=== PATIENT | male | born 1965 | race Caucasian/White ===

== ENCOUNTER 2016-07-10 09:14 | Observation (INO) | payer OTHER ==
[~2016-07-10] VITALS: Ht 188 cm; Wt 114.8 kg
[2016-07-10] VITALS (9 sets, daily range): BP systolic 126–158; BP diastolic 66–93; PULSE 65–82; RESP 17–20; TEMP 97.5–98.2; O2SAT 94–99
[~2016-07-10 09:14] MED LIST: ALBU0.63 NEB; CALC1CHW46 PO; CYTO5TAB PO; D 10CAP PO; DEPA500T3 PO; DIAZ5TAB PO; FLUT1INH7 INH; GABA800T PO; HUMUINJ5; IMIT100T PO; LEVO125T4 PO; LURA40 PO; METF1000 PO; METO100T PO; NEXI40CA PO; QUET50XR PO; SIMP50IN2 IM; SPIR50TA PO; TIZA4CAP3 PO; VENTAER INH; ZOLP10TA3 PO
--- NOTE | 2016-07-10 09:44 | PD ---
HPI Chief Complaint: Numbness/Tingling Time Seen by Provider: 09:42 Travel History International Travel<30 days: No Contact w/Intl Traveler<30days: No Traveled to known affect area: No History of Present Illness HPI 50-year-old male came to the emergency room with sudden onset history of dizziness since 7 AM, blurred vision and some left-sided facial numbness. Patient was here with his . No history of CVA or TIAs in the past. Patient is insulin-dependent diabetic and his blood glucose was 149 upon arrival. Speech was clear and patient was awake and answering questions appropriately. He says he felt like the room was spinning. No history of syncope. No history of chest pain. Patient has been nauseous. No history of vomiting. [facility] Past Medical History Narrative Medical List of his past medical, surgical, social and family history was reviewed from the nursing note. Arthritis: Yes Asthma: Yes Blood Disorders: No Bipolar Disorder: Yes Anxiety: Yes (BIPOLAR WITH PANIC ATTACKS AND SEVERE ANXIETY) Depression: Yes Heart Rhythm Problems: No Cancer: Yes (THYROID) Cardiac Catheterization: Yes (2006) Cardiovascular Problems: Yes High Cholesterol: Yes Chest Pain: No Congestive Heart Failure: No Diabetes: Yes Diminished Hearing: No Endocrine: Yes (HYPOALDOSTORISM) Gastrointestinal Disorders: Yes (GERD) GERD: Yes Genitourinary: No Headaches: Yes Hepatitis: No Hiatal Hernia: No Hypertension: Yes (SPORTS ASTHMA (RESOLVED)) Immune Disorder: No Implanted Vascular Access Dvce: Yes Musculoskeletal: Yes (LUMBAR FUSION/ NERVE STIM., ARTHRITIS) Neurologic: Yes (MIGRAINES) Psychiatric: Yes (CLAUSTROPHOBIC, BIPOLAR) Reproductive: No Respiratory: Yes (PNA) Myocardial Infarction: No Pneumonia: Yes Sleep Apnea: Yes (USES CPAP) Thyroid Disease: Yes (CANCER) Past Surgical History Abdominal Surgery: Yes (LAP CHOLECYSTECTOMY) AICD: No Body Medical Devices: LOWER BACK TITANIUM SCREWS AND RODS, SPINAL CORD STIMULATOR Cardiac Surgery: No Cholecystectomy: Yes Ear Surgery: No Endocrine Surgery: Yes (THYROIDECTOMY) Eye Surgery: No Genitourinary Surgery: Yes (2000 VASECTOMY) Gynecologic Surgery: Yes Insulin Pump: Yes Joint Replacement: No Neurologic Surgery: Yes (LUMBAR FUSION, SPINAL STIMULATOR IMPL.) Oral Surgery: No Pacemaker: No Thoracic Surgery: No Other Surgery: Yes (EX. SCAR FOOT, ARTHROSCOPY RIGHT KNEE, NEUROSTEM STENT IN AND REMOVED) Social History Alcohol Use: Yes (briefly ) Tobacco Use: No Substance Use: No Allergies-Medications (Allergen,Severity, Reaction): Coded Allergies: Calcium Channel Blockers (Verified Allergy, Mild, Edema, 07/10/16) Enalapril (Verified Allergy, Mild, Cough, 07/10/16) Questran (Verified Allergy, Mild, NAUSEA, 07/10/16) HMG-CoA Reductase Inhibitors (Verified Allergy, Unknown, enlarged liver, ) Comments List of his allergies reviewed from the nursing note. Reported Meds & Prescriptions Reported Meds & Active Scripts Active Reported Vitamin D3 (Cholecalciferol) 50,000 Unit Tab 50,000 Units PO Take 1 tablet (50,000 units) on Thursday and Thursday Morphine ER (Morphine Sulfate) 15 Mg Tab 15 Mg PO BID Pantoprazole (Pantoprazole Sodium) 40 Mg Tab 40 Mg PO DAILY Mobic (Meloxicam) 15 Mg Tab 15 Mg PO DAILY Take with food Seroquel (Quetiapine Fumarate) 25 Mg Tab 125 Mg PO HS Quetiapine (Quetiapine Fumarate) 25 Mg Tab 50-100 Mg PO DAILY IN THE AM Gabapentin 400 Mg Cap 800 Cap PO TID Albuterol Neb (Albuterol Sulfate) 0.63 Mg/3 Ml Neb 0.63 Mg NEB Q4HR NEB PRN Breo Ellipta Inh (Fluticasone/Vilanterol) 200-25 Mcg/Act Inh 1 Puff INH DAILY Use daily at the same time. Latuda (Lurasidone) 40 Mg Tab 40 Mg PO DAILY Spironolactone 50 Mg Tab 100 Mg PO BID Ventolin Hfa 18 GM Inh (Albuterol Sulfate) 90 Mcg/Act Aer 2 Puff INH Q4H PRN Chewable Calcium (Calcium Carbonate) 500 Mg Chw 500 Mg PO BID Depakote ER (Divalproex Sodium) 500 Mg Khanh 2,500 Mg PO HS Humulin R U-500 (Concentrate) Inj (Insulin Regular (Human) Concentrate Inj) 10, 000 Unit/20 Ml Vial VIA INSULIN PUMP Levothyroxine (Levothyroxine Sodium) 125 Mcg Tab 250 Mcg PO DAILY Cytomel (Liothyronine Sodium) 5 Mcg Tab 10 Mcg PO BID Metoprolol Tartrate 100 Mg Tab 200 Mg PO BID Simponi Autoinjector Inj (Golimumab) 50 Mg/0.5 Ml Syr 50 Mg IM Q30D Imitrex (Sumatriptan Succinate) 100 Mg Tab 100 Mg PO ONCE PRN If a satisfactory response has not been obtained at 2 hours, a second dose may be administered Zolpidem (Zolpidem Tartrate) 10 Mg Tab 10 Mg PO HS PRN Narrative Medication List of his home medications reviewed from the nursing note. Review of Systems Except as stated in HPI: all other systems reviewed are Neg Physical Exam Narrative GENERAL: Awake, alert, obese, moderate distress SKIN: Warm and dry. Pale HEAD: Atraumatic. Normocephalic. EYES: Pupils equal and round. No scleral icterus. No injection or drainage. ENT: No nasal bleeding or discharge. Mucous membranes pink and moist. Dry mucous membrane NECK: Trachea midline. No JVD. CARDIOVASCULAR: Regular rate and rhythm. No murmur appreciated. RESPIRATORY: No accessory muscle use. Clear to auscultation. Breath sounds equal bilaterally. GASTROINTESTINAL: Abdomen soft, non-tender, nondistended. Hepatic and splenic margins not palpable. MUSCULOSKELETAL: No obvious deformities. No clubbing. No cyanosis. No edema. NEUROLOGICAL: Awake and alert. No obvious cranial nerve deficits. Motor grossly within normal limits. Normal speech. NIH stroke score of 1 for some left-sided sensory deficit PSYCHIATRIC: Appropriate mood and affect; insight and judgment normal. Data Data Last Documented VS Orders Electrocardiogram (07/10/16 09:42) Prothrombin Time / Inr (Pt) (07/10/16 09:42) Complete Blood Count With Diff (07/10/16 09:42) Basic Metabolic Panel (Bmp) (07/10/16 09:42) Troponin I (07/10/16 09:42) Urinalysis - C+S If Indicated (07/10/16 09:42) Ct Brain W/O Iv Contrast(Rout) (07/10/16 09:42) Chest, Single Ap (07/10/16 09:42) Ecg Monitoring (07/10/16 09:42) Iv Access Insert/Monitor (07/10/16 09:42) Oximetry (07/10/16 09:42) Sodium Chloride 0.9% Flush (Ns Flush) (07/10/16 09:45) Sodium Chlorid 0.9% 500 Ml Inj (Ns 500 M (07/10/16 09:45) Type And Screen (07/10/16 09:43) Mri Brain W/O Contrast (07/10/16 ) Us Carotid Arteries Comp Bilat (07/10/16 ) Ondansetron Inj (Zofran Inj) (07/10/16 10:29) Aspirin Chew (Aspirin Chew) (07/10/16 11:45) Meclizine (Antivert) (07/10/16 12:00) Ondansetron Inj (Zofran Inj) (07/10/16 12:00) Admit Order (Ed Use Only) (07/10/16 12:02) Labs MDM Medical Decision Making Medical Screen Exam Complete: Yes Emergency Medical Condition: Yes Medical Record Reviewed: Yes Interpretation(s) Twelve-lead EKG was reviewed by me. Normal sinus rhythm, left axis deviation, low voltage, nonspecific ST-T wave changes. Heart rate of 77 bpm. Differential Diagnosis CVA, TIA, vertigo Narrative Course 11:50 AM based on his symptoms I initially contacted Dr. Paul from neurology. I did not feel the need to call it a stroke alert given the inconsistent findings on NIH stroke score. Patient had good peripheral vision bilaterally. However when I asked him to read the picture he said the picture was blurry. However when he covered his left eye he was able to identify objects and identify the picture clearly. By covering his left eye again when I asked him to read the sentences on the NIH stroke score card he was unable to read anything because he said it was blurry. Once again these symptoms have been very inconsistent with any kind of anatomical correlation with brain pathways. Dr. Paul agreed with this. He recommended 1 baby aspirin orally for now. MRI without contrast of the brain only and an ultrasound of the carotids. I called him back for ultrasound report. Patient has a spinal nerve stimulator which he has turned off. Currently waiting for MRI to be done and resulted. Admitted the patient to the hospitalist. Patient is still dizzy and nauseous and I have ordered meclizine and another dose of Zofran. 3:18 PM the MRI machine that's in this institution is incompatible with the neurostimulator that the patient has currently. I was told by the sewer and drain technician that the MRI machine that's in [facility] is the one that is compatible. Hence the patient is to be transferred to [place] to get the MRI done. I discussed the case with Dr. Rm who had initially admitted the patient here. I asked if from he was acceptable with the fact that patient gets admitted in [facility] at this point since he is still in the emergency room and there is not a bed available in this institution. He spoke with Dr. Velasco who also happens to be the patient's primary care doctor and he has accepted the patient in [facility]. Patient will not be transferred to [place] to get the MRI done and be admitted to there. Critical Care Narrative Aggregate critical care time was 30 minutes. Time to perform other separately billable procedures was not included in the critical care time. My time did not include minutes spent treating any other patients simultaneously or on activities that did not directly contribute to the patient's treatment. The services I provided to this patient were to treat and/or prevent clinically significant deterioration that could result in: Sudden onset of dizziness, TIA I provided critical care services requiring my management, as noted below: Chart data review, documentation time, medication orders and management, vital sign assessments/reviewing monitor data, ordering and reviewing lab tests, ordering and interpreting/reviewing x-rays and diagnostic studies, care of the patient and discussion of the patient with the admitting physicians. Procedures EKG Prior to Arrival: No Physician Communication Physician Communication Dr. Paul Diagnosis Primary Impression: TIA (transient ischemic attack) Qualified Code: G45.9 - Transient cerebral ischemia, unspecified type Additional Impression: Dizziness Admitting Information Admitting Physician Requests: Admit Scripts Ondansetron Odt 4 Mg Tab4 Mg SL Q6HR PRN (Nausea/Vomiting) #10 TAB Ref 0 Prov:Emmett Velasco MD PhD 07/11/16 Meclizine 25 Mg Tab25 Mg PO Q6HR PRN (DIZZINESS) #90 TAB Prov:Emmett Velasco MD PhD 07/11/[address] (Aspirin EC)81 Mg Tabdr81 Mg PO DAILY #31 TAB Prov:Emmett Velasco MD PhD 07/11/16 Disposition: 70 TRANSFER TO OTHER FACILITY Fabien García MD Jul 10, 2016 09:44 Blood Urea Nitrogen 15 MG/DL Creatinine 1.10 MG/DL Estimat Glomerular Filtration 71 ML/MIN Rate Random Glucose 150 MG/DL Calcium Level 9.2 MG/DL Troponin I LESS THAN 0.02 NG/ML Blood Type B POSITIVE Antibody Screen NEGATIVE MDM Medical Decision Making Medical Screen Exam Complete: Yes Emergency Medical Condition: Yes Medical Record Reviewed: Yes Interpretation(s) Twelve-lead EKG was reviewed by me. Normal sinus rhythm, left axis deviation, low voltage, nonspecific ST-T wave changes. Heart rate of 77 bpm. Differential Diagnosis CVA, TIA, vertigo Narrative Course 11:50 AM based on his symptoms I initially contacted Dr. Paul from neurology. I did not feel the need to call it a stroke alert given the inconsistent findings on NIH stroke score. Patient had good peripheral vision bilaterally. However when I asked him to read the picture he said the picture was blurry. However when he covered his left eye he was able to identify objects and identify the picture clearly. By covering his left eye again when I asked him to read the sentences on the NIH stroke score card he was unable to read anything because he said it was blurry. Once again these symptoms have been very inconsistent with any kind of anatomical correlation with brain pathways. Dr. Paul agreed with this. He recommended 1 baby aspirin orally for now. MRI without contrast of the brain only and an ultrasound of the carotids. I called him back for ultrasound report. Patient has a spinal nerve stimulator which she has turned off. Currently waiting for MRI to be done and resulted. Admitted the patient to the hospitalist. Patient is still dizzy and nauseous and I have ordered meclizine and another dose of Zofran. 3:18 PM the MRI machine that's in this institution is incompatible with the neurostimulator that the patient has currently. I was told by the sewer and drain technician that the MRI machine that's in [facility] is the one that is compatible. Hence the patient is to be transferred to [facility] to get the MRI done. I discussed the case with Dr. Rm who had initially admitted the patient here. I asked if from he was acceptable with the fact that patient gets admitted in [facility] at this point since he is still in the emergency room and there is not a bed available in this institution. He spoke with Dr. Velasco who also happens to be the patient's primary care doctor and he has accepted the patient in [facility]. Patient will not be transferred to [facility] to get the MRI done and be admitted to there. Critical Care Narrative Aggregate critical care time was 30 minutes. Time to perform other separately billable procedures was not included in the critical care time. My time did not include minutes spent treating any other patients simultaneously or on activities that did not directly contribute to the patient's treatment. The services I provided to this patient were to treat and/or prevent clinically significant deterioration that could result in: Sudden onset of dizziness, TIA I provided critical care services requiring my management, as noted below: Chart data review, documentation time, medication orders and management, vital sign assessments/reviewing monitor data, ordering and reviewing lab tests, ordering and interpreting/reviewing x-rays and diagnostic studies, care of the patient and discussion of the patient with the admitting physicians. Procedures EKG Prior to Arrival: No Physician Communication Physician Communication Dr. Paul Diagnosis Primary Impression: TIA (transient ischemic attack) Qualified Code: G45.9 - Transient cerebral ischemia, unspecified type Additional Impression: Dizziness Disposition: 70 TRANSFER TO OTHER FACILITY Fabien García MD Jul 10, 2016 09:44
[2016-07-10] MEDS ORDERED: SODIUM CHLORIDE 0.9% FLUSH 10 ML FLUSH IVF PRN (09:45)
[2016-07-10] MEDS ORDERED: SODIUM CHLORID 0.9% 500 ML INJ 500 ML IV ONE (09:45)
[2016-07-10 10:07] LABS: AUTOMATED NEUTROPHIL # 3.9 TH/MM3 (1.8-7.7); BASOPHIL % 0.5 % (0.0-2.0); EOSINOPHIL # 0.1 TH/MM3 (0-0.4); EOSINOPHIL % 1.4 % (0.0-4.0); HEMATOCRIT 35.1 % (39.0-51.0); LYMPH % 24.8 % (9.0-44.0); LYMPHOCYTE # 1.6 TH/MM3 (1.0-4.8); MEAN CELL VOLUME 73.1 FL (80.0-100.0); MEAN CORPUSCULAR HGB CONC 32.8 % (32.0-36.0); MONO % 12.8 % (0.0-8.0); NEUT % 60.5 % (16.0-70.0); PLATELET COUNT 142 TH/MM3 (150-450); RED CELL DISTRIBUTION WIDTH 16.9 % (11.6-17.2); WHITE BLOOD COUNT 6.5 TH/MM3 (4.0-11.0)
[2016-07-10 10:10] LABS: HEMO FLAGS AUTO DIFF
[2016-07-10 10:17] LABS: PROTHROMBIN TIME - PATIENT 10.8 SEC (9.8-11.6)
[2016-07-10] MEDS ORDERED: ONDANSETRON HCL 4 MG/2 ML VIAL ONE (10:29)
[2016-07-10 10:38] LABS: ANION GAP 7 MEQ/L (5-15); BICARBONATE 29.7 MEQ/L (21.0-32.0); BLOOD UREA NITROGEN 15 MG/DL (7-18); CHLORIDE 104 MEQ/L (98-107); GLOMERULAR FILTRATION RATE 71 ML/MIN (>89); POTASSIUM 3.8 MEQ/L (3.5-5.1); SODIUM (NA) 141 MEQ/L (136-145)
[2016-07-10 10:39] LABS: PLATELET ESTIMATE SMEAR LOW (NORMAL); PLATELET MORPHOLOGY NORMAL (NORMAL); SCAN/DIFF AUTO DIFF CONFIRMED
--- NOTE | 2016-07-10 10:43 | RADRPT ---
EXAM DATE/TIME: 07/10/2016 09:51 [facility] COMPARISON: CHEST SINGLE AP, March 12, 2016, 12:25. INDICATIONS : Dizziness. Possible cerebrovascular accident. MEDICAL HISTORY : Gastroesophageal reflux disease. Carcinoma, thyroid. Hyperlipidemia. Diabetes. Steatohepatitis. SURGICAL HISTORY : Cholecystectomy. ENCOUNTER: Initial ACUITY: 1 day PAIN SCORE: 0/10 LOCATION: Bilateral chest FINDINGS: The heart is stable. Minimal bibasilar patchiness is noted consistent with atelectasis and/or develop ing infiltrates. Degenerative changes are noted throughout the thoracic spine. CONCLUSION: 1. Minimal bibasilar patchiness consistent with atelectasis and/or developing infiltrates. Clinical correlation is recommended. 2. Degenerative changes involving the thoracic spine. Francis Ricardo MD on July 10, 2016 at 10:32 Board Certified Radiologist. This report was verified electronically.
--- NOTE | 2016-07-10 10:56 | RADRPT ---
EXAM DATE/TIME: 07/10/2016 10:19 [facility] COMPARISON: CT BRAIN W/O CONTRAST, February 07, 2011, 21:35. INDICATIONS : Dizziness, blurred vision. Facial numbess. RADIATION DOSE: 46.50 CTDIvol (mGy) MEDICAL HISTORY : Carcinoma, thyroid. Cardiovascular disease Hypertension. SURGICAL HISTORY : Thyroidectomy. ENCOUNTER: Initial ACUITY: 1 day PAIN SCALE: 0/10 LOCATION: cranial TECHNIQUE: Multiple contiguous axial images were obtained of the head. Using automated exposure control and adj ustment of the mA and/or kV according to patient size, radiation dose was kept as low as reasonably a chievable to obtain optimal diagnostic quality images. FINDINGS: CEREBRUM: The ventricles are normal for age. Diffuse and symmetric cortical atrophy has developed since the 09 03 exam. No evidence of midline shift, mass lesion, hemorrhage or acute infarction. No extra-axial f luid collections are seen. POSTERIOR FOSSA: The cerebellum and brainstem are intact. Stable, probably old lacunar type infarct in the right cere bellar hemisphere. The 4th ventricle is midline. The cerebellopontine angle is unremarkable. EXTRACRANIAL: The visualized portion of the orbits is intact. SKULL: The calvaria is intact. No evidence of skull fracture. CONCLUSION: 1. 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 2. Symmetric, bilateral cortical atrophy. No acute intracranial process. Jim Avalos MD on July 10, 2016 at 10:51 Board Certified Radiologist. This report was verified electronically.
--- NOTE | 2016-07-10 11:09 | RADRPT ---
EXAM DATE/TIME: 07/10/2016 10:31 [facility] COMPARISON: No previous studies available for comparison. INDICATIONS : Cerebrovascular accident. MEDICAL HISTORY : Carcinoma, thyroid. Hypercholesterolemia. Arthritis. Migraines. Peripheral neuropathy in feet. Hyperl ipidemia. Ashtma. HTN. GERD. Pneumonia. Sleep apnea. Hypoaldostorism. Diabetes. Steatohepatitis/fatty liver. Bipolar disorder. Anxiety. SURGICAL HISTORY : Cholecystectomy. Thyroidectomy. Lumbar fusion. Spinal stimulator implant. Cardiac cath. Gastric sle hansel. Vasectomy. Right knee surgery. Left foot surgery to remove scar tissue. Neurostem stent placed a nd removed. ENCOUNTER: Initial ACUITY: 1 day PAIN SCORE: 2/10 LOCATION: Bilateral neck PEAK SYSTOLIC VELOCITIES (cm/sec): ICA/CCA RATIO: Right: 1.0 Left: 0.8 ICA: Right: 110 Left: 96 CCA: Right: 111 Left: 115 ECA: Right: 86 Left: 86 VERTEBRAL: Right: 68 antegrade Left: 25 antegrade Elevated flow velocities and ICA/CCA ratios have been found to correlate with increased degrees of vessel stenosis, calculated as percentage of diameter relative to a normal segment of distal ICA/CCA FINDINGS: RIGHT CAROTID: No significant stenosis is visualized. The waveforms are within normal limits. LEFT CAROTID: No significant stenosis is visualized. The waveforms are within normal limits. VERTEBRAL ARTERIES: Antegrade flow is seen in both vertebral arteries. However, the waveform on the left vertebral artery appears venous with minimal arterial pulsations. MISCELLANEOUS: None. CONCLUSION: 1. Doppler waveform in the left vertebral artery shows characteristics of a venous flow possibly repr esenting a proximal stenosis. There are also diminished velocities in the left vertebral. 2. Otherwise negative. Both carotids appear to be widely patent with no significant atherosclerotic d isease. Antegrade flow in both vertebrals. Jim Avalos MD on July 10, 2016 at 11:05 Board Certified Radiologist. This report was verified electronically.
[2016-07-10] MEDS ORDERED: ASPIRIN 81 MG CHEW TAB CHEW ONE (11:45)
[2016-07-10] MEDS ORDERED: ONDANSETRON HCL 4 MG/2 ML VIAL IV PUSH ONE (12:00)
[2016-07-10] MEDS ORDERED: MECLIZINE HCL 25 MG TAB PO ONE (12:00)
[2016-07-10] MEDS ORDERED: MORP1TAB24 PO (13:21)
[2016-07-10] MEDS ORDERED: GABA400C5 PO (13:21)
[2016-07-10] MEDS ORDERED: QUET1TAB7 PO (13:21)
[2016-07-10] MEDS ORDERED: MOBI15TA PO (13:21)
[2016-07-10] MEDS ORDERED: SERO25TA PO (13:21)
[2016-07-10] MEDS ORDERED: PANT40TA3 PO (13:21)
[2016-07-10 13:23] LABS: BLOOD, URINE NEG (NEG); COMMENT (UR) CATH-CULT NOT IND; CULTURE IF INDICATED CATH CULTURE NOT IND; GLUCOSE,URINE 1000 mg/dL (NEG); HYALINE CAST, URINE 5 /lpf (RARE); KETONE, URINE TRACE mg/dL (NEG); MUCUS URINE FEW /lpf (OCC); NITRITE,URINE NEG (NEG); SQUAMOUS EPITHELIAL CELL URINE <1 /hpf (0-5); URINE COLOR YELLOW (YELLW/STRAW)
[2016-07-10] MEDS ORDERED: CHOL1TAB16 PO (13:43)
[2016-07-10] MEDS ORDERED: ONDANSETRON HCL 4 MG/2 ML VIAL IV PRN (13:45)
[2016-07-10] MEDS ORDERED: ZOLPIDEM TARTRATE 10 MG TAB PO PRN (13:45)
[2016-07-10] MEDS ORDERED: ACETAMINOPHEN 325 MG TAB PO PRN (13:45)
[2016-07-10] MEDS ORDERED: RESP: ALBUTEROL 0.63 MG/3 ML NEB (PRN) NEB (13:45)
[2016-07-10] MEDS ORDERED: SUMAtriptan SUCCINATE 50 MG TAB PO PRN (13:45)
[2016-07-10] MEDS ORDERED: ALBUTEROL SULFATE 90 MCG/ACT HFA 8 GM INHALER INH PRN (13:45)
--- NOTE | 2016-07-10 14:17 | HHI.HP ---
HPI Service [facility] Primary Care Physician Emmett Velasco MD, PhD Admission Diagnosis TIA, dizziness Chief Complaint: Dizziness Travel History International Travel<30 Days: No Contact w/Intl Traveler <30 Da: No Traveled to Known Affected Are: No History of Present Illness Mr. Zavala is a pleasant 50 y/o WM with diabetes with neuropathy and nephropathy , essential hypertriglyceridemia, HTN, hypothyroidism, chronic back pain and GERD. Pt woke up at 0700 this morning with nausea and dizziness like the room was spinning. This worsened with rolling over in bed or with sitting up, pt still unable to sit up on the stretcher due to the dizziness. He felt off balance and seemed to be falling to the sides while attempting to walk. This morning he did have a headache and reports blurry vision intermittently and left sided facial tingling sensation. He states that his daughter took a video of him this morning and we viewed this video and it revealed that he had horizontal nystagmus. He had one episode of vomiting today when he went for the CT scan. He denies any recent viral illness or symptoms, no known hx of CVA or TIA, no known history of BPV. He reports that he started Meloxicam and Morphine 1 month ago otherwise no new medications. Denies any chest pain or palpitations. No hx of A. fib or flutter. Pt noted to be in sinus rhythm on telemetry in the ED. Denies any abd pain, melena or BRBPR. He received Meclizine in the ED but states that this did not help. Head CT noted probable old lacunar type infarct in the right cerebellar hemisphere and symmetric, bilateral cortical atrophy, otherwise no acute intracranial process. Review of Head CT from 2010 noted similar findings. Pt has been seen by Neurology and they are requesting MRI of the brain. Due to the type of nerve stimulator the pt has he is unable to have MRI performed at the main campus but the MRI machine in [facility] is compatible and pt is planned for transfer to [facility]. Review of Systems Constitutional: COMPLAINS OF: Dizziness, DENIES: Fever, Chills Eyes: COMPLAINS OF: Blurred vision, DENIES: Eye pain, Vision loss, Double Vision Ears, nose, mouth, throat: COMPLAINS OF: Vertigo, DENIES: Nasal discharge, Throat pain, Hoarseness Respiratory: DENIES: Cough, Shortness of breath Cardiovascular: DENIES: Chest pain, Palpitations Gastrointestinal: COMPLAINS OF: Nausea, Vomiting, DENIES: Abdominal pain, Constipation, Diarrhea Genitourinary: DENIES: Hematuria, Dysuria Musculoskeletal: DENIES: Neck pain Integumentary: DENIES: Rash Neurologic: COMPLAINS OF: Headache, Paresthesias, Poor Balance, DENIES: Localized weakness, Speech Problems Psychiatric: DENIES: Confusion Past Family Social History Past Medical History Generalized anxiety disorder Conn's syndrome Bipolar disorder type I, mixed History of thyroid cancer Obesity Diabetes with neuropathy and nephropathy Essential hypertriglyceridemia Lumbar facet syndrome with chronic pain GERD Hypertension Hypothyroidism Metabolic syndrome Migraine headaches Obesity Panic disorder without turgor phobia Postlaminectomy syndrome Rheumatoid arthritis Drug-induced Parkinson syndrome Questionable asthmatic bronchitis Past Surgical History Bronchoscopy 02/[address] Crystal Cardiac catheter reportedly negative Cholecystectomy Circumcision due to phimosis Lumbar laminectomy Gastric bypass surgery for morbid obesity Multiple lumbar paravertebral blocks Rhizotomy Spinal neurostimulator placement Vasectomy Total thyroidectomy L4 to S1 fusion Reported Medications Vitamin D3 (Cholecalciferol) 50,000 Unit Tab 50,000 Units PO Take 1 tablet (50,000 units) on and Thursday Morphine ER (Morphine Sulfate) 15 Mg Tab 15 Mg PO BID Pantoprazole (Pantoprazole Sodium) 40 Mg Tab 40 Mg PO DAILY Mobic (Meloxicam) 15 Mg Tab 15 Mg PO DAILY Take with food Seroquel (Quetiapine Fumarate) 25 Mg Tab 125 Mg PO HS Quetiapine (Quetiapine Fumarate) 25 Mg Tab 50-100 Mg PO DAILY IN THE AM Gabapentin 400 Mg Cap 800 Cap PO TID Diazepam 5 Mg Tab 5 Mg PO DAILY PRN Albuterol Neb (Albuterol Sulfate) 0.63 Mg/3 Ml Neb 0.63 Mg NEB Q4HR NEB PRN Breo Ellipta Inh (Fluticasone/Vilanterol) 200-25 Mcg/Act Inh 1 Puff INH DAILY Use daily at the same time. Latuda (Lurasidone) 40 Mg Tab 40 Mg PO DAILY Spironolactone 50 Mg Tab 100 Mg PO BID Ventolin Hfa 18 GM Inh (Albuterol Sulfate) 90 Mcg/Act Aer 2 Puff INH Q4H PRN Chewable Calcium (Calcium Carbonate) 500 Mg Chw 500 Mg PO BID Depakote ER (Divalproex Sodium) 500 Mg Khanh 2,500 Mg PO HS Humulin R U-500 (Concentrate) Inj (Insulin Regular (Human) Concentrate Inj) 10, 000 Unit/20 Ml Vial VIA INSULIN PUMP Levothyroxine (Levothyroxine Sodium) 125 Mcg Tab 250 Mcg PO DAILY Cytomel (Liothyronine Sodium) 5 Mcg Tab 10 Mcg PO BID Metoprolol Tartrate 100 Mg Tab 200 Mg PO BID Simponi Autoinjector Inj (Golimumab) 50 Mg/0.5 Ml Syr 50 Mg IM Q30D Imitrex (Sumatriptan Succinate) 100 Mg Tab 100 Mg PO ONCE PRN If a satisfactory response has not been obtained at 2 hours, a second dose may be administered Zolpidem (Zolpidem Tartrate) 10 Mg Tab 10 Mg PO HS PRN Allergies: Coded Allergies: Calcium Channel Blockers (Verified Allergy, Mild, Edema, 07/10/16) Enalapril (Verified Allergy, Mild, Cough, 07/10/16) Questran (Verified Allergy, Mild, NAUSEA, 07/10/16) HMG-CoA Reductase Inhibitors (Verified Allergy, Unknown, enlarged liver, ) Family History Father had bipolar disorder, hypertension, hyperlipidemia, obesity, type 2 diabetes Mother has hypertension There is family history of pancreatic cancer Social History Patient is and lives with his mother He has 2 children Denies any tobacco use or illicit drug use Rarely drinks any alcohol 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 HEENT: Atraumatic. Normocephalic. No temporal or scalp tenderness. No scleral icterus. Airway patent. NECK: Trachea midline, supple, nontender. CARDIO: Regular. RESP: CTA bilaterally. No wheezes, rales, or rhonchi. ABD: +BS, soft, non-tender, nondistended. EXT: Extremities without clubbing, cyanosis, or edema. NEURO: Awake and alert. No obvious cranial nerve deficits. Motor and sensory grossly within normal limits. Normal speech. MInimal reflexes in the LE which is chronic per the pt. Laboratory Laboratory Tests Test 07/10/16 07/10/16 09:50 12:42 White Blood Count 6.5 Red Blood Count 4.80 Hemoglobin 11.5 Hematocrit 35.1 Mean Corpuscular Volume 73.1 Mean Corpuscular Hemoglobin 24.0 Mean Corpuscular Hemoglobin 32.8 Concent Red Cell Distribution Width 16.9 Platelet Count 142 Mean Platelet Volume 9.0 Neutrophils (%) (Auto) 60.5 Lymphocytes (%) (Auto) 24.8 Monocytes (%) (Auto) 12.8 Eosinophils (%) (Auto) 1.4 Basophils (%) (Auto) 0.5 Neutrophils # (Auto) 3.9 Lymphocytes # (Auto) 1.6 Monocytes # (Auto) 0.8 Eosinophils # (Auto) 0.1 Basophils # (Auto) 0.0 CBC Comment AUTO DIFF Differential Comment AUTO DIFF CONFIRMED Platelet Estimate LOW Platelet Morphology Comment NORMAL Prothrombin Time 10.8 Prothromb Time International 1.0 Ratio Sodium Level 141 Potassium Level 3.8 Chloride Level 104 Carbon Dioxide Level 29.7 Anion Gap 7 Blood Urea Nitrogen 15 Creatinine 1.10 Estimat Glomerular Filtration 71 Rate Random Glucose 150 Calcium Level 9.2 Troponin I LESS THAN 0.02 Blood Type B POSITIVE Antibody Screen NEGATIVE Urine Color YELLOW Urine Turbidity CLEAR Urine pH 6.0 Urine Specific [place] 1.031 Urine Protein TRACE Urine Glucose (UA) 1000 Urine Ketones TRACE Urine Occult Blood NEG Urine Nitrite NEG Urine Bilirubin NEG Urine Urobilinogen 2.0 Urine Leukocyte Esterase NEG Urine RBC LESS THAN 1 Urine WBC 1 Urine Squamous Epithelial <1 Cells Urine Hyaline Casts 5 Urine Mucus FEW Microscopic Urinalysis Comment CATH-CULT NOT IND Result Diagram: 07/10/1650 07/10/16949 Imaging Last Impressions Head CT 07/10/16941 Signed Impressions: Service Date/Time: June 10:19 - CONCLUSION: 1. 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 2. Symmetric, bilateral cortical atrophy. No acute intracranial process. Jim Avalos MD Chest X-Ray 07/10/16941 Signed Impressions: Service Date/Time: June 09:51 - CONCLUSION: 1. Minimal bibasilar patchiness consistent with atelectasis and/or developing infiltrates. Clinical correlation is recommended. 2. Degenerative changes involving the thoracic spine. Francis Ricardo MD Carotid Artery Ultrasound 07/10/16 0000 Signed Impressions: Service Date/Time: June 10:31 - CONCLUSION: 1. Doppler waveform in the left vertebral artery shows characteristics of a venous flow possibly representing a proximal stenosis. There are also diminished velocities in the left vertebral. 2. Otherwise negative. Both carotids appear to be widely patent with no significant atherosclerotic disease. Antegrade flow in both vertebrals. Jim Avalos MD Septic Shock Reassessment Heart: Regular rate and rhythm Lungs: Clear Skin: Warm Assessment and Plan Problem List: (1) Dizziness Status: Acute Plan: - Pt admitted with acute onset of dizziness, nausea, intermittent blurred vision and left sided facial numbness. The dizziness and nausea are worse with positional changes. - Pt with noted horizontal nystagmus when the symptoms initially began prior to admission which were noted on a video his family took. - Pt received Meclizine 25mg once in the ED. - We will continue the Meclizine 25mg Q6H scheduled. - Zofran PRN - Neurology consulted - Head CT (07/10/16) --> Probable old lacunar type infarct in the right cerebellar hemisphere, symmetric, bilateral cortical atrophy. No acute intracranial process. - Carotid US (07/10/16) --> Doppler waveform in the left vertebral artery shows characteristics of a venous flow possibly representing a proximal stenosis. There are also diminished velocities in the left vertebral. Both carotids appear to be widely patent with no significant atherosclerotic disease. Antegrade flow in both vertebrals. - MRI/MRA of the brain will be obtained to evaluate the cerebellum - Pt is planned for transfer to [facility] to get this accomplished, Dr. Velasco has accepted the pt for transfer. - DVT prophylaxis with SCDs (2) Blurred vision, bilateral Status: Acute Plan: - See above. (3) Diabetes mellitus type 2, insulin dependent Status: Chronic Plan: - NovoLog SSI - Accu checks (4) HTN (hypertension) Status: Chronic Plan: - Home meds resumed (5) Hyperlipidemia Status: Chronic Plan: - Home meds resumed (6) Rheumatoid arthritis Status: Chronic Plan: - Home meds resumed (7) Drug-induced Parkinson's disease Status: Chronic Plan: - Home meds resumed (8) Bipolar depression Status: Chronic Plan: - Home meds resumed Assessment and Plan Patient examined. Assessment and plan formulated with Heike Castro PA-C. I agree with the above. vertigo. nystagmus noted. could be BPV. Given old cerebellar cva on CT we will get MRI of brain to [facility] for acute cerebellar cva. unable to get MRI at [place] due to lumbar spinal stim. Pt transferring to [place] for MRI and will be admitted there. spoke to Dr Velasco. neurology requested transfer and will consult. Heike Castro Jul 10, 2016 14:17 Anthony Glover MD Jul 10, 2016 19:22
--- NOTE | 2016-07-10 14:38 | EKG ---
Date Performed: 07/10/2016 Time Performed: 09:47:02 PTAGE: 50 years EKG: Sinus rhythm INFERIOR MYOCARDIAL INFARCTION ABNORMAL ECG Compared to prior tracing no significant change PREVIOUS TRACING 01/25/2016 08.45.38 DOCTOR: Ramon Mc Interpretating Date/Time 07/10/2016 14:37:00
[2016-07-10] MEDS ORDERED: ONDANSETRON HCL 4 MG/2 ML VIAL IV ONE (16:00)
[2016-07-10] MEDS ORDERED: GLUCAGON 1 MG/ML VIAL OTHER PRN (16:15)
[2016-07-10] MEDS ORDERED: DEXTROSE 50% IN WATER 50 ML VIAL(D50) IV PUSH PRN (16:15)
[2016-07-10] MEDS: MECLIZINE HCL 25 MG TAB PO SCH ×2 (17:52→23:51)
[2016-07-10] MEDS ORDERED: QUEtiapine FUMARATE 100 MG TAB PO SCH (21:00)
[2016-07-10] MEDS: INSULIN ASPART SUPPLEMENTAL SCALE SQ SCH (21:00)
[2016-07-10] MEDS ORDERED: LIOTHYRONINE SODIUM 5 MCG TAB PO SCH (21:00)
[2016-07-10] MEDS ORDERED: DIVALPROEX SODIUM E.R. 500 MG TAB PO SCH (21:00)
[2016-07-10] MEDS ORDERED: QUEtiapine FUMARATE 25 MG TAB PO SCH (21:00)
--- NOTE | 2016-07-10 21:07 | RADHPO ---
EXAM DATE/TIME: 07/10/2016 19:57 [facility] COMPARISON: No previous studies available for comparison. INDICATIONS : CVA. MEDICAL HISTORY : Hypertension. Diabetes mellitus type 2. Carcinoma, thyroid. SURGICAL HISTORY : Cholecystectomy. Thyroidectomy. Carpal tunnel syndrome. Lumbar fusion. Spinal stimulator implant. Car diac cath. Gastric sleeve. Vasectomy. ENCOUNTER: Subsequent ACUITY: 1 day PAIN SCORE: 0/10 LOCATION: cranial TECHNIQUE: Multiplanar, multisequence MRI of the brain was performed without contrast. FINDINGS: CEREBRUM: The ventricles are normal for age. No evidence of midline shift, mass lesion, hemorrhage or acute in farction. No extraaxial fluid collections are seen. The pituitary gland and suprasellar cistern are normal in configuration. WHITE MATTER: No significant signal abnormalities are seen in the white matter. POSTERIOR FOSSA: The cerebellum and brainstem are intact except for small remote lacunar infarct right cerebellar leigh sphere.. The 4th ventricle is midline. The cerebellopontine angle is unremarkable. The cerebellar t onsils are normal in position. DIFFUSION IMAGING: No focal areas of restricted diffusion are seen. No evidence of acute infarction. EXTRACRANIAL: The visualized portions of the orbits and paranasal sinuses are unremarkable. CONCLUSION: 1. No acute findings. Small remote lacunar infarct right cerebellar hemisphere. Fermin Gordon MD on July 10, 2016 at 21:02 Board Certified Radiologist. This report was verified electronically.
--- NOTE | 2016-07-10 21:12 | RADHPO ---
EXAM DATE/TIME: 07/10/2016 19:57 [facility] COMPARISON: No previous studies available for comparison. INDICATIONS : CVA. MEDICAL HISTORY : Hypertension. Diabetes mellitus type 2. Carcinoma, thyroid. SURGICAL HISTORY : Cholecystectomy. Thyroidectomy. Carpal tunnel syndrome. Lumbar fusion. Spinal stimulator implant. Car diac cath. Gastric sleeve. Vasectomy. ENCOUNTER: Subsequent ACUITY: 1 day PAIN SCORE: 0/10 LOCATION: cranial Please note a normal MRA of the brain does not entirely exclude the possibility of a small aneurysm, nor the possibility of distal intracranial vessel disease. TECHNIQUE: 3D time of flight MRA was performed. Source images, multiplanar STS MIP, and 3D volume MIP reconstru ctions were reviewed. FINDINGS: There is excellent visualization of the major intracranial arteries out to the second-order branch ve ssels. There is no evidence for aneurysm, vessel truncation or stenosis, and no evidence for vascula r malformation. CONCLUSION: Normal examination for a patient of this age. Fermin Gordon MD on July 10, 2016 at 21:06 Board Certified Radiologist. This report was verified electronically.
[2016-07-10] MEDS: SPIRONOLACTONE 50 MG TAB PO SCH (21:45)
[2016-07-10] MEDS: METOPROLOL TARTRATE 100 MG TAB PO SCH (21:45)
[2016-07-10] MEDS: MORPHINE SULFATE 15 MG CONTROLLED RELEASE TAB PO SCH (21:47)
[2016-07-10] MEDS: LIOTHYRONINE SODIUM 5 MCG TAB PO SCH (23:51)
[2016-07-11] VITALS (7 sets, daily range): BP systolic 115–127; BP diastolic 75–87; PULSE 67–75; RESP 18–20; TEMP 95.7–97.7; O2SAT 92–96
[2016-07-11] MEDS: MECLIZINE HCL 25 MG TAB PO SCH ×3 (06:35→17:19)
[2016-07-11] MEDS: INSULIN ASPART SUPPLEMENTAL SCALE SQ SCH ×3 (06:37→17:19)
[2016-07-11] MEDS ORDERED: DIAZEPAM 5 MG TAB PO PRN (08:45)
--- NOTE | 2016-07-11 08:48 | HHI.PR ---
Subjective Remarks Assumed care of patient as he was transferred to [facility] in order to have MRI compatible with his implantable device. Patient reports it is still quite dizzy this morning noting that the room "spins " anytime he turns his head. He noted this relatively abruptly yesterday morning upon awakening. Denies any recent head trauma. He had some reported left facial weakness yesterday but this apparently has resolved. He is able to move all extremities well. He reports that he ambulated to the restroom overnight but nearly fell twice trying to do so. I have advised him regarding fall precautions and to not get out of the bed unassisted. Objective Vitals Vital Signs Date Time Temp Pulse Resp B/P Pulse Ox O2 Delivery O2 Flow Rate FiO2 07/11/16 08:00 96.8 70 18 127/87 92 07/11/16 04:00 97.3 67 20 122/87 96 07/11/16 00:00 96.4 75 20 118/75 96 07/10/16 21:30 73 07/10/16 21:00 97.5 75 20 142/89 97 07/10/16 19:08 64 18 137/69 97 07/10/16 17:51 97.8 67 18 137/66 99 Room Air 07/10/16 15:11 65 18 126/68 97 Room Air 07/10/16 15:11 Room Air 07/10/16 12:11 69 18 127/83 96 Room Air 07/10/16 10:27 73 18 129/79 97 Room Air 07/10/16 09:50 73 18 158/93 94 Room Air 07/10/16 09:43 94 Room Air 07/10/16 09:18 98.2 82 17 143/90 98 07/10/16 07/10/16 07/11/16 15:00 23:00 07:00 Intake Total 120 ml Balance 120 ml Intake Oral 120 ml # Voids 1 # Bowel Movements 0 GENERAL: Sleeping but arouses to voice. Alert and oriented. Cooperative with exam. No acute distress. SKIN: Warm and dry. HEAD: Normocephalic. EYES: No scleral icterus. No injection or drainage. Extraocular motions intact with pupils equally round. He had slight rapid beating horizontal nystagmus to the left which quickly resolved. NECK: Supple, trachea midline. No JVD or lymphadenopathy. No bruit. CARDIOVASCULAR: Regular rate and rhythm without murmurs, gallops, or rubs. RESPIRATORY: Breath sounds equal bilaterally. No accessory muscle use. GASTROINTESTINAL: Abdomen soft, non-tender, nondistended. MUSCULOSKELETAL: No cyanosis, or edema. Moves all extremity as well. 5 out of 5 strength 4 extremities. NEURO: Follows simple commands. Finger to nose normal. Lateral nystagmus intermittently as noted above. No other focal deficits. Result Diagram: 07/10/16 0950 07/10/1650 Imaging Last Impressions Head CT 07/10/1642 Signed Impressions: Service Date/Time: June 10:19 - CONCLUSION: 1. 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 2. Symmetric, bilateral cortical atrophy. No acute intracranial process. Jim Avalos MD Chest X-Ray 07/10/16941 Signed Impressions: Service Date/Time: June 09:51 - CONCLUSION: 1. Minimal bibasilar patchiness consistent with atelectasis and/or developing infiltrates. Clinical correlation is recommended. 2. Degenerative changes involving the thoracic spine. Francis Ricardo MD Carotid Artery Ultrasound 07/10/16 0000 Signed Impressions: Service Date/Time: June 10:31 - CONCLUSION: 1. Doppler waveform in the left vertebral artery shows characteristics of a venous flow possibly representing a proximal stenosis. There are also diminished velocities in the left vertebral. 2. Otherwise negative. Both carotids appear to be widely patent with no significant atherosclerotic disease. Antegrade flow in both vertebrals. Jim Avalos MD Urinary Catheter: No Vascular Central Line Catheter: No A/P Problem List: (1) Dizziness Status: Acute Plan: - Pt admitted with acute onset of dizziness, nausea, intermittent blurred vision and left sided facial numbness. The dizziness and nausea are worse with positional changes. - Pt with noted horizontal nystagmus when the symptoms initially began prior to admission which were noted on a video his family took. - We will continue the Meclizine 25mg Q6H scheduled and Zofran PRN - Neurology consulted - Head CT (07/10/16) --> Probable old lacunar type infarct in the right cerebellar hemisphere, symmetric, bilateral cortical atrophy. No acute intracranial process. - Carotid US (07/10/16) --> Doppler waveform in the left vertebral artery shows characteristics of a venous flow possibly representing a proximal stenosis. There are also diminished velocities in the left vertebral. Both carotids appear to be widely patent with no significant atherosclerotic disease. Antegrade flow in both vertebrals. - MRI/MRA of the brain reviewed an MRI confirms old lacunar right cerebellar infarct - DVT prophylaxis with SCDs We'll add low-dose aspirin. Symptoms and exam consistent with vertigo of peripheral origin. We'll try vestibular rehabilitation today. Fall precautions and out of bed with assistance only. We will give diazepam as needed for breakthrough vertigo. (2) Blurred vision, bilateral Status: Acute Plan: - See above. (3) Diabetes mellitus type 2, insulin dependent Status: Chronic Plan: - NovoLog SSI - Accu checks (4) HTN (hypertension) Status: Chronic Plan: - Home meds resumed Good control. (5) Hyperlipidemia Status: Chronic Plan: - Home meds resumed (6) Rheumatoid arthritis Status: Chronic Plan: - Home meds resumed (7) Drug-induced Parkinson's disease Status: Chronic Plan: - Home meds resumed (8) Bipolar depression Status: Chronic Plan: - Home meds resumed Discharge Planning Hopefully discharge home later today or tomorrow. Awaiting neurology evaluation. Problem Qualifiers (1) HTN (hypertension): Qualified Code: I10 - Essential hypertension Emmett Velasco MD PhD Jul 11, 2016 08:48
[2016-07-11] MEDS ORDERED: FLUTICASONE 100 MCG/VILANTEROL 25 MCG INHALER INH SCH (09:00)
[2016-07-11] MEDS ORDERED: ASPIRIN EC 81 MG TABEC PO SCH (09:00)
[2016-07-11] MEDS ORDERED: LURASIDONE 40 MG TAB PO SCH (09:00)
[2016-07-11] MEDS ORDERED: PANTOPRAZOLE SOD 40 MG DELAYED RELEASE TAB PO SCH (09:00)
[2016-07-11] MEDS: MORPHINE SULFATE 15 MG CONTROLLED RELEASE TAB PO SCH (09:47)
[2016-07-11] MEDS: LIOTHYRONINE SODIUM 5 MCG TAB PO SCH (09:47)
[2016-07-11] MEDS: METOPROLOL TARTRATE 100 MG TAB PO SCH (09:47)
[2016-07-11] MEDS ORDERED: IOHEXOL 350 MG/ML 10 ML VIAL (for RAD DIAG) IV ONE (09:57)
--- NOTE | 2016-07-11 10:16 | MB ---
cc: MANUEL GONZALEZ MD DATE OF CONSULTATION 07/11/2016 REASON FOR CONSULTATION Numbness, tingling and spinning sensation of the head. HISTORY OF PRESENT ILLNESS Mr. Zavala is a 50-year-old male who came to the emergency room at [facility] with sudden onset of dizziness, spinning sensation, and left-sided face numbness. The patient denies any history of stroke, head injury or TIA. The patient is diabetic and he states that this is the first time he has experienced such a spell. He also states that he has had another spinning sensation with nausea and vomiting while he was using the restroom this morning. In the emergency room setting, I talked to the ED attending and an agreement was not to call a stroke alert because of the inconsistent finding and a very low NIH score. Head CT scan without contrast revealed probable old lacunar infarct in the right cerebellar hemisphere and symmetric bilateral cortical atrophy and no acute intracranial process. Review of the medical records revealed that the patients daughter took a video of him while he has had this episode and there was horizontal nystagmus. REVIEW OF SYSTEMS A 12-point review of systems is negative except for what is stated in the HPI. PAST MEDICAL HISTORY 1. General anxiety disorder 2. Conn's syndrome 3. Bipolar disorder 4. History of thyroid cancer 5. Obesity 6. Diabetes with diabetic neuropathy and diabetes nephropathy 7. Essential hypertriglyceridemia 8. Lumbar facet syndrome with chronic pain. 9. GERD 10. Hypertension 11. Hypothyroidism 12. Metabolic syndrome 13. Mixed migraine expects 14. Obesity 15. Drug induced Parkinson's 16. Rheumatoid arthritis PAST SURGICAL HISTORY 1. Bronchoscopy 2. Cardiac catheter negative 3. Cholecystectomy 4. Lumbar laminectomy 5. Circumcision due to hemolysis 6. Gastric bypass surgery 7. Multiple lumbar vertebral blocks 8. Rhizotomy 9. Spinal neuro transplant 10. Stimulator placement 11. Vasectomy 12. Total thyroidectomy 13. L4 and S1 fusion FAMILY HISTORY Father with bipolar, hypertension, hyperlipidemia, obesity, type 2 diabetes. Mother hypertension. SOCIAL HISTORY The patient is , lives with his mother, has two children, denies tobacco or illicit drug use. He drinks alcohol. EXAMINATION GENERAL: Awake, alert, oriented, obese, a good historian. Mild distress due to dizziness. HEENT: Head is atraumatic, normocephalic. Intact hearing and intact vision. NECK: Carotid. CARDIAC: Normal sinus rhythm. RESPIRATORY: Clear to auscultation bilateral. No wheezes. EXTREMITIES: No clubbing, no cyanosis or edema. NEUROLOGIC: Awake, alert, and oriented to time, person and place. Intact speech content. Cranial nerves are grossly intact. There is mild horizontal nystagmus to the left. No diplopia. Motor examination 5/5 bilateral and symmetrical. Sensory examination is intact. Wrvsvi-rp-wrlr, qoqr-dd-htdw is intact. Reflexes 2+ bilateral and symmetrical, sluggish ankle reflexes, bilateral plantars' are downgoing. Stance is normal. Not ataxic. Bilateral coarse tremor right hand greater than the left hand. DIAGNOSTICS IMAGING Head CT scan revealed probable old lacunar infarct in the right cerebellar hemisphere, symmetric bilateral cortical atrophy. No intracranial process. Brain MRI with no acute findings, small remote infarct involving the right cerebellar hemisphere. Head MRA normal examination. Carotid ultrasound revealed Doppler waveform of the left vertebral artery characteristic of venous flow possibly representing a proximal stenosis. There is also diminished velocities in the left vertebral artery, otherwise negative. Both carotids appear widely patent with no significant atherosclerotic disease. DIAGNOSTIC IMPRESSION 1. Vertigo 2. Possible posterior circulation insufficiency 3. Drug induced Parkinsonism PLAN 1. Neuro checks q4 hourly 2. Aspirin 81 mg 3. Meclizine 25 mg p.r.n. q8 4. Given the abnormal carotid ultrasound, a CTA of the neck with contrast. 5. Fall precautions 6. DVT prophylaxis Thank you for the opportunity to participate in the care of your patient. MD JUAN C Jackson/DELIA /9:04 AM /10:03 AM
[2016-07-11] MEDS: SPIRONOLACTONE 50 MG TAB PO SCH (10:40)
--- NOTE | 2016-07-11 11:27 | RADHPO ---
EXAM DATE/TIME: 07/11/2016 09:36 [facility] COMPARISON: US CAROTID ARTERIES, July 10, 2016, 10:31. INDICATIONS : Vertigo. Abnormal ultrasound. IV CONTRAST: 85 cc Omnipaque 350 (iohexol) IV RADIATION DOSE: 42.77 CTDIvol (mGy) MEDICAL HISTORY : Carcinoma, thyroid. Gastroesophageal reflux disease. Cardiovascular diseaseHypertension. Asthma. Di abetes. SURGICAL HISTORY : Fusion, lumbar. Cholecystectomy.Thyroidectomy.Gastric sleeve. ENCOUNTER: Initial ACUITY: 2 days PAIN SCALE: 0/10 LOCATION: neck Elevated flow velocities and ICA/CCA ratios have been found to correlate with increased degrees of vessel stenosis, calculated as percentage of diameter relative to a normal segment of distal ICA/CCA. TECHNIQUE: Volumetric scanning was performed using a multirow detector CT scanner. The data was post processed with a variety of visualization algorithms including full-volume maximum intensity projection, multip lanar sliding thin-slab reformation, curved-planar reformation, and surface-rendering techniques. Us ing automated exposure control and adjustment of the mA and/or kV according to patient size, radiatio n dose was kept as low as reasonably achievable to obtain optimal diagnostic quality images. FINDINGS: AORTIC ARCH: Truncus arch anatomy identified with common origin of the right brachiocephalic artery and left commo n carotid artery from the arch. Arch vessels are widely patent. RIGHT CAROTID: The common carotid artery is intact. The carotid bulb has a normal configuration without ulceration o r narrowing. The internal carotid artery lumen is smooth without stenosis. The external carotid evelin ry is intact. LEFT CAROTID: The common carotid artery is intact. The carotid bulb has a normal configuration without ulceration or narrowing. The internal carotid artery lumen is smooth without stenosis. The external carotid ar sebas is intact. VERTEBRALS: Vertebrals are patent bilaterally, right side dominant. CONCLUSION: No evidence of carotid stenosis. Diminutive left vertebral artery. Wilberto Garcia MD on July 11, 2016 at 11:00 Board Certified Radiologist. This report was verified electronically.
[2016-07-11] MEDS ORDERED: ASPI81TA11 PO (17:08)
[2016-07-11] MEDS ORDERED: MECL-62 PO (17:08)
[2016-07-11] MEDS ORDERED: ONDA4TAB7 SL (17:08)
--- NOTE | 2016-07-11 17:13 | HHI.DS ---
Discharge Summary Admission Date Jul 10, 2016 at 12:04 Discharge Date: Jul 11, 2016 Admitting Diagnosis TIA, dizziness (1) Dizziness Diagnosis: Principal (2) Blurred vision, bilateral Diagnosis: Principal (3) Diabetes mellitus type 2, insulin dependent Diagnosis: Secondary (4) HTN (hypertension) Diagnosis: Secondary (5) Hyperlipidemia Diagnosis: Secondary (6) Rheumatoid arthritis Diagnosis: Secondary (7) Drug-induced Parkinson's disease Diagnosis: Secondary (8) Bipolar depression Diagnosis: Secondary Consultants Dr Paul, neurology Brief History Mr. Zavala is a pleasant 50 y/o WM with diabetes with neuropathy and nephropathy , essential hypertriglyceridemia, HTN, hypothyroidism, chronic back pain and GERD. Pt woke up at 0700 this morning with nausea and dizziness like the room was spinning. This worsened with rolling over in bed or with sitting up, pt still unable to sit up on the stretcher due to the dizziness. He felt off balance and seemed to be falling to the sides while attempting to walk. This morning he did have a headache and reports blurry vision intermittently and left sided facial tingling sensation. He states that his daughter took a video of him this morning and we viewed this video and it revealed that he had horizontal nystagmus. He had one episode of vomiting today when he went for the CT scan. He denies any recent viral illness or symptoms, no known hx of CVA or TIA, no known history of BPV. He reports that he started Meloxicam and Morphine 1 month ago otherwise no new medications. Denies any chest pain or palpitations. No hx of A. fib or flutter. Pt noted to be in sinus rhythm on telemetry in the ED. Denies any abd pain, melena or BRBPR. He received Meclizine in the ED but states that this did not help. Head CT noted probable old lacunar type infarct in the right cerebellar hemisphere and symmetric, bilateral cortical atrophy, otherwise no acute intracranial process. Review of Head CT from 2010 noted similar findings. Pt has been seen by Neurology and they are requesting MRI of the brain. Due to the type of nerve stimulator the pt has he is unable to have MRI performed at the main campus but the MRI machine in [facility] [place] [place] is compatible and pt is planned for transfer to [facility] [place] [place]. CBC/BMP: 07/10/16 0950 07/10/16 0950 Significant Findings Laboratory Tests Test 07/10/16 07/10/16 09:50 12:42 Hemoglobin 11.5 GM/DL (13.0-17.0) Hematocrit 35.1 % (39.0-51.0) Mean Corpuscular Volume 73.1 FL (80.0-100.0) Mean Corpuscular Hemoglobin 24.0 PG (27.0-34.0) Platelet Count 142 TH/MM3 (150-450) Monocytes (%) (Auto) 12.8 % (0.0-8.0) Platelet Estimate LOW (NORMAL) Estimat Glomerular Filtration 71 ML/MIN (>89) Rate Random Glucose 150 MG/DL (74-106) Troponin I LESS THAN 0.02 NG/ML (0.02-0.05) Urine Glucose (UA) 1000 mg/dL (NEG) Urine Ketones TRACE mg/dL (NEG) Urine Mucus FEW /lpf (OCC) Imaging Last 72 hours Impressions Neck CTA 07/11/16 0000 Signed Impressions: Service Date/Time: Monday, July 11, 2016 09:36 - CONCLUSION: No evidence of carotid stenosis. Diminutive left vertebral artery. Wilberto Garcia MD Head Magnetic Resonance Angiography 07/10/16 1540 Signed Impressions: Service Date/Time: June 19:57 - CONCLUSION: Normal examination for a patient of this age. Fermin Gordon MD Head CT 07/10/16 0942 Signed Impressions: Service Date/Time: June 10:19 - CONCLUSION: 1. 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 2. Symmetric, bilateral cortical atrophy. No acute intracranial process. Jim Avalos MD Chest X-Ray 07/10/16 0942 Signed Impressions: Service Date/Time: June 09:51 - CONCLUSION: 1. Minimal bibasilar patchiness consistent with atelectasis and/or developing infiltrates. Clinical correlation is recommended. 2. Degenerative changes involving the thoracic spine. Francis Ricardo MD Carotid Artery Ultrasound 07/10/16 0000 Signed Impressions: Service Date/Time: June 10:31 - CONCLUSION: 1. Doppler waveform in the left vertebral artery shows characteristics of a venous flow possibly representing a proximal stenosis. There are also diminished velocities in the left vertebral. 2. Otherwise negative. Both carotids appear to be widely patent with no significant atherosclerotic disease. Antegrade flow in both vertebrals. Jim Avalos MD Brain MRI 07/10/16 0000 Signed Impressions: Service Date/Time: , July 10, 2016 19:57 - CONCLUSION: 1. No acute findings. Small remote lacunar infarct right cerebellar hemisphere. Fermin Gordon MD Hospital Course Pt continued to have some vertigo which improved with vestib rehab. MRI and CT demonstrated possible old lacunar infarct in left cerebellum. No focal deficits noted. Pt recovered well and had no more numbness or weakness on left side of face. Pt Condition on Discharge: Stable Discharge Disposition: Discharge Home Discharge Instructions DIET: Follow Instructions for: Diabetic Diet Activities you can perform: Weight Bearing as Roberta Other Activity Instructions: advance activity slowly Fall precautions. Follow up Referrals: Neurology PCP Follow-up New Medications: Ondansetron Odt (Ondansetron Odt) 4 Mg Tab 4 MG SL Q6HR PRN Nausea/Vomiting #[address] (Aspirin EC) 81 Mg Tabdr 81 MG PO DAILY neuro changes #31 TAB Meclizine (Meclizine) 25 Mg Tab 25 MG PO Q6HR PRN DIZZINESS #90 TAB Continued Medications: Albuterol 18 GM Inh (Ventolin Hfa 18 GM Inh) 90 Mcg/Act Aer 2 PUFF INH Q4H PRN SHORTNESS OF BREATH #1 Ref 0 INHALER Albuterol Neb (Albuterol Neb) 0.63 Mg/3 Ml Neb 0.63 MG NEB Q4HR NEB PRN SHORTNESS OF BREATH #25 Ref 0 NEBULE Calcium Carbonate (Chewable Calcium) 500 Mg Chw 500 MG PO BID Cholecalciferol (Vitamin D3) 50,000 Unit Tab 25282 UNITS PO Take 1 tablet (50,000 units) on Thursday and Thursday Nutritional Supplement #1 Ref 0 BOTTLE Divalproex ER (Depakote ER) 500 Mg Khanh 2500 MG PO HS Control Seizures #30 Ref 0 TAB Fluticasone-Vilanterol Inh (Breo Ellipta Inh) 200-25 Mcg/Act Inh 1 PUFF INH DAILY Use daily at the same time. #1 Ref 0 INHALER Gabapentin (Gabapentin) 400 Mg Cap 800 CAP PO TID #30 Ref 0 CAP Golimumab Autoinjector Inj (Simponi Autoinjector Inj) 50 Mg/0.5 Ml Syr 50 MG IM Q30D #1 Ref 0 SYRINGE Insulin Regular (Human) Concentrate Inj (Humulin R U-500 (Concentrate) Inj) 10, 000 Unit/20 Ml Vial VIA INSULIN PUMP Blood Sugar Management Ref 0 VIAL Levothyroxine (Levothyroxine) 125 Mcg Tab 250 MCG PO DAILY Thyroid #30 Ref 0 TAB Liothyronine (Cytomel) 5 Mcg Tab 10 MCG PO BID Thyroid Supplement #30 Ref 0 TAB Lurasidone (Latuda) 40 Mg Tab 40 MG PO DAILY #30 Ref 0 TAB Meloxicam (Mobic) 15 Mg Tab 15 MG PO DAILY Take with food Arthritis pain Ref 0 TAB Metoprolol Tartrate (Metoprolol Tartrate) 100 Mg Tab 200 MG PO BID #120 Ref 0 TAB Morphine ER (Morphine ER) 15 Mg Tab 15 MG PO BID Pain Management Ref 0 TAB Pantoprazole (Pantoprazole) 40 Mg Tab 40 MG PO DAILY Reflux #30 Ref 0 TAB Quetiapine (Quetiapine) 25 Mg Tab 50-100 MG PO DAILY IN THE AM #60 Ref 0 TAB Quetiapine (Seroquel) 25 Mg Tab 125 MG PO HS #60 Ref 0 TAB Spironolactone (Spironolactone) 50 Mg Tab 100 MG PO BID #60 Ref 0 TAB Sumatriptan (Imitrex) 100 Mg Tab 100 MG PO ONCE If a satisfactory response has not been obtained at 2 hours, a second dose may be administered PRN MIGRAINE Ref 0 TAB Zolpidem (Zolpidem) 10 Mg Tab 10 MG PO HS PRN INSOMNIA Ref 0 TAB Discontinued Medications: Diazepam (Diazepam) 5 Mg Tab 5 MG PO DAILY PRN ANXIETY Ref 0 TAB Emmett Velasco MD PhD Jul 11, 2016 17:13
== END 2016-07-11 18:49 | disposition home or self-care (01) ==
LOC: NEPC 09:14 → NEDA 12:04 → PH3A 20:54
PROVIDERS: ADMIT Family Medicine; ATTEND Family Medicine
DX: R42 Dizziness and giddiness (principal); H53.8 Other visual disturbances; E78.5 Hyperlipidemia, unspecified; M06.9 Rheumatoid arthritis, unspecified; G21.19 Other drug induced secondary parkinsonism; F31.60 Bipolar disorder, current episode mixed, unspecified; E11.40 Type 2 diabetes mellitus with diabetic neuropathy, unspecified; E11.21 Type 2 diabetes mellitus with diabetic nephropathy; K21.9 Gastro-esophageal reflux disease without esophagitis; I10 Essential (primary) hypertension; E78.1 Pure hyperglyceridemia; E03.9 Hypothyroidism, unspecified; M54.9 Dorsalgia, unspecified; G89.29 Other chronic pain; E66.9 Obesity, unspecified; G43.909 Migraine, unspecified, not intractable, without status migrainosus; F41.0 Panic disorder [episodic paroxysmal anxiety]; J45.909 Unspecified asthma, uncomplicated; E78.00 Pure hypercholesterolemia, unspecified; G47.30 Sleep apnea, unspecified; Z98.84 Bariatric surgery status; Z85.850 Personal history of malignant neoplasm of thyroid; Z79.4 Long term (current) use of insulin; Z79.51 Long term (current) use of inhaled steroids; Z88.8 Allergy status to other drugs, medicaments and biological substances; Z68.32 Body mass index [BMI] 32.0-32.9, adult
CPT/HCPCS: 70450; 70498; 70544; 70551; 71010; 80048; 81001; 82948; 84484; 85025; 85610; 86850; 86900; 86901; 93005; 93880; 96361; 96374; G0378; G8987-GP; G8988-GP; J1815; J2405; J7040; Q9967

== ENCOUNTER 2016-07-26 09:14 | Emergency (ER) | payer OTHER ==
[~2016-07-26] VITALS: Ht 188 cm; Wt 125.6 kg
[~2016-07-26 09:14] MED LIST changes: +ASPI81TA11 PO; +CHOL1TAB16 PO; -D 10CAP PO; -DIAZ5TAB PO; +GABA400C5 PO; -GABA800T PO; +MECL-62 PO; -METF1000 PO; +MOBI15TA PO; +MORP1TAB24 PO; -NEXI40CA PO; +ONDA4TAB7 SL; +PANT40TA3 PO; +QUET1TAB7 PO; -QUET50XR PO; +SERO25TA PO; -TIZA4CAP3 PO
[2016-07-26 09:21] VITALS: BP 128/82; PULSE 77; RESP 16; TEMP 98.7; O2SAT 100
[2016-07-26 09:31] VITALS: BP 137/79; PULSE 72; RESP 18; O2SAT 98
[2016-07-26] MEDS ORDERED: ONDANSETRON ODT 4 MG TAB PO ONE (10:15)
[2016-07-26] MEDS ORDERED: ZOFR4TAB PO (10:22)
[2016-07-26] MEDS ORDERED: MECL-62 PO (10:22)
--- NOTE | 2016-07-26 10:22 | PD ---
HPI Chief Complaint: Dizziness Time Seen by Provider: 10:12 Travel History International Travel<30 days: No Contact w/Intl Traveler<30days: No Traveled to known affect area: No History of Present Illness HPI Patient presents with dizziness. Reports that the room spins about him with any head movement. History of BPV 2 weeks ago. Reports intention to follow-up with vestibular rehabilitation that did not occur after that episode. Awoke this morning with recurrence of symptoms. Denies any recent illness. Associated nausea with one episode of vomiting. PFSH Past Medical History Arthritis: Yes Asthma: Yes Blood Disorders: No Bipolar Disorder: Yes Anxiety: Yes (BIPOLAR WITH PANIC ATTACKS AND SEVERE ANXIETY) Depression: Yes Heart Rhythm Problems: No Cancer: Yes (THYROID) Cardiac Catheterization: Yes (2006) Cardiovascular Problems: Yes High Cholesterol: Yes Chemotherapy: No Chest Pain: No Congestive Heart Failure: No COPD: No Cerebrovascular Accident: No Diabetes: Yes Patient Takes Glucophage: No Diminished Hearing: No Endocrine: Yes (HYPOALDOSTORISM) Gastrointestinal Disorders: Yes (GERD) GERD: Yes Genitourinary: No Headaches: Yes Hepatitis: No Hiatal Hernia: No Hypertension: Yes (SPORTS ASTHMA (RESOLVED)) Immune Disorder: No Implanted Vascular Access Dvce: Yes Musculoskeletal: Yes (LUMBAR FUSION/ NERVE STIM., ARTHRITIS) Neurologic: Yes (MIGRAINES) Psychiatric: Yes (CLAUSTROPHOBIC, BIPOLAR) Reproductive: No Respiratory: Yes (PNA) Migraines: Yes Myocardial Infarction: No Pneumonia: Yes Radiation Therapy: Yes Renal Failure: No Seizures: No Sleep Apnea: Yes (USES CPAP) Thyroid Disease: Yes (CANCER) Influenza Vaccination: Yes Past Surgical History Abdominal Surgery: Yes (LAP CHOLECYSTECTOMY) AICD: No Body Medical Devices: LOWER BACK TITANIUM SCREWS AND RODS, SPINAL CORD STIMULATOR Cardiac Surgery: No Cholecystectomy: Yes Ear Surgery: No Endocrine Surgery: Yes (THYROIDECTOMY) Eye Surgery: No Genitourinary Surgery: Yes (2000 VASECTOMY) Gynecologic Surgery: Yes Insulin Pump: Yes Joint Replacement: No Neurologic Surgery: Yes (LUMBAR FUSION, SPINAL STIMULATOR IMPL.) Oral Surgery: No Pacemaker: No Thoracic Surgery: No Other Surgery: Yes (EX. SCAR FOOT, ARTHROSCOPY RIGHT KNEE, NEUROSTEM STENT IN AND REMOVED) Social History Alcohol Use: Yes (briefly ) Tobacco Use: No Substance Use: No Allergies-Medications (Allergen,Severity, Reaction): Coded Allergies: Calcium Channel Blockers (Verified Allergy, Mild, Edema, 4/8/17) Enalapril (Verified Allergy, Mild, Cough, 07/26/16) Questran (Verified Allergy, Mild, NAUSEA, 07/26/16) HMG-CoA Reductase Inhibitors (Verified Allergy, Unknown, enlarged liver, ) Reported Meds & Prescriptions Reported Meds & Active Scripts Active Ondansetron Odt 4 Mg Tab 4 Mg SL Q6HR PRN Meclizine (Meclizine HCl) 25 Mg Tab 25 Mg PO Q6HR PRN Aspirin EC (Aspirin) 81 Mg Tabdr 81 Mg PO DAILY Reported Vitamin D3 (Cholecalciferol) 50,000 Unit Tab 50,000 Units PO Take 1 tablet (50,000 units) on Thursday and Thursday Morphine ER (Morphine Sulfate) 15 Mg Tab 15 Mg PO BID Pantoprazole (Pantoprazole Sodium) 40 Mg Tab 40 Mg PO DAILY Mobic (Meloxicam) 15 Mg Tab 15 Mg PO DAILY Take with food Seroquel (Quetiapine Fumarate) 25 Mg Tab 125 Mg PO HS Gabapentin 400 Mg Cap 800 Cap PO TID Breo Ellipta Inh (Fluticasone/Vilanterol) 200-25 Mcg/Act Inh 1 Puff INH DAILY Use daily at the same time. Latuda (Lurasidone) 40 Mg Tab 40 Mg PO DAILY Spironolactone 50 Mg Tab 100 Mg PO BID Ventolin Hfa 18 GM Inh (Albuterol Sulfate) 90 Mcg/Act Aer 2 Puff INH Q4H PRN Chewable Calcium (Calcium Carbonate) 500 Mg Chw 500 Mg PO BID Depakote ER (Divalproex Sodium) 500 Mg Khanh 2,500 Mg PO HS Humulin R U-500 (Concentrate) Inj (Insulin Regular (Human) Concentrate Inj) 10, 000 Unit/20 Ml Vial VIA INSULIN PUMP Levothyroxine (Levothyroxine Sodium) 125 Mcg Tab 250 Mcg PO DAILY Cytomel (Liothyronine Sodium) 5 Mcg Tab 10 Mcg PO BID Metoprolol Tartrate 100 Mg Tab 200 Mg PO BID Imitrex (Sumatriptan Succinate) 100 Mg Tab 100 Mg PO ONCE PRN If a satisfactory response has not been obtained at 2 hours, a second dose may be administered Review of Systems General / Constitutional: No: Fever Eyes: No: Visual changes HENT: No: Headaches Cardiovascular: No: Chest Pain or Discomfort Respiratory: No: Shortness of Breath Gastrointestinal: Positive: Nausea, Vomiting, No: Abdominal Pain Genitourinary: No: Dysuria Musculoskeletal: No: Pain Skin: No Rash Neurologic: Positive: Dizziness, No: Weakness Psychiatric: No: Depression Endocrine: No: Polydipsia Hematologic/Lymphatic: No: Easy Bruising Physical Exam Narrative GENERAL: Well-nourished, well-developed patient. SKIN: Focused skin assessment warm/dry. HEAD: Normocephalic. EYES: No scleral icterus. No injection or drainage. NECK: Supple, trachea midline. No JVD or lymphadenopathy. CARDIOVASCULAR: Regular rate and rhythm without murmurs, gallops, or rubs. RESPIRATORY: Breath sounds equal bilaterally. No accessory muscle use. GASTROINTESTINAL: Abdomen soft, non-tender, nondistended. MUSCULOSKELETAL: No cyanosis, or edema. BACK: Nontender without obvious deformity. No CVA tenderness. Data Data Last Documented VS Vital Signs Date Time Temp Pulse Resp B/P Pulse Ox O2 Delivery O2 Flow Rate FiO2 07/26/16 09:31 Room Air 07/26/16 09:31 72 18 137/79 98 07/26/16 09:21 98.7 Orders Ondansetron Odt (Zofran Odt) (07/26/16 10:15) MDM Medical Decision Making Medical Screen Exam Complete: Yes Emergency Medical Condition: Yes Differential Diagnosis BPV, unsteady gait, viral illness Narrative Course Assessment and plan discussed with patient at bedside. Zofran provided with improvement in nausea. Diagnosis Primary Impression: BPV (benign positional vertigo) Qualified Code: H81.13 - BPV (benign positional vertigo), bilateral Patient Instructions: General Instructions Additional Instructions: Encouraged rest and fluids. Meclizine and Zofran as needed. Encouraged to follow-up with his PCP to discuss vestibular rehabilitation and Micha's maneuvers. Med/Other Pt SpecificInfo: Prescription(s) given Scripts Ondansetron (Zofran)4 Mg Tab4 Mg PO Q6HR PRN (NAUSEA OR VOMITING) 20 Days Ref 0 Prov:Santos Campbell MD 07/26/16 Meclizine 25 Mg Tab25 Mg PO TID PRN (VERTIGO) #30 TAB Ref 0 Prov:Santos Campbell MD 07/26/16 Disposition: 01 DISCHARGE HOME Condition: Good Santos Campbell MD Jul 26, 2016 10:22
[2016-07-26 10:35] VITALS: BP 128/73
== END 2016-07-26 10:38 | disposition home or self-care (01) ==
LOC: PHED 09:14
DX: H81.13 Benign paroxysmal vertigo, bilateral (principal); E11.9 Type 2 diabetes mellitus without complications; E07.9 Disorder of thyroid, unspecified; I10 Essential (primary) hypertension; K21.9 Gastro-esophageal reflux disease without esophagitis; E78.00 Pure hypercholesterolemia, unspecified; F31.9 Bipolar disorder, unspecified; J45.909 Unspecified asthma, uncomplicated; Z79.4 Long term (current) use of insulin
CPT/HCPCS: 99283

== ENCOUNTER 2016-10-09 09:12 | Day surgery (SDC) | payer OTHER ==
[~2016-10-09] VITALS: Ht 188 cm; Wt 118.6 kg
[~2016-10-09 09:12] MED LIST changes: -ALBU0.63 NEB; -QUET1TAB7 PO; -SIMP50IN2 IM; +ZOFR4TAB PO; -ZOLP10TA3 PO
[2016-10-09] MEDS ORDERED: CYTO5TAB3 PO (09:36)
[2016-10-09] MEDS ORDERED: CHOL1CAP34 PO (09:36)
[2016-10-09 09:44] VITALS: BP 136/103; PULSE 88; RESP 20; O2SAT 96
[2016-10-09] MEDS ORDERED: LACTATED RINGER'S 1000 ML INJ 1,000 ML IV SCH ×2 (09:45→13:19)
[2016-10-09] MEDS ORDERED: DIAZEPAM 5 MG TAB PO SCH (09:45)
[2016-10-09 09:52] LABS: AUTOMATED NEUTROPHIL # 2.6 TH/MM3 (1.8-7.7); BASOPHIL % 0.5 % (0.0-2.0); EOSINOPHIL # 0.2 TH/MM3 (0-0.4); EOSINOPHIL % 3.2 % (0.0-4.0); HEMATOCRIT 40.5 % (39.0-51.0); HEMO FLAGS DIFF FINAL; LYMPH % 30.1 % (9.0-44.0); LYMPHOCYTE # 1.4 TH/MM3 (1.0-4.8); MEAN CELL VOLUME 83.5 FL (80.0-100.0); MEAN CORPUSCULAR HEMOGLOBIN 28.2 PG (27.0-34.0); MEAN CORPUSCULAR HGB CONC 33.8 % (32.0-36.0); MONO % 11.8 % (0.0-8.0); NEUT % 54.4 % (16.0-70.0); PLATELET COUNT 143 TH/MM3 (150-450); RED BLOOD COUNT 4.85 MIL/MM3 (4.50-5.90); WHITE BLOOD COUNT 4.8 TH/MM3 (4.0-11.0)
[2016-10-09 09:59] LABS: APTT (PATIENT) 28.2 SEC (24.3-30.1); PROTHROMBIN TIME - PATIENT 10.6 SEC (9.8-11.6)
[2016-10-09 10:16] LABS: POTASSIUM 3.7 MEQ/L (3.5-5.1)
[2016-10-09] MEDS ORDERED: LORazepam 2 MG/ML VIAL ONE (10:41)
[2016-10-09] MEDS ORDERED: MIDAZOLAM HCL 2 MG/2 ML VIAL ONE (10:51)
[2016-10-09 11:05] VITALS: BP_SYST 152; BP_SYST 92; BP_DIAS 92; PULSE 80; RESP 20; TEMP 98; O2SAT 94
[2016-10-09 11:20] VITALS: BP 152/82; PULSE 78; RESP 20; O2SAT 94
--- NOTE | 2016-10-09 11:34 | RADRPT ---
EXAM DATE/TIME: 10/09/2016 09:43 [facility] COMPARISON: No previous studies available for comparison. INDICATIONS : Patient is in need of a cervical myelogram due to radiculopathy. MEDICAL HISTORY : History of thyrpid cancer, peripheral neuropathy, sports asthma, hypoaldostorism, hypercholesteremia, fatty liver, bipolar disorder, severe anxiety, pneumonia, HTN, DM. SURGICAL HISTORY : History of lumbar fusion, spinal stimulator placement, cholecystectomy, left foot scar tissue removal , right knee arthroscopy, gastric sleeve, thyroidectomy, cardiac catheterization, vasectomy, neuroste m placement and removal. ENCOUNTER: Initial ACUITY: 4-6 months PAIN SCORE: 0/10 LUMBAR PUNCTURE TIME: 1052 hours FLUORO TIME: 0.6 minutes IMAGE SERIES: 0 CONTRAST: 12 cc Omnipaque (iohexol) 300 ACCESS LEVEL: L3-4 30 minutes MEDICATION(S): 100 mcg fentanyl (Sublimaze) IV PROCEDURE : 1. Fluoroscopic guided lumbar puncture. 2. Instillation of intrathecal contrast. 3. Cervical myelogram. The risks, benefits and alternatives to the procedure were explained and verbal and written consent w as obtained. The site was prepped in sterile fashion. Full sterile technique was used, including ca p, mask, sterile gloves and gown and a large sterile sheet. Hand hygiene and 2% chlorhexidine and/or betadine/alcohol prep was utilized per protocol for cutaneous antisepsis. The skin and subcutaneous tissues were infiltrated with local anesthetic solution. With fluoroscopic guidance the lumbar thecal sac was punctured at level above and a diagnostic quanti ty of contrast is present in the subarachnoid space. Under fluoroscopic guidance contrast was moved t o the cervical region. The patient tolerated procedure well and there were no complications. CT scan is to be performed for further evaluation. CONCLUSION: Uncomplicated cervical myelogram as above. CT scan is to be performed for further evaluation. Juan David Estrada MD on October 09, 2016 at 11:31 Board Certified Radiologist. This report was verified electronically.
[2016-10-09 13:00] VITALS: BP 149/88; PULSE 81; RESP 20; O2SAT 98
--- NOTE | 2016-10-09 13:20 | PD.RAD ---
Post Procedure Progress Note Pre Procedure Diagnosis: (1) Lumbar radicular syndrome (2) Lumbar radiculopathy, acute (3) S/P lumbar laminectomy (4) S/P lumbar fusion Post Procedure Diagnosis: (1) Lumbar spondylosis (2) Lumbar radiculopathy, acute (3) S/P lumbar laminectomy (4) S/P lumbar fusion Procedure Date: Oct 09, 2016 Supervising Radiologist: Juan David Estrada Proceduralist/Assist: Tessie Noble, RT(R), Jayde Moore RT(R)() Anesthesia: Local Plan of Activity Patient to Unit: ROPU Patient Condition: Good See PACS Report for procedural detail/treatment Juan David Estrada MD Oct 09, 2016 13:20
[2016-10-09] MEDS ORDERED: ACETAMINOPHEN 325 MG TAB PO PRN (14:00)
[2016-10-09] MEDS ORDERED: oxyCODONE/ACETAMINOPHEN 5 MG/325 MG TAB PO PRN (14:00)
[2016-10-09] MEDS ORDERED: ONDANSETRON HCL 4 MG/2 ML VIAL IV PRN (14:00)
--- NOTE | 2016-10-09 14:00 | RADRPT ---
EXAM DATE/TIME: 10/09/2016 11:31 [facility] COMPARISON: CT PULMONARY ANGIOGRAM, January 17, 2016, 17:57. INDICATIONS : Pain down bilateral extremities posteriorly to thumbs. RADIATION DOSE: 28.17 CTDIvol (mGy) MEDICAL HISTORY : Diabetes mellitus type 2. SURGICAL HISTORY : None. ENCOUNTER: Initial ACUITY: 1 day PAIN SCALE: 9/10 LOCATION: Bilateral neck TECHNIQUE: Volumetric scanning of the cervical spine was performed. Multiplanar reconstructions in the sagittal, coronal and oblique axial planes were performed. Using automated exposure control and adjustment o f the mA and/or kV according to patient size, radiation dose was kept as low as reasonably achievable to obtain optimal diagnostic quality images. FINDINGS: Vertebral body heights are intact. No evidence for acute bony fracture or focal bony destruction. The re is straightening of the upper cervical spine. Sagittal alignment is otherwise maintained. There is a normal C1-2 relationship. There is intact. Visualized portions of the posterior fossa demonstrate no significant abnormality. Visualized paraspinal soft tissues are grossly unremarkable. Visualized l jaylin apices demonstrate patchy ground glass opacities primarily in the right apex with multiple 4-7 mm nodules similar to 2016 CT exam. Patient has a history of thyroid CA as well as 3 cm cavitary mass i n the right upper lobe noted on more remote imaging with reported staph infection per patient. C2-C3: The bony spinal canal is normal in size. No evidence of disc bulge or herniation. Mild left facet h ypertrophy with resultant mild left neural foraminal narrowing. C3-C4: Mild diffuse disc bulge and posterior osteophyte complex. No significant central canal narrowing. Mil d uncovertebral and facet hypertrophy. Mild left neural foraminal narrowing. C4-C5: Prominent anterior osteophytes. No significant disc bulge or herniation. Patent bilateral neural fora keesha. C5-C6: Prominent anterior osteophytes. Diffuse disc space narrowing with mild posterior disc osteophyte comp ramiro. Mild uncovertebral arthropathy. Central canal measures 11 mm. C6-C7: Mild diffuse disc bulge with osteophyte formation. Central canal measures 12 mm. Moderate left neural foraminal stenosis. C7-T1: Mild diffuse disc space narrowing. No significant disc bulge or posterior osteophytes. Central canal is patent. Neural foramina are patent. CONCLUSION: 1. Mild multilevel degenerative spondylosis most prominently at C4-C7, as above. No significant centr al canal stenosis with mild to moderate variable predominately left-sided neural foraminal stenosis. 2. Incidental note of multiple 4-7 mm nodules in the right lung apex similar to 2016 CT exam. Patien t has a history of thyroid CA as well as 3 cm cavitary mass in the right upper lobe noted on more rem ote imaging with reported staph infection per patient. Differential considerations include sequela of prior infection versus chronic focal airspace disease versus metastatic disease. Consider formal CT examination of the chest for better evaluation. Juan David Estrada MD on October 09, 2016 at 13:20 Board Certified Radiologist. This report was verified electronically.
[2016-10-09 14:45] VITALS: BP 143/77; PULSE 90; RESP 18; O2SAT 97
[2016-10-09 15:21] VITALS: RESP 18
== END 2016-10-09 15:54 | disposition home or self-care (01) ==
LOC: HROP 09:12 → HRIP 09:17 → HROP 15:54
PROVIDERS: ATTEND Neurological Surgery
DX: M47.816 Spondylosis without myelopathy or radiculopathy, lumbar region (principal); M54.16 Radiculopathy, lumbar region; E11.8 Type 2 diabetes mellitus with unspecified complications; G43.909 Migraine, unspecified, not intractable, without status migrainosus; I10 Essential (primary) hypertension; G47.30 Sleep apnea, unspecified; C73 Malignant neoplasm of thyroid gland; R42 Dizziness and giddiness; Z98.1 Arthrodesis status; Z01.818 Encounter for other preprocedural examination
CPT/HCPCS: 62302; 72125; 80048; 85025; 85610; 85730; 99152; 99153; J2060; J2250; J2405; J3010; J7120

== ENCOUNTER 2016-10-15 13:48 | Observation (INO) | payer OTHER ==
[~2016-10-15] VITALS: Ht 188 cm; Wt 120.0 kg
[~2016-10-15 13:48] MED LIST changes: +CHOL1CAP34 PO; -CHOL1TAB16 PO; -CYTO5TAB PO; +CYTO5TAB3 PO; -MECL-62 PO; -ONDA4TAB7 SL; -ZOFR4TAB PO
[2016-10-15 13:50] VITALS: BP 130/78; PULSE 97; RESP 24; TEMP 103; O2SAT 98
--- NOTE | 2016-10-15 13:53 | PD ---
Physical Exam Date Seen by Provider: Oct 15, 2016 Time Seen by Provider: 13:51 Narrative 50 yo male here for evaluation of body schaking since this am. This happened today. BS was 103. Was conscious. States that he feels very weak, especially lower extremities. Urgent care sent him here. No chest pain or SOB. No trauma. Vitals are stable in triage with exception of fever of 103. Awaiting bed placement. Data Data Last Documented VS Vital Signs Date Time Temp Pulse Resp B/P Pulse Ox O2 Delivery O2 Flow Rate FiO2 10/15/16 13:50 103.0 97 24 130/78 98 Room Air [facility] Medical Record Reviewed: Yes Supervised Visit with PEDRO PABLO: No Jose Lebron Oct 15, 2016 13:53
[2016-10-15 14:05] VITALS: BP 131/66; PULSE 88; RESP 20; O2SAT 98
[2016-10-15] MEDS ORDERED: SODIUM CHLOR 0.9% 1000 ML INJ 1,000 ML IV ONE (14:30)
[2016-10-15] MEDS ORDERED: ACETAMINOPHEN 325 MG TAB PO ONE (14:30)
[2016-10-15 14:47] LABS: AUTOMATED NEUTROPHIL # 8.3 TH/MM3 (1.8-7.7); BASOPHIL % 0.5 % (0.0-2.0); EOSINOPHIL # 0.1 TH/MM3 (0-0.4); EOSINOPHIL % 0.9 % (0.0-4.0); HEMATOCRIT 40.1 % (39.0-51.0); HEMO FLAGS DIFF FINAL; LYMPH % 7.2 % (9.0-44.0); LYMPHOCYTE # 0.7 TH/MM3 (1.0-4.8); MEAN CELL VOLUME 82.9 FL (80.0-100.0); MEAN CORPUSCULAR HEMOGLOBIN 28.9 PG (27.0-34.0); MEAN CORPUSCULAR HGB CONC 34.8 % (32.0-36.0); MONO % 7.2 % (0.0-8.0); NEUT % 84.2 % (16.0-70.0); PLATELET COUNT 126 TH/MM3 (150-450); RED BLOOD COUNT 4.84 MIL/MM3 (4.50-5.90); RED CELL DISTRIBUTION WIDTH 18.1 % (11.6-17.2); WHITE BLOOD COUNT 9.8 TH/MM3 (4.0-11.0)
--- NOTE | 2016-10-15 14:53 | PD ---
HPI Chief Complaint: Fever Time Seen by Provider: 14:01 Travel History International Travel<30 days: No Contact w/Intl Traveler<30days: No Traveled to known affect area: No History of Present Illness HPI Patient is a 50-year-old male presents emergency department for evaluation of rigors and weakness. Patient states he has a history of medication-induced Parkinson's disease, he states when he went to bed last night he was at his baseline but when he woke up this morning he was feeling very weak and started feeling very jittery, he went to the [facility] office where he was found to be in rigors and was sent to the emergency department further evaluation. On arrival here the patient is febrile, he denies any pain denies any cough or congestion denies any nausea vomiting diarrhea or belly pain. According to the documentation from [facility] the patient was having some diarrhea earlier in the day. He had not taken his temperature at home. He is coming by his mother who states he patient is just been a little off and she cannot clarify further. Denies any focalized weakness. PFSH Past Medical History Arthritis: Yes Asthma: Yes Blood Disorders: No Bipolar Disorder: Yes Anxiety: Yes (BIPOLAR WITH PANIC ATTACKS AND SEVERE ANXIETY) Depression: Yes Heart Rhythm Problems: No Cancer: Yes (THYROID) Cardiac Catheterization: Yes (2006) Cardiovascular Problems: Yes High Cholesterol: Yes Chemotherapy: No Chest Pain: No Congestive Heart Failure: No COPD: No Cerebrovascular Accident: No Diabetes: Yes Patient Takes Glucophage: No Diminished Hearing: No Endocrine: Yes (HYPOALDOSTORISM,) Gastrointestinal Disorders: Yes (GERD) GERD: Yes Genitourinary: No Headaches: Yes Hepatitis: No Hiatal Hernia: No Hypertension: Yes (SPORTS ASTHMA (RESOLVED)) Immune Disorder: No Implanted Vascular Access Dvce: Yes Musculoskeletal: Yes (LUMBAR FUSION/ NERVE STIM.,RHEUMATOID ARTHRITIS) Neurologic: Yes (MIGRAINES) Psychiatric: Yes (CLAUSTROPHOBIC, BIPOLAR) Reproductive: No Respiratory: Yes (ASTHMA) Migraines: Yes Myocardial Infarction: No Pneumonia: Yes Radiation Therapy: Yes Renal Failure: No Seizures: No Sleep Apnea: Yes (USES CPAP) Thyroid Disease: Yes (CANCER) Past Surgical History Abdominal Surgery: Yes (LAP CHOLECYSTECTOMY) AICD: No Body Medical Devices: LOWER BACK TITANIUM SCREWS AND RODS, SPINAL CORD STIMULATOR Cardiac Surgery: No Cholecystectomy: Yes Ear Surgery: No Endocrine Surgery: Yes (THYROIDECTOMY) Eye Surgery: No Genitourinary Surgery: Yes (1999 VASECTOMY) Gynecologic Surgery: Yes Insulin Pump: Yes Joint Replacement: No Neurologic Surgery: Yes (LUMBAR FUSION, SPINAL STIMULATOR IMPL.) Oral Surgery: No Pacemaker: No Thoracic Surgery: No Other Surgery: Yes (EX. SCAR FOOT, ARTHROSCOPY RIGHT KNEE, NEUROSTEM STENT IN AND REMOVED) Social History Alcohol Use: No Tobacco Use: No Substance Use: No Allergies-Medications (Allergen,Severity, Reaction): Coded Allergies: Calcium Channel Blockers (Verified Allergy, Mild, Edema, 10/15/16) Enalapril (Verified Allergy, Mild, Cough, 10/15/16) Questran (Verified Allergy, Mild, NAUSEA, 10/15/16) HMG-CoA Reductase Inhibitors (Verified Allergy, Unknown, enlarged liver, ) Reported Meds & Prescriptions Reported Meds & Active Scripts Active Aspirin EC (Aspirin) 81 Mg Tabdr 81 Mg PO DAILY Reported Cytomel (Liothyronine Sodium) 5 Mcg Tablet 10 Mcg PO BID Vitamin D3 (Cholecalciferol) 50,000 Unit Cap 50,000 Units PO 2XWEEK Morphine ER (Morphine Sulfate) 15 Mg Tab 15 Mg PO BID Pantoprazole (Pantoprazole Sodium) 40 Mg Tab 40 Mg PO DAILY Mobic (Meloxicam) 15 Mg Tab 15 Mg PO DAILY Take with food Seroquel (Quetiapine Fumarate) 25 Mg Tab 125 Mg PO HS Gabapentin 400 Mg Cap 800 Cap PO TID Breo Ellipta Inh (Fluticasone/Vilanterol) 200-25 Mcg/Act Inh 1 Puff INH DAILY Use daily at the same time. Latuda (Lurasidone) 40 Mg Tab 40 Mg PO DAILY Spironolactone 50 Mg Tab 100 Mg PO BID Ventolin Hfa 18 GM Inh (Albuterol Sulfate) 90 Mcg/Act Aer 2 Puff INH Q4H PRN Chewable Calcium (Calcium Carbonate) 500 Mg Chw 500 Mg PO BID Depakote ER (Divalproex Sodium) 500 Mg Khanh 2,500 Mg PO HS Humulin R U-500 (Concentrate) Inj (Insulin Regular (Human) Concentrate Inj) 10, 000 Unit/20 Ml Vial VIA INSULIN PUMP Levothyroxine (Levothyroxine Sodium) 125 Mcg Tab 250 Mcg PO DAILY Metoprolol Tartrate 100 Mg Tab 200 Mg PO BID Imitrex (Sumatriptan Succinate) 100 Mg Tab 100 Mg PO ONCE PRN If a satisfactory response has not been obtained at 2 hours, a second dose may be administered Review of Systems Except as stated in HPI: all other systems reviewed are Neg Physical Exam Narrative GENERAL: Well-developed well-nourished, overweight but in no obvious distress. SKIN: Focused skin assessment warm/dry. HEAD: Atraumatic. Normocephalic. EYES: Pupils equal and round. No scleral icterus. No injection or drainage. ENT: No nasal bleeding or discharge. Mucous membranes pink and moist. NECK: Trachea midline. No JVD. CARDIOVASCULAR: Regular rate and rhythm. No murmur appreciated. RESPIRATORY: No accessory muscle use. Clear to auscultation. Breath sounds equal bilaterally. GASTROINTESTINAL: Abdomen soft, non-tender, nondistended. Hepatic and splenic margins not palpable. MUSCULOSKELETAL: No obvious deformities. No clubbing. No cyanosis. No edema. NEUROLOGICAL: Awake and alert. No obvious cranial nerve deficits. Motor grossly within normal limits. Normal speech. PSYCHIATRIC: Appropriate mood and affect; insight and judgment normal. Data Data Last Documented VS Vital Signs Date Time Temp Pulse Resp B/P Pulse Ox O2 Delivery O2 Flow Rate FiO2 10/15/16 17:47 98.5 87 20 131/85 95 10/15/16 15:57 Room Air Orders Electrocardiogram (10/15/16 14:19) Complete Blood Count With Diff (10/15/16 14:19) Comprehensive Metabolic Panel (10/15/16 14:19) Prothrombin Time / Inr (Pt) (10/15/16 14:19) Act Partial Throm Time (Ptt) (10/15/16 14:19) Lactic Acid Sepsis Protocol (10/15/16 14:19) Magnesium (Mg) (10/15/16 14:19) Phosphorus (Po4) (10/15/16 14:19) Lipase (10/15/16 14:19) Ckmb (Isoenzyme) Profile (10/15/16 14:19) Troponin I (10/15/16 14:19) Urinalysis - C+S If Indicated (10/15/16 14:19) Chest, Pa & Lat (10/15/16 14:19) Ecg Monitoring (10/15/16 14:19) Iv Access Insert/Monitor (10/15/16 14:19) Oximetry (10/15/16 14:19) Oxygen Administration (10/15/16 14:19) Ct Abd/Pel W Iv Contrast(Rout) (10/15/16 14:19) Ct Brain W/O Iv Contrast(Rout) (10/15/16 ) Sodium Chlor 0.9% 1000 Ml Inj (Ns 1000 M (10/15/16 14:30) Acetaminophen (Tylenol) (10/15/16 14:30) CKMB (10/15/16 14:28) CKMB% (10/15/16 14:28) Thyroid Stimulating Hormone (10/15/16 16:21) Iohexol 350 Inj (Omnipaque 350 Inj) (10/15/16 16:25) Blood Culture (10/15/16 17:47) Procalcitonin (10/15/16 17:47) Influenzae A/B Antigen (10/15/16 17:47) Resp Panel (Adult/Ped) (10/15/16 17:50) Ceftriaxone Inj (Rocephin Inj) (10/15/16 18:00) Vancomycin Inj (Vancomycin Inj) (10/15/16 18:00) Admit Order (Ed Use Only) (10/15/16 ) Labs Laboratory Tests Test 10/15/16 10/15/16 10/15/16 14:28 17:02 17:37 White Blood Count 9.8 TH/MM3 Red Blood Count 4.84 MIL/MM3 Hemoglobin 14.0 GM/DL Hematocrit 40.1 % Mean Corpuscular Volume 82.9 FL Mean Corpuscular Hemoglobin 28.9 PG Mean Corpuscular Hemoglobin 34.8 % Concent Red Cell Distribution Width 18.1 % Platelet Count 126 TH/MM3 Mean Platelet Volume 8.8 FL Neutrophils (%) (Auto) 84.2 % Lymphocytes (%) (Auto) 7.2 % Monocytes (%) (Auto) 7.2 % Eosinophils (%) (Auto) 0.9 % Basophils (%) (Auto) 0.5 % Neutrophils # (Auto) 8.3 TH/MM3 Lymphocytes # (Auto) 0.7 TH/MM3 Monocytes # (Auto) 0.7 TH/MM3 Eosinophils # (Auto) 0.1 TH/MM3 Basophils # (Auto) 0.0 TH/MM3 CBC Comment DIFF FINAL Differential Comment Prothrombin Time 11.1 SEC Prothromb Time International 1.0 RATIO Ratio Activated Partial 28.2 SEC Thromboplast Time Sodium Level 138 MEQ/L Potassium Level 4.9 MEQ/L Chloride Level 108 MEQ/L Carbon Dioxide Level 21.0 MEQ/L Anion Gap 9 MEQ/L Blood Urea Nitrogen 14 MG/DL Creatinine 1.26 MG/DL Estimat Glomerular Filtration 61 ML/MIN Rate Random Glucose 123 MG/DL Lactic Acid Level 2.2 mmol/L 1.8 mmol/L Calcium Level 9.3 MG/DL Phosphorus Level 1.8 MG/DL Magnesium Level 1.5 MG/DL Total Bilirubin 0.7 MG/DL Aspartate Amino Transf 81 U/L (AST/SGOT) Alanine Aminotransferase 58 U/L (ALT/SGPT) Alkaline Phosphatase 89 U/L Total Creatine Kinase 315 U/L Creatine Kinase MB 3.3 NG/ML Creatine Kinase MB % 1.0 % Troponin I LESS THAN 0.02 NG/ML Total Protein 7.0 GM/DL Albumin 3.0 GM/DL Lipase 111 U/L Thyroid Stimulating Hormone 0.483 uIU/ML 3rd Gen Urine Color YELLOW Urine Turbidity CLEAR Urine pH 6.5 Urine Specific [place] 1.049 Urine Protein TRACE mg/dL Urine Glucose (UA) NEG mg/dL Urine Ketones NEG mg/dL Urine Occult Blood NEG Urine Nitrite NEG Urine Bilirubin NEG Urine Urobilinogen LESS THAN 2.0 MG/DL Urine Leukocyte Esterase NEG Urine WBC LESS THAN 1 /hpf Urine Squamous Epithelial <1 /hpf Cells Microscopic Urinalysis Comment CATH-CULT NOT IND MDM Medical Decision Making Medical Screen Exam Complete: Yes Emergency Medical Condition: Yes Differential Diagnosis Fever of unknown origin, fever unknown source, sepsis, pneumonia, urinary tract infection. Narrative Course Patient was roomed in the emergency Department, hemodynamically stable he does have a fever of 103 out in triage and I have retaken it myself as 101. Patient is no source of his fever evident by physical exam, chest x-ray negative, and abdominal X CT was performed given his history of diarrhea and is likewise negative. His basic labs are reassuring. A CT of his head was performed based on his altered mental status per mother is also negative. Last 24 hours Impressions Chest X-Ray 10/15/16 1419 Signed Impressions: Service Date/Time: Saturday, October 15, 2016 14:44 - CONCLUSION: No acute disease. Glenn Morgan MD FACR Abdomen/Pelvis CT 10/15/16 1419 Signed Impressions: Service Date/Time: Saturday, October 15, 2016 16:13 - CONCLUSION: Hepatic steatosis. Splenomegaly. Nonobstructing right renal calculus. No acute CT findings. Wilberto Garcia MD Head CT 10/15/16 0000 Signed Impressions: Service Date/Time: Saturday, October 15, 2016 16:09 - CONCLUSION: 1. Old right cerebellar infarct. 2. Mild cerebral atrophy and minimal periventricular white matter small vessel ischemic changes bilaterally. 3. No acute infarct, acute hemorrhage, mass effect or extra-axial fluid collections. Francis Ricardo MD Patient was then discussed with Dr. Velasco the patient's primary care physician and after an extensive conversation we agreed that given the patient' s history caution needs to be taken and the patient would do well to be observed. We have also ordered a pro-calcitonin, RSV, flu panel. Patient will be started on vancomycin and Rocephin and central nervous penetration however the patient has no nuchal rigidity and do not think that a lumbar puncture is indicated currently. Diagnosis Primary Impression: SIRS (systemic inflammatory response syndrome) Additional Impression: Fever Admitting Information Admitting Physician Requests: Observation Condition: Stable Francis Boykin MD Oct 15, 2016 14:53
[2016-10-15 14:56] LABS: APTT (PATIENT) 28.2 SEC (24.3-30.1); PROTHROMBIN TIME - PATIENT 11.1 SEC (9.8-11.6)
--- NOTE | 2016-10-15 15:00 | RADRPT ---
EXAM DATE/TIME: 10/15/2016 14:44 [facility] COMPARISON: CHEST PA & LAT, January 25, 2016, 9:30. INDICATIONS : Shortness of breath and weakness for 2 days. MEDICAL HISTORY : Hypertension. Hypercholesterolemia. Rheumatoid arthritis. Hyperlipidemia. GERD. Hypoaldostorism. Steatohepatitis. Thyroid caner. SURGICAL HISTORY : Cholecystectomy. Fusion, lumbar. Spinal stimulator. Cardiac cath. Gastric sleeve. Thyroidectomy. ENCOUNTER: Initial ACUITY: 2 days PAIN SCORE: 0/10 LOCATION: Bilateral chest FINDINGS: PA and lateral views of the chest demonstrate the lungs to be symmetrically aerated without evidence of mass, infiltrate or effusion. The cardiomediastinal contours are unremarkable. Spinal stimulator is noted. Osseous structures are intact. CONCLUSION: No acute disease. Glenn Morgan MD FACR on October 15, 2016 at 14:57 Board Certified Radiologist. This report was verified electronically.
[2016-10-15 15:24] LABS: ALKALINE PHOSPHATASE 89 U/L (45-117); ALT (GPT) 58 U/L (12-78); ANION GAP 9 MEQ/L (5-15); AST (GOT) 81 U/L (15-37); BLOOD UREA NITROGEN 14 MG/DL (7-18); CHLORIDE 108 MEQ/L (98-107); CREATINE KINASE 315 U/L (39-308); GLOMERULAR FILTRATION RATE 61 ML/MIN (>89); MAGNESIUM 1.5 MG/DL (1.5-2.5); POTASSIUM 4.9 MEQ/L (3.5-5.1); SODIUM (NA) 138 MEQ/L (136-145); TOTAL BILIRUBIN ADULT 0.7 MG/DL (0.2-1.0)
[2016-10-15 15:36] LABS: CKMB 3.3 NG/ML (0.5-3.6)
[2016-10-15] MEDS ORDERED: IOHEXOL 350 MG/ML 10 ML VIAL (for RAD DIAG) IV ONE (16:25)
--- NOTE | 2016-10-15 16:30 | RADRPT ---
EXAM DATE/TIME: 10/15/2016 16:09 [facility] COMPARISON: MRI BRAIN W/O CONTRAST, July 10, 2016, 19:57. CT BRAIN W/O CONTRAST, July 10, 2016, 10:19. INDICATIONS : Generalized weakness RADIATION DOSE: 56.17 CTDIvol (mGy) MEDICAL HISTORY : Rheumatoid arthritis. Gastroesophageal reflux disease. Hyperaldosterism. Thyroid cancer. Bipolar. SURGICAL HISTORY : Cholecystectomy. Gastric sleeve. Vasectomy. Spinal stimulator ENCOUNTER: Initial ACUITY: 1 day PAIN SCALE: 0/10 LOCATION: cranial TECHNIQUE: Multiple contiguous axial images were obtained of the head. Using automated exposure control and adj ustment of the mA and/or kV according to patient size, radiation dose was kept as low as reasonably a chievable to obtain optimal diagnostic quality images. DICOM format image data is available electro nically for review and comparison. FINDINGS: CEREBRUM: No evidence of midline shift, mass lesion, hemorrhage or acute infarction. No extra-axial fluid doyle ections are seen. There is an old right cerebellar infarct. Mild cerebral atrophy and minimal periven tricular white matter small vessel ischemic changes are noted. POSTERIOR FOSSA: The cerebellum and brainstem are intact. The 4th ventricle is midline. The cerebellopontine angle i s unremarkable. EXTRACRANIAL: The visualized portion of the orbits is intact. SKULL: The calvaria is intact. No evidence of skull fracture. CONCLUSION: 1. Old right cerebellar infarct. 2. Mild cerebral atrophy and minimal periventricular white matter small vessel ischemic changes bilat erally. 3. No acute infarct, acute hemorrhage, mass effect or extra-axial fluid collections. Francis Ricardo MD on October 15, 2016 at 16:26 Board Certified Radiologist. This report was verified electronically.
[2016-10-15 16:35] VITALS: BP 120/71; PULSE 91; RESP 18; TEMP 99.8; O2SAT 94
[2016-10-15 16:38] LABS: LACTIC ACID GHOST NOT REPORTABLE
--- NOTE | 2016-10-15 17:07 | RADRPT ---
EXAM DATE/TIME: 10/15/2016 16:13 [facility] COMPARISON: No previous studies available for comparison. INDICATIONS : Generalized weakness and fever IV CONTRAST: 100 cc Omnipaque 350 (iohexol) IV ORAL CONTRAST: No oral contrast ingested. RADIATION DOSE: 16.88 CTDIvol (mGy) MEDICAL HISTORY : Rheumatoid arthritis. Gastroesophageal reflux disease. Bipolar. Thyroid cancer. Hyperaldosterism. SURGICAL HISTORY : Cholecystectomy. Gastric sleeve. Vasectomy. Spinal stimulator. ENCOUNTER: Initial ACUITY: 1 day PAIN SCALE: 2/10 LOCATION: Diffuse abdomen TECHNIQUE: Volumetric scanning of the abdomen and pelvis was performed. Using automated exposure control and ad justment of the mA and/or kV according to patient size, radiation dose was kept as low as reasonably achievable to obtain optimal diagnostic quality images. DICOM format image data is available electro nically for review and comparison. FINDINGS: LOWER LUNGS: There are scattered small nodular densities in the right lung base. LIVER: Diffusely diminished density consistent with steatosis. No focal mass or biliary ductal dilatation. G allbladder surgically absent. SPLEEN: Enlarged without focal lesion. PANCREAS: Within normal limits. KIDNEYS: Tiny nonobstructing stone in the upper pole collecting system of the right kidney. No suspicious mass or hydronephrosis. ADRENAL GLANDS: Within normal limits. VASCULAR: There is no aortic aneurysm. BOWEL/MESENTERY: The stomach, small bowel, and colon demonstrate no acute abnormality. There is no free intraperitone al air or fluid. ABDOMINAL WALL: Within normal limits. RETROPERITONEUM: There is no lymphadenopathy. BLADDER: No wall thickening or mass. REPRODUCTIVE: Within normal limits. INGUINAL: There is no lymphadenopathy or hernia. MUSCULOSKELETAL: Previous lumbar hardware fusion. Stimulator apparatus with control pack over the left iliac crest. CONCLUSION: Hepatic steatosis. Splenomegaly. Nonobstructing right renal calculus. No acute CT findings. Wilberto Garcia MD on October 15, 2016 at 17:01 Board Certified Radiologist. This report was verified electronically.
[2016-10-15 17:47] VITALS: BP 131/85; PULSE 87; RESP 20; TEMP 98.5; O2SAT 95
[2016-10-15 17:57] LABS: BLOOD, URINE NEG (NEG); GLUCOSE,URINE NEG (NEG); KETONE, URINE NEG (NEG); NITRITE,URINE NEG (NEG); PH, URINE 6.5 (5.0-8.5); SQUAMOUS EPITHELIAL CELL URINE <1 /hpf (0-5); URINE COLOR YELLOW (YELLW/STRAW)
[2016-10-15 18:00] LABS: COMMENT (UR) CATH-CULT NOT IND; CULTURE IF INDICATED CATH CULTURE NOT IND
[2016-10-15] MEDS ORDERED: VANCOMYCIN INJ 1,000 MG in SODIUM CHLOR 0.9% 250 ML INJ 250 ML IV ONE (18:00)
[2016-10-15] MEDS ORDERED: cefTRIAXone INJ 2,000 MG in SODIUM CHLORIDE 0.9% INJ 100 ML IV ONE (18:00)
--- NOTE | 2016-10-15 18:50 | HHI.HP ---
HPI Service CP Hospitalists Primary Care Physician No Primary Care Physician Admission Diagnosis Fever of unknown etiology. Chief Complaint: Shakes, chills, inability to ambulate independently Travel History International Travel<30 Days: No Contact w/Intl Traveler <30 Da: No Traveled to Known Affected Are: No Sepsis Criteria SIRS Criteria (2 or more): Temp > 100.9 or < 96.8, Heart rate over 90 Criteria Outcome: Meets SIRS criteria History of Present Illness 50-year-old white male well-known to me with history of diabetic nephropathy, RA , bipolar disorder and drug induced Parkinson's presents to the ER for rigor ongoing most of today. He called my office earlier today around noon and was directed to outpatient evaluation where he was seen in [facility] extended hours clinic. I spoke with Dr. Hong about the patient after she evaluated him and she noted that he was quite weak and having trouble standing. He was tremulous at times but at other times seemed to not have much of a tremor at all. At time he was afebrile. Given that he nearly fell twice in her office, Dr. Hong appropriately directed him to the ER for further evaluation and treatment. In the ER it was noted that he had a temperature 103 however his white count is normal and his lactic acid is only minimally elevated. His vitals are otherwise stable. I spoke with pt's mother who actually woke him up this AM and noted the tremors. She reports that pt had 5-6 episodes of diarrhea yesterday. He was a bit confused this AM, but feeling better after IVF. Workup thus far has failed to reveal a source of the fever. He is on immunosuppressant re: RA. 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 No other new meds. Review of Systems Constitutional: COMPLAINS OF: Fever, Chills Endocrine: COMPLAINS OF: Heat/cold intolerance, Polydipsia Eyes: COMPLAINS OF: Blurred vision Ears, nose, mouth, throat: COMPLAINS OF: Vertigo, DENIES: Tinnitus, Hearing loss, Nasal discharge, Oral lesions, Throat pain, Hoarseness, Ear Pain, Running Nose, Epistaxis, Sinus Pain, Toothache, Odynophagia Respiratory: DENIES: Apneas, Cough, Snoring, Wheezing, Hemoptysis, Sputum production, Shortness of breath Cardiovascular: DENIES: Chest pain, Palpitations, Syncope, Dyspnea on Exertion , PND, Lower Extremity Edema, Orthopnea, Claudication Gastrointestinal: COMPLAINS OF: Abdominal pain, Diarrhea, GERD, Nausea, Reflux , DENIES: Black stools, Bloody stools, BRB per rectum, Constipation, Vomiting, Difficulty Swallowing, Anorexia, See HPI Musculoskeletal: COMPLAINS OF: Joint pain Integumentary: DENIES: Abnormal pigmentation, Nail changes, Pruritus, Rash Immunologic/allergic: DENIES: Eczema, Urticaria Neurologic: COMPLAINS OF: Abnormal gait, Tremor, Poor Balance Psychiatric: COMPLAINS OF: Anxiety, Confusion, History of Bipolar, DENIES: Mood changes, Depression, Hallucinations, Agitation, Suicidal Ideation, Homicidal Ideation, Delusions, History of Schizophrenia Past Family Social History Past Medical History Generalized anxiety disorder Conn's syndrome Bipolar disorder type I, mixed History of thyroid cancer Chronic kidney disease stage I Obesity Diabetes with neuropathy and nephropathy Essential hypertriglyceridemia Lumbar facet syndrome with chronic pain Esophageal reflux disorder Hypertension Hypothyroidism Metabolic syndrome Migraine headaches Obesity Panic disorder without turgor phobia Postlaminectomy syndrome Rheumatoid arthritis 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 asthmatic bronchitis Past Surgical History Cardiac catheter reportedly negative Cholecystectomy Circumcision due to phimosis Lumbar laminectomy Gastric bypass surgery for morbid obesity Multiple lumbar paravertebral blocks Rhizotomy Spinal neurostimulator placement Vasectomy Total thyroidectomy L4 to S1 fusion Reported Medications Aspirin EC (Aspirin) 81 Mg Tabdr 81 Mg PO DAILY Cytomel (Liothyronine Sodium) 5 Mcg Tablet 10 Mcg PO BID Vitamin D3 (Cholecalciferol) 50,000 Unit Cap 50,000 Units PO 2XWEEK Morphine ER (Morphine Sulfate) 15 Mg Tab 15 Mg PO BID Pantoprazole (Pantoprazole Sodium) 40 Mg Tab 40 Mg PO DAILY Mobic (Meloxicam) 15 Mg Tab 15 Mg PO DAILY Take with food Seroquel (Quetiapine Fumarate) 25 Mg Tab 125 Mg PO HS Gabapentin 400 Mg Cap 800 Cap PO TID Breo Ellipta Inh (Fluticasone/Vilanterol) 200-25 Mcg/Act Inh 1 Puff INH DAILY Use daily at the same time. Latuda (Lurasidone) 40 Mg Tab 40 Mg PO DAILY Spironolactone 50 Mg Tab 100 Mg PO BID Ventolin Hfa 18 GM Inh (Albuterol Sulfate) 90 Mcg/Act Aer 2 Puff INH Q4H PRN Chewable Calcium (Calcium Carbonate) 500 Mg Chw 500 Mg PO BID Depakote ER (Divalproex Sodium) 500 Mg Khanh 2,500 Mg PO HS Humulin R U-500 (Concentrate) Inj (Insulin Regular (Human) Concentrate Inj) 10, 000 Unit/20 Ml Vial VIA INSULIN PUMP Levothyroxine (Levothyroxine Sodium) 125 Mcg Tab 250 Mcg PO DAILY Metoprolol Tartrate 100 Mg Tab 200 Mg PO BID Imitrex (Sumatriptan Succinate) 100 Mg Tab 100 Mg PO ONCE PRN If a satisfactory response has not been obtained at 2 hours, a second dose may be administered Simponi 50mg sq monthly Acetazolamide ? dose Allergies: Coded Allergies: Calcium Channel Blockers (Verified Allergy, Mild, Edema, 10/15/16) Enalapril (Verified Allergy, Mild, Cough, 10/15/16) Questran (Verified Allergy, Mild, NAUSEA, 10/15/16) HMG-CoA Reductase Inhibitors (Verified Allergy, Unknown, enlarged liver, ) Family History Father had bipolar disorder, hypertension, hyperlipidemia, obesity, type 2 diabetes Mother has hypertension There is family history of pancreatic cancer Social History Patient is and lives with his elderly mother He has 2 children He does not smoke nor has he ever Rarely drinks any alcohol No illicit drug use Works at [employer] Physical Exam Vital Signs Vital Signs Date Time Temp Pulse Resp B/P Pulse Ox O2 Delivery O2 Flow Rate FiO2 10/15/16 17:47 98.5 87 20 131/85 95 10/15/16 16:35 99.8 91 18 120/71 94 10/15/16 15:57 93 Room Air 10/15/16 14:08 21 10/15/16 14:05 88 20 131/66 98 10/15/16 13:50 103.0 97 24 130/78 98 Room Air Physical Exam GENERAL: This is a well-nourished, well-developed patient, in no apparent distress. a/o, no tremor. SKIN: No rashes, ecchymoses or lesions. slightly diaphoretic. HEAD: Atraumatic. Normocephalic. No temporal or scalp tenderness. EYES: Pupils equal round and reactive. Extraocular motions intact. No scleral icterus. No injection or drainage. ENT: Nose without bleeding, purulent drainage or septal hematoma. Throat without erythema, tonsillar hypertrophy or exudate. Uvula midline. Airway patent. NECK: Trachea midline. No JVD or lymphadenopathy. Supple, nontender, no meningeal signs. CARDIOVASCULAR: Regular rate and rhythm without murmurs, gallops, or rubs. RESPIRATORY: Clear to auscultation. Breath sounds equal bilaterally. No wheezes , rales, or rhonchi. GASTROINTESTINAL: Abdomen soft, nondistended. Mild ttp globally. BS wnl to slightly hyperactive. No hepato-splenomegaly, or palpable masses. No guarding. MUSCULOSKELETAL: Extremities without clubbing, cyanosis, or edema. mild joint edema in hands. No calf tenderness. NEUROLOGICAL: Awake and alert. Cranial nerves II through XII intact. Motor and sensory grossly within normal limits. Five out of 5 muscle strength in all muscle groups. Normal speech. Laboratory Laboratory Tests Test 10/15/16 10/15/16 10/15/16 14:28 17:02 17:37 White Blood Count 9.8 Red Blood Count 4.84 Hemoglobin 14.0 Hematocrit 40.1 Mean Corpuscular Volume 82.9 Mean Corpuscular Hemoglobin 28.9 Mean Corpuscular Hemoglobin 34.8 Concent Red Cell Distribution Width 18.1 Platelet Count 126 Mean Platelet Volume 8.8 Neutrophils (%) (Auto) 84.2 Lymphocytes (%) (Auto) 7.2 Monocytes (%) (Auto) 7.2 Eosinophils (%) (Auto) 0.9 Basophils (%) (Auto) 0.5 Neutrophils # (Auto) 8.3 Lymphocytes # (Auto) 0.7 Monocytes # (Auto) 0.7 Eosinophils # (Auto) 0.1 Basophils # (Auto) 0.0 CBC Comment DIFF FINAL Differential Comment Prothrombin Time 11.1 Prothromb Time International 1.0 Ratio Activated Partial 28.2 Thromboplast Time Sodium Level 138 Potassium Level 4.9 Chloride Level 108 Carbon Dioxide Level 21.0 Anion Gap 9 Blood Urea Nitrogen 14 Creatinine 1.26 Estimat Glomerular Filtration 61 Rate Random Glucose 123 Lactic Acid Level 2.2 1.8 Calcium Level 9.3 Phosphorus Level 1.8 Magnesium Level 1.5 Total Bilirubin 0.7 Aspartate Amino Transf 81 (AST/SGOT) Alanine Aminotransferase 58 (ALT/SGPT) Alkaline Phosphatase 89 Total Creatine Kinase 315 Creatine Kinase MB 3.3 Creatine Kinase MB % 1.0 Troponin I LESS THAN 0.02 Total Protein 7.0 Albumin 3.0 Lipase 111 Thyroid Stimulating Hormone 0.483 3rd Gen Urine Color YELLOW Urine Turbidity CLEAR Urine pH 6.5 Urine Specific [place] 1.049 Urine Protein TRACE Urine Glucose (UA) NEG Urine Ketones NEG Urine Occult Blood NEG Urine Nitrite NEG Urine Bilirubin NEG Urine Urobilinogen LESS THAN 2.0 Urine Leukocyte Esterase NEG Urine WBC LESS THAN 1 Urine Squamous Epithelial <1 Cells Microscopic Urinalysis Comment CATH-CULT NOT IND Date/Time Procedure Status Source Growth 10/15/16 18:02 Influenza Types A,B Antigen ([facility]LL) Received Nasal Aspirate Pending 10/15/16 17:57 Aerobic Blood Culture Received Blood Peripheral Pending 10/15/16 17:57 Anaerobic Blood Culture Received Blood Peripheral Pending Result Diagram: 10/15/16 1428 10/15/16 1428 Imaging Last 72 hours Impressions Chest X-Ray 10/15/16 1419 Signed Impressions: Service Date/Time: Saturday, October 15, 2016 14:44 - CONCLUSION: No acute disease. Glenn Morgan MD FACR Abdomen/Pelvis CT 10/15/16 1419 Signed Impressions: Service Date/Time: Saturday, October 15, 2016 16:13 - CONCLUSION: Hepatic steatosis. Splenomegaly. Nonobstructing right renal calculus. No acute CT findings. Wilberto Garcia MD Head CT 10/15/16 0000 Signed Impressions: Service Date/Time: Saturday, October 15, 2016 16:09 - CONCLUSION: 1. Old right cerebellar infarct. 2. Mild cerebral atrophy and minimal periventricular white matter small vessel ischemic changes bilaterally. 3. No acute infarct, acute hemorrhage, mass effect or extra-axial fluid collections. Francis Ricardo MD Assessment and Plan Problem List: (1) SIRS (systemic inflammatory response syndrome) Status: Acute Plan: ? etiology. At this point will hold off on more abx and monitor symptoms; He had diarrhea yesterday and some TTP in Abdomen on exam. ? enteritis. Suggest checking stool if diarrhea recurs. IVF seem to be helping his symptoms. (2) Rheumatoid arthritis Status: Chronic Plan: outpt care. Was on Simponi. (3) Hyperlipidemia Status: Chronic Plan: continue rx (4) Bipolar depression Status: Chronic Plan: continue rx. Mood doing well. (5) Diabetes mellitus type 2, insulin dependent Status: Chronic Plan: ssi, dm diet (6) HTN (hypertension) Status: Chronic Plan: cont rx. fair control. (7) Lumbar radicular syndrome Status: Chronic Plan: cont rx Code Status full Discussed Condition With pt, his mother and ER provider Emmett Velasco MD PhD Oct 15, 2016 18:50
[2016-10-15] MEDS ORDERED: SUMAtriptan SUCCINATE 50 MG TAB PO PRN (19:30)
[2016-10-15] MEDS ORDERED: ACETAMINOPHEN 500 MG CPLT PO PRN (20:00)
[2016-10-15] MEDS ORDERED: ALBUTEROL SULFATE 90 MCG/ACT HFA 18 GM INHALER INH PRN (20:15)
[2016-10-15] MEDS: SODIUM CHLOR 0.9% 1000 ML INJ 1,000 ML IV SCH (20:25)
[2016-10-15] MEDS: LIOTHYRONINE SODIUM 5 MCG TAB PO SCH (21:00)
[2016-10-15] MEDS: CALCIUM CARBONATE 500 MG CHEWABLE TAB PO SCH (21:00)
[2016-10-15] MEDS ORDERED: QUEtiapine FUMARATE 25 MG TAB PO SCH (21:00)
[2016-10-15] MEDS: MORPHINE SULFATE 15 MG CONTROLLED RELEASE TAB PO SCH (21:00)
[2016-10-15] MEDS: PANTOPRAZOLE SOD 40 MG DELAYED RELEASE TAB PO SCH (21:00)
[2016-10-15] MEDS: SPIRONOLACTONE 50 MG TAB PO SCH (21:00)
[2016-10-15] MEDS: INSULIN ASPART SUPPLEMENTAL SCALE SQ SCH (21:00)
[2016-10-15] MEDS: METOPROLOL TARTRATE 100 MG TAB PO SCH (21:00)
[2016-10-15] MEDS ORDERED: DIVALPROEX SODIUM E.R. 500 MG TAB PO SCH (21:00)
[2016-10-15 21:46] VITALS: BP 167/84; PULSE 84; RESP 18; TEMP 97.4; O2SAT 97
[2016-10-16 00:15] VITALS: BP 133/76; PULSE 80; RESP 17; TEMP 98.9; O2SAT 98
[2016-10-16 03:48] VITALS: BP 114/71; PULSE 66; RESP 15; TEMP 97.7; O2SAT 95
[2016-10-16] MEDS: CALCIUM CARBONATE 500 MG CHEWABLE TAB PO SCH (06:00)
[2016-10-16] MEDS ORDERED: LEVOTHYROXINE SODIUM 125 MCG TAB PO SCH (06:00)
[2016-10-16] MEDS: INSULIN ASPART SUPPLEMENTAL SCALE SQ SCH (07:00)
[2016-10-16 07:41] VITALS: BP 122/72; PULSE 72; RESP 21; TEMP 98.1; O2SAT 97
--- NOTE | 2016-10-16 08:04 | EKG ---
Date Performed: 10/15/2016 Time Performed: 14:54:31 PTAGE: 50 years EKG: Sinus rhythm INFERIOR MYOCARDIAL INFARCTION ABNORMAL ECG PREVIOUS TRACING : 07/10/2016 09.47 DOCTOR: Ramos Hillman Interpretating Date/Time 10/16/2016 07:58:53
[2016-10-16] MEDS ORDERED: GABAPENTIN 400 MG CAP PO SCH (09:00)
[2016-10-16] MEDS ORDERED: ASPIRIN EC 81 MG TABEC PO SCH (09:00)
[2016-10-16] MEDS ORDERED: FLUTICASONE 200 MCG/VILANTEROL 25 MCG INHALER INH SCH (09:00)
[2016-10-16] MEDS ORDERED: LURASIDONE 40 MG TAB PO SCH (09:00)
[2016-10-16] MEDS ORDERED: BREO ELLIPTA INH SCH (09:00)
[2016-10-16] MEDS: LIOTHYRONINE SODIUM 5 MCG TAB PO SCH (09:23)
[2016-10-16] MEDS: SPIRONOLACTONE 50 MG TAB PO SCH (09:23)
[2016-10-16] MEDS: MORPHINE SULFATE 15 MG CONTROLLED RELEASE TAB PO SCH (09:23)
[2016-10-16] MEDS: PANTOPRAZOLE SOD 40 MG DELAYED RELEASE TAB PO SCH (09:23)
[2016-10-16] MEDS: METOPROLOL TARTRATE 100 MG TAB PO SCH (09:23)
[2016-10-16] MEDS: SODIUM CHLOR 0.9% 1000 ML INJ 1,000 ML IV SCH (09:24)
--- NOTE | 2016-10-16 09:59 | HHI.PR ---
Subjective Remarks Pt feeling better overall today. He has been afebrile overnight and this morning. Pt has been ambulating in the room without difficulty He denies any abd pain, nausea/vomiting, diarrhea, cough, chest pain, or palpitations. Pt states that he thinks that this was a gastroenteritis as he had been having diarrhea the day before the fevers started yesterday. He had not been eating much at all the last few weeks due to acid reflux that he has been having since he ran out of his PPI at home. Pt is requesting discharge this morning so that he can make it to his appt with Dr. Riggs at 10:45 this morning. Objective Vitals Vital Signs Date Time Temp Pulse Resp B/P Pulse Ox O2 Delivery O2 Flow Rate FiO2 10/16/16 07:41 98.1 72 21 122/72 97 10/16/16 03:48 97.7 66 15 114/71 95 10/16/16 00:15 98.9 80 17 133/76 98 10/15/16 21:46 97.4 84 18 167/84 97 10/15/16 17:47 98.5 87 20 131/85 95 10/15/16 16:35 99.8 91 18 120/71 94 10/15/16 15:57 93 Room Air 10/15/16 14:08 21 10/15/16 14:05 88 20 131/66 98 10/15/16 13:50 103.0 97 24 130/78 98 Room Air Result Diagram: 10/15/16 1428 10/15/16 1428 Other Results Laboratory Tests Test 10/15/16 10/15/16 10/15/16 14:28 17:02 17:37 White Blood Count 9.8 TH/MM3 Red Blood Count 4.84 MIL/MM3 Hemoglobin 14.0 GM/DL Hematocrit 40.1 % Mean Corpuscular Volume 82.9 FL Mean Corpuscular Hemoglobin 28.9 PG Mean Corpuscular Hemoglobin 34.8 % Concent Red Cell Distribution Width 18.1 % Platelet Count 126 TH/MM3 Mean Platelet Volume 8.8 FL Neutrophils (%) (Auto) 84.2 % Lymphocytes (%) (Auto) 7.2 % Monocytes (%) (Auto) 7.2 % Eosinophils (%) (Auto) 0.9 % Basophils (%) (Auto) 0.5 % Neutrophils # (Auto) 8.3 TH/MM3 Lymphocytes # (Auto) 0.7 TH/MM3 Monocytes # (Auto) 0.7 TH/MM3 Eosinophils # (Auto) 0.1 TH/MM3 Basophils # (Auto) 0.0 TH/MM3 CBC Comment DIFF FINAL Differential Comment Prothrombin Time 11.1 SEC Prothromb Time International 1.0 RATIO Ratio Activated Partial 28.2 SEC Thromboplast Time Sodium Level 138 MEQ/L Potassium Level 4.9 MEQ/L Chloride Level 108 MEQ/L Carbon Dioxide Level 21.0 MEQ/L Anion Gap 9 MEQ/L Blood Urea Nitrogen 14 MG/DL Creatinine 1.26 MG/DL Estimat Glomerular Filtration 61 ML/MIN Rate Random Glucose 123 MG/DL Lactic Acid Level 2.2 mmol/L 1.8 mmol/L Calcium Level 9.3 MG/DL Phosphorus Level 1.8 MG/DL Magnesium Level 1.5 MG/DL Total Bilirubin 0.7 MG/DL Aspartate Amino Transf 81 U/L (AST/SGOT) Alanine Aminotransferase 58 U/L (ALT/SGPT) Alkaline Phosphatase 89 U/L Total Creatine Kinase 315 U/L Creatine Kinase MB 3.3 NG/ML Creatine Kinase MB % 1.0 % Troponin I LESS THAN 0.02 NG/ML Total Protein 7.0 GM/DL Albumin 3.0 GM/DL Lipase 111 U/L Thyroid Stimulating Hormone 0.483 uIU/ML 3rd Gen Urine Color YELLOW Urine Turbidity CLEAR Urine pH 6.5 Urine Specific [place] 1.049 Urine Protein TRACE mg/dL Urine Glucose (UA) NEG mg/dL Urine Ketones NEG mg/dL Urine Occult Blood NEG Urine Nitrite NEG Urine Bilirubin NEG Urine Urobilinogen LESS THAN 2.0 MG/DL Urine Leukocyte Esterase NEG Urine WBC LESS THAN 1 /hpf Urine Squamous Epithelial <1 /hpf Cells Microscopic Urinalysis Comment CATH-CULT NOT IND Imaging Last 72 hours Impressions Chest X-Ray 10/15/161418 Signed Impressions: Service Date/Time: Saturday, October 15, 2016 14:44 - CONCLUSION: No acute disease. Glenn Morgan MD FACR Abdomen/Pelvis CT 10/15/16 141 Signed Impressions: Service Date/Time: Saturday, October 15, 2016 16:13 - CONCLUSION: Hepatic steatosis. Splenomegaly. Nonobstructing right renal calculus. No acute CT findings. Wilberto Garcia MD Head CT 10/15/16 0000 Signed Impressions: Service Date/Time: Saturday, October 15, 2016 16:09 - CONCLUSION: 1. Old right cerebellar infarct. 2. Mild cerebral atrophy and minimal periventricular white matter small vessel ischemic changes bilaterally. 3. No acute infarct, acute hemorrhage, mass effect or extra-axial fluid collections. Francis Ricardo MD Objective Remarks General: NAD, AAOx3 Chest: CTA Cardiac: Regular Abd: +BS, soft ND/NT Ext: No edema A/P Problem List: (1) SIRS (systemic inflammatory response syndrome) Status: Acute Plan: - Possible secondary to gastroenteritis. - Pt states that he thinks that this was a gastroenteritis as he had been having diarrhea the day before the fevers started yesterday. He had not been eating much at all the last few weeks due to acid reflux that he has been having since he ran out of his PPI at home. - He denies any abd pain, nausea/vomiting, diarrhea, cough, chest pain, or palpitations. - Pt received IVF yesterday and overnight and is feeling much better today. - Pt feeling better overall today. - He has been afebrile overnight and this morning. No further diarrhea. - Pt has been ambulating in the room without difficulty -Pt is requesting discharge this morning so that he can make it to his appt with Dr. Riggs at 10:45 this morning. I (2) Rheumatoid arthritis Status: Chronic Plan: outpt care. Was on Simponi. (3) Hyperlipidemia Status: Chronic Plan: continue rx (4) Bipolar depression Status: Chronic Plan: continue rx. Mood doing well. (5) Diabetes mellitus type 2, insulin dependent Status: Chronic Plan: ssi, dm diet (6) HTN (hypertension) Status: Chronic Plan: cont rx. fair control. (7) Lumbar radicular syndrome Status: Chronic Plan: cont rx Assessment and Plan Patient examined. Assessment and plan formulated with Heike Castro PA-C. I agree with the above. saw pt briefly. He reports feeling much better and eager for d/c as he has appt with Dr Riggs today. He is eating and ambulating. f/u pcp. Heike Castro Oct 16, 2016 09:59 Anthony Glover MD Oct 16, 2016 10:30
[2016-10-16] MEDS ORDERED: PANT40TA3 PO (10:01)
--- NOTE | 2016-10-16 10:03 | HHI.DCPOC ---
Discharge Care Plan Diagnosis: (1) Fever (2) Diabetes mellitus type 2, insulin dependent (3) SIRS (systemic inflammatory response syndrome) (4) Bipolar depression (5) HTN (hypertension) (6) Hyperlipidemia (7) Rheumatoid arthritis (8) Lumbar spondylosis (9) BPV (benign positional vertigo) (10) Drug-induced Parkinson's disease Goals to Promote Your Health * To prevent worsening of your condition and complications * To maintain your health at the optimal level Directions to Meet Your Goals Take your medications as prescribed Follow your dietary instruction Follow activity as directed Keep your appointments as scheduled Take your immunizations and boosters as scheduled If your symptoms worsen call your PCP, if no PCP go to Urgent Care Center or Emergency Room Smoking is Dangerous to Your Health. Avoid second hand smoke Call the 24-hour hour crisis hotline for domestic abuse at Heike Castro Oct 16, 2016 10:02
== END 2016-10-16 11:26 | disposition home or self-care (01) ==
LOC: NEPE 13:48 → NEDA 17:54 → NEPGCP 19:52
PROVIDERS: ADMIT Hospitalist; ATTEND Hospitalist
DX: R65.10 Systemic inflammatory response syndrome (SIRS) of non-infectious origin without acute organ dysfunction (principal); M06.9 Rheumatoid arthritis, unspecified; E78.5 Hyperlipidemia, unspecified; F31.60 Bipolar disorder, current episode mixed, unspecified; Z79.4 Long term (current) use of insulin; I12.9 Hypertensive chronic kidney disease with stage 1 through stage 4 chronic kidney disease, or unspecified chronic kidney disease; N18.1 Chronic kidney disease, stage 1; R06.02 Shortness of breath; K75.81 Nonalcoholic steatohepatitis (NASH); R91.8 Other nonspecific abnormal finding of lung field; R16.1 Splenomegaly, not elsewhere classified; N20.0 Calculus of kidney; H53.8 Other visual disturbances; R11.0 Nausea; G31.9 Degenerative disease of nervous system, unspecified; R94.31 Abnormal electrocardiogram [ECG] [EKG]; M54.16 Radiculopathy, lumbar region; E11.22 Type 2 diabetes mellitus with diabetic chronic kidney disease; G21.19 Other drug induced secondary parkinsonism; K21.9 Gastro-esophageal reflux disease without esophagitis; F41.1 Generalized anxiety disorder; E26.01 Conn's syndrome; E78.1 Pure hyperglyceridemia; G89.29 Other chronic pain; E03.9 Hypothyroidism, unspecified; I25.2 Old myocardial infarction; M47.816 Spondylosis without myelopathy or radiculopathy, lumbar region; E78.00 Pure hypercholesterolemia, unspecified; M19.90 Unspecified osteoarthritis, unspecified site; J45.909 Unspecified asthma, uncomplicated; F31.9 Bipolar disorder, unspecified; G47.30 Sleep apnea, unspecified; M96.1 Postlaminectomy syndrome, not elsewhere classified; F41.0 Panic disorder [episodic paroxysmal anxiety]; Z85.850 Personal history of malignant neoplasm of thyroid; Z98.84 Bariatric surgery status; Z98.1 Arthrodesis status; Z79.899 Other long term (current) drug therapy; Z79.82 Long term (current) use of aspirin; Z86.73 Personal history of transient ischemic attack (TIA), and cerebral infarction without residual deficits
CPT/HCPCS: 70450; 71020; 74177; 80053; 81001; 82550; 82552; 82948; 83605; 83690; 83735; 84100; 84145; 84443; 84484; 85025; 85610; 85730; 87040; 87804; 93005; 96360; 96361; 99285; G0378; J0696; J1815; J3370; J7030; J7050; Q9967

== ENCOUNTER 2016-10-26 08:28 | Inpatient (IN) | payer OTHER ==
[2016-10-26] VITALS (9 sets, daily range): BP systolic 131–159; BP diastolic 72–83; PULSE 88–103; RESP 15–18; TEMP 99.4–102.8; O2SAT 93–99
[~2016-10-26] VITALS: Ht 182.9 cm; Wt 119.0 kg
--- NOTE | 2016-10-26 08:55 | PD ---
HPI Chief Complaint: Fever Time Seen by Provider: 08:42 Travel History International Travel<30 days: No Contact w/Intl Traveler<30days: No Traveled to known affect area: No History of Present Illness HPI Patient is a 50-year-old male with history of hypertension, hyperlipidemia, hypothyroidism, diabetes, and to the emergency room with complaints of fevers for the past 3 days. Patient reports that for the past 3 days, he has had high fevers with a MAXIMUM TEMPERATURE of 103, reports that he has had a nonproductive cough, and that he feels generalized weakness. Patient reports that his symptoms have progressed this morning and that he feels so weak, he has been unable to get out of bed. Reports that taking acetaminophen for his fever -last dose of Tylenol was last night. Patient denies any chest pain or shortness breath at this time. Patient denies any abdominal pain, denies any nausea or vomiting. Patient is reports dry cough with fevers. Patient with no recent travels or trips, denies any sick contacts. EMS reports that patient's pulse ox was 92% on room air upon their arrival, they did place patient on oxygen. They also administered 1 L of normal saline through his IV. PFSH Past Medical History Arthritis: Yes (RHEUMATOID) Asthma: Yes Blood Disorders: No Bipolar Disorder: Yes Anxiety: Yes Depression: Yes Heart Rhythm Problems: No Cancer: Yes (THYROID) Cardiac Catheterization: Yes (2006) Cardiovascular Problems: Yes High Cholesterol: Yes Chemotherapy: No Chest Pain: No Congestive Heart Failure: No COPD: No Cerebrovascular Accident: No Diabetes: Yes Patient Takes Glucophage: Yes Diminished Hearing: No Endocrine: Yes (HYPOALDOSTORISM,) Gastrointestinal Disorders: Yes GERD: Yes Genitourinary: No Headaches: Yes Hepatitis: No Hiatal Hernia: No Hypertension: Yes Immune Disorder: No Implanted Vascular Access Dvce: Yes Musculoskeletal: Yes (LUMBAR FUSION/ NERVE STIM) Neurologic: Yes Psychiatric: Yes (CLAUSTROPHOBIC) Reproductive: No Respiratory: Yes Migraines: Yes Myocardial Infarction: No Pneumonia: Yes Radiation Therapy: Yes Renal Failure: No Seizures: No Sleep Apnea: Yes (USES CPAP) Thyroid Disease: Yes Tetanus Vaccination: < 5 Years Influenza Vaccination: Yes Past Surgical History Abdominal Surgery: Yes AICD: No Body Medical Devices: LOWER BACK TITANIUM SCREWS AND RODS, SPINAL CORD STIMULATOR Cardiac Surgery: No Cholecystectomy: Yes Ear Surgery: No Endocrine Surgery: Yes (THYROIDECTOMY) Eye Surgery: No Genitourinary Surgery: Yes (1999 VASECTOMY) Gynecologic Surgery: Yes Insulin Pump: Yes Joint Replacement: No Neurologic Surgery: Yes (LUMBAR FUSION, SPINAL STIMULATOR IMPL.) Oral Surgery: No Pacemaker: No Thoracic Surgery: No Other Surgery: Yes (EX. SCAR FOOT, ARTHROSCOPY RIGHT KNEE, NEUROSTEM STENT IN AND REMOVED) Social History Alcohol Use: No Tobacco Use: No Substance Use: No Allergies-Medications (Allergen,Severity, Reaction): Coded Allergies: Calcium Channel Blockers (Verified Allergy, Mild, Edema, 10/15/16) Enalapril (Verified Allergy, Mild, Cough, 10/15/16) Questran (Verified Allergy, Mild, NAUSEA, 10/15/16) HMG-CoA Reductase Inhibitors (Verified Allergy, Unknown, enlarged liver, ) Reported Meds & Prescriptions Reported Meds & Active Scripts Active Pantoprazole (Pantoprazole Sodium) 40 Mg Tab 40 Mg PO BID NEB Aspirin EC (Aspirin) 81 Mg Tabdr 81 Mg PO DAILY Reported Cytomel (Liothyronine Sodium) 5 Mcg Tablet 10 Mcg PO BID Vitamin D3 (Cholecalciferol) 50,000 Unit Cap 50,000 Units PO 2XWEEK Morphine ER (Morphine Sulfate) 15 Mg Tab 15 Mg PO BID Mobic (Meloxicam) 15 Mg Tab 15 Mg PO DAILY Take with food Seroquel (Quetiapine Fumarate) 25 Mg Tab 125 Mg PO HS Gabapentin 400 Mg Cap 800 Cap PO TID Breo Ellipta Inh (Fluticasone/Vilanterol) 200-25 Mcg/Act Inh 1 Puff INH DAILY Use daily at the same time. Latuda (Lurasidone) 40 Mg Tab 40 Mg PO DAILY Spironolactone 50 Mg Tab 100 Mg PO BID Ventolin Hfa 18 GM Inh (Albuterol Sulfate) 90 Mcg/Act Aer 2 Puff INH Q4H PRN Chewable Calcium (Calcium Carbonate) 500 Mg Chw 500 Mg PO BID Depakote ER (Divalproex Sodium) 500 Mg Khanh 2,500 Mg PO HS Humulin R U-500 (Concentrate) Inj (Insulin Regular (Human) Concentrate Inj) 10, 000 Unit/20 Ml Vial VIA INSULIN PUMP Levothyroxine (Levothyroxine Sodium) 125 Mcg Tab 250 Mcg PO DAILY Metoprolol Tartrate 100 Mg Tab 200 Mg PO BID Imitrex (Sumatriptan Succinate) 100 Mg Tab 100 Mg PO ONCE PRN If a satisfactory response has not been obtained at 2 hours, a second dose may be administered Review of Systems General / Constitutional: Positive: Fever, Chills Eyes: No: Visual changes HENT: No: Headaches Cardiovascular: No: Chest Pain or Discomfort Respiratory: Positive: Cough, No: Shortness of Breath Gastrointestinal: No: Abdominal Pain Genitourinary: No: Dysuria Musculoskeletal: No: Pain Skin: No Rash Neurologic: No: Weakness Psychiatric: No: Depression Endocrine: No: Polydipsia Hematologic/Lymphatic: No: Easy Bruising Physical Exam Narrative GENERAL: Mild distress SKIN: Focused skin assessment warm/dry. HEAD: Atraumatic. Normocephalic. EYES: Pupils equal and round. No scleral icterus. No injection or drainage. ENT: No nasal bleeding or discharge. Mucous membranes pink and moist. NECK: Trachea midline. No JVD. CARDIOVASCULAR: Regular rate and rhythm. No murmur appreciated. RESPIRATORY: No accessory muscle use. Clear to auscultation. Breath sounds equal bilaterally. GASTROINTESTINAL: Abdomen soft, non-tender, nondistended. Hepatic and splenic margins not palpable. MUSCULOSKELETAL: No obvious deformities. No clubbing. No cyanosis. No edema. NEUROLOGICAL: Awake and alert. No obvious cranial nerve deficits. Motor grossly within normal limits. Normal speech. PSYCHIATRIC: Appropriate mood and affect; insight and judgment normal. Data Data Last Documented VS Vital Signs Date Time Temp Pulse Resp B/P Pulse Ox O2 Delivery O2 Flow Rate FiO2 10/26/16 10:00 93 16 147/77 94 Nasal Cannula 2 10/26/16 08:38 99.4 Orders Electrocardiogram (10/26/16 ) Electrocardiogram (10/26/16 08:42) Complete Blood Count With Diff (10/26/16 08:42) Comprehensive Metabolic Panel (10/26/16 08:42) Prothrombin Time / Inr (Pt) (10/26/16 08:42) Act Partial Throm Time (Ptt) (10/26/16 08:42) Lactic Acid Sepsis Protocol (10/26/16 08:42) Magnesium (Mg) (10/26/16 08:42) Lipase (10/26/16 08:42) Ckmb (Isoenzyme) Profile (10/26/16 08:42) Troponin I (10/26/16 08:42) Urinalysis - C+S If Indicated (10/26/16 08:42) Blood Culture (10/26/16 08:42) Chest, Single Ap (10/26/16 08:42) Arterial Blood Gas (Abg) (10/26/16 08:42) Ecg Monitoring (10/26/16 08:43) Iv Access Insert/Monitor (10/26/16 08:43) Oximetry (10/26/16 08:43) CKMB (10/26/16 08:45) CKMB% (10/26/16 08:45) Ceftriaxone Inj (Rocephin Inj) (10/26/16 10:00) Azithromycin Inj (Zithromax Inj) (10/26/16 10:00) Influenzae A/B Antigen (10/26/16 10:20) Place In Observation (10/26/16 ) Code Status (10/26/16 10:20) Vital Signs (Adult) Q4H (10/26/16 10:20) Activity Oob With Assistance (10/26/16 10:20) Diet Regular Basic (10/26/16 Lunch) Sodium Chloride 0.9% Flush (Ns Flush) (10/26/16 10:30) Sodium Chloride 0.9% Flush (Ns Flush) (10/26/16 21:00) Acetaminophen (Tylenol) (10/26/16 10:30) Ondansetron Inj (Zofran Inj) (10/26/16 10:30) Temazepam (Restoril) (10/26/16 10:30) Basic Metabolic Panel (Bmp) (10/27/16 06:00) Complete Blood Count With Diff (10/27/16 06:00) Electrocardiogram (10/26/16 10:20) Pt Request For Service (10/26/16 10:20) Scd Bilateral/Knee High [id number] (10/26/16 10:20) Naloxone Inj (Narcan Inj) (10/26/16 10:30) Magnesium Hydroxide Liq (Milk Of Magnesi (10/26/16 10:30) 1/2 Ns + Kcl 20 Meq Inj (1/2 Ns + Kcl 20 (10/26/16 12:00) Creatine Kinase (Cpk) (10/27/16 06:00) Albuterol Hfa Inh (Proair Hfa Inh) (10/26/16 10:30) Aspirin Ec (Ecotrin Ec) (10/26/16 10:30) Divalproex Er (Depakote Er) (10/26/16 21:00) Fluticasone-Vilant 200-25 Inh (Breo Tere (10/26/16 10:30) Gabapentin (Neurontin) (10/26/16 13:00) Levothyroxine (Synthroid) (10/26/16 10:30) Liothyronine (Cytomel) (10/26/16 10:30) Lurasidone (Latuda) (10/26/16 10:30) Meloxicam (Mobic) (10/26/16 10:30) Metoprolol Tartrate (Lopressor) (10/26/16 10:30) Morphine Sr (Oramorph Sr) (10/26/16 10:30) Pantoprazole (Protonix) (10/26/16 10:30) Quetiapine (Seroquel) (10/26/16 21:00) Spironolactone (Aldactone) (10/26/16 10:30) Sumatriptan Succinate (Imitrex) (10/26/16 10:30) Insulin Aspart Supplemtl Scale (Novolog (10/26/16 11:00) Admit Order (Ed Use Only) (10/26/16 10:41) Labs Laboratory Tests Test 10/26/16 10/26/16 08:45 08:51 White Blood Count 13.8 TH/MM3 Red Blood Count 4.37 MIL/MM3 Hemoglobin 12.4 GM/DL Hematocrit 37.5 % Mean Corpuscular Volume 85.8 FL Mean Corpuscular Hemoglobin 28.4 PG Mean Corpuscular Hemoglobin 33.1 % Concent Red Cell Distribution Width 17.4 % Platelet Count 156 TH/MM3 Mean Platelet Volume 8.4 FL Neutrophils (%) (Auto) 76.3 % Lymphocytes (%) (Auto) 10.6 % Monocytes (%) (Auto) 12.7 % Eosinophils (%) (Auto) 0.2 % Basophils (%) (Auto) 0.2 % Neutrophils # (Auto) 10.5 TH/MM3 Lymphocytes # (Auto) 1.5 TH/MM3 Monocytes # (Auto) 1.8 TH/MM3 Eosinophils # (Auto) 0.0 TH/MM3 Basophils # (Auto) 0.0 TH/MM3 CBC Comment DIFF FINAL Differential Comment Prothrombin Time 12.7 SEC Prothromb Time International 1.1 RATIO Ratio Activated Partial 32.5 SEC Thromboplast Time Sodium Level 139 MEQ/L Potassium Level 3.6 MEQ/L Chloride Level 106 MEQ/L Carbon Dioxide Level 23.8 MEQ/L Anion Gap 9 MEQ/L Blood Urea Nitrogen 14 MG/DL Creatinine 1.16 MG/DL Estimat Glomerular Filtration 67 ML/MIN Rate Random Glucose 95 MG/DL Lactic Acid Level 1.4 mmol/L Calcium Level 9.1 MG/DL Magnesium Level 1.5 MG/DL Total Bilirubin 0.8 MG/DL Aspartate Amino Transf 29 U/L (AST/SGOT) Alanine Aminotransferase 24 U/L (ALT/SGPT) Alkaline Phosphatase 89 U/L Total Creatine Kinase 977 U/L Creatine Kinase MB 2.8 NG/ML Creatine Kinase MB % 0.3 % Troponin I LESS THAN 0.02 NG/ML Total Protein 6.9 GM/DL Albumin 2.5 GM/DL Lipase 83 U/L Blood Gas Puncture Site RT RADIAL Blood Gas Patient Temperature 98.6 Blood Gas HCO3 24 mmol/L Blood Gas Base Excess 0.2 mmol/L Blood Gas Oxygen Saturation 94 % Arterial Blood pH 7.45 Arterial Blood Partial 35 mmHg Pressure CO2 Arterial Blood Partial 86 mmHG Pressure O2 Arterial Blood Oxygen Content 15.7 Vol % Arterial Blood 1.7 % Carboxyhemoglobin Arterial Blood Methemoglobin 1.0 % Blood Gas Hemoglobin 11.8 G/DL Oxygen Delivery Device NASAL CANNULA Blood Gas Liter Flow 2 L/M MDM Medical Decision Making Medical Screen Exam Complete: Yes Emergency Medical Condition: Yes Interpretation(s) EKG at 0840: NSR at 88bpm, qt/qtc: 347/393m no acute st or t wave changes Vital Signs Date Time Temp Pulse Resp B/P Pulse Ox O2 Delivery O2 Flow Rate FiO2 10/26/16 08:44 15 93 Room Air 10/26/16 08:38 99.4 90 16 139/79 98 Differential Diagnosis Differential includes pneumonia, viral syndrome, ACS, arrhythmia, electrolyte abnormality Narrative Course Patient is a 50-year-old male who presents to emergency room with complaints of fevers and chills with nonproductive cough for the past 3 days. Reports that he has been feeling very weak while at home; reports that he felt so weak this morning, he had to have his mother help him to get out of bed. When EMS arrived to his home, patient's room air pulse ox was 92% - he does not use home oxygen and he is a nonsmoker. Patient was given 1 L IV fluids on route to the emergency room. Vital signs are stable, patient is afebrile, not tachycardic while in the emergency room. He is 93% pulse ox on room air. When to obtain ABG, of the chest, lab work, blood cultures. Plan to monitor patient. Laboratory Tests Test 10/26/16 10/26/16 08:45 08:51 White Blood Count 13.8 TH/MM3 (4.0-11.0) Red Blood Count 4.37 MIL/MM3 (4.50-5.90) Hemoglobin 12.4 GM/DL (13.0-17.0) Hematocrit 37.5 % (39.0-51.0) Mean Corpuscular Volume 85.8 FL (80.0-100.0) Mean Corpuscular Hemoglobin 28.4 PG (27.0-34.0) Mean Corpuscular Hemoglobin 33.1 % Concent (32.0-36.0) Red Cell Distribution Width 17.4 % (11.6-17.2) Platelet Count 156 TH/MM3 (150-450) Mean Platelet Volume 8.4 FL (7.0-11.0) Neutrophils (%) (Auto) 76.3 % (16.0-70.0) Lymphocytes (%) (Auto) 10.6 % (9.0-44.0) Monocytes (%) (Auto) 12.7 % (0.0-8.0) Eosinophils (%) (Auto) 0.2 % (0.0-4.0) Basophils (%) (Auto) 0.2 % (0.0-2.0) Neutrophils # (Auto) 10.5 TH/MM3 (1.8-7.7) Lymphocytes # (Auto) 1.5 TH/MM3 (1.0-4.8) Monocytes # (Auto) 1.8 TH/MM3 (0-0.9) Eosinophils # (Auto) 0.0 TH/MM3 (0-0.4) Basophils # (Auto) 0.0 TH/MM3 (0-0.2) CBC Comment DIFF FINAL Differential Comment Prothrombin Time 12.7 SEC (9.8-11.6) Prothromb Time International 1.1 RATIO Ratio Activated Partial 32.5 SEC Thromboplast Time (24.3-30.1) Sodium Level 139 MEQ/L (136-145) Potassium Level 3.6 MEQ/L (3.5-5.1) Chloride Level 106 MEQ/L (98-107) Carbon Dioxide Level 23.8 MEQ/L (21.0-32.0) Anion Gap 9 MEQ/L (5-15) Blood Urea Nitrogen 14 MG/DL (7-18) Creatinine 1.16 MG/DL (0.60-1.30) Estimat Glomerular Filtration 67 ML/MIN (>89) Rate Random Glucose 95 MG/DL (74-106) Lactic Acid Level 1.4 mmol/L (0.4-2.0) Calcium Level 9.1 MG/DL (8.5-10.1) Magnesium Level 1.5 MG/DL (1.5-2.5) Total Bilirubin 0.8 MG/DL (0.2-1.0) Aspartate Amino Transf 29 U/L (15-37) (AST/SGOT) Alanine Aminotransferase 24 U/L (12-78) (ALT/SGPT) Alkaline Phosphatase 89 U/L (45-117) Total Creatine Kinase 977 U/L (39-308) Creatine Kinase MB 2.8 NG/ML (0.5-3.6) Creatine Kinase MB % 0.3 % (0.0-4.0) Troponin I LESS THAN 0.02 NG/ML (0.02-0.05) Total Protein 6.9 GM/DL (6.4-8.2) Albumin 2.5 GM/DL (3.4-5.0) Lipase 83 U/L (73-393) Blood Gas Puncture Site RT RADIAL Blood Gas Patient Temperature 98.6 Blood Gas HCO3 24 mmol/L (22-26) Blood Gas Base Excess 0.2 mmol/L (-2-2) Blood Gas Oxygen Saturation 94 % (90-100) Arterial Blood pH 7.45 (7.380-7.420) Arterial Blood Partial 35 mmHg (38-42) Pressure CO2 Arterial Blood Partial 86 mmHG Pressure O2 (61-120) Arterial Blood Oxygen Content 15.7 Vol % (12.0-20.0) Arterial Blood 1.7 % (0-4) Carboxyhemoglobin Arterial Blood Methemoglobin 1.0 % (0-2) Blood Gas Hemoglobin 11.8 G/DL (12.0-16.0) Oxygen Delivery Device NASAL CANNULA Blood Gas Liter Flow 2 L/M Last Impressions Chest X-Ray 10/26/16 0842 Signed Impressions: Service Date/Time: Wednesday, October 26, 2016 08:47 - CONCLUSION: Questionable small infiltrate in right lung base laterally. Left lung is clear. Dewey Madsen MD Patient with questionable small infiltrate to right lung base. He has been wolff cultured, he has been given azithromycin as well as rocephin. Plan to obs as patient reports increased generalized weakness. Case reviewed with Dr. Sweeney who accepts pt to service Diagnosis Primary Impression: Pneumonia Admitting Information Admitting Physician Requests: Observation Heike Silva DO Oct 26, 2016 08:55
[2016-10-26 09:11] LABS: AUTOMATED NEUTROPHIL # 10.5 TH/MM3 (1.8-7.7); BASOPHIL % 0.2 % (0.0-2.0); EOSINOPHIL % 0.2 % (0.0-4.0); HEMATOCRIT 37.5 % (39.0-51.0); HEMO FLAGS DIFF FINAL; LYMPH % 10.6 % (9.0-44.0); LYMPHOCYTE # 1.5 TH/MM3 (1.0-4.8); MEAN CELL VOLUME 85.8 FL (80.0-100.0); MEAN CORPUSCULAR HEMOGLOBIN 28.4 PG (27.0-34.0); MEAN CORPUSCULAR HGB CONC 33.1 % (32.0-36.0); MONO % 12.7 % (0.0-8.0); NEUT % 76.3 % (16.0-70.0); PLATELET COUNT 156 TH/MM3 (150-450); RED BLOOD COUNT 4.37 MIL/MM3 (4.50-5.90); RED CELL DISTRIBUTION WIDTH 17.4 % (11.6-17.2); WHITE BLOOD COUNT 13.8 TH/MM3 (4.0-11.0)
--- NOTE | 2016-10-26 09:14 | RADRPT ---
EXAM DATE/TIME: 10/26/2016 08:47 [facility] COMPARISON: CHEST SINGLE AP, July 10, 2016, 9:51. INDICATIONS : Cough, fever and weakness MEDICAL HISTORY : Hypercholesterolemia. Rheumatoid arthritis. Hypertension. Hyperlipidemia. G ERD. Hypoaldostorism. Steatohepatitis. Thyroid caner. SURGICAL HISTORY : Cholecystectomy. Fusion, lumbar. ENCOUNTER: Sequela ACUITY: 2 weeks PAIN SCORE: 0/10 LOCATION: Bilateral chest FINDINGS: A single view of the chest demonstrates the lungs to be symmetrically aerated without evidence of mas s, or effusion. There is some increased density in the inferolateral right chest could be a small are a of infiltrate. The cardiomediastinal contours are unremarkable. Osseous structures are intact. CONCLUSION: Questionable small infiltrate in right lung base laterally. Left lung is clear. Dewey Madsen MD on October 26, 2016 at 9:12 Board Certified Radiologist. This report was verified electronically.
[2016-10-26 09:22] LABS: APTT (PATIENT) 32.5 SEC (24.3-30.1); INTERNATIONAL NORMALIZED RATIO 1.1 RATIO; PROTHROMBIN TIME - PATIENT 12.7 SEC (9.8-11.6)
[2016-10-26 09:25] LABS: ANION GAP 9 MEQ/L (5-15); AST (GOT) 29 U/L (15-37); BICARBONATE 23.8 MEQ/L (21.0-32.0); BLOOD UREA NITROGEN 14 MG/DL (7-18); CHLORIDE 106 MEQ/L (98-107); GLOMERULAR FILTRATION RATE 67 ML/MIN (>89); MAGNESIUM 1.5 MG/DL (1.5-2.5); POTASSIUM 3.6 MEQ/L (3.5-5.1); SODIUM (NA) 139 MEQ/L (136-145)
[2016-10-26 09:26] LABS: ALT (GPT) 24 U/L (12-78)
[2016-10-26 09:29] LABS: ALKALINE PHOSPHATASE 89 U/L (45-117); CREATINE KINASE 977 U/L (39-308); TOTAL BILIRUBIN ADULT 0.8 MG/DL (0.2-1.0)
[2016-10-26 09:44] LABS: CKMB 2.8 NG/ML (0.5-3.6)
[2016-10-26] MEDS ORDERED: cefTRIAXone INJ 1,000 MG in SODIUM CHLORIDE 0.9% INJ 100 ML IV ONE (10:00)
[2016-10-26] MEDS ORDERED: AZITHROMYCIN INJ 500 MG in SODIUM CHLOR 0.9% 250 ML INJ 250 ML IV ONE (10:00)
[2016-10-26] MEDS ORDERED: ONDANSETRON HCL 4 MG/2 ML VIAL IVP PRN (10:30)
[2016-10-26] MEDS: ASPIRIN EC 81 MG TABEC PO SCH (10:30)
[2016-10-26] MEDS ORDERED: NALOXONE HCL 0.4 MG/ML AMP IV PRN (10:30)
[2016-10-26] MEDS ORDERED: SUMAtriptan SUCCINATE 50 MG TAB PO PRN (10:30)
[2016-10-26] MEDS ORDERED: MAGNESIUM HYDROXIDE SUSP 30 ML CUP PO PRN (10:30)
[2016-10-26] MEDS ORDERED: TEMAZEPAM 15 MG CAP PO PRN (10:30)
[2016-10-26] MEDS ORDERED: SODIUM CHLORIDE 0.9% FLUSH 10 ML FLUSH IV FLUSH PRN (10:30)
[2016-10-26] MEDS ORDERED: ALBUTEROL SULFATE 90 MCG/ACT HFA 18 GM INHALER INH PRN (10:30)
[2016-10-26 10:35] LABS: BLOOD GAS BASE EXCESS 0.2 mmol/L (-2-2); BLOOD GAS CARBOXYHEMOGLOBIN 1.7 % (0-4); BLOOD GAS HCO3 24 mmol/L (22-26); BLOOD GAS O2 HGB SATURATION 94 % (90-100); BLOOD GAS OXYGEN CONTENT 15.7 Vol % (12.0-20.0); BLOOD GAS PCO2 35 mmHg (38-42); BLOOD GAS PO2 86 mmHG (61-120); BLOOD GAS TOTAL HGB 11.8 G/DL (12.0-16.0); TEMP CORR TO 98.6
[2016-10-26 10:36] LABS: CRITICAL VALUE NO; DRAW SITE RT RADIAL; LITER FLOW 2 L/M; NUMBER OF ARTERIAL PUNCTURES 1; OXYGEN DEVICE NASAL CANNULA; STAT NO; ULNAR PULSE PRESENT
[2016-10-26] MEDS: INSULIN ASPART SUPPLEMENTAL SCALE SQ SCH ×3 (11:00→20:32)
[2016-10-26] MEDS: 1/2 NS + KCL 20 MEQ INJ 1,000 ML IV SCH (11:22)
[2016-10-26] MEDS: MORPHINE SULFATE 15 MG CONTROLLED RELEASE TAB PO SCH ×2 (11:23→23:00)
[2016-10-26] MEDS: LIOTHYRONINE SODIUM 5 MCG TAB PO SCH ×2 (11:23→21:29)
[2016-10-26] MEDS: LURASIDONE 40 MG TAB PO SCH (11:24)
[2016-10-26] MEDS: LEVOTHYROXINE SODIUM 125 MCG TAB PO SCH (11:24)
[2016-10-26] MEDS: MELOXICAM 15 MG TAB PO SCH (11:24)
[2016-10-26] MEDS: METOPROLOL TARTRATE 100 MG TAB PO SCH ×2 (11:24→20:33)
[2016-10-26] MEDS: FLUTICASONE 200 MCG/VILANTEROL 25 MCG INHALER INH SCH (11:25)
[2016-10-26] MEDS: SPIRONOLACTONE 100 MG TAB PO SCH ×2 (11:26→21:29)
[2016-10-26] MEDS: PANTOPRAZOLE SOD 40 MG DELAYED RELEASE TAB PO SCH ×2 (11:26→21:29)
[2016-10-26] MEDS: GABAPENTIN 400 MG CAP PO SCH ×2 (12:48→18:26)
--- NOTE | 2016-10-26 13:15 | EKG ---
Date Performed: 10/26/2016 Time Performed: 08:40:24 PTAGE: 50 years EKG: Sinus rhythm POSSIBLE INFERIOR MYOCARDIAL INFARCTION BORDERLINE ECG PREVIOUS TRACING : 10/15/2016 14.54 Compared to prior tracing no significant change DOCTOR: John El Interpretating Date/Time 10/26/2016 13:15:23
[2016-10-26] MEDS: ACETAMINOPHEN 325 MG TAB PO PRN ×2 (16:54→21:28)
--- NOTE | 2016-10-26 16:54 | HHI.HP ---
HPI Service [facility] Hospitalists Primary Care Physician Emmett Velasco MD, PhD Admission Diagnosis Pneumonia Chief Complaint: fever Travel History International Travel<30 Days: No Contact w/Intl Traveler <30 Da: No Traveled to Known Affected Are: No History of Present Illness Patient is a pleasant 50-year-old male with history of hypertension, hyperlipidemia, hypothyroidism, diabetes, diabetic nephropathy, rheumatoid arthritis, bipolar disorder, and drug-induced Parkinson's disease. Patient reported to the ER with complaint of fever for 3 days. Per patient MAXIMUM TEMPERATURE of 103F. Patient complains of nonproductive cough and generalized weakness. Patient denies any recent travel or sick contacts. Patient states that he was quite weak this morning and unable to get out of bed without assistance. Patient was admitted to [facility] with complaints of fever approximately 10 days ago. At that time, workup was essentially negative and symptoms were attributed to gastroenteritis. Of note, patient is being followed by neurosurgery, Dr. Jose Riggs. Patient had a recent cervical myelogram. Dr. Riggs reviewed the study with the patient and noted no spinal stenosis or cervical cord compression. Dr. Riggs recommended EMG and referral to pain management. Review of Systems Constitutional: COMPLAINS OF: Fever, DENIES: Diaphoretic episodes, Fatigue, Weight gain, Weight loss, Chills, Dizziness, Change in appetite, Night Sweats Endocrine: DENIES: Heat/cold intolerance, Polydipsia, Polyuria, Polyphagia Eyes: DENIES: Blurred vision, Diplopia, Eye inflammation, Eye pain, Vision loss , Photosensitivity, Double Vision Ears, nose, mouth, throat: DENIES: Tinnitus, Hearing loss, Vertigo, Nasal discharge, Oral lesions, Throat pain, Hoarseness, Ear Pain, Running Nose, Epistaxis, Sinus Pain, Toothache, Odynophagia Respiratory: DENIES: Apneas, Cough, Snoring, Wheezing, Hemoptysis, Sputum production, Shortness of breath Cardiovascular: DENIES: Chest pain, Palpitations, Syncope, Dyspnea on Exertion , PND, Lower Extremity Edema, Orthopnea, Claudication Gastrointestinal: DENIES: Abdominal pain, Black stools, Bloody stools, BRB per rectum, Constipation, Diarrhea, GERD, Nausea, Reflux, Vomiting, Difficulty Swallowing, Anorexia Genitourinary: DENIES: Urinary frequency, Urinary incontinence, Urgency, Hematuria, Dysuria, Nocturia Musculoskeletal: DENIES: Joint pain, Muscle aches, Stiffness, Joint Swelling, Back pain, Neck pain Integumentary: DENIES: Abnormal pigmentation, Nail changes, Pruritus, Rash Hematologic/lymphatic: DENIES: Bruising, Lymphadenopathy Immunologic/allergic: DENIES: Eczema, Urticaria Neurologic: DENIES: Abnormal gait, Headache, Localized weakness, Paresthesias, Seizures, Speech Problems, Tremor, Poor Balance Psychiatric: DENIES: Anxiety, Confusion, Mood changes, Depression, Hallucinations, Agitation, Suicidal Ideation, Homicidal Ideation, Delusions, History of Bipolar, History of Schizophrenia Past Family Social History Past Medical History Generalized anxiety disorder Conn's syndrome Bipolar disorder type I, mixed History of thyroid cancer Chronic kidney disease stage I Obesity Diabetes with neuropathy and nephropathy Essential hypertriglyceridemia Lumbar facet syndrome with chronic pain Esophageal reflux disorder Hypertension Hypothyroidism Metabolic syndrome Migraine headaches Obesity Panic disorder without turgor phobia Postlaminectomy syndrome Rheumatoid arthritis 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 asthmatic bronchitis Past Surgical History Cardiac catheter reportedly negative Cholecystectomy Circumcision due to phimosis Lumbar laminectomy Gastric bypass surgery for morbid obesity Multiple lumbar paravertebral blocks Rhizotomy Spinal neurostimulator placement Vasectomy Total thyroidectomy L4 to S1 fusion Reported Medications Reported Meds & Active Scripts Active Pantoprazole (Pantoprazole Sodium) 40 Mg Tab 40 Mg PO BID NEB Aspirin EC (Aspirin) 81 Mg Tabdr 81 Mg PO DAILY Reported Cytomel (Liothyronine Sodium) 5 Mcg Tablet 10 Mcg PO BID Vitamin D3 (Cholecalciferol) 50,000 Unit Cap 50,000 Units PO 2XWEEK Morphine ER (Morphine Sulfate) 15 Mg Tab 15 Mg PO BID Mobic (Meloxicam) 15 Mg Tab 15 Mg PO DAILY Take with food Seroquel (Quetiapine Fumarate) 25 Mg Tab 125 Mg PO HS Gabapentin 400 Mg Cap 800 Cap PO TID Breo Ellipta Inh (Fluticasone/Vilanterol) 200-25 Mcg/Act Inh 1 Puff INH DAILY Use daily at the same time. Latuda (Lurasidone) 40 Mg Tab 40 Mg PO DAILY Spironolactone 50 Mg Tab 100 Mg PO BID Ventolin Hfa 18 GM Inh (Albuterol Sulfate) 90 Mcg/Act Aer 2 Puff INH Q4H PRN Chewable Calcium (Calcium Carbonate) 500 Mg Chw 500 Mg PO BID Depakote ER (Divalproex Sodium) 500 Mg Khanh 2,500 Mg PO HS Humulin R U-500 (Concentrate) Inj (Insulin Regular (Human) Concentrate Inj) 10, 000 Unit/20 Ml Vial VIA INSULIN PUMP Levothyroxine (Levothyroxine Sodium) 125 Mcg Tab 250 Mcg PO DAILY Metoprolol Tartrate 100 Mg Tab 200 Mg PO BID Imitrex (Sumatriptan Succinate) 100 Mg Tab 100 Mg PO ONCE PRN If a satisfactory response has not been obtained at 2 hours, a second dose may be administered Allergies: Coded Allergies: Calcium Channel Blockers (Verified Allergy, Mild, Edema, 10/15/16) Enalapril (Verified Allergy, Mild, Cough, 10/15/16) Questran (Verified Allergy, Mild, NAUSEA, 10/15/16) HMG-CoA Reductase Inhibitors (Verified Allergy, Unknown, enlarged liver, ) Family History Father had bipolar disorder, hypertension, hyperlipidemia, obesity, type 2 diabetes Mother has hypertension There is family history of pancreatic cancer Social History Patient is and lives with his elderly mother He has 2 children He does not smoke nor has he ever Rarely drinks any alcohol No illicit drug use Works at [employer] Physical Exam Vital Signs Vital Signs Date Time Temp Pulse Resp B/P Pulse Ox O2 Delivery O2 Flow Rate FiO2 10/26/16 15:32 99.8 89 16 159/83 94 10/26/16 11:00 99.4 89 16 145/81 99 Nasal Cannula 2 10/26/16 10:00 93 16 147/77 94 Nasal Cannula 2 10/26/16 09:00 88 17 138/72 99 Nasal Cannula 2 10/26/16 08:51 95 Nasal Cannula 2.00 10/26/16 08:44 15 93 Room Air 10/26/16 08:38 99.4 90 16 139/79 98 10/26/16 08:35 89 15 93 Room Air Physical Exam GENERAL: This is a well-nourished, well-developed patient, in no apparent distress. SKIN: No rashes, ecchymoses or lesions. Cool and dry. HEAD: Atraumatic. Normocephalic. No temporal or scalp tenderness. EYES: Pupils equal round and reactive. Extraocular motions intact. No scleral icterus. No injection or drainage. ENT: Nose without bleeding, purulent drainage or septal hematoma. Throat without erythema, tonsillar hypertrophy or exudate. Uvula midline. Airway patent. NECK: Trachea midline. No JVD or lymphadenopathy. Supple, nontender, no meningeal signs. CARDIOVASCULAR: Regular rate and rhythm without murmurs, gallops, or rubs. RESPIRATORY: Clear to auscultation. Breath sounds equal bilaterally. No wheezes , rales, or rhonchi. GASTROINTESTINAL: Abdomen soft, non-tender, nondistended. No hepato-splenomegaly , or palpable masses. No guarding. MUSCULOSKELETAL: Extremities without clubbing, cyanosis, or edema. No joint tenderness, effusion, or edema noted. No calf tenderness. Negative Homans sign bilaterally. NEUROLOGICAL: Awake and alert. Cranial nerves II through XII intact. Motor and sensory grossly within normal limits. Five out of 5 muscle strength in all muscle groups. Normal speech. Laboratory Laboratory Tests Test 10/26/16 10/26/16 08:45 08:51 White Blood Count 13.8 Red Blood Count 4.37 Hemoglobin 12.4 Hematocrit 37.5 Mean Corpuscular Volume 85.8 Mean Corpuscular Hemoglobin 28.4 Mean Corpuscular Hemoglobin 33.1 Concent Red Cell Distribution Width 17.4 Platelet Count 156 Mean Platelet Volume 8.4 Neutrophils (%) (Auto) 76.3 Lymphocytes (%) (Auto) 10.6 Monocytes (%) (Auto) 12.7 Eosinophils (%) (Auto) 0.2 Basophils (%) (Auto) 0.2 Neutrophils # (Auto) 10.5 Lymphocytes # (Auto) 1.5 Monocytes # (Auto) 1.8 Eosinophils # (Auto) 0.0 Basophils # (Auto) 0.0 CBC Comment DIFF FINAL Differential Comment Prothrombin Time 12.7 Prothromb Time International 1.1 Ratio Activated Partial 32.5 Thromboplast Time Sodium Level 139 Potassium Level 3.6 Chloride Level 106 Carbon Dioxide Level 23.8 Anion Gap 9 Blood Urea Nitrogen 14 Creatinine 1.16 Estimat Glomerular Filtration 67 Rate Random Glucose 95 Lactic Acid Level 1.4 Calcium Level 9.1 Magnesium Level 1.5 Total Bilirubin 0.8 Aspartate Amino Transf 29 (AST/SGOT) Alanine Aminotransferase 24 (ALT/SGPT) Alkaline Phosphatase 89 Total Creatine Kinase 977 Creatine Kinase MB 2.8 Creatine Kinase MB % 0.3 Troponin I LESS THAN 0.02 Total Protein 6.9 Albumin 2.5 Lipase 83 Blood Gas Puncture Site RT RADIAL Blood Gas Patient Temperature 98.6 Blood Gas HCO3 24 Blood Gas Base Excess 0.2 Blood Gas Oxygen Saturation 94 Arterial Blood pH 7.45 Arterial Blood Partial 35 Pressure CO2 Arterial Blood Partial 86 Pressure O2 Arterial Blood Oxygen Content 15.7 Arterial Blood 1.7 Carboxyhemoglobin Arterial Blood Methemoglobin 1.0 Blood Gas Hemoglobin 11.8 Oxygen Delivery Device NASAL CANNULA Blood Gas Liter Flow 2 Date/Time Procedure Status Source Growth 10/26/16 11:45 Influenza Types A,B Antigen ([facility]LL) - Final Complete Nasal Washing NEGATIVE FOR FLU A AND B ANTIGEN.... 10/26/16 08:50 Aerobic Blood Culture Received Blood Peripheral Pending 10/26/16 08:50 Anaerobic Blood Culture Received Blood Peripheral Pending Result Diagram: 10/26/16 0845 10/26/1645 Imaging Last Impressions Chest X-Ray 10/26/16841 Signed Impressions: Service Date/Time: Wednesday, October 26, 2016 08:47 - CONCLUSION: Questionable small infiltrate in right lung base laterally. Left lung is clear. Dewey Madsen MD Septic Shock Reassessment Heart: Regular rate and rhythm Lungs: Clear Skin: Warm Peripheral Pulses: Bounding Right Radial Bounding Left Radial Bounding Right Popliteal Bounding Left Popliteal Bounding Right Dorsalis Pedis Bounding Left Dorsalis Pedis Bounding Right Posterior Tibial Bounding Left Posterior Tibial Capillary Refill: Brisk Assessment and Plan Problem List: (1) Fever Status: Acute Plan: - CXR (10/26/16) --> small, possible infiltrate at right lung base - UA pending - blood culture pending - Rocephin & azithromycin - obtain HIV antibody screening - obtain monospot - observe (2) Bipolar depression Status: Chronic Plan: - seropquel, latuda, depakote (3) HTN (hypertension) Status: Chronic (4) Diabetes mellitus type 2, insulin dependent Status: Chronic Plan: - continue insulin pump (5) Hypothyroid Status: Acute Plan: - s/p thyroidectomy for thyroid CA - levothyroxine (6) Rheumatoid arthritis Status: Chronic Problem Qualifiers (1) Fever: Qualified Code: R50.9 - Fever, unspecified fever cause (2) Hypothyroid: Qualified Code: E03.9 - Acquired hypothyroidism Camron Tiwari DO Oct 26, 2016 16:54
[2016-10-26] MEDS ORDERED: IOHEXOL 350 MG/ML 10 ML VIAL (for RAD DIAG) IV ONE (19:12)
--- NOTE | 2016-10-26 19:31 | RADRPT ---
EXAM DATE/TIME: 10/26/2016 19:15 [facility] COMPARISON: CT THORAX W CONTRAST, February 13, 2013, 16:47. INDICATIONS : History of cavitary lesion. IV CONTRAST: 70 cc Omnipaque 350 (iohexol) IV RADIATION DOSE: CTDIvol (mGy) MEDICAL HISTORY : Cardiovascular disease. Rheumatoid arthritis. Gastroesophageal reflux disease.Hypertension. Thyroid c ancer. Diabetes. SURGICAL HISTORY : Cholecystectomy. Thyroidectomy.Gastric sleeve. Lumbar fusion. Spinal stimulator. ENCOUNTER: Initial ACUITY: 1 day PAIN SCALE: 0/10 LOCATION: Bilateral chest TECHNIQUE: Volumetric scanning of the chest was performed. Using automated exposure control and adjustment of t he mA and/or kV according to patient size, radiation dose was kept as low as reasonably achievable to obtain optimal diagnostic quality images. DICOM format image data is available electronically for review and comparison. FINDINGS: LUNGS: The previously noted cavitary mass in the posterior right upper lobe has cleared with apparent mild s carring. No new areas of consolidation in the right lower lobe with mild air bronchograms. The larges t is located along the lateral lung base and measures up to 4 cm in diameter. There is mild scarring in the left lung. PLEURA: There are minimal pleural fluid collections posteriorly. MEDIASTINUM: The heart and great vessels demonstrate no acute abnormality. There is no mediastinal or hilar lymph adenopathy. AXILLAE: Within normal limits. No lymphadenopathy. SKELETAL: Within normal limits for patient age. MISCELLANEOUS: The visualized upper abdominal organs demonstrate no acute abnormality. There is fatty infiltration o f liver. The patient is status post cholecystectomy. There are postsurgical changes involving the sto mach. CONCLUSION: 1. Interval resolution of previously noted cavitary mass in the posterior right upper lobe with appar ent mild scarring in this region. 2. New areas of consolidation in the right lower lobe may be infectious or inflammatory. Francis Smith MD on October 26, 2016 at 19:26 Board Certified Radiologist. This report was verified electronically.
[2016-10-26] MEDS: DIVALPROEX SODIUM E.R. 500 MG TAB PO SCH (20:33)
[2016-10-26] MEDS: SODIUM CHLORIDE 0.9% FLUSH 10 ML FLUSH IV FLUSH SCH (20:34)
[2016-10-26 20:47] LABS: BLOOD, URINE NEG (NEG); COMMENT (UR) CATH-CULT NOT IND; CULTURE IF INDICATED CATH CULTURE NOT IND; GLUCOSE,URINE 300 mg/dL (NEG); KETONE, URINE TRACE mg/dL (NEG); MUCUS URINE FEW /lpf (OCC); NITRITE,URINE NEG (NEG); SQUAMOUS EPITHELIAL CELL URINE <1 /hpf (0-5); URINE COLOR DARK-YELLOW (YELLW/STRAW)
[2016-10-26] MEDS: QUEtiapine FUMARATE 25 MG TAB PO SCH (21:29)
[2016-10-27] VITALS (7 sets, daily range): BP systolic 119–154; BP diastolic 72–86; PULSE 80–94; RESP 16–20; TEMP 97.7–100.3; O2SAT 93–96
[2016-10-27] MEDS: MORPHINE SULFATE 15 MG CONTROLLED RELEASE TAB PO SCH ×3 (00:25→22:40)
[2016-10-27] MEDS: 1/2 NS + KCL 20 MEQ INJ 1,000 ML IV SCH ×4 (00:34→17:25)
[2016-10-27] MEDS: LEVOTHYROXINE SODIUM 125 MCG TAB PO SCH (06:04)
[2016-10-27] MEDS: INSULIN ASPART SUPPLEMENTAL SCALE SQ SCH ×4 (06:11→21:07)
[2016-10-27] MEDS ORDERED: cefTRIAXone INJ 1,000 MG in SODIUM CHLORIDE 0.9% INJ 100 ML IV SCH (08:00)
[2016-10-27 08:25] LABS: AUTOMATED NEUTROPHIL # 7.2 TH/MM3 (1.8-7.7); BASOPHIL % 0.3 % (0.0-2.0); EOSINOPHIL % 0.5 % (0.0-4.0); HEMO FLAGS DIFF FINAL; LYMPH % 9.9 % (9.0-44.0); LYMPHOCYTE # 0.9 TH/MM3 (1.0-4.8); MEAN CELL VOLUME 84.8 FL (80.0-100.0); MEAN CORPUSCULAR HEMOGLOBIN 28.9 PG (27.0-34.0); MEAN CORPUSCULAR HGB CONC 34.1 % (32.0-36.0); MONO % 9.9 % (0.0-8.0); NEUT % 79.4 % (16.0-70.0); PLATELET COUNT 135 TH/MM3 (150-450); RED CELL DISTRIBUTION WIDTH 16.9 % (11.6-17.2); WHITE BLOOD COUNT 9.1 TH/MM3 (4.0-11.0)
[2016-10-27] MEDS: METOPROLOL TARTRATE 100 MG TAB PO SCH ×2 (08:26→21:04)
[2016-10-27] MEDS: PANTOPRAZOLE SOD 40 MG DELAYED RELEASE TAB PO SCH ×2 (08:26→21:03)
[2016-10-27] MEDS: SPIRONOLACTONE 100 MG TAB PO SCH ×2 (08:26→21:04)
[2016-10-27] MEDS: GABAPENTIN 400 MG CAP PO SCH ×3 (08:26→18:17)
[2016-10-27] MEDS: ASPIRIN EC 81 MG TABEC PO SCH (08:26)
[2016-10-27] MEDS: LIOTHYRONINE SODIUM 5 MCG TAB PO SCH ×2 (08:27→21:04)
[2016-10-27] MEDS: FLUTICASONE 200 MCG/VILANTEROL 25 MCG INHALER INH SCH (08:29)
[2016-10-27] MEDS: SODIUM CHLORIDE 0.9% FLUSH 10 ML FLUSH IV FLUSH SCH ×2 (08:59→21:00)
[2016-10-27] MEDS: MELOXICAM 15 MG TAB PO SCH (08:59)
[2016-10-27] MEDS: LURASIDONE 40 MG TAB PO SCH (08:59)
[2016-10-27] MEDS ORDERED: AZITHROMYCIN 250 MG TAB PO SCH (09:00)
[2016-10-27 09:05] LABS: BICARBONATE 26.5 MEQ/L (21.0-32.0); POTASSIUM 3.8 MEQ/L (3.5-5.1)
[2016-10-27] MEDS: DOCUSATE SODIUM 100 MG CAP PO SCH ×2 (09:45→21:04)
[2016-10-27 09:50] LABS: CKMB 1.3 NG/ML (0.5-3.6)
--- NOTE | 2016-10-27 09:51 | HHI.PR ---
Subjective Remarks Pt still febrile this morning Overall feels very weak Pt reports that he has right sided chest wall pain with coughing/deep breathing. His cough is more productive today He has not had a BM since 10/24/16, some nausea, minimal flatus Pt has not been able to eat much over the last 2-3 weeks due to early satiety and heartburn Objective Vitals Vital Signs Date Time Temp Pulse Resp B/P Pulse Ox O2 Delivery O2 Flow Rate FiO2 10/27/16 09:05 99.5 89 20 133/86 93 10/27/16 04:58 99.8 94 18 137/81 96 10/27/16 00:32 20 10/27/16 00:30 100.3 86 20 119/72 10/26/16 21:18 102.8 103 18 131/78 94 10/26/16 17:02 102.1 10/26/16 15:32 99.8 89 16 159/83 94 10/26/16 11:00 99.4 89 16 145/81 99 Nasal Cannula 2 10/26/16 10:00 93 16 147/77 94 Nasal Cannula 2 10/26/16 10/26/16 10/27/16 15:00 23:00 07:00 Intake Total 875 ml Balance 875 ml Intake Oral 375 ml IV Total 500 ml Result Diagram: 10/27/16 0811 10/27/16 0811 Other Results Laboratory Tests Test 10/26/16 10/26/16 10/26/16 10/26/16 08:45 08:51 20:07 21:30 White Blood Count 13.8 TH/MM3 Red Blood Count 4.37 MIL/MM3 Hemoglobin 12.4 GM/DL Hematocrit 37.5 % Mean Corpuscular Volume 85.8 FL Mean Corpuscular Hemoglobin 28.4 PG Mean Corpuscular Hemoglobin 33.1 % Concent Red Cell Distribution Width 17.4 % Platelet Count 156 TH/MM3 Mean Platelet Volume 8.4 FL Neutrophils (%) (Auto) 76.3 % Lymphocytes (%) (Auto) 10.6 % Monocytes (%) (Auto) 12.7 % Eosinophils (%) (Auto) 0.2 % Basophils (%) (Auto) 0.2 % Neutrophils # (Auto) 10.5 TH/MM3 Lymphocytes # (Auto) 1.5 TH/MM3 Monocytes # (Auto) 1.8 TH/MM3 Eosinophils # (Auto) 0.0 TH/MM3 Basophils # (Auto) 0.0 TH/MM3 CBC Comment DIFF FINAL Differential Comment Prothrombin Time 12.7 SEC Prothromb Time International 1.1 RATIO Ratio Activated Partial 32.5 SEC Thromboplast Time Sodium Level 139 MEQ/L Potassium Level 3.6 MEQ/L Chloride Level 106 MEQ/L Carbon Dioxide Level 23.8 MEQ/L Anion Gap 9 MEQ/L Blood Urea Nitrogen 14 MG/DL Creatinine 1.16 MG/DL Estimat Glomerular Filtration 67 ML/MIN Rate Random Glucose 95 MG/DL Lactic Acid Level 1.4 mmol/L Calcium Level 9.1 MG/DL Magnesium Level 1.5 MG/DL Total Bilirubin 0.8 MG/DL Aspartate Amino Transf 29 U/L (AST/SGOT) Alanine Aminotransferase 24 U/L (ALT/SGPT) Alkaline Phosphatase 89 U/L Total Creatine Kinase 977 U/L Creatine Kinase MB 2.8 NG/ML Creatine Kinase MB % 0.3 % Troponin I LESS THAN 0.02 NG/ML Total Protein 6.9 GM/DL Albumin 2.5 GM/DL Lipase 83 U/L Blood Gas Puncture Site RT RADIAL Blood Gas Patient Temperature 98.6 Blood Gas HCO3 24 mmol/L Blood Gas Base Excess 0.2 mmol/L Blood Gas Oxygen Saturation 94 % Arterial Blood pH 7.45 Arterial Blood Partial 35 mmHg Pressure CO2 Arterial Blood Partial 86 mmHG Pressure O2 Arterial Blood Oxygen Content 15.7 Vol % Arterial Blood 1.7 % Carboxyhemoglobin Arterial Blood Methemoglobin 1.0 % Blood Gas Hemoglobin 11.8 G/DL Oxygen Delivery Device NASAL CANNULA Blood Gas Liter Flow 2 L/M Urine Color DARK-YELLOW Urine Turbidity HAZY Urine pH 6.0 Urine Specific [place] 1.037 Urine Protein 30 mg/dL Urine Glucose (UA) 300 mg/dL Urine Ketones TRACE mg/dL Urine Occult Blood NEG Urine Nitrite NEG Urine Bilirubin NEG Urine Urobilinogen 2.0 MG/DL Urine Leukocyte Esterase NEG Urine RBC 2 /hpf Urine WBC 1 /hpf Urine Squamous Epithelial <1 /hpf Cells Urine Amorphous Sediment RARE Urine Mucus FEW /lpf Microscopic Urinalysis Comment CATH-CULT NOT IND Monoscreen NEG Test 10/27/16 08:11 White Blood Count 9.1 TH/MM3 Red Blood Count 4.00 MIL/MM3 Hemoglobin 11.6 GM/DL Hematocrit 34.0 % Mean Corpuscular Volume 84.8 FL Mean Corpuscular Hemoglobin 28.9 PG Mean Corpuscular Hemoglobin 34.1 % Concent Red Cell Distribution Width 16.9 % Platelet Count 135 TH/MM3 Mean Platelet Volume 8.6 FL Neutrophils (%) (Auto) 79.4 % Lymphocytes (%) (Auto) 9.9 % Monocytes (%) (Auto) 9.9 % Eosinophils (%) (Auto) 0.5 % Basophils (%) (Auto) 0.3 % Neutrophils # (Auto) 7.2 TH/MM3 Lymphocytes # (Auto) 0.9 TH/MM3 Monocytes # (Auto) 0.9 TH/MM3 Eosinophils # (Auto) 0.0 TH/MM3 Basophils # (Auto) 0.0 TH/MM3 CBC Comment DIFF FINAL Differential Comment Sodium Level 140 MEQ/L Potassium Level 3.8 MEQ/L Chloride Level 105 MEQ/L Carbon Dioxide Level 26.5 MEQ/L Anion Gap 9 MEQ/L Blood Urea Nitrogen 10 MG/DL Creatinine 0.88 MG/DL Estimat Glomerular Filtration 92 ML/MIN Rate Random Glucose 205 MG/DL Calcium Level 8.5 MG/DL Total Creatine Kinase 573 U/L Imaging Last Impressions Chest X-Ray 10/26/16 0842 Signed Impressions: Service Date/Time: Wednesday, October 26, 2016 08:47 - CONCLUSION: Questionable small infiltrate in right lung base laterally. Left lung is clear. Dewey Madsen MD Chest CT 10/26/16 0000 Signed Impressions: Service Date/Time: Wednesday, October 26, 2016 19:15 - CONCLUSION: 1. Interval resolution of previously noted cavitary mass in the posterior right upper lobe with apparent mild scarring in this region. 2. New areas of consolidation in the right lower lobe may be infectious or inflammatory. Francis Smith MD Objective Remarks General: NAD, AAOx3 Chest: Right lower chest crackles Cardiac: Regular Abd: +BS, soft mildly distended, nontender Ext: No edema A/P Problem List: (1) Fever Status: Acute Plan: - Pt admitted on 10/26/16 with generalized weakness, cough, and fevers - CXR (10/26/16) --> small, possible infiltrate at right lung base - Chest CT (10/26/16) --> Interval resolution of previously noted cavitary mass in the posterior right upper lobe with apparent mild scarring in this region. New areas of consolidation in the right lower lobe may be infectious or inflammatory. - Blood culture (10/26/16) pending - Pt was started on Rocephin & azithromycin - HIV antibody screening pending - Monospot negative. - Influenza Ag negative. - Sputum culture - Add Mucinex - observe (2) Early satiety Status: Acute Plan: - Pt with hx of gastric sleeve surgery - Complains of early satiety over the last 2-3 weeks and increased GERD symptoms. - Pts last EGD/colonoscopy was 05/16/2016 --> nodular gastritis in the gastric antrum, gastric sleeve, and multiple polyps and hemorrhoids. - Pt requesting GI consultation for further evaluation of the early satiety - Cont. PPI (3) Bipolar depression Status: Chronic Plan: - Cont. seropquel, latuda, depakote (4) HTN (hypertension) Status: Chronic Plan: - Cont. home meds (5) Diabetes mellitus type 2, insulin dependent Status: Chronic Plan: - continue insulin pump (6) Hypothyroid Status: Acute Plan: - s/p thyroidectomy for thyroid CA - levothyroxine (7) Rheumatoid arthritis Status: Chronic Assessment and Plan Patient examined. Assessment and plan formulated with Heike Castro PA-C. I agree with the above. pt says he has early satiety and regurgitating alot of food and liquids. even awakening from sleep couging. ct chest shows right lower lobe pna most likely aspiration pna. Pt has a gastric sleeve. will consult GI. convert abx to zosyn. left shoulder pain. xray. unable to do mri. Problem Qualifiers (1) Fever: Qualified Code: R50.9 - Fever, unspecified fever cause (2) Hypothyroid: Qualified Code: E03.9 - Acquired hypothyroidism Heike Castro Oct 27, 2016 09:51 Anthony Glover MD Oct 27, 2016 13:17
--- NOTE | 2016-10-27 11:32 | RADRPT ---
EXAM DATE/TIME: 10/27/2016 10:49 [facility] COMPARISON: No previous studies available for comparison. INDICATIONS : Nausea MEDICAL HISTORY : Cardiovascular disease. Rheumatoid arthritis. Gastroesophageal reflux disease.Hypertension.Thyroid ca ncer. Diabetes SURGICAL HISTORY : Cholecystectomy. Thyroidectomy.Gastric sleeve. Lumbar fusion. Spinal stimulator. ENCOUNTER: Initial ACUITY: 1 day PAIN SCORE: 0/10 LOCATION: Bilateral Abdomen FINDINGS: The bowel gas is nonspecific. There are no signs of obstruction or free air for technique. No defini te calcified stones are identified for technique. There are postsurgical changes involving the lower lumbosacral spine with spinal similar tip overlapping the lower thoracic spine. CONCLUSION: Nonspecific abdomen. Jackie Huitron MD on October 27, 2016 at 11:10 Board Certified Radiologist. This report was verified electronically.
[2016-10-27] MEDS: PIPERACIL-TAZO 3.375 GM PREMIX 50 ML IV SCH ×2 (16:23→22:41)
--- NOTE | 2016-10-27 16:43 | RADRPT ---
EXAM DATE/TIME: 10/27/2016 15:52 [facility] COMPARISON: No previous studies available for comparison. INDICATIONS : Left shoulder pain, denies injury MEDICAL HISTORY : Hypercholesterolemia. Rheumatoid arthritis. Hypertension. Hyperlipidemia. SURGICAL HISTORY : Cholecystectomy. Fusion, lumbar ENCOUNTER: Initial ACUITY: 3 days PAIN SCORE: 5/10 LOCATION: Left Shoulder FINDINGS: No definite fractures, or dislocations are identified. No definite lytic or sclerotic lesion is seen . The joint space is well maintained. CONCLUSION: Unremarkable study. Jackie Huitron MD on October 27, 2016 at 16:40 Board Certified Radiologist. This report was verified electronically.
[2016-10-27] MEDS: ACETAMINOPHEN 325 MG TAB PO PRN (21:03)
[2016-10-27] MEDS: QUEtiapine FUMARATE 25 MG TAB PO SCH (21:04)
[2016-10-27] MEDS: DIVALPROEX SODIUM E.R. 500 MG TAB PO SCH (21:04)
[2016-10-28 01:59] VITALS: BP 138/82; PULSE 73; RESP 20; TEMP 98.8; O2SAT 97
[2016-10-28] MEDS: PIPERACIL-TAZO 3.375 GM PREMIX 50 ML IV SCH ×3 (03:11→21:08)
[2016-10-28] MEDS: 1/2 NS + KCL 20 MEQ INJ 1,000 ML IV SCH ×3 (03:12→13:18)
[2016-10-28] MEDS: LEVOTHYROXINE SODIUM 125 MCG TAB PO SCH (06:08)
[2016-10-28] MEDS: INSULIN ASPART SUPPLEMENTAL SCALE SQ SCH ×4 (06:30→21:13)
[2016-10-28 06:46] VITALS: BP 149/90; PULSE 79; RESP 20; TEMP 99.1; O2SAT 96
[2016-10-28 08:00] VITALS: BP 132/79; PULSE 80; RESP 18; TEMP 97.1; O2SAT 93
[2016-10-28] MEDS: FLUTICASONE 200 MCG/VILANTEROL 25 MCG INHALER INH SCH (09:00)
[2016-10-28] MEDS: DOCUSATE SODIUM 100 MG CAP PO SCH ×2 (09:00→21:09)
[2016-10-28] MEDS: SODIUM CHLORIDE 0.9% FLUSH 10 ML FLUSH IV FLUSH SCH ×2 (09:00→21:00)
[2016-10-28] MEDS: GABAPENTIN 400 MG CAP PO SCH ×3 (09:01→17:30)
[2016-10-28] MEDS: LURASIDONE 40 MG TAB PO SCH (09:01)
[2016-10-28] MEDS: LIOTHYRONINE SODIUM 5 MCG TAB PO SCH ×2 (09:01→21:09)
[2016-10-28] MEDS: MELOXICAM 15 MG TAB PO SCH (09:02)
[2016-10-28] MEDS: ASPIRIN EC 81 MG TABEC PO SCH (09:02)
[2016-10-28] MEDS: PANTOPRAZOLE SOD 40 MG DELAYED RELEASE TAB PO SCH ×2 (09:04→21:09)
[2016-10-28] MEDS: METOPROLOL TARTRATE 100 MG TAB PO SCH ×2 (09:04→21:09)
[2016-10-28] MEDS: SPIRONOLACTONE 100 MG TAB PO SCH ×2 (09:04→21:09)
[2016-10-28] MEDS: MORPHINE SULFATE 15 MG CONTROLLED RELEASE TAB PO SCH ×2 (10:25→22:42)
[2016-10-28] MEDS ORDERED: VANCOMYCIN INJ 1,000 MG in SODIUM CHLOR 0.9% 250 ML INJ 250 ML IV ONE (12:15)
[2016-10-28] MEDS ORDERED: Vancomycin Consult Pharmacy 1 EA OTHER SCH (12:15)
[2016-10-28 13:07] VITALS: BP 132/87; PULSE 74; RESP 20; TEMP 99.7; O2SAT 95
[2016-10-28] MEDS: VANCOMYCIN INJ 1,750 MG in SODIUM CHLORID 0.9% 500 ML INJ 500 ML IV SCH (14:00)
--- NOTE | 2016-10-28 14:11 | PD.CONS ---
HPI History of Present Illness This is a 50 year old male with hx HTN, hypothyroid, DM, DM nephropathy, RA who presented to hospital with complaints of fever for 3d. GI has been consulted for his complaints of early satiety. He has been having early satiety, after just a few bites of food, for the last 3months. He had EGD/colonoscopy 04/2016 - -> nodular gastritis antrum, polyps, hemorrhoids; at that time he was not yet having early satiety. KUB on 10-27 was nonspecific. He has also had worsening GERD, for which he takes a PPI at home. He was scheduled to see Dr Almazan but ended up in hospital. He has also been having softer BMs than usual for the last 3m. He does have hx bariatric surgery in 2014. PFSH Past Medical History bipolar GERD HTN hypothyroid DM DM nephropathy RA drug induced parkinsons Past Surgical History bariatric surgery Cardiac catheter reportedly negative Cholecystectomy Circumcision due to phimosis Lumbar laminectomy Gastric bypass surgery for morbid obesity Multiple lumbar paravertebral blocks Rhizotomy Spinal neurostimulator placement Vasectomy Total thyroidectomy L4 to S1 fusion Coded Allergies: Calcium Channel Blockers (Verified Allergy, Mild, Edema, 10/15/16) Enalapril (Verified Allergy, Mild, Cough, 10/15/16) Questran (Verified Allergy, Mild, NAUSEA, 10/15/16) HMG-CoA Reductase Inhibitors (Verified Allergy, Unknown, enlarged liver, ) Family History pancreatic cancer Social History rare ETOH, no tobacco or illicit drug use Review of Systems Constitutional: COMPLAINS OF: Fever Eyes: DENIES: Blurred vision Ears, nose, mouth, throat: DENIES: Hearing loss Respiratory: DENIES: Hemoptysis Cardiovascular: DENIES: Chest pain Gastrointestinal: DENIES: Abdominal pain, Black stools, Bloody stools, Constipation, Diarrhea, Nausea, Vomiting, Difficulty Swallowing, Odynophagia, Hematemesis Genitourinary: DENIES: Urinary incontinence Musculoskeletal: DENIES: Joint Swelling Integumentary: DENIES: Pruritus Neurologic: DENIES: Abnormal gait Psychiatric: DENIES: Confusion GI Exam Vitals I&O Vital Signs Date Time Temp Pulse Resp B/P Pulse Ox O2 Delivery O2 Flow Rate FiO2 10/28/16 13:07 99.7 74 20 132/87 95 10/28/16 08:00 97.1 80 18 132/79 93 10/28/16 06:46 99.1 79 20 149/90 96 10/28/16 01:59 98.8 73 20 138/82 97 10/27/16 22:41 99.7 10/27/16 21:29 100.0 88 20 154/85 95 10/27/16 16:00 98.1 88 18 128/75 94 I/O 10/27/16 10/27/16 10/27/16 10/28/16 10/28/16 10/28/16 07:00 15:00 23:00 07:00 15:00 23:00 Intake Total 1100 ml 1200 ml Balance 1100 ml 1200 ml Intake Oral 1100 ml IV Total 1200 ml # Bowel Movements 1 Imaging Last Impressions Shoulder X-Ray 10/27/16 0000 Signed Impressions: Service Date/Time: Thursday, October 27, 2016 15:52 - CONCLUSION: Unremarkable study. Jackie Huitron MD Abdomen X-Ray 10/27/16 0000 Signed Impressions: Service Date/Time: Thursday, October 27, 2016 10:49 - CONCLUSION: Nonspecific abdomen. Jackie Huitron MD Chest X-Ray 10/26/16 0842 Signed Impressions: Service Date/Time: Wednesday, October 26, 2016 08:47 - CONCLUSION: Questionable small infiltrate in right lung base laterally. Left lung is clear. Dewey Madsen MD Chest CT 10/26/16 0000 Signed Impressions: Service Date/Time: Wednesday, October 26, 2016 19:15 - CONCLUSION: 1. Interval resolution of previously noted cavitary mass in the posterior right upper lobe with apparent mild scarring in this region. 2. New areas of consolidation in the right lower lobe may be infectious or inflammatory. Francis Smith MD Laboratory Date/Time Procedure Status Source Growth 10/27/16 13:42 Gram Stain - Final Resulted Sputum Expectorated Sputum 10/27/16 13:42 Sputum Culture - Preliminary Resulted S. Aureus Mrsa 10/26/16 11:45 Influenza Types A,B Antigen (MITCHELL) - Final Complete Nasal Washing NEGATIVE FOR FLU A AND B ANTIGEN.... 10/26/16 08:50 Aerobic Blood Culture - Preliminary Resulted Blood Peripheral NO GROWTH IN 2 DAYS 10/26/16 08:50 Anaerobic Blood Culture - Preliminary Resulted Blood Peripheral NO GROWTH IN 2 DAYS Physical Examination HEENT: PERRL; normocephalic; atraumatic; no jaundice. CHEST: CTA CARDIAC: RRR ABDOMEN: Soft, obese, nontender; no hepatosplenomegaly; bowel sounds are present in all four quadrants. EXTREMITIES: No clubbing, cyanosis, or edema. SKIN: Normal; no rash; no jaundice. 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 Assessment and Plan Plan ASSESSMENT - early satiety - for last 3m. full after 2 bites of food. EGD 04/2016 --> nodular gastritis, colonoscopy found polyps and hemorrhoids - GERD - takes PPI PLAN - EGD - obtain consents - NPO after midnight - further recommendations to follow - colonoscopy as outpatient This pt seen by myself and DR Bruce and this note is written on his behalf Beth Schmitt Oct 28, 2016 14:11
--- NOTE | 2016-10-28 14:15 | HHI.PR ---
Subjective Remarks no new problems Objective Vitals heart reg lung course bs worse right base abd s/nt ext no edema Vital Signs Date Time Temp Pulse Resp B/P Pulse Ox O2 Delivery O2 Flow Rate FiO2 10/28/16 13:07 99.7 74 20 132/87 95 10/28/16 08:00 97.1 80 18 132/79 93 10/28/16 06:46 99.1 79 20 149/90 96 10/28/16 01:59 98.8 73 20 138/82 97 10/27/16 22:41 99.7 10/27/16 21:29 100.0 88 20 154/85 95 10/27/16 16:00 98.1 88 18 128/75 94 10/27/16 10/27/16 10/28/16 15:00 23:00 07:00 Intake Total 1100 ml 1200 ml Balance 1100 ml 1200 ml Intake Oral 1100 ml IV Total 1200 ml Result Diagram: 10/27/16 0811 10/27/16 0811 Imaging Last Impressions Chest X-Ray 10/26/16 0842 Signed Impressions: Service Date/Time: Wednesday, October 26, 2016 08:47 - CONCLUSION: Questionable small infiltrate in right lung base laterally. Left lung is clear. Dewey Madsen MD Chest CT 10/26/16 0000 Signed Impressions: Service Date/Time: Wednesday, October 26, 2016 19:15 - CONCLUSION: 1. Interval resolution of previously noted cavitary mass in the posterior right upper lobe with apparent mild scarring in this region. 2. New areas of consolidation in the right lower lobe may be infectious or inflammatory. Francis Smith MD A/P Problem List: (1) Aspiration pneumonia Status: Acute Plan: - Pt admitted on 10/26/16 with generalized weakness, cough, and fevers - CXR (10/26/16) --> small, possible infiltrate at right lung base - Chest CT (10/26/16) --> Interval resolution of previously noted cavitary mass in the posterior right upper lobe with apparent mild scarring in this region. New areas of consolidation in the right lower lobe may be infectious or inflammatory. - Blood culture (10/26/16) ngtd -sputum cx mrsa - Pt was started on Rocephin & azithromycin. changed to zosyn will cover with vanco until cx final - GI eval and endoscopy as pt having alot of regurgitation and aspiration of food. - generally weak. plan for snf (2) Early satiety Status: Acute Plan: - Pt with hx of gastric sleeve surgery - Complains of early satiety over the last 2-3 weeks and increased GERD symptoms. - Pts last EGD/colonoscopy was 05/16/2016 --> nodular gastritis in the gastric antrum, gastric sleeve, and multiple polyps and hemorrhoids. - Pt requesting GI consultation for further evaluation of the early satiety - Cont. PPI (3) Bipolar depression Status: Chronic Plan: - Cont. seropquel, latuda, depakote (4) HTN (hypertension) Status: Chronic Plan: - Cont. home meds (5) Diabetes mellitus type 2, insulin dependent Status: Chronic Plan: - continue insulin pump (6) Hypothyroid Status: Acute Plan: - s/p thyroidectomy for thyroid CA - levothyroxine (7) Rheumatoid arthritis Status: Chronic Problem Qualifiers (1) Hypothyroid: Qualified Code: E03.9 - Acquired hypothyroidism Anthony Glover MD Oct 28, 2016 14:15
--- NOTE | 2016-10-28 14:21 | PD.PN.STU ---
Subjective Remarks Patient afebrile, complains of feeling feverish Feels weak diffusely, complains of myalgias. Has difficulty sitting up Right lower chest pain persistent, impacts deep breathing. MRSA positive RLL pneumonia Ceftriaxone/azithromycin d/c 10/27, started pip/tazo 10/27, added vancomycin for MRSA coverage Left shoulder pain persistent Objective Vitals Vital Signs Date Time Temp Pulse Resp B/P Pulse Ox O2 Delivery O2 Flow Rate FiO2 10/28/16 13:07 99.7 74 20 132/87 95 10/28/16 08:00 97.1 80 18 132/79 93 10/28/16 06:46 99.1 79 20 149/90 96 10/28/16 01:59 98.8 73 20 138/82 97 10/27/16 22:41 99.7 10/27/16 21:29 100.0 88 20 154/85 95 10/27/16 16:00 98.1 88 18 128/75 94 I/O 10/27/16 10/27/16 10/27/16 10/28/16 10/28/16 10/28/16 07:00 15:00 23:00 07:00 15:00 23:00 Intake Total 1100 ml 1200 ml Balance 1100 ml 1200 ml Intake Oral 1100 ml IV Total 1200 ml # Bowel Movements 1 Result Diagram: 10/27/16 0811 10/27/16 0811 Other Results Laboratory Tests Test 10/26/16 10/26/16 10/26/16 10/26/16 08:45 08:51 20:07 21:30 White Blood Count 13.8 TH/MM3 (4.0-11.0) Red Blood Count 4.37 MIL/MM3 (4.50-5.90) Hemoglobin 12.4 GM/DL (13.0-17.0) Hematocrit 37.5 % (39.0-51.0) Mean Corpuscular Volume 85.8 FL (80.0-100.0) Mean Corpuscular Hemoglobin 28.4 PG (27.0-34.0) Mean Corpuscular Hemoglobin 33.1 % Concent (32.0-36.0) Red Cell Distribution Width 17.4 % (11.6-17.2) Platelet Count 156 TH/MM3 (150-450) Mean Platelet Volume 8.4 FL (7.0-11.0) Neutrophils (%) (Auto) 76.3 % (16.0-70.0) Lymphocytes (%) (Auto) 10.6 % (9.0-44.0) Monocytes (%) (Auto) 12.7 % (0.0-8.0) Eosinophils (%) (Auto) 0.2 % (0.0-4.0) Basophils (%) (Auto) 0.2 % (0.0-2.0) Neutrophils # (Auto) 10.5 TH/MM3 (1.8-7.7) Lymphocytes # (Auto) 1.5 TH/MM3 (1.0-4.8) Monocytes # (Auto) 1.8 TH/MM3 (0-0.9) Eosinophils # (Auto) 0.0 TH/MM3 (0-0.4) Basophils # (Auto) 0.0 TH/MM3 (0-0.2) CBC Comment DIFF FINAL Differential Comment Prothrombin Time 12.7 SEC (9.8-11.6) Prothromb Time International 1.1 RATIO Ratio Activated Partial 32.5 SEC Thromboplast Time (24.3-30.1) Sodium Level 139 MEQ/L (136-145) Potassium Level 3.6 MEQ/L (3.5-5.1) Chloride Level 106 MEQ/L (98-107) Carbon Dioxide Level 23.8 MEQ/L (21.0-32.0) Anion Gap 9 MEQ/L (5-15) Blood Urea Nitrogen 14 MG/DL (7-18) Creatinine 1.16 MG/DL (0.60-1.30) Estimat Glomerular Filtration 67 ML/MIN (>89) Rate Random Glucose 95 MG/DL (74-106) Lactic Acid Level 1.4 mmol/L (0.4-2.0) Calcium Level 9.1 MG/DL (8.5-10.1) Magnesium Level 1.5 MG/DL (1.5-2.5) Total Bilirubin 0.8 MG/DL (0.2-1.0) Aspartate Amino Transf 29 U/L (15-37) (AST/SGOT) Alanine Aminotransferase 24 U/L (12-78) (ALT/SGPT) Alkaline Phosphatase 89 U/L (45-117) Total Creatine Kinase 977 U/L (39-308) Creatine Kinase MB 2.8 NG/ML (0.5-3.6) Creatine Kinase MB % 0.3 % (0.0-4.0) Troponin I LESS THAN 0.02 NG/ML (0.02-0.05) Total Protein 6.9 GM/DL (6.4-8.2) Albumin 2.5 GM/DL (3.4-5.0) Lipase 83 U/L (73-393) Blood Gas Puncture Site RT RADIAL Blood Gas Patient Temperature 98.6 Blood Gas HCO3 24 mmol/L (22-26) Blood Gas Base Excess 0.2 mmol/L (-2-2) Blood Gas Oxygen Saturation 94 % (90-100) Arterial Blood pH 7.45 (7.380-7.420) Arterial Blood Partial 35 mmHg (38-42) Pressure CO2 Arterial Blood Partial 86 mmHG Pressure O2 (61-120) Arterial Blood Oxygen Content 15.7 Vol % (12.0-20.0) Arterial Blood 1.7 % (0-4) Carboxyhemoglobin Arterial Blood Methemoglobin 1.0 % (0-2) Blood Gas Hemoglobin 11.8 G/DL (12.0-16.0) Oxygen Delivery Device NASAL CANNULA Blood Gas Liter Flow 2 L/M Urine Color DARK-YELLOW (YELLW/STRAW) Urine Turbidity HAZY (CLEAR) Urine pH 6.0 (5.0-8.5) Urine Specific [place] 1.037 (1.002-1.035) Urine Protein 30 mg/dL (NEG-TRACE) Urine Glucose (UA) 300 mg/dL (NEG) Urine Ketones TRACE mg/dL (NEG) Urine Occult Blood NEG (NEG) Urine Nitrite NEG (NEG) Urine Bilirubin NEG (NEG) Urine Urobilinogen 2.0 MG/DL (LESS THAN 2.0) Urine Leukocyte Esterase NEG (NEG) Urine RBC 2 /hpf (0-3) Urine WBC 1 /hpf (0-5) Urine Squamous Epithelial <1 /hpf (0-5) Cells Urine Amorphous Sediment RARE Urine Mucus FEW /lpf (OCC) Microscopic Urinalysis Comment CATH-CULT NOT IND Monoscreen NEG (NEG) HIV (1&2) Antibody NEGATIVE (NEGATIVE) Test 10/27/16 08:11 White Blood Count 9.1 TH/MM3 (4.0-11.0) Red Blood Count 4.00 MIL/MM3 (4.50-5.90) Hemoglobin 11.6 GM/DL (13.0-17.0) Hematocrit 34.0 % (39.0-51.0) Mean Corpuscular Volume 84.8 FL (80.0-100.0) Mean Corpuscular Hemoglobin 28.9 PG (27.0-34.0) Mean Corpuscular Hemoglobin 34.1 % Concent (32.0-36.0) Red Cell Distribution Width 16.9 % (11.6-17.2) Platelet Count 135 TH/MM3 (150-450) Mean Platelet Volume 8.6 FL (7.0-11.0) Neutrophils (%) (Auto) 79.4 % (16.0-70.0) Lymphocytes (%) (Auto) 9.9 % (9.0-44.0) Monocytes (%) (Auto) 9.9 % (0.0-8.0) Eosinophils (%) (Auto) 0.5 % (0.0-4.0) Basophils (%) (Auto) 0.3 % (0.0-2.0) Neutrophils # (Auto) 7.2 TH/MM3 (1.8-7.7) Lymphocytes # (Auto) 0.9 TH/MM3 (1.0-4.8) Monocytes # (Auto) 0.9 TH/MM3 (0-0.9) Eosinophils # (Auto) 0.0 TH/MM3 (0-0.4) Basophils # (Auto) 0.0 TH/MM3 (0-0.2) CBC Comment DIFF FINAL Differential Comment Sodium Level 140 MEQ/L (136-145) Potassium Level 3.8 MEQ/L (3.5-5.1) Chloride Level 105 MEQ/L (98-107) Carbon Dioxide Level 26.5 MEQ/L (21.0-32.0) Anion Gap 9 MEQ/L (5-15) Blood Urea Nitrogen 10 MG/DL (7-18) Creatinine 0.88 MG/DL (0.60-1.30) Estimat Glomerular Filtration 92 ML/MIN (>89) Rate Random Glucose 205 MG/DL (74-106) Calcium Level 8.5 MG/DL (8.5-10.1) Total Creatine Kinase 573 U/L (39-308) Creatine Kinase MB 1.3 NG/ML (0.5-3.6) Creatine Kinase MB % 0.2 % (0.0-4.0) Date/Time Procedure Status Source Growth 10/27/16 13:42 Gram Stain - Final Resulted Sputum Expectorated Sputum 10/27/16 13:42 Sputum Culture - Preliminary Resulted S. Aureus Mrsa 10/26/16 11:45 Influenza Types A,B Antigen (MITCHELL) - Final Complete Nasal Washing NEGATIVE FOR FLU A AND B ANTIGEN.... 10/26/16 08:50 Aerobic Blood Culture - Preliminary Resulted Blood Peripheral NO GROWTH IN 2 DAYS 10/26/16 08:50 Anaerobic Blood Culture - Preliminary Resulted Blood Peripheral NO GROWTH IN 2 DAYS Imaging Last 72 hours Impressions Shoulder X-Ray 10/27/16 0000 Signed Impressions: Service Date/Time: Thursday, October 27, 2016 15:52 - CONCLUSION: Unremarkable study. Jackie Huitron MD Abdomen X-Ray 10/27/16 0000 Signed Impressions: Service Date/Time: Thursday, October 27, 2016 10:49 - CONCLUSION: Nonspecific abdomen. Jackie Huitron MD Chest X-Ray 10/26/16 0842 Signed Impressions: Service Date/Time: Wednesday, October 26, 2016 08:47 - CONCLUSION: Questionable small infiltrate in right lung base laterally. Left lung is clear. Dewey Madsen MD Chest CT 10/26/16 0000 Signed Impressions: Service Date/Time: Wednesday, October 26, 2016 19:15 - CONCLUSION: 1. Interval resolution of previously noted cavitary mass in the posterior right upper lobe with apparent mild scarring in this region. 2. New areas of consolidation in the right lower lobe may be infectious or inflammatory. Francis Smith MD Objective Remarks Patient resting in no acute distress Right lower lung crackles w/ decreased breath sounds RRR no rubs murmurs gallops some bruising over left shoulder, pain on abduction approaching 90 degrees Medications and IVs Current Medications Medications (Trade) Dose Ordered Sig/Sally Route PRN Reason Start Time Stop Time Status Last Admin Dose Admin Sodium Chloride (NS Flush) 2 ml UNSCH PRN IV FLUSH FLUSH AFTER USING IV ACCESS 10/26/16 10:30 Sodium Chloride (NS Flush) 2 ml BID IV FLUSH 10/26/16 21:00 10/26/16 20:34 Acetaminophen (Tylenol) 650 mg Q4H PRN PO TEMP > 100.4 10/26/16 10:30 10/27/16 21:03 Ondansetron HCl (Zofran Inj) 4 mg Q6H PRN IVP NAUSEA OR VOMITING 10/26/16 10:30 Temazepam (Restoril) 15 mg HS PRN PO INSOMNIA 10/26/16 10:30 10/26/16 21:31 Naloxone HCl (Narcan Inj) 0.4 mg UNSCH PRN IV SEE LABEL COMMENTS 10/26/16 10:30 Magnesium Hydroxide 30 ml 30 ml Q12H PRN PO MILD - MODERATE CONSTIPATION 10/26/16 10:30 Potassium Chloride/Sodium Chloride (1/2 NS + KCl 20 Meq Inj) 1,000 ml @ 100 mls/hr Q10H IV 10/26/16 12:00 10/28/16 10:24 Albuterol Sulfate (Ventolin Hfa Inh) 2 puff Q4H PRN INH SHORTNESS OF BREATH 10/26/16 10:30 Aspirin (Ecotrin Ec) 81 mg DAILY PO 10/26/16 10:30 10/28/16 09:02 Divalproex Sodium (Depakote Er) 2,500 mg HS PO 10/26/16 21:00 10/27/16 21:04 Fluticasone/ Vilanterol (Breo Ellipta 200-25 Inh) 1 puff DAILY INH 10/26/16 10:30 10/28/16 09:00 Gabapentin (Neurontin) 800 mg TID PO 10/26/16 13:00 10/28/16 12:21 Levothyroxine Sodium (Synthroid) 250 mcg DAILY@06 PO 10/26/16 10:30 10/28/16 06:08 Liothyronine Sodium (Cytomel) 10 mcg BID PO 10/26/16 10:30 10/28/16 09:01 Lurasidone HCl (Latuda) 40 mg DAILY PO 10/26/16 10:30 10/28/16 09:01 Meloxicam (Mobic) 15 mg DAILY PO 10/26/16 10:30 10/28/16 09:02 Metoprolol Tartrate (Lopressor) 200 mg BID PO 10/26/16 10:30 10/28/16 09:04 Morphine Sulfate (Oramorph Sr) 15 mg Q12H PO 10/26/16 11:00 10/28/16 10:25 Pantoprazole Sodium (Protonix) 40 mg BID@08,20 PO 10/26/16 10:30 10/28/16 09:04 Quetiapine Fumarate (SEROquel) 125 mg HS PO 10/26/16 21:00 10/27/16 21:04 Spironolactone (Aldactone) 100 mg BID PO 10/26/16 10:30 10/28/16 09:04 Docusate Sodium 100 mg 100 mg BID PO 10/27/16 09:45 10/27/16 21:04 Piperacillin Sod/ Tazobactam Sod 50 ml @ 100 mls/hr Q6H IV 10/27/16 16:00 10/28/16 09:00 Pharmacy Profile Note 0 ml @ 0 mls/hr UNSCH OTHER 10/28/16 12:15 Vancomycin HCl/ Sodium Chloride (Vancomycin Inj/ NS 500 ml Inj) 517.5 ml @ 250 mls/hr Q12H IV 10/28/16 14:00 Miscellaneous Information SPECIFIC LAB TO BE DRAWN:VANCOMYCIN TROUGH DATE TO... ONCE ONCE .XX 10/30/16 01:45 10/30/16 01:46 A/P Assessment and Plan 1) Aspiration pneumonia Sputum culture positive for MRSA, treatment with pip/tazo and vancomycin, will adjust once sensitivities return If sensitive to oral agent, discharge home with said agent. Otherwise discharge home with PIC line Mucinex to aid clearance Once afebrile for 24hr, discharge to home 2) Left shoulder pain Xray shows no bony abnormalities Patient has pain with abduction of arm, likely soft tissues bruising and swelling Ice, PT, nsaid use for pain relief 3) Early satiety Status post gastric sleeve, experiencing regular reflux with confirmed aspiration Gastric pyloric stenosis likely, GI scoping for confirmation with possible intervention 4) Bipolar (chronic) Continue at home meds 5) Hypertension (chronic) Continue at home meds 6) Hypothyroid Status post thyroidectomy Continue at home meds 7) Rheumatoid arthritis (controlled) Continue at home meds Oliva Bernstein M3 Oct 28, 2016 14:21
[2016-10-28 16:00] VITALS: BP 129/84; PULSE 77; RESP 18; TEMP 98.5; O2SAT 98
[2016-10-28 20:00] VITALS: BP 135/77; PULSE 90; RESP 20; TEMP 101.5; O2SAT 95
[2016-10-28] MEDS ORDERED: SODIUM CHLORID 0.9% 500 ML IV PRN (20:15)
[2016-10-28] MEDS ORDERED: INSULIN HUMAN REGULAR 1,000 UNITS/10 ML VIAL SQ PRN (20:15)
[2016-10-28] MEDS ORDERED: CHLORHEXIDINE GLUCONATE 2 % 1 PACK (2 CLOTHS) TOPICAL PRN (20:15)
[2016-10-28] MEDS ORDERED: LACTATED RINGER'S 1000 ML IV PRN (20:15)
[2016-10-28] MEDS ORDERED: METOPROLOL TARTRATE 25 MG TAB PO PRN (20:15)
[2016-10-28] MEDS ORDERED: POVIDONE IODINE 5% (ANTISEPSIS KIT) 4 APPLICATIONS EACH NARE PRN (20:15)
[2016-10-28] MEDS: DIVALPROEX SODIUM E.R. 500 MG TAB PO SCH (21:08)
[2016-10-28] MEDS: ACETAMINOPHEN 325 MG TAB PO PRN (21:08)
[2016-10-28] MEDS: QUEtiapine FUMARATE 25 MG TAB PO SCH (21:10)
[2016-10-29 01:00] VITALS: BP 144/80; PULSE 77; RESP 22; TEMP 97.8; O2SAT 95
[2016-10-29] MEDS: 1/2 NS + KCL 20 MEQ INJ 1,000 ML IV SCH ×2 (01:03→22:15)
[2016-10-29] MEDS: PIPERACIL-TAZO 3.375 GM PREMIX 50 ML IV SCH ×2 (01:04→08:00)
[2016-10-29] MEDS: VANCOMYCIN INJ 1,750 MG in SODIUM CHLORID 0.9% 500 ML INJ 500 ML IV SCH (02:34)
[2016-10-29 04:00] VITALS: BP 138/80; PULSE 76; RESP 20; TEMP 97.7; O2SAT 98
[2016-10-29] MEDS: LEVOTHYROXINE SODIUM 125 MCG TAB PO SCH (05:30)
[2016-10-29] MEDS: INSULIN ASPART SUPPLEMENTAL SCALE SQ SCH ×4 (06:26→22:09)
[2016-10-29 07:58] VITALS: BP 155/83; PULSE 88; RESP 18; TEMP 98.7; O2SAT 96
[2016-10-29] MEDS: GABAPENTIN 400 MG CAP PO SCH ×3 (08:13→16:52)
[2016-10-29] MEDS: PANTOPRAZOLE SOD 40 MG DELAYED RELEASE TAB PO SCH ×2 (08:13→22:13)
[2016-10-29] MEDS: METOPROLOL TARTRATE 100 MG TAB PO SCH ×2 (08:13→22:13)
[2016-10-29] MEDS: DOCUSATE SODIUM 100 MG CAP PO SCH ×2 (08:13→22:16)
[2016-10-29] MEDS: SODIUM CHLORIDE 0.9% FLUSH 10 ML FLUSH IV FLUSH SCH ×2 (08:25→22:16)
[2016-10-29] MEDS: FLUTICASONE 200 MCG/VILANTEROL 25 MCG INHALER INH SCH (08:25)
[2016-10-29] MEDS: SPIRONOLACTONE 100 MG TAB PO SCH ×2 (08:42→22:13)
[2016-10-29] MEDS: LIOTHYRONINE SODIUM 5 MCG TAB PO SCH ×2 (08:42→22:13)
[2016-10-29] MEDS: MELOXICAM 15 MG TAB PO SCH (08:42)
[2016-10-29] MEDS: LURASIDONE 40 MG TAB PO SCH (08:42)
[2016-10-29] MEDS: ASPIRIN EC 81 MG TABEC PO SCH (08:42)
--- NOTE | 2016-10-29 10:41 | HHI.GIFU ---
Subjective Remarks Immediate postop note: EGD with biopsy Indication: Early satiety History of gastric sleeve surgery Meds: MAC Findings: Esophagus: normal. Stomach: normal post surgical anatomy in body. Antrum, gastritis. Biopsy taken. Pylorus normal Duodenum: normal Imp: Gastritis. No pyloric stenosis. Rec: await biopsy result. Resume usual diet. Objective Vitals I&O Vital Signs Date Time Temp Pulse Resp B/P Pulse Ox O2 Delivery O2 Flow Rate FiO2 10/29/16 07:58 98.7 88 18 155/83 96 10/29/16 04:00 97.7 76 20 138/80 98 10/29/16 01:00 97.8 77 22 144/80 95 10/28/16 20:00 101.5 90 20 135/77 95 10/28/16 16:00 98.5 77 18 129/84 98 10/28/16 13:07 99.7 74 20 132/87 95 I/O 10/28/16 10/28/16 10/28/16 10/29/16 10/29/16 10/29/16 07:00 15:00 23:00 07:00 15:00 23:00 Intake Total 1200 ml 480 ml 1000 ml Balance 1200 ml 480 ml 1000 ml Intake Oral 480 ml IV Total 1200 ml 1000 ml # Voids 2 1 # Bowel Movements 2 Laboratory Date/Time Procedure Status Source Growth 10/27/16 13:42 Gram Stain - Final Complete Sputum Expectorated Sputum 10/27/16 13:42 Sputum Culture - Final Complete S. Aureus Mrsa 10/26/16 11:45 Influenza Types A,B Antigen (MITCHELL) - Final Complete Nasal Washing NEGATIVE FOR FLU A AND B ANTIGEN.... 10/26/16 08:50 Aerobic Blood Culture - Preliminary Resulted Blood Peripheral NO GROWTH IN 2 DAYS 10/26/16 08:50 Anaerobic Blood Culture - Preliminary Resulted Blood Peripheral NO GROWTH IN 2 DAYS Physical Exam HEENT: Pupils round and reactive to light; normocephalic; atraumatic; no jaundice. Throat is clear. NECK: Neck is supple, no JVD, no lymphadenopathy. CHEST: Chest is clear to auscultation and percussion. CARDIAC: Regular rate and rhythm with no murmur gallop or rubs. ABDOMEN: Soft, nondistended, nontender; no hepatosplenomegaly; bowel sounds are present in all four quadrants. EXTREMITIES: No clubbing, cyanosis, or edema. SKIN: Normal; no rash; no jaundice. MOLD INSPECTOR: No focal deficits; alert and oriented times three. Assessment and Plan Plan ASSESSMENT - early satiety - for last 3m. full after 2 bites of food. EGD 04/2016 --> nodular gastritis, colonoscopy found polyps and hemorrhoids - GERD - takes PPI PLAN - EGD today showed gastritis. Otherwise normal post gastric sleeve anatomy - Resume diet. - further recommendations to follow - colonoscopy as outpatient Jake Bruce MD Oct 29, 2016 10:41
[2016-10-29] MEDS ORDERED: PROPOFOL 200 MG/20 ML AMP IV ONE ×3 (10:46→12:00)
--- NOTE | 2016-10-29 11:08 | MR ---
cc: MILAGROS ALMAZAN M.D., HAROLD H. JR. MD SCHWARTZ, EDWARD B. DO DATE: 10/29/2016 PROCEDURE Esophagogastroduodenoscopy with biopsy. INDICATION Early satiety. REFERRING PHYSICIAN Dr. Tiwari. CONSULTING PHYSICIAN Dr. Almazan. PROCEDURE After informed consent was obtained, the patient was placed in left side down position. He was sedated by the anesthesia service. After adequate sedation was achieved the Pentax video gastroscope was inserted in the oropharynx and advanced to the esophagus, stomach and duodenum. It was then slowly withdrawn examining the mucosal surfaces carefully. Biopsies were obtained in the gastric antrum. The scope was retroflexed in the upper stomach. The scope was then straightened and pulled through the esophagus and the procedure was terminated. He tolerated the procedure well and was returned to the recovery area in good condition. FINDINGS 1. The esophagus appeared normal. 2. In the stomach there was normal-appearing postsurgical anatomy for a gastric sleeve. In the antrum there was streaky gastritis and biopsies were taken. 3. The pylorus was normal in appearance and did not appear to need dilatation. 4. The duodenum appeared normal. IMPRESSION 1. Gastritis. 2. No evidence of pyloric stenosis. 3. Early satiety, probably due to gastric sleeve surgery. RECOMMENDATIONS 1. Will await the biopsy result. 2. He can resume his usual diet. Jake Bruce MD [facility] /10:51 AM /10:56 AM
[2016-10-29] MEDS: CLINDAMYCIN INJ 900 MG in SODIUM CHLORIDE 0.9% INJ 100 ML IV SCH ×3 (12:01→22:14)
[2016-10-29 12:10] VITALS: BP 146/88; PULSE 75; RESP 17; TEMP 98.5; O2SAT 91; O2SAT 95
[2016-10-29] MEDS: MORPHINE SULFATE 15 MG CONTROLLED RELEASE TAB PO SCH ×2 (12:39→22:12)
--- NOTE | 2016-10-29 13:24 | HHI.PR ---
Subjective Remarks no new complaints Objective Vitals heentneg heart reg lung cta abd s/nt ext no edema Vital Signs Date Time Temp Pulse Resp B/P Pulse Ox O2 Delivery O2 Flow Rate FiO2 10/29/16 12:10 98.5 75 17 146/88 95 10/29/16 11:03 75 18 132/65 98 10/29/16 10:53 72 18 128/63 99 10/29/16 10:43 99.5 73 18 122/62 98 10/29/16 07:58 98.7 88 18 155/83 96 10/29/16 04:00 97.7 76 20 138/80 98 10/29/16 01:00 97.8 77 22 144/80 95 10/28/16 20:00 101.5 90 20 135/77 95 10/28/16 16:00 98.5 77 18 129/84 98 10/28/16 10/28/16 10/29/16 15:00 23:00 07:00 Intake Total 480 ml 1000 ml Balance 480 ml 1000 ml Intake Oral 480 ml IV Total 1000 ml # Voids 2 1 # Bowel Movements 2 Result Diagram: 10/27/16 0811 10/27/16 0811 Imaging Last Impressions Chest X-Ray 10/26/16 0842 Signed Impressions: Service Date/Time: Wednesday, October 26, 2016 08:47 - CONCLUSION: Questionable small infiltrate in right lung base laterally. Left lung is clear. Dewey Madsen MD Chest CT 10/26/16 0000 Signed Impressions: Service Date/Time: Wednesday, October 26, 2016 19:15 - CONCLUSION: 1. Interval resolution of previously noted cavitary mass in the posterior right upper lobe with apparent mild scarring in this region. 2. New areas of consolidation in the right lower lobe may be infectious or inflammatory. Francis Smith MD Procedures EGD on 10/29/[address] Bruce --> gastritis, altered anatomy consistent with gastric sleeve surgery A/P Problem List: (1) Aspiration pneumonia Status: Acute Plan: - Pt admitted on 10/26/16 with generalized weakness, cough, and fevers - CXR (10/26/16) --> small, possible infiltrate at right lung base - Chest CT (10/26/16) --> Interval resolution of previously noted cavitary mass in the posterior right upper lobe with apparent mild scarring in this region. New areas of consolidation in the right lower lobe may be infectious or inflammatory. - Blood culture (10/26/16) ngtd - Sputum cx --> MRSA - Pt was started on Rocephin & azithromycin. changed to Zosyn and Vanco but based on culture sensitivity results, the antibiotics were changed to Clinda - GI eval and endoscopy as pt having alot of regurgitation and aspiration of food. (2) Early satiety Status: Acute Plan: - Pt with hx of gastric sleeve surgery - Complains of early satiety over the last 2-3 weeks and increased GERD symptoms. - Pts last EGD/colonoscopy was 05/16/2016 --> nodular gastritis in the gastric antrum, gastric sleeve, and multiple polyps and hemorrhoids. - EGD (10/29/16) --> Gastritis and altered anatomy consistent with gastric sleeve surgery - Discuss with pt that he need to avoid eating for at least an hour before going to bed or lying down. He should elevate the head of his bed. - Continue PPI BID (3) Bipolar depression Status: Chronic Plan: - Cont. seropquel, latuda, depakote (4) HTN (hypertension) Status: Chronic Plan: - Cont. home meds (5) Diabetes mellitus type 2, insulin dependent Status: Chronic Plan: - continue insulin pump (6) Hypothyroid Status: Acute Plan: - s/p thyroidectomy for thyroid CA - levothyroxine (7) Rheumatoid arthritis Status: Chronic Assessment and Plan Patient examined. Assessment and plan formulated with Heike Castro PA-C. I agree with the above. aspiration pna. s/p gastric sleeve. mostly nightime regurg of food. diet modification before bedtime. adjust abx. pt wants snf. Problem Qualifiers (1) Hypothyroid: Qualified Code: E03.9 - Acquired hypothyroidism Heike Castro Oct 29, 2016 13:24 Anthony Glover MD Oct 29, 2016 17:02
[2016-10-29 16:25] VITALS: BP 157/67; PULSE 66; RESP 20; TEMP 96.4; O2SAT 96
[2016-10-29 20:00] VITALS: BP 152/79; PULSE 89; RESP 20; TEMP 95; O2SAT 95
[2016-10-29] MEDS: QUEtiapine FUMARATE 25 MG TAB PO SCH (22:11)
[2016-10-29] MEDS: DIVALPROEX SODIUM E.R. 500 MG TAB PO SCH (22:14)
[2016-10-30 01:03] VITALS: BP 159/92; PULSE 80; RESP 20; TEMP 99.4; O2SAT 95
[2016-10-30] MEDS ORDERED: PHARMACY ORDERED LAB ONE (01:45)
[2016-10-30] MEDS: CLINDAMYCIN INJ 900 MG in SODIUM CHLORIDE 0.9% INJ 100 ML IV SCH (03:52)
[2016-10-30 04:59] VITALS: BP 144/84; PULSE 76; RESP 18; TEMP 97.4; O2SAT 92
[2016-10-30] MEDS: INSULIN ASPART SUPPLEMENTAL SCALE SQ SCH ×4 (06:30→22:07)
[2016-10-30] MEDS: LEVOTHYROXINE SODIUM 125 MCG TAB PO SCH (06:30)
[2016-10-30] MEDS: 1/2 NS + KCL 20 MEQ INJ 1,000 ML IV SCH (06:31)
[2016-10-30 08:08] VITALS: BP 138/84; PULSE 77; RESP 19; TEMP 96.2; O2SAT 93
[2016-10-30] MEDS: ASPIRIN EC 81 MG TABEC PO SCH (08:13)
[2016-10-30] MEDS: METOPROLOL TARTRATE 100 MG TAB PO SCH ×2 (08:13→22:11)
[2016-10-30] MEDS: DOCUSATE SODIUM 100 MG CAP PO SCH (08:13)
[2016-10-30] MEDS: MELOXICAM 15 MG TAB PO SCH (08:14)
[2016-10-30] MEDS: PANTOPRAZOLE SOD 40 MG DELAYED RELEASE TAB PO SCH ×2 (08:14→22:14)
[2016-10-30] MEDS: SPIRONOLACTONE 100 MG TAB PO SCH ×2 (08:14→22:11)
[2016-10-30] MEDS: LIOTHYRONINE SODIUM 5 MCG TAB PO SCH ×2 (08:14→22:11)
[2016-10-30] MEDS: GABAPENTIN 400 MG CAP PO SCH ×3 (08:14→17:01)
[2016-10-30] MEDS: LURASIDONE 40 MG TAB PO SCH (08:14)
[2016-10-30] MEDS: FLUTICASONE 200 MCG/VILANTEROL 25 MCG INHALER INH SCH (08:24)
[2016-10-30] MEDS: SODIUM CHLORIDE 0.9% FLUSH 10 ML FLUSH IV FLUSH SCH ×2 (08:25→22:15)
[2016-10-30] MEDS: CLINDAMYCIN 150 MG CAP PO SCH ×3 (09:36→22:13)
[2016-10-30] MEDS: MORPHINE SULFATE 15 MG CONTROLLED RELEASE TAB PO SCH ×2 (11:09→22:23)
--- NOTE | 2016-10-30 11:34 | HHI.PR ---
Subjective Remarks some diarrhea now. still getting full after meals. Objective Vitals heart reg stephanie gcta abd s/nt ext no edema Vital Signs Date Time Temp Pulse Resp B/P Pulse Ox O2 Delivery O2 Flow Rate FiO2 10/30/16 08:08 96.2 77 19 138/84 93 10/30/16 04:59 97.4 76 18 144/84 92 10/30/16 01:03 99.4 80 20 159/92 95 10/29/16 20:00 95.0 89 20 152/79 95 10/29/16 16:25 96.4 66 20 157/67 96 10/29/16 12:10 98.5 75 17 146/88 95 10/29/16 10/29/16 10/30/16 15:00 23:00 07:00 Intake Total 540 ml 1523 ml Balance 540 ml 1523 ml Intake Oral 240 ml IV Total 1523 ml Other 300 ml # Voids 3 1 # Bowel Movements 3 0 Result Diagram: 10/27/16 0811 10/27/16 0811 Imaging Last Impressions Chest X-Ray 10/26/16 0842 Signed Impressions: Service Date/Time: Wednesday, October 26, 2016 08:47 - CONCLUSION: Questionable small infiltrate in right lung base laterally. Left lung is clear. Dewey Madsen MD Chest CT 10/26/16 0000 Signed Impressions: Service Date/Time: Wednesday, October 26, 2016 19:15 - CONCLUSION: 1. Interval resolution of previously noted cavitary mass in the posterior right upper lobe with apparent mild scarring in this region. 2. New areas of consolidation in the right lower lobe may be infectious or inflammatory. Francis Smith MD Procedures EGD on 10/29/[address] Bruce --> gastritis, altered anatomy consistent with gastric sleeve surgery A/P Problem List: (1) Aspiration pneumonia Status: Acute Plan: - Pt admitted on 10/26/16 with generalized weakness, cough, and fevers - CXR (10/26/16) --> small, possible infiltrate at right lung base - Chest CT (10/26/16) --> Interval resolution of previously noted cavitary mass in the posterior right upper lobe with apparent mild scarring in this region. New areas of consolidation in the right lower lobe may be infectious or inflammatory. - Blood culture (10/26/16) ngtd - Sputum cx --> MRSA - Pt was started on Rocephin & azithromycin. changed to Zosyn and Vanco but based on culture sensitivity results, the antibiotics were changed to Clinda - GI eval and endoscopy as pt having alot of regurgitation and aspiration of food. showed gastritis discussed diet modification with patient diarrhea..r/o c.diff add simethicone snf tomorrow. (2) Early satiety Status: Acute Plan: - Pt with hx of gastric sleeve surgery - Complains of early satiety over the last 2-3 weeks and increased GERD symptoms. - Pts last EGD/colonoscopy was 05/16/2016 --> nodular gastritis in the gastric antrum, gastric sleeve, and multiple polyps and hemorrhoids. - EGD (10/29/16) --> Gastritis and altered anatomy consistent with gastric sleeve surgery - Discuss with pt that he need to avoid eating for at least an hour before going to bed or lying down. He should elevate the head of his bed. - Continue PPI BID (3) Bipolar depression Status: Chronic Plan: - Cont. seropquel, latuda, depakote (4) HTN (hypertension) Status: Chronic Plan: - Cont. home meds (5) Diabetes mellitus type 2, insulin dependent Status: Chronic Plan: - continue insulin pump (6) Hypothyroid Status: Acute Plan: - s/p thyroidectomy for thyroid CA - levothyroxine (7) Rheumatoid arthritis Status: Chronic Problem Qualifiers (1) Hypothyroid: Qualified Code: E03.9 - Acquired hypothyroidism Anthony Glover MD Oct 30, 2016 11:34
[2016-10-30 12:06] VITALS: BP 136/75; PULSE 77; RESP 19; TEMP 97.6; O2SAT 94
[2016-10-30 13:32] LABS: C. DIFF EPI 027 PRESUMPTIVE NEGATIVE (NEGATIVE); C. DIFF TOXIN PCR NEGATIVE (NEGATIVE)
[2016-10-30 13:41] LABS: AUTOMATED NEUTROPHIL # 4.1 TH/MM3 (1.8-7.7); BASOPHIL % 0.5 % (0.0-2.0); EOSINOPHIL # 0.1 TH/MM3 (0-0.4); EOSINOPHIL % 1.7 % (0.0-4.0); HEMO FLAGS DIFF FINAL; LYMPH % 15.7 % (9.0-44.0); LYMPHOCYTE # 0.9 TH/MM3 (1.0-4.8); MEAN CELL VOLUME 85.2 FL (80.0-100.0); MEAN CORPUSCULAR HEMOGLOBIN 28.6 PG (27.0-34.0); MEAN CORPUSCULAR HGB CONC 33.6 % (32.0-36.0); MONO % 10.6 % (0.0-8.0); NEUT % 71.5 % (16.0-70.0); PLATELET COUNT 145 TH/MM3 (150-450); RED BLOOD COUNT 3.76 MIL/MM3 (4.50-5.90); RED CELL DISTRIBUTION WIDTH 16.9 % (11.6-17.2); WHITE BLOOD COUNT 5.7 TH/MM3 (4.0-11.0)
[2016-10-30] MEDS: SIMETHICONE 125 MG CHEWABLE TAB PO SCH ×2 (14:19→22:14)
[2016-10-30 14:51] LABS: POTASSIUM 4.1 MEQ/L (3.5-5.1)
[2016-10-30 16:04] VITALS: BP 154/86; PULSE 81; RESP 19; TEMP 96.2; O2SAT 94
[2016-10-30] MEDS ORDERED: LOPERAMIDE HCL 2 MG CAP PO ONE (16:15)
--- NOTE | 2016-10-30 17:28 | HHI.GIFU ---
Subjective Remarks Pt resting in bed, no complaints. SAys he is able to eat a little bit more. Objective Vitals I&O Vital Signs Date Time Temp Pulse Resp B/P Pulse Ox O2 Delivery O2 Flow Rate FiO2 10/30/16 16:04 96.2 81 19 154/86 94 10/30/16 12:06 97.6 77 19 136/75 94 10/30/16 08:08 96.2 77 19 138/84 93 10/30/16 04:59 97.4 76 18 144/84 92 10/30/16 01:03 99.4 80 20 159/92 95 10/29/16 20:00 95.0 89 20 152/79 95 I/O 10/29/16 10/29/16 10/29/16 10/30/16 10/30/16 10/30/16 07:00 15:00 23:00 07:00 15:00 23:00 Intake Total 1000 ml 540 ml 1523 ml 920 ml Balance 1000 ml 540 ml 1523 ml 920 ml Intake Oral 240 ml 920 ml IV Total 1000 ml 1523 ml Other 300 ml # Voids 1 3 1 7 # Bowel Movements 3 0 6 Laboratory Laboratory Tests Test 10/30/16 10/30/16 11:45 12:20 Stool C. difficile Toxin (PCR) NEGATIVE Stl C. difficile Toxin PRESUMPTIVE Epiderm 027 NEGATIVE White Blood Count 5.7 Red Blood Count 3.76 Hemoglobin 10.7 Hematocrit 32.0 Mean Corpuscular Volume 85.2 Mean Corpuscular Hemoglobin 28.6 Mean Corpuscular Hemoglobin 33.6 Concent Red Cell Distribution Width 16.9 Platelet Count 145 Mean Platelet Volume 8.7 Neutrophils (%) (Auto) 71.5 Lymphocytes (%) (Auto) 15.7 Monocytes (%) (Auto) 10.6 Eosinophils (%) (Auto) 1.7 Basophils (%) (Auto) 0.5 Neutrophils # (Auto) 4.1 Lymphocytes # (Auto) 0.9 Monocytes # (Auto) 0.6 Eosinophils # (Auto) 0.1 Basophils # (Auto) 0.0 CBC Comment DIFF FINAL Differential Comment Sodium Level 135 Potassium Level 4.1 Chloride Level 105 Carbon Dioxide Level 20.0 Anion Gap 10 Blood Urea Nitrogen 7 Creatinine 0.82 Estimat Glomerular Filtration 100 Rate Random Glucose 232 Calcium Level 8.7 Date/Time Procedure Status Source Growth 10/27/16 13:42 Gram Stain - Final Complete Sputum Expectorated Sputum 10/27/16 13:42 Sputum Culture - Final Complete S. Aureus Mrsa 10/26/16 11:45 Influenza Types A,B Antigen (MITCHELL) - Final Complete Nasal Washing NEGATIVE FOR FLU A AND B ANTIGEN.... 10/26/16 08:50 Aerobic Blood Culture - Preliminary Resulted Blood Peripheral NO GROWTH IN 4 DAYS 10/26/16 08:50 Anaerobic Blood Culture - Preliminary Resulted Blood Peripheral NO GROWTH IN 4 DAYS Imaging Last Impressions Shoulder X-Ray 10/27/16 0000 Signed Impressions: Service Date/Time: Thursday, October 27, 2016 15:52 - CONCLUSION: Unremarkable study. Jackie Huitron MD Abdomen X-Ray 10/27/16 0000 Signed Impressions: Service Date/Time: Thursday, October 27, 2016 10:49 - CONCLUSION: Nonspecific abdomen. Jackie Huitron MD Chest X-Ray 10/26/16 0842 Signed Impressions: Service Date/Time: Wednesday, October 26, 2016 08:47 - CONCLUSION: Questionable small infiltrate in right lung base laterally. Left lung is clear. Dewey Madsen MD Chest CT 10/26/16 0000 Signed Impressions: Service Date/Time: Wednesday, October 26, 2016 19:15 - CONCLUSION: 1. Interval resolution of previously noted cavitary mass in the posterior right upper lobe with apparent mild scarring in this region. 2. New areas of consolidation in the right lower lobe may be infectious or inflammatory. Francis Smith MD Physical Exam HEENT: PERRL; normocephalic; atraumatic; no jaundice. CHEST: Resp unlabored CARDIAC: RRR. ABDOMEN: Soft, nondistended, nontender; no hepatosplenomegaly; bowel sounds are present in all four quadrants. EXTREMITIES: No clubbing, cyanosis, or edema. SKIN: Normal; no rash; no jaundice. ENVIRONMENTAL REMEDIATION SPECIALIST: No focal deficits; alert and oriented times three. Assessment and Plan Plan ASSESSMENT - early satiety - for last 3m. full after 2 bites of food. EGD 04/2016 --> nodular gastritis, colonoscopy found polyps and hemorrhoids EGD 10-29-16 EGD today showed gastritis. Otherwise normal post gastric sleeve anatomy - GERD - takes PPI PLAN - Resume diet. - ok to d/c to SNF from GI standpoint - colonoscopy, [facility] as outpt This pt seen by myself and Dr Bruce and this note is written on his behalf Beth Schmitt Oct 30, 2016 17:28
[2016-10-30 20:00] VITALS: BP 142/71; PULSE 89; RESP 20; TEMP 98.6; O2SAT 97
[2016-10-30] MEDS: QUEtiapine FUMARATE 25 MG TAB PO SCH (22:11)
[2016-10-30] MEDS: DIVALPROEX SODIUM E.R. 500 MG TAB PO SCH (22:12)
[2016-10-30] MEDS: LOPERAMIDE HCL 2 MG CAP PO PRN (22:13)
[2016-10-31] VITALS: BP 161/91; PULSE 81; RESP 20; TEMP 97.6; O2SAT 96
[2016-10-31] MEDS: guaiFENesin/DEXTROMETHORPHAN 200 MG/20 MG/10 ML CUP PO PRN ×2 (03:08→10:04)
[2016-10-31 04:00] VITALS: BP 160/83; PULSE 78; RESP 20; TEMP 96.7; O2SAT 96
[2016-10-31] MEDS: LOPERAMIDE HCL 2 MG CAP PO PRN (06:17)
[2016-10-31] MEDS: SIMETHICONE 125 MG CHEWABLE TAB PO SCH ×3 (06:17→14:27)
[2016-10-31] MEDS: LEVOTHYROXINE SODIUM 125 MCG TAB PO SCH (06:17)
[2016-10-31] MEDS: CLINDAMYCIN 150 MG CAP PO SCH ×2 (06:17→14:27)
[2016-10-31] MEDS: INSULIN ASPART SUPPLEMENTAL SCALE SQ SCH ×2 (06:20→11:00)
[2016-10-31 08:30] VITALS: BP 142/88; PULSE 73; RESP 18; TEMP 95.8; O2SAT 94
[2016-10-31] MEDS: FLUTICASONE 200 MCG/VILANTEROL 25 MCG INHALER INH SCH (09:00)
[2016-10-31] MEDS: SODIUM CHLORIDE 0.9% FLUSH 10 ML FLUSH IV FLUSH SCH (09:00)
[2016-10-31] MEDS: ASPIRIN EC 81 MG TABEC PO SCH (10:04)
[2016-10-31] MEDS: GABAPENTIN 400 MG CAP PO SCH ×2 (10:04→12:06)
[2016-10-31] MEDS: METOPROLOL TARTRATE 100 MG TAB PO SCH (10:06)
[2016-10-31] MEDS: LURASIDONE 40 MG TAB PO SCH (10:07)
[2016-10-31] MEDS: SPIRONOLACTONE 100 MG TAB PO SCH (10:08)
[2016-10-31] MEDS: MELOXICAM 15 MG TAB PO SCH (10:16)
[2016-10-31] MEDS: LIOTHYRONINE SODIUM 5 MCG TAB PO SCH (10:17)
[2016-10-31] MEDS: PANTOPRAZOLE SOD 40 MG DELAYED RELEASE TAB PO SCH (10:17)
--- NOTE | 2016-10-31 10:55 | PD.PN.STU ---
Subjective Remarks Patient resting well in room with mother, no new complaints States diarrhea resolving since loperamide use yesterday, C diff labs negative Right lower chest pain slowly resolving but still present on deep inspiration Able to ambulate from bed to restroom with use of walker Tolerating full diet without complaints Requesting nutrition consult, status post gastric sleeve and unsure as to dietary recommendations Tolerating oral clindamycin well, planned discharge to SNF later today Objective Vitals Vital Signs Date Time Temp Pulse Resp B/P Pulse Ox O2 Delivery O2 Flow Rate FiO2 10/31/16 08:30 95.8 73 18 142/88 94 10/31/16 04:00 96.7 78 20 160/83 96 10/31/16 00:00 97.6 81 20 161/91 96 10/30/16 20:00 98.6 89 20 142/71 97 10/30/16 16:04 96.2 81 19 154/86 94 10/30/16 12:06 97.6 77 19 136/75 94 I/O 10/30/16 10/30/16 10/30/16 10/31/16 10/31/16 10/31/16 07:00 15:00 23:00 07:00 15:00 23:00 Intake Total 1523 ml 1160 ml 120 ml Balance 1523 ml 1160 ml 120 ml Intake Oral 1160 ml 120 ml IV Total 1523 ml # Voids 1 8 2 # Bowel Movements 0 6 1 Result Diagram: 10/30/16 1220 10/30/16 1220 Other Results Laboratory Tests Test 10/30/16 10/30/16 11:45 12:20 Stool C. difficile Toxin (PCR) NEGATIVE (NEGATIVE) Stl C. difficile Toxin PRESUMPTIVE Epiderm 027 NEGATIVE (NEGATIVE) White Blood Count 5.7 TH/MM3 (4.0-11.0) Red Blood Count 3.76 MIL/MM3 (4.50-5.90) Hemoglobin 10.7 GM/DL (13.0-17.0) Hematocrit 32.0 % (39.0-51.0) Mean Corpuscular Volume 85.2 FL (80.0-100.0) Mean Corpuscular Hemoglobin 28.6 PG (27.0-34.0) Mean Corpuscular Hemoglobin 33.6 % Concent (32.0-36.0) Red Cell Distribution Width 16.9 % (11.6-17.2) Platelet Count 145 TH/MM3 (150-450) Mean Platelet Volume 8.7 FL (7.0-11.0) Neutrophils (%) (Auto) 71.5 % (16.0-70.0) Lymphocytes (%) (Auto) 15.7 % (9.0-44.0) Monocytes (%) (Auto) 10.6 % (0.0-8.0) Eosinophils (%) (Auto) 1.7 % (0.0-4.0) Basophils (%) (Auto) 0.5 % (0.0-2.0) Neutrophils # (Auto) 4.1 TH/MM3 (1.8-7.7) Lymphocytes # (Auto) 0.9 TH/MM3 (1.0-4.8) Monocytes # (Auto) 0.6 TH/MM3 (0-0.9) Eosinophils # (Auto) 0.1 TH/MM3 (0-0.4) Basophils # (Auto) 0.0 TH/MM3 (0-0.2) CBC Comment DIFF FINAL Differential Comment Sodium Level 135 MEQ/L (136-145) Potassium Level 4.1 MEQ/L (3.5-5.1) Chloride Level 105 MEQ/L (98-107) Carbon Dioxide Level 20.0 MEQ/L (21.0-32.0) Anion Gap 10 MEQ/L (5-15) Blood Urea Nitrogen 7 MG/DL (7-18) Creatinine 0.82 MG/DL (0.60-1.30) Estimat Glomerular Filtration 100 ML/MIN Rate (>89) Random Glucose 232 MG/DL (74-106) Calcium Level 8.7 MG/DL (8.5-10.1) Objective Remarks Patient resting well, able to sit up to eat RRR no rubs murmurs gallops Right lower lung crackles with decreased breath sounds, comparatively better than yesterday. Mild bilateral expiratory wheezes Abdomen mildly tender in epigastric region Medications and IVs Current Medications Medications (Trade) Dose Ordered Sig/Sally Route PRN Reason Start Time Stop Time Status Last Admin Dose Admin Sodium Chloride (NS Flush) 2 ml UNSCH PRN IV FLUSH FLUSH AFTER USING IV ACCESS 10/26/16 10:30 Sodium Chloride (NS Flush) 2 ml BID IV FLUSH 10/26/16 21:00 10/31/16 09:00 Acetaminophen (Tylenol) 650 mg Q4H PRN PO TEMP > 100.4 10/26/16 10:30 10/28/16 21:08 Ondansetron HCl (Zofran Inj) 4 mg Q6H PRN IVP NAUSEA OR VOMITING 10/26/16 10:30 Temazepam (Restoril) 15 mg HS PRN PO INSOMNIA 10/26/16 10:30 10/26/16 21:31 Naloxone HCl (Narcan Inj) 0.4 mg UNSCH PRN IV SEE LABEL COMMENTS 10/26/16 10:30 Magnesium Hydroxide (Milk Of Ihsan Liq) 30 ml Q12H PRN PO MILD - MODERATE CONSTIPATION 10/26/16 10:30 Albuterol Sulfate (Ventolin Hfa Inh) 2 puff Q4H PRN INH SHORTNESS OF BREATH 10/26/16 10:30 Aspirin (Ecotrin Ec) 81 mg DAILY PO 10/26/16 10:30 10/31/16 10:04 Divalproex Sodium (Depakote Er) 2,500 mg HS PO 10/26/16 21:00 10/30/16 22:12 Fluticasone/ Vilanterol (Breo Ellipta 200-25 Inh) 1 puff DAILY INH 10/26/16 10:30 10/31/16 09:00 Gabapentin (Neurontin) 800 mg TID PO 10/26/16 13:00 10/31/16 10:04 Levothyroxine Sodium (Synthroid) 250 mcg DAILY@06 PO 10/26/16 10:30 10/31/16 06:17 Liothyronine Sodium (Cytomel) 10 mcg BID PO 10/26/16 10:30 10/31/16 10:17 Lurasidone HCl (Latuda) 40 mg DAILY PO 10/26/16 10:30 10/31/16 10:07 Meloxicam (Mobic) 15 mg DAILY PO 10/26/16 10:30 10/31/16 10:16 Metoprolol Tartrate (Lopressor) 200 mg BID PO 10/26/16 10:30 10/31/16 10:06 Morphine Sulfate (Oramorph Sr) 15 mg Q12H PO 10/26/16 11:00 10/30/16 22:23 Pantoprazole Sodium (Protonix) 40 mg BID@08,20 PO 10/26/16 10:30 10/31/16 10:17 Quetiapine Fumarate (SEROquel) 125 mg HS PO 10/26/16 21:00 10/30/16 22:11 Spironolactone (Aldactone) 100 mg BID PO 10/26/16 10:30 10/31/16 10:08 Clindamycin HCl (Cleocin) 300 mg Q8HR PO 10/30/16 09:00 10/31/16 06:17 Simethicone (Phazyme Chew) 125 mg Q8HR PO 10/30/16 14:00 10/31/16 10:07 Loperamide HCl (Imodium) 2 mg Q4H PRN PO DIARRHEA 10/30/16 16:15 10/31/16 06:17 Guaifenesin/ Dextromethorphan (Robitussin Dm 200-20 Mg/10 ml Liq) 5 ml Q6H PRN PO COUGH 10/30/16 23:15 10/31/16 10:04 A/P Assessment and Plan 1) Aspiration pneumonia Sputum culture positive for MRSA, Susceptible to clindamycin, tolerating oral clinda well for 2 days Afebrile for past several days, labs show evidence of resolving infection Continue oral clinda 10 days post discharge Aspiration likely due to reflux, patient post gastric sleeve 2) Gastric reflux Status post gastric sleeve, states regularly awakes coughing on refluxed food PPI, avoidance of over eating as well as trigger foods (caffeine, chocolate, spice, mint) Avoid foot intake for 2 hours prior to bed Sleeping with head of bed at least 30 degrees elevated 3) Early satiety Status post gastric sleeve Endoscopy by GI shows normal post sleeve anatomy, gastritis noted Slowly advance diet to avoid further irritation, smaller portion meals, PPI 4) Bipolar (chronic) Continue at home meds 5) Hypertension (chronic) Continue at home meds 6) Hypothyroid Status post thyroidectomy Continue at home meds 7) Rheumatoid arthritis (controlled) Continue at home meds Oliva Bernstein M3 Oct 31, 2016 10:55
--- NOTE | 2016-10-31 12:01 | HHI.PR ---
Subjective Remarks DOING OK. NOT VOMITING Objective Vitals heart reg lung cta abd s/nt ext no edema Vital Signs Date Time Temp Pulse Resp B/P Pulse Ox O2 Delivery O2 Flow Rate FiO2 10/31/16 08:30 95.8 73 18 142/88 94 10/31/16 04:00 96.7 78 20 160/83 96 10/31/16 00:00 97.6 81 20 161/91 96 10/30/16 20:00 98.6 89 20 142/71 97 10/30/16 16:04 96.2 81 19 154/86 94 10/30/16 12:06 97.6 77 19 136/75 94 10/30/16 10/30/16 10/31/16 15:00 23:00 07:00 Intake Total 1160 ml 120 ml Balance 1160 ml 120 ml Intake Oral 1160 ml 120 ml # Voids 8 2 # Bowel Movements 6 1 Result Diagram: 10/30/16 1220 10/30/16 1220 Imaging Last Impressions Chest X-Ray 10/26/16 0842 Signed Impressions: Service Date/Time: Wednesday, October 26, 2016 08:47 - CONCLUSION: Questionable small infiltrate in right lung base laterally. Left lung is clear. Dewey Madsen MD Chest CT 10/26/16 0000 Signed Impressions: Service Date/Time: Wednesday, October 26, 2016 19:15 - CONCLUSION: 1. Interval resolution of previously noted cavitary mass in the posterior right upper lobe with apparent mild scarring in this region. 2. New areas of consolidation in the right lower lobe may be infectious or inflammatory. Francis Smith MD Procedures EGD on 10/29/[address] Bruce --> gastritis, altered anatomy consistent with gastric sleeve surgery A/P Problem List: (1) Aspiration pneumonia Status: Acute Plan: - Pt admitted on 10/26/16 with generalized weakness, cough, and fevers - CXR (10/26/16) --> small, possible infiltrate at right lung base - Chest CT (10/26/16) --> Interval resolution of previously noted cavitary mass in the posterior right upper lobe with apparent mild scarring in this region. New areas of consolidation in the right lower lobe may be infectious or inflammatory. - Blood culture (10/26/16) ngtd - Sputum cx --> MRSA - Pt was started on Rocephin & azithromycin. changed to Zosyn and Vanco but based on culture sensitivity results, the antibiotics were changed to Clinda - GI eval and endoscopy as pt having alot of regurgitation and aspiration of food. showed gastritis discussed diet modification with patient no c diff gi discussed outpt ges add simethicone d/c to snf. (2) Early satiety Status: Acute Plan: - Pt with hx of gastric sleeve surgery - Complains of early satiety over the last 2-3 weeks and increased GERD symptoms. - Pts last EGD/colonoscopy was 05/16/2016 --> nodular gastritis in the gastric antrum, gastric sleeve, and multiple polyps and hemorrhoids. - EGD (10/29/16) --> Gastritis and altered anatomy consistent with gastric sleeve surgery - Discuss with pt that he need to avoid eating for at least an hour before going to bed or lying down. He should elevate the head of his bed. - Continue PPI BID (3) Bipolar depression Status: Chronic Plan: - Cont. seropquel, latuda, depakote (4) HTN (hypertension) Status: Chronic Plan: - Cont. home meds (5) Diabetes mellitus type 2, insulin dependent Status: Chronic Plan: - continue insulin pump (6) Hypothyroid Status: Acute Plan: - s/p thyroidectomy for thyroid CA - levothyroxine (7) Rheumatoid arthritis Status: Chronic Problem Qualifiers (1) Hypothyroid: Qualified Code: E03.9 - Acquired hypothyroidism Anthony Glover MD Oct 31, 2016 12:01
[2016-10-31] MEDS ORDERED: CLIN150 PO (12:05)
[2016-10-31] MEDS ORDERED: DEXT10SY2 PO (12:05)
[2016-10-31] MEDS ORDERED: LOPE2CAP92 PO (12:05)
[2016-10-31] MEDS ORDERED: SIME1CHW11 PO (12:05)
[2016-10-31] MEDS ORDERED: MORP1TAB24 PO (12:05)
--- NOTE | 2016-10-31 12:05 | HHI.DCPOC ---
Discharge Care Plan Diagnosis: (1) Aspiration pneumonia (2) Early satiety (3) Diabetes mellitus type 2, insulin dependent (4) Bipolar depression (5) Hypothyroid (6) HTN (hypertension) Goals to Promote Your Health * To prevent worsening of your condition and complications * To maintain your health at the optimal level Directions to Meet Your Goals Take your medications as prescribed Follow your dietary instruction Follow activity as directed Keep your appointments as scheduled Take your immunizations and boosters as scheduled If your symptoms worsen call your PCP, if no PCP go to Urgent Care Center or Emergency Room Smoking is Dangerous to Your Health. Avoid second hand smoke Call the 24-hour hour crisis hotline for domestic abuse at Anthony Glover MD Oct 31, 2016 12:05
[2016-10-31] MEDS: MORPHINE SULFATE 15 MG CONTROLLED RELEASE TAB PO SCH (12:07)
[2016-10-31 12:42] VITALS: BP 142/88; PULSE 70; RESP 18; TEMP 97.7; O2SAT 92
== END 2016-10-31 15:49 | DRG 178 ==
LOC: NEPC 08:28 → NEDA 10:42 → NEPHCDU 12:19 → OBSVTOIN 10-27 09:36 → N05A 10-27 10:54
PROVIDERS: ADMIT Hospitalist; ATTEND Hospitalist
PROC: 0DB68ZX Excision of Stomach, Via Natural or Artificial Opening Endoscopic, Diagnostic (ICD-10-PCS; principal; 2016-10-29 10:08)
DX: J69.0 Pneumonitis due to inhalation of food and vomit (principal); F31.60 Bipolar disorder, current episode mixed, unspecified; G21.19 Other drug induced secondary parkinsonism; E11.22 Type 2 diabetes mellitus with diabetic chronic kidney disease; F32.9 Major depressive disorder, single episode, unspecified; R68.81 Early satiety; M06.9 Rheumatoid arthritis, unspecified; K21.9 Gastro-esophageal reflux disease without esophagitis; Z96.41 Presence of insulin pump (external) (internal); K29.70 Gastritis, unspecified, without bleeding; E89.0 Postprocedural hypothyroidism; M25.512 Pain in left shoulder; K59.00 Constipation, unspecified; R19.7 Diarrhea, unspecified; F41.1 Generalized anxiety disorder; E26.01 Conn's syndrome; I12.9 Hypertensive chronic kidney disease with stage 1 through stage 4 chronic kidney disease, or unspecified chronic kidney disease; N18.1 Chronic kidney disease, stage 1; E78.1 Pure hyperglyceridemia; E66.9 Obesity, unspecified; F41.0 Panic disorder [episodic paroxysmal anxiety]; Z79.82 Long term (current) use of aspirin; Z79.4 Long term (current) use of insulin; Z98.84 Bariatric surgery status; Z68.35 Body mass index [BMI] 35.0-35.9, adult; Z98.1 Arthrodesis status
CPT/HCPCS: 36600; 71010; 71260; 73030; 74000; 76937; 80048; 80053; 81001; 82550; 82552; 82805; 82948; 83605; 83690; 83735; 84484; 85025; 85610; 85730; 86308; 86403; 86703; 87040; 87070; 87147; 87186; 87205; 87493; 87804; 88305; 93005; J0456; J0696; J1815; J2543; J3370; J7040; J7050; Q9967

== ENCOUNTER 2017-01-03 19:55 | Emergency (ER) | payer OTHER ==
[~2017-01-03] VITALS: Ht 188 cm; Wt 116.0 kg
[~2017-01-03 19:55] MED LIST changes: +CLIN150 PO; +DEXT10SY2 PO; +LOPE2CAP92 PO; +SIME1CHW11 PO
[2017-01-03 19:58] VITALS: BP 152/83; PULSE 82; RESP 16; TEMP 98.7; O2SAT 99
[2017-01-03] MEDS ORDERED: SODIUM CHLOR 0.9% 1000 ML INJ 1,000 ML IV ONE (21:16)
--- NOTE | 2017-01-03 21:25 | PD ---
HPI Chief Complaint: Fall Time Seen by Provider: 21:04 Travel History International Travel<30 days: No Contact w/Intl Traveler<30days: No Traveled to known affect area: No History of Present Illness HPI 51-year-old male presents to the emergency department for evaluation after a fall that occurred approximately 3 hours ago. Patient states that he has flushing the toilet when somehow, he fell backwards hitting his back against the tub. Patient states he does not know how he fell. He denies it being a slip and fall or trip and fall. He states that he might have been dizzy before he fell, but is not sure. He states that he does not remember actually falling , only remembers hitting the tub. The patient denies any chest pain or shortness of breath. No fevers or chills. He does report some right-sided rib pain, back pain. He reports history spinal fusion with spinal stimulator, hypertension, diabetes. Patient does report diarrhea for the past 2 weeks. He states he was on antibiotic 1.5 weeks ago for mouth issues. Patient denies any blood in his stool. Patient states he did hit his head. He denies any neck pain. Patient states he took his prescribed morphine at home for the pain. He currently rates his back pain 5/10. PFSH Past Medical History Arthritis: Yes (RHEUMATOID ) Asthma: Yes Autoimmune Disease: No Blood Disorders: No Bipolar Disorder: Yes Anxiety: Yes Depression: Yes Heart Rhythm Problems: No Cancer: Yes (THYROID) Cardiac Catheterization: Yes (2006) Cardiovascular Problems: Yes High Cholesterol: Yes Chemotherapy: No Chest Pain: No Congestive Heart Failure: No COPD: No Cerebrovascular Accident: No Diabetes: Yes (INSULIN PUMP ) Patient Takes Glucophage: Yes Diminished Hearing: No Endocrine: Yes (HYPOALDOSTORISM, THYROIDECTOMY) Gastrointestinal Disorders: Yes (GERD, GASTRIC SLEEVE) GERD: Yes Genitourinary: No Headaches: No Hepatitis: No Hiatal Hernia: No Hypertension: Yes Immune Disorder: No Implanted Vascular Access Dvce: Yes Medical other: No Musculoskeletal: Yes (LUMBAR FUSION/ NERVE STIM) Neurologic: Yes Psychiatric: Yes (CLAUSTROPHOBIC) Reproductive: No Respiratory: Yes Immunizations Current: Yes Migraines: No Myocardial Infarction: No Pneumonia: Yes Radiation Therapy: Yes Renal Failure: No Seizures: No Sleep Apnea: Yes (USES CPAP) Thyroid Disease: Yes Ulcer: No Tetanus Vaccination: < 5 Years Influenza Vaccination: Yes Past Surgical History Abdominal Surgery: Yes AICD: No Arteriovenous Shunt: No Body Medical Devices: LOWER BACK TITANIUM SCREWS AND RODS, SPINAL CORD STIMULATOR Cardiac Surgery: No Cholecystectomy: Yes Ear Surgery: No Endocrine Surgery: Yes (THYROIDECTOMY) Eye Surgery: No Genitourinary Surgery: Yes (2000 VASECTOMY) Gynecologic Surgery: Yes Insulin Pump: Yes Joint Replacement: No Neurologic Surgery: Yes (LUMBAR FUSION, SPINAL STIMULATOR IMPL.) Oral Surgery: No Pacemaker: No Thoracic Surgery: No Other Surgery: Yes (EX. SCAR FOOT, ARTHROSCOPY RIGHT KNEE, NEUROSTEM STENT IN AND REMOVED,) Social History Alcohol Use: No Tobacco Use: No Substance Use: No Allergies-Medications (Allergen,Severity, Reaction): Coded Allergies: cholestyramine (Unverified Allergy, Mild, NAUSEA, 01/03/17) diltiazem (Unverified Allergy, Mild, Edema, 01/03/17) enalaprilat (Unverified Allergy, Mild, Cough, 01/03/17) isradipine (Unverified Allergy, Mild, Edema, 01/03/17) nicardipine (Unverified Allergy, Mild, Edema, 01/03/17) nifedipine (Unverified Allergy, Mild, Edema, 01/03/17) nimodipine (Unverified Allergy, Mild, Edema, 01/03/17) verapamil (Unverified Allergy, Mild, Edema, 01/03/17) amlodipine (Unverified Allergy, Unknown, enlarged liver, 01/03/17) atorvastatin (Unverified Allergy, Unknown, enlarged liver, 01/03/17) pravastatin (Unverified Allergy, Unknown, enlarged liver, 01/03/17) simvastatin (Unverified Allergy, Unknown, enlarged liver, 01/03/17) *MDRO Multi-Drug Resistant Organism (Verified Adverse Reaction, Unknown, ) MRSA (sputum) 10/27/16 Reported Meds & Prescriptions Reported Meds & Active Scripts Active Hm Loperamide HCl (Loperamide HCl) 2 Mg Cap 2 Mg PO Q4H PRN 5 Days Dextromethorphan/Guaifene 10-100 mg/5Ml (Dextromethorphan-Guaifenesin) 1 Syp Syp 5 Ml PO Q6H PRN 10 Days Gas Relief Maximum Streng (Simethicone) 125 Mg Chw 125 Mg PO Q8HR 30 Days Cleocin (Clindamycin HCl) 150 Mg Cap 300 Mg PO Q8HR 7 Days Morphine ER (Morphine Sulfate) 15 Mg Tab 15 Mg PO BID Pantoprazole (Pantoprazole Sodium) 40 Mg Tab 40 Mg PO BID NEB Aspirin EC (Aspirin) 81 Mg Tabdr 81 Mg PO DAILY Reported Cytomel (Liothyronine Sodium) 5 Mcg Tablet 10 Mcg PO BID Vitamin D3 (Cholecalciferol) 50,000 Unit Cap 50,000 Units PO 2XWEEK Mobic (Meloxicam) 15 Mg Tab 15 Mg PO DAILY Take with food Seroquel (Quetiapine Fumarate) 25 Mg Tab 125 Mg PO HS Gabapentin 400 Mg Cap 800 Cap PO TID Breo Ellipta Inh (Fluticasone/Vilanterol) 200-25 Mcg/Act Inh 1 Puff INH DAILY Use daily at the same time. Latuda (Lurasidone) 40 Mg Tab 40 Mg PO DAILY Spironolactone 50 Mg Tab 100 Mg PO BID Ventolin Hfa 18 GM Inh (Albuterol Sulfate) 90 Mcg/Act Aer 2 Puff INH Q4H PRN Chewable Calcium (Calcium Carbonate) 500 Mg Chw 500 Mg PO BID Depakote ER (Divalproex Sodium) 500 Mg Khanh 2,500 Mg PO HS Humulin R U-500 (Concentrate) Inj (Insulin Regular (Human) Concentrate Inj) 10, 000 Unit/20 Ml Vial VIA INSULIN PUMP Levothyroxine (Levothyroxine Sodium) 125 Mcg Tab 250 Mcg PO DAILY Metoprolol Tartrate 100 Mg Tab 200 Mg PO BID Imitrex (Sumatriptan Succinate) 100 Mg Tab 100 Mg PO ONCE PRN If a satisfactory response has not been obtained at 2 hours, a second dose may be administered Review of Systems Except as stated in HPI: all other systems reviewed are Neg Physical Exam Narrative GENERAL: Well-nourished, well-developed male patient, afebrile. SKIN: Focused skin assessment warm/dry. HEAD: Normocephalic. Atraumatic. ENT: Mucosa pink and moist. No erythema or exudates. No uvular edema. No uvular , palatal, or tonsillar deviation. Airway patent. Nasal turbinates appear normal without nasal blood, purulent drainage or septal hematoma. Bilateral tympanic membranes are clear without erythema or perforation. EYES: No scleral icterus. No injection or drainage. NECK: Supple, trachea midline. No JVD or lymphadenopathy. CARDIOVASCULAR: Regular rate and rhythm without murmurs, gallops, or rubs. RESPIRATORY: Breath sounds equal bilaterally. No accessory muscle use. Lungs sounds are clear to auscultation. GASTROINTESTINAL: Abdomen soft, non-tender, nondistended. No abdominal pain to palpation. MUSCULOSKELETAL: No cyanosis, or edema. BACK: No obvious deformity. No CVA tenderness. Patient has tenderness to palpation of lower midline thoracic, upper midline lumbar spine. No cervical spine tenderness. Full rotation cervical spine without pain or stiffness. Abrasion noted to mid back. Data Data Last Documented VS Vital Signs Date Time Temp Pulse Resp B/P (MAP) Pulse Ox O2 Delivery O2 Flow Rate FiO2 01/03/17 19:58 98.7 82 16 152/83 (106) 99 Room Air Orders Orders Electrocardiogram (01/03/17 21:16) Complete Blood Count With Diff (01/03/17 21:16) Comprehensive Metabolic Panel (01/03/17 21:16) Magnesium (Mg) (01/03/17 21:16) Ckmb (Isoenzyme) Profile (01/03/17 21:16) Troponin I (01/03/17 21:16) Chest, Single Ap (01/03/17 21:16) Ct Brain W/O Iv Contrast(Rout) (01/03/17 21:16) Ecg Monitoring (01/03/17 21:16) Iv Access Insert/Monitor (01/03/17 21:16) Oximetry (01/03/17 21:16) Sodium Chloride 0.9% Flush (Ns Flush) (01/03/17 21:30) Sodium Chlor 0.9% 1000 Ml Inj (Ns 1000 M (01/03/17 21:16) Ct Thor Spine W/O Contrast (01/03/17 ) Ct Lumb Spine W/O Contrast (01/03/17 ) Lipase (01/03/17 21:16) C Diff Toxin Pcr (01/03/17 21:16) CKMB (01/03/17 21:35) CKMB% (01/03/17 21:35) Sodium Chlor 0.9% 1000 Ml Inj (Ns 1000 M (01/03/17 22:45) Labs Laboratory Tests Test 01/03/17 21:35 White Blood Count 6.6 TH/MM3 Red Blood Count 4.49 MIL/MM3 Hemoglobin 13.7 GM/DL Hematocrit 39.8 % Mean Corpuscular Volume 88.7 FL Mean Corpuscular Hemoglobin 30.5 PG Mean Corpuscular Hemoglobin Concent 34.4 % Red Cell Distribution Width 16.0 % Platelet Count 218 TH/MM3 Mean Platelet Volume 7.9 FL Neutrophils (%) (Auto) 62.8 % Lymphocytes (%) (Auto) 21.1 % Monocytes (%) (Auto) 13.4 % Eosinophils (%) (Auto) 1.9 % Basophils (%) (Auto) 0.8 % Neutrophils # (Auto) 4.1 TH/MM3 Lymphocytes # (Auto) 1.4 TH/MM3 Monocytes # (Auto) 0.9 TH/MM3 Eosinophils # (Auto) 0.1 TH/MM3 Basophils # (Auto) 0.1 TH/MM3 CBC Comment DIFF FINAL Differential Comment Blood Urea Nitrogen 14 MG/DL Creatinine 1.19 MG/DL Random Glucose 294 MG/DL Total Protein 6.9 GM/DL Albumin 3.0 GM/DL Calcium Level 9.5 MG/DL Magnesium Level 1.8 MG/DL Alkaline Phosphatase 99 U/L Aspartate Amino Transf (AST/SGOT) 35 U/L Alanine Aminotransferase (ALT/SGPT) 27 U/L Total Bilirubin 0.4 MG/DL Sodium Level 134 MEQ/L Potassium Level 4.6 MEQ/L Chloride Level 97 MEQ/L Carbon Dioxide Level 27.5 MEQ/L Anion Gap 10 MEQ/L Estimat Glomerular Filtration Rate 65 ML/MIN Total Creatine Kinase 1645 U/L Troponin I LESS THAN 0.02 NG/ML Lipase 125 U/L MDM Medical Decision Making Medical Screen Exam Complete: Yes Emergency Medical Condition: Yes Medical Record Reviewed: Yes Interpretation(s) chest x-ray - CONCLUSION: Mild consolidation and very small pleural effusion laterally of the right lung base. CT brain - CONCLUSION: No bleed or other acute intracranial abnormality. 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 CT thoracic spine - CT lumbar spine - Differential Diagnosis Contusion versus abrasion versus fracture versus intracranial abnormality versus electrolyte abnormality versus dehydration Narrative Course 51-year-old male presents to the emergency department for evaluation of back pain after he fell. However, he is unsure if he was dizzy before he fell and states he does not remember actually falling, only hitting his back against the tub. He declines any pain medication at this time. EKG, CBC, CMP, magnesium, CK, troponin, lipase are ordered and pending. Chest x-ray is ordered and pending. CT of the brain, thoracic spine, lumbar spine are ordered and pending. Patient is given normal saline 1 L IV bolus. Stool for c-diff is ordered and pending. EKG shows sinus rhythm, heart rate 79, no acute ST changes. CBC shows no acute abnormality. Labs are pending. Lipase is 125. Chest x-ray shows mild consolidation and very small pleural effusion laterally of the right lung base. 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 CT of the thoracic spine and lumbar spine are pending. Dr. Burgos will resume care and disposition of patient. Irina Hu Jan 03, 2017 21:25
[2017-01-03] MEDS ORDERED: SODIUM CHLORIDE 0.9% FLUSH 10 ML FLUSH IVF PRN (21:30)
--- NOTE | 2017-01-03 21:44 | RADRPT ---
EXAM DATE/TIME: 01/03/2017 21:33 [facility] COMPARISON: No previous studies available for comparison. INDICATIONS : Right posterior rib pain. MEDICAL HISTORY : Hypertension. Diabetes mellitus type II. SURGICAL HISTORY : Thyroidectomy, spinal stimulator. ENCOUNTER: Initial ACUITY: 1 day PAIN SCORE: 5/10 LOCATION: Right posterior ribs FINDINGS: Mild consolidation and very small effusion seen laterally at the right lung base. Left lung clear. No pneumothorax demonstrated. Heart size within normal limits. Visualized osseous structures are grossly unremarkable. Patient has a thoracic spinal stimulator. CONCLUSION: Mild consolidation and very small pleural effusion laterally of the right lung base. Wilberto Sosa MD on January 03, 2017 at 21:41 Board Certified Radiologist. This report was verified electronically.
[2017-01-03 21:55] LABS: AUTOMATED NEUTROPHIL # 4.1 TH/MM3 (1.8-7.7); BASOPHIL # 0.1 TH/MM3 (0-0.2); BASOPHIL % 0.8 % (0.0-2.0); EOSINOPHIL # 0.1 TH/MM3 (0-0.4); EOSINOPHIL % 1.9 % (0.0-4.0); HEMATOCRIT 39.8 % (39.0-51.0); HEMO FLAGS DIFF FINAL; LYMPH % 21.1 % (9.0-44.0); LYMPHOCYTE # 1.4 TH/MM3 (1.0-4.8); MEAN CELL VOLUME 88.7 FL (80.0-100.0); MEAN CORPUSCULAR HEMOGLOBIN 30.5 PG (27.0-34.0); MEAN CORPUSCULAR HGB CONC 34.4 % (32.0-36.0); MONO % 13.4 % (0.0-8.0); NEUT % 62.8 % (16.0-70.0); PLATELET COUNT 218 TH/MM3 (150-450); RED BLOOD COUNT 4.49 MIL/MM3 (4.50-5.90); WHITE BLOOD COUNT 6.6 TH/MM3 (4.0-11.0)
--- NOTE | 2017-01-03 22:15 | RADRPT ---
EXAM DATE/TIME: 01/03/2017 21:56 [facility] COMPARISON: CT BRAIN W/O CONTRAST, October 15, 2016, 16:09. INDICATIONS : Trauma, fall. RADIATION DOSE: 56.35 CTDIvol (mGy) MEDICAL HISTORY : Gastroesophageal reflux disease. Cardiovascular disease Hypertension.Asthma. SURGICAL HISTORY : Cholecystectomy. Fusion, lumbar.Gastric sleeve. ENCOUNTER: Initial ACUITY: 1 day PAIN SCALE: 2/10 LOCATION: cranial TECHNIQUE: Multiple contiguous axial images were obtained of the head. Using automated exposure control and adj ustment of the mA and/or kV according to patient size, radiation dose was kept as low as reasonably a chievable to obtain optimal diagnostic quality images. DICOM format image data is available electro nically for review and comparison. FINDINGS: CEREBRUM: The ventricles are normal for age. No evidence of midline shift, mass lesion, hemorrhage or acute in farction. No extra-axial fluid collections are seen. POSTERIOR FOSSA: Chronic small area of low attenuation again seen are the right side of the cerebellum. EXTRACRANIAL: The visualized portion of the orbits is intact. SKULL: The calvaria is intact. No evidence of skull fracture. CONCLUSION: No bleed or other acute intracranial abnormality. 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 Wilberto Sosa MD on January 03, 2017 at 22:13 Board Certified Radiologist. This report was verified electronically.
[2017-01-03 22:21] LABS: ANION GAP 10 MEQ/L (5-15); AST (GOT) 35 U/L (15-37); BICARBONATE 27.5 MEQ/L (21.0-32.0); BLOOD UREA NITROGEN 14 MG/DL (7-18); CHLORIDE 97 MEQ/L (98-107); GLOMERULAR FILTRATION RATE 65 ML/MIN (>89); MAGNESIUM 1.8 MG/DL (1.5-2.5); POTASSIUM 4.6 MEQ/L (3.5-5.1); SODIUM (NA) 134 MEQ/L (136-145)
[2017-01-03 22:36] LABS: ALKALINE PHOSPHATASE 99 U/L (45-117); ALT (GPT) 27 U/L (12-78); CREATINE KINASE 1645 U/L (39-308); TOTAL BILIRUBIN ADULT 0.4 MG/DL (0.2-1.0)
--- NOTE | 2017-01-03 22:37 | RADRPT ---
EXAM DATE/TIME: 01/03/2017 21:58 [facility] COMPARISON: CT THORACIC SPINE W/O CONTRAST, September 04, 2014, 18:44. INDICATIONS : Trauma, fall. RADIATION DOSE: 32.77 CTDIvol (mGy) ; Combined studies - Thoracic Spine/Lumbar Spine MEDICAL HISTORY : Cardiovascular disease. Hypertension. Gastroesophageal reflux disease.Asthma. SURGICAL HISTORY : Cholecystectomy. Fusion, lumbar.Gastic sleeve. ENCOUNTER: Initial ACUITY: 1 day PAIN SCALE: 6/10 LOCATION: thoracic TECHNIQUE: Volumetric scanning of the thoracic spine was performed. Multiplanar reconstructions in the sagittal , coronal and oblique axial planes were performed. Using automated exposure control and adjustment o f the mA and/or kV according to patient size, radiation dose was kept as low as reasonably achievable to obtain optimal diagnostic quality images. DICOM format image data is available electronically f or review and comparison. FINDINGS: There are no subluxations of the thoracic spine. Vertebral bodies have normal height. No cortical maria ines ak or trabecular disruption. Mild disc space narrowing with anterior and lateral osseous ridging seen at each level from T7/T8-T11 /T12. Spinal stimulator present, lead tips at the level of T8. A small pleural effusion with patchy atelectasis seen on the right. Scattered granulomata are noted. No pneumothorax of the visualized lungs. CONCLUSION: Degenerative changes without fracture or subluxation or other acute abnormality of the thoracic spine .. Atelectasis and small pleural effusion on the right. Wilberto Sosa MD on January 03, 2017 at 22:31 Board Certified Radiologist. This report was verified electronically.
--- NOTE | 2017-01-03 22:40 | RADRPT ---
EXAM DATE/TIME: 01/03/2017 22:01 [facility] COMPARISON: No previous studies available for comparison. INDICATIONS : Trauma, fall. RADIATION DOSE: 32.77 CTDIvol (mGy) ; Combined studies - Thoracic Spine/Lumbar Spine MEDICAL HISTORY : Hypertension. Gastroesophageal reflux disease. Cardiovascular diseaseAsthma. SURGICAL HISTORY : Cholecystectomy. Fusion, lumbar.Gastric sleeve. ENCOUNTER: Initial ACUITY: 1 day PAIN SCALE: 6/10 LOCATION: lumbar TECHNIQUE: Volumetric scanning of the lumbar spine was performed. Multiplanar reconstructions in the sagittal, coronal and oblique axial planes were performed. Using automated exposure control and adjustment of the mA and/or kV according to patient size, radiation dose was kept as low as reasonably achievable t o obtain optimal diagnostic quality images. DICOM format image data is available electronically for review and comparison. FINDINGS: No subluxation of the lumbar spine. Vertebral bodies have normal height. No cortical break or trabecu lar disruption. Previous fusion procedure with interbody and posterior instrumentation from L3-S1. There is solid emelia earing bony bridging at L4/L5 and L5/S1. There is some bony bridging across the posterior elements at L3/L4 but not across the intervertebral disc space. There is moderate bilateral facet osteoarthritis at L2/L3. CONCLUSION: Surgical and degenerative changes as above. No fracture or subluxation of the lumbar spine. Wilberto Sosa MD on January 03, 2017 at 22:36 Board Certified Radiologist. This report was verified electronically.
[2017-01-03] MEDS ORDERED: SODIUM CHLOR 0.9% 1000 ML INJ 1,000 ML IV SCH (22:45)
[2017-01-03 22:48] LABS: CKMB 12.9 NG/ML (0.5-3.6)
[2017-01-03 23:00] VITALS: BP 148/78; PULSE 85; RESP 16; O2SAT 98
--- NOTE | 2017-01-03 23:13 | PD ---
Data Data Last Documented VS Vital Signs Date Time Temp Pulse Resp B/P (MAP) Pulse Ox O2 Delivery O2 Flow Rate FiO2 01/03/17 19:58 98.7 82 16 152/83 (106) 99 Room Air Orders Orders Electrocardiogram (01/03/17 21:16) Complete Blood Count With Diff (01/03/17 21:16) Comprehensive Metabolic Panel (01/03/17 21:16) Magnesium (Mg) (01/03/17 21:16) Ckmb (Isoenzyme) Profile (01/03/17 21:16) Troponin I (01/03/17 21:16) Chest, Single Ap (01/03/17 21:16) Ct Brain W/O Iv Contrast(Rout) (01/03/17 21:16) Ecg Monitoring (01/03/17 21:16) Iv Access Insert/Monitor (01/03/17 21:16) Oximetry (01/03/17 21:16) Sodium Chloride 0.9% Flush (Ns Flush) (01/03/17 21:30) Sodium Chlor 0.9% 1000 Ml Inj (Ns 1000 M (01/03/17 21:16) Ct Thor Spine W/O Contrast (01/03/17 ) Ct Lumb Spine W/O Contrast (01/03/17 ) Lipase (01/03/17 21:16) C Diff Toxin Pcr (01/03/17 21:16) CKMB (01/03/17 21:35) CKMB% (01/03/17 21:35) Sodium Chlor 0.9% 1000 Ml Inj (Ns 1000 M (01/03/17 22:45) Labs Laboratory Tests Test 01/03/17 21:35 White Blood Count 6.6 TH/MM3 Red Blood Count 4.49 MIL/MM3 Hemoglobin 13.7 GM/DL Hematocrit 39.8 % Mean Corpuscular Volume 88.7 FL Mean Corpuscular Hemoglobin 30.5 PG Mean Corpuscular Hemoglobin Concent 34.4 % Red Cell Distribution Width 16.0 % Platelet Count 218 TH/MM3 Mean Platelet Volume 7.9 FL Neutrophils (%) (Auto) 62.8 % Lymphocytes (%) (Auto) 21.1 % Monocytes (%) (Auto) 13.4 % Eosinophils (%) (Auto) 1.9 % Basophils (%) (Auto) 0.8 % Neutrophils # (Auto) 4.1 TH/MM3 Lymphocytes # (Auto) 1.4 TH/MM3 Monocytes # (Auto) 0.9 TH/MM3 Eosinophils # (Auto) 0.1 TH/MM3 Basophils # (Auto) 0.1 TH/MM3 CBC Comment DIFF FINAL Differential Comment Blood Urea Nitrogen 14 MG/DL Creatinine 1.19 MG/DL Random Glucose 294 MG/DL Total Protein 6.9 GM/DL Albumin 3.0 GM/DL Calcium Level 9.5 MG/DL Magnesium Level 1.8 MG/DL Alkaline Phosphatase 99 U/L Aspartate Amino Transf (AST/SGOT) 35 U/L Alanine Aminotransferase (ALT/SGPT) 27 U/L Total Bilirubin 0.4 MG/DL Sodium Level 134 MEQ/L Potassium Level 4.6 MEQ/L Chloride Level 97 MEQ/L Carbon Dioxide Level 27.5 MEQ/L Anion Gap 10 MEQ/L Estimat Glomerular Filtration Rate 65 ML/MIN Total Creatine Kinase 1645 U/L Creatine Kinase MB 12.9 NG/ML Creatine Kinase MB % 0.8 % Troponin I LESS THAN 0.02 NG/ML Lipase 125 U/L MDM Supervised Visit with PEDRO PABLO: Yes Narrative Course The history, exam, and medical decision-making in the associated midlevel provider note were completed with my assistance. I reviewed and agree with the findings presented. I attest that I had a [id number] encounter with the patient on the same day, and personally performed and documented my assessment and findings in the medical record. *My assessment and Findings: This is a 51-year-old male who presents to the emergency department having had a fall in the bathroom injuring his back. CT imaging is all reassuring. Labs are unremarkable except for a CPK of 1600. I talked to the patient and he evidently has had a chronically elevated CPK in the past of uncertain etiology. In the past has been attributed to statins but he is not currently on a statin. He has no myalgias, he is urinating normally and he is able to eat and drink. He was given 2 L of IV fluid in the emergency department. He has been having chronic diarrhea so I suspect some of it is in the setting of dehydration and some of it may be in the setting of his acute fall and difficulty getting up. I don't think he requires admission for this is his CPK is less than 5000. I think he is appropriate for outpatient management that he was given a copy of his labs and he will discuss it with his primary care physician on Thursday. Diagnosis Primary Impression: Lumbar contusion Qualified Codes: S30.0XXA - Contusion of lower back and pelvis, initial encounter Additional Impression: Elevated CPK Patient Instructions: General Instructions Additional Instruction: If you develop severe chest pain, shortness of breath, sweating, lightheadedness , dizziness or difficulty breathing return to the emergency department immediately. Drink lots of fluids in the next 48 hours and make sure your urine is clear. Follow-up with your primary care physician on Thursday. Med/Other Pt SpecificInfo: No Change to Meds Disposition: 01 DISCHARGE HOME Condition: Stable Helen Burgos MD Jan 03, 2017 23:13
--- NOTE | 2017-01-04 12:51 | EKG ---
Date Performed: 01/03/2017 Time Performed: 21:34:09 PTAGE: 51 years EKG: Sinus rhythm NORMAL ECG PREVIOUS TRACING : 10/26/2016 08.40 No significant change from previous tracing noted. DOCTOR: Wong Pickett Interpretating Date/Time 01/04/2017 12:50:14
== END 2017-01-03 23:56 | disposition home or self-care (01) ==
LOC: NEPC 19:55
DX: S30.0XXA Contusion of lower back and pelvis, initial encounter (principal); R74.8 Abnormal levels of other serum enzymes; I10 Essential (primary) hypertension; E11.9 Type 2 diabetes mellitus without complications; J45.909 Unspecified asthma, uncomplicated; E78.00 Pure hypercholesterolemia, unspecified; Z98.1 Arthrodesis status; W19.XXXA Unspecified fall, initial encounter; Y93.E8 Activity, other personal hygiene; Y92.002 Bathroom of unspecified non-institutional (private) residence as the place of occurrence of the external cause; Y99.8 Other external cause status
CPT/HCPCS: 70450; 71010; 72128; 72131; 80053; 82550; 82552; 83690; 83735; 84484; 85025; 93005; 99285; J7030

== ENCOUNTER 2017-01-19 09:42 | Emergency (ER) | payer OTHER ==
[~2017-01-19] VITALS: Ht 180.3 cm; Wt 150.0 kg
[2017-01-19 09:55] VITALS: BP 132/73; PULSE 108; RESP 18; TEMP 99.7; O2SAT 95
[2017-01-19] MEDS ORDERED: SODIUM CHLORIDE 0.9% FLUSH 10 ML FLUSH IVF PRN (10:30)
[2017-01-19 10:34] VITALS: RESP 16; O2SAT 95
[2017-01-19 11:05] LABS: AUTOMATED NEUTROPHIL # 7.6 TH/MM3 (1.8-7.7); BASOPHIL % 0.3 % (0.0-2.0); EOSINOPHIL % 0.3 % (0.0-4.0); HEMO FLAGS DIFF FINAL; LYMPH % 6.6 % (9.0-44.0); LYMPHOCYTE # 0.6 TH/MM3 (1.0-4.8); MEAN CELL VOLUME 88.9 FL (80.0-100.0); MEAN CORPUSCULAR HEMOGLOBIN 30.7 PG (27.0-34.0); MEAN CORPUSCULAR HGB CONC 34.5 % (32.0-36.0); NEUT % 79.8 % (16.0-70.0); PLATELET COUNT 133 TH/MM3 (150-450); RED BLOOD COUNT 4.28 MIL/MM3 (4.50-5.90); RED CELL DISTRIBUTION WIDTH 16.2 % (11.6-17.2); WHITE BLOOD COUNT 9.5 TH/MM3 (4.0-11.0)
[2017-01-19 11:23] LABS: ALT (GPT) 21 U/L (12-78); ANION GAP 7 MEQ/L (5-15); AST (GOT) 24 U/L (15-37); BICARBONATE 26.4 MEQ/L (21.0-32.0); BLOOD UREA NITROGEN 6 MG/DL (7-18); CHLORIDE 105 MEQ/L (98-107); GLOMERULAR FILTRATION RATE 70 ML/MIN (>89); MAGNESIUM 1.5 MG/DL (1.5-2.5); POTASSIUM 4.4 MEQ/L (3.5-5.1); SODIUM (NA) 138 MEQ/L (136-145)
[2017-01-19 11:27] LABS: ALKALINE PHOSPHATASE 81 U/L (45-117); CREATINE KINASE 598 U/L (39-308); TOTAL BILIRUBIN ADULT 0.5 MG/DL (0.2-1.0)
--- NOTE | 2017-01-19 11:27 | RADRPT ---
EXAM DATE/TIME: 01/19/2017 11:11 [facility] COMPARISON: CHEST SINGLE AP, January 03, 2017, 21:33. INDICATIONS : Bilateral rib pain, no known trauma MEDICAL HISTORY : None. SURGICAL HISTORY : None. ENCOUNTER: Initial ACUITY: 3 weeks PAIN SCORE: Non-responsive. LOCATION: Bilateral chest FINDINGS: The cardiac silhouette is normal in transverse diameter. The left lung is free of acute parenchymal o pacity. There is alveolar disease in the right base may reflect small air pneumonia. Followup examina tion is recommended if clinically indicated. No pleural effusions are identified. CONCLUSION: 1. Possible right basilar pneumonia. Followup examination is recommended if clinically indicated. Russell Pat MD on January 19, 2017 at 11:25 Board Certified Radiologist. This report was verified electronically.
[2017-01-19 11:28] VITALS: BP 142/74; PULSE 102; RESP 16; O2SAT 95
[2017-01-19 11:42] LABS: BLOOD, URINE NEG (NEG); COMMENT (UR) CULT NOT INDICATED; CULTURE IF INDICATED CULT NOT INDICATED; GLUCOSE,URINE NEG (NEG); KETONE, URINE 10 mg/dL (NEG); MUCUS URINE FEW /lpf (OCC); NITRITE,URINE NEG (NEG); PH, URINE 7.5 (5.0-8.5); URINE COLOR YELLOW (YELLW/STRAW)
[2017-01-19] MEDS ORDERED: SODIUM CHLOR 0.9% 1000 ML INJ 1,000 ML IV ONE (12:00)
[2017-01-19] MEDS ORDERED: METR-1 PO (12:28)
--- NOTE | 2017-01-19 12:29 | PD ---
HPI Chief Complaint: General Weakness Time Seen by Provider: 10:46 Travel History International Travel<30 days: No Contact w/Intl Traveler<30days: No Traveled to known affect area: No History of Present Illness HPI 51-year-old male with history of drug-induced Parkinson's, high cholesterol, hypertension, recently admitted for pneumonia, had been on antibiotics for some time, presents to the ER today brought in by mom because he apparently has been complaining of general weakness and last night was fairly lethargic after taking his morphine. He apparently had to be helped back into bed by mom. He states that he has had diarrhea for about 10 days after taking antibiotics, has about 3-4 stools a day, denies any vomiting, fevers, or any other symptoms. Modifying Factors: None Associated Signs & Symptoms: General weakness, worse last night, diarrhea Risk Factors: On morphine, recent antibiotics PFSH Past Medical History Arthritis: Yes (RHEUMATOID ) Asthma: Yes Autoimmune Disease: No Blood Disorders: No Bipolar Disorder: Yes Anxiety: Yes Depression: Yes Heart Rhythm Problems: No Cancer: Yes (THYROID) Cardiac Catheterization: Yes (2006) Cardiovascular Problems: Yes High Cholesterol: Yes Chemotherapy: No Chest Pain: No Congestive Heart Failure: No COPD: No Cerebrovascular Accident: No Diabetes: Yes Patient Takes Glucophage: No Diminished Hearing: No Endocrine: Yes (HYPOALDOSTORISM, THYROIDECTOMY) Gastrointestinal Disorders: Yes (GERD, GASTRIC SLEEVE) GERD: Yes Genitourinary: No Headaches: No Hepatitis: No Hiatal Hernia: No Hypertension: Yes Immune Disorder: No Implanted Vascular Access Dvce: Yes Musculoskeletal: Yes (LUMBAR FUSION/ NERVE STIM) Neurologic: Yes Psychiatric: Yes (CLAUSTROPHOBIC) Reproductive: No Respiratory: Yes Immunizations Current: Yes Migraines: No Myocardial Infarction: No Pneumonia: Yes Radiation Therapy: Yes Renal Failure: No Seizures: No Sleep Apnea: Yes (USES CPAP) Thyroid Disease: Yes Ulcer: No Past Surgical History Abdominal Surgery: Yes AICD: No Arteriovenous Shunt: No Body Medical Devices: LOWER BACK TITANIUM SCREWS AND RODS, SPINAL CORD STIMULATOR Cardiac Surgery: No Cholecystectomy: Yes Ear Surgery: No Endocrine Surgery: Yes (THYROIDECTOMY) Eye Surgery: No Genitourinary Surgery: Yes (1999 VASECTOMY) Gynecologic Surgery: Yes Insulin Pump: Yes Joint Replacement: No Neurologic Surgery: Yes (LUMBAR FUSION, SPINAL STIMULATOR IMPL.) Oral Surgery: No Pacemaker: No Thoracic Surgery: No Other Surgery: Yes (EX. SCAR FOOT, ARTHROSCOPY RIGHT KNEE, NEUROSTEM STENT IN AND REMOVED,) Social History Alcohol Use: No Tobacco Use: No Substance Use: No Allergies-Medications (Allergen,Severity, Reaction): Coded Allergies: cholestyramine (Unverified Allergy, Mild, NAUSEA, 01/19/17) diltiazem (Unverified Allergy, Mild, Edema, 01/19/17) enalaprilat (Unverified Allergy, Mild, Cough, 01/19/17) isradipine (Unverified Allergy, Mild, Edema, 01/19/17) nicardipine (Unverified Allergy, Mild, Edema, 01/19/17) nifedipine (Unverified Allergy, Mild, Edema, 01/19/17) nimodipine (Unverified Allergy, Mild, Edema, 01/19/17) verapamil (Unverified Allergy, Mild, Edema, 01/19/17) amlodipine (Unverified Allergy, Unknown, enlarged liver, 01/19/17) atorvastatin (Unverified Allergy, Unknown, enlarged liver, 01/19/17) pravastatin (Unverified Allergy, Unknown, enlarged liver, 01/19/17) simvastatin (Unverified Allergy, Unknown, enlarged liver, 01/19/17) *MDRO Multi-Drug Resistant Organism (Verified Adverse Reaction, Unknown, 01/19/17) MRSA (sputum) 10/27/16 Reported Meds & Prescriptions Reported Meds & Active Scripts Active Flagyl (Metronidazole) 500 Mg Tab 500 Mg PO TID 7 Days Hm Loperamide HCl (Loperamide HCl) 2 Mg Cap 2 Mg PO Q4H PRN 5 Days Dextromethorphan/Guaifene 10-100 mg/5Ml (Dextromethorphan-Guaifenesin) 1 Syp Syp 5 Ml PO Q6H PRN 10 Days Gas Relief Maximum Streng (Simethicone) 125 Mg Chw 125 Mg PO Q8HR 30 Days Cleocin (Clindamycin HCl) 150 Mg Cap 300 Mg PO Q8HR 7 Days Morphine ER (Morphine Sulfate) 15 Mg Tab 15 Mg PO BID Pantoprazole (Pantoprazole Sodium) 40 Mg Tab 40 Mg PO BID NEB Aspirin EC (Aspirin) 81 Mg Tabdr 81 Mg PO DAILY Reported Cytomel (Liothyronine Sodium) 5 Mcg Tablet 10 Mcg PO BID Vitamin D3 (Cholecalciferol) 50,000 Unit Cap 50,000 Units PO 2XWEEK Mobic (Meloxicam) 15 Mg Tab 15 Mg PO DAILY Take with food Seroquel (Quetiapine Fumarate) 25 Mg Tab 125 Mg PO HS Gabapentin 400 Mg Cap 800 Cap PO TID Breo Ellipta Inh (Fluticasone/Vilanterol) 200-25 Mcg/Act Inh 1 Puff INH DAILY Use daily at the same time. Latuda (Lurasidone) 40 Mg Tab 40 Mg PO DAILY Spironolactone 50 Mg Tab 100 Mg PO BID Ventolin Hfa 18 GM Inh (Albuterol Sulfate) 90 Mcg/Act Aer 2 Puff INH Q4H PRN Chewable Calcium (Calcium Carbonate) 500 Mg Chw 500 Mg PO BID Depakote ER (Divalproex Sodium) 500 Mg Khanh 2,500 Mg PO HS Humulin R U-500 (Concentrate) Inj (Insulin Regular (Human) Concentrate Inj) 10, 000 Unit/20 Ml Vial VIA INSULIN PUMP Levothyroxine (Levothyroxine Sodium) 125 Mcg Tab 250 Mcg PO DAILY Metoprolol Tartrate 100 Mg Tab 200 Mg PO BID Imitrex (Sumatriptan Succinate) 100 Mg Tab 100 Mg PO ONCE PRN If a satisfactory response has not been obtained at 2 hours, a second dose may be administered Review of Systems Except as stated in HPI: all other systems reviewed are Neg Physical Exam Narrative GENERAL: Well-developed middle age white male patient currently in mild distress. Awake and oriented 3. SKIN: Focused skin assessment warm/dry. HEAD: Atraumatic. Normocephalic. EYES: Pupils equal and round. No scleral icterus. No injection or drainage. ENT: No nasal bleeding or discharge. Mucous membranes pink and moist. NECK: Trachea midline. No JVD. CARDIOVASCULAR: Regular rate and rhythm. No murmur appreciated. RESPIRATORY: No accessory muscle use. Clear to auscultation. Breath sounds equal bilaterally. GASTROINTESTINAL: Abdomen soft, non-tender, nondistended. Hepatic and splenic margins not palpable. MUSCULOSKELETAL: No obvious deformities. No clubbing. No cyanosis. No edema. NEUROLOGICAL: Awake and alert. No obvious cranial nerve deficits. Motor grossly within normal limits. Normal speech. PSYCHIATRIC: Appropriate mood and affect; insight and judgment normal. Data Data Last Documented VS Vital Signs Date Time Temp Pulse Resp B/P (MAP) Pulse Ox O2 Delivery O2 Flow Rate FiO2 01/19/17 11:28 102 16 142/74 (96) 95 Room Air 01/19/17 09:55 99.7 Orders Orders Electrocardiogram (01/19/17 10:30) Complete Blood Count With Diff (01/19/17 10:30) Comprehensive Metabolic Panel (01/19/17 10:30) Magnesium (Mg) (01/19/17 10:30) Ckmb (Isoenzyme) Profile (01/19/17 10:30) Troponin I (01/19/17 10:30) Urinalysis - C+S If Indicated (01/19/17 10:30) Ecg Monitoring (01/19/17 10:30) Iv Access Insert/Monitor (01/19/17 10:30) Oximetry (01/19/17 10:30) Sodium Chloride 0.9% Flush (Ns Flush) (01/19/17 10:30) Chest, Single Ap (01/19/17 10:46) CKMB (01/19/17 10:40) CKMB% (01/19/17 10:40) Sodium Chlor 0.9% 1000 Ml Inj (Ns 1000 M (01/19/17 12:00) Valproic Acid (Depakene) (01/19/17 12:30) Labs Laboratory Tests Test 01/19/17 10:40 01/19/17 11:27 White Blood Count 9.5 TH/MM3 Red Blood Count 4.28 MIL/MM3 Hemoglobin 13.1 GM/DL Hematocrit 38.0 % Mean Corpuscular Volume 88.9 FL Mean Corpuscular Hemoglobin 30.7 PG Mean Corpuscular Hemoglobin Concent 34.5 % Red Cell Distribution Width 16.2 % Platelet Count 133 TH/MM3 Mean Platelet Volume 9.3 FL Neutrophils (%) (Auto) 79.8 % Lymphocytes (%) (Auto) 6.6 % Monocytes (%) (Auto) 13.0 % Eosinophils (%) (Auto) 0.3 % Basophils (%) (Auto) 0.3 % Neutrophils # (Auto) 7.6 TH/MM3 Lymphocytes # (Auto) 0.6 TH/MM3 Monocytes # (Auto) 1.2 TH/MM3 Eosinophils # (Auto) 0.0 TH/MM3 Basophils # (Auto) 0.0 TH/MM3 CBC Comment DIFF FINAL Differential Comment Blood Urea Nitrogen 6 MG/DL Creatinine 1.11 MG/DL Random Glucose 144 MG/DL Total Protein 6.1 GM/DL Albumin 2.7 GM/DL Calcium Level 8.9 MG/DL Magnesium Level 1.5 MG/DL Alkaline Phosphatase 81 U/L Aspartate Amino Transf (AST/SGOT) 24 U/L Alanine Aminotransferase (ALT/SGPT) 21 U/L Total Bilirubin 0.5 MG/DL Sodium Level 138 MEQ/L Potassium Level 4.4 MEQ/L Chloride Level 105 MEQ/L Carbon Dioxide Level 26.4 MEQ/L Anion Gap 7 MEQ/L Estimat Glomerular Filtration Rate 70 ML/MIN Total Creatine Kinase 598 U/L Creatine Kinase MB 3.0 NG/ML Creatine Kinase MB % 0.5 % Troponin I LESS THAN 0.02 NG/ML Valproic Acid (Depakene) Level 107 MCG/ML Urine Color YELLOW Urine Turbidity CLEAR Urine pH 7.5 Urine Specific [place] 1.017 Urine Protein NEG mg/dL Urine Glucose (UA) NEG mg/dL Urine Ketones 10 mg/dL Urine Occult Blood NEG Urine Nitrite NEG Urine Bilirubin NEG Urine Urobilinogen LESS THAN 2.0 MG/DL Urine Leukocyte Esterase SMALL Urine RBC 1 /hpf Urine WBC 5 /hpf Urine Mucus FEW /lpf Microscopic Urinalysis Comment CULT NOT INDICATED MDM Medical Decision Making Medical Screen Exam Complete: Yes Emergency Medical Condition: Yes Medical Record Reviewed: Yes Interpretation(s) EKG shows sinus tachycardia rate of 100 bpm, no ST elevation or depression, and no arrhythmias. No significant T-wave inversions. Laboratory Tests Test 01/19/17 10:40 01/19/17 11:27 Red Blood Count 4.28 MIL/MM3 (4.50-5.90) Hematocrit 38.0 % (39.0-51.0) Platelet Count 133 TH/MM3 (150-450) Neutrophils (%) (Auto) 79.8 % (16.0-70.0) Lymphocytes (%) (Auto) 6.6 % (9.0-44.0) Monocytes (%) (Auto) 13.0 % (0.0-8.0) Lymphocytes # (Auto) 0.6 TH/MM3 (1.0-4.8) Monocytes # (Auto) 1.2 TH/MM3 (0-0.9) Blood Urea Nitrogen 6 MG/DL (7-18) Random Glucose 144 MG/DL (74-106) Total Protein 6.1 GM/DL (6.4-8.2) Albumin 2.7 GM/DL (3.4-5.0) Estimat Glomerular Filtration Rate 70 ML/MIN (>89) Total Creatine Kinase 598 U/L (39-308) Troponin I LESS THAN 0.02 NG/ML Urine Ketones 10 mg/dL (NEG) Urine Leukocyte Esterase SMALL (NEG) Urine Mucus FEW /lpf (OCC) Differential Diagnosis Dehydration versus metabolic issues versus sepsis versus C. difficile diarrhea Narrative Course Abdomen is fairly benign and I do not suspect an acute intra-abdominal process. Considering he has recently been on antibiotics, there is concern about C. difficile diarrhea. Patient is supposed to follow-up with Drs. Cowan regarding this issue. Patient was given IV fluids in the ER. Lab work was otherwise unremarkable for any significant dehydration or metabolic issue. His Depakote level is 107, patient just took his Depakote this morning and this is fairly close to the normal 100. I do not suspect that this is the cause of his current symptoms. Patient has been on morphine as well and I suspect that medication side effect may be part of his weakness. He may need to get reevaluation of his medications. My plan would be to give him Flagyl regarding the diarrhea as well for possible C. difficile. Patient states he had taken off of the amoxicillin which she had been prescribed earlier as well. He should follow-up with primary care physician and GI. Return for worsening in symptoms as necessary. The plan has been discussed with him and he states understanding. Diagnosis Primary Impression: General weakness Additional Impression: Diarrhea Med/Other Pt SpecificInfo: Prescription(s) given Scripts Metronidazole (Flagyl) 500 Mg Tab 500 MG PO TID for Infection for 7 Days, TAB 0 Refills Prov: Carol Benitez MD 01/19/17 Disposition: 01 DISCHARGE HOME Condition: Stable Carol Benitez MD Jan 19, 2017 12:28
--- NOTE | 2017-01-19 15:59 | EKG ---
Date Performed: 01/19/2017 Time Performed: 10:52:38 PTAGE: 51 years EKG: SINUS TACHYCARDIA INFERIOR MYOCARDIAL INFARCTION ABNORMAL ECG PREVIOUS TRACING : 01/03/2017 21.34 Compared to prior tracing no significant change DOCTOR: Vinny Mederos Interpretating Date/Time 01/19/2017 15:59:01
== END 2017-01-19 13:45 | disposition home or self-care (01) ==
LOC: NEPE 09:42
DX: R53.1 Weakness (principal); R19.7 Diarrhea, unspecified; R00.0 Tachycardia, unspecified; R94.31 Abnormal electrocardiogram [ECG] [EKG]; G20 Parkinson's disease; E78.00 Pure hypercholesterolemia, unspecified; I10 Essential (primary) hypertension; M06.9 Rheumatoid arthritis, unspecified; E11.9 Type 2 diabetes mellitus without complications
CPT/HCPCS: 71010; 80053; 80164; 81001; 82550; 82552; 83735; 84484; 85025; 93005; 99285; J7030

== ENCOUNTER 2017-01-27 08:50 | Inpatient (IN) | payer OTHER ==
[~2017-01-27 08:50] MED LIST changes: +METR-1 PO
[2017-01-27 08:55] VITALS: BP 159/74; PULSE 113; RESP 20; TEMP 103; O2SAT 91
--- NOTE | 2017-01-27 09:08 | PD ---
HPI Chief Complaint: Fever Time Seen by Provider: 09:02 Travel History International Travel<30 days: No Contact w/Intl Traveler<30days: No Traveled to known affect area: No History of Present Illness HPI 51yo M with PMH of Bipolar disorder, hyothyroid, HLD, HTN, DM on insulin pump presents to the ED with c/o generalized weakness, diarrhea and fever for a few days. Pt was seen here on 01/19/17 for generalized weakness and diarrhea and was given flagyl for possible cdiff given recent antibiotic for pneumonia. Pt states he did not get the prescription. Denies any headache, cough, chest pain , sob, n/v, abdominal pain, focal weakness or numbness. Pt is AAOx3 but seemed a little confused answering some questions. Appears dehydrated. Pt was febrile at 103F and hypoxic at 91% on RA so placed on 2 L NC. PFSH Past Medical History Arthritis: Yes (RHEUMATOID ) Asthma: Yes Autoimmune Disease: No Blood Disorders: No Bipolar Disorder: Yes Anxiety: Yes Depression: Yes Heart Rhythm Problems: No Cancer: Yes (THYROID) Cardiac Catheterization: Yes (2006) Cardiovascular Problems: Yes High Cholesterol: Yes Chemotherapy: No Chest Pain: No Congestive Heart Failure: No COPD: No Cerebrovascular Accident: No Diabetes: Yes Diminished Hearing: No Endocrine: Yes (HYPOALDOSTORISM, THYROIDECTOMY) Gastrointestinal Disorders: Yes (GERD, GASTRIC SLEEVE) GERD: Yes Genitourinary: No Headaches: No Hepatitis: No Hiatal Hernia: No Hypertension: Yes Immune Disorder: No Implanted Vascular Access Dvce: Yes Musculoskeletal: Yes (LUMBAR FUSION/ NERVE STIM) Neurologic: Yes Psychiatric: Yes (CLAUSTROPHOBIC) Reproductive: No Respiratory: Yes Immunizations Current: Yes Migraines: No Myocardial Infarction: No Pneumonia: Yes Radiation Therapy: Yes Renal Failure: No Seizures: No Sleep Apnea: Yes (USES CPAP) Thyroid Disease: Yes Ulcer: No Past Surgical History Abdominal Surgery: Yes AICD: No Arteriovenous Shunt: No Body Medical Devices: LOWER BACK TITANIUM SCREWS AND RODS, SPINAL CORD STIMULATOR Cardiac Surgery: No Cholecystectomy: Yes Ear Surgery: No Endocrine Surgery: Yes (THYROIDECTOMY) Eye Surgery: No Genitourinary Surgery: Yes (1999 VASECTOMY) Gynecologic Surgery: Yes Insulin Pump: Yes Joint Replacement: No Neurologic Surgery: Yes (LUMBAR FUSION, SPINAL STIMULATOR IMPL.) Oral Surgery: No Pacemaker: No Thoracic Surgery: No Other Surgery: Yes (EX. SCAR FOOT, ARTHROSCOPY RIGHT KNEE, NEUROSTEM STENT IN AND REMOVED,) Social History Alcohol Use: No Tobacco Use: No Substance Use: No Allergies-Medications (Allergen,Severity, Reaction): Coded Allergies: cholestyramine (Verified Allergy, Mild, NAUSEA, 01/27/17) diltiazem (Verified Allergy, Mild, Edema, 01/27/17) enalaprilat (Verified Allergy, Mild, Cough, 01/27/17) isradipine (Verified Allergy, Mild, Edema, 01/27/17) latex (Verified Allergy, Mild, Rash, 01/27/17) nicardipine (Verified Allergy, Mild, Edema, 01/27/17) nifedipine (Verified Allergy, Mild, Edema, 01/27/17) nimodipine (Verified Allergy, Mild, Edema, 01/27/17) verapamil (Verified Allergy, Mild, Edema, 01/27/17) amlodipine (Verified Allergy, Unknown, enlarged liver, 01/27/17) atorvastatin (Verified Allergy, Unknown, enlarged liver, 01/27/17) pravastatin (Verified Allergy, Unknown, enlarged liver, 01/27/17) simvastatin (Verified Allergy, Unknown, enlarged liver, 01/27/17) *MDRO Multi-Drug Resistant Organism (Verified Adverse Reaction, Unknown, 01/27/17) MRSA (sputum) 10/27/16 Reported Meds & Prescriptions Reported Meds & Active Scripts Active Flagyl (Metronidazole) 500 Mg Tab 500 Mg PO TID 7 Days Hm Loperamide HCl (Loperamide HCl) 2 Mg Cap 2 Mg PO Q4H PRN 5 Days Dextromethorphan/Guaifene 10-100 mg/5Ml (Dextromethorphan-Guaifenesin) 1 Syp Syp 5 Ml PO Q6H PRN 10 Days Gas Relief Maximum Streng (Simethicone) 125 Mg Chw 125 Mg PO Q8HR 30 Days Cleocin (Clindamycin HCl) 150 Mg Cap 300 Mg PO Q8HR 7 Days Morphine ER (Morphine Sulfate) 15 Mg Tab 15 Mg PO BID Pantoprazole (Pantoprazole Sodium) 40 Mg Tab 40 Mg PO BID NEB Aspirin EC (Aspirin) 81 Mg Tabdr 81 Mg PO DAILY Reported Cytomel (Liothyronine Sodium) 5 Mcg Tablet 10 Mcg PO BID Vitamin D3 (Cholecalciferol) 50,000 Unit Cap 50,000 Units PO 2XWEEK Mobic (Meloxicam) 15 Mg Tab 15 Mg PO DAILY Take with food Seroquel (Quetiapine Fumarate) 25 Mg Tab 125 Mg PO HS Gabapentin 400 Mg Cap 800 Cap PO TID Breo Ellipta Inh (Fluticasone/Vilanterol) 200-25 Mcg/Act Inh 1 Puff INH DAILY Use daily at the same time. Latuda (Lurasidone) 40 Mg Tab 40 Mg PO DAILY Spironolactone 50 Mg Tab 100 Mg PO BID Ventolin Hfa 18 GM Inh (Albuterol Sulfate) 90 Mcg/Act Aer 2 Puff INH Q4H PRN Chewable Calcium (Calcium Carbonate) 500 Mg Chw 500 Mg PO BID Depakote ER (Divalproex Sodium) 500 Mg Khanh 2,500 Mg PO HS Humulin R U-500 (Concentrate) Inj (Insulin Regular (Human) Concentrate Inj) 10, 000 Unit/20 Ml Vial VIA INSULIN PUMP Levothyroxine (Levothyroxine Sodium) 125 Mcg Tab 250 Mcg PO DAILY Metoprolol Tartrate 100 Mg Tab 200 Mg PO BID Imitrex (Sumatriptan Succinate) 100 Mg Tab 100 Mg PO ONCE PRN If a satisfactory response has not been obtained at 2 hours, a second dose may be administered Review of Systems Except as stated in HPI: all other systems reviewed are Neg Physical Exam Narrative GENERAL: 51yo M in mild distress. SKIN: Focused skin assessment warm/dry. HEAD: Atraumatic. Normocephalic. EYES: Pupils equal and round. No scleral icterus. No injection or drainage. ENT: No nasal bleeding or discharge. Mucous membranes pink and moist. NECK: Trachea midline. No JVD. CARDIOVASCULAR: Mildly tachycardic. No murmur appreciated. RESPIRATORY: No accessory muscle use. Clear to auscultation. Breath sounds equal bilaterally. GASTROINTESTINAL: Abdomen soft, non-tender, nondistended. No rebound tenderness or guarding. MUSCULOSKELETAL: No obvious deformities. No clubbing. No cyanosis. No edema. NEUROLOGICAL: Awake and alert. No obvious cranial nerve deficits. Motor grossly within normal limits. Normal speech. Data Data Last Documented VS Vital Signs Date Time Temp Pulse Resp B/P (MAP) Pulse Ox O2 Delivery O2 Flow Rate FiO2 01/27/17 11:31 100.4 99 16 136/72 (93) 94 Nasal Cannula 2.00 Orders Orders Complete Blood Count With Diff (01/27/17 09:02) Basic Metabolic Panel (Bmp) (01/27/17 09:02) Prothrombin Time / Inr (Pt) (01/27/17 09:02) Act Partial Throm Time (Ptt) (01/27/17 09:02) Blood Culture (01/27/17 09:02) Lactic Acid Sepsis Protocol (01/27/17 09:02) Urinalysis - C+S If Indicated (01/27/17 09:02) Chest, Single Ap (01/27/17 ) Valproic Acid (Depakene) (01/27/17 09:02) Acetaminophen (Tylenol) (01/27/17 09:15) Sodium Chlor 0.9% 1000 Ml Inj (Ns 1000 M (01/27/17 09:15) Sodium Chlor 0.9% 1000 Ml Inj (Ns 1000 M (01/27/17 09:15) Alcohol (Ethanol) (01/27/17 09:08) Ammonia (01/27/17 09:08) Thyroid Stimulating Hormone (01/27/17 09:08) Drug Screen, Random Urine (01/27/17 09:08) Troponin I (01/27/17 09:10) Ceftriaxone Inj (Rocephin Inj) (01/27/17 10:00) Azithromycin (Zithromax) (01/27/17 10:00) Thyroxine (T4) (01/27/17 10:22) C Diff Toxin Pcr (01/27/17 10:59) Ct Thorax/ Chest Wo Iv Contras (01/27/17 ) Admit To Inpatient (01/27/17 ) Code Status (01/27/17 11:45) Vital Signs (Adult) Q4H (01/27/17 11:45) Activity Oob With Assistance (01/27/17 11:45) Part Time Receptionist / Telemetry .CONTINUOUS (01/27/17 11:45) Diet Heart Healthy (01/27/17 Lunch) Sodium Chloride 0.9% Flush (Ns Flush) (01/27/17 11:45) Sodium Chloride 0.9% Flush (Ns Flush) (01/27/17 21:00) Acetaminophen (Tylenol) (01/27/17 16:00) Ondansetron Inj (Zofran Inj) (01/27/17 18:00) Temazepam (Restoril) (01/27/17 21:00) Basic Metabolic Panel (Bmp) (01/28/17 06:00) Complete Blood Count With Diff (01/28/17 06:00) Chest, Pa & Lat (01/28/17 08:00) Electrocardiogram (01/27/17 11:45) Resp Oxygen Art C Titrat 1-4 L (01/27/17 ) Pt Request For Service (01/27/17 11:45) Enoxaparin Inj (Lovenox Inj) (01/27/17 14:00) Naloxone Inj (Narcan Inj) (01/27/17 11:45) Magnesium Hydroxide Liq (Milk Of Magnesi (01/27/17 21:00) Inpatient Certification (01/27/17 ) Ns + Kcl 20 Meq Inj (Ns + Kcl 20 Meq Inj (01/27/17 12:00) Ceftriaxone Inj (Rocephin Inj) (01/28/17 10:00) Azithromycin (Zithromax) (01/28/17 09:00) Albuterol Hfa Inh (Proair Hfa Inh) (01/27/17 16:00) Aspirin Ec (Ecotrin Ec) (01/28/17 09:00) Fluticasone-Vilant 200-25 Inh (Breo Tere (01/28/17 09:00) Gabapentin (Neurontin) (01/27/17 13:00) Levothyroxine (Synthroid) (01/28/17 06:00) Liothyronine (Cytomel) (01/27/17 21:00) Lurasidone (Latuda) (01/28/17 09:00) Metoprolol Tartrate (Lopressor) (01/27/17 21:00) Morphine Sr (Oramorph Sr) (01/27/17 21:00) Pantoprazole (Protonix) (01/27/17 21:00) Spironolactone (Aldactone) (01/27/17 21:00) Sumatriptan Succinate (Imitrex) (01/27/17 13:00) ^ Other Nursing Orders (01/27/17 11:58) Consult Psychiatry (01/27/17 ) Admit Order (Ed Use Only) (01/27/17 12:03) Quetiapine (Seroquel) (01/27/17 21:00) Divalproex Er (Depakote Er) (01/27/17 21:00) Labs Laboratory Tests Test 01/27/17 09:10 White Blood Count 8.0 TH/MM3 Red Blood Count 4.12 MIL/MM3 Hemoglobin 12.6 GM/DL Hematocrit 36.5 % Mean Corpuscular Volume 88.8 FL Mean Corpuscular Hemoglobin 30.5 PG Mean Corpuscular Hemoglobin Concent 34.4 % Red Cell Distribution Width 16.0 % Platelet Count 123 TH/MM3 Mean Platelet Volume 8.0 FL Neutrophils (%) (Auto) 78.5 % Lymphocytes (%) (Auto) 6.9 % Monocytes (%) (Auto) 13.3 % Eosinophils (%) (Auto) 1.2 % Basophils (%) (Auto) 0.1 % Neutrophils # (Auto) 6.3 TH/MM3 Lymphocytes # (Auto) 0.6 TH/MM3 Monocytes # (Auto) 1.1 TH/MM3 Eosinophils # (Auto) 0.1 TH/MM3 Basophils # (Auto) 0.0 TH/MM3 CBC Comment DIFF FINAL Differential Comment Prothrombin Time 11.2 SEC Prothromb Time International Ratio 1.0 RATIO Activated Partial Thromboplast Time 28.5 SEC Blood Urea Nitrogen 8 MG/DL Creatinine 0.98 MG/DL Random Glucose 129 MG/DL Calcium Level 8.7 MG/DL Sodium Level 137 MEQ/L Potassium Level 4.0 MEQ/L Chloride Level 102 MEQ/L Carbon Dioxide Level 26.2 MEQ/L Anion Gap 9 MEQ/L Estimat Glomerular Filtration Rate 81 ML/MIN Lactic Acid Level 1.8 mmol/L Ammonia 38 MCMOL/L Troponin I LESS THAN 0.02 NG/ML Thyroxine (T4) 5.0 MCG/DL Thyroid Stimulating Hormone 3rd Gen 22.700 uIU/ML Valproic Acid (Depakene) Level 92 MCG/ML Ethyl Alcohol Level LESS THAN 3 MG/DL [facility] Medical Decision Making Medical Screen Exam Complete: Yes Emergency Medical Condition: Yes Interpretation(s) EKG: Sinus tachycardia at 110bpm. Q wave III, aVF, unchanged from prior. No ST segment elevation or depression. Differential Diagnosis Sepsis secondary to pneumonia vs. cdiff vs. urosepsis vs. dehydration Narrative Course 51yo M here with fever and generalized weakness. Pt is AAOx3 but seems a bit confused with some of the questions. Mother is at bedside and said he is better but still not back to baseline. Pt initially febrile at 103F and tachycardic at 113bpm. He was hypoxic at 91% on RA and does not use oxygen at home. Pt placed on 2L NC and saturating 94%. Pt given acetaminophen and NS IVF x2. Labs reviewed, no leukocytosis. Lactic acid normal at 1.8. Ammonia mildly elevated at 38. TSH is elevated at 22.7. T4 added. Troponin negative. Glucose 129. Alcohol negative. Valproic acid level therapeutic. CXR showed hypoaerated lungs with minimal airspace disease in right base. Pt states he was last admitted for pneumonia 4 months ago. Pt given ceftriaxone and azithromycin. Discussed with Dr. Long and accepted to his service. Sepsis Criteria SIRS Criteria (2 or more): Temp > 100.9 or < 96.8, Heart rate over 90 Sepsis Criteria (SIRS+source): Infect source susp/known Diagnosis Primary Impression: Sepsis due to pneumonia Admitting Information Admitting Physician Requests: it Caryl Barlow DO Jan 27, 2017 09:08
[2017-01-27] MEDS ORDERED: SODIUM CHLOR 0.9% 1000 ML INJ 1,000 ML IV ONE ×2 (09:15)
[2017-01-27] MEDS ORDERED: ACETAMINOPHEN 325 MG TAB PO ONE (09:15)
[2017-01-27 09:47] LABS: AUTOMATED NEUTROPHIL # 6.3 TH/MM3 (1.8-7.7); BASOPHIL % 0.1 % (0.0-2.0); EOSINOPHIL # 0.1 TH/MM3 (0-0.4); EOSINOPHIL % 1.2 % (0.0-4.0); HEMATOCRIT 36.5 % (39.0-51.0); HEMO FLAGS DIFF FINAL; LYMPH % 6.9 % (9.0-44.0); LYMPHOCYTE # 0.6 TH/MM3 (1.0-4.8); MEAN CELL VOLUME 88.8 FL (80.0-100.0); MEAN CORPUSCULAR HEMOGLOBIN 30.5 PG (27.0-34.0); MEAN CORPUSCULAR HGB CONC 34.4 % (32.0-36.0); MONO % 13.3 % (0.0-8.0); NEUT % 78.5 % (16.0-70.0); PLATELET COUNT 123 TH/MM3 (150-450); RED BLOOD COUNT 4.12 MIL/MM3 (4.50-5.90)
--- NOTE | 2017-01-27 09:51 | RADRPT ---
EXAM DATE/TIME: 01/27/2017 09:16 [facility] COMPARISON: CHEST SINGLE AP, January 19, 2017, 11:11. INDICATIONS : Shortness of breath and fever. MEDICAL HISTORY : Carcinoma, thyroid. Hypercholesterolemia. Hypertension. Diabetes, GERD SURGICAL HISTORY : Cholecystectomy. Fusion, lumbar. Cardiac cath, spinal stimulator, gastric sleeve ENCOUNTER: Initial ACUITY: 1 day PAIN SCORE: 0/10 LOCATION: Bilateral chest FINDINGS: Lungs are hypoaerated. Mild generalized interstitial vascular prominence is noted. Increased density is identified in right base suggesting mild air space disease. Heart and mediastinal structures are stable. CONCLUSION: Hypoaerated lungs with minimal airspace disease in the right base. Otherwise stable evaluation compared to prior study 01/19 Jamison Castillo MD on January 27, 2017 at 9:48 Board Certified Radiologist. This report was verified electronically.
[2017-01-27 09:53] LABS: APTT (PATIENT) 28.5 SEC (24.3-30.1); PROTHROMBIN TIME - PATIENT 11.2 SEC (9.8-11.6)
[2017-01-27] MEDS ORDERED: cefTRIAXone INJ 1,000 MG in SODIUM CHLORIDE 0.9% INJ 100 ML IV ONE (10:00)
[2017-01-27] MEDS ORDERED: AZITHROMYCIN 250 MG TAB PO ONE (10:00)
[2017-01-27 10:02] LABS: BICARBONATE 26.2 MEQ/L (21.0-32.0)
[2017-01-27 10:06] LABS: ALCOHOL LESS THAN 3 MG/DL (0-5)
[2017-01-27 10:15] VITALS: BP 137/70; PULSE 103; RESP 16
[2017-01-27 11:31] VITALS: BP 136/72; PULSE 99; RESP 16; TEMP 100.4; O2SAT 94
[2017-01-27] MEDS ORDERED: SODIUM CHLORIDE 0.9% FLUSH 10 ML FLUSH IV FLUSH PRN (11:45)
[2017-01-27] MEDS ORDERED: NALOXONE HCL 0.4 MG/ML AMP IV PUSH PRN (11:45)
--- NOTE | 2017-01-27 12:26 | RADRPT ---
EXAM DATE/TIME: 01/27/2017 11:57 [facility] COMPARISON: CT THORAX W CONTRAST, October 26, 2016, 19:15. CHEST SINGLE AP, January 27, 2017, 9:16. INDICATIONS : Patient has a history of pneumona,found febrile today. RADIATION DOSE: 9.71 CTDIvol (mGy) MEDICAL HISTORY : Cardiovascular disease. Hypertension. Carcinoma, thyroid. Diabetes SURGICAL HISTORY : Cholecystectomy. ENCOUNTER: Initial ACUITY: 1 week PAIN SCALE: 0/10 LOCATION: chest TECHNIQUE: Volumetric scanning of the chest was performed. Using automated exposure control and adjustment of t he mA and/or kV according to patient size, radiation dose was kept as low as reasonably achievable to obtain optimal diagnostic quality images. DICOM format image data is available electronically for r eview and comparison. Follow-up recommendations for detected pulmonary nodules are based at a minimum on nodule size and pa tient risk factors according to Fleischner Society Guidelines. FINDINGS: LUNGS: The area of consolidation parenchymal in the right lung base has markedly improved with small residua l cavitary area laterally. There is patchy ground glass dispersed airspace disease remaining in the r ight lung and slightly progressed and worsened in the left lung due to region superior segment of the lower lobe. PLEURAE: Minimal stable pleural thickening possible fluid posterior right lung base. MEDIASTINUM: The heart and great vessels demonstrate no acute abnormality. There is no mediastinal or hilar lymph adenopathy. AXILLAE: Within normal limits. No lymphadenopathy. MUSCULOSKELETAL: There is a remote healed right anterior second rib fracture MISCELLANEOUS: The visualized upper abdominal organs demonstrate no acute abnormality. CONCLUSION: Persistent groundglass patchy dispersed areas of density in the right lung with improvement of the ar ea consolidation in the right lung there is slight worsening of patchy airspace disease ground glass dispersed in the superior segment of the left lower lobe. Marlon Alegria MD on January 27, 2017 at 12:18 Board Certified Radiologist. This report was verified electronically.
--- NOTE | 2017-01-27 12:57 | HHI.HP ---
HPI Service [facility] Hospitalists Primary Care Physician Emmett Velasco MD, PhD Admission Diagnosis Sepsis secondary to pneumonia Chief Complaint: Fever, generalized weakness, diarrhea Travel History International Travel<30 Days: No Contact w/Intl Traveler <30 Da: No Traveled to Known Affected Are: No History of Present Illness Mr. Zavala is a 51 y/o WM with hypertension, hyperlipidemia, hypothyroidism, diabetes, diabetic nephropathy, rheumatoid arthritis, bipolar disorder, and drug -induced Parkinson's disease. Pt presented to the ED at [facility] on 01/27/17 with complaints of generalized weakness and fever that began this morning. Pt was seen here on 01/19/17 in the ED for generalized weakness and diarrhea and was given Flagyl for suspected C. diff as the pt had recently taken antibiotics for pneumonia but did not take the Flagyl. Pt was seen as an outpt by Dr. Velasco in mid December and pt complained then of diarrhea, fecal urgency (was wearing depends), and abd pain. He was sent for stool studies which were negative for C. diff, salmonella, or Campylobacter. He was sent for a CT Abd/pelvis which was performed on 01/06/17 which noted 2 new focal areas of density in the lateral right lung, hepatic steatosis, thickening of the upper stomach, which could be post-surgical or secondary to lack of full distension, nonobstructing 4mm right renal stone, a few scattered colonic diverticula, mild splenomegaly, and post-operative change in the lumbar spine. He then had a CT Thorax on which noted distinct interval change in worsening in the right lung with diffuse groundglass and solid interstitial small nodules as well as fluid in the major fissure, left lung is relatively clear actual free in bud changes have cleared. He states that the diarrhea has subsided. He had one BM yesterday. His main complaint is that of fever and generalized weakness. Denies any headache, cough, chest pain, sob, n/v, abdominal pain, focal weakness or numbness. Pt was febrile in the ED with Tmax at 103F and hypoxic at 91% on RA so he was given Tylenol and placed on 2 L NC with improvement. Patient denies any recent travel or sick contacts. Patient states that he was quite weak this morning and unable to get out of bed without assistance. Review of Systems Constitutional: COMPLAINS OF: Fever, DENIES: Chills Eyes: DENIES: Vision loss Ears, nose, mouth, throat: DENIES: Hearing loss Respiratory: DENIES: Cough, Shortness of breath Cardiovascular: DENIES: Chest pain, Lower Extremity Edema Gastrointestinal: COMPLAINS OF: Diarrhea Genitourinary: DENIES: Urinary frequency, Dysuria Musculoskeletal: DENIES: Back pain, Neck pain Integumentary: DENIES: Rash Neurologic: COMPLAINS OF: Localized weakness, DENIES: Headache Psychiatric: COMPLAINS OF: Confusion Past Family Social History Past Medical History Generalized anxiety disorder Conn's syndrome Bipolar disorder type I, mixed History of thyroid cancer Chronic kidney disease stage I Obesity Diabetes with neuropathy and nephropathy Essential hypertriglyceridemia Lumbar facet syndrome with chronic pain Esophageal reflux disorder Hypertension Hypothyroidism Metabolic syndrome Migraine headaches Obesity Panic disorder without turgor phobia Postlaminectomy syndrome Rheumatoid arthritis 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 asthmatic bronchitis Past Surgical History Cardiac catheter reportedly negative Bronchoscopy [place] [address] Colindres Cholecystectomy Circumcision due to phimosis Lumbar laminectomy Gastric bypass surgery for morbid obesity Multiple lumbar paravertebral blocks Rhizotomy Spinal neurostimulator placement Vasectomy Total thyroidectomy L4 to S1 fusion Reported Medications Flagyl (Metronidazole) 500 Mg Tab 500 Mg PO TID 7 Days Hm Loperamide HCl (Loperamide HCl) 2 Mg Cap 2 Mg PO Q4H PRN 5 Days Morphine ER (Morphine Sulfate) 15 Mg Tab 15 Mg PO BID Pantoprazole (Pantoprazole Sodium) 40 Mg Tab 40 Mg PO BID NEB Aspirin EC (Aspirin) 81 Mg Tabdr 81 Mg PO DAILY Cytomel (Liothyronine Sodium) 5 Mcg Tablet 10 Mcg PO BID Vitamin D3 (Cholecalciferol) 50,000 Unit Cap 50,000 Units PO 2XWEEK Mobic (Meloxicam) 15 Mg Tab 15 Mg PO DAILY Take with food Seroquel (Quetiapine Fumarate) 25 Mg Tab 125 Mg PO HS Gabapentin 400 Mg Cap 800 Cap PO TID Breo Ellipta Inh (Fluticasone/Vilanterol) 200-25 Mcg/Act Inh 1 Puff INH DAILY Use daily at the same time. Latuda (Lurasidone) 40 Mg Tab 40 Mg PO DAILY Spironolactone 50 Mg Tab 100 Mg PO BID Ventolin Hfa 18 GM Inh (Albuterol Sulfate) 90 Mcg/Act Aer 2 Puff INH Q4H PRN Chewable Calcium (Calcium Carbonate) 500 Mg Chw 500 Mg PO BID Depakote ER (Divalproex Sodium) 500 Mg Khanh 2,500 Mg PO HS Humulin R U-500 (Concentrate) Inj (Insulin Regular (Human) Concentrate Inj) 10, 000 Unit/20 Ml Vial VIA INSULIN PUMP Levothyroxine (Levothyroxine Sodium) 125 Mcg Tab 250 Mcg PO DAILY Metoprolol Tartrate 100 Mg Tab 200 Mg PO BID Imitrex (Sumatriptan Succinate) 100 Mg Tab 100 Mg PO ONCE PRN If a satisfactory response has not been obtained at 2 hours, a second dose may be administered Allergies: Coded Allergies: cholestyramine (Verified Allergy, Mild, NAUSEA, 01/27/17) diltiazem (Verified Allergy, Mild, Edema, 01/27/17) enalaprilat (Verified Allergy, Mild, Cough, 01/27/17) isradipine (Verified Allergy, Mild, Edema, 01/27/17) latex (Verified Allergy, Mild, Rash, 01/27/17) nicardipine (Verified Allergy, Mild, Edema, 01/27/17) nifedipine (Verified Allergy, Mild, Edema, 01/27/17) nimodipine (Verified Allergy, Mild, Edema, 01/27/17) verapamil (Verified Allergy, Mild, Edema, 01/27/17) amlodipine (Verified Allergy, Unknown, enlarged liver, 01/27/17) atorvastatin (Verified Allergy, Unknown, enlarged liver, 01/27/17) pravastatin (Verified Allergy, Unknown, enlarged liver, 01/27/17) simvastatin (Verified Allergy, Unknown, enlarged liver, 01/27/17) *MDRO Multi-Drug Resistant Organism (Verified Adverse Reaction, Unknown, 01/27/17) MRSA (sputum) 10/27/16 Family History Father had bipolar disorder, hypertension, hyperlipidemia, obesity, type 2 diabetes Mother has hypertension There is family history of pancreatic cancer Social History Patient is and lives with his elderly mother He has 2 children He does not smoke nor has he ever Rarely drinks any alcohol No illicit drug use Works at [employer] Physical Exam Vital Signs Vital Signs Date Time Temp Pulse Resp B/P (MAP) Pulse Ox O2 Delivery O2 Flow Rate FiO2 01/27/17 11:31 100.4 99 16 136/72 (93) 94 Nasal Cannula 2.00 01/27/17 10:15 103 16 137/70 (92) 01/27/17 09:20 107 01/27/17 08:55 103.0 113 20 159/74 (102) 91 Physical Exam GENERAL: This is a well-nourished, well-developed patient, in no apparent distress. HEENT: Atraumatic. Normocephalic. No temporal or scalp tenderness. No scleral icterus. Airway patent. NECK: Trachea midline, supple, nontender. CARDIO: Regular. RESP: CTA bilaterally. No wheezes, rales, or rhonchi. ABD: +BS, soft, non-tender, nondistended. EXT: Extremities without clubbing, cyanosis, or edema. NEURO: Awake and alert. Motor and sensory grossly within normal limits. Normal speech. Laboratory Laboratory Tests Test 01/27/17 09:10 White Blood Count 8.0 Red Blood Count 4.12 Hemoglobin 12.6 Hematocrit 36.5 Mean Corpuscular Volume 88.8 Mean Corpuscular Hemoglobin 30.5 Mean Corpuscular Hemoglobin Concent 34.4 Red Cell Distribution Width 16.0 Platelet Count 123 Mean Platelet Volume 8.0 Neutrophils (%) (Auto) 78.5 Lymphocytes (%) (Auto) 6.9 Monocytes (%) (Auto) 13.3 Eosinophils (%) (Auto) 1.2 Basophils (%) (Auto) 0.1 Neutrophils # (Auto) 6.3 Lymphocytes # (Auto) 0.6 Monocytes # (Auto) 1.1 Eosinophils # (Auto) 0.1 Basophils # (Auto) 0.0 CBC Comment DIFF FINAL Differential Comment Prothrombin Time 11.2 Prothromb Time International Ratio 1.0 Activated Partial Thromboplast Time 28.5 Blood Urea Nitrogen 8 Creatinine 0.98 Random Glucose 129 Calcium Level 8.7 Sodium Level 137 Potassium Level 4.0 Chloride Level 102 Carbon Dioxide Level 26.2 Anion Gap 9 Estimat Glomerular Filtration Rate 81 Lactic Acid Level 1.8 Ammonia 38 Troponin I LESS THAN 0.02 Thyroid Stimulating Hormone 3rd Gen 22.700 Valproic Acid (Depakene) Level 92 Ethyl Alcohol Level LESS THAN 3 Date/Time Source Procedure Growth Status 01/27/17 09:20 Blood Peripheral Aerobic Blood Culture Pending Received 01/27/17 09:20 Blood Peripheral Anaerobic Blood Culture Pending Received Result Diagram: 01/27/1710 01/27/1710 Imaging Last Impressions Chest X-Ray 01/27/17 0000 Signed Impressions: Service Date/Time: Friday, January 27, 2017 09:16 - CONCLUSION: Hypoaerated lungs with minimal airspace disease in the right base. Otherwise stable evaluation compared to prior study 01/19 Jamison Castillo MD Septic Shock Reassessment Heart: Other Lungs: Clear Skin: Warm Caprini VTE Risk Assessment Caprini VTE Risk Assessment: Mod/High Risk (score >= 2) Caprini Risk Assessment Model Point Value = 1 Point Value = 2 Point Value = 3 Point Value = 5 Age 41-60 Minor surgery BMI > 25 kg/m2 Swollen legs Varicose veins or History of unexplained or recurrent spontaneous Oral contraceptives or hormone replacement Sepsis (< 1 month) Serious lung disease, including pneumonia (< 1 month) Abnormal pulmonary function Acute myocardial infarction Congestive heart failure (< 1 month) History of inflammatory bowel disease Medical patient at bed rest Age 61-74 Arthroscopic surgery Major open surgery (> 45 min) Laparoscopic surgery (> 45 min) Malignancy Confined to bed (> 72 hours) Immobilizing plaster cast Central venous access Age >= 75 History of VTE Family history of VTE Factor V Leiden Prothrombin [id number] Lupus anticoagulant Anticardiolipin antibodies Elevated serum homocysteine Heparin-induced thrombocytopenia Other congenital or acquired thrombophilia Stroke (< 1 month) Elective arthroplasty Hip, pelvis, or leg fracture Acute spinal cord injury (< 1 month) Prophylaxis Regimen Total Risk Factor Score Risk Level Prophylaxis Regimen 0-1 Low Early ambulation 2 Moderate Order ONE of the following: *Sequential Compression Device (SCD) *Heparin 5000 units SQ BID 3-4 Higher Order ONE of the following medications: *Heparin 5000 units SQ TID *Enoxaparin/Lovenox 40 mg SQ daily (WT < 150 kg, CrCl > 30 mL/min) *Enoxaparin/Lovenox 30 mg SQ daily (WT < 150 kg, CrCl > 10-29 mL/min) *Enoxaparin/Lovenox 30 mg SQ BID (WT < 150 kg, CrCl > 30 mL/min) AND/OR *Sequential Compression Device (SCD) 5 or more Highest Order ONE of the following medications: *Heparin 5000 units SQ TID (Preferred with Epidurals) *Enoxaparin/Lovenox 40 mg SQ daily (WT < 150 kg, CrCl > 30 mL/min) *Enoxaparin/Lovenox 30 mg SQ daily (WT < 150 kg, CrCl > 10-29 mL/min) *Enoxaparin/Lovenox 30 mg SQ BID (WT < 150 kg, CrCl > 30 mL/min) AND *Sequential Compression Device (SCD) Assessment and Plan Problem List: (1) Generalized weakness ICD Codes: R53.1 - Weakness Status: Acute Plan: - Pt is a 51 y/o WM with hypertension, hyperlipidemia, hypothyroidism, diabetes , diabetic nephropathy, rheumatoid arthritis, bipolar disorder, and drug-induced Parkinson's disease. - Pt presented to the ED at [facility] on 01/27/17 with complaints of generalized weakness and fever that began this morning. Pt was seen here on 01/19/17 in the ED for generalized weakness and diarrhea and was given Flagyl for suspected C. diff as the pt had recently taken antibiotics for pneumonia but never took the Flagyl. Prior that that he was seen as an outpt by Dr. Velasco in mid December and pt complained then of diarrhea with fecal urgency (was wearing depends) and abd pain. He was sent for stool studies which were negative for C. diff, salmonella, or Campylobacter. - He was sent for a CT Abd/pelvis (01/06) --> 2 new focal areas of density in the lateral right lung, hepatic steatosis, thickening of the upper stomach, which could be post-surgical or secondary to lack of full distension, nonobstructing 4mm right renal stone, a few scattered colonic diverticula, mild splenomegaly, and post-operative change in the lumbar spine. - He then had a CT Thorax (01/20/17) --> which noted distinct interval change in worsening in the right lung with diffuse groundglass and solid interstitial small nodules as well as fluid in the major fissure, left lung is relatively clear actual free in bud changes have cleared. - He states that the diarrhea has subsided. He had one BM yesterday. - His main complaint is that of fever and generalized weakness and this morning was unable to get out of bed without assistance. - Pt was febrile in the ED with Tmax at 103F and hypoxic at 91% on RA so he was given Tylenol and placed on 2 L NC with improvement. - Repeat CT Thorax - Pt was given Rocephin and Azithromycin in the ED - Of note, the pt has hx of infectious lung mass in 2016, biopsy was negative for malignancy - He also had aspiration pneumonia in 10/2016. Some of his medications may be causing increased sedation making him more at risk for aspiration. Consult psychiatry to review his medications. - Previous sputum culture in 10/2016 with MRSA. 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 - IVF - Duonebs - Supportive care - Consider Pulmonary consultation - DVT prophylaxis with Lovenox (2) Diarrhea ICD Codes: R19.7 - Diarrhea, unspecified Status: Resolved Plan: - Previous stool studies were negative - Pt feels that the diarrhea has improved - Pts last EGD/colonoscopy was 05/16/2016 --> nodular gastritis in the gastric antrum, gastric sleeve, and multiple polyps and hemorrhoids. - If any further diarrhea, check for C. diff (3) Fever ICD Codes: R50.9 - Fever Status: Acute Plan: - See above. (4) Hypothyroid ICD Codes: E03.9 - Hypothyroidism, unspecified Status: Acute Plan: - Pt reported has been taking his home dose of Synthroid and Cytomel - TSH was 22.7 at admission and Free T4 is 5.0 (5) HTN (hypertension) ICD Codes: I10 - Essential (primary) hypertension Status: Chronic Plan: - Cont. home meds (6) Drug-induced Parkinson's disease ICD Codes: G21.19 - Other drug induced secondary parkinsonism Status: Chronic (7) Hyperlipidemia ICD Codes: E78.5 - Hyperlipidemia Status: Chronic Assessment and Plan Patient examined. Assessment and plan formulated with Teresa Saucedo PA-C. I agree with the above. Physician Certification 2 Midnight Certification Type: Admission for Inpatient Services Order for Inpatient Services The services are ordered in accordance with Medicare regulations or non- Medicare payer requirements, as applicable. In the case of services not specified as inpatient-only, they are appropriately provided as inpatient services in accordance with the 2-midnight benchmark. Estimated LOS (days): 3 3 days is the estimated time the patient will need to remain in the hospital, assuming treatment plan goals are met and no additional complications. Post-Hospital Plan: Not yet determined Heike Castro Jan 27, 2017 12:57 Camron Tiwari DO Feb 01, 2017 00:05
[2017-01-27] MEDS ORDERED: SUMAtriptan SUCCINATE 50 MG TAB PO PRN (13:00)
[2017-01-27] MEDS ORDERED: SODIUM CHLOR 0.9% 1000 ML INJ 1,000 ML IV SCH (13:15)
[2017-01-27 13:39] LABS: BLOOD, URINE NEG (NEG); COMMENT (UR) CULT NOT INDICATED; CULTURE IF INDICATED CULT NOT INDICATED; GLUCOSE,URINE NEG (NEG); KETONE, URINE NEG (NEG); NITRITE,URINE NEG (NEG); SQUAMOUS EPITHELIAL CELL URINE <1 /hpf (0-5); URINE COLOR YELLOW (YELLW/STRAW)
[2017-01-27] MEDS: GABAPENTIN 400 MG CAP PO SCH ×2 (14:30→18:10)
[2017-01-27] MEDS: ENOXAPARIN SODIUM 30 MG/0.3 ML SYRINGE SQ SCH (14:30)
[2017-01-27] MEDS: NS + KCL 20 MEQ INJ 1,000 ML IV SCH (14:30)
[2017-01-27 14:36] VITALS: BP 146/75; PULSE 101; RESP 15
[2017-01-27 14:51] VITALS: BP 146/75
[2017-01-27] MEDS ORDERED: RESP: ALBUTEROL 2.5 MG/IPRATROPIUM 0.5 MG NEB (PRN) NEB (15:00)
[2017-01-27] MEDS ORDERED: ALBUTEROL SULFATE 90 MCG/ACT HFA 8 GM INHALER INH PRN (16:00)
[2017-01-27] MEDS ORDERED: ACETAMINOPHEN 325 MG TAB PO PRN (16:00)
[2017-01-27] MEDS: PIPERACIL-TAZO 3.375 GM PREMIX 50 ML IV SCH ×2 (17:19→22:58)
[2017-01-27] MEDS ORDERED: ONDANSETRON HCL 4 MG/2 ML VIAL IVP PRN (18:00)
[2017-01-27] MEDS: INSULIN ASPART SUPPLEMENTAL SCALE SQ SCH ×2 (18:10→22:18)
[2017-01-27 20:00] VITALS: BP 147/71; PULSE 99; RESP 22; TEMP 100.4; O2SAT 94
[2017-01-27] MEDS ORDERED: MAGNESIUM HYDROXIDE SUSP 30 ML CUP PO PRN (21:00)
[2017-01-27] MEDS: SODIUM CHLORIDE 0.9% FLUSH 10 ML FLUSH IV FLUSH SCH (21:00)
[2017-01-27] MEDS ORDERED: DIVALPROEX SODIUM E.R. 250 MG TAB PO SCH (21:00)
[2017-01-27] MEDS ORDERED: TEMAZEPAM 15 MG CAP PO PRN (21:00)
[2017-01-27] MEDS: SPIRONOLACTONE 50 MG TAB PO SCH (22:17)
[2017-01-27] MEDS: PANTOPRAZOLE SOD 40 MG DELAYED RELEASE TAB PO SCH (22:18)
[2017-01-27] MEDS: MORPHINE SULFATE 15 MG CONTROLLED RELEASE TAB PO SCH (22:18)
[2017-01-27] MEDS: QUEtiapine FUMARATE 100 MG TAB PO SCH (22:18)
[2017-01-27] MEDS: METOPROLOL TARTRATE 100 MG TAB PO SCH (22:18)
[2017-01-27] MEDS: LIOTHYRONINE SODIUM 5 MCG TAB PO SCH (22:58)
[2017-01-27] MEDS: DIVALPROEX SODIUM E.R. 500 MG TAB PO SCH (22:58)
[2017-01-28] VITALS (7 sets, daily range): BP systolic 97–134; BP diastolic 52–77; PULSE 75–98; RESP 16–22; TEMP 96.9–100.6; O2SAT 93–99
[2017-01-28] MEDS: PIPERACIL-TAZO 3.375 GM PREMIX 50 ML IV SCH ×4 (04:07→20:37)
[2017-01-28] MEDS: NS + KCL 20 MEQ INJ 1,000 ML IV SCH ×3 (04:07→20:42)
[2017-01-28] MEDS: LEVOTHYROXINE SODIUM 125 MCG TAB PO SCH (06:00)
[2017-01-28] MEDS: INSULIN ASPART SUPPLEMENTAL SCALE SQ SCH ×4 (08:00→20:38)
[2017-01-28] MEDS: LURASIDONE 40 MG TAB PO SCH (08:23)
[2017-01-28] MEDS: GABAPENTIN 400 MG CAP PO SCH ×3 (08:23→17:27)
[2017-01-28] MEDS: PANTOPRAZOLE SOD 40 MG DELAYED RELEASE TAB PO SCH ×2 (08:23→20:38)
[2017-01-28] MEDS: MORPHINE SULFATE 15 MG CONTROLLED RELEASE TAB PO SCH ×2 (08:24→20:38)
[2017-01-28] MEDS: SPIRONOLACTONE 50 MG TAB PO SCH ×2 (08:24→20:38)
[2017-01-28] MEDS: ASPIRIN EC 81 MG TABEC PO SCH (08:24)
[2017-01-28] MEDS: LIOTHYRONINE SODIUM 5 MCG TAB PO SCH ×2 (08:24→20:38)
[2017-01-28] MEDS: METOPROLOL TARTRATE 100 MG TAB PO SCH ×2 (08:26→20:38)
[2017-01-28 08:50] LABS: AUTOMATED NEUTROPHIL # 7.2 TH/MM3 (1.8-7.7); BASOPHIL % 0.2 % (0.0-2.0); EOSINOPHIL # 0.2 TH/MM3 (0-0.4); EOSINOPHIL % 1.9 % (0.0-4.0); HEMATOCRIT 35.9 % (39.0-51.0); HEMO FLAGS DIFF FINAL; LYMPH % 18.4 % (9.0-44.0); LYMPHOCYTE # 1.9 TH/MM3 (1.0-4.8); MEAN CELL VOLUME 90.3 FL (80.0-100.0); MEAN CORPUSCULAR HEMOGLOBIN 30.6 PG (27.0-34.0); MEAN CORPUSCULAR HGB CONC 33.9 % (32.0-36.0); MONO % 11.2 % (0.0-8.0); NEUT % 68.3 % (16.0-70.0); PLATELET COUNT 156 TH/MM3 (150-450); RED BLOOD COUNT 3.98 MIL/MM3 (4.50-5.90); RED CELL DISTRIBUTION WIDTH 16.2 % (11.6-17.2); WHITE BLOOD COUNT 10.5 TH/MM3 (4.0-11.0)
[2017-01-28] MEDS ORDERED: AZITHROMYCIN 250 MG TAB PO SCH (09:00)
[2017-01-28] MEDS: SODIUM CHLORIDE 0.9% FLUSH 10 ML FLUSH IV FLUSH SCH ×2 (09:00→20:39)
[2017-01-28] MEDS: FLUTICASONE 200 MCG/VILANTEROL 25 MCG INHALER INH SCH (09:00)
--- NOTE | 2017-01-28 09:06 | RADRPT ---
EXAM DATE/TIME: 01/28/2017 08:56 [facility] COMPARISON: CT THORAX W/O CONTRAST, January 27, 2017, 11:57. CHEST PA & LAT, October 15, 2016, 14:44. INDICATIONS : Short of breath for three weeks. MEDICAL HISTORY : Cardiovascular disease. Hypertension. Gastroesophageal reflux SURGICAL HISTORY : Cholecystectomy. Fusion, lumbar.Gastic sleeve. ENCOUNTER: Subsequent ACUITY: 2 days PAIN SCORE: 0/10 LOCATION: Bilateral chest FINDINGS: Left lung remains clear. Coarse parenchymal changes persist right lung with minimal blunting minimal blunting right ultrasonic sulcus stable in the interval. interval. The heart and pulmonary vasculari ty are normal. CONCLUSION: Stable chest.. Glenn Morgan MD FACR on January 28, 2017 at 9:02 Board Certified Radiologist. This report was verified electronically.
[2017-01-28 09:18] LABS: BICARBONATE 26.1 MEQ/L (21.0-32.0); POTASSIUM 4.2 MEQ/L (3.5-5.1)
[2017-01-28] MEDS ORDERED: cefTRIAXone INJ 1,000 MG in SODIUM CHLORIDE 0.9% INJ 100 ML IV SCH (10:00)
[2017-01-28] MEDS: ENOXAPARIN SODIUM 30 MG/0.3 ML SYRINGE SQ SCH (12:37)
--- NOTE | 2017-01-28 16:28 | HHI.PR ---
Subjective Remarks Patient reports he fells about the same as yesterday. Continues to have productive cough Objective Vitals Vital Signs Date Time Temp Pulse Resp B/P (MAP) Pulse Ox O2 Delivery O2 Flow Rate FiO2 01/28/17 16:00 97.7 79 17 103/68 (80) 99 01/28/17 12:00 96.9 76 17 107/60 (76) 95 01/28/17 09:38 93 01/28/17 08:00 96.9 75 17 97/52 (67) 93 01/28/17 04:00 97.9 76 22 108/69 (82) 94 01/28/17 01:17 21 01/28/17 00:00 100.6 98 22 134/76 (95) 94 01/27/17 20:00 100.4 99 22 147/71 (96) 94 Result Diagram: 01/28/17 0652 01/28/17 0652 Other Results Laboratory Tests Test 01/27/17 09:10 01/27/17 13:05 01/28/17 06:52 White Blood Count 8.0 TH/MM3 10.5 TH/MM3 Red Blood Count 4.12 MIL/MM3 3.98 MIL/MM3 Hemoglobin 12.6 GM/DL 12.2 GM/DL Hematocrit 36.5 % 35.9 % Mean Corpuscular Volume 88.8 FL 90.3 FL Mean Corpuscular Hemoglobin 30.5 PG 30.6 PG Mean Corpuscular Hemoglobin Concent 34.4 % 33.9 % Red Cell Distribution Width 16.0 % 16.2 % Platelet Count 123 TH/MM3 156 TH/MM3 Mean Platelet Volume 8.0 FL 8.2 FL Neutrophils (%) (Auto) 78.5 % 68.3 % Lymphocytes (%) (Auto) 6.9 % 18.4 % Monocytes (%) (Auto) 13.3 % 11.2 % Eosinophils (%) (Auto) 1.2 % 1.9 % Basophils (%) (Auto) 0.1 % 0.2 % Neutrophils # (Auto) 6.3 TH/MM3 7.2 TH/MM3 Lymphocytes # (Auto) 0.6 TH/MM3 1.9 TH/MM3 Monocytes # (Auto) 1.1 TH/MM3 1.2 TH/MM3 Eosinophils # (Auto) 0.1 TH/MM3 0.2 TH/MM3 Basophils # (Auto) 0.0 TH/MM3 0.0 TH/MM3 CBC Comment DIFF FINAL DIFF FINAL Differential Comment Prothrombin Time 11.2 SEC Prothromb Time International Ratio 1.0 RATIO Activated Partial Thromboplast Time 28.5 SEC Blood Urea Nitrogen 8 MG/DL 9 MG/DL Creatinine 0.98 MG/DL 0.97 MG/DL Random Glucose 129 MG/DL 122 MG/DL Calcium Level 8.7 MG/DL 8.7 MG/DL Sodium Level 137 MEQ/L 140 MEQ/L Potassium Level 4.0 MEQ/L 4.2 MEQ/L Chloride Level 102 MEQ/L 104 MEQ/L Carbon Dioxide Level 26.2 MEQ/L 26.1 MEQ/L Anion Gap 9 MEQ/L 10 MEQ/L Estimat Glomerular Filtration Rate 81 ML/MIN 82 ML/MIN Lactic Acid Level 1.8 mmol/L Ammonia 38 MCMOL/L Troponin I LESS THAN 0.02 NG/ML Thyroxine (T4) 5.0 MCG/DL Thyroid Stimulating Hormone 3rd Gen 22.700 uIU/ML Valproic Acid (Depakene) Level 92 MCG/ML Ethyl Alcohol Level LESS THAN 3 MG/DL Urine Color YELLOW Urine Turbidity CLEAR Urine pH 7.0 Urine Specific Swink 1.013 Urine Protein NEG mg/dL Urine Glucose (UA) NEG mg/dL Urine Ketones NEG mg/dL Urine Occult Blood NEG Urine Nitrite NEG Urine Bilirubin NEG Urine Urobilinogen LESS THAN 2.0 MG/DL Urine Leukocyte Esterase NEG Urine RBC LESS THAN 1 /hpf Urine WBC 1 /hpf Urine Squamous Epithelial Cells <1 /hpf Microscopic Urinalysis Comment CULT NOT INDICATED Urine Opiates Screen POS Urine Barbiturates Screen NEG Urine Amphetamines Screen NEG Urine Benzodiazepines Screen NEG Urine Cocaine Screen NEG Urine Cannabinoids Screen NEG Imaging Last Impressions Chest X-Ray 01/27/17 0000 Signed Impressions: Service Date/Time: Friday, January 27, 2017 09:16 - CONCLUSION: Hypoaerated lungs with minimal airspace disease in the right base. Otherwise stable evaluation compared to prior study 01/19 Jamison Castillo MD Objective Remarks GENERAL: This is a well-nourished, well-developed patient, in no apparent distress. CARDIO: Regular. RESP: CTA bilaterally. No wheezes, rales, or rhonchi. ABD: +BS, soft, non-tender, nondistended. EXT: Extremities without clubbing, cyanosis, or edema. NEURO: Awake and alert. Motor and sensory grossly within normal limits. Normal speech. A/P Problem List: (1) Generalized weakness ICD Codes: R53.1 - Weakness Status: Acute Plan: - Pt is a 51 y/o WM with hypertension, hyperlipidemia, hypothyroidism, diabetes , diabetic nephropathy, rheumatoid arthritis, bipolar disorder, and drug-induced Parkinson's disease. - Pt presented to the ED at [facility] on 01/27/17 with complaints of generalized weakness and fever that began this morning. Pt was seen here on 01/19/17 in the ED for generalized weakness and diarrhea and was given Flagyl for suspected C. diff as the pt had recently taken antibiotics for pneumonia but never took the Flagyl. Prior that that he was seen as an outpt by Dr. Velasco in mid December and pt complained then of diarrhea with fecal urgency (was wearing depends) and abd pain. He was sent for stool studies which were negative for C. diff, salmonella, or Campylobacter. - He was sent for a CT Abd/pelvis (01/06) --> 2 new focal areas of density in the lateral right lung, hepatic steatosis, thickening of the upper stomach, which could be post-surgical or secondary to lack of full distension, nonobstructing 4mm right renal stone, a few scattered colonic diverticula, mild splenomegaly, and post-operative change in the lumbar spine. - He then had a CT Thorax (01/20/17) --> which noted distinct interval change in worsening in the right lung with diffuse groundglass and solid interstitial small nodules as well as fluid in the major fissure, left lung is relatively clear actual free in bud changes have cleared. - He states that the diarrhea has subsided. He had one BM yesterday. - His main complaint is that of fever and generalized weakness and this morning was unable to get out of bed without assistance. - Pt was febrile in the ED with Tmax at 103F and hypoxic at 91% on RA so he was given Tylenol and placed on 2 L NC with improvement. - Repeat CT Thorax 01/27/17 reviewed and reveals: Persistent groundglass patchy dispersed areas of density in the right lung with improvement of the area consolidation in the right lung there is slightly worsening of patchy airspace disease ground glass dispersed in the superior segment of the left lower lobe - Pt was given Rocephin and Azithromycin in the ED - Of note, the pt has hx of infectious lung mass in 2015, biopsy was negative for malignancy - He also had aspiration pneumonia in 10/2016. Some of his medications may be causing increased sedation making him more at risk for aspiration. Consult psychiatry to review his medications. - Previous sputum culture in 10/2016 with MRSA. 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 - IVF - Duonebs - Supportive care - Pulmonary consultation placed - DVT prophylaxis with Lovenox (2) Diarrhea ICD Codes: R19.7 - Diarrhea, unspecified Status: Resolved Plan: - Previous stool studies were negative - Pt feels that the diarrhea has improved - Pts last EGD/colonoscopy was 05/16/2016 --> nodular gastritis in the gastric antrum, gastric sleeve, and multiple polyps and hemorrhoids. - If any further diarrhea, check for C. diff (3) Fever ICD Codes: R50.9 - Fever Status: Acute Plan: - See above. (4) Hypothyroid ICD Codes: E03.9 - Hypothyroidism, unspecified Status: Acute Plan: - Pt reported has been taking his home dose of Synthroid and Cytomel - TSH was 22.7 at admission and Free T4 is 5.0 (5) HTN (hypertension) ICD Codes: I10 - Essential (primary) hypertension Status: Chronic Plan: - Cont. home meds (6) Drug-induced Parkinson's disease ICD Codes: G21.19 - Other drug induced secondary parkinsonism Status: Chronic (7) Hyperlipidemia ICD Codes: E78.5 - Hyperlipidemia Status: Chronic Assessment and Plan Patient examined. Assessment and plan formulated with Teresa Saucedo PA-C. I agree with the above. Teresa Saucedo Jan 28, 2017 16:28 Camron Tiwari DO Feb 01, 2017 00:03
--- NOTE | 2017-01-28 17:45 | MB ---
cc: JOSR TIWARI HARISH M.D. DATE OF CONSULTATION 01/28/2017 HISTORY This 51-year-old white male with multiple medical issues, i.e., hypertension, hyperlipidemia, hypothyroidism, diabetes, diabetic nephropathy, rheumatoid arthritis and Parkinson's disease was admitted through the emergency room with chief complaints of "fever, generalized weakness, diarrhea." He carries a diagnosis of bipolar affective disorder and is currently being followed by Dr. Cline at [facility]. Psychiatric consultation is requested by Dr. Tiwari for evaluation and assistance in the management of the same. LABORATORY FINDINGS CBC with differential unremarkable. CMP unremarkable. Ammonia level elevated 38. Troponin level less than 0.02. TSH elevated at 22. T4 normal at 5. PT/INR unremarkable. Routine urinalysis unremarkable. IMAGING Chest x-ray hyperaerated lungs with minimal air space disease in the right base. CT scan of the chest showed persistent ground glass patchy dispersed areas with density in the right lung with improvement of the area of consolidation in the right lung. There is slight worsening of patchy air space disease, ground-glass dispersed in the superior segment of the left lower lobe. r MEDICATIONS His current medications are: 1. Ecotrin 81 mg daily. 2. Latuda 40 mg daily. 3. Synthroid 250 mcg daily. 4. Depakote ER 2500 milligrams q.h.s. 5. Cytomel 10 mcg b.i.d. 6. Metoprolol 200 milligrams twice a day. 7. Lopressor. 8. Morphine sulfate 15 mg b.i.d. 9. Protonix 40 mg b.i.d. 10. Seroquel 100 mg q.h.s. 11. Aldactone 100 mg b.i.d. 12. Albuterol inhaler. 13. Neurontin 800 mg t.i.d. As the time of this evaluation Mr. Zavala was pleasant and cooperative. When asked about his understanding of the reason for this hospitalization he responded "this is the second time I have had this. About three weeks ago I certainly could not walk. The brought me to the hospital. I got better and this happened again. They say that I have some patches on my lung. I have been worried about it". He went on and on to talk about his multiple medical issues. He stated that he carries a diagnosis of "bipolar" and had first manic episode in 1989 which he described as follows "I was spending money like crazy. I could not sit still. I talked and talked. I had a lot of energy and did not want to sleep." He was treated by a psychiatrist whose name he could not recall. Since then he has had several "manic and depressive episodes." When asked to describe a typical manic episode he described it as follows "that is when I feel on top of the world. My mind is going 100 miles per hour. I talk too much. I have a ton of energy. I spend like crazy." He denied experiencing any delusions or auditory hallucinations during these manic episodes. They typically last a week to two weeks. His depressive episodes last a lot longer which he described as follows "that is when I feel sad. I do not feel like doing anything. I stay by myself. I do not give a damn." When asked as to how he has been feeling over the past few months he responded "normal keel". He went on to say that he is currently on Depakote, Latuda and Seroquel combination is working very well. Further exploration revealed that he has been experiencing some psychosocial stressors in addition to the multiple medical problems, i.e. divorce from his about 3 years ago. From what he described they had been for 20 years and the decided to divorce him because of his "bipolar." When questioned about compliance with the medication / outpatient follow up he stated that he has always been a very compliant patient. In addition he has also experienced financial difficulties as he was unemployed. 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 PAST PSYCHIATRIC HISTORY As mentioned his first psychiatric intervention was in 1989. Since then he has been under psychiatric care. One-time he was under care of Dr. Parker who had him on lithium which according to him he did not tolerate and discontinued after 3 months. He was admitted to the [facility] in 2003 under my care. I do not have those records in the electronic medical record system at this time. As mentioned he is currently being followed by Dr. Cline and is on Depakote 2500 mg daily, Seroquel 100 mg q.h.s. and Latuda 40 mg daily. PAST MEDICAL HISTORY As mentioned he has history of: 1. Hypertension. 2. Hyperlipidemia. 3. Hypothyroidism. 4. Diabetes. 5. Diabetic nephropathy. 6. Rheumatoid arthritis. 7. History of thyroid cancer. 8. Chronic kidney disease stage I. 9. Chronic back pain. 10. Gastroesophageal reflux disorder. 11. Metabolic syndrome. 12. Migraine headache. 13. Obesity. 14. Drug-induced Parkinson syndrome. 15. Questionable asthmatic bronchitis. PAST SURGICAL HISTORY 1. Cardiac catheterization. 2. Bronchoscopy in 2016. 3. Cholecystectomy. 4. Circumcision due to phimosis. 5. Lumbar laminectomy. 6. Gastric bypass surgery for morbid obesity. 7. Rhizotomy. 8. Spinal neuro stimulator placement. 9. Vasectomy. 10. Total thyroidectomy. 11. L4-S1 fusion. ALLERGIES HE IS ALLERGIC TO CHOLESTYRAMINE, DILTIAZEM, ENALAPRIL, LATEX, NICARDIPINE, VERAPAMIL, AMLODIPINE, ATORVASTATIN, SIMVASTATIN. FAMILY HISTORY His parents when he was ___ years old. He is currently living with his mother. He has two sisters one of whom suffers from unspecified psychiatric illness. He has a daughter who suffers from "bipolar." He denied any family history of alcohol or drug abuse. PERSONAL AND SOCIAL HISTORY He [place] his father was in the [employer] service. After finishing high school he obtained a bachelors degree in organizational management. 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 He was once for 20 years and that marriage ended in divorce 3 years ago. He has a son and a daughter. He has history of alcohol abuse averaging "three drinks at night." However, currently he drinks " once in awhile as a treat." He denied any history of drug abuse. He was once involved in a fight resulting in incarceration. Other than that he denied any history of involvement with the law. CLINICAL OBSERVATION AND MENTAL STATUS EXAMINATION At the time of this evaluation he presented as a casually dressed, reasonably well-groomed overweight white male who looked his stated age. He was overall pleasant and cooperative this interviewer and volunteered information spontaneously. He seemed somewhat overly focused on various somatic issues. No overt anger or hostility was noticed. No bizarre behavior or mannerisms were noticed. His speech was coherent and appropriate. His affect was appropriate, pleasant. Subjectively described his mood as "considering everything I am okay." There was no evidence of any thought disorder. No wing delusions, auditory or visual hallucinations were noticed or reported. He denied active suicidal or homicidal ideations or intent at this time. He indicated that about 3 years ago he had considered shooting himself but did not go through with it. He denied access to firearms at this time. When asked as to how he felt about this type of behavior he responded "I feel kind of embarrassed. I feel stupid." He denied any homicidal ideations or intent at this time. Cognitive functions he was alert, oriented to place, person and situation. Memory, immediate he could do 5 digits forward and 4 digits backward. Recent he could recall two out of three objects after 10 minutes. Remote he could recall presidents up to President Manuel. His attention and concentration was impaired. He could not do serial 7s beyond 86. His judgment and insight were felt to be good. DIAGNOSTIC IMPRESSION 1. Bipolar affective disorder, most recent episode depression. 2. History of alcohol abuse under partial remission. 3. Hypertension. 4. Hyperlipidemia. 5. Hypothyroidism. 6. Diabetes. 7. Diabetic neuropathy. 8. Rheumatoid arthritis. 9. Drug-induced Parkinson's disease. 10. Chronic back pain. FORMULATION AND RECOMMENDATIONS Based on this evaluation and the background information available to me at this time, Mr. Zavala suffers from bipolar affective disorder. His condition is well controlled on the current drug regimen and as such he needs to continue on it. I will check his Depakote levels. His depression is compounded by certain psychosocial stressors i.e. multiple medical issues, divorce. He is receiving individual psychotherapy through [facility] and was encouraged to continue with it. I reviewed the patient's condition, my diagnosis and recommendations with Dr. Tiwari. He is suspecting aspiration pneumonia due to oversedation and as such is considering reducing the dose of Gabapentin I certainly support. Also possibility of obstructive sleep apnea needs to be considered. Upon discharge he certainly needs to continue psychiatric followup with Dr. Cline. Thank you Dr. Tiwari for allowing me to participate in the care of Mr. Zavala. I will follow him with you during this admission. MD JACQUIE Zhu/LETHA /3:55 PM /5:02 PM
[2017-01-28] MEDS: QUEtiapine FUMARATE 100 MG TAB PO SCH (20:38)
[2017-01-28] MEDS: DIVALPROEX SODIUM E.R. 500 MG TAB PO SCH (20:38)
[2017-01-29] VITALS (7 sets, daily range): BP systolic 128–166; BP diastolic 67–90; PULSE 68–74; RESP 12–20; TEMP 96.5–98.7; O2SAT 92–99
--- NOTE | 2017-01-29 00:12 | EKG ---
Date Performed: 01/27/2017 Time Performed: 09:10:00 PTAGE: 51 years EKG: SINUS TACHYCARDIA POSSIBLE INFERIOR MYOCARDIAL INFARCTION ABNORMAL RHYTHM ECG PREVIOUS TRACING : 01/19/2017 10.52 Compared to prior tracing no significant change DOCTOR: John El Interpretating Date/Time 01/29/2017 00:10:03
--- NOTE | 2017-01-29 00:17 | MB ---
cc: YESY HAYWARD M.D. DATE OF CONSULTATION: 01/28/2017 REASON FOR CONSULTATION: Abnormal chest x-ray. HISTORY OF PRESENT ILLNESS Mr. Zavala is a 51-year-old male with history of diabetes mellitus, hypertension, hyperlipidemia, hypothyroidism, rheumatoid arthritis, bipolar disorder and drug-induced Parkinson's disease per his admission record. The patient was admitted for generalized weakness. He has previously been Hospice in early December. He had sepsis at the time and pneumonia. The patient tells me he had a recent CT scan prior to his hospitalization with "patches on the lungs." The patient's CT scan of the chest was done upon admission at this time, is with improving infiltrates of the right lung, somewhat worse on the left, although mildly so. The patient denies shortness of breath, fever, chills, cough with expectoration. No chest pain. PAST MEDICAL HISTORY: 1. Bipolar disorder. 2. Generalized anxiety. 3. Crohn's syndrome. 4. History of thyroid cancer. 5. Chronic kidney disease. 6. Diabetes mellitus. 7. Hypertension. 8. Hyperlipidemia. 9. Hypothyroidism. 10. Rheumatoid arthritis. 11. Migraine headaches. 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 13. Parkinson's disease. Apparently drug induced. 14. Previous bronchoscopy in 2016. 15. Gastric bypass surgery for morbid obesity. 16. Previous vasectomy. 17. Spinal neuro stimulator. 18. Total thyroidectomy for cancer, as mentioned above. 19. Lumbar fusion. MEDICATIONS AT HOME: 1. Flagyl which he apparently was not taking. 2. Loperamide. 3. Morphine. 4. Aspirin 5. Cytomel. 6. Vitamin tablet. 7. Seroquel. 8. Gabapentin. 9. Breo Ellipta 10. Aldactone. 11. Latuda. 12. Ventolin. 13. Depakote. 14. Insulin. 15. Levothyroxine. 16. Metoprolol 17. Imitrex. ALLERGIES: SIMVASTATIN ALL STATINS AMLODIPINE VERAPAMIL NIMODIPINE NIFEDIPINE NICARDIPINE. LATEX ISRADIPINE DILTIAZEM CHOLESTYRAMINE. ENALAPRIL MDRO FAMILY HISTORY Noncontributory. SOCIAL HISTORY: The patient is , lives with elderly mother, has two children. He does not smoke and does not drink. He does not use drugs. REVIEW OF SYSTEMS 12-point review of systems as per HPI and past history otherwise negative. PHYSICAL EXAMINATION: The patient is alert, appears in no acute distress. VITAL SIGNS: Temperature 100.4, pulse 90, respiratory rate 20, blood pressure 130/70. HEENT: Unremarkable. Eyes without icterus. NECK: Without adenopathy, thyroid enlargement, central trachea. CHEST: Scattered rhonchi bilaterally. CARDIAC: PMI not appreciated. S1-S2 audible, no murmur, no rub. ABDOMEN: Obese, lax, bowel sounds audible. EXTREMITIES: No clubbing, cyanosis or edema. SKIN: Normal. No lymphadenopathy. LABORATORY DATA White count is 8000, hemoglobin 12.6, hematocrit 36.5, sodium 137, potassium 4.0, BUN 8, creatinine 0.9. CT scan of the chest as described above, bilateral lung infiltrates, there are areas of density in the right lung which seems improving, very mild worsening on the left. IMPRESSION: 1. Pneumonia. No specific findings as mentioned above. 2. Generalized weakness, evaluation in progress. 3. Hypothyroidism on replacement therapy. 4. Drug induced Parkinson's disease. PLAN: At this point, the patient is stable from a pulmonary standpoint. His generalized weakness needs to be addressed. Once stabilized, would consider proceeding with bronchoscopic examination and obtaining approximately cultures and other studies. He had had bronchoscopy in 2016, will review these records once available. I do thank you for asking me to partake in Mr. Zavala's care. Yesy Hayward MD WWW/JARROD /7:30 PM /11:46 PM
[2017-01-29] MEDS: PIPERACIL-TAZO 3.375 GM PREMIX 50 ML IV SCH ×4 (02:41→22:16)
[2017-01-29] MEDS: LEVOTHYROXINE SODIUM 125 MCG TAB PO SCH (05:03)
[2017-01-29] MEDS: INSULIN ASPART SUPPLEMENTAL SCALE SQ SCH ×4 (08:00→21:00)
[2017-01-29] MEDS: FLUTICASONE 200 MCG/VILANTEROL 25 MCG INHALER INH SCH (10:09)
[2017-01-29] MEDS: SODIUM CHLORIDE 0.9% FLUSH 10 ML FLUSH IV FLUSH SCH ×2 (10:10→21:00)
[2017-01-29] MEDS: SPIRONOLACTONE 50 MG TAB PO SCH ×2 (10:11→22:16)
[2017-01-29] MEDS: GABAPENTIN 400 MG CAP PO SCH ×3 (10:12→17:59)
[2017-01-29] MEDS: MORPHINE SULFATE 15 MG CONTROLLED RELEASE TAB PO SCH ×2 (10:13→22:16)
[2017-01-29] MEDS: PANTOPRAZOLE SOD 40 MG DELAYED RELEASE TAB PO SCH ×2 (10:14→22:15)
[2017-01-29] MEDS: METOPROLOL TARTRATE 100 MG TAB PO SCH ×2 (10:14→22:15)
[2017-01-29] MEDS: LIOTHYRONINE SODIUM 5 MCG TAB PO SCH ×2 (10:15→22:16)
[2017-01-29] MEDS: ASPIRIN EC 81 MG TABEC PO SCH (10:15)
[2017-01-29] MEDS: LURASIDONE 40 MG TAB PO SCH (10:18)
[2017-01-29] MEDS: NS + KCL 20 MEQ INJ 1,000 ML IV SCH ×2 (10:19→22:35)
[2017-01-29] MEDS: ENOXAPARIN SODIUM 30 MG/0.3 ML SYRINGE SQ SCH (13:04)
--- NOTE | 2017-01-29 14:12 | HHI.PR ---
Subjective Remarks Patient reports recurrent diarrhea which has been chronic for about a month Patient reports overall he feels better today. Denies SOB Objective Vitals Vital Signs Date Time Temp Pulse Resp B/P (MAP) Pulse Ox O2 Delivery O2 Flow Rate FiO2 01/29/17 12:04 98.7 73 12 147/83 (104) 95 01/29/17 07:15 97.7 73 20 144/86 (105) 93 01/29/17 04:26 97.7 74 16 128/67 (87) 92 01/29/17 00:00 96.5 73 16 129/70 (89) 92 01/28/17 20:00 96.9 87 16 125/77 (93) 96 01/28/17 16:00 97.7 79 17 103/68 (80) 99 Result Diagram: 01/28/17 0652 01/28/17 0652 Other Results Laboratory Tests Test 01/27/17 09:10 01/27/17 13:05 01/28/17 06:52 01/29/17 06:38 White Blood Count 8.0 TH/MM3 10.5 TH/MM3 Red Blood Count 4.12 MIL/MM3 3.98 MIL/MM3 Hemoglobin 12.6 GM/DL 12.2 GM/DL Hematocrit 36.5 % 35.9 % Mean Corpuscular Volume 88.8 FL 90.3 FL Mean Corpuscular Hemoglobin 30.5 PG 30.6 PG Mean Corpuscular Hemoglobin Concent 34.4 % 33.9 % Red Cell Distribution Width 16.0 % 16.2 % Platelet Count 123 TH/MM3 156 TH/MM3 Mean Platelet Volume 8.0 FL 8.2 FL Neutrophils (%) (Auto) 78.5 % 68.3 % Lymphocytes (%) (Auto) 6.9 % 18.4 % Monocytes (%) (Auto) 13.3 % 11.2 % Eosinophils (%) (Auto) 1.2 % 1.9 % Basophils (%) (Auto) 0.1 % 0.2 % Neutrophils # (Auto) 6.3 TH/MM3 7.2 TH/MM3 Lymphocytes # (Auto) 0.6 TH/MM3 1.9 TH/MM3 Monocytes # (Auto) 1.1 TH/MM3 1.2 TH/MM3 Eosinophils # (Auto) 0.1 TH/MM3 0.2 TH/MM3 Basophils # (Auto) 0.0 TH/MM3 0.0 TH/MM3 CBC Comment DIFF FINAL DIFF FINAL Differential Comment Prothrombin Time 11.2 SEC Prothromb Time International Ratio 1.0 RATIO Activated Partial Thromboplast Time 28.5 SEC Blood Urea Nitrogen 8 MG/DL 9 MG/DL Creatinine 0.98 MG/DL 0.97 MG/DL Random Glucose 129 MG/DL 122 MG/DL Calcium Level 8.7 MG/DL 8.7 MG/DL Sodium Level 137 MEQ/L 140 MEQ/L Potassium Level 4.0 MEQ/L 4.2 MEQ/L Chloride Level 102 MEQ/L 104 MEQ/L Carbon Dioxide Level 26.2 MEQ/L 26.1 MEQ/L Anion Gap 9 MEQ/L 10 MEQ/L Estimat Glomerular Filtration Rate 81 ML/MIN 82 ML/MIN Lactic Acid Level 1.8 mmol/L Ammonia 38 MCMOL/L Troponin I LESS THAN 0.02 NG/ML Thyroxine (T4) 5.0 MCG/DL Thyroid Stimulating Hormone 3rd Gen 22.700 uIU/ML Valproic Acid (Depakene) Level 92 MCG/ML 98 MCG/ML Ethyl Alcohol Level LESS THAN 3 MG/DL Urine Color YELLOW Urine Turbidity CLEAR Urine pH 7.0 Urine Specific [place] 1.013 Urine Protein NEG mg/dL Urine Glucose (UA) NEG mg/dL Urine Ketones NEG mg/dL Urine Occult Blood NEG Urine Nitrite NEG Urine Bilirubin NEG Urine Urobilinogen LESS THAN 2.0 MG/DL Urine Leukocyte Esterase NEG Urine RBC LESS THAN 1 /hpf Urine WBC 1 /hpf Urine Squamous Epithelial Cells <1 /hpf Microscopic Urinalysis Comment CULT NOT INDICATED Urine Opiates Screen POS Urine Barbiturates Screen NEG Urine Amphetamines Screen NEG Urine Benzodiazepines Screen NEG Urine Cocaine Screen NEG Urine Cannabinoids Screen NEG Test 01/29/17 13:20 Imaging Last Impressions Chest X-Ray 01/27/17 0000 Signed Impressions: Service Date/Time: Friday, January 27, 2017 09:16 - CONCLUSION: Hypoaerated lungs with minimal airspace disease in the right base. Otherwise stable evaluation compared to prior study 01/19 Jamison Castillo MD Objective Remarks GENERAL: This is a well-nourished, well-developed patient, in no apparent distress. CARDIO: Regular. RESP: CTA bilaterally. No wheezes, rales, or rhonchi. ABD: +BS, soft, non-tender, nondistended. EXT: Extremities without clubbing, cyanosis, or edema. NEURO: Awake and alert. Motor and sensory grossly within normal limits. Normal speech. A/P Problem List: (1) Generalized weakness ICD Codes: R53.1 - Weakness Status: Acute Plan: - Pt is a 51 y/o WM with hypertension, hyperlipidemia, hypothyroidism, diabetes , diabetic nephropathy, rheumatoid arthritis, bipolar disorder, and drug-induced Parkinson's disease. - Pt presented to the ED at [facility] on 01/27/17 with complaints of generalized weakness and fever that began this morning. Pt was seen here on 01/19/17 in the ED for generalized weakness and diarrhea and was given Flagyl for suspected C. diff as the pt had recently taken antibiotics for pneumonia but never took the Flagyl. Prior that that he was seen as an outpt by Dr. Velasco in mid December and pt complained then of diarrhea with fecal urgency (was wearing depends) and abd pain. He was sent for stool studies which were negative for C. diff, salmonella, or Campylobacter. - He was sent for a CT Abd/pelvis (01/06) --> 2 new focal areas of density in the lateral right lung, hepatic steatosis, thickening of the upper stomach, which could be post-surgical or secondary to lack of full distension, nonobstructing 4mm right renal stone, a few scattered colonic diverticula, mild splenomegaly, and post-operative change in the lumbar spine. - He then had a CT Thorax (01/20/17) --> which noted distinct interval change in worsening in the right lung with diffuse groundglass and solid interstitial small nodules as well as fluid in the major fissure, left lung is relatively clear actual free in bud changes have cleared. - He states that the diarrhea has subsided. He had one BM yesterday. - His main complaint is that of fever and generalized weakness and this morning was unable to get out of bed without assistance. - Pt was febrile in the ED with Tmax at 103F and hypoxic at 91% on RA so he was given Tylenol and placed on 2 L NC with improvement. - Repeat CT Thorax 01/27/17 reviewed and reveals: Persistent groundglass patchy dispersed areas of density in the right lung with improvement of the area consolidation in the right lung there is slightly worsening of patchy airspace disease ground glass dispersed in the superior segment of the left lower lobe - Pt was given Rocephin and Azithromycin in the ED - Of note, the pt has hx of infectious lung mass in 2016, biopsy was negative for malignancy - He also had aspiration pneumonia in 10/2016. Some of his medications may be causing increased sedation making him more at risk for aspiration. Consult psychiatry to review his medications. Evaluated by Dr. Ramírez recommends continuing current regiment of psych meds - Previous sputum culture in 10/2016 with MRSA. 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 - IVF - Duonebs - Supportive care - Pulmonary consultation, evaluated by Dr. Hayward . per Dr. Hayward once stabilized, would consider proceeding with bronchoscopic examination and obtaining approximately cultures and other studies. 01/[address] Tiwari with Dr. Hayward plan for bronchoscopy tomorrow - DVT prophylaxis with Lovenox (2) Diarrhea ICD Codes: R19.7 - Diarrhea, unspecified Status: Resolved Plan: - Previous stool studies were negative - Pt feels that the diarrhea has improved - Pts last EGD/colonoscopy was 05/16/2016 --> nodular gastritis in the gastric antrum, gastric sleeve, and multiple polyps and hemorrhoids. - further diarrhea today will check stools studies and C. diff (3) Fever ICD Codes: R50.9 - Fever Status: Acute Plan: - See above. (4) Hypothyroid ICD Codes: E03.9 - Hypothyroidism, unspecified Status: Acute Plan: - Pt reported has been taking his home dose of Synthroid and Cytomel - TSH was 22.7 at admission and Free T4 is 5.0 (5) HTN (hypertension) ICD Codes: I10 - Essential (primary) hypertension Status: Chronic Plan: - Cont. home meds (6) Drug-induced Parkinson's disease ICD Codes: G21.19 - Other drug induced secondary parkinsonism Status: Chronic (7) Hyperlipidemia ICD Codes: E78.5 - Hyperlipidemia Status: Chronic Assessment and Plan Patient examined. Assessment and plan formulated with Teresa Saucedo PA-C. I agree with the above. Teresa Saucedo Jan 29, 2017 14:12 Camron Tiwari DO Feb 01, 2017 00:04
--- NOTE | 2017-01-29 15:25 | HHI.PR ---
Subjective Remarks alert no SOB AT REST Objective Vital Signs Date Time Temp Pulse Resp B/P (MAP) Pulse Ox O2 Delivery O2 Flow Rate FiO2 01/29/17 12:04 98.7 73 12 147/83 (104) 95 01/29/17 07:15 97.7 73 20 144/86 (105) 93 01/29/17 04:26 97.7 74 16 128/67 (87) 92 01/29/17 00:00 96.5 73 16 129/70 (89) 92 01/28/17 20:00 96.9 87 16 125/77 (93) 96 01/28/17 16:00 97.7 79 17 103/68 (80) 99 I/O 01/28/17 01/28/17 01/28/17 01/29/17 01/29/17 01/29/17 07:00 15:00 23:00 07:00 15:00 23:00 Intake Total 1118 ml 770 ml 751 ml Output Total 100 ml 725 ml Balance 1018 ml 45 ml 751 ml Intake Oral 480 ml 720 ml IV Total 638 ml 50 ml 751 ml Output Urine Total 100 ml 725 ml # Voids 2 4 # Bowel Movements 1 0 2 Result Diagram: 01/28/1752 01/28/17651 Objective Remarks GENERAL: SKIN: Warm and dry. HEAD: Atraumatic. Normocephalic. EYES: Pupils equal and round. No scleral icterus. No injection or drainage. ENT: No nasal bleeding or discharge. Mucous membranes pink and moist. NECK: Trachea midline. No JVD. CARDIOVASCULAR: Regular rate and rhythm. RESPIRATORY: No accessory muscle use. Clear to auscultation. Breath sounds equal bilaterally. GASTROINTESTINAL: Abdomen soft, non-tender, nondistended. Hepatic and splenic margins not palpable. MUSCULOSKELETAL: Extremities without clubbing, cyanosis, or edema. No obvious deformities. NEUROLOGICAL: Awake and alert. No obvious cranial nerve deficits. Motor grossly within normal limits. Five out of 5 muscle strength in the arms and legs. Normal speech. PSYCHIATRIC: Appropriate mood and affect; insight and judgment normal. Assessment and Plan Assessment and Plan Laboratory Tests Test 01/27/17 09:10 01/27/17 13:05 01/28/17 06:52 01/29/17 06:38 Red Blood Count 4.12 MIL/MM3 (4.50-5.90) 3.98 MIL/MM3 (4.50-5.90) Hemoglobin 12.6 GM/DL (13.0-17.0) 12.2 GM/DL (13.0-17.0) Hematocrit 36.5 % (39.0-51.0) 35.9 % (39.0-51.0) Platelet Count 123 TH/MM3 (150-450) Neutrophils (%) (Auto) 78.5 % (16.0-70.0) Lymphocytes (%) (Auto) 6.9 % (9.0-44.0) Monocytes (%) (Auto) 13.3 % (0.0-8.0) 11.2 % (0.0-8.0) Lymphocytes # (Auto) 0.6 TH/MM3 (1.0-4.8) Monocytes # (Auto) 1.1 TH/MM3 (0-0.9) 1.2 TH/MM3 (0-0.9) Random Glucose 129 MG/DL (74-106) 122 MG/DL (74-106) Estimat Glomerular Filtration Rate 81 ML/MIN (>89) 82 ML/MIN (>89) Ammonia 38 MCMOL/L (11-32) Troponin I LESS THAN 0.02 NG/ML Thyroid Stimulating Hormone 3rd Gen 22.700 uIU/ML (0.358-3.740) Urine Opiates Screen POS (NEG) Test 01/29/17 13:20 Discussed Condition With Laboratory Tests Test 01/27/17 09:10 01/27/17 13:05 01/28/17 06:52 01/29/17 06:38 Red Blood Count 4.12 MIL/MM3 (4.50-5.90) 3.98 MIL/MM3 (4.50-5.90) Hemoglobin 12.6 GM/DL (13.0-17.0) 12.2 GM/DL (13.0-17.0) Hematocrit 36.5 % (39.0-51.0) 35.9 % (39.0-51.0) Platelet Count 123 TH/MM3 (150-450) Neutrophils (%) (Auto) 78.5 % (16.0-70.0) Lymphocytes (%) (Auto) 6.9 % (9.0-44.0) Monocytes (%) (Auto) 13.3 % (0.0-8.0) 11.2 % (0.0-8.0) Lymphocytes # (Auto) 0.6 TH/MM3 (1.0-4.8) Monocytes # (Auto) 1.1 TH/MM3 (0-0.9) 1.2 TH/MM3 (0-0.9) Random Glucose 129 MG/DL (74-106) 122 MG/DL (74-106) Estimat Glomerular Filtration Rate 81 ML/MIN (>89) 82 ML/MIN (>89) Ammonia 38 MCMOL/L (11-32) Troponin I LESS THAN 0.02 NG/ML Thyroid Stimulating Hormone 3rd Gen 22.700 uIU/ML (0.358-3.740) Urine Opiates Screen POS (NEG) Test 01/29/17 13:20 Physician Attestation PNEUMONIA ATYPICAL WORSENING ON LEFT PLAN BRONCHOSCOPY Yesy Otoole MD Jan 29, 2017 15:25
[2017-01-29 16:24] LABS: C. DIFF EPI 027 PRESUMPTIVE NEGATIVE (NEGATIVE)
[2017-01-29] MEDS ORDERED: DEXT 5%-NACL 0.45% 1000 ML INJ 1,000 ML IV SCH (16:47)
--- NOTE | 2017-01-29 16:48 | HHI.PR ---
Subjective Remarks alert no SOB AT REST Objective Vital Signs Date Time Temp Pulse Resp B/P (MAP) Pulse Ox O2 Delivery O2 Flow Rate FiO2 01/29/17 16:00 97.9 68 16 148/89 (108) 99 01/29/17 12:04 98.7 73 12 147/83 (104) 95 01/29/17 07:15 97.7 73 20 144/86 (105) 93 01/29/17 04:26 97.7 74 16 128/67 (87) 92 01/29/17 00:00 96.5 73 16 129/70 (89) 92 01/28/17 20:00 96.9 87 16 125/77 (93) 96 I/O 01/28/17 01/28/17 01/28/17 01/29/17 01/29/17 01/29/17 07:00 15:00 23:00 07:00 15:00 23:00 Intake Total 1118 ml 770 ml 751 ml Output Total 100 ml 725 ml Balance 1018 ml 45 ml 751 ml Intake Oral 480 ml 720 ml IV Total 638 ml 50 ml 751 ml Output Urine Total 100 ml 725 ml # Voids 2 4 # Bowel Movements 1 0 2 Result Diagram: 01/28/1752 01/28/17651 Objective Remarks GENERAL: SKIN: Warm and dry. HEAD: Atraumatic. Normocephalic. EYES: Pupils equal and round. No scleral icterus. No injection or drainage. ENT: No nasal bleeding or discharge. Mucous membranes pink and moist. NECK: Trachea midline. No JVD. CARDIOVASCULAR: Regular rate and rhythm. RESPIRATORY: No accessory muscle use. Clear to auscultation. Breath sounds equal bilaterally. GASTROINTESTINAL: Abdomen soft, non-tender, nondistended. Hepatic and splenic margins not palpable. MUSCULOSKELETAL: Extremities without clubbing, cyanosis, or edema. No obvious deformities. NEUROLOGICAL: Awake and alert. No obvious cranial nerve deficits. Motor grossly within normal limits. Five out of 5 muscle strength in the arms and legs. Normal speech. PSYCHIATRIC: Appropriate mood and affect; insight and judgment normal. Assessment and Plan Assessment and Plan BRONCHOSCOPY AM Laboratory Tests Test 01/27/17 09:10 01/27/17 13:05 01/28/17 06:52 01/29/17 06:38 Red Blood Count 4.12 MIL/MM3 (4.50-5.90) 3.98 MIL/MM3 (4.50-5.90) Hemoglobin 12.6 GM/DL (13.0-17.0) 12.2 GM/DL (13.0-17.0) Hematocrit 36.5 % (39.0-51.0) 35.9 % (39.0-51.0) Platelet Count 123 TH/MM3 (150-450) Neutrophils (%) (Auto) 78.5 % (16.0-70.0) Lymphocytes (%) (Auto) 6.9 % (9.0-44.0) Monocytes (%) (Auto) 13.3 % (0.0-8.0) 11.2 % (0.0-8.0) Lymphocytes # (Auto) 0.6 TH/MM3 (1.0-4.8) Monocytes # (Auto) 1.1 TH/MM3 (0-0.9) 1.2 TH/MM3 (0-0.9) Random Glucose 129 MG/DL (74-106) 122 MG/DL (74-106) Estimat Glomerular Filtration Rate 81 ML/MIN (>89) 82 ML/MIN (>89) Ammonia 38 MCMOL/L (11-32) Troponin I LESS THAN 0.02 NG/ML Thyroid Stimulating Hormone 3rd Gen 22.700 uIU/ML (0.358-3.740) Urine Opiates Screen POS (NEG) Test 01/29/17 13:20 Laboratory Tests Test 01/27/17 09:10 01/27/17 13:05 01/28/17 06:52 01/29/17 06:38 Red Blood Count 4.12 MIL/MM3 (4.50-5.90) 3.98 MIL/MM3 (4.50-5.90) Hemoglobin 12.6 GM/DL (13.0-17.0) 12.2 GM/DL (13.0-17.0) Hematocrit 36.5 % (39.0-51.0) 35.9 % (39.0-51.0) Platelet Count 123 TH/MM3 (150-450) Neutrophils (%) (Auto) 78.5 % (16.0-70.0) Lymphocytes (%) (Auto) 6.9 % (9.0-44.0) Monocytes (%) (Auto) 13.3 % (0.0-8.0) 11.2 % (0.0-8.0) Lymphocytes # (Auto) 0.6 TH/MM3 (1.0-4.8) Monocytes # (Auto) 1.1 TH/MM3 (0-0.9) 1.2 TH/MM3 (0-0.9) Random Glucose 129 MG/DL (74-106) 122 MG/DL (74-106) Estimat Glomerular Filtration Rate 81 ML/MIN (>89) 82 ML/MIN (>89) Ammonia 38 MCMOL/L (11-32) Troponin I LESS THAN 0.02 NG/ML Thyroid Stimulating Hormone 3rd Gen 22.700 uIU/ML (0.358-3.740) Urine Opiates Screen POS (NEG) Test 01/29/17 13:20 Discharge Planning GENERAL: SKIN: Warm and dry. HEAD: Atraumatic. Normocephalic. EYES: Pupils equal and round. No scleral icterus. No injection or drainage. ENT: No nasal bleeding or discharge. Mucous membranes pink and moist. NECK: Trachea midline. No JVD. CARDIOVASCULAR: Regular rate and rhythm. RESPIRATORY: No accessory muscle use. Clear to auscultation. Breath sounds equal bilaterally. GASTROINTESTINAL: Abdomen soft, non-tender, nondistended. Hepatic and splenic margins not palpable. MUSCULOSKELETAL: Extremities without clubbing, cyanosis, or edema. No obvious deformities. NEUROLOGICAL: Awake and alert. No obvious cranial nerve deficits. Motor grossly within normal limits. Five out of 5 muscle strength in the arms and legs. Normal speech. PSYCHIATRIC: Appropriate mood and affect; insight and judgment normal. Yesy Hayward MD Jan 29, 2017 16:48
[2017-01-29] MEDS: QUEtiapine FUMARATE 100 MG TAB PO SCH (22:15)
[2017-01-29] MEDS: DIVALPROEX SODIUM E.R. 500 MG TAB PO SCH (22:15)
[2017-01-29] MEDS: metroNIDAZOLE 500 MG TAB PO SCH (22:15)
[2017-01-30] VITALS (9 sets, daily range): BP systolic 115–152; BP diastolic 73–86; PULSE 61–89; RESP 12–20; TEMP 96.3–98.9; O2SAT 92–97
[2017-01-30] MEDS: metroNIDAZOLE 500 MG TAB PO SCH ×4 (02:13→18:08)
[2017-01-30] MEDS: PIPERACIL-TAZO 3.375 GM PREMIX 50 ML IV SCH ×4 (02:14→22:29)
[2017-01-30 06:08] LABS: PROTHROMBIN TIME - PATIENT 11.1 SEC (9.8-11.6)
[2017-01-30] MEDS: LEVOTHYROXINE SODIUM 125 MCG TAB PO SCH (06:37)
[2017-01-30] MEDS ORDERED: LIDOCAINE HCL 2% 50 ML VIAL ONE (07:03)
[2017-01-30] MEDS ORDERED: EPINEPHrine HCL (1:1000) 1 MG/ML VIAL ONE (07:04)
[2017-01-30] MEDS: PANTOPRAZOLE SOD 40 MG DELAYED RELEASE TAB PO SCH ×2 (07:21→22:28)
[2017-01-30] MEDS: METOPROLOL TARTRATE 100 MG TAB PO SCH ×2 (07:21→22:26)
[2017-01-30] MEDS: LIOTHYRONINE SODIUM 5 MCG TAB PO SCH ×2 (07:22→22:27)
[2017-01-30] MEDS: GABAPENTIN 400 MG CAP PO SCH ×3 (07:22→18:08)
[2017-01-30] MEDS: INSULIN ASPART SUPPLEMENTAL SCALE SQ SCH ×4 (07:24→21:00)
[2017-01-30] MEDS: SODIUM CHLORIDE 0.9% FLUSH 10 ML FLUSH IV FLUSH SCH ×2 (07:25→21:00)
[2017-01-30] MEDS: ASPIRIN EC 81 MG TABEC PO SCH (07:25)
[2017-01-30] MEDS ORDERED: FAMOTIDINE 20 MG/2 ML VIAL ONE (07:50)
[2017-01-30] MEDS ORDERED: MIDAZOLAM HCL 2 MG/2 ML VIAL ONE (07:50)
[2017-01-30] MEDS ORDERED: METOCLOPRAMIDE HCL 10 MG/2 ML VIAL ONE (07:52)
[2017-01-30] MEDS ORDERED: DO NOT ADM ANY ANTICOAGULANT DRUGS PRN (08:32)
--- NOTE | 2017-01-30 08:47 | HHI.PR ---
Subjective Remarks alert no SOB AT REST Objective Vital Signs Date Time Temp Pulse Resp B/P (MAP) Pulse Ox O2 Delivery O2 Flow Rate FiO2 01/30/17 07:41 97.1 67 16 135/86 (102) 96 01/30/17 04:34 96.5 68 18 123/73 (90) 92 01/30/17 00:07 98.5 70 18 152/82 (105) 97 01/29/17 20:00 97.5 71 18 166/90 (115) 93 01/29/17 17:37 99 01/29/17 16:00 97.9 68 16 148/89 (108) 99 01/29/17 12:04 98.7 73 12 147/83 (104) 95 I/O 01/29/17 01/29/17 01/29/17 01/30/17 01/30/17 01/30/17 07:00 15:00 23:00 07:00 15:00 23:00 Intake Total 751 ml 1759 ml 660 ml Balance 751 ml 1759 ml 660 ml Intake Oral 620 ml IV Total 751 ml 1139 ml 660 ml # Voids 4 4 2 # Bowel Movements 2 4 Result Diagram: 01/28/1752 01/28/17651 Objective Remarks GENERAL: SKIN: Warm and dry. HEAD: Atraumatic. Normocephalic. EYES: Pupils equal and round. No scleral icterus. No injection or drainage. ENT: No nasal bleeding or discharge. Mucous membranes pink and moist. NECK: Trachea midline. No JVD. CARDIOVASCULAR: Regular rate and rhythm. RESPIRATORY: No accessory muscle use. Clear to auscultation. Breath sounds equal bilaterally. GASTROINTESTINAL: Abdomen soft, non-tender, nondistended. Hepatic and splenic margins not palpable. MUSCULOSKELETAL: Extremities without clubbing, cyanosis, or edema. No obvious deformities. NEUROLOGICAL: Awake and alert. No obvious cranial nerve deficits. Motor grossly within normal limits. Five out of 5 muscle strength in the arms and legs. Normal speech. PSYCHIATRIC: Appropriate mood and affect; insight and judgment normal. Assessment and Plan Assessment and Plan Laboratory Tests Test 01/27/17 09:10 01/27/17 13:05 01/28/17 06:52 01/29/17 06:38 Red Blood Count 4.12 MIL/MM3 (4.50-5.90) 3.98 MIL/MM3 (4.50-5.90) Hemoglobin 12.6 GM/DL (13.0-17.0) 12.2 GM/DL (13.0-17.0) Hematocrit 36.5 % (39.0-51.0) 35.9 % (39.0-51.0) Platelet Count 123 TH/MM3 (150-450) Neutrophils (%) (Auto) 78.5 % (16.0-70.0) Lymphocytes (%) (Auto) 6.9 % (9.0-44.0) Monocytes (%) (Auto) 13.3 % (0.0-8.0) 11.2 % (0.0-8.0) Lymphocytes # (Auto) 0.6 TH/MM3 (1.0-4.8) Monocytes # (Auto) 1.1 TH/MM3 (0-0.9) 1.2 TH/MM3 (0-0.9) Random Glucose 129 MG/DL (74-106) 122 MG/DL (74-106) Estimat Glomerular Filtration Rate 81 ML/MIN (>89) 82 ML/MIN (>89) Ammonia 38 MCMOL/L (11-32) Troponin I LESS THAN 0.02 NG/ML Thyroid Stimulating Hormone 3rd Gen 22.700 uIU/ML (0.358-3.740) Urine Opiates Screen POS (NEG) Test 01/29/17 13:20 01/30/17 04:39 Stool C. difficile Toxin (PCR) POSITIVE (NEGATIVE) Laboratory Tests Test 01/27/17 09:10 01/27/17 13:05 01/28/17 06:52 01/29/17 06:38 Red Blood Count 4.12 MIL/MM3 (4.50-5.90) 3.98 MIL/MM3 (4.50-5.90) Hemoglobin 12.6 GM/DL (13.0-17.0) 12.2 GM/DL (13.0-17.0) Hematocrit 36.5 % (39.0-51.0) 35.9 % (39.0-51.0) Platelet Count 123 TH/MM3 (150-450) Neutrophils (%) (Auto) 78.5 % (16.0-70.0) Lymphocytes (%) (Auto) 6.9 % (9.0-44.0) Monocytes (%) (Auto) 13.3 % (0.0-8.0) 11.2 % (0.0-8.0) Lymphocytes # (Auto) 0.6 TH/MM3 (1.0-4.8) Monocytes # (Auto) 1.1 TH/MM3 (0-0.9) 1.2 TH/MM3 (0-0.9) Random Glucose 129 MG/DL (74-106) 122 MG/DL (74-106) Estimat Glomerular Filtration Rate 81 ML/MIN (>89) 82 ML/MIN (>89) Ammonia 38 MCMOL/L (11-32) Troponin I LESS THAN 0.02 NG/ML Thyroid Stimulating Hormone 3rd Gen 22.700 uIU/ML (0.358-3.740) Urine Opiates Screen POS (NEG) Test 01/29/17 13:20 01/30/17 04:39 Stool C. difficile Toxin (PCR) POSITIVE (NEGATIVE) BRONCHOSCOPY Test 01/27/17 09:10 01/27/17 13:05 01/28/17 06:52 01/29/17 06:38 Red Blood Count 4.12 MIL/MM3 (4.50-5.90) 3.98 MIL/MM3 (4.50-5.90) Hemoglobin 12.6 GM/DL (13.0-17.0) 12.2 GM/DL (13.0-17.0) Hematocrit 36.5 % (39.0-51.0) 35.9 % (39.0-51.0) Platelet Count 123 TH/MM3 (150-450) Neutrophils (%) (Auto) 78.5 % (16.0-70.0) Lymphocytes (%) (Auto) 6.9 % (9.0-44.0) Monocytes (%) (Auto) 13.3 % (0.0-8.0) 11.2 % (0.0-8.0) Lymphocytes # (Auto) 0.6 TH/MM3 (1.0-4.8) Monocytes # (Auto) 1.1 TH/MM3 (0-0.9) 1.2 TH/MM3 (0-0.9) Random Glucose 129 MG/DL (74-106) 122 MG/DL (74-106) Estimat Glomerular Filtration Rate 81 ML/MIN (>89) 82 ML/MIN (>89) Ammonia 38 MCMOL/L (11-32) Troponin I LESS THAN 0.02 NG/ML Thyroid Stimulating Hormone 3rd Gen 22.700 uIU/ML (0.358-3.740) Urine Opiates Screen POS (NEG) Test 01/29/17 13:20 Laboratory Tests Test 01/27/17 09:10 01/27/17 13:05 01/28/17 06:52 01/29/17 06:38 Red Blood Count 4.12 MIL/MM3 (4.50-5.90) 3.98 MIL/MM3 (4.50-5.90) Hemoglobin 12.6 GM/DL (13.0-17.0) 12.2 GM/DL (13.0-17.0) Hematocrit 36.5 % (39.0-51.0) 35.9 % (39.0-51.0) Platelet Count 123 TH/MM3 (150-450) Neutrophils (%) (Auto) 78.5 % (16.0-70.0) Lymphocytes (%) (Auto) 6.9 % (9.0-44.0) Monocytes (%) (Auto) 13.3 % (0.0-8.0) 11.2 % (0.0-8.0) Lymphocytes # (Auto) 0.6 TH/MM3 (1.0-4.8) Monocytes # (Auto) 1.1 TH/MM3 (0-0.9) 1.2 TH/MM3 (0-0.9) Random Glucose 129 MG/DL (74-106) 122 MG/DL (74-106) Estimat Glomerular Filtration Rate 81 ML/MIN (>89) 82 ML/MIN (>89) Ammonia 38 MCMOL/L (11-32) Troponin I LESS THAN 0.02 NG/ML Thyroid Stimulating Hormone 3rd Gen 22.700 uIU/ML (0.358-3.740) Urine Opiates Screen POS (NEG) Test 01/29/17 13:20 Yesy Hayward MD Jan 30, 2017 08:47
--- NOTE | 2017-01-30 09:12 | MR ---
cc: ELLIOT ZARATE DATE: 01/30/2017 PROCEDURE Fiberoptic bronchoscopy flexible. REASON FOR BRONCHOSCOPY Bilateral pneumonia, worsening on the left. DETAILS OF PROCEDURE Fiberoptic bronchoscopy performed via LMA. Vocal cords intact. Trachea moderately hyperemic. Stephani sharp. Thick mucous plugs seen throughout the tracheobronchial tree which were all removed. No endobronchial obstruction or mass lesion. Diffuse moderate to severe hyperemia throughout noted. Washings obtained from both sides of the tracheobronchial tree for routine, TB, fungal culture and cytological exam. Cytologic brush biopsies left lower lobe obtained, sent for cytological exam, special stains for Pneumocystis carinii. Microbiology brush was used as well to obtain appropriate culture. Procedure well-tolerated. Patient transferred to Recovery in stable condition. IMPRESSION 1. Moderate to severe tracheobronchitis. 2. Excess mucoid secretion and plugging. 3. Samples obtained as above. 4. Procedure well-tolerated. 5. Patient transferred to Recovery in stable condition. MD SHANNON Shaw/RADHA /8:40 AM /8:52 AM
[2017-01-30] MEDS: LURASIDONE 40 MG TAB PO SCH (09:47)
[2017-01-30] MEDS: SPIRONOLACTONE 50 MG TAB PO SCH ×2 (09:48→22:26)
[2017-01-30] MEDS: MORPHINE SULFATE 15 MG CONTROLLED RELEASE TAB PO SCH ×2 (09:48→22:28)
[2017-01-30] MEDS: FLUTICASONE 200 MCG/VILANTEROL 25 MCG INHALER INH SCH (09:50)
[2017-01-30] MEDS ORDERED: LACTATED RINGER'S 1000 ML INJ 1,000 ML IV ONE (12:00)
[2017-01-30] MEDS ORDERED: PROPOFOL 200 MG/20 ML AMP IV ONE (12:00)
[2017-01-30] MEDS ORDERED: LIDOCAINE HCL 1% PF 5 ML AMPULE OTHER ONE (12:00)
[2017-01-30] MEDS: ENOXAPARIN SODIUM 30 MG/0.3 ML SYRINGE SQ SCH (12:25)
--- NOTE | 2017-01-30 12:40 | PD.CONS ---
History of Present Illness Service Infectious Disease Consult Requested By Dr Tracee Tiwari Reason for Consult Evaluate patient with recurrent PNA and C diff colitis Primary Care Physician Emmett Velasco MD, PhD Diagnoses: History of Present Illness Patient seen and examined. Records reviewed. Patient is a 51-year-old male, percent into the hospital complaining of significant weakness, and several day history of low-grade fevers. He also has been having problem with diarrhea over the last month, and some days the frequency is not much, but he always has loose stools. Didn't really have much of abdominal pain or discomfort. No nausea or vomiting. Patient has been having problem with recurrent pneumonia, and back in October he was treated for MRSA pneumonia. In the last 2-3 weeks, he apparently was diagnosed to have another pneumonia, and he completed 2 weeks of oral antibiotics. Around the same time he was ready having diarrhea, and he has had C. difficile testing and came back negative. Patient has been admitted January 27, and had some fevers during his first hospital day. CT of the chest showed improving infiltrates on the right, but he has some new infiltrates on the left. CXR with persistent R base infiltrate, clear on L. He still brings up some yellow to green phlegm. He initially had about one bowel movement per day, but yesterday his diarrhea worsened again, and C. difficile testing came back positive. His WBC is normal. Patient had a bronchoscopy today, and he had a lot of mucus plugs, but no endobronchial lesions noted. Infectious disease consultation has been requested to evaluate the patient with recurrent pneumonia, and C. difficile colitis. Review of Systems Constitutional: COMPLAINS OF: Fatigue, Fever, Chills Eyes: DENIES: Eye pain Ears, nose, mouth, throat: DENIES: Nasal discharge, Oral lesions, Throat pain, Ear Pain, Sinus Pain Respiratory: COMPLAINS OF: Cough, Sputum production, Shortness of breath, DENIES: Hemoptysis Cardiovascular: COMPLAINS OF: Dyspnea on Exertion, DENIES: Chest pain, Palpitations, Syncope, Lower Extremity Edema Gastrointestinal: COMPLAINS OF: Diarrhea, DENIES: Abdominal pain, Nausea, Vomiting, Difficulty Swallowing Genitourinary: DENIES: Urinary frequency, Urinary incontinence, Hematuria, Dysuria Musculoskeletal: DENIES: Joint pain, Joint Swelling Integumentary: DENIES: Rash Hematologic/lymphatic: DENIES: Lymphadenopathy Immunologic/allergic: DENIES: Urticaria Neurologic: DENIES: Headache Psychiatric: DENIES: Hallucinations Past Family Social History Allergies: Coded Allergies: cholestyramine (Verified Allergy, Mild, NAUSEA, 01/27/17) diltiazem (Verified Allergy, Mild, Edema, 01/27/17) enalaprilat (Verified Allergy, Mild, Cough, 01/27/17) isradipine (Verified Allergy, Mild, Edema, 01/27/17) latex (Verified Allergy, Mild, Rash, 01/27/17) nicardipine (Verified Allergy, Mild, Edema, 01/27/17) nifedipine (Verified Allergy, Mild, Edema, 01/27/17) nimodipine (Verified Allergy, Mild, Edema, 01/27/17) verapamil (Verified Allergy, Mild, Edema, 01/27/17) amlodipine (Verified Allergy, Unknown, enlarged liver, 01/27/17) atorvastatin (Verified Allergy, Unknown, enlarged liver, 01/27/17) pravastatin (Verified Allergy, Unknown, enlarged liver, 01/27/17) simvastatin (Verified Allergy, Unknown, enlarged liver, 01/27/17) *MDRO Multi-Drug Resistant Organism (Verified Adverse Reaction, Unknown, 01/27/17) MRSA (sputum) 10/27/16 Past Medical History Generalized anxiety disorder Conn's syndrome Bipolar disorder History of thyroid cancer Chronic kidney disease stage I Obesity Diabetes with neuropathy and nephropathy Hypertriglyceridemia Chronic back pain Esophageal reflux disorder Hypertension Hypothyroidism Metabolic syndrome Migraine headaches Obesity Panic disorder Rheumatoid arthritis Drug-induced Parkinson syndrome Past Surgical History Cardiac catheter reportedly negative Bronchoscopy [place] [address] Colindres Cholecystectomy Circumcision due to phimosis Lumbar laminectomy Gastric bypass surgery for morbid obesity Multiple lumbar paravertebral blocks Rhizotomy Spinal neurostimulator placement Vasectomy Total thyroidectomy L4 to S1 fusion Reported Medications I attest that I obtained, updated or reviewed the home and current medications. Reported Meds & Active Scripts Active Flagyl (Metronidazole) 500 Mg Tab 500 Mg PO TID 7 Days Hm Loperamide HCl (Loperamide HCl) 2 Mg Cap 2 Mg PO Q4H PRN 5 Days Dextromethorphan/Guaifene 10-100 mg/5Ml (Dextromethorphan-Guaifenesin) 1 Syp Syp 5 Ml PO Q6H PRN 10 Days Gas Relief Maximum Streng (Simethicone) 125 Mg Chw 125 Mg PO Q8HR 30 Days Cleocin (Clindamycin HCl) 150 Mg Cap 300 Mg PO Q8HR 7 Days Morphine ER (Morphine Sulfate) 15 Mg Tab 15 Mg PO BID Pantoprazole (Pantoprazole Sodium) 40 Mg Tab 40 Mg PO BID NEB Aspirin EC (Aspirin) 81 Mg Tabdr 81 Mg PO DAILY Reported Cytomel (Liothyronine Sodium) 5 Mcg Tablet 10 Mcg PO BID Vitamin D3 (Cholecalciferol) 50,000 Unit Cap 50,000 Units PO 2XWEEK Mobic (Meloxicam) 15 Mg Tab 15 Mg PO DAILY Take with food Seroquel (Quetiapine Fumarate) 25 Mg Tab 125 Mg PO HS Gabapentin 400 Mg Cap 800 Cap PO TID Breo Ellipta Inh (Fluticasone/Vilanterol) 200-25 Mcg/Act Inh 1 Puff INH DAILY Use daily at the same time. Latuda (Lurasidone) 40 Mg Tab 40 Mg PO DAILY Spironolactone 50 Mg Tab 100 Mg PO BID Ventolin Hfa 18 GM Inh (Albuterol Sulfate) 90 Mcg/Act Aerosol 2 Puff INH Q4H PRN Chewable Calcium (Calcium Carbonate) 500 Mg Chew 500 Mg PO BID Depakote ER (Divalproex Sodium) 500 Mg Khanh 2,500 Mg PO HS Humulin R U-500 (Concentrate) Inj (Insulin Regular (Human) Concentrate Inj) 10, 000 Unit/20 Ml Vial VIA INSULIN PUMP Levothyroxine (Levothyroxine Sodium) 125 Mcg Tab 250 Mcg PO DAILY Metoprolol Tartrate 100 Mg Tab 200 Mg PO BID Imitrex (Sumatriptan Succinate) 100 Mg Tab 100 Mg PO ONCE PRN If a satisfactory response has not been obtained at 2 hours, a second dose may be administered Active Ordered Medications Tylenol prn Albuterol prn Aspirin Depakote Lovenox Brianna Ellipta inhaler Neurontin Insulin sliding scle Synthroid Cytomel Latuda MOM prn Lopressor Flagyl Oramorph Zofran prn Protonix Zosyn Potassium Seroquel Aldactone Family History Father had bipolar disorder, hypertension, hyperlipidemia, obesity, type 2 diabetes Mother has hypertension There is family history of pancreatic cancer Social History Patient is and lives with his elderly mother He has 2 children No smoking Rarely drinks any alcohol No illicit drug use Works at [employer] Physical Exam Vital Signs Vital Signs Date Time Temp Pulse Resp B/P (MAP) Pulse Ox O2 Delivery O2 Flow Rate FiO2 01/30/17 11:17 98.4 66 12 129/75 (93) 95 01/30/17 10:13 96.3 61 16 115/73 (87) 95 01/30/17 09:14 63 12 125/75 (92) 95 Nasal Cannula 3 01/30/17 09:00 66 16 119/73 (88) 94 Nasal Cannula 4 01/30/17 08:45 69 16 124/76 (92) 96 Nasal Cannula 4 01/30/17 08:34 98.1 73 16 131/79 (96) 91 Nasal Cannula 4 01/30/17 07:41 97.1 67 16 135/86 (102) 96 01/30/17 04:34 96.5 68 18 123/73 (90) 92 01/30/17 00:07 98.5 70 18 152/82 (105) 97 01/29/17 20:00 97.5 71 18 166/90 (115) 93 01/29/17 17:37 99 01/29/17 16:00 97.9 68 16 148/89 (108) 99 Physical Exam GENERAL: Patient is an obese, well-developed CM, awake and alert, not in respiratory distress. Comfortable at rest, on nasal O2 SKIN: Cool and dry. No generalized rash, no ecchymoses and no evidence of embolic lesions. HEAD: Atraumatic. Normocephalic. No temporal wasting, or tenderness. EYES: [place] conjunctiva. No petechia or hemorrhage. Pupils equal, round and reactive to light. Extraocular movements full and intact. No scleral icterus. No injection or drainage. EARS, NOSE AND THROAT: Nose without bleeding or purulent nasal discharge. No sinus tenderness. Mucous membranes pink and moist. No oral lesions noted. No exudate. No oral thrush. NECK: Trachea midline. Supple and not tender, no meningeal signs CARDIOVASCULAR: Regular rate and rhythm. No murmurs, rubs or gallops heard RESPIRATORY: Some rales at dependent portions, no wheezing or rhonchi. Equal breath sounds bilaterally. ABDOMEN: Soft, mildly tender, nondistended. Bowel sounds present and normoactive. No guarding. No rebound. No organomegaly. EXTREMITIES: No clubbing, cyanosis, or edema.No joint effusion, has good ROM. No calf tenderness. Well perfused and warm. NEUROLOGICAL: Awake and alert. Cranial nerves grossly intact. Motor grossly within normal limits. PSYCHIATRIC: Normal affect, calm and cooperative. LINE: No evidence of infection Laboratory Laboratory Tests Test 01/29/17 13:20 01/30/17 04:39 Eosinophil Stool Smear NONE SEEN Stool C. difficile Toxin (PCR) POSITIVE Stl C. difficile Toxin Epiderm 027 PRESUMPTIVE NEGATIVE Prothrombin Time 11.1 Prothromb Time International Ratio 1.0 Date/Time Source Procedure Growth Status 01/27/17 09:20 Blood Peripheral Aerobic Blood Culture - Preliminary NO GROWTH IN 3 DAYS Resulted 01/27/17 09:20 Blood Peripheral Anaerobic Blood Culture - Preliminary NO GROWTH IN 3 DAYS Resulted 01/29/17 13:20 Stool Stool Cryptosporidium Exam - Final NEGATIVE - NO CRYPTOSPORIDIUM ANTIGEN... Complete 01/29/17 13:20 Stool Stool Stool Pus (MITCHELL) - Final FEW WBC'S Complete 01/29/17 13:20 Stool Stool Giardia Antigen ([facility]LL) - Final NEGATIVE - NO GIARDIA ANTIGEN DETECTE... Complete 01/30/17 08:15 Bronchial Brushings Left Lower Lobe Fungal Smear Pending Received 01/30/17 08:15 Bronchial Brushings Left Lower Lobe Fungal Culture Pending Received Result Diagram: 01/28/17 0652 01/28/17 0652 Imaging RADIOLOGY STUDIES/FILMS REVIEWED Chest X-Ray 01/28/17 0800 Signed Impressions: Service Date/Time: Saturday, January 28, 2017 08:56 - CONCLUSION: Stable chest.. Glenn Morgan MD FACR Chest CT 01/27/17 0000 Signed Impressions: Service Date/Time: Friday, January 27, 2017 11:57 - CONCLUSION: Persistent groundglass patchy dispersed areas of density in the right lung with improvement of the area consolidation in the right lung there is slight worsening of patchy airspace disease ground glass dispersed in the superior segment of the left lower lobe. Marlon Alegria MD Assessment and Plan Assessment and Plan IMPRESSION Sepsis on presentation, and his main complaint is his diarrhea C diff colitis Seems to have problems with recurrent respiratory infections, Pneumonia - previous Hx MRSA PNA; had sputum C/S last year with M fortuitum on 1 specimen only Hx RA Multiple medical problems including DM, obesity, HTN, hypothyroidism, GERD RECOMMENDATION Continue Zosyn Continue Flagyl for C diff Add Vanco - prior MRSA Hx Lactinex If stools not better, add oral vancomycin for his C diff colitis Follow bronch C/S and adjust Abx for his PNA Monitor progress I will follow along with you Thank you for this consultation Discussed Condition With Explained plan to the patient Jackie Ro MD Jan 30, 2017 12:40
[2017-01-30] MEDS ORDERED: VANCOMYCIN INJ 1,500 MG in SODIUM CHLORID 0.9% 500 ML INJ 500 ML IV ONE (13:30)
[2017-01-30] MEDS ORDERED: Vancomycin Consult Pharmacy 1 EA OTHER SCH (13:30)
--- NOTE | 2017-01-30 14:20 | HHI.PR ---
Subjective Remarks Patient report only one BM today denies SOB has continued nonproductive cough Objective Vitals Vital Signs Date Time Temp Pulse Resp B/P (MAP) Pulse Ox O2 Delivery O2 Flow Rate FiO2 01/30/17 11:17 98.4 66 12 129/75 (93) 95 01/30/17 10:13 96.3 61 16 115/73 (87) 95 01/30/17 09:14 63 12 125/75 (92) 95 Nasal Cannula 3 01/30/17 09:00 66 16 119/73 (88) 94 Nasal Cannula 4 01/30/17 08:45 69 16 124/76 (92) 96 Nasal Cannula 4 01/30/17 08:34 98.1 73 16 131/79 (96) 91 Nasal Cannula 4 01/30/17 08:30 96 Nasal Cannula 3.00 01/30/17 07:41 97.1 67 16 135/86 (102) 96 01/30/17 04:34 96.5 68 18 123/73 (90) 92 01/30/17 00:07 98.5 70 18 152/82 (105) 97 01/29/17 20:00 97.5 71 18 166/90 (115) 93 01/29/17 17:37 99 01/29/17 16:00 97.9 68 16 148/89 (108) 99 01/30/17 01/30/17 01/31/17 15:00 23:00 07:00 Intake Total 200 ml Balance 200 ml Other 200 ml Result Diagram: 01/28/17 0652 01/28/17 0652 Other Results Laboratory Tests Test 01/28/17 06:52 01/29/17 06:38 01/29/17 13:20 01/30/17 04:39 White Blood Count 10.5 TH/MM3 Red Blood Count 3.98 MIL/MM3 Hemoglobin 12.2 GM/DL Hematocrit 35.9 % Mean Corpuscular Volume 90.3 FL Mean Corpuscular Hemoglobin 30.6 PG Mean Corpuscular Hemoglobin Concent 33.9 % Red Cell Distribution Width 16.2 % Platelet Count 156 TH/MM3 Mean Platelet Volume 8.2 FL Neutrophils (%) (Auto) 68.3 % Lymphocytes (%) (Auto) 18.4 % Monocytes (%) (Auto) 11.2 % Eosinophils (%) (Auto) 1.9 % Basophils (%) (Auto) 0.2 % Neutrophils # (Auto) 7.2 TH/MM3 Lymphocytes # (Auto) 1.9 TH/MM3 Monocytes # (Auto) 1.2 TH/MM3 Eosinophils # (Auto) 0.2 TH/MM3 Basophils # (Auto) 0.0 TH/MM3 CBC Comment DIFF FINAL Differential Comment Blood Urea Nitrogen 9 MG/DL Creatinine 0.97 MG/DL Random Glucose 122 MG/DL Calcium Level 8.7 MG/DL Sodium Level 140 MEQ/L Potassium Level 4.2 MEQ/L Chloride Level 104 MEQ/L Carbon Dioxide Level 26.1 MEQ/L Anion Gap 10 MEQ/L Estimat Glomerular Filtration Rate 82 ML/MIN Valproic Acid (Depakene) Level 98 MCG/ML Eosinophil Stool Smear NONE SEEN /HPF Stool C. difficile Toxin (PCR) POSITIVE Stl C. difficile Toxin Epiderm 027 PRESUMPTIVE NEGATIVE Prothrombin Time 11.1 SEC Prothromb Time International Ratio 1.0 RATIO Imaging Last Impressions Chest X-Ray 01/27/17 0000 Signed Impressions: Service Date/Time: Friday, January 27, 2017 09:16 - CONCLUSION: Hypoaerated lungs with minimal airspace disease in the right base. Otherwise stable evaluation compared to prior study 01/19 Jamison Castillo MD Objective Remarks GENERAL: This is an obese, well-developed patient, in no apparent distress. CARDIO: Regular. RESP: CTA bilaterally. No wheezes, rales, or rhonchi. ABD: +BS, soft, non-tender, nondistended. EXT: Extremities without clubbing, cyanosis, or edema. NEURO: Awake and alert. Motor and sensory grossly within normal limits. Normal speech. A/P Problem List: (1) Generalized weakness ICD Codes: R53.1 - Weakness Status: Acute Plan: - Pt is a 51 y/o WM with hypertension, hyperlipidemia, hypothyroidism, diabetes , diabetic nephropathy, rheumatoid arthritis, bipolar disorder, and drug-induced Parkinson's disease. - [place] [facility] [place] with complaints of generalized weakness and fever that began this morning. Pt was seen here on 01/19/17 in the ED for generalized weakness and diarrhea and was given Flagyl for suspected C. diff as the pt had recently taken antibiotics for pneumonia but never took the Flagyl. Prior that that he was seen as an outpt by Dr. Velasco in mid December and pt complained then of diarrhea with fecal urgency (was wearing depends) and abd pain. He was sent for stool studies which were negative for C. diff, salmonella, or Campylobacter. - He was sent for a CT Abd/pelvis (01/06) --> 2 new focal areas of density in the lateral right lung, hepatic steatosis, thickening of the upper stomach, which could be post-surgical or secondary to lack of full distension, nonobstructing 4mm right renal stone, a few scattered colonic diverticula, mild splenomegaly, and post-operative change in the lumbar spine. - He then had a CT Thorax (01/20/17) --> which noted distinct interval change in worsening in the right lung with diffuse groundglass and solid interstitial small nodules as well as fluid in the major fissure, left lung is relatively clear actual free in bud changes have cleared. - He states that the diarrhea has subsided. He had one BM yesterday. - His main complaint is that of fever and generalized weakness and this morning was unable to get out of bed without assistance. - Pt was febrile in the ED with Tmax at 103F and hypoxic at 91% on RA so he was given Tylenol and placed on 2 L NC with improvement. - Repeat CT Thorax 01/27/17 reviewed and reveals: Persistent groundglass patchy dispersed areas of density in the right lung with improvement of the area consolidation in the right lung there is slightly worsening of patchy airspace disease ground glass dispersed in the superior segment of the left lower lobe - Pt was given Rocephin and Azithromycin in the ED - Of note, the pt has hx of infectious lung mass in 2016, biopsy was negative for malignancy - He also had aspiration pneumonia in 10/2016. Some of his medications may be causing increased sedation making him more at risk for aspiration. Consult psychiatry to review his medications. Evaluated by Dr. Ramírez recommends continuing current regiment of psych meds - Previous sputum culture in 10/2016 with MRSA. 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 - IVF DC'd - Duonebs - Supportive care - Pulmonary consultation, evaluated by Dr. Hayward . per Dr. Hayward once stabilized, would consider proceeding with bronchoscopic examination and obtaining approximately cultures and other studies. 01/[address] Tiwari with Dr. Hayward plan for bronchoscopy - S/P Bronchoscopy await results - stool positive for C diff, Flagyl PO added - consult placed to ID added vancomycin IV as patient has a history of MRSA. Also added Lactinex - recheck labs in AM - DVT prophylaxis with Lovenox (2) Diarrhea ICD Codes: R19.7 - Diarrhea, unspecified Status: Resolved Plan: - Previous stool studies were negative - Pt feels that the diarrhea has improved - Pts last EGD/colonoscopy was 05/16/2016 --> nodular gastritis in the gastric antrum, gastric sleeve, and multiple polyps and hemorrhoids. - see above (3) Fever ICD Codes: R50.9 - Fever Status: Acute Plan: - See above. (4) Hypothyroid ICD Codes: E03.9 - Hypothyroidism, unspecified Status: Acute Plan: - Pt reported has been taking his home dose of Synthroid and Cytomel - TSH was 22.7 at admission and Free T4 is 5.0 (5) HTN (hypertension) ICD Codes: I10 - Essential (primary) hypertension Status: Chronic Plan: - Cont. home meds (6) Drug-induced Parkinson's disease ICD Codes: G21.19 - Other drug induced secondary parkinsonism Status: Chronic (7) Hyperlipidemia ICD Codes: E78.5 - Hyperlipidemia Status: Chronic Assessment and Plan Patient examined. Assessment and plan formulated with Teresa Saucedo PA-C. I agree with the above. Teresa Saucedo Jan 30, 2017 14:20 Camron Tiwari DO Feb 01, 2017 00:04
[2017-01-30] MEDS: NS + KCL 20 MEQ INJ 1,000 ML IV SCH ×2 (15:56→22:22)
[2017-01-30] MEDS: VANCOMYCIN INJ 2,000 MG in SODIUM CHLORID 0.9% 500 ML INJ 500 ML IV SCH (18:08)
[2017-01-30] MEDS: DIVALPROEX SODIUM E.R. 500 MG TAB PO SCH (22:26)
[2017-01-30] MEDS: QUEtiapine FUMARATE 100 MG TAB PO SCH (22:27)
[2017-01-31] VITALS (8 sets, daily range): BP systolic 133–163; BP diastolic 72–96; PULSE 60–85; RESP 17–20; TEMP 96.6–97.7; O2SAT 92–98
[2017-01-31] MEDS: metroNIDAZOLE 500 MG TAB PO SCH ×4 (00:17→16:29)
[2017-01-31] MEDS: PIPERACIL-TAZO 3.375 GM PREMIX 50 ML IV SCH ×4 (02:50→21:51)
[2017-01-31] MEDS: VANCOMYCIN INJ 2,000 MG in SODIUM CHLORID 0.9% 500 ML INJ 500 ML IV SCH ×2 (05:38→16:30)
[2017-01-31] MEDS: LEVOTHYROXINE SODIUM 125 MCG TAB PO SCH (05:38)
[2017-01-31] MEDS: INSULIN ASPART SUPPLEMENTAL SCALE SQ SCH ×4 (08:00→21:50)
[2017-01-31] MEDS: METOPROLOL TARTRATE 100 MG TAB PO SCH ×2 (08:51→21:00)
[2017-01-31] MEDS: SPIRONOLACTONE 50 MG TAB PO SCH ×2 (08:51→21:57)
[2017-01-31] MEDS: GABAPENTIN 400 MG CAP PO SCH ×2 (08:51→12:00)
[2017-01-31] MEDS: FLUTICASONE 200 MCG/VILANTEROL 25 MCG INHALER INH SCH (08:52)
[2017-01-31] MEDS: ASPIRIN EC 81 MG TABEC PO SCH (08:52)
[2017-01-31] MEDS: SODIUM CHLORIDE 0.9% FLUSH 10 ML FLUSH IV FLUSH SCH ×2 (08:52→21:00)
[2017-01-31] MEDS: NS + KCL 20 MEQ INJ 1,000 ML IV SCH (08:53)
[2017-01-31] MEDS: MORPHINE SULFATE 15 MG CONTROLLED RELEASE TAB PO SCH ×2 (08:53→22:00)
[2017-01-31] MEDS: PANTOPRAZOLE SOD 40 MG DELAYED RELEASE TAB PO SCH ×2 (08:53→21:59)
[2017-01-31 09:00] LABS: AUTOMATED NEUTROPHIL # 3.1 TH/MM3 (1.8-7.7); BASOPHIL % 0.8 % (0.0-2.0); EOSINOPHIL # 0.2 TH/MM3 (0-0.4); EOSINOPHIL % 3.8 % (0.0-4.0); HEMATOCRIT 34.7 % (39.0-51.0); HEMO FLAGS DIFF FINAL; LYMPH % 24.4 % (9.0-44.0); LYMPHOCYTE # 1.3 TH/MM3 (1.0-4.8); MEAN CELL VOLUME 90.2 FL (80.0-100.0); MEAN CORPUSCULAR HEMOGLOBIN 30.4 PG (27.0-34.0); MEAN CORPUSCULAR HGB CONC 33.7 % (32.0-36.0); MONO % 11.8 % (0.0-8.0); NEUT % 59.2 % (16.0-70.0); PLATELET COUNT 126 TH/MM3 (150-450); RED BLOOD COUNT 3.84 MIL/MM3 (4.50-5.90); RED CELL DISTRIBUTION WIDTH 15.6 % (11.6-17.2); WHITE BLOOD COUNT 5.2 TH/MM3 (4.0-11.0)
[2017-01-31] MEDS: LIOTHYRONINE SODIUM 5 MCG TAB PO SCH ×2 (09:00→21:51)
[2017-01-31] MEDS: LURASIDONE 40 MG TAB PO SCH ×2 (09:00→21:58)
[2017-01-31 09:24] LABS: BICARBONATE 28.3 MEQ/L (21.0-32.0); MAGNESIUM 1.6 MG/DL (1.5-2.5); POTASSIUM 3.7 MEQ/L (3.5-5.1)
--- NOTE | 2017-01-31 10:01 | HHI.PR ---
Subjective Remarks Diarrhea seems to be improving only 2 BMs in the past 24 hours patient denies SOB or cough Objective Vitals Vital Signs Date Time Temp Pulse Resp B/P (MAP) Pulse Ox O2 Delivery O2 Flow Rate FiO2 01/31/17 08:00 96.6 65 18 155/96 (115) 95 01/31/17 08:00 65 01/31/17 04:24 96.8 64 20 135/74 (94) 96 01/31/17 00:21 97.7 85 20 149/80 (103) 92 01/30/17 20:24 98.9 89 20 149/81 (103) 96 01/30/17 20:00 77 01/30/17 16:00 97.9 77 17 126/77 (93) 95 01/30/17 11:17 98.4 66 12 129/75 (93) 95 01/30/17 10:13 96.3 61 16 115/73 (87) 95 Result Diagram: 01/31/17 0801/31/17823 Other Results Laboratory Tests Test 01/29/17 06:38 01/29/17 13:20 01/30/17 04:39 01/31/17 08:24 Valproic Acid (Depakene) Level 98 MCG/ML Eosinophil Stool Smear NONE SEEN /HPF Stool C. difficile Toxin (PCR) POSITIVE Stl C. difficile Toxin Epiderm 027 PRESUMPTIVE NEGATIVE Prothrombin Time 11.1 SEC Prothromb Time International Ratio 1.0 RATIO White Blood Count 5.2 TH/MM3 Red Blood Count 3.84 MIL/MM3 Hemoglobin 11.7 GM/DL Hematocrit 34.7 % Mean Corpuscular Volume 90.2 FL Mean Corpuscular Hemoglobin 30.4 PG Mean Corpuscular Hemoglobin Concent 33.7 % Red Cell Distribution Width 15.6 % Platelet Count 126 TH/MM3 Mean Platelet Volume 7.9 FL Neutrophils (%) (Auto) 59.2 % Lymphocytes (%) (Auto) 24.4 % Monocytes (%) (Auto) 11.8 % Eosinophils (%) (Auto) 3.8 % Basophils (%) (Auto) 0.8 % Neutrophils # (Auto) 3.1 TH/MM3 Lymphocytes # (Auto) 1.3 TH/MM3 Monocytes # (Auto) 0.6 TH/MM3 Eosinophils # (Auto) 0.2 TH/MM3 Basophils # (Auto) 0.0 TH/MM3 CBC Comment DIFF FINAL Differential Comment Blood Urea Nitrogen 5 MG/DL Creatinine 1.00 MG/DL Random Glucose 146 MG/DL Calcium Level 8.7 MG/DL Magnesium Level 1.6 MG/DL Sodium Level 139 MEQ/L Potassium Level 3.7 MEQ/L Chloride Level 104 MEQ/L Carbon Dioxide Level 28.3 MEQ/L Anion Gap 7 MEQ/L Estimat Glomerular Filtration Rate 79 ML/MIN Imaging Last Impressions Chest X-Ray 01/27/17 0000 Signed Impressions: Service Date/Time: Friday, January 27, 2017 09:16 - CONCLUSION: Hypoaerated lungs with minimal airspace disease in the right base. Otherwise stable evaluation compared to prior study 01/19 Jamison Castillo MD Objective Remarks GENERAL: This is an obese, well-developed patient, in no apparent distress. CARDIO: Regular. RESP: CTA bilaterally. No wheezes, rales, or rhonchi. ABD: +BS, soft, non-tender, nondistended. EXT: Extremities without clubbing, cyanosis, or edema. NEURO: Awake and alert. Motor and sensory grossly within normal limits. Normal speech. Procedures 01/30/[address] Hayward A/P Problem List: (1) Generalized weakness ICD Codes: R53.1 - Weakness Status: Acute Plan: - Pt is a 51 y/o WM with hypertension, hyperlipidemia, hypothyroidism, diabetes , diabetic nephropathy, rheumatoid arthritis, bipolar disorder, and drug-induced Parkinson's disease. - [place] [facility] [place] with complaints of generalized weakness and fever that began this morning. Pt was seen here on 01/19/17 in the ED for generalized weakness and diarrhea and was given Flagyl for suspected C. diff as the pt had recently taken antibiotics for pneumonia but never took the Flagyl. Prior that that he was seen as an outpt by Dr. Velasco in mid December and pt complained then of diarrhea with fecal urgency (was wearing depends) and abd pain. He was sent for stool studies which were negative for C. diff, salmonella, or Campylobacter. - He was sent for a CT Abd/pelvis (01/06) --> 2 new focal areas of density in the lateral right lung, hepatic steatosis, thickening of the upper stomach, which could be post-surgical or secondary to lack of full distension, nonobstructing 4mm right renal stone, a few scattered colonic diverticula, mild splenomegaly, and post-operative change in the lumbar spine. - He then had a CT Thorax (01/20/17) --> which noted distinct interval change in worsening in the right lung with diffuse groundglass and solid interstitial small nodules as well as fluid in the major fissure, left lung is relatively clear actual free in bud changes have cleared. - He states that the diarrhea has subsided. He had one BM yesterday. - His main complaint is that of fever and generalized weakness and this morning was unable to get out of bed without assistance. - Pt was febrile in the ED with Tmax at 103F and hypoxic at 91% on RA so he was given Tylenol and placed on 2 L NC with improvement. - Repeat CT Thorax 01/27/17 reviewed and reveals: Persistent groundglass patchy dispersed areas of density in the right lung with improvement of the area consolidation in the right lung there is slightly worsening of patchy airspace disease ground glass dispersed in the superior segment of the left lower lobe - Pt was given Rocephin and Azithromycin in the ED - Of note, the pt has hx of infectious lung mass in 2015, biopsy was negative for malignancy - He also had aspiration pneumonia in 10/2016. Some of his medications may be causing increased sedation making him more at risk for aspiration. Consult psychiatry to review his medications. Evaluated by Dr. Ramírez recommends continuing current regiment of psych meds - Previous sputum culture in 10/2016 with MRSA. 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 - IVF DC'd - Duonebs - Supportive care - Pulmonary consultation, evaluated by Dr. Hayward . per Dr. Hayward once stabilized, would consider proceeding with bronchoscopic examination and obtaining approximately cultures and other studies. 01/[address] Tiwari with Dr. Hayward plan for bronchoscopy - S/P Bronchoscopy 01/[address] Hayward await results - stool positive for C diff, Flagyl PO started 01/29 - consult placed to ID, appreciate assistance- added vancomycin IV as patient has a history of MRSA. Also added Lactinex - DVT prophylaxis with Lovenox (2) Diarrhea ICD Codes: R19.7 - Diarrhea, unspecified Status: Resolved Plan: - Previous stool studies were negative - Pt feels that the diarrhea has improved - Pts last EGD/colonoscopy was 05/16/2016 --> nodular gastritis in the gastric antrum, gastric sleeve, and multiple polyps and hemorrhoids. - see above (3) Fever ICD Codes: R50.9 - Fever Status: Acute Plan: - See above. (4) Hypothyroid ICD Codes: E03.9 - Hypothyroidism, unspecified Status: Acute Plan: - Pt reported has been taking his home dose of Synthroid and Cytomel - TSH was 22.7 at admission and Free T4 is 5.0 (5) HTN (hypertension) ICD Codes: I10 - Essential (primary) hypertension Status: Chronic Plan: - Cont. home meds (6) Drug-induced Parkinson's disease ICD Codes: G21.19 - Other drug induced secondary parkinsonism Status: Chronic (7) Hyperlipidemia ICD Codes: E78.5 - Hyperlipidemia Status: Chronic Assessment and Plan Patient examined. Assessment and plan formulated with Teresa Saucedo PA-C. I agree with the above. continue vancomycin, zosyn, flagyl await bronchoscopy studies will d/w ID & pulmonary 02/02/17 Teresa Saucedo Jan 31, 2017 10:01 Camron Tiwari DO Jan 31, 2017 13:22
[2017-01-31] MEDS: ENOXAPARIN SODIUM 30 MG/0.3 ML SYRINGE SQ SCH (14:26)
[2017-01-31] MEDS ORDERED: GABAPENTIN 400 MG CAP PO SCH (18:00)
[2017-01-31] MEDS: GABAPENTIN 100 MG CAP PO SCH (18:10)
[2017-01-31] MEDS: DIVALPROEX SODIUM E.R. 500 MG TAB PO SCH (21:51)
[2017-01-31] MEDS: QUEtiapine FUMARATE 100 MG TAB PO SCH (21:58)
[2017-02-01] MEDS: metroNIDAZOLE 500 MG TAB PO SCH ×4 (00:08→17:17)
[2017-02-01 00:52] VITALS: BP 138/79; PULSE 70; RESP 20; TEMP 97.8; O2SAT 98
[2017-02-01] MEDS: PIPERACIL-TAZO 3.375 GM PREMIX 50 ML IV SCH ×4 (03:04→20:23)
[2017-02-01] MEDS ORDERED: PHARMACY ORDERED LAB ONE (04:45)
[2017-02-01] MEDS: LEVOTHYROXINE SODIUM 125 MCG TAB PO SCH (05:15)
[2017-02-01] MEDS: VANCOMYCIN INJ 2,000 MG in SODIUM CHLORID 0.9% 500 ML INJ 500 ML IV SCH ×2 (05:15→15:30)
[2017-02-01 08:00] VITALS: BP 141/79; PULSE 65; RESP 16; TEMP 96.3; O2SAT 96
[2017-02-01] MEDS: INSULIN ASPART SUPPLEMENTAL SCALE SQ SCH ×4 (08:00→21:10)
[2017-02-01] MEDS: FLUTICASONE 200 MCG/VILANTEROL 25 MCG INHALER INH SCH (09:00)
[2017-02-01] MEDS: PANTOPRAZOLE SOD 40 MG DELAYED RELEASE TAB PO SCH ×2 (09:08→20:23)
[2017-02-01] MEDS: LIOTHYRONINE SODIUM 5 MCG TAB PO SCH ×2 (09:08→20:22)
[2017-02-01] MEDS: METOPROLOL TARTRATE 100 MG TAB PO SCH ×2 (09:08→20:23)
[2017-02-01] MEDS: GABAPENTIN 100 MG CAP PO SCH ×3 (09:08→17:17)
[2017-02-01] MEDS: ASPIRIN EC 81 MG TABEC PO SCH (09:09)
[2017-02-01] MEDS: SPIRONOLACTONE 50 MG TAB PO SCH ×2 (09:09→20:23)
[2017-02-01] MEDS: MORPHINE SULFATE 15 MG CONTROLLED RELEASE TAB PO SCH ×2 (09:09→20:22)
[2017-02-01] MEDS: SODIUM CHLORIDE 0.9% FLUSH 10 ML FLUSH IV FLUSH SCH ×2 (09:09→20:23)
[2017-02-01 10:00] VITALS: O2SAT 95
[2017-02-01 12:00] VITALS: BP 157/91; PULSE 63; RESP 17; TEMP 97.4; O2SAT 95
--- NOTE | 2017-02-01 12:09 | HHI.PR ---
Subjective Remarks Patient feeling well today only 1 BM in the Last 24 hours denies SOB or cough. tolerating RA Objective Vitals Vital Signs Date Time Temp Pulse Resp B/P (MAP) Pulse Ox O2 Delivery O2 Flow Rate FiO2 02/01/17 10:00 95 02/01/17 08:00 96.3 65 16 141/79 (99) 96 02/01/17 00:52 97.8 70 20 138/79 (98) 98 01/31/17 20:29 96.8 65 20 163/89 (113) 98 01/31/17 18:33 Nasal Cannula 3.00 01/31/17 16:00 97.0 60 17 157/87 (110) 93 01/31/17 14:24 96 Result Diagram: 01/31/1782301/31/17823 Imaging Last Impressions Chest X-Ray 01/27/17 0000 Signed Impressions: Service Date/Time: Friday, January 27, 2017 09:16 - CONCLUSION: Hypoaerated lungs with minimal airspace disease in the right base. Otherwise stable evaluation compared to prior study 01/19 Jamison Castillo MD Objective Remarks GENERAL: This is an obese, well-developed patient, in no apparent distress. CARDIO: Regular. RESP: CTA bilaterally. No wheezes, rales, or rhonchi. ABD: +BS, soft, non-tender, nondistended. EXT: Extremities without clubbing, cyanosis, or edema. NEURO: Awake and alert. Motor and sensory grossly within normal limits. Normal speech. Procedures 01/30/[address] Hayward A/P Problem List: (1) Generalized weakness ICD Codes: R53.1 - Weakness Status: Acute Plan: - Pt is a 51 y/o WM with hypertension, hyperlipidemia, hypothyroidism, diabetes , diabetic nephropathy, rheumatoid arthritis, bipolar disorder, and drug-induced Parkinson's disease. - Pt presented to the ED at [facility] [place] on 01/27/17 with complaints of generalized weakness and fever that began this morning. Pt was seen here on 01/19/17 in the ED for generalized weakness and diarrhea and was given Flagyl for suspected C. diff as the pt had recently taken antibiotics for pneumonia but never took the Flagyl. Prior that that he was seen as an outpt by Dr. Velasco in mid December and pt complained then of diarrhea with fecal urgency (was wearing depends) and abd pain. He was sent for stool studies which were negative for C. diff, salmonella, or Campylobacter. - He was sent for a CT Abd/pelvis (01/06) --> 2 new focal areas of density in the lateral right lung, hepatic steatosis, thickening of the upper stomach, which could be post-surgical or secondary to lack of full distension, nonobstructing 4mm right renal stone, a few scattered colonic diverticula, mild splenomegaly, and post-operative change in the lumbar spine. - He then had a CT Thorax (01/20/17) --> which noted distinct interval change in worsening in the right lung with diffuse groundglass and solid interstitial small nodules as well as fluid in the major fissure, left lung is relatively clear actual free in bud changes have cleared. - He states that the diarrhea has subsided. He had one BM yesterday. - His main complaint is that of fever and generalized weakness and this morning was unable to get out of bed without assistance. - Pt was febrile in the ED with Tmax at 103F and hypoxic at 91% on RA so he was given Tylenol and placed on 2 L NC with improvement. - Repeat CT Thorax 01/27/17 reviewed and reveals: Persistent groundglass patchy dispersed areas of density in the right lung with improvement of the area consolidation in the right lung there is slightly worsening of patchy airspace disease ground glass dispersed in the superior segment of the left lower lobe - Pt was given Rocephin and Azithromycin in the ED - Of note, the pt has hx of infectious lung mass in 2016, biopsy was negative for malignancy - He also had aspiration pneumonia in 10/2016. Some of his medications may be causing increased sedation making him more at risk for aspiration. Consult psychiatry to review his medications. Evaluated by Dr. Ramírez recommends continuing current regiment of psych meds - Previous sputum culture in 10/2016 with MRSA. 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 - IVF DC'd - Duonebs - Supportive care - Pulmonary consultation, evaluated by Dr. Hayward . per Dr. Hayward once stabilized, would consider proceeding with bronchoscopic examination and obtaining approximately cultures and other studies. 01/[address] Tiwari with Dr. Hayward plan for bronchoscopy - S/P Bronchoscopy 01/[address] Hayward await results - stool positive for C diff, Flagyl PO started 01/29 - consult placed to ID, appreciate assistance- added vancomycin IV as patient has a history of MRSA. Also added Lactinex - plan to discuss with ID and pulmonology on Thursday, possible DC Thursday if cleared by ID and Pulmonology - DVT prophylaxis with Lovenox (2) Diarrhea ICD Codes: R19.7 - Diarrhea, unspecified Status: Resolved Plan: - Previous stool studies were negative - Pt feels that the diarrhea has improved - Pts last EGD/colonoscopy was 05/16/2016 --> nodular gastritis in the gastric antrum, gastric sleeve, and multiple polyps and hemorrhoids. - see above (3) Fever ICD Codes: R50.9 - Fever Status: Acute Plan: - See above. (4) Hypothyroid ICD Codes: E03.9 - Hypothyroidism, unspecified Status: Acute Plan: - Pt reported has been taking his home dose of Synthroid and Cytomel - TSH was 22.7 at admission and Free T4 is 5.0 (5) HTN (hypertension) ICD Codes: I10 - Essential (primary) hypertension Status: Chronic Plan: - Cont. home meds (6) Drug-induced Parkinson's disease ICD Codes: G21.19 - Other drug induced secondary parkinsonism Status: Chronic (7) Hyperlipidemia ICD Codes: E78.5 - Hyperlipidemia Status: Chronic Assessment and Plan Patient examined. Assessment and plan formulated with Teresa Saucedo PA-C. I agree with the above. Will d/w ID and Pulm Med 02/02/17 Anticipate discharge to home in next 1-2 days Teresa Saucedo Feb 01, 2017 12:09 Camron Tiwari DO Feb 04, 2017 11:15
[2017-02-01] MEDS: ENOXAPARIN SODIUM 30 MG/0.3 ML SYRINGE SQ SCH (12:17)
[2017-02-01 16:00] VITALS: BP 143/79; PULSE 64; RESP 17; TEMP 98.1; O2SAT 93
[2017-02-01 20:00] VITALS: BP 142/77; PULSE 76; RESP 20; TEMP 97.3; O2SAT 96
[2017-02-01] MEDS: DIVALPROEX SODIUM E.R. 500 MG TAB PO SCH (20:21)
[2017-02-01] MEDS: QUEtiapine FUMARATE 100 MG TAB PO SCH (20:22)
[2017-02-01] MEDS: LURASIDONE 40 MG TAB PO SCH (20:22)
[2017-02-02] VITALS: BP 163/97; PULSE 69; RESP 18; TEMP 97.8; O2SAT 93
[2017-02-02] MEDS ORDERED: cloNIDine HCL 0.2 MG TAB PO PRN (00:45)
[2017-02-02] MEDS: metroNIDAZOLE 500 MG TAB PO SCH ×3 (00:58→11:33)
[2017-02-02 02:30] VITALS: BP 155/87
[2017-02-02] MEDS: PIPERACIL-TAZO 3.375 GM PREMIX 50 ML IV SCH ×2 (03:26→07:58)
[2017-02-02] MEDS: LEVOTHYROXINE SODIUM 125 MCG TAB PO SCH (04:35)
[2017-02-02] MEDS: VANCOMYCIN INJ 2,000 MG in SODIUM CHLORID 0.9% 500 ML INJ 500 ML IV SCH (04:35)
[2017-02-02 07:56] VITALS: O2SAT 97
[2017-02-02] MEDS: PANTOPRAZOLE SOD 40 MG DELAYED RELEASE TAB PO SCH (07:59)
[2017-02-02] MEDS: METOPROLOL TARTRATE 100 MG TAB PO SCH (07:59)
[2017-02-02 08:00] VITALS: BP 182/94; PULSE 64; RESP 19; TEMP 95.8; O2SAT 95
[2017-02-02] MEDS: LIOTHYRONINE SODIUM 5 MCG TAB PO SCH (08:00)
[2017-02-02] MEDS: SPIRONOLACTONE 50 MG TAB PO SCH (08:00)
[2017-02-02] MEDS: GABAPENTIN 100 MG CAP PO SCH (08:01)
[2017-02-02] MEDS: ASPIRIN EC 81 MG TABEC PO SCH (08:01)
[2017-02-02] MEDS: MORPHINE SULFATE 15 MG CONTROLLED RELEASE TAB PO SCH (08:01)
--- NOTE | 2017-02-02 08:29 | HHI.PR ---
Subjective Remarks Patient resting in bed reports feeling well, only one formed BM in the past 24 hours, denies shortness of breath Objective Vitals Vital Signs Date Time Temp Pulse Resp B/P (MAP) Pulse Ox O2 Delivery O2 Flow Rate FiO2 02/02/17 08:00 95.8 64 19 182/94 (123) 95 02/02/17 07:56 97 02/02/17 02:30 155/87 (109) 02/02/17 00:00 97.8 69 18 163/97 (119) 93 02/01/17 21:22 20 02/01/17 20:00 97.3 76 20 142/77 (98) 96 02/01/17 16:00 98.1 64 17 143/79 (100) 93 02/01/17 12:00 97.4 63 17 157/91 (113) 95 02/01/17 10:00 95 Result Diagram: 01/31/17 0824 01/31/17 0824 Other Results Laboratory Tests Test 01/31/17 08:24 02/01/17 05:00 White Blood Count 5.2 TH/MM3 Red Blood Count 3.84 MIL/MM3 Hemoglobin 11.7 GM/DL Hematocrit 34.7 % Mean Corpuscular Volume 90.2 FL Mean Corpuscular Hemoglobin 30.4 PG Mean Corpuscular Hemoglobin Concent 33.7 % Red Cell Distribution Width 15.6 % Platelet Count 126 TH/MM3 Mean Platelet Volume 7.9 FL Neutrophils (%) (Auto) 59.2 % Lymphocytes (%) (Auto) 24.4 % Monocytes (%) (Auto) 11.8 % Eosinophils (%) (Auto) 3.8 % Basophils (%) (Auto) 0.8 % Neutrophils # (Auto) 3.1 TH/MM3 Lymphocytes # (Auto) 1.3 TH/MM3 Monocytes # (Auto) 0.6 TH/MM3 Eosinophils # (Auto) 0.2 TH/MM3 Basophils # (Auto) 0.0 TH/MM3 CBC Comment DIFF FINAL Differential Comment Blood Urea Nitrogen 5 MG/DL Creatinine 1.00 MG/DL Random Glucose 146 MG/DL Calcium Level 8.7 MG/DL Magnesium Level 1.6 MG/DL Sodium Level 139 MEQ/L Potassium Level 3.7 MEQ/L Chloride Level 104 MEQ/L Carbon Dioxide Level 28.3 MEQ/L Anion Gap 7 MEQ/L Estimat Glomerular Filtration Rate 79 ML/MIN Vancomycin Level Trough 15.7 MCG/ML Imaging Last Impressions Chest X-Ray 01/27/17 0000 Signed Impressions: Service Date/Time: Friday, January 27, 2017 09:16 - CONCLUSION: Hypoaerated lungs with minimal airspace disease in the right base. Otherwise stable evaluation compared to prior study 01/19 Jamison Castillo MD Objective Remarks GENERAL: This is an obese, well-developed patient, in no apparent distress. CARDIO: Regular. RESP: CTA bilaterally. ABD: +BS, soft, non-tender, nondistended. EXT: Extremities without clubbing, cyanosis, or edema. NEURO: Awake and alert. Motor and sensory grossly within normal limits. Normal speech. Procedures 01/30/[address] Hayward A/P Problem List: (1) Generalized weakness ICD Codes: R53.1 - Weakness Status: Acute Plan: - Pt is a 51 y/o WM with hypertension, hyperlipidemia, hypothyroidism, diabetes , diabetic nephropathy, rheumatoid arthritis, bipolar disorder, and drug-induced Parkinson's disease. - Pt presented to the ED at [facility] [place] on 01/27/17 with complaints of generalized weakness and fever that began this morning. Pt was seen here on 01/19/17 in the ED for generalized weakness and diarrhea and was given Flagyl for suspected C. diff as the pt had recently taken antibiotics for pneumonia but never took the Flagyl. Prior that that he was seen as an outpt by Dr. Velasco in mid December and pt complained then of diarrhea with fecal urgency (was wearing depends) and abd pain. He was sent for stool studies which were negative for C. diff, salmonella, or Campylobacter. - He was sent for a CT Abd/pelvis (01/06) --> 2 new focal areas of density in the lateral right lung, hepatic steatosis, thickening of the upper stomach, which could be post-surgical or secondary to lack of full distension, nonobstructing 4mm right renal stone, a few scattered colonic diverticula, mild splenomegaly, and post-operative change in the lumbar spine. - He then had a CT Thorax (01/20/17) --> which noted distinct interval change in worsening in the right lung with diffuse groundglass and solid interstitial small nodules as well as fluid in the major fissure, left lung is relatively clear actual free in bud changes have cleared. - He states that the diarrhea has subsided. He had one BM yesterday. - His main complaint is that of fever and generalized weakness and this morning was unable to get out of bed without assistance. - Pt was febrile in the ED with Tmax at 103F and hypoxic at 91% on RA so he was given Tylenol and placed on 2 L NC with improvement. - Repeat CT Thorax 01/27/17 reviewed and reveals: Persistent groundglass patchy dispersed areas of density in the right lung with improvement of the area consolidation in the right lung there is slightly worsening of patchy airspace disease ground glass dispersed in the superior segment of the left lower lobe - Pt was given Rocephin and Azithromycin in the ED - Of note, the pt has hx of infectious lung mass in 2015, biopsy was negative for malignancy - He also had aspiration pneumonia in 10/2016. Some of his medications may be causing increased sedation making him more at risk for aspiration. Consult psychiatry to review his medications. Evaluated by Dr. Ramírez recommends continuing current regiment of psych meds - Previous sputum culture in 10/2016 with MRSA. 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 - IVF DC'd - Duonebs - Supportive care - Pulmonary consultation, evaluated by Dr. Hayward . per Dr. Hayward once stabilized, would consider proceeding with bronchoscopic examination and obtaining approximately cultures and other studies. 01/[address] Tiwari with Dr. Hayward plan for bronchoscopy - S/P Bronchoscopy 01/[address] Hayward await results - stool positive for C diff, Flagyl PO started 01/29 - consult placed to ID, appreciate assistance- added vancomycin IV as patient has a history of MRSA. Also added Lactinex - plan to discuss with ID, possible DC Today if cleared by ID - DVT prophylaxis with Lovenox (2) Diarrhea ICD Codes: R19.7 - Diarrhea, unspecified Status: Resolved Plan: - Previous stool studies were negative - Pt feels that the diarrhea has improved - Pts last EGD/colonoscopy was 05/16/2016 --> nodular gastritis in the gastric antrum, gastric sleeve, and multiple polyps and hemorrhoids. - see above (3) Fever ICD Codes: R50.9 - Fever Status: Acute Plan: - See above. (4) Hypothyroid ICD Codes: E03.9 - Hypothyroidism, unspecified Status: Acute Plan: - Pt reported has been taking his home dose of Synthroid and Cytomel - TSH was 22.7 at admission and Free T4 is 5.0 (5) HTN (hypertension) ICD Codes: I10 - Essential (primary) hypertension Status: Chronic Plan: - Cont. home meds (6) Drug-induced Parkinson's disease ICD Codes: G21.19 - Other drug induced secondary parkinsonism Status: Chronic (7) Hyperlipidemia ICD Codes: E78.5 - Hyperlipidemia Status: Chronic Teresa Saucedo Feb 02, 2017 08:29
[2017-02-02] MEDS: SODIUM CHLORIDE 0.9% FLUSH 10 ML FLUSH IV FLUSH SCH (09:00)
[2017-02-02] MEDS: FLUTICASONE 200 MCG/VILANTEROL 25 MCG INHALER INH SCH (09:00)
[2017-02-02] MEDS: INSULIN ASPART SUPPLEMENTAL SCALE SQ SCH (09:06)
[2017-02-02] MEDS ORDERED: DOXYCYCLINE HYCLATE 100 MG TAB PO SCH (10:30)
[2017-02-02] MEDS ORDERED: DOXY100T PO (10:31)
[2017-02-02] MEDS ORDERED: GABA100C4 PO (10:31)
[2017-02-02] MEDS ORDERED: METR-1 PO (10:31)
--- NOTE | 2017-02-02 10:41 | HHI.DS ---
Discharge Summary Admission Date Jan 27, 2017 at 12:04 Discharge Date: Feb 02, 2017 Admitting Diagnosis Sepsis secondary to pneumonia (1) Generalized weakness ICD Codes: R53.1 - Weakness Status: Acute (2) Diarrhea ICD Codes: R19.7 - Diarrhea, unspecified Status: Resolved (3) Fever ICD Codes: R50.9 - Fever Status: Acute (4) Hypothyroid ICD Codes: E03.9 - Hypothyroidism, unspecified Status: Acute (5) HTN (hypertension) ICD Codes: I10 - Essential (primary) hypertension Status: Chronic (6) Drug-induced Parkinson's disease ICD Codes: G21.19 - Other drug induced secondary parkinsonism Status: Chronic (7) Hyperlipidemia ICD Codes: E78.5 - Hyperlipidemia Status: Chronic Consultants Dr. Darrell Ro Procedures 01/30/[address] Hayward Brief History Mr. Zavala is a 51 y/o WM with hypertension, hyperlipidemia, hypothyroidism, diabetes, diabetic nephropathy, rheumatoid arthritis, bipolar disorder, and drug -induced Parkinson's disease. Pt presented [place] [facility] [place] with complaints of generalized weakness and fever that began this morning. Pt was seen here on 01/19/17 in the ED for generalized weakness and diarrhea and was given Flagyl for suspected C. diff as the pt had recently taken antibiotics for pneumonia but did not take the Flagyl. Pt was seen as an outpt by Dr. Velasco in mid December and pt complained then of diarrhea, fecal urgency (was wearing depends), and abd pain. He was sent for stool studies which were negative for C. diff, salmonella, or Campylobacter. He was sent for a CT Abd/pelvis which was performed on 01/06/17 which noted 2 new focal areas of density in the lateral right lung, hepatic steatosis, thickening of the upper stomach, which could be post-surgical or secondary to lack of full distension, nonobstructing 4mm right renal stone, a few scattered colonic diverticula, mild splenomegaly, and post-operative change in the lumbar spine. He then had a CT Thorax on which noted distinct interval change in worsening in the right lung with diffuse groundglass and solid interstitial small nodules as well as fluid in the major fissure, left lung is relatively clear actual free in bud changes have cleared. He states that the diarrhea has subsided. He had one BM yesterday. His main complaint is that of fever and generalized weakness. Denies any headache, cough, chest pain, sob, n/v, abdominal pain, focal weakness or numbness. Pt was febrile in the ED with Tmax at 103F and hypoxic at 91% on RA so he was given Tylenol and placed on 2 L NC with improvement. Patient denies any recent travel or sick contacts. Patient states that he was quite weak this morning and unable to get out of bed without assistance. CBC/BMP: 01/31/1724 01/31/17823 Significant Findings Laboratory Tests Test 01/31/17 08:24 02/01/17 05:00 Red Blood Count 3.84 MIL/MM3 (4.50-5.90) Hemoglobin 11.7 GM/DL (13.0-17.0) Hematocrit 34.7 % (39.0-51.0) Platelet Count 126 TH/MM3 (150-450) Monocytes (%) (Auto) 11.8 % (0.0-8.0) Blood Urea Nitrogen 5 MG/DL (7-18) Random Glucose 146 MG/DL (74-106) Estimat Glomerular Filtration Rate 79 ML/MIN (>89) Vancomycin Level Trough 15.7 MCG/ML (5.0-10.0) Imaging Laboratory Tests Test 01/31/17 08:24 02/01/17 05:00 White Blood Count 5.2 TH/MM3 Red Blood Count 3.84 MIL/MM3 Hemoglobin 11.7 GM/DL Hematocrit 34.7 % Mean Corpuscular Volume 90.2 FL Mean Corpuscular Hemoglobin 30.4 PG Mean Corpuscular Hemoglobin Concent 33.7 % Red Cell Distribution Width 15.6 % Platelet Count 126 TH/MM3 Mean Platelet Volume 7.9 FL Neutrophils (%) (Auto) 59.2 % Lymphocytes (%) (Auto) 24.4 % Monocytes (%) (Auto) 11.8 % Eosinophils (%) (Auto) 3.8 % Basophils (%) (Auto) 0.8 % Neutrophils # (Auto) 3.1 TH/MM3 Lymphocytes # (Auto) 1.3 TH/MM3 Monocytes # (Auto) 0.6 TH/MM3 Eosinophils # (Auto) 0.2 TH/MM3 Basophils # (Auto) 0.0 TH/MM3 CBC Comment DIFF FINAL Differential Comment Blood Urea Nitrogen 5 MG/DL Creatinine 1.00 MG/DL Random Glucose 146 MG/DL Calcium Level 8.7 MG/DL Magnesium Level 1.6 MG/DL Sodium Level 139 MEQ/L Potassium Level 3.7 MEQ/L Chloride Level 104 MEQ/L Carbon Dioxide Level 28.3 MEQ/L Anion Gap 7 MEQ/L Estimat Glomerular Filtration Rate 79 ML/MIN Vancomycin Level Trough 15.7 MCG/ML PE at Discharge GENERAL: This is an obese, well-developed patient, in no apparent distress. CARDIO: Regular. RESP: CTA bilaterally. ABD: +BS, soft, non-tender, nondistended. EXT: Extremities without clubbing, cyanosis, or edema. NEURO: Awake and alert. Motor and sensory grossly within normal limits. Normal speech. Hospital Course Generalized weakness - Pt is a 51 y/o WM with hypertension, hyperlipidemia, hypothyroidism, diabetes , diabetic nephropathy, rheumatoid arthritis, bipolar disorder, and drug-induced Parkinson's disease. - Pt presented to the ED at [facility] [place] on 01/27/17 with complaints of generalized weakness and fever that began this morning. Pt was seen here on 01/19/17 in the ED for generalized weakness and diarrhea and was given Flagyl for suspected C. diff as the pt had recently taken antibiotics for pneumonia but never took the Flagyl. Prior that that he was seen as an outpt by Dr. Velasco in mid December and pt complained then of diarrhea with fecal urgency (was wearing depends) and abd pain. He was sent for stool studies which were negative for C. diff, salmonella, or Campylobacter. - He was sent for a CT Abd/pelvis (01/06) --> 2 new focal areas of density in the lateral right lung, hepatic steatosis, thickening of the upper stomach, which could be post-surgical or secondary to lack of full distension, nonobstructing 4mm right renal stone, a few scattered colonic diverticula, mild splenomegaly, and post-operative change in the lumbar spine. - He then had a CT Thorax (01/20/17) --> which noted distinct interval change in worsening in the right lung with diffuse groundglass and solid interstitial small nodules as well as fluid in the major fissure, left lung is relatively clear actual free in bud changes have cleared. - He states that the diarrhea has subsided. He had one BM yesterday. - His main complaint is that of fever and generalized weakness and this morning was unable to get out of bed without assistance. - Pt was febrile in the ED with Tmax at 103F and hypoxic at 91% on RA so he was given Tylenol and placed on 2 L NC with improvement. - Repeat CT Thorax 01/27/17 reviewed and reveals: Persistent groundglass patchy dispersed areas of density in the right lung with improvement of the area consolidation in the right lung there is slightly worsening of patchy airspace disease ground glass dispersed in the superior segment of the left lower lobe - Pt was given Rocephin and Azithromycin in the ED - Of note, the pt has hx of infectious lung mass in 2015, biopsy was negative for malignancy - He also had aspiration pneumonia in 10/2016. Some of his medications may be causing increased sedation making him more at risk for aspiration. Consult psychiatry to review his medications. Evaluated by Dr. Ramírez recommends continuing current regiment of psych meds - Previous sputum culture in 10/2016 with MRSA. 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 - IVF DC'd - Duonebs - Supportive care - Pulmonary consultation, evaluated by Dr. Hayward . per Dr. Hayward once stabilized, would consider proceeding with bronchoscopic examination and obtaining approximately cultures and other studies. 01/[address] Tiwari with Dr. Hayward plan for bronchoscopy - S/P Bronchoscopy 01/[address] Hayward await results - stool positive for C diff, Flagyl PO started 01/29 - consult placed to ID, appreciate assistance- added vancomycin IV as patient has a history of MRSA. Also added Lactinex - plan to discuss with ID, possible DC Today if cleared by ID - DVT prophylaxis with Lovenox Diarrhea - Previous stool studies were negative - Pt feels that the diarrhea has improved - Pts last EGD/colonoscopy was 05/16/2016 --> nodular gastritis in the gastric antrum, gastric sleeve, and multiple polyps and hemorrhoids. - see above Fever - See above. Hypothyroid - Pt reported has been taking his home dose of Synthroid and Cytomel - TSH was 22.7 at admission and Free T4 is 5.0 - follow up with PCP HTN (hypertension) - Cont. home meds Drug-induced Parkinson's disease Chronic Hyperlipidemia Chronic Pt Condition on Discharge: Stable Discharge Disposition: Discharge Home Discharge Instructions DIET: Follow Instructions for: As Tolerated, No Restrictions Activities you can perform: Regular-No Restrictions Follow up Referrals: PCP Follow-up - [address] Velasco Pulmonology - 2 Weeks with Yesy Hayward MD New Medications: Doxycycline Hyclate (Doxycycline Hyclate) 100 Mg Tab 100 MG PO Q12HR for antibiotic, #15 TAB 0 Refills Gabapentin (Gabapentin) 100 Mg Cap 200 MG PO TID for peripheral neuropathy, #90 CAP 0 Refills Continued Medications: Albuterol 18 GM Inh (Ventolin Hfa 18 GM Inh) 90 Mcg/Act Aer 2 PUFF INH Q4H PRN for SHORTNESS OF BREATH, #1 INHALER [address] (Aspirin EC) 81 Mg Tabdr 81 MG PO DAILY for neuro changes, #31 TAB Calcium Carbonate (Chewable Calcium) 500 Mg Chw 500 MG PO BID Cholecalciferol (Vitamin D3) 50,000 Unit Cap 76206 UNITS PO 2XWEEK for Nutritional Supplement, #1 BOTTLE 0 Refills Divalproex ER (Depakote ER) 500 Mg Khanh 2500 MG PO HS for Control Seizures, #30 TAB 0 Refills Fluticasone-Vilanterol Inh (Breo Ellipta Inh) 200-25 Mcg/Act Inh 1 PUFF INH DAILY, #1 INHALER 0 Refills Use daily at the same time. Insulin Regular (Human) Concentrate Inj (Humulin R U-500 (Concentrate) Inj) 10, 000 Unit/20 Ml Vial for Blood Sugar Management, VIAL 0 Refills VIA INSULIN PUMP Levothyroxine (Levothyroxine) 125 Mcg Tab 250 MCG PO DAILY for Thyroid, #30 TAB 0 Refills Liothyronine Sodium (Cytomel) 5 Mcg Tablet 10 MCG PO BID Lurasidone (Latuda) 40 Mg Tab 40 MG PO DAILY, #30 TAB 0 Refills Meloxicam (Mobic) 15 Mg Tab 15 MG PO DAILY for Arthritis pain, TAB 0 Refills Take with food Metoprolol Tartrate (Metoprolol Tartrate) 100 Mg Tab 200 MG PO BID, #120 TAB 0 Refills Metronidazole (Flagyl) 500 Mg Tab 500 MG PO TID for Infection for 33 Days, #32 TAB 0 Refills (This prescription has been renewed) Morphine ER (Morphine ER) 15 Mg Tab 15 MG PO BID for Pain Management, #14 TAB 0 Refills Pantoprazole (Pantoprazole) 40 Mg Tab 40 MG PO BID NEB for Reflux, #62 TAB 0 Refills Quetiapine (Seroquel) 25 Mg Tab 125 MG PO HS, #60 TAB 0 Refills Simethicone (Gas Relief Maximum Streng) 125 Mg Chw 125 MG PO Q8HR for gas for 30 Days, EA Spironolactone (Spironolactone) 50 Mg Tab 100 MG PO BID, #60 TAB 0 Refills Sumatriptan (Imitrex) 100 Mg Tab 100 MG PO ONCE PRN for MIGRAINE, TAB 0 Refills If a satisfactory response has not been obtained at 2 hours, a second dose may be administered Discontinued Medications: Clindamycin (Cleocin) 150 Mg Cap 300 MG PO Q8HR for aspiration pna for 7 Days, CAP Dextromethorphan-Guaifenesin (Dextromethorphan/Guaifene 10-100 mg/5Ml) 1 Syp Syp 5 ML PO Q6H PRN for COUGH for 10 Days, ML Gabapentin (Gabapentin) 400 Mg Cap 800 CAP PO TID, #30 CAP 0 Refills Loperamide HCl (Hm Loperamide HCl) 2 Mg Cap 2 MG PO Q4H PRN for DIARRHEA for 5 Days, CAP Teresa Saucedo Feb 02, 2017 10:41 Anthony Glover MD Feb 02, 2017 10:55
--- NOTE | 2017-02-02 10:42 | HHI.DCPOC ---
Discharge Care Plan Diagnosis: (1) C. difficile colitis (2) Pneumonia (3) Generalized weakness Goals to Promote Your Health * To prevent worsening of your condition and complications * To maintain your health at the optimal level Directions to Meet Your Goals Take your medications as prescribed Follow your dietary instruction Follow activity as directed Keep your appointments as scheduled Take your immunizations and boosters as scheduled If your symptoms worsen call your PCP, if no PCP go to Urgent Care Center or Emergency Room Smoking is Dangerous to Your Health. Avoid second hand smoke Call the 24-hour hour crisis hotline for domestic abuse at Teresa Saucedo Feb 02, 2017 10:42
== END 2017-02-02 13:15 | disposition home or self-care (01) | DRG 871 ==
LOC: NEPE 08:50 → NEDA 12:04 → N07A 15:10
PROVIDERS: ADMIT Hospitalist; ATTEND Hospitalist
PROC: 0B918ZZ Drainage of Trachea, Via Natural or Artificial Opening Endoscopic (ICD-10-PCS; 2017-01-30)
PROC: 0BC18ZZ Extirpation of Matter from Trachea, Via Natural or Artificial Opening Endoscopic (ICD-10-PCS; 2017-01-30)
PROC: 0BC38ZZ Extirpation of Matter from Right Main Bronchus, Via Natural or Artificial Opening Endoscopic (ICD-10-PCS; 2017-01-30)
PROC: 0B978ZZ Drainage of Left Main Bronchus, Via Natural or Artificial Opening Endoscopic (ICD-10-PCS; 2017-01-30)
PROC: 0B938ZZ Drainage of Right Main Bronchus, Via Natural or Artificial Opening Endoscopic (ICD-10-PCS; 2017-01-30)
PROC: 0BDJ8ZX Extraction of Left Lower Lung Lobe, Via Natural or Artificial Opening Endoscopic, Diagnostic (ICD-10-PCS; 2017-01-30)
PROC: 0BC78ZZ Extirpation of Matter from Left Main Bronchus, Via Natural or Artificial Opening Endoscopic (ICD-10-PCS; principal; 2017-01-30 07:55)
DX: A41.9 Sepsis, unspecified organism (principal); J18.9 Pneumonia, unspecified organism; A04.72 Enterocolitis due to Clostridium difficile, not specified as recurrent; G21.19 Other drug induced secondary parkinsonism; E11.22 Type 2 diabetes mellitus with diabetic chronic kidney disease; E86.0 Dehydration; F31.60 Bipolar disorder, current episode mixed, unspecified; K50.90 Crohn's disease, unspecified, without complications; Z96.41 Presence of insulin pump (external) (internal); M06.9 Rheumatoid arthritis, unspecified; J45.909 Unspecified asthma, uncomplicated; K21.9 Gastro-esophageal reflux disease without esophagitis; E89.0 Postprocedural hypothyroidism; G47.30 Sleep apnea, unspecified; N18.1 Chronic kidney disease, stage 1; F41.1 Generalized anxiety disorder; E11.40 Type 2 diabetes mellitus with diabetic neuropathy, unspecified; E66.9 Obesity, unspecified; E78.1 Pure hyperglyceridemia; G89.29 Other chronic pain; M54.9 Dorsalgia, unspecified; J40 Bronchitis, not specified as acute or chronic; J98.09 Other diseases of bronchus, not elsewhere classified; I12.9 Hypertensive chronic kidney disease with stage 1 through stage 4 chronic kidney disease, or unspecified chronic kidney disease; R09.02 Hypoxemia; F10.11 Alcohol abuse, in remission; R53.1 Weakness; Z85.850 Personal history of malignant neoplasm of thyroid; Z98.84 Bariatric surgery status; Z92.3 Personal history of irradiation; Z79.4 Long term (current) use of insulin; Z87.01 Personal history of pneumonia (recurrent); Z86.14 Personal history of Methicillin resistant Staphylococcus aureus infection
CPT/HCPCS: 71010; 71020; 71250; 80048; 80164; 80202; 80307; 81001; 82140; 82948; 83605; 83735; 84436; 84443; 84484; 85025; 85610; 85730; 87015; 87040; 87070; 87071; 87102; 87116; 87205; 87206; 87328; 87329; 87493; 87804; 93005; 96361; 96365; J0171; J0696; J1650; J1815; J2250; J2543; J2765; J3370; J3480; J7030; J7040; J7120

== ENCOUNTER 2017-05-25 19:33 | Emergency (ER) | payer OTHER ==
[~2017-05-25 19:33] MED LIST changes: -ASPI81TA11 PO; +ASPI81TA23 PO; -CALC1CHW46 PO; +CALC500C14 PO; -CLIN150 PO; -CYTO5TAB3 PO; -DEXT10SY2 PO; +DOXY100T PO; +GABA100C4 PO; -GABA400C5 PO; +LIOT5 PO; -LOPE2CAP92 PO
[2017-05-25 19:59] VITALS: BP 150/96; PULSE 108; RESP 20; TEMP 99.4; O2SAT 96
[2017-05-25] MEDS ORDERED: SULFAMETHOXAZOLE-TRIMETHOPRIM DS 800-160 MG TAB PO ONE (22:00)
[2017-05-25] MEDS ORDERED: CLINDAMYCIN 150 MG CAP PO ONE (22:00)
[2017-05-25] MEDS ORDERED: BACT800T5 PO (22:07)
[2017-05-25] MEDS ORDERED: CLIN150C14 PO (22:07)
--- NOTE | 2017-05-25 22:07 | PD ---
HPI Chief Complaint: Skin Problem Time Seen by Provider: 21:40 Travel History International Travel<30 days: No Contact w/Intl Traveler<30days: No Traveled to known affect area: No History of Present Illness HPI 51-year-old male complains of redness swelling and blister the left foot. Patient has history of diabetes with diabetic neuropathy. Patient has history of MRSA in the past. Patient denies any fever chills. Patient noticed the redness swelling the blister on the left foot today. Patient noticed some bleeding from the blister also. Patient's not up-to-date with TD booster. PFSH Past Medical History Arthritis: Yes (RHEUMATOID ) Asthma: Yes Autoimmune Disease: No Blood Disorders: No Bipolar Disorder: Yes Anxiety: Yes Depression: Yes Heart Rhythm Problems: No Cancer: Yes (THYROID) Cardiac Catheterization: Yes (2006) Cardiovascular Problems: Yes High Cholesterol: Yes Chemotherapy: No Chest Pain: No Congestive Heart Failure: No COPD: No Cerebrovascular Accident: Yes (TIA) Diabetes: Yes Patient Takes Glucophage: No Diminished Hearing: No Endocrine: Yes (HYPOALDOSTORISM, THYROIDECTOMY) Gastrointestinal Disorders: Yes (GERD, GASTRIC SLEEVE) GERD: Yes Genitourinary: No Headaches: No Hepatitis: No Hiatal Hernia: No Hypertension: Yes Immune Disorder: No Implanted Vascular Access Dvce: Yes Musculoskeletal: Yes (LUMBAR FUSION/ NERVE STIM) Neurologic: Yes Psychiatric: Yes (CLAUSTROPHOBIC) Reproductive: No Respiratory: Yes Immunizations Current: Yes Migraines: No Myocardial Infarction: No Pneumonia: Yes Radiation Therapy: Yes Renal Failure: No Seizures: No Sleep Apnea: Yes (USES CPAP) Thyroid Disease: Yes Ulcer: No Tetanus Vaccination: < 5 Years Influenza Vaccination: Yes Past Surgical History Abdominal Surgery: Yes AICD: No Arteriovenous Shunt: No Body Medical Devices: LOWER BACK TITANIUM SCREWS AND RODS, SPINAL CORD STIMULATOR Cardiac Surgery: No Cholecystectomy: Yes Ear Surgery: No Endocrine Surgery: Yes (THYROIDECTOMY) Eye Surgery: No Genitourinary Surgery: Yes (2000 VASECTOMY) Gynecologic Surgery: Yes Insulin Pump: Yes Joint Replacement: No Neurologic Surgery: Yes (LUMBAR FUSION, SPINAL STIMULATOR IMPL.) Oral Surgery: No Pacemaker: No Thoracic Surgery: No Other Surgery: Yes (EX. SCAR FOOT, ARTHROSCOPY RIGHT KNEE, NEUROSTEM STENT IN AND REMOVED,) Social History Alcohol Use: Yes (occassionally ) Tobacco Use: No Substance Use: No Allergies-Medications (Allergen,Severity, Reaction): Coded Allergies: cholestyramine (Verified Allergy, Mild, NAUSEA, 05/25/17) diltiazem (Verified Allergy, Mild, Edema, 05/25/17) enalaprilat (Verified Allergy, Mild, Cough, 05/25/17) isradipine (Verified Allergy, Mild, Edema, 05/25/17) nicardipine (Verified Allergy, Mild, Edema, 05/25/17) nifedipine (Verified Allergy, Mild, Edema, 05/25/17) nimodipine (Verified Allergy, Mild, Edema, 05/25/17) verapamil (Verified Allergy, Mild, Edema, 05/25/17) amlodipine (Verified Allergy, Unknown, enlarged liver, 05/25/17) atorvastatin (Verified Allergy, Unknown, enlarged liver, 05/25/17) pravastatin (Verified Allergy, Unknown, enlarged liver, 05/25/17) simvastatin (Verified Allergy, Unknown, enlarged liver, 05/25/17) *MDRO Multi-Drug Resistant Organism (Verified Adverse Reaction, Unknown, ) MRSA (sputum) 10/27/16 Reported Meds & Prescriptions Reported Meds & Active Scripts Active Gabapentin 100 Mg Cap 200 Mg PO TID Morphine ER (Morphine Sulfate) 15 Mg Tab 15 Mg PO BID Pantoprazole (Pantoprazole Sodium) 40 Mg Tab 40 Mg PO BID NEB Aspirin EC (Aspirin) 81 Mg Tabdr 81 Mg PO DAILY Reported Cytomel (Liothyronine Sodium) 5 Mcg Tablet 10 Mcg PO BID Vitamin D3 (Cholecalciferol) 50,000 Unit Cap 50,000 Units PO 2XWEEK Mobic (Meloxicam) 15 Mg Tab 15 Mg PO DAILY Take with food Seroquel (Quetiapine Fumarate) 25 Mg Tab 125 Mg PO HS Breo Ellipta Inh (Fluticasone/Vilanterol) 200-25 Mcg/Act Inh 1 Puff INH DAILY Use daily at the same time. Latuda (Lurasidone) 40 Mg Tab 40 Mg PO DAILY Spironolactone 50 Mg Tab 100 Mg PO BID Ventolin Hfa 18 GM Inh (Albuterol Sulfate) 90 Mcg/Act Aer 2 Puff INH Q4H PRN Humulin R U-500 (Concentrate) Inj (Insulin Regular (Human) Concentrate Inj) 10, 000 Unit/20 Ml Vial VIA INSULIN PUMP Levothyroxine (Levothyroxine Sodium) 125 Mcg Tab 250 Mcg PO DAILY Metoprolol Tartrate 100 Mg Tab 200 Mg PO BID Imitrex (Sumatriptan Succinate) 100 Mg Tab 100 Mg PO ONCE PRN If a satisfactory response has not been obtained at 2 hours, a second dose may be administered Review of Systems General / Constitutional: No: Fever Eyes: No: Visual changes HENT: No: Headaches Cardiovascular: No: Chest Pain or Discomfort Respiratory: No: Shortness of Breath Gastrointestinal: No: Abdominal Pain Genitourinary: No: Dysuria Musculoskeletal: No: Pain Skin: No Rash Neurologic: No: Weakness Psychiatric: No: Depression Endocrine: No: Polydipsia Hematologic/Lymphatic: No: Easy Bruising Physical Exam Narrative GENERAL: Well-nourished, well-developed patient. SKIN: Focused skin assessment warm/dry. HEAD: Normocephalic. EYES: No scleral icterus. No injection or drainage. NECK: Supple, trachea midline. No JVD or lymphadenopathy. CARDIOVASCULAR: Regular rate and rhythm without murmurs, gallops, or rubs. RESPIRATORY: Breath sounds equal bilaterally. No accessory muscle use. GASTROINTESTINAL: Abdomen soft, non-tender, nondistended. MUSCULOSKELETAL: No cyanosis, or edema. BACK: Nontender without obvious deformity. No CVA tenderness. Patient has blister on the webspace between the fourth and fifth toes. Serosanguineous fluid noted. Patient has skin redness associate with the blister on the left foot. Data Data Last Documented VS Vital Signs Date Time Temp Pulse Resp B/P (MAP) Pulse Ox O2 Delivery O2 Flow Rate FiO2 05/25/17 19:59 99.4 108 20 150/96 (114) 96 Orders Orders Wound Culture And Gram Stain (05/25/17 21:56) Clindamycin (Cleocin) (05/25/17 22:00) Sulfamet-Trimeth Ds 800-160 Mg (Bactrim (05/25/17 22:00) MDM Medical Decision Making Medical Screen Exam Complete: Yes Emergency Medical Condition: Yes Differential Diagnosis Differential diagnosis including cellulitis, abscess, osteomyelitis. Narrative Course 51-year-old female with infected blister lesion on left foot and cellulitis of the left foot. Patient has history of diabetes with diabetic neuropathy. Bactrim DS, one tablet by mouth given. Clindamycin 300 mg by mouth given. TD booster given. Procedures Procedure Narrative I&D procedure: The area cleaned with some Betadine wash. The blister was debrided with forceps and scissors. Wound culture obtained. Dressing applied. Diagnosis Primary Impression: Infected blister of left foot Qualified Codes: S90.822A - Blister (nonthermal), left foot, initial encounter ; L08.9 - Local infection of the skin and subcutaneous tissue, unspecified Additional Impression: Cellulitis of left foot Patient Instructions: General Instructions Additional Instructions: Take antibiotics as directed. Wound care daily. Follow-up with personal physician and membership secretary. Return if worse. Med/Other Pt SpecificInfo: Prescription(s) given Scripts Clindamycin (Clindamycin) 150 Mg Cap 300 MG PO QID for Infection, #80 CAP 0 Refills Prov: Alex Shea MD 05/25/17 Sulfamethoxazole-Trimethoprim (Bactrim DS) 800-160 Mg Tab 1 TAB PO BID for Infection, #20 TAB 0 Refills Prov: Alex Shea MD 05/25/17 Disposition: 01 DISCHARGE HOME Condition: Stable Alex Shea MD May 25, 2017 22:07
[2017-05-25] MEDS ORDERED: TETANUS/DIPHTHERIA TOXOID ADULT 0.5 ML VIAL IM ONE (22:15)
== END 2017-05-25 22:24 | disposition home or self-care (01) ==
LOC: PHED 19:33 → PHEFT 22:24
DX: S90.822A Blister (nonthermal), left foot, initial encounter (principal); L08.9 Local infection of the skin and subcutaneous tissue, unspecified; L03.116 Cellulitis of left lower limb; J45.909 Unspecified asthma, uncomplicated; F31.9 Bipolar disorder, unspecified; E78.00 Pure hypercholesterolemia, unspecified; E11.40 Type 2 diabetes mellitus with diabetic neuropathy, unspecified; E07.9 Disorder of thyroid, unspecified; I10 Essential (primary) hypertension; Z86.73 Personal history of transient ischemic attack (TIA), and cerebral infarction without residual deficits; Z23 Encounter for immunization; Z79.4 Long term (current) use of insulin
CPT/HCPCS: 10060; 86403; 87070; 87205; 90471; 90714

== ENCOUNTER 2017-06-06 14:38 | Observation (INO) | payer OTHER ==
[2017-06-06] VITALS (9 sets, daily range): BP systolic 136–179; BP diastolic 80–94; PULSE 98–130; RESP 16–20; TEMP 98.6–99.2; O2SAT 96–98
[~2017-06-06] VITALS: Ht 188 cm; Wt 118.1 kg
[~2017-06-06 14:38] MED LIST changes: +BACT800T5 PO; -CALC500C14 PO; +CLIN150C14 PO; -DEPA500T3 PO; -DOXY100T PO; -METR-1 PO; -SIME1CHW11 PO
[2017-06-06] MEDS ORDERED: SODIUM CHLORIDE 0.9% FLUSH 10 ML FLUSH IVF PRN (15:15)
[2017-06-06] MEDS ORDERED: ASPIRIN 325 MG TAB PO ONE (15:15)
--- NOTE | 2017-06-06 15:19 | PD ---
HPI Chief Complaint: Chest Pain Time Seen by Provider: 15:05 Travel History International Travel<30 days: No Contact w/Intl Traveler<30days: No Traveled to known affect area: No History of Present Illness HPI This patient complains of chest pain. Location is center sternum and just to the left of center. Feels like a pressure sensation. It is not exertional. Duration 3 days. Spells last 5 minutes and resolved. No alleviating factors. Exacerbating factors. He denies history of any cardiac disease. He had a normal heart catheterization 10 years ago and no recent testing. He is insulin- dependent diabetic. Severity of symptoms is moderate PFSH Past Medical History Hx Anticoagulant Therapy: Yes Arthritis: Yes (RHEUMATOID ) Asthma: Yes Autoimmune Disease: No Blood Disorders: No Bipolar Disorder: Yes Anxiety: Yes Depression: Yes Heart Rhythm Problems: No Cancer: Yes (THYROID) Cardiac Catheterization: Yes (2006) Cardiovascular Problems: Yes (htn on meds) High Cholesterol: Yes Chemotherapy: No Chest Pain: No Congestive Heart Failure: No COPD: No Cerebrovascular Accident: Yes (TIA) Diabetes: Yes (insulin) Diminished Hearing: No Endocrine: Yes (HYPOALDOSTORISM, THYROIDECTOMY) Gastrointestinal Disorders: Yes (GERD, GASTRIC SLEEVE) GERD: Yes Genitourinary: No Headaches: No Hepatitis: No Hiatal Hernia: No Hypertension: Yes Immune Disorder: No Implanted Vascular Access Dvce: Yes Musculoskeletal: Yes (LUMBAR FUSION/ NERVE STIM) Neurologic: Yes Psychiatric: Yes (CLAUSTROPHOBIC) Reproductive: No Respiratory: Yes Immunizations Current: Yes Migraines: No Myocardial Infarction: No Pneumonia: Yes Radiation Therapy: Yes Renal Failure: No Seizures: No Sleep Apnea: Yes (USES CPAP) Thyroid Disease: Yes Ulcer: No Past Surgical History Abdominal Surgery: Yes AICD: No Arteriovenous Shunt: No Body Medical Devices: LOWER BACK TITANIUM SCREWS AND RODS, SPINAL CORD STIMULATOR Cardiac Surgery: No Cholecystectomy: Yes Ear Surgery: No Endocrine Surgery: Yes (THYROIDECTOMY) Eye Surgery: No Genitourinary Surgery: Yes (2000 VASECTOMY) Gynecologic Surgery: Yes Insulin Pump: Yes Joint Replacement: No Neurologic Surgery: Yes (LUMBAR FUSION, SPINAL STIMULATOR IMPL.) Oral Surgery: No Pacemaker: No Thoracic Surgery: No Other Surgery: Yes (EX. SCAR FOOT, ARTHROSCOPY RIGHT KNEE, NEUROSTEM STENT IN AND REMOVED,) Social History Alcohol Use: Yes (occassionally ) Tobacco Use: No Substance Use: No Allergies-Medications (Allergen,Severity, Reaction): Coded Allergies: cholestyramine (Verified Allergy, Mild, NAUSEA, 05/25/17) diltiazem (Verified Allergy, Mild, Edema, 05/25/17) enalaprilat (Verified Allergy, Mild, Cough, 05/25/17) isradipine (Verified Allergy, Mild, Edema, 05/25/17) nicardipine (Verified Allergy, Mild, Edema, 05/25/17) nifedipine (Verified Allergy, Mild, Edema, 05/25/17) nimodipine (Verified Allergy, Mild, Edema, 05/25/17) verapamil (Verified Allergy, Mild, Edema, 05/25/17) amlodipine (Verified Allergy, Unknown, enlarged liver, 05/25/17) atorvastatin (Verified Allergy, Unknown, enlarged liver, 05/25/17) pravastatin (Verified Allergy, Unknown, enlarged liver, 05/25/17) simvastatin (Verified Allergy, Unknown, enlarged liver, 05/25/17) *MDRO Multi-Drug Resistant Organism (Verified Adverse Reaction, Unknown, ) MRSA (sputum) 10/27/16 Reported Meds & Prescriptions Reported Meds & Active Scripts Active Clindamycin (Clindamycin HCl) 150 Mg Cap 300 Mg PO QID Bactrim DS (Sulfamethoxazole-Trimethoprim) 800-160 Mg Tab 1 Tab PO BID Gabapentin 100 Mg Cap 200 Mg PO TID Morphine ER (Morphine Sulfate) 15 Mg Tab 15 Mg PO BID Pantoprazole (Pantoprazole Sodium) 40 Mg Tab 40 Mg PO BID NEB Aspirin EC (Aspirin) 81 Mg Tabdr 81 Mg PO DAILY Reported Cytomel (Liothyronine Sodium) 5 Mcg Tablet 10 Mcg PO BID Vitamin D3 (Cholecalciferol) 50,000 Unit Cap 50,000 Units PO 2XWEEK Mobic (Meloxicam) 15 Mg Tab 15 Mg PO DAILY Take with food Seroquel (Quetiapine Fumarate) 25 Mg Tab 125 Mg PO HS Breo Ellipta Inh (Fluticasone/Vilanterol) 200-25 Mcg/Act Inh 1 Puff INH DAILY Use daily at the same time. Latuda (Lurasidone) 40 Mg Tab 40 Mg PO DAILY Spironolactone 50 Mg Tab 100 Mg PO BID Ventolin Hfa 18 GM Inh (Albuterol Sulfate) 90 Mcg/Act Aer 2 Puff INH Q4H PRN Humulin R U-500 (Concentrate) Inj (Insulin Regular (Human) Concentrate Inj) 10, 000 Unit/20 Ml Vial VIA INSULIN PUMP Levothyroxine (Levothyroxine Sodium) 125 Mcg Tab 250 Mcg PO DAILY Metoprolol Tartrate 100 Mg Tab 200 Mg PO BID Imitrex (Sumatriptan Succinate) 100 Mg Tab 100 Mg PO ONCE PRN If a satisfactory response has not been obtained at 2 hours, a second dose may be administered Review of Systems General / Constitutional: No: Fever Eyes: No: Visual changes HENT: No: Headaches Cardiovascular: Positive: Chest Pain or Discomfort Respiratory: No: Shortness of Breath Gastrointestinal: No: Abdominal Pain Genitourinary: No: Dysuria Musculoskeletal: No: Pain Skin: No Rash Neurologic: No: Weakness Psychiatric: No: Depression Endocrine: No: Polydipsia Hematologic/Lymphatic: No: Easy Bruising Physical Exam Narrative GENERAL: Well-nourished, well-developed patient in no apparent distress. SKIN: Focused skin assessment reveals no rash and nodules. Skin is Warm and dry. HEAD: Atraumatic. Normocephalic. EYES: Pupils equal and round. No scleral icterus. No injection or drainage. ENT: No nasal bleeding or discharge. Mucous membranes pink and moist. NECK: Trachea midline. No JVD. CARDIOVASCULAR: Regular rate and rhythm. No murmur appreciated. RESPIRATORY: No accessory muscle use. Clear to auscultation. Breath sounds equal bilaterally. GASTROINTESTINAL: Abdomen soft, non-tender, nondistended. Hepatic and splenic margins not palpable. MUSCULOSKELETAL: No obvious deformities. No clubbing. No cyanosis. No edema. NEUROLOGICAL: Awake and alert. No obvious cranial nerve deficits. Motor grossly within normal limits. Normal speech. PSYCHIATRIC: Appropriate mood and affect; insight and judgment normal. Data Data Last Documented VS Vital Signs Date Time Temp Pulse Resp B/P (MAP) Pulse Ox O2 Delivery O2 Flow Rate FiO2 06/06/17 17:15 98 21 06/06/17 16:38 109 16 146/80 (102) Room Air 06/06/17 14:49 99.2 Orders Orders Electrocardiogram (06/06/17 15:09) Basic Metabolic Panel (Bmp) (06/06/17 15:09) Ckmb (Isoenzyme) Profile (06/06/17 15:09) Complete Blood Count With Diff (2/17/18 15:09) D-Dimer (06/06/17 15:09) Prothrombin Time / Inr (Pt) (06/06/17 15:09) Act Partial Throm Time (Ptt) (06/06/17 15:09) Troponin I (06/06/17 15:09) Chest, Single Ap (06/06/17 15:09) Ecg Monitoring (06/06/17 15:09) Iv Access Insert/Monitor (06/06/17 15:09) Oximetry (06/06/17 15:09) Aspirin (Aspirin) (06/06/17 15:15) Sodium Chloride 0.9% Flush (Ns Flush) (06/06/17 15:15) CKMB (06/06/17 15:23) CKMB% (06/06/17 15:23) Sodium Chlor 0.9% 1000 Ml Inj (Ns 1000 M (06/06/17 16:30) Insulin Human Regular Inj (Novolin R Inj (06/06/17 16:30) Place In Observation (06/06/17 ) Code Status (06/06/17 16:50) Vital Signs (Adult) Q4H (06/06/17 16:50) Activity Bed Rest With Brp (06/06/17 ) [employer] Install[employer]airer / Telemetry [id number] (06/06/17 16:50) Notify Dr: Other (06/06/17 ) Sodium Chloride 0.9% Flush (Ns Flush) (06/06/17 21:00) Sodium Chloride 0.9% Flush (Ns Flush) (06/06/17 17:00) Aspirin (Aspirin) (06/07/17 09:00) Metoprolol Tartrate (Lopressor) (06/06/17 21:00) Nitroglycerin 2% Oint (Nitroglycerin 2% (06/06/17 18:00) Acetaminophen (Tylenol) (06/06/17 17:00) Pantoprazole (Protonix) (06/07/17 09:00) Alprazolam (Xanax) (06/06/17 17:00) Creatine Kinase (Cpk) (06/06/17 16:50) Creatine Kinase (Cpk) (06/06/17 22:50) Troponin I (06/06/17 16:50) Troponin I (06/06/17 22:50) Basic Metabolic Panel (Bmp) (06/07/17 06:00) Lipid Profile (06/07/17 06:00) Electrocardiogram (06/06/17 16:50) Electrocardiogram (06/06/17 22:50) Resp Oxygen Art C Titrat 1-4 L (06/06/17 ) Enoxaparin Inj (Lovenox Inj) (06/06/17 18:00) Diet 1999 Ada Cons Carb (06/06/17 Dinner) Activity Bed Rest With Brp (06/06/17 16:53) Bedside Glucose [id number] (06/06/17 16:53) Insulin Aspart Supplemtl Scale (Novolog (06/06/17 17:30) Gabapentin (Neurontin) (06/06/17 18:00) Levothyroxine (Synthroid) (06/07/17 06:00) Liothyronine (Cytomel) (06/06/17 21:00) Lurasidone (Latuda) (06/07/17 09:00) Pantoprazole (Protonix) (06/06/17 20:00) Quetiapine (Seroquel) (06/06/17 21:00) Sodium Chlor 0.9% 1000 Ml Inj (Ns 1000 M (06/06/17 17:00) Albuterol-Ipratropium Neb (Duoneb Neb) (06/06/17 17:00) Spironolactone (Aldactone) (06/06/17 21:00) Metoprolol Tartrate (Lopressor) (06/06/17 21:00) Quetiapine (Seroquel) (06/06/17 21:00) Admit Order (Ed Use Only) (06/06/17 17:18) Labs Laboratory Tests Test 06/06/17 15:23 White Blood Count 6.4 TH/MM3 Red Blood Count 4.57 MIL/MM3 Hemoglobin 13.3 GM/DL Hematocrit 39.9 % Mean Corpuscular Volume 87.4 FL Mean Corpuscular Hemoglobin 29.1 PG Mean Corpuscular Hemoglobin Concent 33.3 % Red Cell Distribution Width 14.2 % Platelet Count 217 TH/MM3 Mean Platelet Volume 8.9 FL Neutrophils (%) (Auto) 74.2 % Lymphocytes (%) (Auto) 17.8 % Monocytes (%) (Auto) 5.9 % Eosinophils (%) (Auto) 0.7 % Basophils (%) (Auto) 1.4 % Neutrophils # (Auto) 4.8 TH/MM3 Lymphocytes # (Auto) 1.1 TH/MM3 Monocytes # (Auto) 0.4 TH/MM3 Eosinophils # (Auto) 0.0 TH/MM3 Basophils # (Auto) 0.1 TH/MM3 CBC Comment DIFF FINAL Differential Comment Prothrombin Time 10.0 SEC Prothromb Time International Ratio 1.0 RATIO Activated Partial Thromboplast Time 26.3 SEC D-Dimer Quantitative (PE/DVT) 0.44 MG/L FEU Blood Urea Nitrogen 20 MG/DL Creatinine 1.60 MG/DL Random Glucose 460 MG/DL Calcium Level 8.4 MG/DL Sodium Level 131 MEQ/L Potassium Level 4.7 MEQ/L Chloride Level 100 MEQ/L Carbon Dioxide Level 21.8 MEQ/L Anion Gap 9 MEQ/L Estimat Glomerular Filtration Rate 46 ML/MIN Total Creatine Kinase 403 U/L Creatine Kinase MB 7.1 NG/ML Creatine Kinase MB % 1.8 % Troponin I LESS THAN 0.02 NG/ML MDM Medical Decision Making Medical Screen Exam Complete: Yes Emergency Medical Condition: Yes Medical Record Reviewed: Yes Differential Diagnosis Differential diagnosis includes FL, angina, pericarditis, pleurisy, GERD, anxiety. Narrative Course I have reviewed the patient's electronic medical record. IV placed I reviewed the EKG which shows sinus tachycardia without ectopy I reviewed the chest x-ray which is negative for acute consolidation Extended cardiac monitoring shows sinus tachycardia without ectopy CBC is normal Metabolic profile shows hyperglycemia of 460 with normal bicarbonate CK is normal Troponin is normal Coagulation studies are normal I gave him an aspirin D-dimer is 0.44 I gave him 12 units IV regular insulin and 1 L normal saline IV bolus Heart rate is between 110 and 120 sinus tachycardia persistent Case reviewed with patient's Dr. Velasco who will do 23 hour observation on telemetry for evaluation of chest pain as well as hyperglycemia and tachycardia Diagnosis Primary Impression: Chest pain Qualified Codes: R07.9 - Chest pain, unspecified Additional Impressions: Hyperglycemia Sinus tachycardia Diabetes mellitus type 2, insulin dependent Admitting Information Admitting Physician Requests: Observation James Dawson MD Jun 06, 2017 15:18
[2017-06-06 15:40] LABS: AUTOMATED NEUTROPHIL # 4.8 TH/MM3 (1.8-7.7); BASOPHIL # 0.1 TH/MM3 (0-0.2); BASOPHIL % 1.4 % (0.0-2.0); EOSINOPHIL % 0.7 % (0.0-4.0); HEMATOCRIT 39.9 % (39.0-51.0); HEMOGLOBIN 13.3 GM/DL (13.0-17.0); LYMPH % 17.8 % (9.0-44.0); LYMPHOCYTE # 1.1 TH/MM3 (1.0-4.8); MEAN CELL VOLUME 87.4 FL (80.0-100.0); MEAN CORPUSCULAR HEMOGLOBIN 29.1 PG (27.0-34.0); MEAN CORPUSCULAR HGB CONC 33.3 % (32.0-36.0); MEAN PLATELET VOLUME 8.9 FL (7.0-11.0); MONO % 5.9 % (0.0-8.0); MONOCYTE # 0.4 TH/MM3 (0-0.9); NEUT % 74.2 % (16.0-70.0); PLATELET COUNT 217 TH/MM3 (150-450); RED BLOOD COUNT 4.57 MIL/MM3 (4.50-5.90); RED CELL DISTRIBUTION WIDTH 14.2 % (11.6-17.2); WHITE BLOOD COUNT 6.4 TH/MM3 (4.0-11.0)
[2017-06-06 15:45] LABS: CHLORIDE 100 MEQ/L (98-107); SODIUM (NA) 131 MEQ/L (136-145)
[2017-06-06 15:47] LABS: CALCIUM 8.4 MG/DL (8.5-10.1)
[2017-06-06 15:57] LABS: D-DIMER 0.44 MG/L FEU (0.00-0.50)
[2017-06-06 15:59] LABS: BICARBONATE 21.8 MEQ/L (21.0-32.0); BLOOD UREA NITROGEN 20 MG/DL (7-18); GLOMERULAR FILTRATION RATE 46 ML/MIN (>89); TROPONIN I LESS THAN 0.02 NG/ML (0.02-0.05)
[2017-06-06 16:02] LABS: GLUCOSE,RANDOM 460 MG/DL (74-106)
--- NOTE | 2017-06-06 16:17 | RADRPT ---
EXAM DATE/TIME: 06/06/2017 15:46 [facility] COMPARISON: CHEST PA & LAT, January 28, 2017, 8:56. CHEST SINGLE AP, January 27, 2017, 9:16. INDICATIONS : Tachycardia, chest pain and shortness of breath. MEDICAL HISTORY : Hypercholesterolemia. Tachycardia, Hypertension, GERD, Asthma, TIA, Pneumonia. SURGICAL HISTORY : Cardiac cath. ENCOUNTER: Initial ACUITY: 1 day PAIN SCORE: 6/10 LOCATION: Bilateral chest FINDINGS: Portable AP view of the chest demonstrates a normal-sized cardiac silhouette. No effusion, consolidat ion, or pneumothorax is visualized. The bones and soft tissues demonstrate no acute abnormality. EKG lines overlie the patient. There is stimulator leads overlie the mid thoracic spine. CONCLUSION: No acute cardiopulmonary abnormality is identified. Wilberto Alexander MD on June 06, 2017 at 16:14 Board Certified Radiologist. This report was verified electronically.
[2017-06-06] MEDS ORDERED: SODIUM CHLOR 0.9% 1000 ML INJ 1,000 ML IV ONE (16:30)
[2017-06-06] MEDS ORDERED: INSULIN HUMAN REGULAR 1,000 UNITS/10 ML VIAL IV PUSH ONE (16:30)
[2017-06-06] MEDS ORDERED: SODIUM CHLORIDE 0.9% FLUSH 10 ML FLUSH IV FLUSH PRN (17:00)
[2017-06-06] MEDS ORDERED: RESP: ALBUTEROL 2.5 MG/IPRATROPIUM 0.5 MG NEB (PRN) NEB (17:00)
[2017-06-06] MEDS: INSULIN ASPART SUPPLEMENTAL SCALE SQ SCH ×2 (17:18→22:07)
--- NOTE | 2017-06-06 17:56 | HHI.HP ---
HPI Service [facility] Hospitalists Primary Care Physician Emmett Velasco MD, PhD Admission Diagnosis chest pain, hyperglycemia,tachycardia Chief Complaint: chest pain Travel History International Travel<30 Days: No Contact w/Intl Traveler <30 Da: No Traveled to Known Affected Are: No History of Present Illness 51 y.o. WM well known to me with multiple medical issues including DM, obesity, bipolar depression, Conn's syndrome presents to ER due to noting his heart rate was in 120s on his Apple I-watch. He also noted some intermittent CP/pressure over last 3 days. No radiation. + substernal just to left of sternum. 4-5/10 intensity. No n/v. No palpitations, but could tell his heart rate was fast at times. No diarrhea or constipation. No f/c. No increased SOB. No cough. No urinary symptoms. Chest pressure has been lasting 3-5 mins and occurring appx 4x/day for last 3 days. Nonexertional and not a/w food. No rash. Not currently having CP. has noted a couple of episodes since the nitro paste was placed, but only a few seconds and not as severe as previous. Heart cath in 2004 was neg. Neg stress test in 2009. Review of Systems Constitutional: COMPLAINS OF: Fatigue, DENIES: Diaphoretic episodes, Fever, Weight gain, Weight loss, Chills, Dizziness, Change in appetite, Night Sweats Endocrine: DENIES: Heat/cold intolerance, Polydipsia, Polyuria, Polyphagia Eyes: DENIES: Blurred vision, Diplopia, Eye inflammation, Eye pain, Vision loss , Photosensitivity, Double Vision Ears, nose, mouth, throat: DENIES: Tinnitus, Hearing loss, Vertigo, Nasal discharge, Oral lesions, Throat pain, Hoarseness, Ear Pain, Running Nose, Epistaxis, Sinus Pain, Toothache, Odynophagia Respiratory: DENIES: Apneas, Cough, Snoring, Wheezing, Hemoptysis, Sputum production, Shortness of breath Cardiovascular: COMPLAINS OF: Chest pain, DENIES: Palpitations, Syncope, Dyspnea on Exertion, PND, Lower Extremity Edema, Orthopnea, Claudication Gastrointestinal: DENIES: Abdominal pain, Black stools, Bloody stools, BRB per rectum, Constipation, Diarrhea, GERD, Nausea, Reflux, Vomiting, Difficulty Swallowing, Anorexia, See HPI Musculoskeletal: COMPLAINS OF: Joint pain, Back pain Hematologic/lymphatic: DENIES: Bruising, Lymphadenopathy Immunologic/allergic: DENIES: Eczema, Urticaria Neurologic: DENIES: Abnormal gait, Headache, Localized weakness, Paresthesias, Seizures, Speech Problems, Tremor, Poor Balance Psychiatric: COMPLAINS OF: Anxiety, History of Bipolar, DENIES: Confusion, Mood changes, Depression, Hallucinations, Agitation, Suicidal Ideation, Homicidal Ideation, Delusions, History of Schizophrenia Past Family Social History Past Medical History Anxiety MDD OCD, PTSD, Bipolar affective d/o, mixed type hx of C diff. hx of recurrent pneumonia DM neuropathy HyperTg HTN Lumbar facet syndrome Hypothyroidism Hx of thyroid papillary CA Migraine RA Primary hyperaldosteronism Past Surgical History Choly Lumbar laminectomy Vasectomy thyroidectomy Gastric sleeve 2012 Heart Cath 2004, negative Reported Medications Gabapentin 100 Mg Cap 800 Mg PO TID Morphine ER (Morphine Sulfate) 15 Mg Tab 15 Mg PO BID Pantoprazole (Pantoprazole Sodium) 40 Mg Tab 40 Mg PO BID NEB Aspirin EC (Aspirin) 81 Mg Tabdr 81 Mg PO DAILY Cytomel (Liothyronine Sodium) 5 Mcg Tablet 10 Mcg PO BID Vitamin D3 (Cholecalciferol) 50,000 Unit Cap 50,000 Units PO 2XWEEK Mobic (Meloxicam) 15 Mg Tab 15 Mg PO DAILY Take with food Seroquel (Quetiapine Fumarate) 25 Mg Tab 125 Mg PO HS Breo Ellipta Inh (Fluticasone/Vilanterol) 100-25 Mcg/Act Inh 1 Puff INH DAILY Use daily at the same time. Latuda (Lurasidone) 40 Mg Tab 40 Mg PO DAILY Spironolactone 50 Mg Tab 100 Mg PO BID Ventolin Hfa 18 GM Inh (Albuterol Sulfate) 90 Mcg/Act Aer 2 Puff INH Q4H PRN Humulin R U-500 (Concentrate) Inj (Insulin Regular (Human) Concentrate Inj) 10, 000 Unit/20 Ml Vial VIA INSULIN PUMP Levothyroxine (Levothyroxine Sodium) 125 Mcg Tab 250 Mcg PO DAILY Metoprolol Tartrate 100 Mg Tab 200 Mg PO BID Imitrex (Sumatriptan Succinate) 100 Mg Tab 100 Mg PO ONCE PRN If a satisfactory response has not been obtained at 2 hours, a second dose may be administered Victoza 1.8mg/d Lamotrigine 75mg bid Sertraline 25mg/d Allergies: Coded Allergies: cholestyramine (Verified Allergy, Mild, NAUSEA, 05/25/17) diltiazem (Verified Allergy, Mild, Edema, 05/25/17) enalaprilat (Verified Allergy, Mild, Cough, 05/25/17) isradipine (Verified Allergy, Mild, Edema, 05/25/17) nicardipine (Verified Allergy, Mild, Edema, 05/25/17) nifedipine (Verified Allergy, Mild, Edema, 05/25/17) nimodipine (Verified Allergy, Mild, Edema, 05/25/17) verapamil (Verified Allergy, Mild, Edema, 05/25/17) amlodipine (Verified Allergy, Unknown, enlarged liver, 05/25/17) atorvastatin (Verified Allergy, Unknown, enlarged liver, 05/25/17) pravastatin (Verified Allergy, Unknown, enlarged liver, 05/25/17) simvastatin (Verified Allergy, Unknown, enlarged liver, 05/25/17) *MDRO Multi-Drug Resistant Organism (Verified Adverse Reaction, Unknown, ) MRSA (sputum) 10/27/16 Family History DM, Bipolar d/o, pancreatic CA, HTN Social History No tobacco, ETOH, Illicits , lives alone, 2 adult children previously worked at [employer], currently unemployed Physical Exam Vital Signs Vital Signs Date Time Temp Pulse Resp B/P (MAP) Pulse Ox O2 Delivery O2 Flow Rate FiO2 06/06/17 17:15 98 21 06/06/17 16:38 109 16 146/80 (102) 98 Room Air 06/06/17 15:25 98 Room Air 06/06/17 14:49 99.2 130 16 179/93 (121) 97 Physical Exam GENERAL: This is a well-nourished, obese, well-developed patient, in no apparent distress. a/o. Appears in usual state of health. SKIN: Left foot with interdigital wound which is dressed. Dressing c/d/i. No d/ c. Pt reports wound healing well. Cool and dry. HEAD: Atraumatic. Normocephalic. No temporal or scalp tenderness. EYES: Pupils equal round and reactive. Extraocular motions intact. No scleral icterus. No injection or drainage. ENT: Nose without bleeding, purulent drainage or septal hematoma. Throat without erythema, tonsillar hypertrophy or exudate. Uvula midline. Airway patent. NECK: Trachea midline. No JVD or lymphadenopathy. Supple, nontender, no meningeal signs. CARDIOVASCULAR: Regular rate and rhythm without murmurs, gallops, or rubs. Rate appx 110 on my exam. RESPIRATORY: Clear to auscultation. Breath sounds equal bilaterally. No wheezes , rales, or rhonchi. GASTROINTESTINAL: Abdomen soft, non-tender, nondistended. No hepato-splenomegaly , or palpable masses. No guarding. BS wnl. MUSCULOSKELETAL: Extremities without clubbing, cyanosis, or edema. No joint tenderness, effusion, or edema noted. No calf tenderness. NEUROLOGICAL: Awake and alert. Cranial nerves II through XII intact. Motor and sensory grossly within normal limits. Five out of 5 muscle strength in all muscle groups. Normal speech. Laboratory Laboratory Tests Test 06/06/17 15:23 White Blood Count 6.4 Red Blood Count 4.57 Hemoglobin 13.3 Hematocrit 39.9 Mean Corpuscular Volume 87.4 Mean Corpuscular Hemoglobin 29.1 Mean Corpuscular Hemoglobin Concent 33.3 Red Cell Distribution Width 14.2 Platelet Count 217 Mean Platelet Volume 8.9 Neutrophils (%) (Auto) 74.2 Lymphocytes (%) (Auto) 17.8 Monocytes (%) (Auto) 5.9 Eosinophils (%) (Auto) 0.7 Basophils (%) (Auto) 1.4 Neutrophils # (Auto) 4.8 Lymphocytes # (Auto) 1.1 Monocytes # (Auto) 0.4 Eosinophils # (Auto) 0.0 Basophils # (Auto) 0.1 CBC Comment DIFF FINAL Differential Comment Prothrombin Time 10.0 Prothromb Time International Ratio 1.0 Activated Partial Thromboplast Time 26.3 D-Dimer Quantitative (PE/DVT) 0.44 Blood Urea Nitrogen 20 Creatinine 1.60 Random Glucose 460 Calcium Level 8.4 Sodium Level 131 Potassium Level 4.7 Chloride Level 100 Carbon Dioxide Level 21.8 Anion Gap 9 Estimat Glomerular Filtration Rate 46 Total Creatine Kinase 403 Creatine Kinase MB 7.1 Creatine Kinase MB % 1.8 Troponin I LESS THAN 0.02 Result Diagram: 06/06/17 1523 06/06/17 1523 Caprini VTE Risk Assessment Caprini VTE Risk Assessment: Mod/High Risk (score >= 2) Caprini Risk Assessment Model Point Value = 1 Point Value = 2 Point Value = 3 Point Value = 5 Age 41-60 Minor surgery BMI > 25 kg/m2 Swollen legs Varicose veins or History of unexplained or recurrent spontaneous Oral contraceptives or hormone replacement Sepsis (< 1 month) Serious lung disease, including pneumonia (< 1 month) Abnormal pulmonary function Acute myocardial infarction Congestive heart failure (< 1 month) History of inflammatory bowel disease Medical patient at bed rest Age 61-74 Arthroscopic surgery Major open surgery (> 45 min) Laparoscopic surgery (> 45 min) Malignancy Confined to bed (> 72 hours) Immobilizing plaster cast Central venous access Age >= 75 History of VTE Family history of VTE Factor V Leiden Prothrombin [id number] Lupus anticoagulant Anticardiolipin antibodies Elevated serum homocysteine Heparin-induced thrombocytopenia Other congenital or acquired thrombophilia Stroke (< 1 month) Elective arthroplasty Hip, pelvis, or leg fracture Acute spinal cord injury (< 1 month) Prophylaxis Regimen Total Risk Factor Score Risk Level Prophylaxis Regimen 0-1 Low Early ambulation 2 Moderate Order ONE of the following: *Sequential Compression Device (SCD) *Heparin 5000 units SQ BID 3-4 Higher Order ONE of the following medications: *Heparin 5000 units SQ TID *Enoxaparin/Lovenox 40 mg SQ daily (WT < 150 kg, CrCl > 30 mL/min) *Enoxaparin/Lovenox 30 mg SQ daily (WT < 150 kg, CrCl > 10-29 mL/min) *Enoxaparin/Lovenox 30 mg SQ BID (WT < 150 kg, CrCl > 30 mL/min) AND/OR *Sequential Compression Device (SCD) 5 or more Highest Order ONE of the following medications: *Heparin 5000 units SQ TID (Preferred with Epidurals) *Enoxaparin/Lovenox 40 mg SQ daily (WT < 150 kg, CrCl > 30 mL/min) *Enoxaparin/Lovenox 30 mg SQ daily (WT < 150 kg, CrCl > 10-29 mL/min) *Enoxaparin/Lovenox 30 mg SQ BID (WT < 150 kg, CrCl > 30 mL/min) AND *Sequential Compression Device (SCD) Assessment and Plan Problem List: (1) Chest pain ICD Codes: R07.9 - Chest pain, unspecified Status: Acute Plan: Initial EKG, enzymes neg. Multiple risk factors, Neg cath 2004, neg ETT 2009 Will r/o. Possible stress test in AM (2) Sinus tachycardia ICD Codes: R00.0 - Tachycardia, unspecified Status: Acute Plan: Provide IVF which should help with renal insuff and hyperglycemia. 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 Uses U500 in pump and Vitoza daily as well. Will provide SSI and Levemir for basal insulin. Hopefully hydration will help. A1c 9.0 in Apr 2017. Follows with Dr Batista outpt. (4) Hypothyroid ICD Codes: E03.9 - Hypothyroidism, unspecified Status: Chronic Plan: continue rx. T4 wnl with TSH 0.065 in late Apr 2017. TSH was 0.023 in early Apr 2017. Outpt management per Dr Batista. (5) HTN (hypertension) ICD Codes: I10 - Essential (primary) hypertension Status: Chronic Plan: resume rx Code Status full Discussed Condition With Pt, his mother and ER physician Problem Qualifiers (1) Chest pain: Qualified Codes: R07.9 - Chest pain, unspecified (2) Hypothyroid: Qualified Codes: E03.9 - Hypothyroidism, unspecified (3) HTN (hypertension): Qualified Codes: I10 - Essential (primary) hypertension Emmett Velasco MD PhD Jun 06, 2017 17:56
[2017-06-06] MEDS ORDERED: GABAPENTIN 100 MG CAP PO SCH (18:00)
[2017-06-06] MEDS: NITROGLYCERIN 2% OINT 1 GM PACKET TOP SCH ×2 (18:09→23:19)
[2017-06-06] MEDS: ENOXAPARIN SODIUM 30 MG/0.3 ML SYRINGE SQ SCH (18:09)
[2017-06-06] MEDS: SODIUM CHLOR 0.9% 1000 ML INJ 1,000 ML IV SCH (18:10)
[2017-06-06] MEDS: ACETAMINOPHEN 500 MG CPLT PO PRN (18:12)
[2017-06-06] MEDS: GABAPENTIN 400 MG CAP PO SCH (18:42)
[2017-06-06] MEDS ORDERED: PANTOPRAZOLE SOD 40 MG DELAYED RELEASE TAB PO SCH (20:00)
[2017-06-06] MEDS: SODIUM CHLORIDE 0.9% FLUSH 10 ML FLUSH IV FLUSH SCH (20:21)
[2017-06-06] MEDS: QUEtiapine FUMARATE 100 MG TAB PO SCH (20:23)
[2017-06-06] MEDS: MORPHINE SULFATE 15 MG CONTROLLED RELEASE TAB PO SCH (20:24)
[2017-06-06] MEDS: METOPROLOL TARTRATE 100 MG TAB PO SCH (20:24)
[2017-06-06] MEDS: QUEtiapine FUMARATE 25 MG TAB PO SCH (20:24)
[2017-06-06] MEDS: lamoTRIgine 25 MG TAB PO SCH (20:25)
[2017-06-06] MEDS ORDERED: INSULIN DETEMIR 100 UNITS/ML VIAL SQ SCH (21:00)
[2017-06-06] MEDS ORDERED: METOPROLOL TARTRATE 25 MG TAB PO SCH (21:00)
[2017-06-06] MEDS: INSULIN DETEMIR 100 UNITS/ML VIAL SQ SCH (22:07)
[2017-06-06] MEDS: LIOTHYRONINE SODIUM 5 MCG TAB PO SCH (22:53)
[2017-06-06] MEDS: SPIRONOLACTONE 100 MG TAB PO SCH (22:54)
[2017-06-06] MEDS: LURASIDONE 40 MG TAB PO SCH (22:55)
[2017-06-06 23:19] LABS: TROPONIN I LESS THAN 0.02 NG/ML (0.02-0.05)
[2017-06-07] VITALS (10 sets, daily range): BP systolic 114–156; BP diastolic 62–90; PULSE 85–117; RESP 16–20; TEMP 97.4–99.1; O2SAT 96–98
[2017-06-07] MEDS: ALPRAZolam 0.25 MG TAB PO PRN ×2 (01:12→14:23)
[2017-06-07] MEDS: SODIUM CHLOR 0.9% 1000 ML INJ 1,000 ML IV SCH (03:37)
[2017-06-07] MEDS: LEVOTHYROXINE SODIUM 125 MCG TAB PO SCH (06:03)
[2017-06-07] MEDS: NITROGLYCERIN 2% OINT 1 GM PACKET TOP SCH ×3 (06:03→17:39)
--- NOTE | 2017-06-07 06:56 | HHI.PR ---
Subjective Remarks Overall reports he is feeling well. He did have a little chest pressure around 1 AM which lasted 2 minutes. At that time he was given a Xanax which helped him sleep and he had no more chest pain overnight. EKGs are unchanged from previous with possible prior inferior IL noted. This a.m. troponin pending. Troponins negative so far. Planning stress test this morning. Objective Vitals Vital Signs Date Time Temp Pulse Resp B/P (MAP) Pulse Ox O2 Delivery O2 Flow Rate FiO2 06/07/17 04:55 97.7 99 16 125/79 (94) 98 06/07/17 01:07 88 128/75 (92) 06/07/17 00:40 98.0 90 18 114/62 (79) 97 06/06/17 21:02 98.6 116 18 136/85 (102) 96 06/06/17 20:50 109 06/06/17 20:15 97 21 06/06/17 18:37 06/06/17 18:33 98 16 156/94 (114) 98 Room Air 06/06/17 18:33 98 06/06/17 18:30 98.9 98 20 158/92 (114) 98 06/06/17 17:15 98 21 06/06/17 16:38 109 16 146/80 (102) 98 Room Air 06/06/17 15:25 98 Room Air 06/06/17 14:49 99.2 130 16 179/93 (121) 97 GENERAL: Sleeping, arouses to voice, alert and oriented. No acute distress. Denies chest pain. SKIN: Warm and dry. HEAD: Normocephalic. EYES: No scleral icterus. No injection or drainage. NECK: Supple, trachea midline. No JVD or lymphadenopathy. CARDIOVASCULAR: Regular rate and rhythm without murmurs, gallops, or rubs. RESPIRATORY: Breath sounds equal bilaterally. No accessory muscle use. GASTROINTESTINAL: Abdomen soft, non-tender, nondistended. Bowel sounds present. MUSCULOSKELETAL: No cyanosis, or edema. Left foot with chronic interdigital wound healing. BACK: No CVA tenderness. Result Diagram: 06/06/17 1523 06/06/17 1523 Urinary Catheter: No Vascular Central Line Catheter: No A/P Problem List: (1) Chest pain ICD Codes: R07.9 - Chest pain, unspecified Status: Acute Plan: EKG with no changes, enzymes neg. Multiple risk factors, Neg cath 2004, neg ETT 2009 Plan stress test this morning. (2) Sinus tachycardia ICD Codes: R00.0 - Tachycardia, unspecified Status: Acute Plan: Provide IVF which should help with renal insuff and hyperglycemia. Resumed his BB (3) Diabetes mellitus type 2, insulin dependent ICD Codes: E11.9 - Diabetes mellitus type 2, insulin dependent; Z79.4 - [facility] (current) use of insulin Status: Chronic Plan: significant hyperglycemia. Uses U500 injection and Victoza daily as well. No longer on pump per patient. Will provide SSI and Levemir for basal insulin. Hopefully hydration will help. A1c 9.0 in Apr 2017. Follows with Dr Batista outpt. Strongly encouraged dietary compliance. (4) Hypothyroid ICD Codes: E03.9 - Hypothyroidism, unspecified Status: Chronic Plan: continue rx. T4 wnl with TSH 0.065 in late Apr 2017. TSH was 0.023 in early Apr 2017. Outpt management per Dr Batista. (5) HTN (hypertension) ICD Codes: I10 - Essential (primary) hypertension Status: Chronic Plan: resumed rx Discharge Planning Hopefully discharge home later today after stress test but will depend on results and patient progress obviously. Problem Qualifiers (1) Chest pain: Qualified Codes: R07.9 - Chest pain, unspecified (2) Hypothyroid: Qualified Codes: E03.9 - Hypothyroidism, unspecified (3) HTN (hypertension): Qualified Codes: I10 - Essential (primary) hypertension Emmett Velasco MD PhD Jun 07, 2017 06:56
[2017-06-07 07:06] LABS: CALCIUM 8.6 MG/DL (8.5-10.1)
[2017-06-07 07:16] LABS: BICARBONATE 26.2 MEQ/L (21.0-32.0)
[2017-06-07] MEDS: INSULIN ASPART SUPPLEMENTAL SCALE SQ SCH ×4 (08:00→20:43)
[2017-06-07] MEDS: GABAPENTIN 400 MG CAP PO SCH ×3 (08:10→17:43)
[2017-06-07] MEDS: METOPROLOL TARTRATE 100 MG TAB PO SCH ×2 (08:10→20:30)
[2017-06-07] MEDS: lamoTRIgine 25 MG TAB PO SCH ×2 (08:10→20:43)
[2017-06-07] MEDS: MORPHINE SULFATE 15 MG CONTROLLED RELEASE TAB PO SCH ×2 (08:11→20:31)
[2017-06-07] MEDS: INSULIN DETEMIR 100 UNITS/ML VIAL SQ SCH ×2 (08:11→21:52)
[2017-06-07] MEDS: PANTOPRAZOLE SOD 40 MG DELAYED RELEASE TAB PO SCH (08:11)
[2017-06-07] MEDS: ASPIRIN 325 MG TAB PO SCH (08:12)
[2017-06-07] MEDS: SPIRONOLACTONE 100 MG TAB PO SCH ×2 (08:12→20:43)
[2017-06-07] MEDS: ACETAMINOPHEN 500 MG CPLT PO PRN (08:25)
[2017-06-07] MEDS: SODIUM CHLORIDE 0.9% FLUSH 10 ML FLUSH IV FLUSH SCH ×2 (09:00→20:45)
[2017-06-07] MEDS ORDERED: LURASIDONE 40 MG TAB PO SCH (09:00)
[2017-06-07] MEDS: LIOTHYRONINE SODIUM 5 MCG TAB PO SCH ×2 (09:07→20:30)
[2017-06-07] MEDS: SILVER SULFADIAZINE 1% CR 50 GM JAR TOPICAL SCH (09:08)
[2017-06-07 09:12] LABS: CHOLESTEROL/ HDL RATIO 6.38 RATIO; HDL CHOLESTEROL 27.4 MG/DL (40.0-60.0)
[2017-06-07] MEDS ORDERED: REGADENOSON INJ 0.4 MG/5 ML SYR IV ONE (13:27)
--- NOTE | 2017-06-07 15:35 | EKG ---
Date Performed: 06/06/2017 Time Performed: 15:08:52 PTAGE: 51 years EKG: Sinus tachycardia INFERIOR MYOCARDIAL INFARCTION, AGE INDETERMINATE ABNORMAL ECG PREVIOUS TRACING : 01/27/2017 09.00 DOCTOR: Bryson Ko Interpretating Date/Time 06/07/2017 15:34:59
--- NOTE | 2017-06-07 15:36 | EKG ---
Date Performed: 06/06/2017 Time Performed: 22:46:23 PTAGE: 51 years EKG: Sinus rhythm INFERIOR MYOCARDIAL INFARCTION, AGE INDETERMINATE ABNORMAL ECG PREVIOUS TRACING : 06/06/2017 15.08 DOCTOR: Bryson Ko Interpretating Date/Time 06/07/2017 15:35:11
--- NOTE | 2017-06-07 15:36 | EKG ---
Date Performed: 06/07/2017 Time Performed: 06:25:56 PTAGE: 51 years EKG: ELECTRONIC ATRIAL PACEMAKER INFERIOR MYOCARDIAL INFARCTION, AGE INDETERMINATE ABNORMAL ECG PREVIOUS TRACING : 06/06/2017 22.46 DOCTOR: Bryson Ko Interpretating Date/Time 06/07/2017 15:35:28
[2017-06-07] MEDS: ENOXAPARIN SODIUM 30 MG/0.3 ML SYRINGE SQ SCH (17:43)
[2017-06-07] MEDS: QUEtiapine FUMARATE 25 MG TAB PO SCH (20:30)
[2017-06-07] MEDS: LURASIDONE 40 MG TAB PO SCH (20:30)
[2017-06-07] MEDS: QUEtiapine FUMARATE 100 MG TAB PO SCH (20:30)
[2017-06-08 00:32] VITALS: BP 137/88; PULSE 84; RESP 16; TEMP 97.3; O2SAT 96
[2017-06-08 04:40] VITALS: BP 133/85; PULSE 92; RESP 18; TEMP 98.3; O2SAT 99
[2017-06-08] MEDS: LEVOTHYROXINE SODIUM 125 MCG TAB PO SCH (06:00)
[2017-06-08] MEDS: NITROGLYCERIN 2% OINT 1 GM PACKET TOP SCH ×3 (06:00→11:26)
--- NOTE | 2017-06-08 07:38 | HHI.PR ---
Subjective Remarks Feeling well. No more chest pain or pressure. Tolerating oral intake well. Awaiting second portion of the myocardial perfusion scan this morning. Objective Vitals Vital Signs Date Time Temp Pulse Resp B/P (MAP) Pulse Ox O2 Delivery O2 Flow Rate FiO2 06/08/17 04:40 98.3 92 18 133/85 (101) 99 06/08/17 00:32 97.3 84 16 137/88 (104) 96 06/07/17 21:17 98 Nasal Cannula 2.00 06/07/17 21:16 98 21 06/07/17 20:22 99.1 117 20 141/84 (103) 97 06/07/17 20:00 113 06/07/17 16:00 98.8 96 20 156/90 (112) 97 06/07/17 12:00 98.3 87 18 126/77 (93) 96 06/07/17 09:25 20 06/07/17 09:25 20 06/07/17 08:00 110 06/07/17 08:00 96 21 06/07/17 08:00 97.4 85 20 139/82 (101) 96 GENERAL: Sleeping, arouses to voice, alert and oriented. No acute distress. SKIN: Warm and dry. Left foot with wound dressed. No discharge or bleeding. HEAD: Normocephalic. EYES: No scleral icterus. No injection or drainage. NECK: Supple, trachea midline. No JVD or lymphadenopathy. CARDIOVASCULAR: Regular rate and rhythm without murmurs, gallops, or rubs. RESPIRATORY: Breath sounds equal bilaterally. No accessory muscle use. GASTROINTESTINAL: Abdomen soft, non-tender, nondistended. Bowel sounds present. MUSCULOSKELETAL: No cyanosis, or edema. Left foot with chronic interdigital wound healing. BACK: No CVA tenderness. Result Diagram: 06/06/17 1523 06/07/17 0645 Urinary Catheter: No Vascular Central Line Catheter: No A/P Problem List: (1) Chest pain ICD Codes: R07.9 - Chest pain, unspecified Status: Acute Plan: EKG with no changes, enzymes neg. Multiple risk factors, Neg cath 2004, neg ETT 2009 Second portion of myocardial perfusion scan pending this morning. No more chest pain. Hopefully discharge home today depending on stress test results. (2) Sinus tachycardia ICD Codes: R00.0 - Tachycardia, unspecified Status: Acute Plan: Renal insufficiency improved. Heart rate improved. Resumed his BB (3) Diabetes mellitus type 2, insulin dependent ICD Codes: E11.9 - Diabetes mellitus type 2, insulin dependent; Z79.4 - [facility] (current) use of insulin Status: Chronic Plan: significant hyperglycemia. Uses U500 injection and Victoza daily as well. No longer on pump per patient. Will provide SSI and Levemir for basal insulin. A1c 9.0 in Apr 2017. Follows with Dr Batista outpt. Strongly encouraged dietary compliance. (4) Hypothyroid ICD Codes: E03.9 - Hypothyroidism, unspecified Status: Chronic Plan: continue rx. T4 wnl with TSH 0.065 in late Apr 2017. TSH was 0.023 in early Apr 2017. Outpt management per Dr Batista. (5) HTN (hypertension) ICD Codes: I10 - Essential (primary) hypertension Status: Chronic Plan: resumed rx Discharge Planning Hopefully discharge home later today after second portion of stress test but will depend on results and patient progress obviously. Problem Qualifiers (1) Chest pain: Qualified Codes: R07.9 - Chest pain, unspecified (2) Hypothyroid: Qualified Codes: E03.9 - Hypothyroidism, unspecified (3) HTN (hypertension): Qualified Codes: I10 - Essential (primary) hypertension Emmett Velasco MD PhD Jun 08, 2017 07:38
[2017-06-08 08:00] VITALS: BP 158/93; PULSE 85; RESP 16; TEMP 96.8; O2SAT 97
[2017-06-08] MEDS: INSULIN ASPART SUPPLEMENTAL SCALE SQ SCH ×2 (08:00→11:31)
[2017-06-08] MEDS: ASPIRIN 325 MG TAB PO SCH (08:21)
[2017-06-08] MEDS: lamoTRIgine 25 MG TAB PO SCH (08:21)
[2017-06-08] MEDS: LURASIDONE 40 MG TAB PO SCH (08:22)
[2017-06-08] MEDS: PANTOPRAZOLE SOD 40 MG DELAYED RELEASE TAB PO SCH (08:22)
[2017-06-08] MEDS: SPIRONOLACTONE 100 MG TAB PO SCH (08:22)
[2017-06-08] MEDS: MORPHINE SULFATE 15 MG CONTROLLED RELEASE TAB PO SCH (08:22)
[2017-06-08] MEDS: METOPROLOL TARTRATE 100 MG TAB PO SCH (08:23)
[2017-06-08] MEDS: SODIUM CHLORIDE 0.9% FLUSH 10 ML FLUSH IV FLUSH SCH (08:24)
[2017-06-08] MEDS: INSULIN DETEMIR 100 UNITS/ML VIAL SQ SCH (08:24)
[2017-06-08] MEDS: GABAPENTIN 400 MG CAP PO SCH ×2 (08:24→11:25)
[2017-06-08] MEDS: LIOTHYRONINE SODIUM 5 MCG TAB PO SCH (08:24)
[2017-06-08] MEDS: SILVER SULFADIAZINE 1% CR 50 GM JAR TOPICAL SCH (09:00)
--- NOTE | 2017-06-08 10:42 | RADRPT ---
EXAM DATE/TIME: 06/07/2017 13:12 [facility] COMPARISON: No previous studies available for comparison. INDICATIONS : Substernal chest pain with palpitations. Angina. DOSE: 30.0 mCi Tc99m Myoview at stress. 30.7 mCi Tc99m Myoview at rest. 0.4 mg Lexiscan STRESS SYMPTOMS: Dyspnea and chest pain. EJECTION FRACTION: 57% MEDICAL HISTORY : Hypertension. Diabetes mellitus type 2. SURGICAL HISTORY : Cholecystectomy. Thyroidectomy. Lumbar laminectomy and gastric sleeve. ENCOUNTER: Initial ACUITY: 2 days PAIN SCALE: 5/10 LOCATION: Substernal chest TECHNIQUE: The patient underwent pharmacologic stress with infusion of prescribed dose. Continuous ECG tracing was monitored during stress. Gated SPECT imaging was performed after stress and conventional SPECT i maging was performed at rest. The examination was performed on a SPECT/CT scanner, both attenuation and non-corrected datasets were reviewed. FINDINGS: DISTRIBUTION: The maximum perfused segment at stress is in the basal septal wall. PERFUSION STUDY: The pattern of perfusion at stress is within normal limits, with regional variations of perfusion wit hin 30%. No perfusion defects seen at stress; the summed stress score is one. No evidence of redist ribution.. GATED STUDY: There is intact wall motion and thickening without hypokinetic or dyskinetic segments. CONCLUSION: 1. No evidence of stress-induced ischemia. 2. Intact wall motion with 57% ejection fraction. RISK CATEGORY: Low (<1% Annual Mortality Rate) Herb Chino MD on June 08, 2017 at 10:38 Board Certified Radiologist. This report was verified electronically.
[2017-06-08 12:00] VITALS: BP 123/87; PULSE 88; RESP 20; TEMP 97.9; O2SAT 96
[2017-06-08] MEDS ORDERED: VICT18IN SQ ×2 (12:25→12:27)
[2017-06-08] MEDS ORDERED: Silver Sulfadia 1% Crm (50 Gm) TOPICAL (12:27)
[2017-06-08] MEDS ORDERED: NEUR400C PO (12:27)
--- NOTE | 2017-06-08 12:29 | HHI.DS ---
Discharge Summary Admission Date Jun 06, 2017 at 17:19 Discharge Date: Jun 08, 2017 Admitting Diagnosis chest pain, hyperglycemia,tachycardia (1) Chest pain Diagnosis: Principal ICD Codes: R07.9 - Chest pain, unspecified Status: Acute (2) Sinus tachycardia Diagnosis: Principal ICD Codes: R00.0 - Tachycardia, unspecified Status: Acute (3) Diabetes mellitus type 2, insulin dependent Diagnosis: Secondary ICD Codes: E11.9 - Diabetes mellitus type 2, insulin dependent; Z79.4 - [facility] (current) use of insulin Status: Chronic (4) Hypothyroid Diagnosis: Secondary ICD Codes: E03.9 - Hypothyroidism, unspecified Status: Chronic (5) HTN (hypertension) Diagnosis: Secondary ICD Codes: I10 - Essential (primary) hypertension Status: Chronic Brief History 51 y.o. WM well known to me with multiple medical issues including DM, obesity, bipolar depression, Conn's syndrome presents to ER due to noting his heart rate was in 120s on his Apple I-watch. He also noted some intermittent CP/pressure over last 3 days. No radiation. + substernal just to left of sternum. 4-5/10 intensity. No n/v. No palpitations, but could tell his heart rate was fast at times. No diarrhea or constipation. No f/c. No increased SOB. No cough. No urinary symptoms. Chest pressure has been lasting 3-5 mins and occurring appx 4x/day for last 3 days. Nonexertional and not a/w food. No rash. Not currently having CP. has noted a couple of episodes since the nitro paste was placed, but only a few seconds and not as severe as previous. Heart cath in 2004 was neg. Neg stress test in 2009. CBC/BMP: 06/06/17 1523 06/07/17 0645 Significant Findings Laboratory Tests Test 06/06/17 15:23 06/06/17 22:50 06/07/17 06:45 Neutrophils (%) (Auto) 74.2 % (16.0-70.0) Blood Urea Nitrogen 20 MG/DL (7-18) Creatinine 1.60 MG/DL (0.60-1.30) Random Glucose 460 MG/DL (74-106) 206 MG/DL (74-106) Calcium Level 8.4 MG/DL (8.5-10.1) Sodium Level 131 MEQ/L (136-145) Estimat Glomerular Filtration Rate 46 ML/MIN (>89) 79 ML/MIN (>89) Total Creatine Kinase 403 U/L (39-308) Creatine Kinase MB 7.1 NG/ML (0.5-3.6) Troponin I LESS THAN 0.02 NG/ML LESS THAN 0.02 NG/ML LESS THAN 0.02 NG/ML Triglycerides Level 393 MG/DL (42-150) HDL Cholesterol 27.4 MG/DL (40.0-60.0) Imaging Last 72 hours Impressions Myocardial Perfusion Scan Nuc Med 06/07/17 0000 Signed Impressions: Service Date/Time: Wednesday, June 07, 2017 13:12 - CONCLUSION: 1. No evidence of stress-induced ischemia. 2. Intact wall motion with 57%% ejection fraction. RISK CATEGORY: Low (<1%% Annual Mortality Rate) Herb Chino MD Chest X-Ray 06/06/17 1509 Signed Impressions: Service Date/Time: Tuesday, June 06, 2017 15:46 - CONCLUSION: No acute cardiopulmonary abnormality is identified. Wilberto Alexander MD Hospital Course Pt remained stable. CP resolved. Myocardial perfusion scan negative. CP was reproducible with pressure on left chest wall. Likely costochondritis. Will dc home on home meds. He is instructed to watch diet more closely and see Endo as scheduled re: his sugars and thyroid dz. Pt Condition on Discharge: Stable Discharge Disposition: Discharge Home Discharge Instructions DIET: Follow Instructions for: Diabetic Diet Activities you can perform: Weight Bearing as Roberta Follow up Referrals: PCP Follow-up New Medications: Liraglutide Inj (Victoza Inj) 18 Mg/3 Ml Pen 1.8 MG SQ DAILY for DM for 31 Days, #1 PEN 0 Refills Gabapentin (Neurontin) 400 Mg Cap 800 MG PO TID for neuropathy for 31 Days, CAP [Silver Sulfadia 1% Crm (50 Gm)] () 50 APPLIC/50 GM CR 1 APPLIC TOPICAL DAILY for wound for 31 Days Continued Medications: Albuterol 18 GM Inh (Ventolin Hfa 18 GM Inh) 90 Mcg/Act Aer 2 PUFF INH Q4H PRN for SHORTNESS OF BREATH, #1 INHALER [address] (Aspirin EC) 81 Mg Tabdr 81 MG PO DAILY for neuro changes, #31 TAB Cholecalciferol (Vitamin D3) 50,000 Unit Cap 25357 UNITS PO 2XWEEK for Nutritional Supplement, #1 BOTTLE 0 Refills Fluticasone-Vilanterol Inh (Breo Ellipta Inh) 200-25 Mcg/Act Inh 1 PUFF INH DAILY, #1 INHALER 0 Refills Use daily at the same time. Insulin Regular (Human) Concentrate Inj (Humulin R U-500 (Concentrate) Inj) 10, 000 Unit/20 Ml Vial for Blood Sugar Management, VIAL 0 Refills VIA INSULIN PUMP Levothyroxine (Levothyroxine) 125 Mcg Tab 250 MCG PO DAILY for Thyroid, #30 TAB 0 Refills Liothyronine Sodium (Cytomel) 5 Mcg Tablet 10 MCG PO BID Lurasidone (Latuda) 40 Mg Tab 40 MG PO DAILY, #30 TAB 0 Refills Meloxicam (Mobic) 15 Mg Tab 15 MG PO DAILY for Arthritis pain, TAB 0 Refills Take with food Metoprolol Tartrate (Metoprolol Tartrate) 100 Mg Tab 200 MG PO BID, #120 TAB 0 Refills Morphine ER (Morphine ER) 15 Mg Tab 15 MG PO BID for Pain Management, #14 TAB 0 Refills Pantoprazole (Pantoprazole) 40 Mg Tab 40 MG PO BID NEB for Reflux, #62 TAB 0 Refills Quetiapine (Seroquel) 25 Mg Tab 125 MG PO HS, #60 TAB 0 Refills Spironolactone (Spironolactone) 50 Mg Tab 100 MG PO BID, #60 TAB 0 Refills Sumatriptan (Imitrex) 100 Mg Tab 100 MG PO ONCE PRN for MIGRAINE, TAB 0 Refills If a satisfactory response has not been obtained at 2 hours, a second dose may be administered Discontinued Medications: Clindamycin (Clindamycin) 150 Mg Cap 300 MG PO QID for Infection, #80 CAP 0 Refills Sulfamethoxazole-Trimethoprim (Bactrim DS) 800-160 Mg Tab 1 TAB PO BID for Infection, #20 TAB 0 Refills Emmett Velasco MD PhD Jun 08, 2017 12:29
== END 2017-06-08 13:50 | disposition home or self-care (01) ==
LOC: PHED 14:38 → PHEDA 17:19 → PH3A 18:25
PROVIDERS: ADMIT Family Medicine; ATTEND Family Medicine
DX: R07.9 Chest pain, unspecified (principal); R00.0 Tachycardia, unspecified; E11.65 Type 2 diabetes mellitus with hyperglycemia; E03.9 Hypothyroidism, unspecified; I10 Essential (primary) hypertension; E26.01 Conn's syndrome; F31.9 Bipolar disorder, unspecified; Z79.4 Long term (current) use of insulin; I25.2 Old myocardial infarction; J45.909 Unspecified asthma, uncomplicated; G47.30 Sleep apnea, unspecified; K21.9 Gastro-esophageal reflux disease without esophagitis; E66.9 Obesity, unspecified; Z68.33 Body mass index [BMI] 33.0-33.9, adult; Z85.850 Personal history of malignant neoplasm of thyroid; Z86.73 Personal history of transient ischemic attack (TIA), and cerebral infarction without residual deficits; Z87.01 Personal history of pneumonia (recurrent)
CPT/HCPCS: 71045; 78452; 80048; 80061; 82550; 82552; 82948; 84484; 85025; 85379; 85610; 85730; 93005; 93017; 96360; 96361; 96372; 99285; A9502; G0378; J1650; J1815; J2785; J7030

== ENCOUNTER 2017-08-15 08:58 | Observation (INO) | payer OTHER ==
[~2017-08-15] VITALS: Ht 188 cm; Wt 121.0 kg
[2017-08-15] VITALS (10 sets, daily range): BP systolic 140–210; BP diastolic 83–101; PULSE 65–100; RESP 17–20; TEMP 97.6–99.4; O2SAT 93–100
[~2017-08-15 08:58] MED LIST changes: -BACT800T5 PO; -CLIN150C14 PO; +NEUR400C PO; +Silver Sulfadia 1% Crm (50 Gm) TOPICAL; +VICT18IN SQ
--- NOTE | 2017-08-15 09:53 | PD ---
HPI Chief Complaint: Numbness/Tingling Time Seen by Provider: 09:31 Travel History International Travel<30 days: No Contact w/Intl Traveler<30days: No Traveled to known affect area: No History of Present Illness HPI 51-year-old male complains of neck pain and numbness sensation on left side, left side of face, left arm. Patient states that he has history of recurrent neck pain for the past 3 months. Patient states the pain started in the neck area with radiation to the shoulder and left arm. Patient has been seen by personal physician and pain management for the neck pain. Patient had steroid injection and occipital nerve block without much relief of the pain. Patient states that the pain is usually worse with turning to the head to the right side or coughing. Patient states that he is not having complete numbness on the left side of the hand, left side of face left shoulder left arm since this morning. Patient states that the neck pain is the same. Patient denies any recent injury. Patient denies any fever chills. Patient denies any weakness of the extremity. Patient denies any chest pain or shortness of breath. Patient has history chronic back pain status post back surgery by Dr. Riggs in the past. Patient has history of hypertension, diabetes, bipolar depression, hypothyroidism. PFSH Past Medical History Hx Anticoagulant Therapy: Yes Arthritis: Yes (RHEUMATOID ) Asthma: Yes Autoimmune Disease: No Blood Disorders: No Bipolar Disorder: Yes Anxiety: Yes Depression: Yes Heart Rhythm Problems: No Cancer: Yes (THYROID) Cardiac Catheterization: Yes (2006) Cardiovascular Problems: Yes (htn on meds) High Cholesterol: Yes Chemotherapy: No Chest Pain: No Congestive Heart Failure: No COPD: No Cerebrovascular Accident: Yes (TIA) Diabetes: Yes Patient Takes Glucophage: No Diminished Hearing: No Endocrine: Yes (HYPOALDOSTORISM, THYROIDECTOMY) Gastrointestinal Disorders: Yes (GERD, GASTRIC SLEEVE) GERD: Yes Genitourinary: No Headaches: No Hepatitis: No Hiatal Hernia: No Hypertension: Yes Immune Disorder: No Implanted Vascular Access Dvce: Yes Musculoskeletal: Yes (LUMBAR FUSION/ NERVE STIM) Neurologic: Yes Psychiatric: Yes (CLAUSTROPHOBIC) Reproductive: No Respiratory: Yes Immunizations Current: Yes Migraines: No Myocardial Infarction: No Pneumonia: Yes Radiation Therapy: Yes Renal Failure: No Seizures: No Sleep Apnea: Yes (USES CPAP) Thyroid Disease: Yes Ulcer: No Tetanus Vaccination: < 5 Years Influenza Vaccination: Yes Past Surgical History Abdominal Surgery: Yes AICD: No Arteriovenous Shunt: No Body Medical Devices: LOWER BACK TITANIUM SCREWS AND RODS, SPINAL CORD STIMULATOR Cardiac Surgery: No Cholecystectomy: Yes Ear Surgery: No Endocrine Surgery: Yes (THYROIDECTOMY) Eye Surgery: No Genitourinary Surgery: Yes (2000 VASECTOMY) Gynecologic Surgery: Yes Insulin Pump: Yes Joint Replacement: No Neurologic Surgery: Yes (LUMBAR FUSION, SPINAL STIMULATOR IMPL.) Oral Surgery: No Pacemaker: No Thoracic Surgery: No Other Surgery: Yes (EX. SCAR FOOT, ARTHROSCOPY RIGHT KNEE, NEUROSTEM STENT IN AND REMOVED,) Social History Alcohol Use: Yes (occassionally ) Tobacco Use: No Substance Use: No Allergies-Medications (Allergen,Severity, Reaction): Coded Allergies: diltiazem (Verified Allergy, Mild, Edema, 05/25/17) isradipine (Verified Allergy, Mild, Edema, 05/25/17) nicardipine (Verified Allergy, Mild, Edema, 05/25/17) nifedipine (Verified Allergy, Mild, Edema, 05/25/17) nimodipine (Verified Allergy, Mild, Edema, 05/25/17) verapamil (Verified Allergy, Mild, Edema, 05/25/17) amlodipine (Verified Adverse Reaction, Intermediate, enlarged liver, ) atorvastatin (Verified Adverse Reaction, Intermediate, enlarged liver, ) pravastatin (Verified Adverse Reaction, Intermediate, enlarged liver, 08/15) simvastatin (Verified Adverse Reaction, Intermediate, enlarged liver, 08/15) cholestyramine (Verified Adverse Reaction, Mild, NAUSEA, 08/15/17) enalaprilat (Verified Adverse Reaction, Mild, Cough, 08/15/17) *MDRO Multi-Drug Resistant Organism (Verified Adverse Reaction, Unknown, ) MRSA (sputum) 10/27/16 Reported Meds & Prescriptions Reported Meds & Active Scripts Active Neurontin (Gabapentin) 400 Mg Cap 800 Mg PO TID 31 Days Morphine ER (Morphine Sulfate) 15 Mg Tab 15 Mg PO BID Pantoprazole (Pantoprazole Sodium) 40 Mg Tab 40 Mg PO BID NEB Aspirin EC (Aspirin) 81 Mg Tabdr 81 Mg PO DAILY Reported Victoza Inj (Liraglutide Inj) 18 Mg/3 Ml Pen 1.8 Mg SQ DAILY 31 Days Cytomel (Liothyronine Sodium) 5 Mcg Tablet 10 Mcg PO BID Vitamin D3 (Cholecalciferol) 50,000 Unit Cap 50,000 Units PO 2XWEEK Mobic (Meloxicam) 15 Mg Tab 15 Mg PO DAILY Take with food Seroquel (Quetiapine Fumarate) 25 Mg Tab 125 Mg PO HS Breo Ellipta Inh (Fluticasone/Vilanterol) 200-25 Mcg/Act Inh 1 Puff INH DAILY Use daily at the same time. Latuda (Lurasidone) 40 Mg Tab 40 Mg PO DAILY Spironolactone 50 Mg Tab 100 Mg PO BID Ventolin Hfa 18 GM Inh (Albuterol Sulfate) 90 Mcg/Act Aer 2 Puff INH Q4H PRN Levothyroxine (Levothyroxine Sodium) 125 Mcg Tab 250 Mcg PO DAILY Metoprolol Tartrate 100 Mg Tab 200 Mg PO BID Imitrex (Sumatriptan Succinate) 100 Mg Tab 100 Mg PO ONCE PRN If a satisfactory response has not been obtained at 2 hours, a second dose may be administered Review of Systems General / Constitutional: No: Fever Eyes: No: Visual changes HENT: No: Headaches Cardiovascular: No: Chest Pain or Discomfort Respiratory: No: Shortness of Breath Gastrointestinal: No: Abdominal Pain Genitourinary: No: Dysuria Musculoskeletal: No: Pain Skin: No Rash Neurologic: Positive: Paresthesia, No: Weakness Psychiatric: No: Depression Endocrine: No: Polydipsia Hematologic/Lymphatic: No: Easy Bruising Physical Exam Narrative GENERAL: Well-nourished, well-developed patient. SKIN: Focused skin assessment warm/dry. HEAD: Normocephalic. EYES: No scleral icterus. No injection or drainage. NECK: Supple, trachea midline. No JVD or lymphadenopathy. CARDIOVASCULAR: Regular rate and rhythm without murmurs, gallops, or rubs. RESPIRATORY: Breath sounds equal bilaterally. No accessory muscle use. GASTROINTESTINAL: Abdomen soft, non-tender, nondistended. MUSCULOSKELETAL: No cyanosis, or edema. BACK: Nontender without obvious deformity. No CVA tenderness. Neurologic exam: Patient has deficit in light touch sensation on left side of the scalp, left-sided neck, left shoulder and left arm. Motor function intact. Strength is intact. Good capillary refill. The left arm is warm. Full range of motion left arm. Data Data Last Documented VS Vital Signs Date Time Temp Pulse Resp B/P (MAP) Pulse Ox O2 Delivery O2 Flow Rate FiO2 08/15/17 09:17 89 18 98 Room Air 08/15/17 09:01 98.3 210/83 (125) Orders Orders Complete Blood Count With Diff (08/15/17 09:42) Basic Metabolic Panel (Bmp) (08/15/17 09:42) Prothrombin Time / Inr (Pt) (08/15/17 09:42) Act Partial Throm Time (Ptt) (08/15/17 09:42) Iv Access Insert/Monitor (08/15/17 09:42) Ecg Monitoring (08/15/17 09:42) Mri C Spine W/O Contrast (08/15/17 09:42) MDM Medical Decision Making Medical Screen Exam Complete: Yes Emergency Medical Condition: Yes Differential Diagnosis Differential diagnoses including radiculopathy, neuropathy, neuralgia. Narrative Course 51-year-old male with numbness of left-sided scalp, left-sided face, left sided neck and left shoulder and left arm. History of recurrent neck pain for the past 3 months. Alex Shea MD Aug 15, 2017 09:53
[2017-08-15 10:23] LABS: AUTOMATED NEUTROPHIL # 3.7 TH/MM3 (1.8-7.7); BASOPHIL % 0.6 % (0.0-2.0); EOSINOPHIL % 0.8 % (0.0-4.0); HEMATOCRIT 37.3 % (39.0-51.0); HEMOGLOBIN 12.5 GM/DL (13.0-17.0); LYMPH % 27.1 % (9.0-44.0); LYMPHOCYTE # 1.6 TH/MM3 (1.0-4.8); MEAN CELL VOLUME 85.3 FL (80.0-100.0); MEAN CORPUSCULAR HEMOGLOBIN 28.7 PG (27.0-34.0); MEAN CORPUSCULAR HGB CONC 33.6 % (32.0-36.0); MEAN PLATELET VOLUME 9.7 FL (7.0-11.0); MONOCYTE # 0.4 TH/MM3 (0-0.9); NEUT % 64.5 % (16.0-70.0); PLATELET COUNT 163 TH/MM3 (150-450); RED BLOOD COUNT 4.37 MIL/MM3 (4.50-5.90); RED CELL DISTRIBUTION WIDTH 15.7 % (11.6-17.2); WHITE BLOOD COUNT 5.7 TH/MM3 (4.0-11.0)
[2017-08-15 10:40] LABS: BICARBONATE 24.9 MEQ/L (21.0-32.0); CREATININE 0.97 MG/DL (0.60-1.30)
--- NOTE | 2017-08-15 11:28 | RADRPT ---
EXAM DATE/TIME: 08/15/2017 10:42 [facility] COMPARISON: CT CERVICAL SPINE W/O CONTRAST, October 09, 2016, 11:31. INDICATIONS : Left upper extremity numbness. MEDICAL HISTORY : Hypertension. Diabetes mellitus type 2. SURGICAL HISTORY : Fusion, lumbar. Cholecystectomy. Total knee replacement, right. Left foot. ENCOUNTER: Initial ACUITY: 1 day PAIN SCORE: 4/10 LOCATION: [facility] TECHNIQUE: Multiplanar, multisequence MRI examination of the cervical spine was performed. FINDINGS: Alignment is normal. Diffuse disc desiccation. Prominent anterior osteophytosis at C4-C6. Mild multil evel facet hypertrophic changes are noted. The spinal cord signal intensity is normal. The bone marro w signal intensity is normal. C2-C3: Uncovertebral hypertrophy and facet hypertrophy with severe left foraminal stenosis. C3-C4: Mild diffuse disc osteophyte complex and uncovertebral hypertrophy and facet hypertrophy with severe bilateral foraminal narrowing. C4-C5: The thecal sac has a normal configuration. There is no evidence of disc herniation or spinal canal s tenosis. The neural foramina are patent bilaterally. C5-C6: A diffuse disc bulge and osteophytic ridging noted with mild canal narrowing and effacement of the ve ntral thecal sac. Uncovertebral hypertrophy and moderate bilateral foraminal stenosis. C6-C7: Central disc bulge with mild bilateral foraminal narrowing, and mild canal narrowing. C7-T1: The thecal sac has a normal configuration. There is no evidence of disc herniation or spinal canal s tenosis. The neural foramina are patent bilaterally. CONCLUSION: 1. Degenerative changes are noted as above. Timmy Haynes MD on August 15, 2017 at 11:23 Board Certified Radiologist. This report was verified electronically.
[2017-08-15] MEDS ORDERED: ASPIRIN 325 MG TAB PO ONE (11:45)
[2017-08-15 11:53] LABS: INTERNATIONAL NORMALIZED RATIO 0.9 RATIO; PROTHROMBIN TIME - PATIENT 9.6 SEC (9.8-11.6)
[2017-08-15] MEDS ORDERED: GADODIAMIDE PF 287 MG/ML 20 ML VIAL (for RAD MRI) IVCONTRAST ONE (11:54)
[2017-08-15] MEDS: SODIUM CHLOR 0.9% 1000 ML INJ 1,000 ML IV SCH (11:59)
[2017-08-15] MEDS ORDERED: LORazepam 2 MG/ML VIAL IV PUSH ONE (12:00)
--- NOTE | 2017-08-15 12:10 | HHI.HP ---
HPI Service [facility] Hospitalists Primary Care Physician Emmett Velasco MD, PhD Admission Diagnosis TIA vs CVA Chief Complaint: numbness and tingling left side of face and left arm Travel History International Travel<30 Days: No Contact w/Intl Traveler <30 Da: No Traveled to Known Affected Are: No History of Present Illness This is a 51 y/o male with hypertension, hyperlipidemia, hypothyroidism, diabetes, diabetic nephropathy, rheumatoid arthritis, bipolar disorder, and drug -induced Parkinson's disease. Patient has had chronic neck pain for 3 months for which he has been treated by PCP, pain management Dr. Waldron and Dr. Riggs in the past. Initially discussing case with the ER MD was told that patient awake this AM with complete numbness on the left side of the head, left side of face left shoulder and left arm. In talking with the patient, patient reports he has been having these symptoms for three months. Typically patient experiences this numbness/ tingling only with certain positions of his head. Today the numbness and tingling has been consistent regardless of head position. Cervical spine MRI showed degenerative changes. ER MD consulted neurology. Patient denies any weakness of the extremity. Patient denies any fever, chills, chest pain, shortness of breath, slurred speech, changes in vision or facial droop. Review of Systems Constitutional: DENIES: Fatigue, Fever, Chills Eyes: DENIES: Blurred vision, Diplopia, Vision loss Respiratory: DENIES: Cough, Sputum production, Shortness of breath Cardiovascular: DENIES: Chest pain, Palpitations, Lower Extremity Edema Musculoskeletal: COMPLAINS OF: Neck pain Neurologic: COMPLAINS OF: Paresthesias, DENIES: Abnormal gait, Headache, Localized weakness, Speech Problems Psychiatric: DENIES: Anxiety, Confusion, Depression Past Family Social History Past Medical History Generalized anxiety disorder Conn's syndrome Bipolar disorder type I, mixed History of thyroid cancer Chronic kidney disease stage I Obesity Diabetes with neuropathy and nephropathy Essential hypertriglyceridemia Lumbar facet syndrome with chronic pain Esophageal reflux disorder Hypertension Hypothyroidism Metabolic syndrome Migraine headaches Obesity Panic disorder without turgor phobia Postlaminectomy syndrome Rheumatoid arthritis 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 asthmatic bronchitis Past Surgical History Cardiac catheter reportedly negative Bronchoscopy [place] [address] Colindres Cholecystectomy Circumcision due to phimosis Lumbar laminectomy Gastric bypass surgery for morbid obesity Multiple lumbar paravertebral blocks Rhizotomy Spinal neurostimulator placement Vasectomy Total thyroidectomy L4 to S1 fusion Reported Medications Neurontin (Gabapentin) 400 Mg Cap 800 Mg PO TID 31 Days Morphine ER (Morphine Sulfate) 15 Mg Tab 15 Mg PO BID Pantoprazole (Pantoprazole Sodium) 40 Mg Tab 40 Mg PO BID NEB Aspirin EC (Aspirin) 81 Mg Tabdr 81 Mg PO DAILY Victoza Inj (Liraglutide Inj) 18 Mg/3 Ml Pen 1.8 Mg SQ DAILY 31 Days Cytomel (Liothyronine Sodium) 5 Mcg Tablet 10 Mcg PO BID Vitamin D3 (Cholecalciferol) 50,000 Unit Cap 50,000 Units PO 2XWEEK Mobic (Meloxicam) 15 Mg Tab 15 Mg PO DAILY Take with food Seroquel (Quetiapine Fumarate) 25 Mg Tab 125 Mg PO HS Breo Ellipta Inh (Fluticasone/Vilanterol) 200-25 Mcg/Act Inh 1 Puff INH DAILY Use daily at the same time. Latuda (Lurasidone) 40 Mg Tab 40 Mg PO DAILY Spironolactone 50 Mg Tab 100 Mg PO BID Ventolin Hfa 18 GM Inh (Albuterol Sulfate) 90 Mcg/Act Aer 2 Puff INH Q4H PRN Levothyroxine (Levothyroxine Sodium) 125 Mcg Tab 250 Mcg PO DAILY Metoprolol Tartrate 100 Mg Tab 200 Mg PO BID Imitrex (Sumatriptan Succinate) 100 Mg Tab 100 Mg PO ONCE PRN If a satisfactory response has not been obtained at 2 hours, a second dose may be administered Allergies: Coded Allergies: diltiazem (Verified Allergy, Mild, Edema, 05/25/17) isradipine (Verified Allergy, Mild, Edema, 05/25/17) nicardipine (Verified Allergy, Mild, Edema, 05/25/17) nifedipine (Verified Allergy, Mild, Edema, 05/25/17) nimodipine (Verified Allergy, Mild, Edema, 05/25/17) verapamil (Verified Allergy, Mild, Edema, 05/25/17) amlodipine (Verified Adverse Reaction, Intermediate, enlarged liver, ) atorvastatin (Verified Adverse Reaction, Intermediate, enlarged liver, ) pravastatin (Verified Adverse Reaction, Intermediate, enlarged liver, 08/15) simvastatin (Verified Adverse Reaction, Intermediate, enlarged liver, 08/15) cholestyramine (Verified Adverse Reaction, Mild, NAUSEA, 08/15/17) enalaprilat (Verified Adverse Reaction, Mild, Cough, 08/15/17) *MDRO Multi-Drug Resistant Organism (Verified Adverse Reaction, Unknown, ) MRSA (sputum) 10/27/16 Family History Father had bipolar disorder, hypertension, hyperlipidemia, obesity, type 2 diabetes Mother has hypertension There is family history of pancreatic cancer Social History Patient is and lives with his elderly mother He has 2 children He does not smoke nor has he ever Rarely drinks any alcohol No illicit drug use Worked at [employer] previously in currently unemployed Physical Exam Vital Signs Vital Signs Date Time Temp Pulse Resp B/P (MAP) Pulse Ox O2 Delivery O2 Flow Rate FiO2 08/15/17 09:40 89 17 140/91 (107) 100 Room Air 08/15/17 09:17 89 18 98 Room Air 08/15/17 09:01 98.3 93 18 210/83 (125) 100 Physical Exam GENERAL: This is a well-nourished, well-developed patient, in no apparent distress. SKIN: No rashes, ecchymoses or lesions. Cool and dry. HEAD: Atraumatic. Normocephalic. No temporal or scalp tenderness. EYES: Extraocular motions intact. No scleral icterus. No injection or drainage. CARDIOVASCULAR: Regular rate and rhythm RESPIRATORY: Clear to auscultation. Breath sounds equal bilaterally. GASTROINTESTINAL: Abdomen soft, non-tender, nondistended. MUSCULOSKELETAL: Extremities without clubbing, cyanosis, or edema. No joint tenderness, effusion, or edema noted. No calf tenderness. Negative Homans sign bilaterally. NEUROLOGICAL: Awake and alert. No focal deficits noted. Motor and sensory grossly within normal limits. 4-5 out of 5 muscle strength in all muscle groups. Normal speech. Laboratory Laboratory Tests Test 08/15/17 09:45 08/15/17 11:00 White Blood Count 5.7 Red Blood Count 4.37 Hemoglobin 12.5 Hematocrit 37.3 Mean Corpuscular Volume 85.3 Mean Corpuscular Hemoglobin 28.7 Mean Corpuscular Hemoglobin Concent 33.6 Red Cell Distribution Width 15.7 Platelet Count 163 Mean Platelet Volume 9.7 Neutrophils (%) (Auto) 64.5 Lymphocytes (%) (Auto) 27.1 Monocytes (%) (Auto) 7.0 Eosinophils (%) (Auto) 0.8 Basophils (%) (Auto) 0.6 Neutrophils # (Auto) 3.7 Lymphocytes # (Auto) 1.6 Monocytes # (Auto) 0.4 Eosinophils # (Auto) 0.0 Basophils # (Auto) 0.0 CBC Comment DIFF FINAL Differential Comment Blood Urea Nitrogen 12 Creatinine 0.97 Random Glucose 354 Calcium Level 9.0 Sodium Level 139 Potassium Level 4.8 Chloride Level 107 Carbon Dioxide Level 24.9 Anion Gap 7 Estimat Glomerular Filtration Rate 82 Result Diagram: 08/15/1794408/15/17944 Imaging Last Impressions Cervical Spine MRI 08/15/17941 Signed Impressions: Service Date/Time: Tuesday, August 15, 2017 10:42 - CONCLUSION: 1. Degenerative changes are noted as above. MD Hitesh Cuevas VTE Risk Assessment Hitesh VTE Risk Assessment: Mod/High Risk (score >= 2) Garyrini Risk Assessment Model Point Value = 1 Point Value = 2 Point Value = 3 Point Value = 5 Age 41-60 Minor surgery BMI > 25 kg/m2 Swollen legs Varicose veins or History of unexplained or recurrent spontaneous Oral contraceptives or hormone replacement Sepsis (< 1 month) Serious lung disease, including pneumonia (< 1 month) Abnormal pulmonary function Acute myocardial infarction Congestive heart failure (< 1 month) History of inflammatory bowel disease Medical patient at bed rest Age 61-74 Arthroscopic surgery Major open surgery (> 45 min) Laparoscopic surgery (> 45 min) Malignancy Confined to bed (> 72 hours) Immobilizing plaster cast Central venous access Age >= 75 History of VTE Family history of VTE Factor V Leiden Prothrombin [id number] Lupus anticoagulant Anticardiolipin antibodies Elevated serum homocysteine Heparin-induced thrombocytopenia Other congenital or acquired thrombophilia Stroke (< 1 month) Elective arthroplasty Hip, pelvis, or leg fracture Acute spinal cord injury (< 1 month) Prophylaxis Regimen Total Risk Factor Score Risk Level Prophylaxis Regimen 0-1 Low Early ambulation 2 Moderate Order ONE of the following: *Sequential Compression Device (SCD) *Heparin 5000 units SQ BID 3-4 Higher Order ONE of the following medications: *Heparin 5000 units SQ TID *Enoxaparin/Lovenox 40 mg SQ daily (WT < 150 kg, CrCl > 30 mL/min) *Enoxaparin/Lovenox 30 mg SQ daily (WT < 150 kg, CrCl > 10-29 mL/min) *Enoxaparin/Lovenox 30 mg SQ BID (WT < 150 kg, CrCl > 30 mL/min) AND/OR *Sequential Compression Device (SCD) 5 or more Highest Order ONE of the following medications: *Heparin 5000 units SQ TID (Preferred with Epidurals) *Enoxaparin/Lovenox 40 mg SQ daily (WT < 150 kg, CrCl > 30 mL/min) *Enoxaparin/Lovenox 30 mg SQ daily (WT < 150 kg, CrCl > 10-29 mL/min) *Enoxaparin/Lovenox 30 mg SQ BID (WT < 150 kg, CrCl > 30 mL/min) AND *Sequential Compression Device (SCD) Assessment and Plan Problem List: (1) Numbness and tingling ICD Codes: R20.0 - Anesthesia of skin; R20.2 - Paresthesia of skin Plan: Unilateral numbness and tingling of left hand, left side of face and left shoulder R/O TIA/CVA - Pt is a 51 y/o WM with hypertension, hyperlipidemia, hypothyroidism, diabetes , diabetic nephropathy, rheumatoid arthritis, bipolar disorder, and drug-induced Parkinson's disease. - Patient has had chronic neck pain for 3 months has has been treated by PCP, pain management and Dr. Riggs. - Cervical spine MRI showed degenerative changes - aspirin daily - ER MD consulted neurology - MRA brain normal exam for patient this age - MRI brain no acute disease - Neck MRA normal exam - Echocardiogram, Holter - continuous telemetry -If cleared by neurology plan to discharge patient home tomorrow and with recommendations for outpatient neurosurgery follow-up (2) Hypothyroid ICD Codes: E03.9 - Hypothyroidism, unspecified Status: Chronic Plan: - Continue home dose of Synthroid and Cytomel (3) HTN (hypertension) ICD Codes: I10 - Essential (primary) hypertension Status: Chronic Plan: - Cont. home meds (4) Drug-induced Parkinson's disease ICD Codes: G21.19 - Other drug induced secondary parkinsonism Status: Chronic Plan: Chronic (5) Bipolar depression ICD Codes: F31.30 - Bipolar depression Status: Chronic Plan: Continue home Latuda 40 mg PO daily and Seroquel 125 mg QHS (6) Diabetes mellitus type 2, insulin dependent ICD Codes: E11.9 - Diabetes mellitus type 2, insulin dependent; Z79.4 - group home (current) use of insulin Status: Chronic Plan: Patient takes Victoza at home, none formulary at [facility] [place] accuchecks ACHS with SSI coverage Assessment and Plan Patient examined. Assessment and plan formulated with Teresa Saucedo PA-C. I agree with the above. Teresa Saucedo Aug 15, 2017 12:10 Camron Tiwari DO Aug 17, 2017 05:44
[2017-08-15] MEDS: ASPIRIN 325 MG TAB PO SCH (12:15)
[2017-08-15] MEDS ORDERED: ENALAPRILAT 1.25 MG/ML VIAL IV PUSH PRN (12:15)
[2017-08-15] MEDS ORDERED: SODIUM CHLORIDE 0.9% FLUSH 10 ML FLUSH IV FLUSH PRN (12:15)
--- NOTE | 2017-08-15 13:00 | RADRPT ---
EXAM DATE/TIME: 08/15/2017 12:06 [facility] COMPARISON: No previous studies available for comparison. INDICATIONS : Left facial numbness. CONTRAST: 20 cc Omniscan (gadodiamide) IV MEDICAL HISTORY : Carcinoma, thyroid. Hypertension. Diabetes mellitus type 2. SURGICAL HISTORY : Fusion, lumbar. Cholecystectomy. Thyroidectomy. ENCOUNTER: Initial ACUITY: 1 day PAIN SCORE: 0/10 LOCATION: cranial Percent stenosis is calculated using the diameter of the stenotic region over the diameter of the nor mal distal internal carotid artery. TECHNIQUE: Bolus infused MRA of the extracranial circulation was performed using a neurovascular coil. Post pro cessing was performed including rotating subvolume maximum intensity projections of each carotid evelin ry, rotating full volume maximum intensity projections of both carotid arteries, sagittal and coronal sliding thin slab reformations of each carotid artery, and left oblique sliding thin slab reformatio n through the aortic arch to include the origin of the arch branch vessels. FINDINGS: AORTIC ARCH: The right brachiocephalic and left common carotid artery arise from a common trunk. This is a normal tear. No evidence of ostial narrowing. RIGHT CAROTID: The common carotid artery is intact. The carotid bulb has a normal configuration without ulceration or narrowing. The internal carotid artery lumen is smooth without stenosis. The external carotid ar sebas is intact. LEFT CAROTID: The common carotid artery is intact. The carotid bulb has a normal configuration without ulceration or narrowing. The internal carotid artery lumen is smooth without stenosis. The external carotid ar sebas is intact. VERTEBRALS: The vertebral arteries have a symmetric diameter. No stenotic lesions are seen. CONCLUSION: Normal examination. Wilberto Brizuela MD on August 15, 2017 at 12:55 Board Certified Radiologist. This report was verified electronically.
--- NOTE | 2017-08-15 13:00 | RADRPT ---
EXAM DATE/TIME: 08/15/2017 12:06 [facility] COMPARISON: MRI BRAIN W/O CONTRAST, August 15, 2017, 12:06. MRA BRAIN W/O CONTRAST, July 10, 2016, 19:57. INDICATIONS : Left facial numbness. MEDICAL HISTORY : Carcinoma, thyroid. Diabetes mellitus type 2. Hypertension. SURGICAL HISTORY : Cholecystectomy. Fusion, lumbar. Thyroidectomy. ENCOUNTER: Initial ACUITY: 1 day PAIN SCORE: 0/10 LOCATION: cranial Please note a normal MRA of the brain does not entirely exclude the possibility of a small aneurysm, nor the possibility of distal intracranial vessel disease. TECHNIQUE: 3D time of flight MRA was performed. Source images, multiplanar STS MIP, and 3D volume MIP reconstru ctions were reviewed. FINDINGS: There is excellent visualization of the major intracranial arteries out to the second-order branch ve ssels. There is no evidence for aneurysm, vessel truncation or stenosis, and no evidence for vascula r malformation. origin of the right posterior cerebral artery. CONCLUSION: Normal examination for a patient of this age. Timmy Haynes MD on August 15, 2017 at 12:55 Board Certified Radiologist. This report was verified electronically.
--- NOTE | 2017-08-15 13:01 | RADRPT ---
EXAM DATE/TIME: 08/15/2017 12:06 [facility] COMPARISON: MRA BRAIN W/O CONTRAST, August 15, 2017, 12:06. MRI BRAIN W/O CONTRAST, July 10, 2016, 19:57. INDICATIONS : Left upper extremity numbness. MEDICAL HISTORY : Hypertension. Carcinoma, thyroid. Diabetes mellitus type 2. SURGICAL HISTORY : Fusion, lumbar. Cholecystectomy. Thyroidectomy. Left foot. ENCOUNTER: Initial ACUITY: 1 day PAIN SCORE: 0/10 LOCATION: cranial TECHNIQUE: Multiplanar, multisequence MRI of the brain was performed without contrast. FINDINGS: Diffusion weighted images demonstrate no evidence for acute infarction. 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 There is mild volume loss. No signs of intracranial hemorrhage, acut e infarct, or mass. No CONCLUSION: No acute disease. A Timmy Haynes MD on August 15, 2017 at 12:57 Board Certified Radiologist. This report was verified electronically.
[2017-08-15] MEDS: FLUTICASONE 200 MCG/VILANTEROL 25 MCG INHALER INH SCH (13:07)
[2017-08-15] MEDS ORDERED: GABA600T PO (16:17)
[2017-08-15] MEDS: GABAPENTIN 300 MG CAP PO SCH (20:36)
[2017-08-15] MEDS: SPIRONOLACTONE 100 MG TAB PO SCH (20:36)
[2017-08-15] MEDS: MORPHINE SULFATE 15 MG CONTROLLED RELEASE TAB PO SCH (20:36)
[2017-08-15] MEDS: LIOTHYRONINE SODIUM 5 MCG TAB PO SCH (20:36)
[2017-08-15] MEDS: METOPROLOL TARTRATE 100 MG TAB PO SCH (20:37)
[2017-08-15] MEDS: PANTOPRAZOLE SOD 40 MG DELAYED RELEASE TAB PO SCH (20:37)
[2017-08-15] MEDS: INSULIN ASPART SUPPLEMENTAL SCALE SQ SCH ×2 (20:40→21:00)
[2017-08-15] MEDS ORDERED: ATORVASTATIN 10 MG TAB PO SCH (21:00)
[2017-08-15] MEDS ORDERED: QUEtiapine FUMARATE 25 MG TAB PO SCH (21:00)
[2017-08-15] MEDS: SODIUM CHLORIDE 0.9% FLUSH 10 ML FLUSH IV FLUSH SCH (21:00)
[2017-08-15] MEDS ORDERED: SPIRONOLACTONE 50 MG TAB PO SCH (21:00)
--- NOTE | 2017-08-16 00:24 | EKG ---
Date Performed: 08/15/2017 Time Performed: 12:55:41 PTAGE: 51 years EKG: Sinus rhythm NORMAL ECG PREVIOUS TRACING : 06/07/2017 06.25 Compared to previous tracing, previous read as atrial pace maker but most likely sinus rhythm, no significant change DOCTOR: John El Interpretating Date/Time 08/16/2017 00:22:28
[2017-08-16 03:36] VITALS: BP 154/89; PULSE 67; RESP 18; TEMP 98.1; O2SAT 97
[2017-08-16] MEDS: SODIUM CHLOR 0.9% 1000 ML INJ 1,000 ML IV SCH ×2 (04:17→07:45)
[2017-08-16] MEDS ORDERED: LEVOTHYROXINE SODIUM 125 MCG TAB PO SCH (06:00)
[2017-08-16 07:25] VITALS: PULSE 68
[2017-08-16 07:56] LABS: AUTOMATED NEUTROPHIL # 3.4 TH/MM3 (1.8-7.7); BASOPHIL % 0.3 % (0.0-2.0); EOSINOPHIL % 0.5 % (0.0-4.0); HEMATOCRIT 35.9 % (39.0-51.0); HEMOGLOBIN 12.1 GM/DL (13.0-17.0); LYMPH % 30.9 % (9.0-44.0); LYMPHOCYTE # 1.7 TH/MM3 (1.0-4.8); MEAN CELL VOLUME 83.7 FL (80.0-100.0); MEAN CORPUSCULAR HEMOGLOBIN 28.2 PG (27.0-34.0); MEAN CORPUSCULAR HGB CONC 33.7 % (32.0-36.0); MEAN PLATELET VOLUME 9.4 FL (7.0-11.0); MONO % 7.2 % (0.0-8.0); MONOCYTE # 0.4 TH/MM3 (0-0.9); NEUT % 61.1 % (16.0-70.0); PLATELET COUNT 126 TH/MM3 (150-450); RED BLOOD COUNT 4.29 MIL/MM3 (4.50-5.90); RED CELL DISTRIBUTION WIDTH 15.5 % (11.6-17.2); WHITE BLOOD COUNT 5.6 TH/MM3 (4.0-11.0)
[2017-08-16] MEDS: INSULIN ASPART SUPPLEMENTAL SCALE SQ SCH ×2 (08:00→11:59)
[2017-08-16 08:29] LABS: BICARBONATE 25.4 MEQ/L (21.0-32.0); CALCIUM 8.9 MG/DL (8.5-10.1); CREATININE 0.79 MG/DL (0.60-1.30)
[2017-08-16 08:32] LABS: CHOLESTEROL/ HDL RATIO 6.79 RATIO; HDL CHOLESTEROL 37.7 MG/DL (40.0-60.0)
[2017-08-16] MEDS ORDERED: LURASIDONE 40 MG TAB PO SCH ×2 (09:00)
[2017-08-16] MEDS ORDERED: MELOXICAM 15 MG TAB PO SCH (09:00)
[2017-08-16] MEDS: SODIUM CHLORIDE 0.9% FLUSH 10 ML FLUSH IV FLUSH SCH (09:00)
[2017-08-16] MEDS: SPIRONOLACTONE 100 MG TAB PO SCH (10:15)
[2017-08-16] MEDS: PANTOPRAZOLE SOD 40 MG DELAYED RELEASE TAB PO SCH (10:16)
[2017-08-16] MEDS: GABAPENTIN 300 MG CAP PO SCH (10:16)
[2017-08-16] MEDS: METOPROLOL TARTRATE 100 MG TAB PO SCH (10:17)
[2017-08-16] MEDS: ASPIRIN 325 MG TAB PO SCH (10:17)
[2017-08-16] MEDS: LIOTHYRONINE SODIUM 5 MCG TAB PO SCH (10:19)
[2017-08-16] MEDS: MORPHINE SULFATE 15 MG CONTROLLED RELEASE TAB PO SCH (10:20)
[2017-08-16] MEDS: FLUTICASONE 200 MCG/VILANTEROL 25 MCG INHALER INH SCH (10:20)
[2017-08-16] MEDS ORDERED: LIPI10TA PO (10:59)
--- NOTE | 2017-08-16 11:06 | HHI.DS ---
Discharge Summary Admission Date Aug 15, 2017 at 11:53 Discharge Date: Aug 16, 2017 Admitting Diagnosis TIA vs CVA (1) Numbness and tingling Diagnosis: Principal ICD Codes: R20.0 - Anesthesia of skin; R20.2 - Paresthesia of skin (2) Hypothyroid Diagnosis: Secondary ICD Codes: E03.9 - Hypothyroidism, unspecified Status: Chronic (3) HTN (hypertension) ICD Codes: I10 - Essential (primary) hypertension Status: Chronic (4) Drug-induced Parkinson's disease Diagnosis: Secondary ICD Codes: G21.19 - Other drug induced secondary parkinsonism Status: Chronic (5) Bipolar depression Diagnosis: Secondary ICD Codes: F31.30 - Bipolar depression Status: Chronic (6) Diabetes mellitus type 2, insulin dependent Diagnosis: Secondary ICD Codes: E11.9 - Diabetes mellitus type 2, insulin dependent; 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 Fernandez, Neurology Procedures none Brief History This is a 51 y/o male with hypertension, hyperlipidemia, hypothyroidism, diabetes, diabetic nephropathy, rheumatoid arthritis, bipolar disorder, and drug -induced Parkinson's disease. Patient has had chronic neck pain for 3 months for which he has been treated by PCP, pain management Dr. Waldron and Dr. Riggs in the past. Initially discussing case with the ER MD was told that patient awake this AM with complete numbness on the left side of the head, left side of face left shoulder and left arm. In talking with the patient, patient reports he has been having these symptoms for three months. Typically patient experiences this numbness/ tingling only with certain positions of his head. Today the numbness and tingling has been consistent regardless of head position. Cervical spine MRI showed degenerative changes. ER MD consulted neurology. Patient denies any weakness of the extremity. Patient denies any fever, chills, chest pain, shortness of breath, slurred speech, changes in vision or facial droop. CBC/BMP: 08/16/17 0633 08/16/17 0633 Significant Findings Laboratory Tests Test 08/15/17 09:45 08/15/17 11:00 08/16/17 06:33 Red Blood Count 4.37 MIL/MM3 (4.50-5.90) 4.29 MIL/MM3 (4.50-5.90) Hemoglobin 12.5 GM/DL (13.0-17.0) 12.1 GM/DL (13.0-17.0) Hematocrit 37.3 % (39.0-51.0) 35.9 % (39.0-51.0) Random Glucose 354 MG/DL (74-106) 245 MG/DL (74-106) Estimat Glomerular Filtration Rate 82 ML/MIN (>89) Prothrombin Time 9.6 SEC (9.8-11.6) Activated Partial Thromboplast Time 22.4 SEC (24.3-30.1) Platelet Count 126 TH/MM3 (150-450) Triglycerides Level 336 MG/DL (42-150) Cholesterol Level 256 MG/DL (120-200) LDL Cholesterol 151 MG/DL (0-99) HDL Cholesterol 37.7 MG/DL (40.0-60.0) Imaging Last Impressions Neck Magnetic Resonance Angiography [id number]/15/171140 Signed Impressions: Service Date/Time: Tuesday, August 15, 2017 12:06 - CONCLUSION: Normal examination. Wilberto Brizuela MD Head Magnetic Resonance Angiography 08/15/171140 Signed Impressions: Service Date/Time: Tuesday, August 15, 2017 12:06 - CONCLUSION: Normal examination for a patient of this age. Timmy Haynes MD Brain MRI 08/15/17 114 Signed Impressions: Service Date/Time: Tuesday, August 15, 2017 12:06 - CONCLUSION: No acute disease. A Timmy Haynes MD Cervical Spine MRI 08/15/17 0942 Signed Impressions: Service Date/Time: Tuesday, August 15, 2017 10:42 - CONCLUSION: 1. Degenerative changes are noted as above. Timmy Haynes MD PE at Discharge GENERAL: This is a well-nourished, well-developed patient, in no apparent distress. SKIN: No rashes, ecchymoses or lesions. Cool and dry. HEAD: Atraumatic. Normocephalic. No temporal or scalp tenderness. EYES: Extraocular motions intact. No scleral icterus. No injection or drainage. CARDIOVASCULAR: Regular rate and rhythm RESPIRATORY: Clear to auscultation. Breath sounds equal bilaterally. GASTROINTESTINAL: Abdomen soft, non-tender, nondistended. MUSCULOSKELETAL: Extremities without clubbing, cyanosis, or edema. No joint tenderness, effusion, or edema noted. No calf tenderness. Negative Homans sign bilaterally. NEUROLOGICAL: Awake and alert. No focal deficits noted. Motor and sensory grossly within normal limits. 4-5 out of 5 muscle strength in all muscle groups. Normal speech. Hospital Course Numbness and tingling - Pt is a 51 y/o WM with hypertension, hyperlipidemia, hypothyroidism, diabetes , diabetic nephropathy, rheumatoid arthritis, bipolar disorder, and drug-induced Parkinson's disease. - Patient has had chronic neck pain for 3 months has has been treated by PCP, pain management and Dr. Riggs. - Cervical spine MRI showed degenerative changes - aspirin daily - ER MD consulted neurology - MRA brain normal exam for patient this age - MRI brain no acute disease - Neck MRA normal exam - Echocardiogram, Holter - continuous telemetry - (08/16) Dr. Tiwari discussed the case with Dr. Fernandez. Dr. Fernandez cleared for patient for DC from neurology standpoint agrees with outpatient Neurosurgery follow up -Patient and his ex- discussed his symptoms and he is concerned regarding multiple sclerosis. - MRI of the brain with contrast ordered and revealed stable focal encephalomalacia in the right cerebral hemisphere consistent with remote infarct. No acute abnormality or interval change. Specifically no acute infarction hemorrhage or mass -Patient has seen Dr. Phelps in the past for neurology recommend he follow- up outpatient after discharge due to his concerns with increasing generalized weakness and falling -Patient also noted to have lower extremity muscle wasting as well as large abdomen with striae concerns for possible Dionne's syndrome offered urine 24 hour free cortisol patient refused and would rather have this done outpatient. Recommend patient follow-up with his PCP for further testing evaluation and possible urine 24 hour free cortisol Hypothyroid - Continue home dose of Synthroid and Cytomel HTN (hypertension) - Cont. home meds Drug-induced Parkinson's disease Chronic Bipolar depression Continue home Latuda 40 mg PO daily and Seroquel 125 mg QHS Diabetes mellitus type 2, insulin dependent Patient takes Victoza at home, [place] [facility] [place] SSI [place] Hyperlipidemia Patient total cholesterol 256, LDL 151, HDL 37, Triglycerides 336 Recommend patient start high dose statin Patient feels that he is allergic to statins due to his "enlarged liver." will start patient on Lipitor 10 mg PO QHS Patient to follow up with PCP for further management of cholesterol Also recommend patient eat low cholesterol diet and weight management Pt Condition on Discharge: Stable Discharge Disposition: Discharge Home Discharge Instructions DIET: Follow Instructions for: Heart Healthy Diet, Diabetic Diet, Weight Management Activities you can perform: Regular-No Restrictions Follow up Referrals: Neurosurgery - 10 Days with Hang Riggs MD PCP Follow-up - [address] Mejia New Medications: Atorvastatin (Lipitor) 10 Mg Tab 10 MG PO HS for Cholesterol Management, #30 TAB 0 Refills Continued Medications: Albuterol 18 GM Inh (Ventolin Hfa 18 GM Inh) 90 Mcg/Act Aer 2 PUFF INH Q4H PRN for SHORTNESS OF BREATH, #1 INHALER [address] (Aspirin EC) 81 Mg Tabdr 81 MG PO DAILY for neuro changes, #31 TAB Cholecalciferol (Vitamin D3) 50,000 Unit Cap 96006 UNITS PO 2XWEEK for Nutritional Supplement, #1 BOTTLE 0 Refills Fluticasone-Vilanterol Inh (Breo Ellipta Inh) 200-25 Mcg/Act Inh 1 PUFF INH DAILY, #1 INHALER 0 Refills Use daily at the same time. Gabapentin (Gabapentin) 600 Mg Tab 600 MG PO BID, #60 TAB 0 Refills Levothyroxine (Levothyroxine) 125 Mcg Tab 250 MCG PO DAILY for Thyroid, #30 TAB 0 Refills Liothyronine Sodium (Cytomel) 5 Mcg Tablet 10 MCG PO BID Liraglutide Inj (Victoza Inj) 18 Mg/3 Ml Pen 1.8 MG SQ DAILY for DM for 31 Days, #1 PEN 0 Refills Lurasidone (Latuda) 40 Mg Tab 80 MG PO DAILY, #30 TAB 0 Refills Meloxicam (Mobic) 15 Mg Tab 15 MG PO DAILY for Arthritis pain, TAB 0 Refills Take with food Metoprolol Tartrate (Metoprolol Tartrate) 100 Mg Tab 200 MG PO BID, #120 TAB 0 Refills Morphine ER (Morphine ER) 15 Mg Tab 15 MG PO BID for Pain Management, #14 TAB 0 Refills Pantoprazole (Pantoprazole) 40 Mg Tab 40 MG PO BID NEB for Reflux, #62 TAB 0 Refills Quetiapine (Seroquel) 25 Mg Tab 125 MG PO HS, #60 TAB 0 Refills Spironolactone (Spironolactone) 50 Mg Tab 100 MG PO BID, #60 TAB 0 Refills Sumatriptan (Imitrex) 100 Mg Tab 100 MG PO ONCE PRN for MIGRAINE, TAB 0 Refills If a satisfactory response has not been obtained at 2 hours, a second dose may be administered Additional Information Patient examined. Assessment and plan formulated with Teresa Saucedo PA-C. I agree with the above. 08/16 pt expressed concern that his symptoms were d/t multiple sclerosis. obtained repeat MRI brain with contract --> NO evidence of MS lesions. Pt did NOT express c/o symptoms c/w optic neuritis. No c/o sudden vision loss or blurring. Also NO c/o limb weakness. Pt's c/o facial/arm numbness c/w pt's known cervical disc disease. Pt noted to have proximal muscle wasting and weakness. Case d/w pt's PCP, Dr. Velasco. Pt has known Conn's syndrome and receiving treatment. Teresa Saucedo Aug 16, 2017 11:06 Camron Tiwari DO Aug 17, 2017 05:48
--- NOTE | 2017-08-16 11:07 | HHI.DCPOC ---
Discharge Care Plan Diagnosis: (1) Numbness and tingling Goals to Promote Your Health * To prevent worsening of your condition and complications * To maintain your health at the optimal level Directions to Meet Your Goals Take your medications as prescribed Follow your dietary instruction Follow activity as directed Keep your appointments as scheduled Take your immunizations and boosters as scheduled If your symptoms worsen call your PCP, if no PCP go to Urgent Care Center or Emergency Room Smoking is Dangerous to Your Health. Avoid second hand smoke Call the 24-hour hour crisis hotline for domestic abuse at Teresa Saucedo Aug 16, 2017 11:07 Camron Tiwari DO Aug 17, 2017 05:48
--- NOTE | 2017-08-16 12:40 | MB ---
cc: Darnell Fernandez MD, PhD Darnell Fernandez MD PhD DATE: 08/15/2017 REASON FOR CONSULTATION: Left facial and left arm numbness. HISTORY OF PRESENT ILLNESS: Mr. Zavala is a 51-year-old man who states he has a long history of intermittent numbness which involves the left side of the neck as well as the left face and left shoulder, which is dependent on neck position. If he turns his neck a certain way, he experiences this feeling. However, today he came to the ER because he developed sudden onset of numbness involving the left face, the left shoulder, left neck and left arm. He had no weakness, no double vision. This was not dependent on neck position and his symptoms have now resolved. PAST MEDICAL HISTORY: Cervical spondylosis, anxiety disorder, bipolar, history of thyroid cancer, chronic kidney disease, diabetes with neuropathy and nephropathy, hypertriglyceridemia, lumbar degenerative disk disease, esophageal reflux, hypertension, hypothyroidism, Conn syndrome. PAST SURGICAL HISTORY: Normal cardiac catheterization in the past, cholecystectomy, lumbar laminectomy, gastric bypass surgery for obesity, multiple lumbar paravertebral blocks, rhizotomy, spinal stimulator placed, vasectomy, thyroidectomy, L4-S1 fusion. MEDICATIONS AT HOME: Neurontin, morphine, pantoprazole, aspirin, Victoza, Cytomel, vitamin D3, Mobic, Seroquel, Breo Ellipta, Latuda, spironolactone, Ventolin, levothyroxine, metoprolol, Imitrex. ALLERGIES: DILTIAZEM, ____, NICARDIPINE, NIFEDIPINE, NIMODIPINE, VERAPAMIL, AMLODIPINE, ATORVASTATIN, PRAVASTATIN, SIMVASTATIN, CHOLESTYRAMINE, ENALAPRIL, ____ NEUROLOGICAL EXAMINATION: Blood pressure is 160/86, pulse 93, respiratory rate is 18, temperature 98 degrees. Higher cortical functions are normal. Cranial nerves intact. Motor exam is normal with no drift. Fine motor skills are normal. Strength is intact. Reflexes are symmetric. IMAGING STUDIES: MRI of the brain is normal with no sign of acute stroke. MR angiogram of the brain is normal. MRA of the neck normal without any significant stenosis. Cervical spine MRI: Mild disk disease is seen at C3-C4 with bilateral neural foraminal encroachment at C4-C5. This is normal. C5-C6 shows diffuse disk bulging with osteophytes effacing the ventral thecal sac with bilateral neural foraminal encroachment, C6-C7 central disk bulge with minimal bilateral foraminal encroachment, C7-T1 is normal. LABORATORY DATA: White count 5700, hemoglobin 12.5, hematocrit 37%, platelet count 163,000. Sodium 139, potassium 4.8, chloride 107, CO2 of 25, BUN is 12, creatinine 0.97, GFR is 82, glucose 354. PT 9.6, INR 0.9, APTT 22.4. CARDIOLOGY STUDIES: His EKG is normal sinus rhythm with a rate of 84. IMPRESSION: The symptoms he experienced were most likely related to cervical spondylosis with cervical radiculopathy and occipital neuralgia. There is no sign for transient ischemic attack or stroke. RECOMMENDATION: The patient is stable for discharge tomorrow morning from the neurologic standpoint. I suggest outpatient physical therapy for cervical spondylosis. Darnell Fernandez MD, PhD BRITT// , 09:43 PM , 10:12 PM
[2017-08-16 12:59] LABS: HEMOGLOBIN A1C 11.7 % (4.3-6.0)
[2017-08-16 13:22] VITALS: BP 169/86; PULSE 73; RESP 20; TEMP 98.8; O2SAT 18
[2017-08-16 15:18] VITALS: BP 153/98; PULSE 68; RESP 18; TEMP 99.1; O2SAT 97
[2017-08-16] MEDS ORDERED: GADODIAMIDE PF 287 MG/ML 20 ML VIAL (for RAD MRI) IVCONTRAST ONE (15:30)
--- NOTE | 2017-08-16 15:57 | RADRPT ---
EXAM DATE/TIME: 08/16/2017 15:25 [facility] COMPARISON: MRI BRAIN W/O CONTRAST, August 15, 2017, 12:06. INDICATIONS : Left facial numbness. CONTRAST: 20 cc Omniscan (gadodiamide) IV MEDICAL HISTORY : Carcinoma, thyroid. Diabetes mellitus type 2. Hypertension. SURGICAL HISTORY : Thyroidectomy. Fusion, lumbar. Cholecystectomy. ENCOUNTER: Initial ACUITY: 2 day PAIN SCORE: 0/10 LOCATION: cranial TECHNIQUE: Multiplanar, multisequence MRI of the brain was performed both prior to and following the administrat ion of paramagnetic contrast. FINDINGS: CEREBRUM: The ventricles are normal for age. No evidence of midline shift, mass lesion, hemorrhage or acute in farction. No extraaxial fluid collections are seen. The pituitary gland and suprasellar cistern are normal in configuration. WHITE MATTER: No significant signal abnormalities are seen in the white matter. POSTERIOR FOSSA: Stable focal encephalomalacia in the right cerebellar hemisphere. The cerebellum and brainstem are in tact. The 4th ventricle is midline. The cerebellopontine angle is unremarkable. The cerebellar tons ils are normal in position. DIFFUSION IMAGING: No focal areas of restricted diffusion are seen. No evidence of acute infarction. EXTRACRANIAL: The visualized portions of the orbits and paranasal sinuses are unremarkable. POST-CONTRAST: No abnormal areas of parenchymal or dural enhancement. No evidence of blood-brain barrier breakdown. CONCLUSION: 1. Stable focal encephalomalacia in the right cerebellar hemisphere consistent with remote or infarct . 2. No acute abnormality or interval change. Specifically, no acute infarction, hemorrhage or mass. Juan David Estrada MD on August 16, 2017 at 15:52 Board Certified Radiologist. This report was verified electronically.
--- NOTE | 2017-08-16 16:56 | ECHRPT ---
Indication: CVA/TIA CONCLUSIONS The left ventricular systolic function is normal with an estimated ejection fraction in the range of 55-60%. There is trace tricuspid valve regurgitation. BP: / HR: Rhythm: MEASUREMENTS (Male / Female) Normal Values Technical Quality: 2D ECHO LV Diastolic Diameter PLAX 5.0 cm 4.2 - 5.9 / 3.9 - 5.3 cm LV Systolic Diameter PLAX 3.7 cm IVS Diastolic Thickness 1.0 cm 0.6 - 1.0 / 0.6 - 0.9 cm LVPW Diastolic Thickness 0.8 cm 0.6 - 1.0 / 0.6 - 0.9 cm LV Relative Wall Thickness 0.4 RV Internal Dim ED PLAX 2.3 cm LA Systolic Diameter LX 3.9 cm 3.0 - 4.0 / 2.7 - 3.8 cm M-MODE Aortic Root Diameter MM 3.9 cm AV Cusp Separation MM 2.2 cm DOPPLER Mitral E Point Velocity 96.5 cm/s Mitral A Point Velocity 66.9 cm/s Mitral E to A Ratio 1.4 TR Peak Velocity 172.0 cm/s TR Peak Gradient 11.8 mmHg Right Atrial Pressure 10.0 mmHg Pulmonary Artery Systolic Pressu 21.8 mmHg Right Ventricular Systolic Press 21.8 mmHg FINDINGS LEFT VENTRICLE Normal left ventricular size. Wall thickness is normal. The left ventricular systolic function is normal with an estimated ejection fraction in the range of 55-60%. RIGHT VENTRICLE Normal right ventricular size and systolic function. LEFT ATRIUM The left atrial size is normal. RIGHT ATRIUM The right atrial size is normal. ATRIAL SEPTUM Normal atrial septal thickness AORTA The aortic root and proximal ascending aorta are normal in size on limited imaging. MITRAL VALVE Structurally normal mitral valve. No mitral valve stenosis or regurgitation. AORTIC VALVE Trileaflet aortic valve. No aortic valve stenosis or regurgitation. TRICUSPID VALVE Structurally normal tricuspid valve. There is trace tricuspid valve regurgitation. No tricuspid valve stenosis. PULMONARY VALVE The pulmonary valve is not well visualized. VESSELS The inferior vena cava is normal in size. PERICARDIUM No pericardial effusion. John El DO (Electronically Signed) Final Date:16 August 2017 16:55
--- NOTE | 2017-08-17 21:33 | HM ---
Date Performed: 08/15/2017 Time Performed: 16:58:00 HOOKUP DATE: 08/15/17 04:58:00 PM Sat ANALYSIS START TIME: 08/15/2017 5:03:00 PM ANALYSIS END TIME: 08/16/2017 3:22:15 PM PATIENT AGE: 51 PATIENT HEIGHT: 74 PATIENT WEIGHT: 266 DRUG LIST: ROOM # [id number] PATIENT DIAGNOSIS: TIA VS. CVA TEST NARRATIVE: The patient's average heart rate was 74 BPM. Heart rates greater than 120 B PM were noted < 1% of the time. Heart rates less than 50 BPM were noted < 1% of the time. No shannon ses exceeding 2.0 seconds were noted. 113 ventricular ectopics, which represented < 1% of the tot al beat count, were noted. The highest ventricular ectopic frequency occurred from 12:00 AM to 01:00 AM Sun. During this time 23 VE(s) occurred. Ventricular ectopics were observed as 113 isolated jaime t(s) only. No couplets or runs were noted. 1 supraventricular ectopics, which represented < 1% o f the total beat count, were noted. The highest supraventricular ectopic frequency occurred from 03: 00 AM to 04:00 AM Sun. During this time 1 SVE(s) occurred. No episodes of ST depression (defined as -1.0 mm or more) were noted in channel 1. No episodes of ST depression (defined as -1.0 mm or mo re) were noted in channel 2. No episodes of ST depression (defined as -1.0 mm or more) were noted in channel 3. no diary returned... very poor quality tracing TEST INTERPRETATION: 1. Predominant underlying rhythm is sinus 2. Occasional PAC and PVC 3. No v entricular or supraventricular tachyarrythmias noted 4. NO pauses of > 2 sec noted Signed by : Vinny Mederos
== END 2017-08-16 17:59 | disposition home or self-care (01) ==
LOC: NEPC 08:58 → NEDA 11:53 → NEPHCDU 13:35
PROVIDERS: ADMIT Hospitalist; ATTEND Hospitalist
DX: R20.0 Anesthesia of skin (principal); R20.2 Paresthesia of skin; I12.9 Hypertensive chronic kidney disease with stage 1 through stage 4 chronic kidney disease, or unspecified chronic kidney disease; N18.1 Chronic kidney disease, stage 1; E11.22 Type 2 diabetes mellitus with diabetic chronic kidney disease; E11.21 Type 2 diabetes mellitus with diabetic nephropathy; E78.1 Pure hyperglyceridemia; E89.0 Postprocedural hypothyroidism; E11.40 Type 2 diabetes mellitus with diabetic neuropathy, unspecified; G21.19 Other drug induced secondary parkinsonism; F31.9 Bipolar disorder, unspecified; M54.2 Cervicalgia; G89.29 Other chronic pain; F41.1 Generalized anxiety disorder; M06.9 Rheumatoid arthritis, unspecified; E26.01 Conn's syndrome; K21.9 Gastro-esophageal reflux disease without esophagitis; E88.81 Metabolic syndrome and other insulin resistance; J45.909 Unspecified asthma, uncomplicated; M51.36 Other intervertebral disc degeneration, lumbar region; M47.22 Other spondylosis with radiculopathy, cervical region; G47.30 Sleep apnea, unspecified; F40.240 Claustrophobia; Z86.73 Personal history of transient ischemic attack (TIA), and cerebral infarction without residual deficits; Z79.899 Other long term (current) drug therapy; Z79.82 Long term (current) use of aspirin; Z79.4 Long term (current) use of insulin; Z85.850 Personal history of malignant neoplasm of thyroid; Z98.84 Bariatric surgery status
CPT/HCPCS: 70544; 70548; 70551; 70553; 72141; 80048; 80061; 82948; 83036; 85025; 85610; 85730; 93005; 93225; 93226; 93306; 96361; 96372; 96374; 97161; 99285; A9579; G0378; G8987; G8988; J1815; J2060; J7030

== ENCOUNTER 2017-08-22 07:59 | Emergency (ER) | payer OTHER ==
[~2017-08-22] VITALS: Ht 193 cm; Wt 124.5 kg
[~2017-08-22 07:59] MED LIST changes: -GABA100C4 PO; +GABA600T PO; -HUMUINJ5; +LIPI10TA PO; -NEUR400C PO; -Silver Sulfadia 1% Crm (50 Gm) TOPICAL
[2017-08-22 08:10] VITALS: BP 162/87; PULSE 75; RESP 18; TEMP 98.4
--- NOTE | 2017-08-22 08:59 | PD ---
HPI Chief Complaint: Numbness/Tingling Time Seen by Provider: 08:56 Travel History International Travel<30 days: No Contact w/Intl Traveler<30days: No Traveled to known affect area: No History of Present Illness HPI 51-year-old male patient with history of thyroid cancer status post thyroidectomy, asthma, recent TIA, lumbar spine fusion done by Dr. Riggs, presents to the ER today because he has been having left-sided neck pain with radiation down his left arm, up his left face all the way to the forehead, left neck, and feels like a tingling. He states that it is worse with movements in the neck. He has had this going on several weeks, had a MRI of the neck done last week when he was admitted, and had talked to Dr. Riggs, supposed to see Dr. Riggs in a week and a half. He states that meanwhile he cannot wait to see Dr. Riggs because of the pain. He has talked to Dr. Velasco, his primary care physician regarding this issue and was seen just a few days ago, states that he did not tell him to do anything, just to follow with Dr. Riggs. He is on morphine for pain which is being managed by pain management. He denies any fevers, or other new issues. He states that pain has just been more progressive recently. Modifying Factors: None Associated Signs & Symptoms: Left neck, face, arm paresthesias and pain Risk Factors: History of C-spine radiculopathy PFSH Past Medical History Hx Anticoagulant Therapy: Yes Arthritis: Yes (RHEUMATOID ) Asthma: Yes Autoimmune Disease: No Blood Disorders: No Bipolar Disorder: Yes Anxiety: Yes Depression: Yes Heart Rhythm Problems: No Cancer: Yes (THYROID) Cardiac Catheterization: Yes (2006) Cardiovascular Problems: Yes High Cholesterol: Yes Chemotherapy: No Chest Pain: No Congestive Heart Failure: No COPD: No Cerebrovascular Accident: Yes (TIA) Diabetes: Yes Patient Takes Glucophage: No Diminished Hearing: No Endocrine: Yes (HYPOALDOSTORISM, THYROIDECTOMY) Gastrointestinal Disorders: Yes (GERD, GASTRIC SLEEVE) GERD: Yes Genitourinary: No Headaches: No Hepatitis: No Hiatal Hernia: No Hypertension: Yes Immune Disorder: No Implanted Vascular Access Dvce: Yes Musculoskeletal: Yes (LUMBAR FUSION/ NERVE STIM) Neurologic: Yes Psychiatric: Yes (CLAUSTROPHOBIC) Reproductive: No Respiratory: Yes Immunizations Current: Yes Migraines: No Myocardial Infarction: No Pneumonia: Yes Radiation Therapy: Yes Renal Failure: No Seizures: No Sleep Apnea: Yes (USES CPAP) Thyroid Disease: Yes Ulcer: No Past Surgical History Abdominal Surgery: Yes AICD: No Arteriovenous Shunt: No Body Medical Devices: LOWER BACK TITANIUM SCREWS AND RODS, SPINAL CORD STIMULATOR Cardiac Surgery: No Cholecystectomy: Yes Ear Surgery: No Endocrine Surgery: Yes (THYROIDECTOMY) Eye Surgery: No Genitourinary Surgery: Yes (2000 VASECTOMY) Gynecologic Surgery: Yes Insulin Pump: Yes Joint Replacement: No Neurologic Surgery: Yes (LUMBAR FUSION, SPINAL STIMULATOR IMPL.) Oral Surgery: No Pacemaker: No Thoracic Surgery: No Other Surgery: Yes (EX. SCAR FOOT, ARTHROSCOPY RIGHT KNEE, NEUROSTEM STENT IN AND REMOVED,) Social History Alcohol Use: Yes (occassionally ) Tobacco Use: No Substance Use: No Allergies-Medications (Allergen,Severity, Reaction): Coded Allergies: diltiazem (Verified Allergy, Mild, Edema, 05/25/17) isradipine (Verified Allergy, Mild, Edema, 05/25/17) nicardipine (Verified Allergy, Mild, Edema, 05/25/17) nifedipine (Verified Allergy, Mild, Edema, 05/25/17) nimodipine (Verified Allergy, Mild, Edema, 05/25/17) verapamil (Verified Allergy, Mild, Edema, 05/25/17) MRI PRECAUTION (Verified Adverse Reaction, Severe, SPINAL STIMULATOR, 08/17) PER PATIENT, THE BATTERIES DO NOT WORK AND HE DOES NOT HAVE A CARD. HE DOES NOT LIST THIS ON THE HISTORY FORM ON PURPOSE PER PATIENT. KMD amlodipine (Verified Adverse Reaction, Intermediate, enlarged liver, ) atorvastatin (Verified Adverse Reaction, Intermediate, enlarged liver, ) pravastatin (Verified Adverse Reaction, Intermediate, enlarged liver, 08/15) simvastatin (Verified Adverse Reaction, Intermediate, enlarged liver, 08/15) cholestyramine (Verified Adverse Reaction, Mild, NAUSEA, 08/15/17) enalaprilat (Verified Adverse Reaction, Mild, Cough, 08/15/17) *MDRO Multi-Drug Resistant Organism (Verified Adverse Reaction, Unknown, ) MRSA (sputum) 10/27/16 Reported Meds & Prescriptions Reported Meds & Active Scripts Active Lipitor (Atorvastatin Calcium) 10 Mg Tab 10 Mg PO HS Morphine ER (Morphine Sulfate) 15 Mg Tab 15 Mg PO BID Pantoprazole (Pantoprazole Sodium) 40 Mg Tab 40 Mg PO BID NEB Aspirin EC (Aspirin) 81 Mg Tabdr 81 Mg PO DAILY Reported Gabapentin 600 Mg Tab 600 Mg PO BID Victoza Inj (Liraglutide Inj) 18 Mg/3 Ml Pen 1.8 Mg SQ DAILY 31 Days Cytomel (Liothyronine Sodium) 5 Mcg Tablet 10 Mcg PO BID Vitamin D3 (Cholecalciferol) 50,000 Unit Cap 50,000 Units PO 2XWEEK Mobic (Meloxicam) 15 Mg Tab 15 Mg PO DAILY Take with food Seroquel (Quetiapine Fumarate) 25 Mg Tab 125 Mg PO HS Breo Ellipta Inh (Fluticasone/Vilanterol) 200-25 Mcg/Act Inh 1 Puff INH DAILY Use daily at the same time. Latuda (Lurasidone) 40 Mg Tab 80 Mg PO DAILY Spironolactone 50 Mg Tab 100 Mg PO BID Ventolin Hfa 18 GM Inh (Albuterol Sulfate) 90 Mcg/Act Aer 2 Puff INH Q4H PRN Levothyroxine (Levothyroxine Sodium) 125 Mcg Tab 250 Mcg PO DAILY Metoprolol Tartrate 100 Mg Tab 200 Mg PO BID Imitrex (Sumatriptan Succinate) 100 Mg Tab 100 Mg PO ONCE PRN If a satisfactory response has not been obtained at 2 hours, a second dose may be administered Review of Systems Except as stated in HPI: all other systems reviewed are Neg Physical Exam Narrative GENERAL: Well-developed middle-age male patient currently in mild distress. Awake and oriented 3. SKIN: Focused skin assessment warm/dry. HEAD: Atraumatic. Normocephalic. EYES: Pupils equal and round. No scleral icterus. No injection or drainage. ENT: No nasal bleeding or discharge. Mucous membranes pink and moist. NECK: Trachea midline. No JVD. No midline C-spine tenderness or step-offs. Mild tenderness to palpation of the left upper cervical spine area without obvious deformities. CARDIOVASCULAR: Regular rate and rhythm. No murmur appreciated. RESPIRATORY: No accessory muscle use. Clear to auscultation. Breath sounds equal bilaterally. GASTROINTESTINAL: Abdomen soft, non-tender, nondistended. Hepatic and splenic margins not palpable. MUSCULOSKELETAL: No obvious deformities. No clubbing. No cyanosis. No edema. NEUROLOGICAL: Awake and alert. No obvious cranial nerve deficits. Motor grossly within normal limits. Normal speech. No pronator drift. PSYCHIATRIC: Appropriate mood and affect; insight and judgment normal. Data Data Last Documented VS Vital Signs Date Time Temp Pulse Resp B/P (MAP) Pulse Ox O2 Delivery O2 Flow Rate FiO2 08/22/17 08:10 98.4 75 18 162/87 (112) Orders Orders Cyclobenzaprine (Flexeril) (08/22/17 09:00) [facility] Medical Decision Making Medical Screen Exam Complete: Yes Emergency Medical Condition: Yes Medical Record Reviewed: Yes Differential Diagnosis Cervical radiculopathy versus muscle spasms Narrative Course Symptoms are consistent with MRI of the spine which shows upper cervical spine arthritis with left-sided foraminal narrowing. Alignment is normal. Diffuse disc desiccation. Prominent anterior osteophytosis at C4-C6. Mild multilevel facet hypertrophic changes are noted. The spinal cord signal intensity is normal. The bone marrow signal intensity is normal. C2-C3: Uncovertebral hypertrophy and facet hypertrophy with severe left foraminal stenosis. At this point, patient is about to see neurosurgery. My plan would be to give him further symptomatic relief for pain control. Return for worsening in symptoms or new issues as needed. The plan has been discussed with him and he states understanding. Diagnosis Primary Impression: Cervical radiculopathy due to degenerative joint disease of spine Med/Other Pt SpecificInfo: Prescription(s) given Scripts Ibuprofen (Ibuprofen) 600 Mg Tab 600 MG PO Q6H Y for Pain/Inflammation, #20 TAB 0 Refills Prov: Carol Benitez MD 08/22/17 Cyclobenzaprine (Flexeril) 10 Mg Tab 10 MG PO TID for Muscle Spasm, #20 TAB 0 Refills Prov: Carol Benitez MD 08/22/17 Methylprednisolone Dosepak (Medrol Dosepak) 4 Mg Dspk 4 MG PO DIRECTED, #1 DSPK 0 Refills Per Pharmacist direction Prov: Carol Benitez MD 08/22/17 Disposition: 01 DISCHARGE HOME Condition: Stable Carol Benitez MD August 22, 2017 08:59
[2017-08-22] MEDS ORDERED: CYCLOBENZAPRINE HCL 10 MG TAB PO ONE (09:00)
[2017-08-22] MEDS ORDERED: MEDR4PAK PO (09:05)
[2017-08-22] MEDS ORDERED: CYCL10TA PO (09:05)
[2017-08-22] MEDS ORDERED: IBUP-232 PO (09:11)
[2017-08-22 09:53] VITALS: BP 177/94
--- NOTE | 2017-08-23 13:52 | EKG ---
Date Performed: 08/22/2017 Time Performed: 09:27:21 PTAGE: 51 years EKG: Sinus rhythm PREVIOUS TRACING : 08/15/2017 12.55 Since the previous tracing, no significant change not ed DOCTOR: Ramon Mc Interpretating Date/Time 08/23/2017 13:50:41
== END 2017-08-22 09:54 | disposition home or self-care (01) ==
LOC: NEPC 07:59
DX: M54.12 Radiculopathy, cervical region (principal); M50.31 Other cervical disc degeneration, high cervical region; J45.909 Unspecified asthma, uncomplicated; M06.9 Rheumatoid arthritis, unspecified; F31.9 Bipolar disorder, unspecified; K21.9 Gastro-esophageal reflux disease without esophagitis; E11.9 Type 2 diabetes mellitus without complications; I10 Essential (primary) hypertension; Z86.73 Personal history of transient ischemic attack (TIA), and cerebral infarction without residual deficits
CPT/HCPCS: 93005

== ENCOUNTER 2017-11-06 14:38 | Inpatient (IN) ==
[2017-11-06] MEDS ORDERED: Morphine Inj 4 MG/ML Vial IV.PUSH ONE (15:25)
[2017-11-06] MEDS ORDERED: Piperacil/Tazo 4.5 GM Premix 4.5 GM/100 ML BAG IV.SIG ONE (15:27)
[2017-11-06] MEDS ORDERED: Vancomycin Inj 1 GM/200 ML PIGGYBACK IV.SIG ONE (15:27)
--- NOTE | 2017-11-06 15:33 | ED ---
HPI General Chief Complaint: Wound/Laceration Stated Complaint: dr sent Time Seen by Provider: 11/06/17 15:19 Source: patient Mode of arrival: ambulatory Limitations: no limitations History of Present Illness HPI narrative: The patient is a 51-year-old male who presents to the emergency department via private vehicle [facility] evaluation of a toe infection on the fourth digit of the left foot. The patient states he has been followed by his tyre fitter, Dr. Houston, who advised the patient to come to the hospital for admission. The patient was sent with paperwork requested admission to medicine with IV antibiotics, vancomycin, Zosyn, as well as a three-phase bone scan and arterial brachial indexes to be ordered with a consultation to podiatry. The patient does note a history of diabetes, insulin pump, but denies any known history of peripheral vascular disease. He does have a history of previous foot infections but denies any previous history of osteomyelitis or previous amputation. Symptoms are moderate, he does complain of mild pain over the affected digit with minimal drainage. He denies any associated fever, chills, or sweats. Related Data Allergies Allergy/AdvReac Type Severity Reaction Status Date / Time diltiazem Allergy Mild Edema Verified 11/06/17 15:26 isradipine Allergy Mild Edema Verified 11/06/17 15:26 nicardipine Allergy Mild Edema Verified 11/06/17 15:26 nifedipine Allergy Mild Edema Verified 11/06/17 15:26 nimodipine Allergy Mild Edema Verified 11/06/17 15:26 verapamil Allergy Mild Edema Verified 11/06/17 15:26 amlodipine AdvReac Intermediate enlarged Verified 11/06/17 15:26 liver atorvastatin AdvReac Intermediate enlarged Verified 11/06/17 15:26 liver pravastatin AdvReac Intermediate enlarged Verified 11/06/17 15:26 liver simvastatin AdvReac Intermediate enlarged Verified 11/06/17 15:26 liver cholestyramine AdvReac Mild NAUSEA Verified 11/06/17 16:01 enalaprilat AdvReac Mild Cough Verified 11/06/17 16:01 MRI PRECAUTION AdvReac Severe SPINAL Uncoded 11/06/17 16:00 STIMULATOR *MDRO Multi-Drug Resistant AdvReac Unknown none Uncoded 11/06/17 16:00 Organism Review of Systems Except as stated in HPI: all other systems reviewed are negative Constitutional Denies fever(s) Cardiovascular Denies chest pain and Denies dyspnea Respiratory Denies dyspnea Gastrointestinal Denies abdominal pain, Denies nausea and Denies vomiting Musculoskeletal Reports other Neurologic Denies numbness and Denies paresthesias [facility] Medical History Medical History Diabetes (Acute) High cholesterol (Acute) Hypertension (Acute) Presence of insulin pump (Acute) Social History Social History Substance History: No History of Abuse Second Hand Smoke Exposure: No Smoking Status: Never smoker How Often Do You Have a Drink Containing Alcohol: Never Recent Travel in [facility] [[email or web address] within the Last 8 Weeks: No Recent Out of Country Travel within the Last 8 Weeks: No Exam Narrative Exam Narrative: GENERAL: Awake, alert, pleasant 51-year-old male who appears his stated age and is in. SKIN: Focused skin assessment warm/dry. HEAD: Atraumatic. Normocephalic. EYES: Pupils equal and round. No scleral icterus. No injection or drainage. ENT: No nasal bleeding or discharge. Mucous membranes pink and moist. NECK: Trachea midline. No JVD. CARDIOVASCULAR: Regular rate and rhythm. No murmur appreciated. RESPIRATORY: No accessory muscle use. Clear to auscultation. Breath sounds equal bilaterally. GASTROINTESTINAL: Abdomen soft, non-tender, nondistended. Hepatic and splenic margins not palpable. MUSCULOSKELETAL: No obvious deformities. No clubbing. No cyanosis. No edema. NEUROLOGICAL: Awake and alert. No obvious cranial nerve deficits. Motor grossly within normal limits. Normal speech. PSYCHIATRIC: Appropriate mood and affect; insight and judgment normal. Course Consultations Consultation #1: I discussed the patient with Dr. Tiwari who agrees with admission. Time: 17:14 Initial Documented Vital Signs Temperature 99.3 F 11/06/17 14:58 Pulse Rate 91 H 11/06/17 14:58 Respiratory Rate 16 11/06/17 14:58 Blood Pressure 165/94 H 11/06/17 14:58 Pulse Oximetry 98 11/06/17 14:58 Last Documented Vital Signs Temperature 99.3 F 11/06/17 14:58 Pulse Rate 97 H 11/06/17 15:53 Respiratory Rate 16 11/06/17 15:53 Blood Pressure 159/83 H 11/06/17 15:53 Pulse Oximetry 96 11/06/17 15:53 Medical Decision Making MDM Narrative Medical decision making narrative: IV was established, labs are drawn and sent, and the patient was placed on cardiac telemetry monitoring and continuous pulse oximetry monitoring. Three-phase bone scan was ordered, a call was placed to [facility] for admission. CRP, CBC, sed rate, blood cultures, lactic acid were sent to lab. The patient was then administered vancomycin and Zosyn. The patient will be admitted to the medical service with consultation to podiatry. The patient's health insurance is [facility], therefore, the [facility] was paged for admission. Differential Diagnosis Differential Diagnosis: Differential diagnosis includes osteomy diabetic wound infection, sepsis, cellulitis, abscess, gangrene. Lab Data Lab results reviewed: Yes I reviewed the patient's lab results. Lab results narrative: CRP mildly elevated at 1.69, creatinine mildly elevated at 1.4. Lactic acid normal. Result diagrams: 11/06/17 15:30 Lab Results 11/06/17 11/06/17 11/06/17 Range/Units 15:30 15:30 15:30 ESR 38 H (0-15) mm/hr PT 9.9 (9.8-11.6) sec INR 1.0 Ratio APTT 25.0 (24.3-30.1) sec Sodium 139 (136-145) meq/L Potassium 4.5 (3.5-5.1) meq/L Chloride 108 H (98-107) meq/L Carbon Dioxide 25.2 (21.0-32.0) meq/L Anion Gap 6 (5-15) meq/L BUN 20 H (7-18) mg/dL Creatinine 1.40 H (0.60-1.30) mg/dL Estimated GFR 54 L (>89) mL/min Random Glucose 138 H (74-106) mg/dL Lactic Acid (0.4-2.0) mmol/L Calcium 9.2 (8.5-10.1) mg/dL Total Bilirubin 0.2 (0.2-1.0) mg/dL AST 43 H (15-37) U/L ALT 65 (12-78) U/L Alkaline Phosphatase 108 (45-117) U/L C-Reactive Protein 1.69 H (0.00-0.30) mg/dL Total Protein 7.3 (6.4-8.2) g/dL Albumin 3.7 (3.4-5.0) g/dL 11/06/17 Range/Units 15:30 ESR (0-15) mm/hr PT (9.8-11.6) sec INR Ratio APTT (24.3-30.1) sec Sodium (136-145) meq/L Potassium (3.5-5.1) meq/L Chloride (98-107) meq/L Carbon Dioxide (21.0-32.0) meq/L Anion Gap (5-15) meq/L BUN (7-18) mg/dL Creatinine (0.60-1.30) mg/dL Estimated GFR (>89) mL/min Random Glucose (74-106) mg/dL Lactic Acid 1.4 (0.4-2.0) mmol/L Calcium (8.5-10.1) mg/dL Total Bilirubin (0.2-1.0) mg/dL AST (15-37) U/L ALT (12-78) U/L Alkaline Phosphatase (45-117) U/L C-Reactive Protein (0.00-0.30) mg/dL Total Protein (6.4-8.2) g/dL Albumin (3.4-5.0) g/dL Discharge Plan Discharge Disposition Patient Disposition: 30 Still Patient Discharge Condition Condition: Stable Discharge Details Diagnosis: Diabetic foot ulcer Physicians Team ED Provider: Sahil Nguyen Primary Care Provider: Emmett Velasco Attending Provider: Camron Tiwari Other Providers: Rebeca Chahal Discharge Interventions Interventions: Vital Signs Last Done: 11/06/17 15:53 Status ED Status: Admitted Patient
[2017-11-06] MEDS ORDERED: Vancomycin Inj 1,000 MG in Sodium Chlor 0.9% Inj 250 ML IV.SIG ONE (15:45)
[2017-11-06 16:04] LABS: Prothrombin Time 9.9 sec (9.8-11.6)
--- NOTE | 2017-11-06 16:07 | P.HP ---
<Teresa Saucedo - Last Filed: 11/06/17 19:52> History of Present Illness Primary Care Physician: Emmett Velasco MD, PhD Chief Complaint: foot wound History of Present Illness: This is a 51 y/o male with hypertension, hyperlipidemia, hypothyroidism, diabetes, diabetic nephropathy, rheumatoid arthritis, bipolar disorder, and drug -induced Parkinson's disease. Patient reports he has been, "battling," this toe for about two months. Patient does not recall an initial injury or cut to the skin. Patient denies pain. Patient has been following with Dr. Chahal outpatient podiatry regarding this ulceration. Dr. Chahal referred patient to [facility] for admission, IV Vancomyacin and IV Zosyn, JULIANE and triple phase bone scan. Of note patient has recently gotten started on an insulin pump and reports his blood sugars controlled much better. Patient denies fevers, chills, N/V/D/C, chest pain or SOB. Past Medical History Generalized anxiety disorder Conn's syndrome Bipolar disorder type I, mixed History of thyroid cancer Chronic kidney disease stage I Obesity Diabetes with neuropathy and nephropathy Essential hypertriglyceridemia Lumbar facet syndrome with chronic pain Esophageal reflux disorder Hypertension Hypothyroidism Metabolic syndrome Migraine headaches Obesity Panic disorder without turgor phobia Postlaminectomy syndrome Rheumatoid arthritis 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 asthmatic bronchitis Past Surgical History Cardiac catheter reportedly negative Bronchoscopy [place] [address] 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 - Diagnosis (1) Diabetic foot ulcer Review of Systems All other systems reviewed negative except as stated in HPI PMFSH - History History Provided By: Patient - Medical History Medical History: Medical History (Last Updated 11/06/17 @ 15:54 by Carito Kelly) Diabetes High cholesterol Hypertension Presence of insulin pump - Travel History Recent Travel in the [place] Within the Last 8 Weeks: No Recent Travel Out of the Country Within the Last 8 Weeks: No Medications and Allergies Allergies Allergy/AdvReac Type Severity Reaction Status Date / Time diltiazem Allergy Mild Edema Verified 11/06/17 15:26 isradipine Allergy Mild Edema Verified 11/06/17 15:26 nicardipine Allergy Mild Edema Verified 11/06/17 15:26 nifedipine Allergy Mild Edema Verified 11/06/17 15:26 nimodipine Allergy Mild Edema Verified 11/06/17 15:26 verapamil Allergy Mild Edema Verified 11/06/17 15:26 amlodipine AdvReac Intermediate enlarged Verified 11/06/17 15:26 liver atorvastatin AdvReac Intermediate enlarged Verified 11/06/17 15:26 liver pravastatin AdvReac Intermediate enlarged Verified 11/06/17 15:26 liver simvastatin AdvReac Intermediate enlarged Verified 11/06/17 15:26 liver cholestyramine AdvReac Mild NAUSEA Verified 11/06/17 16:01 enalaprilat AdvReac Mild Cough Verified 11/06/17 16:01 MRI PRECAUTION AdvReac Severe SPINAL Uncoded 11/06/17 16:00 STIMULATOR *MDRO Multi-Drug Resistant AdvReac Unknown none Uncoded 11/06/17 16:00 Organism Home Medications Medication Instructions Recorded Confirmed Type albuterol sulfate [Ventolin HFA] 2 puff INHALATION Q4H PRN 11/06/17 11/06/17 History aspirin 81 mg PO DAILY 11/06/17 11/06/17 History cyclobenzaprine 10 mg PO TID 11/06/17 11/06/17 History ergocalciferol (vitamin D2) 50,000 unit PO QWEEK 11/06/17 11/06/17 History [Vitamin D2] fluticasone-vilanterol [Breo 1 inh INHALATION DAILY 11/06/17 11/06/17 History Ellipta] gabapentin 600 mg PO BID 11/06/17 11/06/17 History ibuprofen 600 mg PO Q6HR PRN 11/06/17 11/06/17 History levothyroxine 250 mcg PO DAILY 11/06/17 11/06/17 History liothyronine [Cytomel] 10 mcg PO DAILY 11/06/17 11/06/17 History lurasidone [Latuda] 80 mg PO DAILY 11/06/17 11/06/17 History meloxicam [Mobic] 15 mg PO DAILY 11/06/17 11/06/17 History metoprolol tartrate [Lopressor] 200 mg PO BID 11/06/17 11/06/17 History pantoprazole 40 mg PO BID 11/06/17 11/06/17 History quetiapine [Seroquel] 125 mg PO HS 11/06/17 11/06/17 History quetiapine [Seroquel] 125 mg PO HS 11/06/17 11/06/17 History spironolactone [Aldactone] 100 mg PO BID 11/06/17 11/06/17 History sumatriptan succinate [Imitrex] 100 mg PO ONCE PRN 11/06/17 11/06/17 History Active Medications: Active Medications Vancomycin HCl 1,000 mg/ (Sodium Chloride) 250 mls @ 200 mls/hr IV.SIG ONCE ONE Stop: 11/06/17 16:59 Last Admin: 11/06/17 15:44 Dose: 200 mls/hr Exam Vital signs: Vital Signs 11/06/17 14:58 Temperature 99.3 F Pulse Rate 91 H Respiratory Rate 16 Blood Pressure 165/94 H Pulse Oximetry 98 Intake & Output 11/05/17 11/06/17 11/06/17 18:59 06:59 18:59 Weight 127.006 kg Narrative: GENERAL: This is a well-nourished, well-developed patient, in no apparent distress. SKIN: left 4th toe erythematous with ulceration, palpable bounding pulses BLEs EYES: Extraocular motions intact. No scleral icterus. No injection or drainage. CARDIOVASCULAR: Regular rate and rhythm RESPIRATORY: Clear to auscultation. Breath sounds equal bilaterally. GASTROINTESTINAL: Abdomen soft, non-tender, nondistended. MUSCULOSKELETAL: Extremities without clubbing, cyanosis, or edema. NEUROLOGICAL: Awake and alert. No focal deficits noted. Motor and sensory grossly within normal limits. 4-5 out of 5 muscle strength in all muscle groups. Normal speech. Results - Labs CBC & Chem 7: 11/06/17 15:30 Caprini VTE Risk Assessment Caprini VTE Risk Assessment: No/Low Risk (score <= 1) Caprini Risk Assessment Model: Point Value = 1 Point Value = 2 Point Value = 3 Point Value = 5 Age 41-60 Minor surgery BMI > 25 kg/m2 Swollen legs Varicose veins or History of unexplained or recurrent spontaneous Oral contraceptives or hormone replacement Sepsis (< 1 month) Serious lung disease, including pneumonia (< 1 month) Abnormal pulmonary function Acute myocardial infarction Congestive heart failure (< 1 month) History of inflammatory bowel disease Medical patient at bed rest Age 61-74 Arthroscopic surgery Major open surgery (> 45 min) Laparoscopic surgery (> 45 min) Malignancy Confined to bed (> 72 hours) Immobilizing plaster cast Central venous access Age >= 75 History of VTE Family history of VTE Factor V Leiden Prothrombin [id number] Lupus anticoagulant Anticardiolipin antibodies Elevated serum homocysteine Heparin-induced thrombocytopenia Other congenital or acquired thrombophilia Stroke (< 1 month) Elective arthroplasty Hip, pelvis, or leg fracture Acute spinal cord injury (< 1 month) Prophylaxis Regimen: Total Risk Factor Score Risk Level Prophylaxis Regimen 0-1 Low Early ambulation 2 Moderate Order ONE of the following: *Sequential Compression Device (SCD) *Heparin 5000 units SQ BID 3-4 Higher Order ONE of the following medications: *Heparin 5000 units SQ TID *Enoxaparin/Lovenox 40 mg SQ daily (WT < 150 kg, CrCl > 30 mL/min) *Enoxaparin/Lovenox 30 mg SQ daily (WT < 150 kg, CrCl > 10-29 mL/min) *Enoxaparin/Lovenox 30 mg SQ BID (WT < 150 kg, CrCl > 30 mL/min) AND/OR *Sequential Compression Device (SCD) 5 or more Highest Order ONE of the following medications: *Heparin 5000 units SQ TID (Preferred with Epidurals) *Enoxaparin/Lovenox 40 mg SQ daily (WT < 150 kg, CrCl > 30 mL/min) *Enoxaparin/Lovenox 30 mg SQ daily (WT < 150 kg, CrCl > 10-29 mL/min) *Enoxaparin/Lovenox 30 mg SQ BID (WT < 150 kg, CrCl > 30 mL/min) AND *Sequential Compression Device (SCD) Assessment and Plan - Assessment (1) Diabetic foot ulcer Code(s): E11.621 - Type 2 diabetes mellitus with foot ulcer; L97.509 - Non- pressure chronic ulcer of other part of unspecified foot with unspecified severity Status: Acute Plan: Diabetic foot wound - The patient states he has been 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 Houston, who advised the patient to come to the hospital for admission. The patient was sent with paperwork requested admission to medicine with IV antibiotics, vancomycin, Zosyn, as well as a three-phase bone scan and arterial brachial indexes to be ordered with a consultation to podiatry. - Bone scan - BLE JULIANE - Zosyn IV and Vanco with pharmacy to dose - Consult podiatry, patient known to Dr. Chahal Hypothyroid - Continue home dose of Synthroid and Cytomel once medication reconciliation completed by nursing HTN (hypertension) - Cont. home meds once medication reconciliation completed by nursing Drug-induced Parkinson's disease - Chronic Bipolar depression - Continue home Latuda 40 mg PO daily and Seroquel 125 mg QHS once medication reconciliation completed by nursing Diabetes mellitus type 2, insulin dependent - Patient on insulin pump, continue home insulin pump - accu checks ACHS DVT prophylaxis with SCDs <Camron Tiwari - Last Filed: 11/10/17 00:53> History of Present Illness Primary Care Physician: Emmett Velasco MD, PhD - Diagnosis (1) Diabetic foot ulcer Inpatient Certification: I certify that the inpatient services were ordered in accordance with Medicare regulations governing the order. This includes certification that hospital inpatient services are reasonable and necessary and in the case of services not specified as inpatient-only under 42 CFR 419.22(n), that they are appropriately provided as inpatient services in accordance to with the 2-midnight benchmark under 43 CFR 412.3(e) [facility] - Medical History Medical History: Medical History (Last Updated 11/06/17 @ 15:54 by Carito Kelly) Diabetes High cholesterol Hypertension Presence of insulin pump Medications and Allergies Active Medications: Active Medications Acetaminophen (Tylenol) 650 mg PO Q4H PRN PRN Reason: Temp > 100.4 Hydrocodone Bitart/Acetaminophen ([place] 10/325) 1 tab PO Q4H PRN PRN Reason: pain 2-10 Last Admin: 11/09/17 21:06 Dose: 1 tab Al Hydroxide/Mg Hydroxide (Milk Of Magnesia Liq) 30 ml PO Q12H PRN PRN Reason: Mild Constipation Aspirin (Ecotrin) 81 mg PO DAILY [facility] Last Admin: 11/09/17 08:23 Dose: 81 mg Chlorhexidine Gluconate (Chlorhexidine 2% Cloth) 3 pack TOPICAL COIL REPAIR TECHNICIAN [facility] Stop: 11/11/17 04:45 Cyclobenzaprine HCl (Flexeril) 10 mg PO TID PRN PRN Reason: MUSCLE SPASM Fluticasone/Vilanterol (Breo Ellipta 200/25 Mcg Inh) 1 puff INH DAILY [facility] Last Admin: 11/09/17 08:24 Dose: Not Given Gabapentin (Neurontin) 600 mg PO BID [facility] Last Admin: 11/09/17 20:14 Dose: 600 mg Hydromorphone HCl (Dilaudid Pf Inj) 1 mg IV.PUSH Q4H PRN PRN Reason: breakthrough pain over 6 Last Admin: 11/10/17 00:41 Dose: 1 mg Pharmacy Profile Note (Vancomycin Consult Pharmacy) 0 mls @ 0 mls/hr [facility] Piperacillin/Tazobactam/Dextrose (Zosyn 3.375 Gm Premix) 50 mls @ 100 mls/hr IV.SIG Q6H [facility] Last Infusion: 11/09/17 20:46 Dose: Infused Vancomycin HCl 1,750 mg/ (Sodium Chloride) 517.5 mls @ 250 mls/hr IV.SIG Q12H [facility] Last Admin: 11/10/17 00:26 Dose: 100 mls/hr Lactated Ringer's (Lr 1000 Ml Inj) 1,000 mls @ 30 mls/hr IV.SIG .Q24H [facility] Stop: 11/11/17 04:45 Last Admin: 11/09/17 04:48 Dose: Not Given Sodium Chloride (Ns Inj) 500 mls @ 30 mls/hr IV.SIG .Q10H [facility] Stop: 11/11/17 04:45 Levothyroxine Sodium (Synthroid) 250 mcg PO DAILY@0600 [facility] Last Admin: 11/09/17 07:36 Dose: 250 mcg Liothyronine Sodium (Cytomel) 10 mcg PO DAILY [facility] Last Admin: 11/09/17 08:23 Dose: 10 mcg Lurasidone HCl (Latuda) 80 mg PO DAILY [facility] Last Admin: 11/09/17 08:23 Dose: 80 mg Metoprolol Tartrate (Lopressor) 25 mg PO COIL REPAIR TECHNICIAN [facility] Stop: 11/11/17 04:45 Miscellaneous Information ([facility] Ordered Lab Info) 0 each OTHER ONCE ONE Stop: 11/10/17 11:46 Ondansetron HCl (Zofran Inj) 4 mg IV.PUSH Q6H PRN PRN Reason: NAUSEA OR VOMITING Pantoprazole Sodium (Protonix) 40 mg PO BID [facility] Last Admin: 11/09/17 20:14 Dose: 40 mg Povidone Iodine (Betadine 5% Antisepsis Kit) 1 applicatio EACH NARE COIL REPAIR TECHNICIAN [facility] Stop: 11/11/17 04:45 Quetiapine Fumarate (Seroquel) 125 mg PO [facility] Last Admin: 11/09/17 20:13 Dose: 125 mg Senna/Docusate Sodium (Lida-Colace) 1 tab PO BID [facility] Last Admin: 11/09/17 20:14 Dose: Not Given Exam Vital signs: Vital Signs 11/09/17 04:15 11/09/17 08:00 11/09/17 12:00 Temperature 98.8 F 97.8 F 97.9 F Pulse Rate 89 77 100 H Respiratory Rate 18 20 18 Blood Pressure 152/94 H 157/87 H 151/84 H Pulse Oximetry 96 98 97 11/09/17 16:00 11/09/17 20:00 Temperature 97.9 F 99.3 F Pulse Rate 94 H 88 Respiratory Rate 20 17 Blood Pressure 149/84 H 161/86 H Pulse Oximetry 97 96 Intake & Output 11/09/17 11/09/17 11/10/17 06:59 18:59 06:59 Intake Total 1397.5 / 1397.5 1457.5 / 1457.5 50 / 50 Output Total 1100 / 1100 850 / 850 Balance 297.5 / 297.5 607.5 / 607.5 50 / 50 Weight 125 kg Intake: IV 617.5 / 617.5 617.5 / 617.5 50 / 50 Zosyn 3.375 GM Premix 50 ML @ 100 / 100 100 / 100 50 / 50 100 mls/hr IV.SIG Q6H [facility] Rx#: [id number] Vancomycin Inj 1,750 MG In NS 517.5 / 517.5 517.5 / 517.5 Inj 500 ML @ 250 mls/hr IV.SIG Q12H [facility] Rx#:[id number] Oral 780 / 780 840 / 840 Output: Urine 1100 / 1100 850 / 850 Other: Date of Last Bowel Movement 11/09/17 # Bowel Movements 3 Results - Labs CBC & Chem 7: 11/09/17 07:41 07/23/18 07:41 Labs: Laboratory Results - last 24 hr 11/09/17 11/09/17 11/09/17 07:41 07:41 07:53 WBC 4.8 RBC 3.85 L Hgb 11.2 L Hct 32.8 L MCV 85.2 MCH 29.1 MCHC 34.2 RDW 16.3 Plt Count 153 MPV 9.5 Neut % (Auto) 62.0 Lymph % (Auto) 24.4 Swisher % (Auto) 9.9 H Eos % (Auto) 3.1 Baso % (Auto) 0.6 Neut # (Auto) 3.0 Lymph # (Auto) 1.2 Swisher # (Auto) 0.5 Eos # (Auto) 0.1 Baso # (Auto) 0.0 WBC Differential . Differential Comment Auto diff final Sodium 143 Potassium 3.7 Chloride 109 H Carbon Dioxide 26.8 Anion Gap 7 BUN 10 Creatinine 1.14 Estimated GFR 68 L POC Glucose 69 Random Glucose 61 L D Calcium 9.1 11/09/17 11/09/17 11/09/17 08:22 12:25 17:15 WBC RBC Hgb Hct MCV MCH MCHC RDW Plt Count MPV Neut % (Auto) Lymph % (Auto) Swisher % (Auto) Eos % (Auto) Baso % (Auto) Neut # (Auto) Lymph # (Auto) Swisher # (Auto) Eos # (Auto) Baso # (Auto) WBC Differential Differential Comment Sodium Potassium Chloride Carbon Dioxide Anion Gap BUN Creatinine Estimated GFR POC Glucose 96 162 H 342 H Random Glucose Calcium 11/09/17 20:20 WBC RBC Hgb Hct MCV MCH MCHC RDW Plt Count MPV Neut % (Auto) Lymph % (Auto) Swisher % (Auto) Eos % (Auto) Baso % (Auto) Neut # (Auto) Lymph # (Auto) Swisher # (Auto) Eos # (Auto) Baso # (Auto) WBC Differential Differential Comment Sodium Potassium Chloride Carbon Dioxide Anion Gap BUN Creatinine Estimated GFR POC Glucose 176 H Random Glucose Calcium Caprini VTE Risk Assessment Caprini Risk Assessment Model: Point Value = 1 Point Value = 2 Point Value = 3 Point Value = 5 Age 41-60 Minor surgery BMI > 25 kg/m2 Swollen legs Varicose veins or History of unexplained or recurrent spontaneous Oral contraceptives or hormone replacement Sepsis (< 1 month) Serious lung disease, including pneumonia (< 1 month) Abnormal pulmonary function Acute myocardial infarction Congestive heart failure (< 1 month) History of inflammatory bowel disease Medical patient at bed rest Age 61-74 Arthroscopic surgery Major open surgery (> 45 min) Laparoscopic surgery (> 45 min) Malignancy Confined to bed (> 72 hours) Immobilizing plaster cast Central venous access Age >= 75 History of VTE Family history of VTE Factor V Leiden Prothrombin [id number] Lupus anticoagulant Anticardiolipin antibodies Elevated serum homocysteine Heparin-induced thrombocytopenia Other congenital or acquired thrombophilia Stroke (< 1 month) Elective arthroplasty Hip, pelvis, or leg fracture Acute spinal cord injury (< 1 month) Prophylaxis Regimen: Total Risk Factor Score Risk Level Prophylaxis Regimen 0-1 Low Early ambulation 2 Moderate Order ONE of the following: *Sequential Compression Device (SCD) *Heparin 5000 units SQ BID 3-4 Higher Order ONE of the following medications: *Heparin 5000 units SQ TID *Enoxaparin/Lovenox 40 mg SQ daily (WT < 150 kg, CrCl > 30 mL/min) *Enoxaparin/Lovenox 30 mg SQ daily (WT < 150 kg, CrCl > 10-29 mL/min) *Enoxaparin/Lovenox 30 mg SQ BID (WT < 150 kg, CrCl > 30 mL/min) AND/OR *Sequential Compression Device (SCD) 5 or more Highest Order ONE of the following medications: *Heparin 5000 units SQ TID (Preferred with Epidurals) *Enoxaparin/Lovenox 40 mg SQ daily (WT < 150 kg, CrCl > 30 mL/min) *Enoxaparin/Lovenox 30 mg SQ daily (WT < 150 kg, CrCl > 10-29 mL/min) *Enoxaparin/Lovenox 30 mg SQ BID (WT < 150 kg, CrCl > 30 mL/min) AND *Sequential Compression Device (SCD) Assessment and Plan - Assessment (1) Diabetic foot ulcer Code(s): E11.621 - Type 2 diabetes mellitus with foot ulcer; L97.509 - Non- pressure chronic ulcer of other part of unspecified foot with unspecified severity Status: Acute - Attending Attestation Patient examined. Assessment and plan formulated with Teresa Saucedo PA-C. I agree with the above. <Teresa Saucedo W - Last Filed: 11/06/17 19:52> (1) Diabetic foot ulcer Qualifiers: Diabetic foot ulcer location: toe Diabetes mellitus type: type 1 Laterality : left Non-pressure ulcer stage: limited to breakdown of skin Qualified Code(s ): E10.621 - Type 1 diabetes mellitus with foot ulcer; L97.521 - Non-pressure chronic ulcer of other part of left foot limited to breakdown of skin <Camron Tiwari B - Last Filed: 11/10/17 00:53> (1) Diabetic foot ulcer Qualifiers: Diabetic foot ulcer location: toe Diabetes mellitus type: type 1 Laterality : left Non-pressure ulcer stage: limited to breakdown of skin Qualified Code(s ): E10.621 - Type 1 diabetes mellitus with foot ulcer; L97.521 - Non-pressure chronic ulcer of other part of left foot limited to breakdown of skin
[2017-11-06 16:17] LABS: Alanine Aminotransferase 65 U/L (12-78); Albumin 3.7 g/dL (3.4-5.0); Anion Gap 6 meq/L (5-15); Aspartate Aminotransferase 43 U/L (15-37); Blood Urea Nitrogen 20 mg/dL (7-18); C-Reactive Protein 1.69 mg/dL (0.00-0.30); Calcium 9.2 mg/dL (8.5-10.1); Carbon Dioxide 25.2 meq/L (21.0-32.0); Chloride 108 meq/L (98-107); Glomerular Filtration Rate 54 mL/min (>89); Glucose,Random 138 mg/dL (74-106); Potassium 4.5 meq/L (3.5-5.1); Sodium 139 meq/L (136-145)
[2017-11-06 16:19] LABS: Alkaline Phosphatase 108 U/L (45-117); Total Protein 7.3 g/dL (6.4-8.2)
[2017-11-06] MEDS ORDERED: Acetaminophen 325 MG Tablet PO PRN (16:29)
[2017-11-06] MEDS ORDERED: Vancomycin Consult Pharmacy 1 EACH OTHER SCH (17:00)
[2017-11-06] MEDS: QUEtiapine 25 MG Tablet PO SCH (21:25)
[2017-11-06] MEDS: Piperacil/Tazo 3.375 GM Premix 50 ML IV.SIG SCH (21:26)
[2017-11-06] MEDS: Gabapentin 300 MG Capsule PO SCH (21:26)
[2017-11-06] MEDS: HYDROmorphone PF Inj 2 MG/ML Vial IV.PUSH PRN (21:30)
[2017-11-06] MEDS: Senna/Docusate Sodium 8.6/50 MG Tablet PO SCH (23:02)
[2017-11-07] MEDS ORDERED: Vancomycin Inj 1,600 MG in Sodium Chlor 0.9% Inj 500 ML IV.SIG SCH ×2
[2017-11-07 01:23] LABS: Baso # (Auto) 0.1 th/mm3 (0.0-0.2); Eos # (Auto) 0.1 th/mm3 (0.0-0.4); Eos % (Auto) 1.8 % (0.0-4.0); Hematocrit 37.9 % (39.0-51.0); Hemoglobin 12.9 gm/dL (13.0-17.0); Lymph # (Auto) 1.5 th/mm3 (1.0-4.8); Lymph % (Auto) 22.1 % (9.0-44.0); Mean Corpuscular HGB Conc 34.2 % (32.0-36.0); Mean Corpuscular Hemoglobin 29.4 pg (27.0-34.0); Mean Platelet Volume 10.5 fL (7.0-11.0); Mono # (Auto) 0.6 th/mm3 (0.0-0.9); Mono % (Auto) 9.3 % (0.0-8.0); Neut # (Auto) 4.3 th/mm3 (1.8-7.7); Neut % (Auto) 65.8 % (16.0-70.0); Platelet Count 190 th/mm3 (150-450); Red Cell Distribution Width 17.1 % (11.6-17.2); White Blood Count 6.6 th/mm3 (4.0-11.0)
[2017-11-07] MEDS: HYDROmorphone PF Inj 2 MG/ML Vial IV.PUSH PRN ×4 (03:34→20:09)
[2017-11-07] MEDS: Piperacil/Tazo 3.375 GM Premix 50 ML IV.SIG SCH ×4 (03:37→20:10)
[2017-11-07] MEDS: Levothyroxine 125 MCG Tablet PO SCH (06:27)
[2017-11-07 08:14] LABS: Baso % (Auto) 0.5 % (0.0-2.0); Eos # (Auto) 0.1 th/mm3 (0.0-0.4); Eos % (Auto) 2.2 % (0.0-4.0); Hematocrit 33.4 % (39.0-51.0); Hemoglobin 11.4 gm/dL (13.0-17.0); Lymph # (Auto) 1.1 th/mm3 (1.0-4.8); Lymph % (Auto) 22.5 % (9.0-44.0); Mean Corpuscular HGB Conc 34.2 % (32.0-36.0); Mean Corpuscular Hemoglobin 29.1 pg (27.0-34.0); Mean Corpuscular Volume 85.2 fL (80.0-100.0); Mean Platelet Volume 10.1 fL (7.0-11.0); Mono # (Auto) 0.5 th/mm3 (0.0-0.9); Mono % (Auto) 9.9 % (0.0-8.0); Neut # (Auto) 3.2 th/mm3 (1.8-7.7); Neut % (Auto) 64.9 % (16.0-70.0); Platelet Count 165 th/mm3 (150-450); Red Blood Count 3.92 mil/mm3 (4.50-5.90); Red Cell Distribution Width 16.1 % (11.6-17.2); White Blood Count 4.9 th/mm3 (4.0-11.0)
[2017-11-07 08:38] LABS: Calcium 9.2 mg/dL (8.5-10.1); Carbon Dioxide 23.8 meq/L (21.0-32.0); Potassium 3.8 meq/L (3.5-5.1)
[2017-11-07] MEDS: Gabapentin 300 MG Capsule PO SCH ×2 (09:02→20:10)
[2017-11-07] MEDS: Lurasidone 80 MG Tablet PO SCH (09:02)
[2017-11-07] MEDS: Liothyronine 5 MCG Tablet PO SCH (09:03)
[2017-11-07] MEDS: Senna/Docusate Sodium 8.6/50 MG Tablet PO SCH ×2 (09:04→20:10)
--- NOTE | 2017-11-07 09:35 | P.CON ---
History of Present Illness Service: Foot and Ankle Surgery/Podiatry Consult date: 11/07/17 Primary Care Provider: Emmett Velasco MD, PhD Family Provider: Emmett Velasco MD, PhD Chief Complaint: foot wound History of Present Illness: Podiatry consulted for this 51-year-old male well known to myself who was sent from the office for left fourth digit infection not improved on oral antibiotics. Patient does have a history of uncontrolled diabetes however he recently secured in insulin pump which has helped bring his A1c down from 10 to 8.1. He reports pain to left fourth digit which is increasing in severity. Denies any nausea vomiting fevers or chills at this time. Review of Systems Constitutional: Denies chills, Denies fatigue, Denies fever(s), Denies headache( s), Denies malaise Eyes: Denies blind spots Ears, Nose, Mouth, and Throat: Denies abnormal hearing Cardiovascular: Reports foot swelling, Denies chest pain Respiratory: Denies cough, Denies shortness of breath Gastrointestinal: Denies abdominal pain Psychiatric: Denies anxiety, Denies confusion PMFSH - History History Provided By: Patient - Medical History Medical History: Medical History (Last Updated 11/06/17 @ 15:54 by Carito Kelly) Diabetes High cholesterol Hypertension Presence of insulin pump - Tobacco History Second Hand Smoke Exposure: No Tobacco Use In Past 30 Days: No Smoking Status: Never smoker - Alcohol History How Often Do You Have a Drink Containing Alcohol: Never - Substance Use History Substance History: No History of Abuse - Travel History Recent Travel in the [place] Within the Last 8 Weeks: No Recent Travel Out of the Country Within the Last 8 Weeks: No - Immunization History Tetanus Immunization: Unsure Hx Influenza Vaccine This Season: Yes Medications and Allergies Active Medications: Active Medications Acetaminophen (Tylenol) 650 mg PO Q4H PRN PRN Reason: Temp > 100.4 Hydrocodone Bitart/Acetaminophen ([place] 7.5/325) 1 tab PO Q6H PRN PRN Reason: PAIN SCALE 1 TO 5 Al Hydroxide/Mg Hydroxide (Milk Of Magnesia Liq) 30 ml PO Q12H PRN PRN Reason: Mild Constipation Aspirin (Ecotrin) 81 mg PO DAILY [facility] Last Admin: 11/07/17 09:03 Dose: 81 mg Cyclobenzaprine HCl (Flexeril) 10 mg PO TID PRN PRN Reason: MUSCLE SPASM Fluticasone/Vilanterol (Breo Ellipta 200/25 Mcg Inh) 1 puff INH DAILY [facility] Last Admin: 11/07/17 09:03 Dose: Not Given Gabapentin (Neurontin) 600 mg PO BID [facility] Last Admin: 11/07/17 09:02 Dose: 600 mg Hydromorphone HCl (Dilaudid Pf Inj) 1 mg IV.PUSH Q6H PRN PRN Reason: PAIN 6-10;IF UNABLE TO TAKE PO Last Admin: 11/07/17 09:19 Dose: 1 mg Pharmacy Profile Note (Vancomycin Consult Pharmacy) 0 mls @ 0 mls/hr OTHER UNSCH [facility] Piperacillin/Tazobactam/Dextrose (Zosyn 3.375 Gm Premix) 50 mls @ 100 mls/hr IV.SIG Q6H [facility] Last Admin: 11/07/17 09:07 Dose: 100 mls/hr Vancomycin HCl 1,600 mg/ (Sodium Chloride) 516 mls @ 250 mls/hr IV.SIG Q12H [facility] Last Infusion: 11/07/17 02:32 Dose: Infused Levothyroxine Sodium (Synthroid) 250 mcg PO DAILY@0600 [facility] Last Admin: 11/07/17 06:27 Dose: 250 mcg Liothyronine Sodium (Cytomel) 10 mcg PO DAILY [facility] Last Admin: 11/07/17 09:03 Dose: 10 mcg Lurasidone HCl (Latuda) 80 mg PO DAILY [facility] Last Admin: 11/07/17 09:02 Dose: 80 mg Miscellaneous Information [place] [place] Lab Info) 0 each OTHER ONCE ONE Stop: 11/08/17 11:46 Ondansetron HCl (Zofran Inj) 4 mg IV.PUSH Q6H PRN PRN Reason: NAUSEA OR VOMITING Pantoprazole Sodium (Protonix) 40 mg PO BID [facility] Last Admin: 11/07/17 09:03 Dose: 40 mg Quetiapine Fumarate (Seroquel) 125 mg PO HS [facility] Last Admin: 11/06/17 21:25 Dose: 125 mg Senna/Docusate Sodium (Lida-Colace) 1 tab PO BID [facility] Last Admin: 11/07/17 09:04 Dose: Not Given Allergies Allergy/AdvReac Type Severity Reaction Status Date / Time diltiazem Allergy Mild Edema Verified 11/06/17 15:26 isradipine Allergy Mild Edema Verified 11/06/17 15:26 nicardipine Allergy Mild Edema Verified 11/06/17 15:26 nifedipine Allergy Mild Edema Verified 11/06/17 15:26 nimodipine Allergy Mild Edema Verified 11/06/17 15:26 verapamil Allergy Mild Edema Verified 11/06/17 15:26 amlodipine AdvReac Intermediate enlarged Verified 11/06/17 15:26 liver atorvastatin AdvReac Intermediate enlarged Verified 11/06/17 15:26 liver pravastatin AdvReac Intermediate enlarged Verified 11/06/17 15:26 liver simvastatin AdvReac Intermediate enlarged Verified 11/06/17 15:26 liver cholestyramine AdvReac Mild NAUSEA Verified 11/06/17 16:01 enalaprilat AdvReac Mild Cough Verified 11/06/17 16:01 MRI PRECAUTION AdvReac Severe SPINAL Uncoded 11/06/17 16:00 STIMULATOR *MDRO Multi-Drug Resistant AdvReac Unknown none Uncoded 11/06/17 16:00 Organism Home Medications Medication Instructions Recorded Confirmed Type albuterol sulfate [Ventolin HFA] 2 puff INHALATION Q4H PRN 11/06/17 11/06/17 History aspirin 81 mg PO DAILY 11/06/17 11/06/17 History cyclobenzaprine 10 mg PO TID 11/06/17 11/06/17 History ergocalciferol (vitamin D2) 50,000 unit PO QWEEK 11/06/17 11/06/17 History [Vitamin D2] fluticasone-vilanterol [Breo 1 inh INHALATION DAILY 11/06/17 11/06/17 History Ellipta] gabapentin 600 mg PO BID 11/06/17 11/06/17 History ibuprofen 600 mg PO Q6HR PRN 11/06/17 11/06/17 History levothyroxine 250 mcg PO DAILY 11/06/17 11/06/17 History liothyronine [Cytomel] 10 mcg PO DAILY 11/06/17 11/06/17 History lurasidone [Latuda] 80 mg PO DAILY 11/06/17 11/06/17 History meloxicam [Mobic] 15 mg PO DAILY 11/06/17 11/06/17 History metoprolol tartrate [Lopressor] 200 mg PO BID 11/06/17 11/06/17 History pantoprazole 40 mg PO BID 11/06/17 11/06/17 History quetiapine [Seroquel] 125 mg PO HS 11/06/17 11/06/17 History quetiapine [Seroquel] 125 mg PO HS 11/06/17 11/06/17 History spironolactone [Aldactone] 100 mg PO BID 11/06/17 11/06/17 History sumatriptan succinate [Imitrex] 100 mg PO ONCE PRN 11/06/17 11/06/17 History Physical Exam Vital signs: Vital Signs 11/06/17 14:58 11/06/17 15:53 11/06/17 16:40 Temperature 99.3 F Pulse Rate 91 H 97 H Respiratory Rate 16 16 14 Blood Pressure 165/94 H 159/83 H Pulse Oximetry 98 96 11/06/17 17:00 11/06/17 18:07 11/06/17 20:00 Temperature 98.7 F 98.8 F Pulse Rate 86 75 92 H Respiratory Rate 16 19 17 Blood Pressure 148/77 H 157/91 H 164/83 H Pulse Oximetry 98 98 11/07/17 00:00 11/07/17 02:30 11/07/17 04:15 Temperature 98.1 F Pulse Rate 86 Respiratory Rate 17 18 18 Blood Pressure 136/76 Pulse Oximetry 96 11/07/17 08:00 Temperature 97.8 F Pulse Rate 77 Respiratory Rate 19 Blood Pressure 154/88 H Pulse Oximetry 97 Intake & Output 11/06/17 11/07/17 11/07/17 18:59 06:59 18:59 Intake Total 250 / 250 1196 / 1196 Output Total 300 / 300 Balance 250 / 250 896 / 896 Weight 127.006 kg 125 kg Intake: IV 250 / 250 716 / 716 Zosyn 3.375 GM Premix 50 ML @ 100 / 100 100 mls/hr IV.SIG Q6H [facility] Rx#: [id number] Zosyn 4.5 GM Premix 4.5 gm In 100 / 100 100 ml @ 200 mls/hr IV.SIG ONCE ONE Rx#:[id number] Vancomycin Inj 1,000 MG In NS 250 / 250 Inj 250 ML @ 200 mls/hr IV.SIG ONCE ONE Rx#:[id number] Vancomycin Inj 1,600 MG In NS 516 / 516 Inj 500 ML @ 250 mls/hr IV.SIG Q12H [facility] Rx#:[id number] Oral 480 / 480 Output: Urine 300 / 300 Narrative: GENERAL: This is a well-nourished, well-developed patient, in no apparent distress. SKIN: Left fourth digit ulceration with increased edema and erythema HEAD: Atraumatic. EYES: Pupils equal round and reactive. ENT: Airway patent. NECK: Trachea midline. RESPIRATORY: Nonlabored breathing. MUSCULOSKELETAL:. Negative Homans sign bilaterally. NEUROLOGICAL: Awake and alert. Normal speech. Lower extremity physical exam: Vascular: Dorsalis pedis 2/4, posterior tibial 2/4. Capillary refill time within normal limits to digits X5 bilateral foot. Edema present to left fourth digit Neuro: Gross sensation intact to bilateral lower extremity. Pinpoint sensation decreased. No hyperalgesia noted to bilateral lower extremity Dermatology: Left fourth digit ulceration to lateral aspect as well as medial aspect secondary to close proximity of fifth digit. Ulceration probes to capsule with surrounding erythema and edema erythema extends into metatarsal phalangeal joint. No fluctuance or crepitance noted. Musculoskeletal: Tender to palpation to left fourth digit. Assessment and Plan - Plan 51-year-old male with left fourth digit ulceration infection, potential osteomyelitis Patient examined and evaluated with all questions answered Bone scan to be performed today hopefully as patient initially refused bone scan and now may not be able to be completed until Thursday Will await bone scan results prior to any surgical intervention Osteomyelitis suspected to proximal phalanx of left fourth digit would like to rule out any osteo to the fourth metatarsal Dressed left foot with Betadine and DSD to left fourth digit Oral pain control ordered
--- NOTE | 2017-11-07 12:53 | ECHRPT ---
EXAM DATE: 11/07/2017 12:44 PM EDT AGE/SEX: 51 years / Male INDICATIONS: Diabetic Foot Infection, Osteomyelitis CLINICAL DATA: This is the patient's initial encounter. Patient reports that signs and symptoms have been present for 2 months and indicates a pain score of 8/10. MEDICAL/SURGICAL HISTORY: . Hypertension, Hyperlipidemia, Hypothyroidism, Diabetes, Arthitis, B ipolar, Drug induced Parkinson, Hx thyroid cancer, Obesity, Kidney disease stage 1 . Cardiac cath, B ronchoscopy, Cholecystectomy, Circumcision, Lumber laminectomy, Gastric bypass, rhizotomy, Vasectomy, L4 to s1 fusion COMPARISON: No prior exams available for comparison. TECHNIQUE: Four-cuff ankle and brachial pressures were obtained. Pulse cuff waveform tracings of the ankles were recorded, and ankle-brachial indices were calculated. PRESSURES (mmHg): Brachial (arm) : RIGHT: IV SITE, LEFT: 143 Ankle : RIGHT: 151, LEFT: 155 Toe : RIGHT: 127, LEFT: 136 JULIANE : RIGHT: 1.06, LEFT: 1.08 FINDINGS: Pulsed-Cuff Waveform: There are good upstroke and a dicrotic downstroke of the tracings. Other: None. CONCLUSION: 1. No significant stenosis is suspected. Normal ABIs. Electronically signed by: Ozzy Haile MD 11/07/2017 12:52 PM EDT
[2017-11-07] MEDS: Vancomycin Inj 1,750 MG in Sodium Chlor 0.9% Inj 500 ML IV.SIG SCH (13:44)
--- NOTE | 2017-11-07 15:04 | NM ---
EXAM DATE: 11/07/2017 2:50 PM EDT AGE/SEX: 51 years / Male INDICATIONS: Left fourth metatarsal head and digit infection. CLINICAL DATA: This is the patient's initial encounter. Patient reports that signs and symptoms have been present for 1 day and indicates a pain score of 3/10. MEDICAL/SURGICAL HISTORY: Diabetes mellitus type II. Hypertension. Carcinoma, thyroid. Thyroi dectomy. Gastric bypass. Cholecystectomy. COMPARISON: No prior exams available for comparison. No external comparison. TECHNIQUE: Bone scan was performed in sagittal, axial and coronal planes. Attenuation correction was performed with computed tomography and both the attenuation correction and non-attenuation corrected data sets were reviewed. PRIOR BONE SCANS: No correlative bone scan available for comparison. DOSE: 30.0 mCi Tc99m MDP IV IMAGING: Three-phase bone scan of the feet and ankles. SPECT/CT imaging of the feet and ankles with fusion was performed. RADIATION DOSE: 2.66 CTDIvol(mGy) FINDINGS: Flow study and blood pool images demonstrate prominent focal increased uptake in the lateral distal l eft forefoot. On the 2 hour planar images, there is persistent focal uptake to the distal lateral lef t forefoot. No abnormal uptake in the distal fourth metatarsal bone. SPECT imaging was performed for further localization and characterization of the abnormality. The area of increased uptake is located in the region of the PIP joint and middle phalanx of the fourth digit. CONCLUSION: 1. Abnormal 3 phase bone scan demonstrating increasing prominent uptake on all 3 phases was localize d to the middle phalanx and PIP joint of the fourth digit of the left foot. The findings are characte ristic of osteomyelitis. Electronically signed by: Herb Chino MD 11/07/2017 3:03 PM EDT
--- NOTE | 2017-11-07 18:24 | P.PNIM ---
Subjective Interval history: Pt still having significant pain in the foot BP elevated likely related to pain Physical Exam Vital signs: Vital Signs 11/06/17 20:00 11/07/17 00:00 11/07/17 02:30 Temperature 98.8 F 98.1 F Pulse Rate 92 H 86 Respiratory Rate 17 17 18 Blood Pressure 164/83 H 136/76 Pulse Oximetry 98 96 11/07/17 04:15 11/07/17 08:00 11/07/17 12:00 Temperature 97.8 F 97.8 F Pulse Rate 77 97 H Respiratory Rate 18 19 17 Blood Pressure 154/88 H 159/87 H Pulse Oximetry 97 96 11/07/17 16:00 Temperature 98.6 F Pulse Rate 100 H Respiratory Rate 17 Blood Pressure 181/94 H Pulse Oximetry 96 Intake & Output 11/06/17 11/07/17 11/07/17 18:59 06:59 18:59 Intake Total 250 / 250 1196 / 1196 617.5 / 617.5 Output Total 300 / 300 Balance 250 / 250 896 / 896 617.5 / 617.5 Weight 127.006 kg 125 kg Intake: IV 250 / 250 716 / 716 617.5 / 617.5 Zosyn 3.375 GM Premix 50 ML @ 100 / 100 100 / 100 100 mls/hr IV.SIG Q6H [facility] Rx#: [id number] Zosyn 4.5 GM Premix 4.5 gm In 100 / 100 100 ml @ 200 mls/hr IV.SIG ONCE ONE Rx#:[id number] Vancomycin Inj 1,000 MG In NS 250 / 250 Inj 250 ML @ 200 mls/hr IV.SIG ONCE ONE Rx#:[id number] Vancomycin Inj 1,750 MG In NS 516 / 516 517.5 / 517.5 Inj 500 ML @ 250 mls/hr IV.SIG Q12H [facility] Rx#:[id number] Oral 480 / 480 Output: Urine 300 / 300 Narrative: GENERAL: This is a well-nourished, well-developed patient, in no apparent distress. SKIN: Left fourth digit ulceration with increased edema and erythema RESP: CTA bilaterally ABD: +BS, soft ND/NT Ext: Tender to palpation to left fourth digit. Results - Labs CBC & Chem 7: 11/09/17 07:41 11/09/17 07:41 Laboratory Results - last 24 hr 11/06/17 11/07/17 11/07/17 15:30 04:34 04:54 WBC 6.6 4.9 RBC 4.40 L 3.92 L Hgb 12.9 L 11.4 L Hct 37.9 L 33.4 L MCV 86.0 85.2 MCH 29.4 29.1 MCHC 34.2 34.2 RDW 17.1 16.1 Plt Count 190 165 MPV 10.5 10.1 Neut % (Auto) 65.8 64.9 Lymph % (Auto) 22.1 22.5 [place] % (Auto) 9.3 H 9.9 H Eos % (Auto) 1.8 2.2 Baso % (Auto) 1.0 0.5 Neut # (Auto) 4.3 3.2 Lymph # (Auto) 1.5 1.1 [place] # (Auto) 0.6 0.5 Eos # (Auto) 0.1 0.1 Baso # (Auto) 0.1 0.0 WBC Differential . . Differential Comment Auto diff final Auto diff final Sodium 142 Potassium 3.8 Chloride 107 Carbon Dioxide 23.8 Anion Gap 11 BUN 15 Creatinine 1.20 Estimated GFR 64 L POC Glucose Random Glucose 56 L Calcium 9.2 11/07/17 11/07/17 11/07/17 08:04 12:13 17:02 WBC RBC Hgb Hct MCV MCH MCHC RDW Plt Count MPV Neut % (Auto) Lymph % (Auto) [place] % (Auto) Eos % (Auto) Baso % (Auto) Neut # (Auto) Lymph # (Auto) [place] # (Auto) Eos # (Auto) Baso # (Auto) WBC Differential Differential Comment Sodium Potassium Chloride Carbon Dioxide Anion Gap BUN Creatinine Estimated GFR POC Glucose 75 166 H 225 H Random Glucose Calcium Microbiology 11/06/17 15:40 Blood - Peripheral Aerobic Blood Culture - Preliminary No growth in 1 day 11/06/17 15:40 Blood - Peripheral Anaerobic Blood Culture - Preliminary No growth in 1 day 11/06/17 15:45 Blood - Peripheral Aerobic Blood Culture - Preliminary No growth in 1 day 11/06/17 15:45 Blood - Peripheral Anaerobic Blood Culture - Preliminary No growth in 1 day - Imaging Impressions Extremity Arterial Study 11/06/17 00:00 CONCLUSION: 1. No significant stenosis is suspected. Normal ABIs. SPECT Scan-Bone NM 11/07/17 00:00 CONCLUSION: 1. Abnormal 3 phase bone scan demonstrating increasing prominent uptake on all 3 phases was localized to the middle phalanx and PIP joint of the fourth digit of the left foot. The findings are characteristic of osteomyelitis. 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 Houston, who advised the patient to come to the hospital for admission. The patient was sent with paperwork requested admission to medicine with IV antibiotics, vancomycin, Zosyn, as well as a three-phase bone scan and arterial brachial indexes to be ordered with a consultation to podiatry. - Extremity Arterial Study (11/06/17) 1. No significant stenosis is suspected. Normal ABIs. - SPECT Scan-Bone NM (11/07/17) 1. Abnormal 3 phase bone scan demonstrating increasing prominent uptake on all 3 phases was localized to the middle phalanx and PIP joint of the fourth digit of the left foot. The findings are characteristic of osteomyelitis. - Zosyn IV stopped on 11/06 - Cont. Vanco with pharmacy to dose - Appreciate consult from podiatry, Dr. Chahal - Case discussed between Dr. Tiwari and Dr. Chahal on 11/07 and plan is for OR on 11/08 - Pain control PRN - NPO after MN except meds Hypothyroid - Continue home dose of Synthroid and Cytomel HTN (hypertension) - Cont. home meds Drug-induced Parkinson's disease - Chronic Bipolar depression - Continue home Latuda 40 mg PO daily and Seroquel 125 mg QHS Diabetes mellitus type 2, insulin dependent - Patient on insulin pump, continue home insulin pump - accu checks ACHS DVT prophylaxis with SCDs - Attending Attestation Patient examined. Assessment and plan formulated with Heike Castro PA-C. I agree with the above. (1) Diabetic foot ulcer Qualifiers: Diabetic foot ulcer location: toe Diabetes mellitus type: type 1 Laterality : left Non-pressure ulcer stage: limited to breakdown of skin Qualified Code(s ): E10.621 - Type 1 diabetes mellitus with foot ulcer; L97.521 - Non-pressure chronic ulcer of other part of left foot limited to breakdown of skin
[2017-11-07] MEDS: QUEtiapine 25 MG Tablet PO SCH (20:10)
[2017-11-08] MEDS: Vancomycin Inj 1,750 MG in Sodium Chlor 0.9% Inj 500 ML IV.SIG SCH ×2 (00:53→11:38)
[2017-11-08] MEDS: HYDROmorphone PF Inj 2 MG/ML Vial IV.PUSH PRN ×4 (02:08→19:14)
[2017-11-08] MEDS: Piperacil/Tazo 3.375 GM Premix 50 ML IV.SIG SCH ×4 (02:08→20:57)
[2017-11-08] MEDS: Levothyroxine 125 MCG Tablet PO SCH ×2 (04:44→06:43)
[2017-11-08] MEDS ORDERED: Metoprolol Tartrate 25 MG Tablet PO SCH (04:45)
[2017-11-08] MEDS ORDERED: Chlorhexidine Gluconate 2% 1 Pack (2 Cloths) TOPICAL SCH (04:45)
[2017-11-08] MEDS ORDERED: Sodium Chlor 0.9% Inj 500 ML IV.SIG SCH (05:00)
[2017-11-08] MEDS ORDERED: Bupivacaine PF 0.5% Inj 30 ML Vial ONE (07:32)
[2017-11-08] MEDS: Senna/Docusate Sodium 8.6/50 MG Tablet PO SCH ×2 (07:59→20:59)
[2017-11-08] MEDS: Gabapentin 300 MG Capsule PO SCH ×2 (07:59→20:58)
[2017-11-08] MEDS: Liothyronine 5 MCG Tablet PO SCH (07:59)
[2017-11-08] MEDS: Lurasidone 80 MG Tablet PO SCH (07:59)
--- NOTE | 2017-11-08 08:14 | P.PNPOD ---
Subjective Interval history: Patient seen bedside. Agrees with planned procedure. Discussed bone scan results. Is in good spirits. Physical Exam Vital signs: Vital Signs 11/07/17 12:00 11/07/17 16:00 11/07/17 20:18 Temperature 97.8 F 98.6 F 98.7 F Pulse Rate 97 H 100 H 95 H Respiratory Rate 17 17 16 Blood Pressure 159/87 H 181/94 H 177/83 H Pulse Oximetry 96 96 96 11/08/17 00:07 11/08/17 04:43 11/08/17 07:20 Temperature 97.9 F 98.0 F Pulse Rate 86 88 Respiratory Rate 20 20 17 Blood Pressure 140/69 142/86 H Pulse Oximetry 98 96 Intake & Output 11/07/17 11/08/17 11/08/17 18:59 06:59 18:59 Intake Total 2017.5 / 2017.5 100 / 100 Output Total 2000 / 1999 1100 / 1100 Balance 17.5 / 17.5 -1000 / -1000 Weight 125 kg Intake: IV 617.5 / 617.5 100 / 100 Zosyn 3.375 GM Premix 50 ML @ 100 / 100 100 / 100 100 mls/hr IV.SIG Q6H [facility] Rx#: [id number] Vancomycin Inj 1,750 MG In NS 517.5 / 517.5 Inj 500 ML @ 250 mls/hr IV.SIG Q12H [facility] Rx#:[id number] Oral 1400 / 1400 Output: Urine 1999 / 1999 1100 / 1100 Other: Date of Last Bowel Movement 11/07/17 11/07/17 # Bowel Movements 0 Narrative: Dressing to left foot clean dry and intact. Medications and Allergies Active Medications: Active Medications Acetaminophen (Tylenol) 650 mg PO Q4H PRN PRN Reason: Temp > 100.4 Hydrocodone Bitart/Acetaminophen ([place] 10/325) 1 tab PO Q4H PRN PRN Reason: pain 2-10 Last Admin: 11/08/17 04:43 Dose: 1 tab Al Hydroxide/Mg Hydroxide (Milk Of Magnesia Liq) 30 ml PO Q12H PRN PRN Reason: Mild Constipation Aspirin (Ecotrin) 81 mg PO DAILY [facility] Last Admin: 11/08/17 07:59 Dose: Not Given Chlorhexidine Gluconate (Chlorhexidine 2% Cloth) 3 pack TOPICAL WEB [employer] [facility] Stop: 11/11/17 04:45 Cyclobenzaprine HCl (Flexeril) 10 mg PO TID PRN PRN Reason: MUSCLE SPASM Fluticasone/Vilanterol (Breo Ellipta 200/25 Mcg Inh) 1 puff INH DAILY [facility] Last Admin: 11/08/17 07:59 Dose: Not Given Gabapentin (Neurontin) 600 mg PO BID [facility] Last Admin: 11/08/17 07:59 Dose: 600 mg Hydromorphone HCl (Dilaudid Pf Inj) 1 mg IV.PUSH Q4H PRN PRN Reason: breakthrough pain over 6 Last Admin: 11/08/17 06:03 Dose: 1 mg Pharmacy Profile Note (Vancomycin Consult Pharmacy) 0 mls @ 0 mls/hr OTHER UNSCH [facility] Piperacillin/Tazobactam/Dextrose (Zosyn 3.375 Gm Premix) 50 mls @ 100 mls/hr IV.SIG Q6H [facility] Last Infusion: 11/08/17 06:44 Dose: Infused Vancomycin HCl 1,750 mg/ (Sodium Chloride) 517.5 mls @ 250 mls/hr IV.SIG Q12H [facility] Last Infusion: 11/08/17 06:43 Dose: 0 mls/hr Lactated Ringer's (Lr 1000 Ml Inj) 1,000 mls @ 30 mls/hr IV.SIG .Q24H [facility] Stop: 11/11/17 04:45 Last Admin: 11/08/17 07:29 Dose: 30 mls/hr Sodium Chloride (Ns Inj) 500 mls @ 30 mls/hr IV.SIG .Q10H [facility] Stop: 11/11/17 04:45 Levothyroxine Sodium (Synthroid) 250 mcg PO DAILY@0600 [facility] Last Admin: 11/08/17 06:43 Dose: Not Given Liothyronine Sodium (Cytomel) 10 mcg PO DAILY [facility] Last Admin: 11/08/17 07:59 Dose: 10 mcg Lurasidone HCl (Latuda) 80 mg PO DAILY [facility] Last Admin: 11/08/17 07:59 Dose: 80 mg Metoprolol Tartrate (Lopressor) 25 mg PO WEB [employer] [facility] Stop: 11/11/17 04:45 Miscellaneous Information ([facility] Ordered Lab Info) 0 each OTHER ONCE ONE Stop: 11/08/17 11:46 Ondansetron HCl (Zofran Inj) 4 mg IV.PUSH Q6H PRN PRN Reason: NAUSEA OR VOMITING Pantoprazole Sodium (Protonix) 40 mg PO BID [facility] Last Admin: 11/08/17 07:59 Dose: 40 mg Povidone Iodine (Betadine 5% Antisepsis Kit) 1 applicatio EACH NARE [employer] [facility] Stop: 11/11/17 04:45 Quetiapine Fumarate (Seroquel) 125 mg PO [facility] Last Admin: 11/07/17 20:10 Dose: 125 mg Senna/Docusate Sodium (Lida-Colace) 1 tab PO BID [facility] Last Admin: 11/08/17 07:59 Dose: Not Given Allergies Allergy/AdvReac Type Severity Reaction Status Date / Time diltiazem Allergy Mild Edema Verified 11/06/17 15:26 isradipine Allergy Mild Edema Verified 11/06/17 15:26 nicardipine Allergy Mild Edema Verified 11/06/17 15:26 nifedipine Allergy Mild Edema Verified 11/06/17 15:26 nimodipine Allergy Mild Edema Verified 11/06/17 15:26 verapamil Allergy Mild Edema Verified 11/06/17 15:26 amlodipine AdvReac Intermediate enlarged Verified 11/06/17 15:26 liver atorvastatin AdvReac Intermediate enlarged Verified 11/06/17 15:26 liver pravastatin AdvReac Intermediate enlarged Verified 11/06/17 15:26 liver simvastatin AdvReac Intermediate enlarged Verified 11/06/17 15:26 liver cholestyramine AdvReac Mild NAUSEA Verified 11/06/17 16:01 enalaprilat AdvReac Mild Cough Verified 11/06/17 16:01 MRI PRECAUTION AdvReac Severe SPINAL Uncoded 11/06/17 16:00 STIMULATOR *MDRO Multi-Drug Resistant AdvReac Unknown none Uncoded 11/06/17 16:00 Organism Home Medications Medication Instructions Recorded Confirmed Type albuterol sulfate [Ventolin HFA] 2 puff INHALATION Q4H PRN 11/06/17 11/06/17 History aspirin 81 mg PO DAILY 11/06/17 11/06/17 History cyclobenzaprine 10 mg PO TID 11/06/17 11/06/17 History ergocalciferol (vitamin D2) 50,000 unit PO QWEEK 11/06/17 11/06/17 History [Vitamin D2] fluticasone-vilanterol [Breo 1 inh INHALATION DAILY 11/06/17 11/06/17 History Ellipta] gabapentin 600 mg PO BID 11/06/17 11/06/17 History ibuprofen 600 mg PO Q6HR PRN 11/06/17 11/06/17 History levothyroxine 250 mcg PO DAILY 11/06/17 11/06/17 History liothyronine [Cytomel] 10 mcg PO DAILY 11/06/17 11/06/17 History lurasidone [Latuda] 80 mg PO DAILY 11/06/17 11/06/17 History meloxicam [Mobic] 15 mg PO DAILY 11/06/17 11/06/17 History metoprolol tartrate [Lopressor] 200 mg PO BID 11/06/17 11/06/17 History pantoprazole 40 mg PO BID 11/06/17 11/06/17 History quetiapine [Seroquel] 125 mg PO HS 11/06/17 11/06/17 History quetiapine [Seroquel] 125 mg PO HS 11/06/17 11/06/17 History spironolactone [Aldactone] 100 mg PO BID 11/06/17 11/06/17 History sumatriptan succinate [Imitrex] 100 mg PO ONCE PRN 11/06/17 11/06/17 History Results - Labs CBC & Chem 7: 11/07/17 04:34 11/07/17 04:54 Laboratory Results - last 24 hr 11/07/17 11/07/17 11/07/17 04:34 04:54 12:13 WBC 4.9 RBC 3.92 L Hgb 11.4 L Hct 33.4 L MCV 85.2 MCH 29.1 MCHC 34.2 RDW 16.1 Plt Count 165 MPV 10.1 Neut % (Auto) 64.9 Lymph % (Auto) 22.5 [place] % (Auto) 9.9 H Eos % (Auto) 2.2 Baso % (Auto) 0.5 Neut # (Auto) 3.2 Lymph # (Auto) 1.1 [place] # (Auto) 0.5 Eos # (Auto) 0.1 Baso # (Auto) 0.0 WBC Differential . Differential Comment Auto diff final Sodium 142 Potassium 3.8 Chloride 107 Carbon Dioxide 23.8 Anion Gap 11 BUN 15 Creatinine 1.20 Estimated GFR 64 L POC Glucose 166 H Random Glucose 56 L Calcium 9.2 11/07/17 11/08/17 11/08/17 17:02 07:26 07:36 WBC RBC Hgb Hct MCV MCH MCHC RDW Plt Count MPV Neut % (Auto) Lymph % (Auto) [place] % (Auto) Eos % (Auto) Baso % (Auto) Neut # (Auto) Lymph # (Auto) [place] # (Auto) Eos # (Auto) Baso # (Auto) WBC Differential Differential Comment Sodium Potassium Chloride Carbon Dioxide Anion Gap BUN Creatinine Estimated GFR POC Glucose 225 H 79 79 Random Glucose Calcium Microbiology 11/06/17 15:40 Blood - Peripheral Aerobic Blood Culture - Preliminary No growth in 1 day 11/06/17 15:40 Blood - Peripheral Anaerobic Blood Culture - Preliminary No growth in 1 day 11/06/17 15:45 Blood - Peripheral Aerobic Blood Culture - Preliminary No growth in 1 day 11/06/17 15:45 Blood - Peripheral Anaerobic Blood Culture - Preliminary No growth in 1 day - Imaging Impressions Extremity Arterial Study 11/06/17 00:00 CONCLUSION: 1. No significant stenosis is suspected. Normal ABIs. SPECT Scan-Bone NM 11/07/17 00:00 CONCLUSION: 1. Abnormal 3 phase bone scan demonstrating increasing prominent uptake on all 3 phases was localized to the middle phalanx and PIP joint of the fourth digit of the left foot. The findings are characteristic of osteomyelitis. Assessment and Plan - Plan 51 year old male with OM to left fourth middle phalanx and PIPJ Patient examined and evaluated with all questions answered Bone scan reviewed and discussed with patient To OR today for left fourth digit amputation at [facility] Consent obtained and signed LLE marked Patient understands all risks, benefits, complications, and alternatives associated with procedure and would like to proceed with surgical intervention.
--- NOTE | 2017-11-08 09:09 | P.PCN ---
Date of procedure: 11/08/17 Pre-op diagnosis: Left fouth digit OM Post-op diagnosis: same Procedure: Left fourth digit amputation at [facility] Anesthesia: GETA Surgeon: Rebeca Chahal Estimated blood loss (mL): 10 Pathology: other (Left fourth digit to path, left fourth proximal phalanx clearing margin to path and micro, Left foot soft tissue for micro) Condition: stable Disposition: PACU (with VSS and NVS)
[2017-11-08] MEDS ORDERED: Misc Info for Pharmacy OTHER STA (09:10)
[2017-11-08] MEDS ORDERED: fentaNYL Citrate Inj 100 MCG/2 ML Ampul ONE (09:22)
--- NOTE | 2017-11-08 09:32 | P.PNIM ---
Subjective Interval history: Pt underwent left fourth digit amputation at [facility] this morning Pain is well controlled currently No new complaints Physical Exam Vital signs: Vital Signs 11/07/17 12:00 11/07/17 16:00 11/07/17 20:18 Temperature 97.8 F 98.6 F 98.7 F Pulse Rate 97 H 100 H 95 H Respiratory Rate 17 17 16 Blood Pressure 159/87 H 181/94 H 177/83 H Pulse Oximetry 96 96 96 11/08/17 00:07 11/08/17 04:43 11/08/17 07:20 Temperature 97.9 F 98.0 F Pulse Rate 86 88 Respiratory Rate 20 20 17 Blood Pressure 140/69 142/86 H Pulse Oximetry 98 96 Intake & Output 11/07/17 11/08/17 11/08/17 18:59 06:59 18:59 Intake Total 2017.5 / 2016. 100 / 100 500 / 500 Output Total 2000 / 1999 1100 / 1100 10 / Balance 17.5 / 17.5 -1000 / -1000 490 / 490 Weight 125 kg Intake: IV 617.5 / 617.5 100 / 100 Zosyn 3.375 GM Premix 50 ML @ 100 / 100 100 / 100 100 mls/hr IV.SIG Q6H [facility] Rx#: [id number] Vancomycin Inj 1,750 MG In NS 517.5 / 517.5 Inj 500 ML @ 250 mls/hr IV.SIG Q12H [facility] Rx#:[id number] Oral 1400 / 1400 Anesthesia Amount 500 / 500 Output: Urine 1999 / 1999 1100 / 1100 Estimated Blood Loss 10 10 Other: Date of Last Bowel Movement 11/07/17 11/07/17 # Bowel Movements 0 Narrative: GENERAL: This is a well-nourished, well-developed patient, in no apparent distress. Cardiac: Regular RESP: CTA bilaterally ABD: +BS, soft ND/NT Ext: Left foot bandages are c/d/i Results - Labs CBC & Chem 7: 11/09/17 07:41 11/09/17 07:41 Laboratory Results - last 24 hr 11/07/17 11/07/17 11/08/17 12:13 17:02 07:26 POC Glucose 166 H 225 H 79 11/08/17 11/08/17 07:36 09:20 POC Glucose 79 85 Microbiology 11/06/17 15:40 Blood - Peripheral Aerobic Blood Culture - Preliminary No growth in 1 day 11/06/17 15:40 Blood - Peripheral Anaerobic Blood Culture - Preliminary No growth in 1 day 11/06/17 15:45 Blood - Peripheral Aerobic Blood Culture - Preliminary No growth in 1 day 11/06/17 15:45 Blood - Peripheral Anaerobic Blood Culture - Preliminary No growth in 1 day - Imaging Impressions Extremity Arterial Study 11/06/17 00:00 CONCLUSION: 1. No significant stenosis is suspected. Normal ABIs. SPECT Scan-Bone NM 11/07/17 00:00 CONCLUSION: 1. Abnormal 3 phase bone scan demonstrating increasing prominent uptake on all 3 phases was localized to the middle phalanx and PIP joint of the fourth digit of the left foot. The findings are characteristic of osteomyelitis. Assessment and Plan - Assessment (1) Diabetic foot ulcer Code(s): E11.621 - Type 2 diabetes mellitus with foot ulcer; L97.509 - Non- pressure chronic ulcer of other part of unspecified foot with unspecified severity Status: Acute Plan: Diabetic foot wound Osteomyelitis - The patient states he has been followed by his regulatory coordinator, Dr. Houston, who advised the patient to come to the hospital for admission. The patient was sent with paperwork requested admission to medicine with IV antibiotics, vancomycin, Zosyn, as well as a three-phase bone scan and arterial brachial indexes to be ordered with a consultation to podiatry. - Extremity Arterial Study (11/06/17) 1. No significant stenosis is suspected. Normal ABIs. - SPECT Scan-Bone NM (11/07/17) 1. Abnormal 3 phase bone scan demonstrating increasing prominent uptake on all 3 phases was localized to the middle phalanx and PIP joint of the fourth digit of the left foot. The findings are characteristic of osteomyelitis. - Zosyn IV stopped on 11/06 - Cont. Vanco with pharmacy to dose - Appreciate consult from podiatry, Dr. Chahal - Pt underwent Left fourth digit amputation at [facility] on 08/09/[address] Chahal - Pain control PRN - Dressing changes per podiatry Hypothyroid - Continue home dose of Synthroid and Cytomel HTN (hypertension) - Cont. home meds Drug-induced Parkinson's disease - Chronic Bipolar depression - Continue home Latuda 40 mg PO daily and Seroquel 125 mg QHS Diabetes mellitus type 2, insulin dependent - Patient on insulin pump, continue home insulin pump - Accu checks ACHS DVT prophylaxis with SCDs - Attending Attestation Patient examined. Assessment and plan formulated with Heike Castro PA-C. I agree with the above. (1) Diabetic foot ulcer Qualifiers: Diabetic foot ulcer location: toe Diabetes mellitus type: type 1 Laterality : left Non-pressure ulcer stage: limited to breakdown of skin Qualified Code(s ): E10.621 - Type 1 diabetes mellitus with foot ulcer; L97.521 - Non-pressure chronic ulcer of other part of left foot limited to breakdown of skin
[2017-11-08] MEDS ORDERED: *morphine SULFATE 4 MG/ML PERIprocedure ONLY ONE (09:42)
--- NOTE | 2017-11-08 10:18 | XR ---
EXAM DATE: 11/08/2017 10:06 AM EDT AGE/SEX: 51 years / Male INDICATIONS: Post op left ankle surgery. CLINICAL DATA: This is the patient's initial encounter. Patient reports that signs and symptoms have been present for 1 day and indicates a pain score of 3/10. MEDICAL/SURGICAL HISTORY: . Hypertension, Hyperlipidemia, Hypothyroidism, Diabetes, Geni tis, Bipolar, Drug induced Parkinson, Hx thyroid cancer, Obesity, Kidney disease stage 1. . Cardiac cath, Bronchoscopy, Cholecystectomy, Circumcision, Lumber laminectomy, Gastric bypass, rhizotomy, Vas ectomy, L4 to s1 fusion COMPARISON: POI, MR ANKLE W/O CONTRAST, LEFT, 10/23/2011. . FINDINGS: Bony structures are intact and in normal alignment. Joints are intact without dislocation or signifi cant arthropathy. Osseous density is normal. There is a small spur off the inferior calcaneus at the site of attachment of the plantar aponeurosis. There is ossification along the distal Achilles tendo n with mild soft tissue prominence in this region. No radiopaque foreign bodies seen. CONCLUSION: 1. Ossification along the distal Achilles tendon with mild soft tissue prominence in this region. 2. Small spur off the inferior calcaneus. Electronically signed by: Francis Smith MD 11/08/2017 10:16 AM EDT
[2017-11-08] MEDS ORDERED: Pharmacy Ordered Lab Info OTHER ONE (11:45)
[2017-11-08] MEDS ORDERED: Lidocaine PF 1% Inj 5 ML Syringe INFILTRATN ONE (12:00)
[2017-11-08 14:21] LABS: Baso % (Auto) 0.7 % (0.0-2.0); Eos # (Auto) 0.1 th/mm3 (0.0-0.4); Eos % (Auto) 2.9 % (0.0-4.0); Hematocrit 33.4 % (39.0-51.0); Hemoglobin 11.2 gm/dL (13.0-17.0); Lymph # (Auto) 1.1 th/mm3 (1.0-4.8); Lymph % (Auto) 24.5 % (9.0-44.0); Mean Corpuscular HGB Conc 33.6 % (32.0-36.0); Mean Corpuscular Volume 86.4 fL (80.0-100.0); Mono # (Auto) 0.3 th/mm3 (0.0-0.9); Mono % (Auto) 7.4 % (0.0-8.0); Neut # (Auto) 2.9 th/mm3 (1.8-7.7); Neut % (Auto) 64.5 % (16.0-70.0); Platelet Count 160 th/mm3 (150-450); Red Blood Count 3.86 mil/mm3 (4.50-5.90); Red Cell Distribution Width 16.3 % (11.6-17.2); White Blood Count 4.5 th/mm3 (4.0-11.0)
[2017-11-08 14:44] LABS: Calcium 8.8 mg/dL (8.5-10.1); Carbon Dioxide 22.7 meq/L (21.0-32.0); Magnesium 1.7 mg/dL (1.5-2.5); Potassium 3.9 meq/L (3.5-5.1)
[2017-11-08] MEDS: QUEtiapine 25 MG Tablet PO SCH (20:57)
[2017-11-09] MEDS: Vancomycin Inj 1,750 MG in Sodium Chlor 0.9% Inj 500 ML IV.SIG SCH ×2 (00:07→11:42)
[2017-11-09] MEDS: Piperacil/Tazo 3.375 GM Premix 50 ML IV.SIG SCH ×4 (02:52→20:16)
[2017-11-09] MEDS: HYDROmorphone PF Inj 2 MG/ML Vial IV.PUSH PRN ×4 (05:43→20:14)
[2017-11-09] MEDS: Levothyroxine 125 MCG Tablet PO SCH (07:36)
[2017-11-09] MEDS: Liothyronine 5 MCG Tablet PO SCH (08:23)
[2017-11-09] MEDS: Lurasidone 80 MG Tablet PO SCH (08:23)
[2017-11-09] MEDS: Gabapentin 300 MG Capsule PO SCH ×2 (08:23→20:14)
[2017-11-09] MEDS: Senna/Docusate Sodium 8.6/50 MG Tablet PO SCH ×2 (08:24→20:14)
[2017-11-09 08:39] LABS: Baso % (Auto) 0.6 % (0.0-2.0); Eos # (Auto) 0.1 th/mm3 (0.0-0.4); Eos % (Auto) 3.1 % (0.0-4.0); Hematocrit 32.8 % (39.0-51.0); Hemoglobin 11.2 gm/dL (13.0-17.0); Lymph # (Auto) 1.2 th/mm3 (1.0-4.8); Lymph % (Auto) 24.4 % (9.0-44.0); Mean Corpuscular HGB Conc 34.2 % (32.0-36.0); Mean Corpuscular Hemoglobin 29.1 pg (27.0-34.0); Mean Corpuscular Volume 85.2 fL (80.0-100.0); Mean Platelet Volume 9.5 fL (7.0-11.0); Mono # (Auto) 0.5 th/mm3 (0.0-0.9); Mono % (Auto) 9.9 % (0.0-8.0); Platelet Count 153 th/mm3 (150-450); Red Blood Count 3.85 mil/mm3 (4.50-5.90); Red Cell Distribution Width 16.3 % (11.6-17.2); White Blood Count 4.8 th/mm3 (4.0-11.0)
[2017-11-09 09:27] LABS: Calcium 9.1 mg/dL (8.5-10.1); Carbon Dioxide 26.8 meq/L (21.0-32.0); Potassium 3.7 meq/L (3.5-5.1)
--- NOTE | 2017-11-09 09:45 | P.PNIM ---
Subjective Interval history: Pt feeling well today He reports some diarrhea this morning, 2 BMs Tolerating oral intake Pain is well controlled Physical Exam Vital signs: Vital Signs 11/08/17 09:45 11/08/17 10:00 11/08/17 12:00 Temperature 98.5 F 98.0 F Pulse Rate 87 84 92 H Respiratory Rate 18 14 17 Blood Pressure 158/89 H 151/86 H 135/73 Pulse Oximetry 93 L 11/08/17 16:00 11/08/17 20:49 11/09/17 00:19 Temperature 98.1 F 98.9 F 97.0 F L Pulse Rate 92 H 91 H 78 Respiratory Rate 20 21 20 Blood Pressure 143/84 H 147/87 H 159/77 H Pulse Oximetry 95 96 97 11/09/17 04:15 Temperature 98.8 F Pulse Rate 89 Respiratory Rate 18 Blood Pressure 152/94 H Pulse Oximetry 96 Intake & Output 11/08/17 11/09/17 11/09/17 18:59 06:59 18:59 Intake Total 2235.0 / 2235.0 1397.5 / 1397.5 50 / 50 Output Total 685 / 685 1100 / 1100 Balance 1550.0 / 1550.0 297.5 / 297.5 50 / 50 Weight 125 kg Intake: IV 1135.0 / 1135.0 617.5 / 617.5 50 / 50 Zosyn 3.375 GM Premix 50 ML @ 100 / 100 100 / 100 50 / 50 100 mls/hr IV.SIG Q6H [facility] Rx#: [id number] Vancomycin Inj 1,750 MG In NS 1035.0 / 1035.0 517.5 / 517.5 Inj 500 ML @ 250 mls/hr IV.SIG Q12H [facility] Rx#:[id number] Oral 600 / 600 780 / 780 Anesthesia Amount 500 / 500 Output: Urine 675 / 675 1100 / 1100 Estimated Blood Loss 10 / 10 Other: Date of Last Bowel Movement 11/07/17 # Bowel Movements 0 Narrative: GENERAL: This is a well-nourished, well-developed patient, in no apparent distress. Cardiac: Regular RESP: CTA bilaterally ABD: +BS, soft ND/NT Ext: Left foot bandages are c/d/i Results - Labs CBC & Chem 7: 11/09/17 07:41 11/09/17 07:41 Laboratory Results - last 24 hr 11/08/17 11/08/17 11/08/17 11:45 12:02 14:05 WBC 4.5 RBC 3.86 L Hgb 11.2 L Hct 33.4 L MCV 86.4 MCH 29.0 MCHC 33.6 RDW 16.3 Plt Count 160 MPV 10.0 Neut % (Auto) 64.5 Lymph % (Auto) 24.5 [place] % (Auto) 7.4 Eos % (Auto) 2.9 Baso % (Auto) 0.7 Neut # (Auto) 2.9 Lymph # (Auto) 1.1 [place] # (Auto) 0.3 Eos # (Auto) 0.1 Baso # (Auto) 0.0 WBC Differential . Differential Comment Auto diff final Sodium Potassium Chloride Carbon Dioxide Anion Gap BUN Creatinine Estimated GFR POC Glucose 240 H Random Glucose Calcium Magnesium Vancomycin Trough 12.3 H 11/08/17 11/08/17 11/09/17 14:05 16:26 07:41 WBC 4.8 RBC 3.85 L Hgb 11.2 L Hct 32.8 L MCV 85.2 MCH 29.1 MCHC 34.2 RDW 16.3 Plt Count 153 MPV 9.5 Neut % (Auto) 62.0 Lymph % (Auto) 24.4 [place] % (Auto) 9.9 H Eos % (Auto) 3.1 Baso % (Auto) 0.6 Neut # (Auto) 3.0 Lymph # (Auto) 1.2 [place] # (Auto) 0.5 Eos # (Auto) 0.1 Baso # (Auto) 0.0 WBC Differential . Differential Comment Auto diff final Sodium 139 Potassium 3.9 Chloride 106 Carbon Dioxide 22.7 Anion Gap 10 BUN 12 Creatinine 1.34 H Estimated GFR 57 L POC Glucose 226 H Random Glucose 227 H D Calcium 8.8 Magnesium 1.7 Vancomycin Trough 11/09/17 11/09/17 11/09/17 07:41 07:53 08:22 WBC RBC Hgb Hct MCV MCH MCHC RDW Plt Count MPV Neut % (Auto) Lymph % (Auto) [place] % (Auto) Eos % (Auto) Baso % (Auto) Neut # (Auto) Lymph # (Auto) [place] # (Auto) Eos # (Auto) Baso # (Auto) WBC Differential Differential Comment Sodium 143 Potassium 3.7 Chloride 109 H Carbon Dioxide 26.8 Anion Gap 7 BUN 10 Creatinine 1.14 Estimated GFR 68 L POC Glucose 69 96 Random Glucose 61 L D Calcium 9.1 Magnesium Vancomycin Trough Microbiology 11/08/17 08:54 Tissue - Foot Gram Stain - Final 11/08/17 08:54 Wound - Toe Gram Stain - Final 11/08/17 08:54 Tissue - Foot Fungal Smear - Final No fungal elements seen 11/08/17 08:54 Wound - Toe Fungal Smear - Final No fungal elements seen 11/06/17 15:40 Blood - Peripheral Aerobic Blood Culture - Preliminary No growth in 2 days 11/06/17 15:40 Blood - Peripheral Anaerobic Blood Culture - Preliminary No growth in 2 days 11/06/17 15:45 Blood - Peripheral Aerobic Blood Culture - Preliminary No growth in 2 days 11/06/17 15:45 Blood - Peripheral Anaerobic Blood Culture - Preliminary No growth in 2 days - Imaging Impressions Ankle X-Ray 11/08/17 00:00 CONCLUSION: 1. Ossification along the distal Achilles tendon with mild soft tissue prominence in this region. 2. Small spur off the inferior calcaneus. Assessment and Plan - Assessment (1) Diabetic foot ulcer Code(s): E11.621 - Type 2 diabetes mellitus with foot ulcer; L97.509 - Non- pressure chronic ulcer of other part of unspecified foot with unspecified severity Status: Acute Plan: Diabetic foot wound Osteomyelitis - The patient states he has been followed by his saddle and harness maker, Dr. Houston, who advised the patient to come to the hospital for admission. The patient was sent with paperwork requested admission to medicine with IV antibiotics, vancomycin, Zosyn, as well as a three-phase bone scan and arterial brachial indexes to be ordered with a consultation to podiatry. - Extremity Arterial Study (11/06/17) 1. No significant stenosis is suspected. Normal ABIs. - SPECT Scan-Bone NM (11/07/17) 1. Abnormal 3 phase bone scan demonstrating increasing prominent uptake on all 3 phases was localized to the middle phalanx and PIP joint of the fourth digit of the left foot. The findings are characteristic of osteomyelitis. - Zosyn IV stopped on 11/06 - Cont. Vanco with pharmacy to dose - Appreciate consult from podiatry, Dr. Chahal - Pt underwent Left fourth digit amputation at [facility] on 08/09/[address] Chahal - Await pathology and culture results to determine length of Abd therapy prior to discharge. - Pain control PRN - Dressing changes per podiatry Hypothyroid - Continue home dose of Synthroid and Cytomel HTN (hypertension) - Cont. home meds Drug-induced Parkinson's disease - Chronic Bipolar depression - Continue home Latuda 40 mg PO daily and Seroquel 125 mg QHS Diabetes mellitus type 2, insulin dependent - Patient on insulin pump, continue home insulin pump - Accu checks ACHS DVT prophylaxis with SCDs The exam, history, and the medical decision-making described in the above note were completed with the assistance of the mid-level provider. I reviewed and agree with the findings presented. I attest that I had a [id number] encounter with the patient on the same day, and personally performed and documented my assessment and findings in the medical record. (1) Diabetic foot ulcer Qualifiers: Diabetic foot ulcer location: toe Diabetes mellitus type: type 1 Laterality : left Non-pressure ulcer stage: limited to breakdown of skin Qualified Code(s ): E10.621 - Type 1 diabetes mellitus with foot ulcer; L97.521 - Non-pressure chronic ulcer of other part of left foot limited to breakdown of skin
--- NOTE | 2017-11-09 17:48 | P.PNPOD ---
Subjective Interval history: s/p left 4th toe amputation on 10/19 with . Pt states there is a little ''ache'' to the surgical site but otherwise he is feeling well. Pt denies any n/ v/f/h/c/sob. Physical Exam Vital signs: Vital Signs 11/08/17 20:49 11/09/17 00:19 11/09/17 04:15 Temperature 98.9 F 97.0 F L 98.8 F Pulse Rate 91 H 78 89 Respiratory Rate 21 20 18 Blood Pressure 147/87 H 159/77 H 152/94 H Pulse Oximetry 96 97 96 11/09/17 08:00 11/09/17 12:00 Temperature 97.8 F 97.9 F Pulse Rate 77 100 H Respiratory Rate 20 18 Blood Pressure 157/87 H 151/84 H Pulse Oximetry 98 97 Intake & Output 11/08/17 11/09/17 11/09/17 18:59 06:59 18:59 Intake Total 2235.0 / 2235.0 1397.5 / 1397.5 1457.5 / 1457.5 Output Total 685 / 685 1100 / 1100 850 / 850 Balance 1550.0 / 1550.0 297.5 / 297.5 607.5 / 607.5 Weight 125 kg Intake: IV 1135.0 / 1135.0 617.5 / 617.5 617.5 / 617.5 Zosyn 3.375 GM Premix 50 ML @ 100 / 100 100 / 100 100 / 100 100 mls/hr IV.SIG Q6H LISA Rx#: [id number] Vancomycin Inj 1,750 MG In NS 1035.0 / 1035.0 517.5 / 517.5 517.5 / 517.5 Inj 500 ML @ 250 mls/hr IV.SIG Q12H LISA Rx#:[id number] Oral 600 / 600 780 / 780 840 / 840 Anesthesia Amount 500 / 500 Output: Urine 675 / 675 1100 / 1100 850 / 850 Estimated Blood Loss 10 / 10 Other: Date of Last Bowel Movement 11/07/17 # Bowel Movements 0 3 Narrative: Left 4th digit amputation site is well coapted, all sutures intact, mild sanginous drainage. No erythema, no edema. Medications and Allergies Active Medications: Active Medications Acetaminophen (Tylenol) 650 mg PO Q4H PRN PRN Reason: Temp > 100.4 Hydrocodone Bitart/Acetaminophen ([employer] 10/325) 1 tab PO Q4H PRN PRN Reason: pain 2-10 Last Admin: 11/09/17 17:39 Dose: 1 tab Al Hydroxide/Mg Hydroxide (Milk Of Magnjohn Liq) 30 ml PO Q12H PRN PRN Reason: Mild Constipation Aspirin (Ecotrin) 81 mg PO DAILY [facility] Last Admin: 11/09/17 08:23 Dose: 81 mg Chlorhexidine Gluconate (Chlorhexidine 2% Cloth) 3 pack TOPICAL [employer]IST [facility] Stop: 11/11/17 04:45 Cyclobenzaprine HCl (Flexeril) 10 mg PO TID PRN PRN Reason: MUSCLE SPASM Fluticasone/Vilanterol (Breo Ellipta 200/25 Mcg Inh) 1 puff INH DAILY [facility] Last Admin: 11/09/17 08:24 Dose: Not Given Gabapentin (Neurontin) 600 mg PO BID [facility] Last Admin: 11/09/17 08:23 Dose: 600 mg Hydromorphone HCl (Dilaudid Pf Inj) 1 mg IV.PUSH Q4H PRN PRN Reason: breakthrough pain over 6 Last Admin: 11/09/17 15:06 Dose: 1 mg Pharmacy Profile Note (Vancomycin Consult Pharmacy) 0 mls @ 0 mls/hr OTHER UNSCH [facility] Piperacillin/Tazobactam/Dextrose (Zosyn 3.375 Gm Premix) 50 mls @ 100 mls/hr IV.SIG Q6H [facility] Last Infusion: 11/09/17 15:36 Dose: Infused Vancomycin HCl 1,750 mg/ (Sodium Chloride) 517.5 mls @ 250 mls/hr IV.SIG Q12H [facility] Last Infusion: 11/09/17 13:30 Dose: Infused Lactated Ringer's (Lr 1000 Ml Inj) 1,000 mls @ 30 mls/hr IV.SIG .Q24H [facility] Stop: 11/11/17 04:45 Last Admin: 11/09/17 04:48 Dose: Not Given Sodium Chloride (Ns Inj) 500 mls @ 30 mls/hr IV.SIG .Q10H [facility] Stop: 11/11/17 04:45 Levothyroxine Sodium (Synthroid) 250 mcg PO DAILY@0600 [facility] Last Admin: 11/09/17 07:36 Dose: 250 mcg Liothyronine Sodium (Cytomel) 10 mcg PO DAILY [facility] Last Admin: 11/09/17 08:23 Dose: 10 mcg Lurasidone HCl (Latuda) 80 mg PO DAILY [facility] Last Admin: 11/09/17 08:23 Dose: 80 mg Metoprolol Tartrate (Lopressor) 25 mg PO [employer] [facility] Stop: 11/11/17 04:45 Miscellaneous Information ([facility] Ordered Lab Info) 0 each OTHER ONCE ONE Stop: 11/10/17 11:46 Ondansetron HCl (Zofran Inj) 4 mg IV.PUSH Q6H PRN PRN Reason: NAUSEA OR VOMITING Pantoprazole Sodium (Protonix) 40 mg PO BID [facility] Last Admin: 11/09/17 08:23 Dose: 40 mg Povidone Iodine (Betadine 5% Antisepsis Kit) 1 applicatio EACH NARE [employer] MARKETING SPECIALIST [facility] Stop: 11/11/17 04:45 Quetiapine Fumarate (Seroquel) 125 mg PO [facility] Last Admin: 11/08/17 20:57 Dose: 125 mg Senna/Docusate Sodium (Lida-Colace) 1 tab PO BID [facility] Last Admin: 11/09/17 08:24 Dose: Not Given Allergies Allergy/AdvReac Type Severity Reaction Status Date / Time diltiazem Allergy Mild Edema Verified 11/06/17 15:26 isradipine Allergy Mild Edema Verified 11/06/17 15:26 nicardipine Allergy Mild Edema Verified 11/06/17 15:26 nifedipine Allergy Mild Edema Verified 11/06/17 15:26 nimodipine Allergy Mild Edema Verified 11/06/17 15:26 verapamil Allergy Mild Edema Verified 11/06/17 15:26 amlodipine AdvReac Intermediate enlarged Verified 11/06/17 15:26 liver atorvastatin AdvReac Intermediate enlarged Verified 11/06/17 15:26 liver pravastatin AdvReac Intermediate enlarged Verified 11/06/17 15:26 liver simvastatin AdvReac Intermediate enlarged Verified 11/06/17 15:26 liver cholestyramine AdvReac Mild NAUSEA Verified 11/06/17 16:01 enalaprilat AdvReac Mild Cough Verified 11/06/17 16:01 MRI PRECAUTION AdvReac Severe SPINAL Uncoded 11/06/17 16:00 STIMULATOR *MDRO Multi-Drug Resistant AdvReac Unknown none Uncoded 11/06/17 16:00 Organism Home Medications Medication Instructions Recorded Confirmed Type albuterol sulfate [Ventolin HFA] 2 puff INHALATION Q4H PRN 11/06/17 11/06/17 History aspirin 81 mg PO DAILY 11/06/17 11/06/17 History cyclobenzaprine 10 mg PO TID 11/06/17 11/06/17 History ergocalciferol (vitamin D2) 50,000 unit PO QWEEK 11/06/17 11/06/17 History [Vitamin D2] fluticasone-vilanterol [Breo 1 inh INHALATION DAILY 11/06/17 11/06/17 History Ellipta] gabapentin 600 mg PO BID 11/06/17 11/06/17 History ibuprofen 600 mg PO Q6HR PRN 11/06/17 11/06/17 History levothyroxine 250 mcg PO DAILY 11/06/17 11/06/17 History liothyronine [Cytomel] 10 mcg PO DAILY 11/06/17 11/06/17 History lurasidone [Latuda] 80 mg PO DAILY 11/06/17 11/06/17 History meloxicam [Mobic] 15 mg PO DAILY 11/06/17 11/06/17 History metoprolol tartrate [Lopressor] 200 mg PO BID 11/06/17 11/06/17 History pantoprazole 40 mg PO BID 11/06/17 11/06/17 History quetiapine [Seroquel] 125 mg PO HS 11/06/17 11/06/17 History quetiapine [Seroquel] 125 mg PO HS 11/06/17 11/06/17 History spironolactone [Aldactone] 100 mg PO BID 11/06/17 11/06/17 History sumatriptan succinate [Imitrex] 100 mg PO ONCE PRN 11/06/17 11/06/17 History Results - Labs CBC & Chem 7: 11/09/17 07:41 11/09/17 07:41 Laboratory Results - last 24 hr 11/09/17 11/09/17 11/09/17 07:41 07:41 07:53 WBC 4.8 RBC 3.85 L Hgb 11.2 L Hct 32.8 L MCV 85.2 MCH 29.1 MCHC 34.2 RDW 16.3 Plt Count 153 MPV 9.5 Neut % (Auto) 62.0 Lymph % (Auto) 24.4 Kings % (Auto) 9.9 H Eos % (Auto) 3.1 Baso % (Auto) 0.6 Neut # (Auto) 3.0 Lymph # (Auto) 1.2 Kings # (Auto) 0.5 Eos # (Auto) 0.1 Baso # (Auto) 0.0 WBC Differential . Differential Comment Auto diff final Sodium 143 Potassium 3.7 Chloride 109 H Carbon Dioxide 26.8 Anion Gap 7 BUN 10 Creatinine 1.14 Estimated GFR 68 L POC Glucose 69 Random Glucose 61 L D Calcium 9.1 11/09/17 11/09/17 11/09/17 08:22 12:25 17:15 WBC RBC Hgb Hct MCV MCH MCHC RDW Plt Count MPV Neut % (Auto) Lymph % (Auto) Kings % (Auto) Eos % (Auto) Baso % (Auto) Neut # (Auto) Lymph # (Auto) Kings # (Auto) Eos # (Auto) Baso # (Auto) WBC Differential Differential Comment Sodium Potassium Chloride Carbon Dioxide Anion Gap BUN Creatinine Estimated GFR POC Glucose 96 162 H 342 H Random Glucose Calcium Microbiology 11/08/17 08:54 Tissue - Foot Gram Stain - Final 11/08/17 08:54 Tissue - Foot Wound Culture - Preliminary No growth in 24 hours 11/08/17 08:54 Wound - Toe Gram Stain - Final 11/08/17 08:54 Wound - Toe Wound Culture - Preliminary No growth in 24 hours 11/06/17 15:40 Blood - Peripheral Aerobic Blood Culture - Preliminary No growth in 3 days 11/06/17 15:40 Blood - Peripheral Anaerobic Blood Culture - Preliminary No growth in 3 days 11/06/17 15:45 Blood - Peripheral Aerobic Blood Culture - Preliminary No growth in 3 days 11/06/17 15:45 Blood - Peripheral Anaerobic Blood Culture - Preliminary No growth in 3 days 11/08/17 08:54 Tissue - Foot Fungal Smear - Final No fungal elements seen 11/08/17 08:54 Wound - Toe Fungal Smear - Final No fungal elements seen Assessment and Plan - Assessment (1) Diabetic foot ulcer Code(s): E11.621 - Type 2 diabetes mellitus with foot ulcer; L97.509 - Non- pressure chronic ulcer of other part of unspecified foot with unspecified severity Status: Acute - Plan - dressing changed at bedside today- healing well - WBAT in surgical shoe - ok to d/c on broad spectrum PO abx, cxs will be followed outpt in office - no HHC needed, dressing changes to be done in office - f/u with 1 week after d/c (1) Diabetic foot ulcer Qualifiers: Diabetic foot ulcer location: toe Diabetes mellitus type: type 1 Laterality : left Non-pressure ulcer stage: limited to breakdown of skin Qualified Code(s ): E10.621 - Type 1 diabetes mellitus with foot ulcer; L97.521 - Non-pressure chronic ulcer of other part of left foot limited to breakdown of skin
[2017-11-09] MEDS: QUEtiapine 25 MG Tablet PO SCH (20:13)
[2017-11-10] MEDS: Vancomycin Inj 1,750 MG in Sodium Chlor 0.9% Inj 500 ML IV.SIG SCH ×2 (00:26→12:28)
[2017-11-10] MEDS: HYDROmorphone PF Inj 2 MG/ML Vial IV.PUSH PRN ×4 (00:41→16:36)
[2017-11-10] MEDS: Levothyroxine 125 MCG Tablet PO SCH (05:44)
[2017-11-10] MEDS: Piperacil/Tazo 3.375 GM Premix 50 ML IV.SIG SCH ×3 (05:45→15:15)
[2017-11-10] MEDS: Liothyronine 5 MCG Tablet PO SCH (08:35)
[2017-11-10] MEDS: Lurasidone 80 MG Tablet PO SCH (08:35)
[2017-11-10] MEDS: Gabapentin 300 MG Capsule PO SCH (08:35)
[2017-11-10] MEDS: Senna/Docusate Sodium 8.6/50 MG Tablet PO SCH (08:36)
--- NOTE | 2017-11-10 09:34 | P.PNIM ---
Subjective Interval history: No new complaints Pt had dressing change yesterday by Dr. Joaquin Physical Exam Vital signs: Vital Signs 11/09/17 12:00 11/09/17 16:00 11/09/17 20:00 Temperature 97.9 F 97.9 F 99.3 F Pulse Rate 100 H 94 H 88 Respiratory Rate 18 20 17 Blood Pressure 151/84 H 149/84 H 161/86 H Pulse Oximetry 97 97 96 11/10/17 00:00 Temperature 97.9 F Pulse Rate 86 Respiratory Rate 17 Blood Pressure 147/86 H Pulse Oximetry 98 Intake & Output 11/09/17 11/10/17 11/10/17 18:59 06:59 18:59 Intake Total 1457.5 / 1457.5 857.5 / 857.5 50 / 50 Output Total 850 / 850 Balance 607.5 / 607.5 857.5 / 857.5 50 / 50 Intake: IV 617.5 / 617.5 617.5 / 617.5 50 / 50 Zosyn 3.375 GM Premix 50 ML @ 100 / 100 100 / 100 50 / 50 100 mls/hr IV.SIG Q6H [facility] Rx#: [id number] Vancomycin Inj 1,750 MG In NS 517.5 / 517.5 517.5 / 517.5 Inj 500 ML @ 250 mls/hr IV.SIG Q12H [facility] Rx#:[id number] Oral 840 / 840 240 / 240 Output: Urine 850 / 850 Other: # Voids 2 Date of Last Bowel Movement 11/09/17 # Bowel Movements 3 Narrative: GENERAL: This is a well-nourished, well-developed patient, in no apparent distress. Cardiac: Regular RESP: CTA bilaterally ABD: +BS, soft ND/NT Ext: Left foot bandages are c/d/i Results - Labs CBC & Chem 7: 11/09/17 07:41 11/09/17 07:41 Laboratory Results - last 24 hr 11/09/17 11/09/17 11/09/17 12:25 17:15 20:20 POC Glucose 162 H 342 H 176 H 11/10/17 07:38 POC Glucose 118 H Microbiology 11/08/17 08:54 Tissue - Foot Gram Stain - Final 11/08/17 08:54 Tissue - Foot Wound Culture - Preliminary No growth in 24 hours 11/08/17 08:54 Wound - Toe Gram Stain - Final 11/08/17 08:54 Wound - Toe Wound Culture - Preliminary No growth in 24 hours 11/06/17 15:40 Blood - Peripheral Aerobic Blood Culture - Preliminary No growth in 3 days 11/06/17 15:40 Blood - Peripheral Anaerobic Blood Culture - Preliminary No growth in 3 days 11/06/17 15:45 Blood - Peripheral Aerobic Blood Culture - Preliminary No growth in 3 days 11/06/17 15:45 Blood - Peripheral Anaerobic Blood Culture - Preliminary No growth in 3 days 11/08/17 08:54 Tissue - Foot Fungal Smear - Final No fungal elements seen 11/08/17 08:54 Wound - Toe Fungal Smear - Final No fungal elements seen Assessment and Plan - Assessment (1) Diabetic foot ulcer Code(s): E11.621 - Type 2 diabetes mellitus with foot ulcer; L97.509 - Non- pressure chronic ulcer of other part of unspecified foot with unspecified severity Status: Acute Plan: Diabetic foot wound Osteomyelitis - The patient states he has been followed by his admiralty lawyer, Dr. Houston, who advised the patient to come to the hospital for admission. The patient was sent with paperwork requested admission to medicine with IV antibiotics, vancomycin, Zosyn, as well as a three-phase bone scan and arterial brachial indexes to be ordered with a consultation to podiatry. - Extremity Arterial Study (11/06/17) 1. No significant stenosis is suspected. Normal ABIs. - SPECT Scan-Bone NM (11/07/17) 1. Abnormal 3 phase bone scan demonstrating increasing prominent uptake on all 3 phases was localized to the middle phalanx and PIP joint of the fourth digit of the left foot. The findings are characteristic of osteomyelitis. - Zosyn IV stopped on 11/06 - Cont. Vanco with pharmacy to dose - Appreciate consult from podiatry, Dr. Chahal - Pt underwent Left fourth digit amputation at [facility] on 08/09/[address] Chahal - Pathology pending, discussed with pathology department today and should result today - Dressing changed at bedside by podiatry on 11/09/17 and noted to be healing well - Pt recommended WBAT in surgical shoe - Podiatry will follow cxs outpt in office - Dressing changes to be done in office by podiatry - f/u with 1 week after d/c Hypothyroid - Continue home dose of Synthroid and Cytomel HTN (hypertension) - Cont. home meds Drug-induced Parkinson's disease - Chronic Bipolar depression - Continue home Latuda 40 mg PO daily and Seroquel 125 mg QHS Diabetes mellitus type 2, insulin dependent - Patient on insulin pump, continue home insulin pump - Accu checks ACHS DVT prophylaxis with SCDs (1) Diabetic foot ulcer Qualifiers: Diabetic foot ulcer location: toe Diabetes mellitus type: type 1 Laterality : left Non-pressure ulcer stage: limited to breakdown of skin Qualified Code(s ): E10.621 - Type 1 diabetes mellitus with foot ulcer; L97.521 - Non-pressure chronic ulcer of other part of left foot limited to breakdown of skin
[2017-11-10] MEDS ORDERED: Pharmacy Ordered Lab Info OTHER ONE (11:45)
[2017-11-10 12:21] VITALS: RESP 20
[2017-11-10 17:13] VITALS: BP 163/90; PULSE 85; TEMP 98; O2SAT 95
--- NOTE | 2017-11-14 16:26 | P.DS ---
Date of admission: 11/06/17 16:26 Primary care physician: Emmett Velasco MD, PhD Attending physician on discharge: Anthony Glover Anticipated date of discharge: 11/10/17 Brief History from admission: This is a 51 y/o male with hypertension, hyperlipidemia, hypothyroidism, diabetes, diabetic nephropathy, rheumatoid arthritis, bipolar disorder, and drug -induced Parkinson's disease. Patient reports he has been, "battling," this toe for about two months. Patient does not recall an initial injury or cut to the skin. Patient denies pain. Patient has been following with Dr. Chahal outpatient podiatry regarding this ulceration. Dr. Chahal referred [place] [facility] [place], IV Vancomyacin and IV Zosyn, JULIANE and triple phase bone scan. Of note patient has recently gotten started on an insulin pump and reports his blood sugars controlled much better. Patient denies fevers, chills, N/V/D/C, chest pain or SOB. Past Medical History Generalized anxiety disorder Conn's syndrome Bipolar disorder type I, mixed History of thyroid cancer Chronic kidney disease stage I Obesity Diabetes with neuropathy and nephropathy Essential hypertriglyceridemia Lumbar facet syndrome with chronic pain Esophageal reflux disorder Hypertension Hypothyroidism Metabolic syndrome Migraine headaches Obesity Panic disorder without turgor phobia Postlaminectomy syndrome Rheumatoid arthritis 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 asthmatic bronchitis Past Surgical History Cardiac catheter reportedly negative Bronchoscopy [place] [address] 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 Houston, who advised the patient to come to the hospital for admission. The patient was sent with paperwork requested admission to medicine with IV antibiotics, vancomycin, Zosyn, as well as a three-phase bone scan and arterial brachial indexes to be ordered with a consultation to podiatry. Extremity Arterial Study (11/06/17) --> No significant stenosis is suspected. Normal ABIs. SPECT Scan-Bone NM (11/07/17) --> Abnormal 3 phase bone scan demonstrating increasing prominent uptake on all 3 phases was localized to the middle phalanx and PIP joint of the fourth digit of the left foot. The findings are characteristic of osteomyelitis. Zosyn IV stopped on 11/06. Vanco was continued with pharmacy dosing. Dr. Chahal followed the pt during admission and pt underwent Left fourth digit amputation at [facility] on 08/09/[address] Chahal. Pathology revealed left 4th digit with acute ulceration of the distal toe with underlying acute osteomyelitis of the bone with clear margins at the proximal resections. Pts dressing was changed at bedside by podiatry on 11/09/17 and noted to be healing well. Pt recommended WBAT in surgical shoe. Podiatry will follow cxs outpt in office. Dressing changes to be done in office by podiatry Pt was discharged on Augmentin TID x 7 days. Pt is to f/u with 1 week after d/c Hypothyroid - Continue home dose of Synthroid and Cytomel HTN (hypertension) - Cont. home meds Drug-induced Parkinson's disease - Chronic Bipolar depression - Continue home Latuda 40 mg PO daily and Seroquel 125 mg QHS Diabetes mellitus type 2, insulin dependent - Patient on insulin pump, continue home insulin pump and accuchekcs at home - Time Spent with Patient Total time spent providing and/or coordinating discharge services: - Quality: VTE Deep Vein Thrombosis/Pulmonary Embolism Present on Admission: No Results Procedures completed during hospitalization: See summary above - Impressions ITS Impressions Extremity Arterial Study 11/06/17 00:00 CONCLUSION: 1. No significant stenosis is suspected. Normal ABIs. SPECT Scan-Bone NM 11/07/17 00:00 CONCLUSION: 1. Abnormal 3 phase bone scan demonstrating increasing prominent uptake on all 3 phases was localized to the middle phalanx and PIP joint of the fourth digit of the left foot. The findings are characteristic of osteomyelitis. Ankle X-Ray 11/08/17 00:00 CONCLUSION: 1. Ossification along the distal Achilles tendon with mild soft tissue prominence in this region. 2. Small spur off the inferior calcaneus. Discharge Plan - Discharge Disposition Patient Disposition: 01 Discharge Home - Discharge Condition Condition: Stable - Discharge Order Discharge Orders: Discharge Order (Routine); Ordered 11/10/17 Ordered By: Anthony Glover - Discharge Details Anticipated Discharge Date: 11/10/17 - Physicians Team Primary Care Provider: Emmett Velasco Attending Provider: Camron Tiwari Other Providers: Rebeca Chahal DPM
--- NOTE | 2017-11-16 06:45 | MR ---
cc: Rebeca Chahal DPM DATE: 11/08/2017 PREOPERATIVE DIAGNOSIS: Left fourth digit osteomyelitis. POSTOPERATIVE DIAGNOSIS: Left fourth digit osteomyelitis. PROCEDURE PERFORMED: Left fourth digit amputation at metatarsophalangeal joint SURGEON: Rebeca Chahal DPM [employer] INSPECTOR: None. ANESTHESIA: General. ESTIMATED BLOOD LOSS: 10 mL HEMOSTASIS: Pneumatic ankle tourniquet set at 250 mmHg. INJECTABLES: 10 mL of 0.5% Marcaine plain. MATERIALS: 2-0 and 3-0 Prolene. COMPLICATIONS: None. INDICATIONS FOR PROCEDURE: The patient is a 51-year-old male who presented to the office with worsening right fourth digit infection. The patient was encouraged to proceed to the emergency department as he had failed outpatient oral antibiotics and in-house. Patient was unable to have an MRI performed secondary to neural stent implant in his back. Therefore, 3-phase bone scan was performed, which did reveal osteomyelitis to the middle and proximal phalanx PIPJ. Therefore, decision was made to disarticulate the metatarsophalangeal joint. The patient understands all risks, benefits, alternatives associated with the procedure. He would like to proceed with left fourth digit amputation. DESCRIPTION OF PROCEDURE: The patient was brought back to the operating room and placed on the operating table in the supine position. General anesthesia was then induced at this time. The left foot was prepped and draped in the normal sterile fashion. Prior to prepping, a pneumatic ankle tourniquet was placed around the left ankle, was well padded. Attention was then directed to the left foot where the fourth digit was noted to be erythematous, edematous with medial and lateral PIPJ ulcerations. Esmarch was utilized to exsanguinate and the ankle tourniquet was inflated. A racquet incision was made about the fourth metatarsophalangeal joint. This incision was carried down through skin and subcutaneous tissue with care to retract all vital neurovascular structures. Proximal metatarsophalangeal joint was identified. Medial and lateral collateral ligaments were transected and the 4th digit was disarticulated and passed off the field. This was sent to pathology. Copious irrigation was then performed. The base of the proximal phalanx was utilized at the proximal clearing margin. Following copious irrigation, soft tissue was sent to microbiology for culture. After copious irrigation, vancomycin powder was applied. Following application of vancomycin powder, 2-0 and 3-0 Vicryl was applied to the site and utilized to close subcutaneous tissue. 2-0 and 3-0 Prolene were used to close skin. The patient was then dressed with Adaptic, 4 x 4s, Mark, and Dave. The patient tolerated the procedure and anesthesia well. He was transferred from the OR to PACU with vital signs stable and neurovascular status intact to remaining digits of the left foot. We will await OR cultures, patient is to continue on IV antibiotics. He is to follow up in office within 1 weeks of discharge. Heel weight bearing in post op shoe. DOT Castañeda , 06:14 AM , 06:22 AM CHATA
== END 2017-11-10 17:57 | disposition home or self-care (01) ==
LOC: NEPE 14:38 → NEDA 16:26 → N07 18:00
PROVIDERS: ADMIT Hospitalist; ATTEND Hospitalist

== ENCOUNTER 2018-03-16 09:18 | Observation (INO) ==
[2018-03-16] MEDS ORDERED: Sod Chloride 0.9% Inj 1,000 ML IV.CONT SCH (09:45)
--- NOTE | 2018-03-16 09:52 | CT ---
EXAM DATE: 03/16/2018 9:48 AM EST AGE/SEX: 52 years / Male INDICATIONS: Stroke alert, blurred vision and left side numbness. CLINICAL DATA: This is the patient's initial encounter. Patient reports that signs and symptoms have been present for 1 day and indicates a pain score of 0/10. MEDICAL/SURGICAL HISTORY: Non-responsive. Non-responsive. RADIATION DOSE: 45.23 CTDI (mGy) COMPARISON: [facility] [place], CT BRAIN W/O CONTRAST, 01/03/2017. . TECHNIQUE: CT of the head without contrast. Using automated exposure control and adjustment of the mA and/or kV according to patient size, radiation dose was kept as low as reasonably achievable to ob tain optimal diagnostic quality images. DICOM format image data is available electronically for revi ew and comparison. FINDINGS: Cerebrum: The ventricles are normal for age. No evidence of midline shift, mass lesion, hemorrhage or acute infarction. No extraaxial fluid collections are seen. Posterior Fossa: The cerebellum and brainstem are intact. The 4th ventricle is midline. The cerebe llopontine angle is unremarkable. Extracranial: The visualized portion of the orbits is intact. Skull: The calvaria is intact. No evidence of skull fracture. CONCLUSION: Negative CT Head non contrast. Report was called by [ Jose to Dr. Martínez at 0949 hours] Electronically signed by: Wilberto Garcia MD 03/16/2018 9:51 AM EST
[2018-03-16 09:57] LABS: Baso % (Auto) 0.6 % (0.0-2.0); Eos # (Auto) 0.1 th/mm3 (0.0-0.4); Eos % (Auto) 1.4 % (0.0-4.0); Hematocrit 36.9 % (39.0-51.0); Hemoglobin 12.2 gm/dL (13.0-17.0); Lymph # (Auto) 1.3 th/mm3 (1.0-4.8); Lymph % (Auto) 25.1 % (9.0-44.0); Mean Corpuscular HGB Conc 33.1 % (32.0-36.0); Mean Corpuscular Hemoglobin 27.2 pg (27.0-34.0); Mean Corpuscular Volume 82.2 fL (80.0-100.0); Mean Platelet Volume 10.8 fL (7.0-11.0); Mono # (Auto) 0.4 th/mm3 (0.0-0.9); Mono % (Auto) 8.2 % (0.0-8.0); Neut # (Auto) 3.3 th/mm3 (1.8-7.7); Neut % (Auto) 64.7 % (16.0-70.0); Platelet Count 117 th/mm3 (150-450); Red Blood Count 4.49 mil/mm3 (4.50-5.90); Red Cell Distribution Width 16.6 % (11.6-17.2); White Blood Count 5.1 th/mm3 (4.0-11.0)
--- NOTE | 2018-03-16 10:01 | ED ---
HPI General Chief Complaint: Neuro Symptoms/Deficit Stated Complaint: numbness left side Time Seen by Provider: 03/16/18 09:36 Source: patient Mode of arrival: ambulatory Limitations: no limitations History of Present Illness HPI Narrative: Patient was examined and seen at 0935 upon arrival to the room NIHSS scale performed at the same time Patient presents through the front door/triage complaining of onset of left peripheral blurry vision as well as left-sided cheek tingling that he woke up with at about 05 30 today. Patient has a past medical history of hypertension hypercholesterolemia diabetes on insulin pump. Patient has a history of chronic peripheral neuropathy to bilateral lower extremities which he continues to feel and is not new. Patient is able to ambulate and move all extremities on his own and ambulated into the ER by himself. Patient does not have any difficulty speaking Related Data Home Medications Medication Instructions Recorded Confirmed albuterol sulfate [Ventolin HFA] 2 puff INHALATION Q4H PRN 11/06/17 03/16/18 aspirin 81 mg PO DAILY 11/06/17 03/16/18 cyclobenzaprine 10 mg PO TID 11/06/17 03/16/18 ergocalciferol (vitamin D2) 50,000 unit PO QWEEK 11/06/17 03/16/18 [Vitamin D2] fluticasone-vilanterol [Breo 1 inh INHALATION DAILY 11/06/17 03/16/18 Ellipta] gabapentin 600 mg PO BID 11/06/17 03/16/18 levothyroxine 250 mcg PO DAILY 11/06/17 03/16/18 liothyronine [Cytomel] 10 mcg PO DAILY 11/06/17 03/16/18 lurasidone [Latuda] 80 mg PO DAILY 11/06/17 03/16/18 meloxicam [Mobic] 15 mg PO DAILY 11/06/17 03/16/18 metoprolol tartrate [Lopressor] 200 mg PO BID 11/06/17 03/16/18 pantoprazole 40 mg PO BID 11/06/17 03/16/18 quetiapine [Seroquel] 125 mg PO HS 11/06/17 03/16/18 spironolactone [Aldactone] 100 mg PO BID 11/06/17 03/16/18 sumatriptan succinate [Imitrex] 100 mg PO ONCE PRN 11/06/17 03/16/18 morphine 15 mg PO Q12H 02/06/18 03/16/18 pregabalin [Lyrica] 150 mg PO BID 02/06/18 03/16/18 Allergies Allergy/AdvReac Type Severity Reaction Status Date / Time diltiazem Allergy Mild Edema Verified 03/16/18 09:31 isradipine Allergy Mild Edema Verified 03/16/18 09:31 nicardipine Allergy Mild Edema Verified 03/16/18 09:31 nifedipine Allergy Mild Edema Verified 03/16/18 09:31 nimodipine Allergy Mild Edema Verified 03/16/18 09:31 verapamil Allergy Mild Edema Verified 03/16/18 09:31 amlodipine AdvReac Intermediate enlarged Verified 03/16/18 09:31 liver atorvastatin AdvReac Intermediate enlarged Verified 03/16/18 09:31 liver pravastatin AdvReac Intermediate enlarged Verified 03/16/18 09:31 liver simvastatin AdvReac Intermediate enlarged Verified 03/16/18 09:31 liver cholestyramine AdvReac Mild NAUSEA Verified 03/16/18 09:28 enalaprilat AdvReac Mild Cough Verified 03/16/18 09:28 Review of Systems ROS: all other systems reviewed are negative [facility] Medical History Medical History Diabetes (Acute) High cholesterol (Acute) Hypertension (Acute) MDRO (multiple drug resistant organisms) resistance (Acute ~02/06/18) Presence of insulin pump (Acute) Social History Social History Substance History: No History of Abuse Second Hand Smoke Exposure: No Smoking Status: Never smoker How Often Do You Have a Drink Containing Alcohol: 2 to 3 times a week Recent Travel in [facility] within the Last 8 Weeks: No Recent Out of Country Travel within the Last 8 Weeks: No Immunization History Tetanus Immunization: >5 Years Exam Narrative Exam Narrative: GENERAL: He is male apparent distress. SKIN: Warm and dry. HEAD: Atraumatic. Normocephalic. EYES: Pupils equal and round. No scleral icterus. No injection or drainage. ENT: No nasal bleeding or discharge. Mucous membranes pink and moist. NECK: Trachea midline. No JVD. CARDIOVASCULAR: Regular rate and rhythm. no rubs or gallops RESPIRATORY: No accessory muscle use. Clear to auscultation. Breath sounds equal bilaterally. GASTROINTESTINAL: Abdomen soft, non-tender, nondistended. No rebound or guarding MUSCULOSKELETAL: Extremities without clubbing, cyanosis, or edema. No obvious deformities. NEUROLOGICAL: Awake and alert. No obvious cranial nerve deficits. Motor grossly within normal limits. Five out of 5 muscle strength in the arms and legs. Normal speech....ABNORMAL FINDINGS LEFT CHEEK NUMBNESS, AND LEFT PERIPHERAL UPPER/LOWER QUANDRANT BLURRED VISION, NO VISION LOSS. PSYCHIATRIC: Appropriate mood and affect; insight and judgment normal. Course Initial Documented Vital Signs Temperature 98.6 F 03/16/18 09:25 Pulse Rate 113 H 03/16/18 09:25 Respiratory Rate 20 03/16/18 09:25 Blood Pressure 240/110 H 03/16/18 09:25 Pulse Oximetry 99 03/16/18 09:25 Last Documented Vital Signs Temperature 97.8 F 03/16/18 09:59 Pulse Rate 103 H 03/16/18 09:59 Respiratory Rate 18 03/16/18 09:59 Blood Pressure 156/87 H 03/16/18 09:59 Pulse Oximetry 97 03/16/18 09:59 Critical Care Time Critical Care Time: Yes Total Critical Care Time: 45 Attestation: Aggregate critical care time was 45 minutes. Time to perform other separately billable procedures was not included in the critical care time. My time did not include minutes spent treating any other patients simultaneously or on activities that did not directly contribute to the patient's treatment. The services I provided to this patient were to treat and/or prevent clinically significant deterioration I provided critical care services requiring my management, as noted below: Chart data review, documentation time, medication orders and management, vital sign assessments/reviewing monitor data, ordering and reviewing lab tests, ordering and interpreting/reviewing x-rays and diagnostic studies, care of the patient and discussion of the patient with the admitting physicians. NIH Stroke Scale NIH Stroke Scale Level of Consciousness: 0-Alert Orientation Questions: 0-Answers both correct Responds to Commands: 0-Both tasks correct Gaze Eye Movement: 0-Horizontal movement WNL Visual Ruiz: 1-Partial hemianopia Facial Movement: 0-Normal Motor Functions Arm LEFT: 0-No drift Motor Functions Arm RIGHT: 0-No drift Motor Functions Leg LEFT: 0-No drift Motor Functions Leg RIGHT: 0-No drift Limb Ataxia: 0-No ataxia Sensory Loss: 0-No sensory loss Best Language: 0-Normal Articulation: 0-Normal Extinction or Inattention Sensory: 0-Absent Total: 1 Medical Decision Making MDM Narrative Medical decision making narrative: Patient was then immediately taken to CT scan which was read and reading provide aided by radiologist as negative for intracranial hemorrhage Discussed with neurologist Dr. Queen who agreed outside of window for tpa and minimal findings CTA head and neck read and performed by radiologist, which was read as negative [place] of [place] and negative CTA of the carotid and vertebral circulation Patient will be admitted for further evaluation Medical Screen Exam Complete: Yes Emergency Medical Condition: Yes Lab Data Result diagrams: 03/16/18 09:15 03/16/18 09:15 Lab Results 03/16/18 03/16/18 03/16/18 Range/Units 09:15 09:15 09:15 WBC 5.1 (4.0-11.0) th/mm3 RBC 4.49 L (4.50-5.90) mil/mm3 Hgb 12.2 L (13.0-17.0) gm/dL Hct 36.9 L (39.0-51.0) % MCV 82.2 (80.0-100.0) fL MCH 27.2 (27.0-34.0) pg MCHC 33.1 (32.0-36.0) % RDW 16.6 (11.6-17.2) % Plt Count 117 L (150-450) th/mm3 MPV 10.8 (7.0-11.0) fL Neut % (Auto) 64.7 (16.0-70.0) % Lymph % (Auto) 25.1 (9.0-44.0) % Faulkner % (Auto) 8.2 H (0.0-8.0) % Eos % (Auto) 1.4 (0.0-4.0) % Baso % (Auto) 0.6 (0.0-2.0) % Neut # (Auto) 3.3 (1.8-7.7) th/mm3 Lymph # (Auto) 1.3 (1.0-4.8) th/mm3 Faulkner # (Auto) 0.4 (0.0-0.9) th/mm3 Eos # (Auto) 0.1 (0.0-0.4) th/mm3 Baso # (Auto) 0.0 (0.0-0.2) th/mm3 WBC Differential . Differential Comment Auto diff final PT 10.2 (9.8-11.6) sec INR 1.0 Ratio APTT 25.0 (23.4-31.7) sec Sodium 133 L (136-145) meq/L Potassium 4.6 (3.5-5.1) meq/L Chloride 102 (98-107) meq/L Carbon Dioxide 21.6 (21.0-32.0) meq/L Anion Gap 9 (5-15) meq/L BUN 15 (7-18) mg/dL Creatinine 1.43 H (0.60-1.30) mg/dL Estimated GFR 52 L (>89) mL/min POC Glucose (68-110) mg/dl Random Glucose 418 H (74-106) mg/dL Calcium 9.0 (8.5-10.1) mg/dL Total Creatine Kinase 2590 H (39-308) U/L Troponin I Less than 0.02 L (0.02-0.05) ng/mL 03/16/18 Range/Units 09:32 WBC (4.0-11.0) th/mm3 RBC (4.50-5.90) mil/mm3 Hgb (13.0-17.0) gm/dL Hct (39.0-51.0) % MCV (80.0-100.0) fL MCH (27.0-34.0) pg MCHC (32.0-36.0) % RDW (11.6-17.2) % Plt Count (150-450) th/mm3 MPV (7.0-11.0) fL Neut % (Auto) (16.0-70.0) % Lymph % (Auto) (9.0-44.0) % Faulkner % (Auto) (0.0-8.0) % Eos % (Auto) (0.0-4.0) % Baso % (Auto) (0.0-2.0) % Neut # (Auto) (1.8-7.7) th/mm3 Lymph # (Auto) (1.0-4.8) th/mm3 Faulkner # (Auto) (0.0-0.9) th/mm3 Eos # (Auto) (0.0-0.4) th/mm3 Baso # (Auto) (0.0-0.2) th/mm3 WBC Differential Differential Comment PT (9.8-11.6) sec INR Ratio APTT (23.4-31.7) sec Sodium (136-145) meq/L Potassium (3.5-5.1) meq/L Chloride (98-107) meq/L Carbon Dioxide (21.0-32.0) meq/L Anion Gap (5-15) meq/L BUN (7-18) mg/dL Creatinine (0.60-1.30) mg/dL Estimated GFR (>89) mL/min POC Glucose 441 H (68-110) mg/dl Random Glucose (74-106) mg/dL Calcium (8.5-10.1) mg/dL Total Creatine Kinase (39-308) U/L Troponin I (0.02-0.05) ng/mL Imaging Data Radiologist's impression: Head CT 03/16/18 09:36 CONCLUSION: Negative CT Head non contrast. Report was called by [ Jose Martínez at 0949 hours] Head CTA 03/16/18 09:36 CONCLUSION: No acute [place] of [place] vascular findings. Report was called by [Jose Queen at 1003] Neck CTA 03/16/18 09:36 CONCLUSION: 1. Negative CTA of the carotid and vertebral circulation. Discharge Plan Discharge Disposition Patient Disposition: 30 Still Patient Discharge Condition Condition: Stable Discharge Details Diagnosis: Transient cerebral ischemia Physicians Team ED Provider: Renny Martínez Primary Care Provider: UNKNOWN, Attending Provider: Christian Nash Other Providers: Bernardo Queen Discharge Interventions Interventions: Vital Signs Last Done: 03/16/18 10:27 Status ED Status: Admitted Observation Patient
--- NOTE | 2018-03-16 10:06 | CT ---
EXAM DATE: 03/16/2018 10:00 AM EST AGE/SEX: 52 years / Male INDICATIONS: Stroke alert, left side numbness, blurred vision. CLINICAL DATA: This is the patient's initial encounter. Patient reports that signs and symptoms have been present for 1 day and indicates a pain score of 0/10. MEDICAL/SURGICAL HISTORY: Non-responsive. Non-responsive. RADIATION DOSE: 37.83 CTDI (mGy) ; Combined studies COMPARISON: [facility] [place], [place] HEAD W/O CONTRAST, 03/16/2018. . TECHNIQUE: Volumetric scanning was performed using a multi-row detector CT scanner during bolus infu martin of 100 ml Visipaque 320 (iodixanol) nonionic water-soluble contrast as a cumulative dose for mu ltiple exams. The data was post processed with a variety of visualization algorithms including full volume maximum intensity projection, multi-planar sliding thin slab reformation, curved planar refor mation, and surface rendering techniques. Using automated exposure control and adjustment of the mA and/or kV according to patient size, radiation dose was kept as low as reasonably achievable to obtai n optimal diagnostic quality images. DICOM format image data is available electronically for review and comparison. FINDINGS: There is excellent visualization of the major intracranial arteries out to the second-order branch ve ssels. There is no evidence for aneurysm, vessel truncation or stenosis, and no evidence for vascula r malformation. origin of the right posterior cerebral artery noted CONCLUSION: No acute [place] of [place] vascular findings. Report was called by [Jose Queen at 1003] Electronically signed by: Wilberto Garcia MD 03/16/2018 10:05 AM EST
[2018-03-16 10:07] LABS: Prothrombin Time 10.2 sec (9.8-11.6)
--- NOTE | 2018-03-16 10:25 | CT ---
EXAM DATE: 03/16/2018 10:18 AM EST AGE/SEX: 52 years / Male INDICATIONS: Stroke alert, left side numbness, blurred vision. CLINICAL DATA: This is the patient's initial encounter. Patient reports that signs and symptoms have been present for 1 day and indicates a pain score of 0/10. MEDICAL/SURGICAL HISTORY: Non-responsive. Non-responsive. RADIATION DOSE: 37.83 CTDI (mGy) ; Combined studies COMPARISON: [facility] – [place], CT THORACIC SPINE W/O CONTRAST, 01/03/2017. . TECHNIQUE: Volumetric scanning was performed using a multirow detector CT scanner during bolus infus ion of 100 ml Visipaque 320 (iodixanol) nonionic water-soluble contrast as a cumulative dose for mul tiple exams. The data was postprocessed with a variety of visualization algorithms including full-v olume maximum intensity projection, multiplanar sliding thin-slab reformation, curved-planar reformat ion, and surface-rendering techniques. Using automated exposure control and adjustment of the mA and /or kV according to patient size, radiation dose was kept as low as reasonably achievable to obtain o ptimal diagnostic quality images. DICOM format image data is available electronically for review and comparison. Percent stenosis is calculated using the diameter of the stenotic region over the diameter of the nor mal distal internal carotid artery. FINDINGS: Aortic arch: There is bovine branching of the great vessels from the arch. The origins of the great v essels are widely patent. Right carotid: The right common carotid, internal carotid and external carotid are widely patent. Left carotid: The left common carotid, internal carotid and external carotid circulation is widely pa tent. Vertebral circulation: The left vertebral artery is diminutive in size. The right vertebral is domina nt blood supply to the basilar. Both are patent. The basilar is patent. CONCLUSION: 1. Negative CTA of the carotid and vertebral circulation. Electronically signed by: Jamel Morgan MD 03/16/2018 10:23 AM EST
[2018-03-16 10:26] LABS: Anion Gap 9 meq/L (5-15); Blood Urea Nitrogen 15 mg/dL (7-18); Carbon Dioxide 21.6 meq/L (21.0-32.0); Chloride 102 meq/L (98-107); Glomerular Filtration Rate 52 mL/min (>89); Glucose,Random 418 mg/dL (74-106); Potassium 4.6 meq/L (3.5-5.1); Sodium 133 meq/L (136-145)
[2018-03-16 10:44] LABS: Creatine Kinase 2590 U/L (39-308)
[2018-03-16 11:01] LABS: CKMB Percent 0.5 % (0.0-4.0); Creatine Kinase MB 12.8 ng/mL (0.5-3.6)
[2018-03-16] MEDS ORDERED: Dextrose 50% in Water 50 ML Vial IV.PUSH PRN (12:07)
[2018-03-16] MEDS: Pregabalin 75 MG Capsule PO SCH ×2 (12:09→17:56)
[2018-03-16 12:51] LABS: Bilirubin,Urine Negative (Negative); Clarity,Urine Clear (Clear); Color,Urine Yellow (Yellw/Straw); Glucose,Urine (UA) 500 or Greater mg/dL (Negative); Leukocyte Esterase,Urine Negative (Negative); Nitrite,Urine Negative (Negative); Specific Gravity,Urine 1.046 (1.002-1.035)
[2018-03-16] MEDS: Enoxaparin Inj 40 MG/0.4 ML Syringe SQ SCH (13:15)
--- NOTE | 2018-03-16 13:15 | P.HPFP ---
History of Present Illness Primary Care Physician: UNKNOWN <Christian Nash - 03/18/18 16:32> UNKNOWN <Ted Gtz 03/16/18 13:15> Chief Complaint: blurred vision / LLE numbness <Ted Gtz - 20:29> History of Present Illness: He is a 52-year-old male with past medical history significant for type 2 diabetes hyperaldosteronism bipolar disorder and medullary thyroid cancer who presents today with blurred vision in in the temporal field of the left eye and increased foot numbness. He has a history of bilateral diabetic neuropathy in the lower extremities, however yesterday he noticed at about 9 PM that he had top of his foot and some extending up to about mid calf. This morning when he woke up she had blurred vision in the left eye and reports difficulty walking which she describes as foot drop. Reports that he had never had numbness in the top of his foot before and has never had blurred vision before. [facility] ago and was told that he did not have any problems with his eyes at that time. He states that the left side of the vision in his left eye is blurry, but he denies any loss of light perception, or any floaters. He denies fever, chills, headache, nausea, vomiting, chest pain, palpitations, shortness of breath, diaphoresis, cough, congestion, recent sickness, abdominal pain, change in bowel habits. 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 Sleeve gastrectomy Cholecystectomy Right knee arthroscopically ORIF of ankle <Ted Gtz 03/16/18 21:00> - Diagnosis (1) Transient cerebral ischemia (2) Hyperaldosteronism (3) Bipolar disorder (4) Diabetes (5) Elevated CPK <Christian Nash 03/18/18 16:32> (1) Transient cerebral ischemia (2) Hyperaldosteronism (3) Bipolar disorder (4) Diabetes <Ted Gtz 03/16/18 20:29> Review of Systems All other systems reviewed negative except as stated in HPI <Ted Gtz - 03/16/18 20:29> PMFSH - History History Provided By: Patient <Ted Gtz - 03/16/18 13:15> - Medical History Medical History: Medical History (Last Reviewed 03/16/18 @ 10:00 by Renny Martínez) Diabetes High cholesterol Hypertension MDRO (multiple drug resistant organisms) resistance Onset Date: ~02/06/18 Presence of insulin pump <Christian Nash - 03/18/18 16:32> Medical History (Last Reviewed 03/16/18 @ 10:00 by Renny Martínez) Diabetes High cholesterol Hypertension MDRO (multiple drug resistant organisms) resistance Onset Date: ~02/06/18 Presence of insulin pump <Ted Gtz - 03/16/18 13:15> - Tobacco History Second Hand Smoke Exposure: No <Ted Gtz 03/16/18 13:15> Smoking Status: Never smoker <Ted Gtz 03/16/18 13:15> - Alcohol History How Often Do You Have a Drink Containing Alcohol: 2 to 3 times a week < Ted Gtz - 03/16/18 13:15> - Substance Use History Substance History: No History of Abuse <Ted Gtz - 03/16/18 13:15> - Travel History Recent Travel in the [facility] Within the Last 8 Weeks: No <Ted Gtz - 03/16/18 13:15> Recent Travel Out of the Country Within the Last 8 Weeks: No <Ted Gtz 03/16/18 13:15> - Immunization History Tetanus Immunization: >5 Years <Ted Gtz - 03/16/18 13:15> Medications and Allergies Allergies Allergy/AdvReac Type Severity Reaction Status Date / Time diltiazem Allergy Mild Edema Verified 03/16/18 09:31 isradipine Allergy Mild Edema Verified 03/16/18 09:31 nicardipine Allergy Mild Edema Verified 03/16/18 09:31 nifedipine Allergy Mild Edema Verified 03/16/18 09:31 nimodipine Allergy Mild Edema Verified 03/16/18 09:31 verapamil Allergy Mild Edema Verified 03/16/18 09:31 amlodipine AdvReac Intermediate enlarged Verified 03/16/18 09:31 liver atorvastatin AdvReac Intermediate enlarged Verified 03/16/18 09:31 liver pravastatin AdvReac Intermediate enlarged Verified 03/16/18 09:31 liver simvastatin AdvReac Intermediate enlarged Verified 03/16/18 09:31 liver cholestyramine AdvReac Mild NAUSEA Verified 03/16/18 09:28 enalaprilat AdvReac Mild Cough Verified 03/16/18 09:28 <Christian Nash R - 03/18/18 16:32> Home Medications Medication Instructions Recorded Confirmed Type albuterol sulfate [Ventolin HFA] 2 puff INHALATION Q4H PRN 11/06/17 03/16/18 History aspirin 81 mg PO DAILY 11/06/17 03/16/18 History cyclobenzaprine 10 mg PO TID 11/06/17 03/16/18 History ergocalciferol (vitamin D2) 50,000 unit PO QWEEK 11/06/17 03/16/18 History [Vitamin D2] fluticasone-vilanterol [Breo 1 inh INHALATION DAILY 11/06/17 03/16/18 History Ellipta] gabapentin 600 mg PO BID 11/06/17 03/16/18 History levothyroxine 250 mcg PO DAILY 11/06/17 03/16/18 History liothyronine [Cytomel] 10 mcg PO DAILY 11/06/17 03/16/18 History lurasidone [Latuda] 80 mg PO DAILY 11/06/17 03/16/18 History meloxicam [Mobic] 15 mg PO DAILY 11/06/17 03/16/18 History metoprolol tartrate [Lopressor] 200 mg PO BID 11/06/17 03/16/18 History pantoprazole 40 mg PO BID 11/06/17 03/16/18 History quetiapine [Seroquel] 250 mg PO TID 11/06/17 03/16/18 History spironolactone [Aldactone] 100 mg PO BID 11/06/17 03/16/18 History sumatriptan succinate [Imitrex] 100 mg PO ONCE PRN 11/06/17 03/16/18 History morphine 15 mg PO Q12H 02/06/18 03/16/18 History pregabalin [Lyrica] 150 mg PO BID 02/06/18 03/16/18 History insulin regular human [Humulin R 1 sliding scale dose SUBCUT UD 03/16/18 History Regular U-100 Insuln] quetiapine [Seroquel] 500 mg PO HS 03/16/18 03/16/18 History <Christian Nash R - 03/18/18 16:32> Active Medications: Active Medications Aspirin (Aspirin) 325 mg PO DAILY [facility] Last Admin: 03/17/18 09:36 Dose: 325 mg Clopidogrel Bisulfate (Plavix) 75 mg PO DAILY [facility] Last Admin: 03/17/18 09:37 Dose: 75 mg Dextrose (D50w Vial) 50 ml IV.PUSH UNSCH PRN PRN Reason: PER HYPOGLYCEMIA PROTOCOL Enalaprilat (Vasotec Inj) 1.25 mg IV.PUSH Q4H PRN PRN Reason: For SBP > 220 or DBP > 120 Enoxaparin Sodium (Lovenox Inj) 40 mg SQ Q24H [facility] Last Admin: 03/17/18 14:08 Dose: 40 mg Glucagon (Glucagon Inj) 1 mg OTHER UNSCH PRN PRN Reason: for Hypoglycemia Protocol Sodium Chloride (Ns Inj) 1,000 mls @ 125 mls/hr IV.CONT .Q8H [facility] Last Admin: 03/17/18 14:17 Dose: 125 mls/hr Insulin Aspart (Novolog Insulin Correctional Sugar Inj) 0 unit SQ ACHS [facility]; Protocol Last Admin: 03/17/18 14:17 Dose: 7 unit Insulin Detemir (Levemir Inj) 20 unit SQ BID [facility] Last Admin: 03/17/18 09:38 Dose: 20 unit Lamotrigine (Lamictal) 75 mg PO BID [facility] Last Admin: 03/17/18 09:36 Dose: 75 mg Levothyroxine Sodium (Synthroid) 250 mcg PO Q24H [facility] Last Admin: 03/16/18 21:26 Dose: 250 mcg Liothyronine Sodium (Cytomel) 10 mcg PO BID@0800,2200 [facility] Last Admin: 03/17/18 09:36 Dose: 10 mcg Lorazepam (Ativan Inj) 1 mg IV.PUSH ONCE PRN PRN Reason: SEE DOSE INSTRUCTIONS Last Admin: 03/16/18 18:16 Dose: 1 mg Lurasidone HCl (Latuda) 80 mg PO DAILY [facility] Last Admin: 03/17/18 09:37 Dose: 80 mg Metoprolol Tartrate (Lopressor) 200 mg PO BID [facility] Last Admin: 03/17/18 10:44 Dose: 200 mg Morphine Sulfate (Oramorph Sr) 15 mg PO Q12HR [facility] Last Admin: 03/17/18 09:35 Dose: 15 mg Pantoprazole Sodium (Protonix) 40 mg PO DAILY [facility] Last Admin: 03/17/18 09:37 Dose: 40 mg Pregabalin (Lyrica) 150 mg PO TID [facility] Last Admin: 03/17/18 12:34 Dose: 150 mg Quetiapine Fumarate (Seroquel) 200 mg PO TIDAC [facility] Last Admin: 03/17/18 12:34 Dose: 200 mg Quetiapine Fumarate (Seroquel) 400 mg PO HS [facility] Last Admin: 03/16/18 21:26 Dose: 400 mg Sodium Chloride (Ns Flush) 2 ml IV.FLUSH BID [facility] Last Admin: 03/17/18 09:35 Dose: 2 ml Sodium Chloride (Ns Flush) 2 ml IV.FLUSH PRN PRN PRN Reason: FLUSH AFTER USING IV ACCESS Spironolactone (Aldactone) 100 mg PO BID [facility] Last Admin: 03/17/18 09:36 Dose: 100 mg <Christian Nash R - 03/18/18 16:32> Active Medications Aspirin (Aspirin) 325 mg PO DAILY [facility] Dextrose (D50w Vial) 50 ml IV.PUSH UNSCH PRN PRN Reason: PER HYPOGLYCEMIA PROTOCOL Enalaprilat (Vasotec Inj) 1.25 mg IV.PUSH Q4H PRN PRN Reason: For SBP > 220 or DBP > 120 Enoxaparin Sodium (Lovenox Inj) 40 mg SQ Q24H [facility] Glucagon (Glucagon Inj) 1 mg OTHER UNSCH PRN PRN Reason: for Hypoglycemia Protocol Sodium Chloride (Ns Inj) 1,000 mls @ 70 mls/hr IV.CONT .[id number] [facility] Stop: 03/17/18 00:02 Last Admin: 03/16/18 09:45 Dose: 70 mls/hr Sodium Chloride (Ns Inj) 1,000 mls @ 125 mls/hr IV.CONT .Q8H [facility] Insulin Aspart (Novolog Insulin Correctional Sugar Inj) 0 unit SQ ACHS [facility]; Protocol Lamotrigine (Lamictal) 75 mg PO BID [facility] Levothyroxine Sodium (Synthroid) 250 mcg PO Q24H [facility] Liothyronine Sodium (Cytomel) 10 mcg PO BID@0800,2200 [facility] Lurasidone HCl (Latuda) 80 mg PO DAILY [facility] Metoprolol Tartrate (Lopressor) 200 mg PO BID [facility] Morphine Sulfate (Oramorph Sr) 15 mg PO Q12H [facility] Pregabalin (Lyrica) 150 mg PO TID [facility] Last Admin: 03/16/18 12:09 Dose: 150 mg Quetiapine Fumarate (Seroquel) 100 mg PO QID [facility] Sodium Chloride (Ns Flush) 2 ml IV.FLUSH PRN PRN PRN Reason: FLUSH AFTER USING IV ACCESS Last Admin: 03/16/18 09:45 Dose: 2 ml Sodium Chloride (Ns Flush) 2 ml IV.FLUSH BID [facility] Sodium Chloride (Ns Flush) 2 ml IV.FLUSH PRN PRN PRN Reason: FLUSH AFTER USING IV ACCESS Spironolactone (Aldactone) 100 mg PO BID [facility] Sumatriptan Succinate (Imitrex) 50 mg PO ONCE PRN PRN Reason: MIGRAINE HEADACHE <Ted Gtz - 03/16/18 13:15> Exam Vital signs: Intake & Output 03/17/18 03/18/18 03/18/18 18:59 06:59 18:59 Intake Total 1000 / 1000 Balance 1000 / 1000 Intake: IV 1000 / 1000 NS Inj 1,000 ML @ 125 mls/hr IV 1000 / 1000 .CONT .Q8H [facility] Rx#:[id number] <Christian Nash R - 03/18/18 16:32> Vital Signs 03/16/18 09:25 03/16/18 09:27 03/16/18 09:30 Temperature 98.6 F 97.8 F Pulse Rate 113 H 104 H Respiratory Rate 20 17 Blood Pressure 240/110 H 174/93 H Pulse Oximetry 99 97 97 03/16/18 09:36 03/16/18 09:59 03/16/18 10:27 Temperature 97.8 F 97.7 F Pulse Rate 102 H 103 H 101 H Respiratory Rate 18 17 Blood Pressure 156/87 H 148/84 H Pulse Oximetry 97 97 03/16/18 11:00 11/27/18 12:00 03/16/18 12:11 Temperature 97.9 F 97.7 F Pulse Rate 99 H 97 H 101 H Respiratory Rate 17 18 Blood Pressure 144/83 H 152/86 H Pulse Oximetry 97 98 Intake & Output 03/15/18 03/16/18 03/16/18 18:59 06:59 18:59 Output Total 700 / 700 Balance -700 / -700 Weight 136.078 kg Output: Urine 700 / 700 Other: # Voids 1 <Ted Gtz - 03/16/18 13:15> Narrative: General: Well-developed, alert, and in no acute distress. HEENT: Atraumatic, PERRL, non-icteric sclera and no conjunctival injection, moist mucous membranes Neck: Supple, trachea midline Cardiac: Regular rate and rhythm without murmurs Pulmonary: Non-labored breathing. Lungs clear to auscultation bilaterally with good air movement Abdomen: Normal bowel sounds, soft and non-tender without rebound or guarding Extremities: No edema, 2+ pedal pulses, capillary refill less than 2 seconds, s/ p amputation of the left fourth toe Neurologic: 4-5/5 strength to the left upper and lower extremities. 5/5 strength in right upper and lower extremities. Intact peripheral vision bilaterally, however blurred vision on the left eye temporal visual field. Cranial nerves I through XII otherwise intact. There is some bilateral numbness to the feet. There are new areas of numbness to the top of the left foot and ascending lateral to the mid calf. <Ted Gtz - 03/16/18 21:00> Results - Labs Result diagrams: 03/16/18 09:15 03/16/18 09:15 <Christian Nahs - 03/18/18 16:32> Abnormal lab results 03/17/18 Range/Units 06:50 Hemoglobin A1c 9.3 H (4.3-6.0) % <Christian Nash - 03/18/18 16:32> Abnormal lab results 03/16/18 03/16/18 03/16/18 Range/Units 09:15 09:15 09:32 RBC 4.49 L (4.50-5.90) mil/mm3 Hgb 12.2 L (13.0-17.0) gm/dL POC Hgb (Calc) 12.2 L (13.0-17.0) g/dL Hct 36.9 L (39.0-51.0) % POC Hct 36.0 L (39-51.0) % Plt Count 117 L (150-450) th/mm3 [place] % (Auto) 8.2 H (0.0-8.0) % POC Sodium 135 L (137-144) mmol/L Sodium 133 L (136-145) meq/L Creatinine 1.43 H (0.60-1.30) mg/dL Estimated GFR 52 L (>89) mL/min POC Glucose 405 H 441 H (68-110) mg/dL Random Glucose 418 H (74-106) mg/dL Total Creatine Kinase 2590 H (39-308) U/L CK-MB (CK-2) 12.8 H (0.5-3.6) ng/mL Troponin I Less than 0.02 L (0.02-0.05) ng/mL Ur Specific [place] (1.002-1.035) Urine Ketones (Negative) mg/dL 03/16/18 Range/Units 12:20 RBC (4.50-5.90) mil/mm3 Hgb (13.0-17.0) gm/dL POC Hgb (Calc) (13.0-17.0) g/dL Hct (39.0-51.0) % POC Hct (39-51.0) % Plt Count (150-450) th/mm3 [place] % (Auto) (0.0-8.0) % POC Sodium (137-144) mmol/L Sodium (136-145) meq/L Creatinine (0.60-1.30) mg/dL Estimated GFR (>89) mL/min POC Glucose (68-110) mg/dL Random Glucose (74-106) mg/dL Total Creatine Kinase (39-308) U/L CK-MB (CK-2) (0.5-3.6) ng/mL Troponin I (0.02-0.05) ng/mL Ur Specific [place] 1.046 H (1.002-1.035) Urine Ketones Trace H (Negative) mg/dL Short CBC 03/16/18 Range/Units 09:15 WBC 5.1 (4.0-11.0) th/mm3 Hgb 12.2 L (13.0-17.0) gm/dL Hct 36.9 L (39.0-51.0) % Plt Count 117 L (150-450) th/mm3 BMP 03/16/18 09:15 Sodium 133 L Potassium 4.6 Chloride 102 Carbon Dioxide 21.6 BUN 15 Creatinine 1.43 H Calcium 9.0 Cardiac Enzymes 03/16/18 Range/Units 09:15 Total Creatine Kinase 2590 H (39-308) U/L CK-MB (CK-2) 12.8 H (0.5-3.6) ng/mL Troponin I Less than 0.02 L (0.02-0.05) ng/mL Urine 03/16/18 Range/Units 12:20 Urine Color Yellow (Yellw/Straw) Urine Clarity Clear (Clear) Urine pH 5.0 (5.0-8.5) Ur Specific [place] 1.046 H (1.002-1.035) Urine Protein Negative (Neg-Trace) mg/dL Urine Glucose (UA) 500 or greater (Negative) mg/dL <Ted Gtz - 03/16/18 13:15> - Imaging Impressions Head CT 03/16/18 09:36 CONCLUSION: Negative CT Head non contrast. Report was called by [ Jose Martínez at 0949 hours] Head CTA 03/16/18 09:36 CONCLUSION: No acute [place] vascular findings. Report was called by [Jose Queen at 1003] Neck CTA 03/16/18 09:36 CONCLUSION: 1. Negative CTA of the carotid and vertebral circulation. <Ted Gtz - 03/16/18 13:15> Caprini VTE Risk Assessment Caprini VTE Risk Assessment: Moderate/High Risk (score >= 2) <Ted Gtz - 03/16/18 21:00> Caprini Risk Assessment Model: Point Value = 1 Point Value = 2 Point Value = 3 Point Value = 5 Age 41-60 Minor surgery BMI > 25 kg/m2 Swollen legs Varicose veins or History of unexplained or recurrent spontaneous Oral contraceptives or hormone replacement Sepsis (< 1 month) Serious lung disease, including pneumonia (< 1 month) Abnormal pulmonary function Acute myocardial infarction Congestive heart failure (< 1 month) History of inflammatory bowel disease Medical patient at bed rest Age 61-74 Arthroscopic surgery Major open surgery (> 45 min) Laparoscopic surgery (> 45 min) Malignancy Confined to bed (> 72 hours) Immobilizing plaster cast Central venous access Age >= 75 History of VTE Family history of VTE Factor V Leiden Prothrombin [id number] Lupus anticoagulant Anticardiolipin antibodies Elevated serum homocysteine Heparin-induced thrombocytopenia Other congenital or acquired thrombophilia Stroke (< 1 month) Elective arthroplasty Hip, pelvis, or leg fracture Acute spinal cord injury (< 1 month) <Christian Nash R - 03/18/18 16:32> Point Value = 1 Point Value = 2 Point Value = 3 Point Value = 5 Age 41-60 Minor surgery BMI > 25 kg/m2 Swollen legs Varicose veins or History of unexplained or recurrent spontaneous Oral contraceptives or hormone replacement Sepsis (< 1 month) Serious lung disease, including pneumonia (< 1 month) Abnormal pulmonary function Acute myocardial infarction Congestive heart failure (< 1 month) History of inflammatory bowel disease Medical patient at bed rest Age 61-74 Arthroscopic surgery Major open surgery (> 45 min) Laparoscopic surgery (> 45 min) Malignancy Confined to bed (> 72 hours) Immobilizing plaster cast Central venous access Age >= 75 History of VTE Family history of VTE Factor V Leiden Prothrombin [id number] Lupus anticoagulant Anticardiolipin antibodies Elevated serum homocysteine Heparin-induced thrombocytopenia Other congenital or acquired thrombophilia Stroke (< 1 month) Elective arthroplasty Hip, pelvis, or leg fracture Acute spinal cord injury (< 1 month) <Ted Gtz J - 03/16/18 13:15> Prophylaxis Regimen: Total Risk Factor Score Risk Level Prophylaxis Regimen 0-1 Low Early ambulation 2 Moderate Order ONE of the following: *Sequential Compression Device (SCD) *Heparin 5000 units SQ BID 3-4 Higher Order ONE of the following medications: *Heparin 5000 units SQ TID *Enoxaparin/Lovenox 40 mg SQ daily (WT < 150 kg, CrCl > 30 mL/min) *Enoxaparin/Lovenox 30 mg SQ daily (WT < 150 kg, CrCl > 10-29 mL/min) *Enoxaparin/Lovenox 30 mg SQ BID (WT < 150 kg, CrCl > 30 mL/min) AND/OR *Sequential Compression Device (SCD) 5 or more Highest Order ONE of the following medications: *Heparin 5000 units SQ TID (Preferred with Epidurals) *Enoxaparin/Lovenox 40 mg SQ daily (WT < 150 kg, CrCl > 30 mL/min) *Enoxaparin/Lovenox 30 mg SQ daily (WT < 150 kg, CrCl > 10-29 mL/min) *Enoxaparin/Lovenox 30 mg SQ BID (WT < 150 kg, CrCl > 30 mL/min) AND *Sequential Compression Device (SCD) <Christian Nash R - 03/18/18 16:32> Total Risk Factor Score Risk Level Prophylaxis Regimen 0-1 Low Early ambulation 2 Moderate Order ONE of the following: *Sequential Compression Device (SCD) *Heparin 5000 units SQ BID 3-4 Higher Order ONE of the following medications: *Heparin 5000 units SQ TID *Enoxaparin/Lovenox 40 mg SQ daily (WT < 150 kg, CrCl > 30 mL/min) *Enoxaparin/Lovenox 30 mg SQ daily (WT < 150 kg, CrCl > 10-29 mL/min) *Enoxaparin/Lovenox 30 mg SQ BID (WT < 150 kg, CrCl > 30 mL/min) AND/OR *Sequential Compression Device (SCD) 5 or more Highest Order ONE of the following medications: *Heparin 5000 units SQ TID (Preferred with Epidurals) *Enoxaparin/Lovenox 40 mg SQ daily (WT < 150 kg, CrCl > 30 mL/min) *Enoxaparin/Lovenox 30 mg SQ daily (WT < 150 kg, CrCl > 10-29 mL/min) *Enoxaparin/Lovenox 30 mg SQ BID (WT < 150 kg, CrCl > 30 mL/min) AND *Sequential Compression Device (SCD) <Ted Gtz - 03/16/18 13:15> Assessment and Plan - Assessment (1) Transient cerebral ischemia Code(s): G45.9 - Transient cerebral ischemic attack, unspecified Status: Acute (2) Hyperaldosteronism Code(s): E26.9 - Hyperaldosteronism, unspecified Status: Chronic (3) Bipolar disorder Code(s): F31.9 - Bipolar disorder, unspecified Status: Chronic (4) Diabetes Code(s): E11.9 - Type 2 diabetes mellitus without complications Status: Chronic (5) Elevated CPK Code(s): R74.8 - Abnormal levels of other serum enzymes Status: Acute <KaelynChristian doe Kavon - 03/18/18 16:32> (1) Transient cerebral ischemia Code(s): G45.9 - Transient cerebral ischemic attack, unspecified Status: Acute (2) Hyperaldosteronism Code(s): E26.9 - Hyperaldosteronism, unspecified Status: Chronic (3) Bipolar disorder Code(s): F31.9 - Bipolar disorder, unspecified Status: Chronic (4) Diabetes Code(s): E11.9 - Type 2 diabetes mellitus without complications Status: Chronic <Ted Gtz - 03/16/18 20:29> - Assessment and Plan He is a 52-year-old male who presented with an increase in his left foot numbness and blurred vision in the temporal field of the L eye. 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 twice daily -Will not start statin because patient reports that he cannot tolerate statins Type 2 diabetes with peripheral neuropathy -The dose sliding scale with NovoLog -Continue home medication Lyrica 150 mg p.o. 3 times daily Hypothyroidism secondary to thyroidectomy: -Continue home medication levothyroxine 250 mcg every evening -Continue home medication liothyronine 10 mcg p.o. twice daily Hyperaldosteronism -Continue home medications Spironolactone 100 mg p.o. twice daily Bipolar disorder -Continue home medication of Lamictal 75 mg twice daily, Latuda 80 mg p.o. daily , and Seroquel 200 mg with breakfast lunch and dinner and 100 mg at night Chronic back pain: Continue home medication morphine extended release 15 mg p.o. every 12 hours History of migraines: Treated at home with Imitrex, this medication is contraindicated in acute stroke Fluids: N.p.o. pending swallow eval Electrolytes: monitor and replete as needed Nutrition: Normal saline at 125 cc/h GI prophylaxis: P.o. Protonix 40 mg daily, not as GI prophylaxis, but as a replacement for home medication Nexium VTE prophylaxis: Lovenox 40 mg subcu daily Patient was seen and examined with Dr. Centeno <Ted Gtz - 03/16/18 21:00> - Attending Attestation THIS CASE WAS DISCUSSED WITH THE RESIDENT PHYSICIANS. I HAVE REVIEWED THE RECORD AND AGREE WITH THE ABOVE NOTE AND PLAN OF CARE WAS DISCUSSED. I HAVE AUTHORIZED THE ORDER FOR ADMISSION TO AN IN-PATIENT STATUS. Chrsitian Nsah MD <Christian Nash - 03/18/18 16:32> <Ted Gtz J - Last Filed: 03/16/18 20:29> (1) Transient cerebral ischemia Qualifiers: Transient cerebral ischemia type: unspecified Qualified Code(s): G45.9 - Transient cerebral ischemic attack, unspecified <Christian Nash - Last Filed: 03/18/18 16:32> (1) Transient cerebral ischemia Qualifiers: Transient cerebral ischemia type: unspecified Qualified Code(s): G45.9 - Transient cerebral ischemic attack, unspecified <Ted Gtz J - Last Filed: 03/16/18 20:29> (1) Transient cerebral ischemia Qualifiers: Transient cerebral ischemia type: unspecified Qualified Code(s): G45.9 - Transient cerebral ischemic attack, unspecified <Christian Nash R - Last Filed: 03/18/18 16:32> (1) Transient cerebral ischemia Qualifiers: Transient cerebral ischemia type: unspecified Qualified Code(s): G45.9 - Transient cerebral ischemic attack, unspecified
[2018-03-16] MEDS: Aspirin 325 MG Tablet PO SCH (13:16)
[2018-03-16] MEDS: Sod Chloride 0.9% Inj 1,000 ML IV.CONT SCH ×2 (13:18→21:28)
[2018-03-16] MEDS: Morphine Sulfate 15 MG SR Tablet PO SCH ×2 (14:47→23:23)
--- NOTE | 2018-03-16 15:49 | ECG ---
Date Performed: 03/16/2018 Time Performed: 10:13:01 PTAGE: 52 years EKG: Sinus rhythm INFERIOR MYOCARDIAL INFARCTION ABNORMAL ECG PREVIOUS TRACING : 08/22/2017 09. Compared to previous tracing, there are now prominent infer ior infarct changes. DOCTOR: Augustin Cuadra Interpretating Date/Time 03/16/2018 15:48:03
--- NOTE | 2018-03-16 16:02 | P.CONNEU ---
History of Present Illness Service: Neurology Primary Care Provider: UNKNOWN Chief Complaint: blurred vision History of Present Illness: 52-year-old male admitted for possible stroke. History diabetes with mild numbness in his lower extremities which is chronic however yesterday night he experienced more numbness rating up his left leg up to his mid calf. He went to sleep he woke up this morning and noticed blurred vision of the left visual field. This never happened to him before. He takes aspirin daily at home. He is filing for disability for chronic back pain. Denies any head or neck trauma Review of Systems All other systems reviewed negative except as stated in [facility] - History History Provided By: Patient - Medical History Medical History: Medical History (Last Reviewed 03/16/18 @ 10:00 by Renny Martínez) Diabetes High cholesterol Hypertension MDRO (multiple drug resistant organisms) resistance Onset Date: ~02/06/18 Presence of insulin pump - Tobacco History Second Hand Smoke Exposure: No Smoking Status: Never smoker - Alcohol History How Often Do You Have a Drink Containing Alcohol: 2 to 3 times a week - Substance Use History Substance History: No History of Abuse - Travel History Recent Travel in the [facility] Within the Last 8 Weeks: No Recent Travel Out of the Country Within the Last 8 Weeks: No - Immunization History Tetanus Immunization: >5 Years Medications and Allergies Active Medications: Active Medications Aspirin (Aspirin) 325 mg PO DAILY [facility] Last Admin: 03/16/18 13:16 Dose: 325 mg Dextrose (D50w Vial) 50 ml IV.PUSH UNSCH PRN PRN Reason: PER HYPOGLYCEMIA PROTOCOL Enalaprilat (Vasotec Inj) 1.25 mg IV.PUSH Q4H PRN PRN Reason: For SBP > 220 or DBP > 120 Enoxaparin Sodium (Lovenox Inj) 40 mg SQ Q24H [facility] Last Admin: 03/16/18 13:15 Dose: 40 mg Glucagon (Glucagon Inj) 1 mg OTHER UNSCH PRN PRN Reason: for Hypoglycemia Protocol Sodium Chloride (Ns Inj) 1,000 mls @ 70 mls/hr IV.CONT .[id number] [facility] Stop: 03/17/18 00:02 Last Infusion: 03/16/18 13:16 Dose: Infused Sodium Chloride (Ns Inj) 1,000 mls @ 125 mls/hr IV.CONT .Q8H [facility] Last Admin: 03/16/18 13:18 Dose: 125 mls/hr Insulin Aspart (Novolog Insulin Correctional Sugar Inj) 0 unit SQ ACHS LISA; Protocol Lamotrigine (Lamictal) 75 mg PO BID [facility] Levothyroxine Sodium (Synthroid) 250 mcg PO Q24H [facility] Liothyronine Sodium (Cytomel) 10 mcg PO BID@0800,2200 [facility] Lurasidone HCl (Latuda) 80 mg PO DAILY [facility] Metoprolol Tartrate (Lopressor) 200 mg PO BID [facility] Morphine Sulfate (Oramorph Sr) 15 mg PO Q12HR [facility] Last Admin: 03/16/18 14:47 Dose: 15 mg Pantoprazole Sodium (Protonix) 40 mg PO DAILY [facility] Pregabalin (Lyrica) 150 mg PO TID [facility] Last Admin: 03/16/18 12:09 Dose: 150 mg Quetiapine Fumarate (Seroquel) 200 mg PO TIDAC [facility] Quetiapine Fumarate (Seroquel) 400 mg PO HS [facility] Sodium Chloride (Ns Flush) 2 ml IV.FLUSH PRN PRN PRN Reason: FLUSH AFTER USING IV ACCESS Last Admin: 03/16/18 09:45 Dose: 2 ml Sodium Chloride (Ns Flush) 2 ml IV.FLUSH BID [facility] Sodium Chloride (Ns Flush) 2 ml IV.FLUSH PRN PRN PRN Reason: FLUSH AFTER USING IV ACCESS Spironolactone (Aldactone) 100 mg PO BID [facility] Sumatriptan Succinate (Imitrex) 50 mg PO ONCE PRN PRN Reason: MIGRAINE HEADACHE Allergies Allergy/AdvReac Type Severity Reaction Status Date / Time diltiazem Allergy Mild Edema Verified 03/16/18 09:31 isradipine Allergy Mild Edema Verified 03/16/18 09:31 nicardipine Allergy Mild Edema Verified 03/16/18 09:31 nifedipine Allergy Mild Edema Verified 03/16/18 09:31 nimodipine Allergy Mild Edema Verified 03/16/18 09:31 verapamil Allergy Mild Edema Verified 03/16/18 09:31 amlodipine AdvReac Intermediate enlarged Verified 03/16/18 09:31 liver atorvastatin AdvReac Intermediate enlarged Verified 03/16/18 09:31 liver pravastatin AdvReac Intermediate enlarged Verified 03/16/18 09:31 liver simvastatin AdvReac Intermediate enlarged Verified 03/16/18 09:31 liver cholestyramine AdvReac Mild NAUSEA Verified 03/16/18 09:28 enalaprilat AdvReac Mild Cough Verified 03/16/18 09:28 Home Medications Medication Instructions Recorded Confirmed Type albuterol sulfate [Ventolin HFA] 2 puff INHALATION Q4H PRN 11/06/17 03/16/18 History aspirin 81 mg PO DAILY 11/06/17 03/16/18 History cyclobenzaprine 10 mg PO TID 11/06/17 03/16/18 History ergocalciferol (vitamin D2) 50,000 unit PO QWEEK 11/06/17 03/16/18 History [Vitamin D2] fluticasone-vilanterol [Breo 1 inh INHALATION DAILY 11/06/17 03/16/18 History Ellipta] gabapentin 600 mg PO BID 11/06/17 03/16/18 History levothyroxine 250 mcg PO DAILY 11/06/17 03/16/18 History liothyronine [Cytomel] 10 mcg PO DAILY 11/06/17 03/16/18 History lurasidone [Latuda] 80 mg PO DAILY 11/06/17 03/16/18 History meloxicam [Mobic] 15 mg PO DAILY 11/06/17 03/16/18 History metoprolol tartrate [Lopressor] 200 mg PO BID 11/06/17 03/16/18 History pantoprazole 40 mg PO BID 11/06/17 03/16/18 History quetiapine [Seroquel] 250 mg PO TID 11/06/17 03/16/18 History spironolactone [Aldactone] 100 mg PO BID 11/06/17 03/16/18 History sumatriptan succinate [Imitrex] 100 mg PO ONCE PRN 11/06/17 03/16/18 History morphine 15 mg PO Q12H 02/06/18 03/16/18 History pregabalin [Lyrica] 150 mg PO BID 02/06/18 03/16/18 History quetiapine [Seroquel] 500 mg PO HS 03/16/18 03/16/18 History Exam Vital signs: Vital Signs 03/16/18 09:25 03/16/18 09:27 03/16/18 09:30 Temperature 98.6 F 97.8 F Pulse Rate 113 H 104 H Respiratory Rate 20 17 Blood Pressure 240/110 H 174/93 H Pulse Oximetry 99 97 97 03/16/18 09:36 03/16/18 09:59 03/16/18 10:27 Temperature 97.8 F 97.7 F Pulse Rate 102 H 103 H 101 H Respiratory Rate 18 17 Blood Pressure 156/87 H 148/84 H Pulse Oximetry 97 97 03/16/18 11:00 03/16/18 12:00 03/16/18 12:11 Temperature 97.9 F 97.7 F Pulse Rate 99 H 97 H 101 H Respiratory Rate 17 18 Blood Pressure 144/83 H 152/86 H Pulse Oximetry 97 98 03/16/18 13:00 03/16/18 14:22 03/16/18 15:00 Temperature 97.9 F 98 F 97.8 F Pulse Rate 108 H 110 H 106 H Respiratory Rate 20 17 18 Blood Pressure 140/77 138/85 130/81 Pulse Oximetry 97 99 03/16/18 15:19 Temperature Pulse Rate Respiratory Rate 16 Blood Pressure Pulse Oximetry Intake & Output 03/15/18 03/16/18 03/16/18 18:59 06:59 18:59 Intake Total 320 / 320 Output Total 700 / 700 Balance -380 / -380 Weight 136.078 kg Intake: IV 320 / 320 NS Inj 1,000 ML @ 70 mls/hr IV. 320 / 320 CONT .[id number] [facility] Rx#:[id number] Output: Urine 700 / 700 Other: # Voids 1 Narrative: GENERAL: in NAD, SKIN: Warm and dry. HEAD: Atraumatic. Normocephalic. EYES: Pupils equal and round. No scleral icterus. ENT: No nasal bleeding or discharge. Mucous membranes pink and moist. NECK: Trachea midline. No JVD. CARDIOVASCULAR: Regular rate and rhythm. RESPIRATORY: No accessory muscle use. GASTROINTESTINAL: Abdomen soft, non-tender, nondistended. MUSCULOSKELETAL: Extremities without clubbing, cyanosis, or edema. No obvious deformities. NEUROLOGICAL: Awake and alert. Oriented x3 no aphasia, fluent articulate, No facial asymmetry, OU 3-2mm, eomi, left curvilinear homonymous hemianopsia, No drift, Motor grossly within normal limits. Able raise all 4 extremity gravity. Tone normal in all 4 limbs, light touch pin left leg up to the knee right leg up to the ankle, msr 1-2+ sym, no clonus, planterflexor, PSYCHIATRIC: Appropriate mood and affect; insight and judgment normal. - Constitutional no acute distress - Routine HEENT Exam Head: Present: normocephalic Eye: Present: EOMI Results - Labs CBC & Chem 7: 03/16/18 09:15 03/16/18 09:15 Labs: Laboratory Results - last 24 hr 03/16/18 03/16/18 03/16/18 09:15 09:15 09:15 WBC 5.1 RBC 4.49 L Hgb 12.2 L POC Hgb (Calc) 12.2 L Hct 36.9 L POC Hct 36.0 L MCV 82.2 MCH 27.2 MCHC 33.1 RDW 16.6 Plt Count 117 L MPV 10.8 Neut % (Auto) 64.7 Lymph % (Auto) 25.1 [place] % (Auto) 8.2 H Eos % (Auto) 1.4 Baso % (Auto) 0.6 Neut # (Auto) 3.3 Lymph # (Auto) 1.3 [place] # (Auto) 0.4 Eos # (Auto) 0.1 Baso # (Auto) 0.0 WBC Differential . Differential Comment Auto diff final PT 10.2 INR 1.0 APTT 25.0 POC Sodium 135 L Sodium 133 L POC Potassium 4.5 Potassium 4.6 POC Chloride 102 Chloride 102 Carbon Dioxide 21.6 Anion Gap 9 POC BUN 14 BUN 15 Creatinine 1.43 H POC Creatinine 1.1 Estimated GFR 52 L POC Glucose 405 H Random Glucose 418 H Calcium 9.0 Total Creatine Kinase 2590 H CK-MB (CK-2) 12.8 H CK-MB (CK-2) % 0.5 Troponin I Less than 0.02 L Urine Color Urine Clarity Urine pH Ur Specific [place] Urine Protein Urine Glucose (UA) Urine Ketones Urine Occult Blood Urine Nitrate Urine Bilirubin Urine Urobilinogen Ur Leukocyte Esterase Urine RBC Urine WBC Micro UA Comment Ur Microscopic Review Urine Culture Comments 03/16/18 03/16/18 03/16/18 09:32 12:20 14:12 WBC RBC Hgb POC Hgb (Calc) Hct POC Hct MCV MCH MCHC RDW Plt Count MPV Neut % (Auto) Lymph % (Auto) [place] % (Auto) Eos % (Auto) Baso % (Auto) Neut # (Auto) Lymph # (Auto) [place] # (Auto) Eos # (Auto) Baso # (Auto) WBC Differential Differential Comment PT INR APTT POC Sodium Sodium POC Potassium Potassium POC Chloride Chloride Carbon Dioxide Anion Gap POC BUN BUN Creatinine POC Creatinine Estimated GFR POC Glucose 441 H 326 H Random Glucose Calcium Total Creatine Kinase CK-MB (CK-2) CK-MB (CK-2) % Troponin I Urine Color Yellow Urine Clarity Clear Urine pH 5.0 Ur Specific [place] 1.046 H Urine Protein Negative Urine Glucose (UA) 500 or greater Urine Ketones Trace H Urine Occult Blood Negative Urine Nitrate Negative Urine Bilirubin Negative Urine Urobilinogen Less than 2 Ur Leukocyte Esterase Negative Urine RBC Less than 1 Urine WBC Less than 1 Micro UA Comment Culture not ind Ur Microscopic Review Not Reportable Urine Culture Comments Culture not ind - Imaging Impressions Head CT 03/16/18 09:36 CONCLUSION: Negative CT Head non contrast. Report was called by [ Jose Martínez at 0949 hours] Head CTA 03/16/18 09:36 CONCLUSION: No acute [place] vascular findings. Report was called by [Jose Queen at 1003] Neck CTA 03/16/18 09:36 CONCLUSION: 1. Negative CTA of the carotid and vertebral circulation. Review/Management - Diagnosis (1) Acute ischemic stroke Code(s): I63.9 - Cerebral infarction, unspecified Status: Acute Current Visit: Yes (2) Acute ischemic right [employer] stroke Code(s): I63.531 - Cerebral infarction due to unspecified occlusion or stenosis of right posterior cerebral artery Status: Acute Current Visit: Yes (3) Diabetic foot ulcer Code(s): E11.621 - Type 2 diabetes mellitus with foot ulcer; L97.509 - Non- pressure chronic ulcer of other part of unspecified foot with unspecified severity Status: Acute Current Visit: No (4) Transient cerebral ischemia Code(s): G45.9 - Transient cerebral ischemic attack, unspecified Status: Acute Current Visit: Yes - Review/Management Plan: Probable posterior right hemispheric stroke Risk factors include hypertension, diabetes; mechanism possible small vessel Chronic pain syndrome with spinal cord stimulator Diabetic peripheral neuropathy Recommendation Aspirin Plavix Echo Follow-up fasting lipids, HbA1c Therapy Hematology evaluation with family history of stroke and patient being of young age; exclude hypercoagulable state Follow-up MRI brain scan Stroke risk (3) Diabetic foot ulcer Qualifiers: Diabetic foot ulcer location: toe Diabetes mellitus type: type 1 Laterality : left Non-pressure ulcer stage: limited to breakdown of skin Qualified Code(s ): E10.621 - Type 1 diabetes mellitus with foot ulcer; L97.521 - Non-pressure chronic ulcer of other part of left foot limited to breakdown of skin (4) Transient cerebral ischemia Qualifiers: Transient cerebral ischemia type: unspecified Qualified Code(s): G45.9 - Transient cerebral ischemic attack, unspecified
[2018-03-16] MEDS: Insulin NovoLOG Aspart Correctional Sugar Inj SQ SCH ×2 (18:15→23:19)
--- NOTE | 2018-03-16 18:58 | MR ---
EXAM DATE: 03/16/2018 6:49 PM EST AGE/SEX: 52 years / Male INDICATIONS: CVA. Slurred speech and blurry vision for one day. CLINICAL DATA: This is the patient's initial encounter. Patient reports that signs and symptoms have been present for 1 day and indicates a pain score of 3/10. MEDICAL/SURGICAL HISTORY: Hypertension. Diabetes mellitus type II. Thyroidectomy. Spinal fusio n, Lt ankle sx, Left toe sx., Spinal stimulator- [employer] Model #[id number], Serial [id number] [place] [facility] [place] & W/O CONTRAST, 08/16/2017. . TECHNIQUE: Multiplanar, multisequence examination of the brain was performed without contrast. FINDINGS: Cerebrum: The ventricles are normal for age. No evidence of midline shift, mass lesion, hemorrhage or acute infarction. No extraaxial fluid collections are seen. The pituitary gland and suprasellar cistern are normal in configuration. White Matter: No significant signal abnormalities are seen in the white matter. Posterior Fossa: There is an old lacunar stroke in the right cerebellar hemisphere. The cerebellum an d brainstem are intact. The 4th ventricle is midline. The cerebellopontine angle is unremarkable. The cerebellar tonsils are normal in position. Diffusion Imaging: No focal areas of restricted diffusion are seen. No evidence of acute infarction . Extracranial: The visualized portions of the orbits and paranasal sinuses are unremarkable. CONCLUSION: 1. 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 No evidence of an acute insult or in farct. Electronically signed by: Dewey Madsen MD 03/16/2018 6:57 PM EST
[2018-03-16] MEDS: lamoTRIgine 25 MG TABLET PO SCH (21:24)
[2018-03-16] MEDS: Liothyronine 5 MCG Tablet PO SCH (21:27)
[2018-03-16] MEDS: Metoprolol Tartrate 100 MG Tablet PO SCH (21:28)
[2018-03-16] MEDS ORDERED: Levothyroxine 125 MCG Tablet PO SCH (22:00)
[2018-03-16] MEDS: Insulin Detemir Inj 1,000 UNIT/10 ML Vial SQ SCH (23:20)
[2018-03-17] MEDS: Sod Chloride 0.9% Inj 1,000 ML IV.CONT SCH ×2 (06:06→14:17)
[2018-03-17 08:24] VITALS: RESP 16; O2SAT 96
[2018-03-17] MEDS ORDERED: Lurasidone 80 MG Tablet PO SCH (09:00)
[2018-03-17 09:09] LABS: Chol/HDL Ratio 11.17 Ratio; HDL Cholesterol 19.6 mg/dL (40.0-60.0)
--- NOTE | 2018-03-17 09:11 | P.PNNEU ---
Subjective Subjective Comments: States vision same mainly left eye, no chest pain dyspnea or vertigo or weakness Active Medications: Active Medications Aspirin (Aspirin) 325 mg PO DAILY [facility] Last Admin: 03/16/18 13:16 Dose: 325 mg Clopidogrel Bisulfate (Plavix) 75 mg PO DAILY [facility] Last Admin: 03/16/18 17:25 Dose: 75 mg Dextrose (D50w Vial) 50 ml IV.PUSH UNSCH PRN PRN Reason: PER HYPOGLYCEMIA PROTOCOL Enalaprilat (Vasotec Inj) 1.25 mg IV.PUSH Q4H PRN PRN Reason: For SBP > 220 or DBP > 120 Enoxaparin Sodium (Lovenox Inj) 40 mg SQ Q24H [facility] Last Admin: 03/16/18 13:15 Dose: 40 mg Glucagon (Glucagon Inj) 1 mg OTHER UNSCH PRN PRN Reason: for Hypoglycemia Protocol Sodium Chloride (Ns Inj) 1,000 mls @ 125 mls/hr IV.CONT .Q8H [facility] Last Admin: 03/17/18 06:06 Dose: 125 mls/hr Insulin Aspart (Novolog Insulin Correctional Sugar Inj) 0 unit SQ ACHS [facility]; Protocol Last Admin: 03/16/18 23:19 Dose: 9 unit Insulin Detemir (Levemir Inj) 20 unit SQ BID [facility] Last Admin: 03/16/18 23:20 Dose: 20 unit Lamotrigine (Lamictal) 75 mg PO BID [facility] Last Admin: 03/16/18 21:24 Dose: 75 mg Levothyroxine Sodium (Synthroid) 250 mcg PO Q24H [facility] Last Admin: 03/16/18 21:26 Dose: 250 mcg Liothyronine Sodium (Cytomel) 10 mcg PO BID@0800,2200 [facility] Last Admin: 03/16/18 21:27 Dose: 10 mcg Lorazepam (Ativan Inj) 1 mg IV.PUSH ONCE PRN PRN Reason: SEE DOSE INSTRUCTIONS Last Admin: 03/16/18 18:16 Dose: 1 mg Lurasidone HCl (Latuda) 80 mg PO DAILY [facility] Metoprolol Tartrate (Lopressor) 200 mg PO BID [facility] Last Admin: 03/16/18 21:28 Dose: 200 mg Morphine Sulfate (Oramorph Sr) 15 mg PO Q12HR [facility] Last Admin: 03/16/18 23:23 Dose: 15 mg Pantoprazole Sodium (Protonix) 40 mg PO DAILY [facility] Pregabalin (Lyrica) 150 mg PO TID [facility] Last Admin: 03/16/18 17:56 Dose: 150 mg Quetiapine Fumarate (Seroquel) 200 mg PO TIDAC [facility] Last Admin: 03/16/18 17:25 Dose: 200 mg Quetiapine Fumarate (Seroquel) 400 mg PO HS [facility] Last Admin: 03/16/18 21:26 Dose: 400 mg Sodium Chloride (Ns Flush) 2 ml IV.FLUSH BID [facility] Last Admin: 03/16/18 21:28 Dose: 2 ml Sodium Chloride (Ns Flush) 2 ml IV.FLUSH PRN PRN PRN Reason: FLUSH AFTER USING IV ACCESS Spironolactone (Aldactone) 100 mg PO BID [facility] Last Admin: 03/16/18 21:26 Dose: 100 mg Allergies/Adverse Reactions: Allergies Allergy/AdvReac Type Severity Reaction Status Date / Time diltiazem Allergy Mild Edema Verified 03/16/18 09:31 isradipine Allergy Mild Edema Verified 03/16/18 09:31 nicardipine Allergy Mild Edema Verified 03/16/18 09:31 nifedipine Allergy Mild Edema Verified 03/16/18 09:31 nimodipine Allergy Mild Edema Verified 03/16/18 09:31 verapamil Allergy Mild Edema Verified 03/16/18 09:31 amlodipine AdvReac Intermediate enlarged Verified 03/16/18 09:31 liver atorvastatin AdvReac Intermediate enlarged Verified 03/16/18 09:31 liver pravastatin AdvReac Intermediate enlarged Verified 03/16/18 09:31 liver simvastatin AdvReac Intermediate enlarged Verified 03/16/18 09:31 liver cholestyramine AdvReac Mild NAUSEA Verified 03/16/18 09:28 enalaprilat AdvReac Mild Cough Verified 03/16/18 09:28 Review of Systems All other systems reviewed negative except as stated in HPI Physical Exam Vital signs: Vital Signs 03/16/18 09:25 03/16/18 09:27 03/16/18 09:30 Temperature 98.6 F 97.8 F Pulse Rate 113 H 104 H Respiratory Rate 20 17 Blood Pressure 240/110 H 174/93 H Pulse Oximetry 99 97 97 03/16/18 09:36 03/16/18 09:59 03/16/18 10:27 Temperature 97.8 F 97.7 F Pulse Rate 102 H 103 H 101 H Respiratory Rate 18 17 Blood Pressure 156/87 H 148/84 H Pulse Oximetry 97 97 03/16/18 11:00 03/16/18 12:00 03/16/18 12:11 Temperature 97.9 F 97.7 F Pulse Rate 99 H 97 H 101 H Respiratory Rate 17 18 Blood Pressure 144/83 H 152/86 H Pulse Oximetry 97 98 03/16/18 13:00 03/16/18 14:22 03/16/18 15:00 Temperature 97.9 F 98 F 97.8 F Pulse Rate 108 H 110 H 106 H Respiratory Rate 20 17 18 Blood Pressure 140/77 138/85 130/81 Pulse Oximetry 97 99 03/16/18 15:19 03/16/18 16:00 03/16/18 19:25 Temperature 98.3 F 98.2 F Pulse Rate 104 H 122 H Respiratory Rate 16 16 16 Blood Pressure 141/86 H 148/89 H Pulse Oximetry 93 L 92 L 03/16/18 23:16 03/17/18 03:21 03/17/18 04:00 Temperature 98.9 F 97.9 F Pulse Rate 88 81 82 Respiratory Rate 16 12 Blood Pressure 135/78 132/76 Pulse Oximetry 92 L 92 L 03/17/18 08:00 Temperature Pulse Rate 85 Respiratory Rate 16 Blood Pressure 136/84 Pulse Oximetry 96 Intake & Output 03/16/18 03/17/18 03/17/18 18:59 06:59 18:59 Intake Total 800 / 800 1000 / 1000 Output Total 700 / 700 Balance 100 / 100 1000 / 1000 Weight 136.078 kg Intake: IV 320 / 320 1000 / 1000 NS Inj 1,000 ML @ 125 mls/hr IV 320 / 320 1000 / 1000 .CONT .Q8H [facility] Rx#:[id number] Oral 480 / 480 Output: Urine 700 / 700 Other: # Voids 1 3 Weight On Admission 300 kg Narrative: GENERAL: in NAD, SKIN: Warm and dry. HEAD: Atraumatic. Normocephalic. ENT: No nasal bleeding or discharge. NECK: Trachea midline. No JVD. CARDIOVASCULAR: Regular rate and rhythm. RESPIRATORY: No accessory muscle use. GASTROINTESTINAL: Abdomen soft, non-tender, nondistended. MUSCULOSKELETAL: Extremities without clubbing, cyanosis, or edema. NEUROLOGICAL: Awake and alert. Oriented x3 no aphasia, fluent articulate, No facial asymmetry, OU 3-2mm, no APD, Eomi, left curvilinear hemianopsia, No drift , Motor grossly within normal limits. Able raise all 4 extremity gravity. Tone normal in all 4 limbs, light touch pin left leg up to the knee right leg up to the ankle, PSYCHIATRIC: Appropriate mood and affect; insight and judgment normal. - Constitutional no acute distress - Routine HEENT Exam Head: Present: normocephalic Eye: Present: EOMI Objective Laboratory Results - last 24 hr 03/16/18 03/16/18 03/16/18 09:15 09:15 09:15 WBC 5.1 RBC 4.49 L Hgb 12.2 L POC Hgb (Calc) 12.2 L Hct 36.9 L POC Hct 36.0 L MCV 82.2 MCH 27.2 MCHC 33.1 RDW 16.6 Plt Count 117 L MPV 10.8 Neut % (Auto) 64.7 Lymph % (Auto) 25.1 [place] % (Auto) 8.2 H Eos % (Auto) 1.4 Baso % (Auto) 0.6 Neut # (Auto) 3.3 Lymph # (Auto) 1.3 [place] # (Auto) 0.4 Eos # (Auto) 0.1 Baso # (Auto) 0.0 WBC Differential . Differential Comment Auto diff final ESR PT 10.2 INR 1.0 APTT 25.0 POC Sodium 135 L Sodium 133 L POC Potassium 4.5 Potassium 4.6 POC Chloride 102 Chloride 102 Carbon Dioxide 21.6 Anion Gap 9 POC BUN 14 BUN 15 Creatinine 1.43 H POC Creatinine 1.1 Estimated GFR 52 L POC Glucose 405 H Random Glucose 418 H Calcium 9.0 Total Creatine Kinase 2590 H CK-MB (CK-2) 12.8 H CK-MB (CK-2) % 0.5 Troponin I Less than 0.02 L Urine Color Urine Clarity Urine pH Ur Specific [place] Urine Protein Urine Glucose (UA) Urine Ketones Urine Occult Blood Urine Nitrate Urine Bilirubin Urine Urobilinogen Ur Leukocyte Esterase Urine RBC Urine WBC Micro UA Comment Ur Microscopic Review Urine Culture Comments 03/16/18 03/16/18 03/16/18 09:32 12:20 14:12 WBC RBC Hgb POC Hgb (Calc) Hct POC Hct MCV MCH MCHC RDW Plt Count MPV Neut % (Auto) Lymph % (Auto) [place] % (Auto) Eos % (Auto) Baso % (Auto) Neut # (Auto) Lymph # (Auto) [place] # (Auto) Eos # (Auto) Baso # (Auto) WBC Differential Differential Comment ESR PT INR APTT POC Sodium Sodium POC Potassium Potassium POC Chloride Chloride Carbon Dioxide Anion Gap POC BUN BUN Creatinine POC Creatinine Estimated GFR POC Glucose 441 H 326 H Random Glucose Calcium Total Creatine Kinase CK-MB (CK-2) CK-MB (CK-2) % Troponin I Urine Color Yellow Urine Clarity Clear Urine pH 5.0 Ur Specific [place] 1.046 H Urine Protein Negative Urine Glucose (UA) 500 or greater Urine Ketones Trace H Urine Occult Blood Negative Urine Nitrate Negative Urine Bilirubin Negative Urine Urobilinogen Less than 2 Ur Leukocyte Esterase Negative Urine RBC Less than 1 Urine WBC Less than 1 Micro UA Comment Culture not ind Ur Microscopic Review Not Reportable Urine Culture Comments Culture not ind 03/16/18 03/16/18 03/17/18 17:20 21:32 06:02 WBC RBC Hgb POC Hgb (Calc) Hct POC Hct MCV MCH MCHC RDW Plt Count MPV Neut % (Auto) Lymph % (Auto) [place] % (Auto) Eos % (Auto) Baso % (Auto) Neut # (Auto) Lymph # (Auto) [place] # (Auto) Eos # (Auto) Baso # (Auto) WBC Differential Differential Comment ESR PT INR APTT POC Sodium Sodium POC Potassium Potassium POC Chloride Chloride Carbon Dioxide Anion Gap POC BUN BUN Creatinine POC Creatinine Estimated GFR POC Glucose 334 H 406 H 310 H Random Glucose Calcium Total Creatine Kinase CK-MB (CK-2) CK-MB (CK-2) % Troponin I Urine Color Urine Clarity Urine pH Ur Specific [place] Urine Protein Urine Glucose (UA) Urine Ketones Urine Occult Blood Urine Nitrate Urine Bilirubin Urine Urobilinogen Ur Leukocyte Esterase Urine RBC Urine WBC Micro UA Comment Ur Microscopic Review Urine Culture Comments 03/17/18 03/17/18 06:50 08:35 WBC RBC Hgb POC Hgb (Calc) Hct POC Hct MCV MCH MCHC RDW Plt Count MPV Neut % (Auto) Lymph % (Auto) [place] % (Auto) Eos % (Auto) Baso % (Auto) Neut # (Auto) Lymph # (Auto) [place] # (Auto) Eos # (Auto) Baso # (Auto) WBC Differential Differential Comment ESR 37 H PT INR APTT POC Sodium Sodium POC Potassium Potassium POC Chloride Chloride Carbon Dioxide Anion Gap POC BUN BUN Creatinine POC Creatinine Estimated GFR POC Glucose 331 H Random Glucose Calcium Total Creatine Kinase CK-MB (CK-2) CK-MB (CK-2) % Troponin I Urine Color Urine Clarity Urine pH Ur Specific [place] Urine Protein Urine Glucose (UA) Urine Ketones Urine Occult Blood Urine Nitrate Urine Bilirubin Urine Urobilinogen Ur Leukocyte Esterase Urine RBC Urine WBC Micro UA Comment Ur Microscopic Review Urine Culture Comments Review/Management - Diagnosis (1) Diabetic foot ulcer Code(s): E11.621 - Type 2 diabetes mellitus with foot ulcer; L97.509 - Non- pressure chronic ulcer of other part of unspecified foot with unspecified severity Status: Acute Current Visit: No (2) Transient cerebral ischemia Code(s): G45.9 - Transient cerebral ischemic attack, unspecified Status: Acute Current Visit: Yes - Review/Management Plan: No evidence of stroke on MRI scan Exclude left retinal disease such as a branch retinal artery occlusion Risk factors include hypertension, diabetes; mechanism possible small vessel Chronic pain syndrome with spinal cord stimulator Diabetic peripheral neuropathy Recommendation Can be discharged needs expedited appointment with his parachute folder for retinal eye exam Behavioral modification and risk factor reduction. Weight loss, blood pressure control, blood sugar control, lipid control. Exercise (1) Diabetic foot ulcer Qualifiers: Diabetic foot ulcer location: toe Diabetes mellitus type: type 1 Laterality : left Non-pressure ulcer stage: limited to breakdown of skin Qualified Code(s ): E10.621 - Type 1 diabetes mellitus with foot ulcer; L97.521 - Non-pressure chronic ulcer of other part of left foot limited to breakdown of skin (2) Transient cerebral ischemia Qualifiers: Transient cerebral ischemia type: unspecified Qualified Code(s): G45.9 - Transient cerebral ischemic attack, unspecified
[2018-03-17] MEDS: Morphine Sulfate 15 MG SR Tablet PO SCH (09:35)
[2018-03-17] MEDS: Aspirin 325 MG Tablet PO SCH (09:36)
[2018-03-17] MEDS: Liothyronine 5 MCG Tablet PO SCH (09:36)
[2018-03-17] MEDS: Pregabalin 75 MG Capsule PO SCH ×2 (09:36→12:34)
[2018-03-17] MEDS: lamoTRIgine 25 MG TABLET PO SCH (09:36)
[2018-03-17] MEDS: Insulin NovoLOG Aspart Correctional Sugar Inj SQ SCH ×2 (09:37→14:17)
[2018-03-17] MEDS: Insulin Detemir Inj 1,000 UNIT/10 ML Vial SQ SCH (09:38)
[2018-03-17 10:42] LABS: CKMB Percent 0.5 % (0.0-4.0); Creatine Kinase MB 8.2 ng/mL (0.5-3.6)
[2018-03-17] MEDS: Metoprolol Tartrate 100 MG Tablet PO SCH (10:44)
[2018-03-17 12:30] VITALS: BP 136/82; TEMP 98
[2018-03-17 12:39] LABS: Hemoglobin A1c 9.3 % (4.3-6.0)
--- NOTE | 2018-03-17 12:44 | P.PNFP ---
Subjective Interval history: 52-year-old male who presented to the emergency room with complaints of slight increased numbness in his left lower extremity and left lateral visual disturbance in his left eye. This patient has a history of diabetes along with hyperaldosteronism, bipolar disorder and medullary thyroid cancer previously treated. This morning the patient notes that the numbness in his left leg has improved. He does have a history of bilateral lower extremity. He continues to experience visual abnormalities in the lateral field of his left eye. No pain is noted no other neurologic deficits are noted. This patient was seen by neurology. He has had multiple imaging studies and laboratory studies none of which indicate an acute stroke. Recommendations have been made to control medical risk factors and continue therapy in the ambulatory setting. Expedited ophthalmology referral has been recommended. 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 Results - Labs Result diagrams: 03/16/18 09:15 03/16/18 09:15 Abnormal lab results 03/16/18 03/16/18 03/16/18 Range/Units 12:20 14:12 17:20 ESR (0-15) mm/hr POC Glucose 326 H 334 H (68-110) mg/dl Total Creatine Kinase (39-308) U/L CK-MB (CK-2) (0.5-3.6) ng/mL Triglycerides (42-150) mg/dL Cholesterol (120-200) mg/dL HDL Cholesterol (40.0-60.0) mg/dL Ur Specific [place] 1.046 H (1.002-1.035) Urine Ketones Trace H (Negative) mg/dL 03/16/18 03/17/18 03/17/18 Range/Units 21:32 06:02 06:50 ESR (0-15) mm/hr POC Glucose 406 H 310 H (68-110) mg/dl Total Creatine Kinase (39-308) U/L CK-MB (CK-2) (0.5-3.6) ng/mL Triglycerides 1345 H (42-150) mg/dL Cholesterol 219 H (120-200) mg/dL HDL Cholesterol 19.6 L (40.0-60.0) mg/dL Ur Specific [place] (1.002-1.035) Urine Ketones (Negative) mg/dL 03/17/18 03/17/1803/17/18 Range/Units 06:50 06:50 08:35 ESR 37 H (0-15) mm/hr POC Glucose 331 H (68-110) mg/dl Total Creatine Kinase 1492 H (39-308) U/L CK-MB (CK-2) 8.2 H (0.5-3.6) ng/mL Triglycerides (42-150) mg/dL Cholesterol (120-200) mg/dL HDL Cholesterol (40.0-60.0) mg/dL Ur Specific [place] (1.002-1.035) Urine Ketones (Negative) mg/dL 03/17/18 Range/Units 11:48 ESR (0-15) mm/hr POC Glucose 335 H (68-110) mg/dl Total Creatine Kinase (39-308) U/L CK-MB (CK-2) (0.5-3.6) ng/mL Triglycerides (42-150) mg/dL Cholesterol (120-200) mg/dL HDL Cholesterol (40.0-60.0) mg/dL Ur Specific [place] (1.002-1.035) Urine Ketones (Negative) mg/dL Cardiac Enzymes 03/17/18 Range/Units 06:50 Total Creatine Kinase 1492 H (39-308) U/L CK-MB (CK-2) 8.2 H (0.5-3.6) ng/mL Urine 03/16/18 Range/Units 12:20 Urine Color Yellow (Yellw/Straw) Urine Clarity Clear (Clear) Urine pH 5.0 (5.0-8.5) Ur Specific [place] 1.046 H (1.002-1.035) Urine Protein Negative (Neg-Trace) mg/dL Urine Glucose (UA) 500 or greater (Negative) mg/dL - Imaging Impressions Head MRI 03/16/18 12:12 CONCLUSION: 1. 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 No evidence of an acute insult or infarct. Physical Exam Vital signs: Vital Signs 03/16/18 13:00 03/16/18 14:22 03/16/18 15:00 Temperature 97.9 F 98 F 97.8 F Pulse Rate 108 H 110 H 106 H Respiratory Rate 20 17 18 Blood Pressure 140/77 138/85 130/81 Pulse Oximetry 97 99 03/16/18 15:19 03/16/18 16:00 03/16/18 19:25 Temperature 98.3 F 98.2 F Pulse Rate 104 H 122 H Respiratory Rate 16 16 16 Blood Pressure 141/86 H 148/89 H Pulse Oximetry 93 L 92 L 03/16/18 23:16 03/17/18 03:21 03/17/18 04:00 Temperature 98.9 F 97.9 F Pulse Rate 88 81 82 Respiratory Rate 16 12 Blood Pressure 135/78 132/76 Pulse Oximetry 92 L 92 L 03/17/18 08:00 Temperature Pulse Rate 85 Respiratory Rate 16 Blood Pressure 136/84 Pulse Oximetry 96 Intake & Output 03/16/18 03/17/18 03/17/18 18:59 06:59 18:59 Intake Total 800 / 800 1000 / 1000 Output Total 700 / 700 Balance 100 / 100 1000 / 1000 Weight 136.078 kg Intake: IV 320 / 320 1000 / 1000 NS Inj 1,000 ML @ 125 mls/hr IV 320 / 320 1000 / 1000 .CONT .Q8H [facility] Rx#:[id number] Oral 480 / 480 Output: Urine 700 / 700 Other: # Voids 1 3 Weight On Admission 300 kg Narrative: CONSTITUTIONAL/GEN: normally nourished with increased BMI, in NAD. EYES: conjunctiva normal, PERRLA, EOMI. Gross visual field assessment indicates a lateral field cut of the left eye. ENT: Mouth and pharynx normal. NECK: thyroid midline, carotids symmetrical. LUNGS: clear A-P, respiratory effort is normal. CARDIOVASCULAR: RR without murmur or gallop. No significant edema. GI/ABD: soft without masses, without organomegaly. NEURO: No focal deficits. Gait is normal SKIN: color normal, no rashes noted. HEME/LYMPH: no bruising, petechia or significant adenopathy MUSC: back is normal in appearance. Extremities are normal in appearance. PSYCH/MENTAL STATUS: Alert and oriented x 3. Assessment and Plan - Assessment (1) Transient cerebral ischemia Code(s): G45.9 - Transient cerebral ischemic attack, unspecified Status: Acute Plan: 03/17/18 Neurologic consultation, imaging studies and labs do not indicate evidence of an acute CVA. On admission this patient was significantly hypertensive. Blood pressure now is better controlled. He has a long-standing neuropathy of his lower extremities with slight increased numbness on the left. He also has a left eye lateral visual field deficit that will need further evaluation. 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 Will otherwise plan to discharge the patient can continue ambulatory management of his chronic medical problems. (2) Hyperaldosteronism Code(s): E26.9 - Hyperaldosteronism, unspecified Status: Chronic Plan: / Electrolytes are normal. Blood pressure now has normalized. We will continue ambulatory management. (3) Bipolar disorder Code(s): F31.9 - Bipolar disorder, unspecified Status: Chronic (4) Diabetes Code(s): E11.9 - Type 2 diabetes mellitus without complications Status: Chronic (5) Elevated CPK Code(s): R74.8 - Abnormal levels of other serum enzymes Status: Acute Plan: On admission this patient had no elevation of his CPK. Reviewing his social situation indicates that he is quite sedentary having difficulty ambulating due to complications of his diabetes. The CPK was repeated this morning and is trending down. Other than frequent repositioning and oral hydration no other treatments are indicated at this time. - Assessment and Plan He is a 52-year-old male who presented with an increase in his left foot numbness and blurred vision in the temporal field of the L eye. 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 twice daily -Will not start statin because patient reports that he cannot tolerate statins Type 2 diabetes with peripheral neuropathy -The dose sliding scale with NovoLog -Continue home medication Lyrica 150 mg p.o. 3 times daily Hypothyroidism secondary to thyroidectomy: -Continue home medication levothyroxine 250 mcg every evening -Continue home medication liothyronine 10 mcg p.o. twice daily Hyperaldosteronism -Continue home medications Spironolactone 100 mg p.o. twice daily Bipolar disorder -Continue home medication of Lamictal 75 mg twice daily, Latuda 80 mg p.o. daily , and Seroquel 200 mg with breakfast lunch and dinner and 100 mg at night Chronic back pain: Continue home medication morphine extended release 15 mg p.o. every 12 hours History of migraines: Treated at home with Imitrex, this medication is contraindicated in acute stroke Fluids: N.p.o. pending swallow eval Electrolytes: monitor and replete as needed Nutrition: Normal saline at 125 cc/h GI prophylaxis: P.o. Protonix 40 mg daily, not as GI prophylaxis, but as a replacement for home medication Nexium VTE prophylaxis: Lovenox 40 mg subcu daily Patient was seen and examined with Dr. Centeno (1) Transient cerebral ischemia Qualifiers: Transient cerebral ischemia type: unspecified Qualified Code(s): G45.9 - Transient cerebral ischemic attack, unspecified
[2018-03-17] MEDS: Enoxaparin Inj 40 MG/0.4 ML Syringe SQ SCH (14:08)
--- NOTE | 2018-03-17 14:47 | MB ---
cc: Watson Hou MD DATE: 03/17/2018 REQUESTING PHYSICIAN: Bernardo Queen MD REASON FOR CONSULTATION: Evaluation of possible hypercoagulable state. HISTORY OF PRESENT ILLNESS: A 52-year-old gentleman with a history of diabetes admitted with stroke-like symptoms, specifically consisting of left leg weakness and numbness as well as left eye visual field defects. The patient did not have any other symptoms and apparently is improving according to him. He says since he is 52 years old and he has a family history of strokes. The patient was asked to be evaluated by hematology for possible hypercoagulable state. He did not have any prior history of DVT or PE. REVIEW OF SYSTEMS: Negative for headaches. No neck pain. Left eye with diminished vision which is improving according to him. He does not have any cough, chest pain or shortness of breath. He has left shoulder pain, which is chronic and has no abdominal pain, distention, blood in stool, black stools, frequency, urgency or hematuria. No fevers, night sweats, or weight loss of recent onset. PAST MEDICAL HISTORY: Significant for diabetes, hypercholesterolemia, hypertension, multidrug-resistant infection. MEDICATIONS: He is on insulin pump. SOCIAL HISTORY: Nonsmoker, non-alcohol abuser. He had back surgery several years ago, and after that he has been on disability. He does not work. There is no occupational exposure. FAMILY HISTORY: Significant for his grandmother who had stroke at the age of 60 and subsequently of another stroke in her 70s. His father had a stroke at the age of 65 and he has no other family members with early onset coronary artery disease. PHYSICAL EXAMINATION: GENERAL: An obese, middle-aged man, appearing older, in no apparent distress. VITAL SIGNS: Stable. He is afebrile. HEENT: No pallor or icterus. LYMPHATICS: No lymphadenopathy in the neck, axilla or groins. HEART AND LUNGS: Clear to auscultation. NEUROLOGIC: Alert and oriented x4. Left leg with motor 4/5 in left upper extremity, 5/5 in right upper and lower extremity 5/5. No clonus noted. No spinal tenderness. No meningeal signs. HEART: S1, S2. Regular rate and rhythm. LUNGS: Bilaterally clear without crackles or wheeze. ABDOMEN: Very obese, soft and nontender without palpable hepatosplenomegaly. No guarding, free fluid. EXTREMITIES: No edema or evidence of DVTs. IMAGING STUDIES: MRI of the brain on 03/16/2018 showed old right cerebellar stroke with resultant encephalomalacia, no evidence of an acute infarct. Head CTA has is negative. Neck CTA is also negative for carotid and cerebral occlusions. LABORATORY DATA: Significant for a hemoglobin of 12.2, hematocrit 36.9, platelets 117, and white count of 5.1. ESR 37. Chemistry significant for total CK of 1492, CK-MB 8.2. Triglycerides 135, cholesterol 219. IMPRESSION: A 52-year-old gentleman with a prior history of stroke and currently no stroke-like symptoms. The MRA showed prior cerebellar infarct, and at this point he is certainly very young for strokes, specifically given the fact that we do not know the age at which he had his first cerebellar stroke that is seen on current MRI. 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 Either way, he should be started on aspirin at this time and I will initiate hypercoagulable workup with lupus anticoagulant, anticardiolipin antibodies, factor V Leiden, factor 2 gene mutation, protein C, protein S, and antithrombin III levels and see him in followup in the office with the results. This was discussed with the patient as results will take about 10 days to be back. I gave him my business card with name and telephone number so he can make an appointment for followup. MD GENE Johnson/aleshia , 02:15 PM , 02:26 PM
--- NOTE | 2018-03-17 15:22 | P.DCO ---
- Physical Therapy Order: Evaluate and treat, Improve ambulation, Strength and gait training - Case Management Consult Case Management Consult-Home Health: Yes - Certification I have seen patient Wilberto Zavala on 03/17/18. My clinical findings support the need for the requested home health care services because: Limited mobility due to disease progression, Deconditioned with increased weakness I certify that my clinical findings support that this patient is homebound because: Unsteady gait/balance
[2018-03-17 15:29] VITALS: PULSE 83
== END 2018-03-17 16:33 | disposition home or self-care (01) ==
LOC: NEDA 09:18 → NEPC 09:18 → NEPGCP 15:30
PROVIDERS: ADMIT Family Medicine; ATTEND Family Medicine